=== PATIENT | female | born 1955 | race Caucasian/White ===

== ENCOUNTER → 2017-09-07 09:27 | Outpatient (CLI) | payer OTHER, SELFPAY ==
[2017-09-07 09:42] LABS: Squamous Epithelial Cells - UA 0 SEEN /hpf (5-10)
[2017-09-07 10:47] LABS: Color, Urine Yellow (Yellow); Glucose, Dipstick Normal (Normal); Ketone-Dipstick Negative (Negative); Leukocyte Esterase-Dipstick 25 /ul (Negative); Nitrite-Dipstick Negative (Negative); Occult Blood-Urine 150 /ul (Negative); Protein-Dipstick Negative (Negative); Urine Bilirubin Dipstick Negative (Negative); Urine Clarity Cloudy (Clear); Urine Urobilinogen Normal (Normal)
[2017-09-07 10:53] LABS: Bacteria RARE /hpf (None Seen); Mucous, Urine 1+ /hpf (<or=2+); Red Blood Cells-Urine 0-5 SEEN /hpf (0-5); White Blood Cells 0-5 SEEN /hpf (0-5)
[2017-09-07 10:58] LABS: Absolute Lymphocyte Count 2.17 X10^3/ul (0.83-4.51); Absolute Neutrophil Count 3.1 X10^3/uL (2.0-7.7); Basophil# 0.04 X10^3/uL; Basophil% 0.6 % (0-1); Eosinophil# 0.28 X10^3/uL; Eosinophils% 4.5 % (0-5); Hematocrit 42.1 % (37-47); Hemoglobin 14.1 g/dl (12.0-15.0); Lymphocyte # 2.17 X10^3/ul (4.0); Lymphocyte % 35.1 % (19-41); Mean Corp Hgb Conc 33.5 g/gl (32-36); Mean Corpuscular Hgb 30.9 pg (27.0-32.0); Mean Corpuscular Volume 92.3 fL (81-99); Mean Platelet Vol. 11.1 fl (6.2-12.0); Monocyte# 0.61 X10^3/uL; Monocyte% 9.9 % (0-10); Neutrophil # 3.07 X10^3/uL (2.7-7.7); Neutrophil % 49.6 % (47-70); Platelet Count 310 K/mm3 (150-450); RBC Distribution Width CV 12.1 % (11.6-14.6); Red Blood Count 4.56 M/mm3 (4.2-5.4); White Blood Count 6.2 K/mm3 (4.4-11.0)
[2017-09-07 11:02] LABS: POSITIVE COUNT NO; POSITIVE DIFFERENTIAL NO; POSITIVE MORPHOLOGY NO
[2017-09-07 11:17] LABS: Microalbumin:Creatinine Ratio 6.8 mg/g CRE (<30 mg/g CRE)
[2017-09-07 11:25] LABS: AST(SGOT) 22 U/L (15-37); Alanine Aminotransfer ALT/SGPT 36 U/L (13-56); Albumin, Serum 3.5 g/dL (3.2-5.0); Alkaline Phosphatase 106 U/L (45-117); Anion Gap 6 (5-15); BUN 14 mg/dL (7-18); BUN/Creat Ratio 19.6 RATIO (10-20); Calcium,Total 8.9 mg/dL (8.5-10.1); Chloride 106 mmol/L (98-107); Cholesterol 190 mg/dL (200); Creatinine, Serum 0.72 mg/dL (0.55-1.02); EST Glomerular Filtration Rate 87 mL/min (>60); Est Glom Filt Rate - Afr Amer 106 mL/min (>60); Globulin 3.6 g/dL (2.2-4.2); Glucose 86 mg/dL (74-106); High Density Lipoprotein 48 mg/dL; Potassium 3.9 mmol/L (3.5-5.1); Protein, Total 7.1 g/dL (6.4-8.2); Sodium Level 140 mmol/L (136-145); Thyroid Stim Hormone (TSH) 1.13 uIU/mL (0.358-3.74); Triglycerides 164 mg/dL; Very Low Density Lipoprotein 33 mg/dL (5-40)
[2017-09-09 12:07] LABS: CHOLESTEROL TOTAL 192 mg/dL (100-199); HDL-C 48 mg/dL (>39); HDL-P TOTAL 36.7 umol/L (>=30.5); SMALL LDL-P 856 nmol/L (<=527); TRIGLYCERIDES 167 mg/dL (0-149)
[2017-09-10 11:03] LABS: LDL SIZE 20.4 nm (>20.5); LDL-C 111 mg/dL (0-99); LDL-P 1558 nmol/L (<1000); LP-IR SCORE ** 70 (<=45)
== END ==
PROVIDERS: Family Provider Internal Medicine; PCP Internal Medicine; Visit Provider Internal Medicine
DX: E03.9 Hypothyroidism, unspecified (principal); E78.5 Hyperlipidemia, unspecified; I10 Essential (primary) hypertension
CPT/HCPCS: 36415; 80053; 80061; 81001; 82043; 82570; 83704; 84443; 85025

== ENCOUNTER → 2018-02-22 08:06 | Outpatient (CLI) | payer OTHER, SELFPAY | PROVIDERS: Family Provider Internal Medicine; PCP Internal Medicine; Visit Provider Nurse Practitioner Women's Health | DX: Z12.31 Encounter for screening mammogram for malignant neoplasm of breast (principal) | CPT/HCPCS: 77063; 77067 ==

== ENCOUNTER → 2019-04-24 14:11 | Outpatient (CLI) | payer MEDICARE, OTHER, SELFPAY ==
[2019-04-24 09:35] VITALS: BMI 30.4
== END ==
PROVIDERS: Family Provider Internal Medicine; PCP Internal Medicine; Visit Provider Physician Assistant Surgical
DX: J02.9 Acute pharyngitis, unspecified (principal)
CPT/HCPCS: 87070

== ENCOUNTER → 2019-05-17 08:27 | Outpatient (CLI) | payer MEDICARE, OTHER, SELFPAY ==
[2019-04-19 11:20] VITALS: BMI 30.4
[2019-04-24 09:35] VITALS: BMI 30.4
--- NOTE | 2019-05-17 08:31 | BI_ITS ---
MAMMOGRAPHY - BILATERAL SCREENING REASON FOR EXAM: Female, 63 years old. Routine annual screening examination. PERTINENT HISTORY: Non-contributory. TECHNIQUE: Digital bilateral breast yaquelin (3D mammographic acquisition) in the CC and MLO projections. 2-D mediolateral oblique (MLO) and craniocaudad (CC) views of both breasts were obtained. CAD: Full Field Digital Mammography with Computer Added Detection was performed. COMPARISON: Comparison is made with prior examination dated February 22, 2018. FINDINGS: Breast Composition: There are scattered areas of fibroglandular density. There are no dominant masses or suspicious calcifications. Stable benign-appearing bilateral axillary lymph nodes. Stable scattered calcifications in both breasts. No other significant abnormalities are identified. There has been no significant change since the prior study. BI/SCREEN MAMM (CAD) W/YAQUELIN BILAT IMPRESSION: Stable bilateral screening mammogram. Yearly follow-up mammogram recommended. (A) ASSESSMENT CATEGORY: BIRADS Category 2: Benign. A letter regarding these results will be sent to the patient by the facility within 30 days. Approximately 10% of breast cancers are not detected by mammography. A normal mammogram should not delay biopsy of a clinically suspicious abnormality. [id number] Electronically Signed: Dino Ellis, at 11:04 EDT , Service support ,
--- NOTE | 2019-05-17 09:06 | BD_ITS ---
STUDY: DUAL ENERGY X-RAY ABSORPTIOMETRY / DXA REASON FOR EXAM: Female, 63 years old. The patient is postmenopausal. Loss of height. TECHNIQUE: Bone Mineral Density (BMD) measurements of lumbar spine and bilateral hips were obtained. COMPARISON: None. FINDINGS: Lumbar Spine (L1-L4): g/cm2 (1.075) / T-score (-0.9) / Z-score (0.7) Findings are suggestive of normal bone density with a low fracture risk. Left Femur Total: g/cm2 (0.722) / T-score (-2.3) / Z-score (-1.1) Left Femoral Neck: g/cm2 (0.734) / T-score (-2.2) / Z-score (-0.7) Right Femur Total: g/cm2 (0.691) / T-score (-2.5) / Z-score (-1.3) Right Femoral Neck: g/cm2 (0.738) / T-score (-2.2) / Z-score (-0.7) BD/Dexa Bone Density Study IMPRESSION: The patient is considered osteopenic as outlined below according to World Georgi Organization (WHO) criteria with a high fracture risk. Reference Information: The T-score is the number of standard deviations above or below the standard which is normal for young adults at their peak bone mineral density. The World Health Organization (WHO) interprets the T-scores as follows: Above -1 Normal bone density Between -1 and -2.5 Osteopenia Equal to / or below -2.5 Osteoporosis As a practical clinical guideline, osteopenia may be graded as follows: Mild -1 through -1.5 Moderate -1.6 through -2.0 Severe -2.1 through -2.4 The Z-score is the number of standard deviations above or below age-matched controls. A Z-score of less than -1.5 would be considered abnormal. References: 1. NIH Osteoporosis and Related Bone Diseases http://www.osteo.org 2. International Society for Clinical Densitometry http://www.iscd.org 3. National Osteoporosis Foundation http://www.nof.org Electronically Signed: Dino Ellis, at 12:39 EDT , Service support ,
== END ==
PROVIDERS: Family Provider Internal Medicine; PCP Internal Medicine; Referring Provider Nurse Practitioner Women's Health; Visit Provider Nurse Practitioner Women's Health
DX: Z12.31 Encounter for screening mammogram for malignant neoplasm of breast (principal); Z78.0 Asymptomatic menopausal state
CPT/HCPCS: 77063; 77067; 77080

== ENCOUNTER → 2020-05-18 08:33 | Outpatient (CLI) | payer MEDICARE, OTHER, SELFPAY ==
[2020-04-23 10:27] VITALS: BMI 30.4
[2020-04-23 10:45] VITALS: BMI 30.4
--- NOTE | 2020-05-18 08:38 | BI_ITS ---
MAMMOGRAPHY - BILATERAL SCREENING REASON FOR EXAM: Female, 64 years old. Routine annual screening examination. PERTINENT HISTORY: Non-contributory. TECHNIQUE: Digital bilateral breast yaquelin (3D mammographic acquisition) in the CC and MLO projections. 2-D mediolateral oblique (MLO) and craniocaudad (CC) views of both breasts were obtained. CAD: Full Field Digital Mammography with Computer Added Detection was performed. COMPARISON: Comparison is made with prior study dated 05/17/2019 and 02/22/2018. FINDINGS: Breast Composition: There are scattered areas of fibroglandular density. There are no dominant masses or suspicious calcifications. Stable benign appearing bilateral axillary lymph nodes. Stable scattered microcalcifications more prominent in the left breast. No focal clusters seen. No other significant abnormalities are identified. There has been no significant change since the prior study. BI/SCREEN MAMM (CAD) W/YAQUELIN BILAT IMPRESSION: Stable bilateral screening mammogram. Yearly follow-up mammogram recommended. (A) ASSESSMENT CATEGORY: BIRADS Category 2: Benign. A letter regarding these results will be sent to the patient by the facility within 30 days. Approximately 10% of breast cancers are not detected by mammography. A normal mammogram should not delay biopsy of a clinically suspicious abnormality. [id number] Electronically Signed: Dino Ellis, at 10:13 EDT , Service support ,
== END ==
PROVIDERS: PCP Internal Medicine; Referring Provider Nurse Practitioner Women's Health; Visit Provider Nurse Practitioner Women's Health
DX: Z12.31 Encounter for screening mammogram for malignant neoplasm of breast (principal)
CPT/HCPCS: 77063; 77067

== ENCOUNTER → 2021-01-10 | Outpatient (CLI) | payer MEDICARE, OTHER, SELFPAY ==
[2020-04-23 10:45] VITALS: BMI 30.4
[2021-01-10 10:23] LABS: Potassium 4.6 mmol/L (3.5-5.1)
== END | disposition home or self-care (01) ==
LOC: LABSPEC 10:05
PROVIDERS: PCP Internal Medicine; Referring Provider Internal Medicine; Visit Provider Internal Medicine
DX: E87.5 Hyperkalemia (principal)
CPT/HCPCS: 84132

== ENCOUNTER → 2021-05-20 08:12 | Outpatient (CLI) | payer MEDICARE, OTHER, SELFPAY ==
[2020-04-23 10:45] VITALS: BMI 30.4
--- NOTE | 2021-05-20 08:17 | BI_ITS ---
MAMMOGRAPHY - BILATERAL SCREENING REASON FOR EXAM: Female, 65 years old. Routine annual screening examination. PERTINENT HISTORY: Non-contributory. TECHNIQUE: Digital bilateral breast yaquelin (3D mammographic acquisition) in the CC and MLO projections. 2-D mediolateral oblique (MLO) and craniocaudad (CC) views of both breasts were obtained. CAD: Full Field Digital Mammography with Computer Added Detection was performed. COMPARISON: Comparison is made with prior study 05/18/2020 and 05/17/2019. FINDINGS: Breast Composition: There are scattered areas of fibroglandular density. There are no dominant masses or suspicious calcifications. Stable scattered bilateral microcalcifications more prominent in the left breast. Stable small benign-appearing bilateral axillary lymph nodes. No other significant abnormalities are identified. There has been no significant change since the prior study. BI/SCRN MAMM (CAD)W/YAQUELIN BILAT IMPRESSION: Stable bilateral screening mammogram. Yearly follow-up mammogram recommended. (A) ASSESSMENT CATEGORY: BIRADS Category 2: Benign. A letter regarding these results will be sent to the patient by the facility within 30 days. Approximately 10% of breast cancers are not detected by mammography. A normal mammogram should not delay biopsy of a clinically suspicious abnormality. [id number] Electronically Signed: Dino Ellis MD at 9:13 EDT , Service support ,
== END ==
PROVIDERS: PCP Internal Medicine; Referring Provider Nurse Practitioner Women's Health; Visit Provider Nurse Practitioner Women's Health
DX: Z12.31 Encounter for screening mammogram for malignant neoplasm of breast (principal)
CPT/HCPCS: 77063; 77067

== ENCOUNTER → 2022-04-09 | Outpatient (CLI) | payer MEDICARE, OTHER, SELFPAY ==
--- NOTE | 2022-04-09 09:01 | BD_ITS ---
STUDY: DUAL ENERGY X-RAY ABSORPTIOMETRY / DXA REASON FOR EXAM: Female, 66 years old. [id number]. Patient is postmenopausal. TECHNIQUE: Bone Mineral Density (BMD) measurements of lumbar spine and bilateral hips were obtained. COMPARISON: Comparison is made with prior study dated 05/17/2019. FINDINGS: Lumbar Spine (L1-L4): g/cm2 (0.930) / T-score (-1.1) / Z-score (0.9) Findings are suggestive of osteopenia with a low fracture risk. Left Femur Total: g/cm2 (0.650) / T-score (-2.4) / Z-score (-1.0) Left Femoral Neck: g/cm2 (0.588) / T-score (-2.3) / Z-score (-0.6) Right Femur Total: g/cm2 (0.613) / T-score (-2.7) / Z-score (-1.3) Right Femoral Neck: g/cm2 (0.568) / T-score (-2.5) / Z-score (-0.8) The T-Scores on the most recent prior examination were: Lumbar Spine (L1-L4): There has been worsening of bone density since the previous examination. Left Femur Total: which represents a worsening of 2.1%. Right Femur Total: which represents a worsening of 3.3%. BD/Dexa Bone Density Study IMPRESSION: The patient is considered osteoporotic as outlined below according to World Georgi Organization (WHO) criteria with a high fracture risk. There has been worsening of bone density since the previous examination. Reference Information: The T-score is the number of standard deviations above or below the standard which is normal for young adults at their peak bone mineral density. The World Health Organization (WHO) interprets the T-scores as follows: Above -1 Normal bone density Between -1 and -2.5 Osteopenia Equal to / or below -2.5 Osteoporosis As a practical clinical guideline, osteopenia may be graded as follows: Mild -1 through -1.5 Moderate -1.6 through -2.0 Severe -2.1 through -2.4 The Z-score is the number of standard deviations above or below age-matched controls. A Z-score of less than -1.5 would be considered abnormal. References: 1. NIH Osteoporosis and Related Bone Diseases www osteo.org 2. International Society for Clinical Densitometry www iscd.org 3. National Osteoporosis Foundation www nof.org Electronically Signed: Dino Ellis MD at 10:58 EDT ,
== END | disposition home or self-care (01) ==
PROVIDERS: PCP Internal Medicine; Referring Provider Internal Medicine; Visit Provider Internal Medicine
DX: Z78.0 Asymptomatic menopausal state (principal); M85.80 Other specified disorders of bone density and structure, unspecified site
CPT/HCPCS: 77080

== ENCOUNTER → 2022-07-07 | Outpatient (CLI) | payer MEDICARE, OTHER, SELFPAY ==
--- NOTE | 2022-07-07 10:06 | BI_ITS ---
MAMMOGRAPHY - BILATERAL SCREENING REASON FOR EXAM: Female, 66 years old. Routine annual screening examination. PERTINENT HISTORY: Non-contributory. TECHNIQUE: Digital bilateral breast yaquelin (3D mammographic acquisition) in the CC and MLO projections. 2-D mediolateral oblique (MLO) and craniocaudad (CC) views of both breasts were obtained. CAD: Full Field Digital Mammography with Computer Added Detection was performed. COMPARISON: Comparison is made with prior examination 05/20/2021 and 05/18/2020. FINDINGS: Breast Composition: There are scattered areas of fibroglandular density. There are no dominant masses or suspicious calcifications. Stable benign-appearing bilateral axillary lymph nodes. No other significant abnormalities are identified. There has been no significant change since the prior study. BI/SCRN MAMM (CAD)W/YAQUELIN BILAT IMPRESSION: Stable bilateral screening mammogram. Yearly follow-up mammogram recommended. (A) ASSESSMENT CATEGORY: BIRADS Category 2: Benign. A letter regarding these results will be sent to the patient by the facility within 30 days. Approximately 10% of breast cancers are not detected by mammography. A normal mammogram should not delay biopsy of a clinically suspicious abnormality. [id number] Electronically Signed: Dino Ellis MD at 11:11 [facility] ,
== END | disposition home or self-care (01) ==
LOC: OPBI 10:06
PROVIDERS: PCP Internal Medicine; Visit Provider Internal Medicine
DX: Z12.31 Encounter for screening mammogram for malignant neoplasm of breast (principal)
CPT/HCPCS: 77063; 77067

== ENCOUNTER → 2022-10-16 | Outpatient (CLI) | payer MEDICARE, OTHER, SELFPAY ==
[2022-10-16 10:03] LABS: Potassium 5.4 mmol/L (3.5-5.1)
== END | disposition home or self-care (01) ==
LOC: LABSPEC 09:40
PROVIDERS: PCP Internal Medicine; Referring Provider Internal Medicine; Visit Provider Internal Medicine
DX: E87.5 Hyperkalemia (principal)
CPT/HCPCS: 84132

== ENCOUNTER → 2023-09-02 | Outpatient (CLI) | payer MEDICARE, OTHER, SELFPAY ==
--- NOTE | 2023-09-02 10:02 | BI_ITS ---
MAMMOGRAPHY - BILATERAL SCREENING REASON FOR EXAM: Female, 67 years old. Routine annual screening examination. PERTINENT HISTORY: Non-contributory. TECHNIQUE: Digital bilateral breast yaquelin (3D mammographic acquisition) in the CC and MLO projections. 2-D mediolateral oblique (MLO) and craniocaudad (CC) views of both breasts were obtained. CAD: Full Field Digital Mammography with Computer Added Detection was performed. COMPARISON: Comparison is made with prior study of July 07, 2022 and May 20, 2021. FINDINGS: Breast Composition: There are scattered areas of fibroglandular density. There are no dominant masses or suspicious calcifications. Stable benign-appearing bilateral axillary lymph nodes. No other significant abnormalities are identified. There has been no significant change since the prior study. BI/SCRN MAMM (CAD)W/YAQUELIN BILAT IMPRESSION: Stable bilateral screening mammogram. Yearly follow-up mammogram recommended. (A) ASSESSMENT CATEGORY: BIRADS Category 2: Benign. A letter regarding these results will be sent to the patient by the facility within 30 days. Approximately 10% of breast cancers are not detected by mammography. A normal mammogram should not delay biopsy of a clinically suspicious abnormality. [id number] Electronically Signed: Dino Ellis MD at 12:21 EST ,
== END | disposition home or self-care (01) ==
LOC: OPBI 10:02
PROVIDERS: PCP Internal Medicine; Referring Provider Nurse Practitioner Women's Health; Visit Provider Nurse Practitioner Women's Health
DX: Z12.31 Encounter for screening mammogram for malignant neoplasm of breast (principal)
CPT/HCPCS: 77063; 77067

== ENCOUNTER → 2024-09-06 | Outpatient (CLI) | payer MEDICARE, OTHER, SELFPAY ==
--- NOTE | 2024-09-06 08:31 | BI_ITS ---
PROCEDURE: SCRN MAMM (CAD)W/YAQUELIN BILAT REASON FOR EXAM: F, Age 68 y/o, routine annual mammogram. TECHNIQUE: Bilateral screening digital breast tomosynthesis with 2D and 3D images. Computer aided detection. COMPARISON: Prior exam(s) dating back to September 02, 2023. FINDINGS: The breasts are heterogeneously dense which may obscure small masses. Stable examination. No suspicious masses, areas of developing architectural distortion, or suspicious calcifications. BI/SCRN MAMM (CAD)W/YAQUELIN BILAT IMPRESSION: BI-RADS 1: NEGATIVE. RECOMMEND ANNUAL MAMMOGRAPHIC SCREENING. Follow-up code: Routine Follow-up The patient will be notified of the results by letter. Reading Location: [id number]
== END | disposition home or self-care (01) ==
LOC: OPBI 08:30
PROVIDERS: PCP Internal Medicine; Referring Provider Nurse Practitioner Women's Health; Visit Provider Nurse Practitioner Women's Health
DX: Z12.31 Encounter for screening mammogram for malignant neoplasm of breast (principal)
CPT/HCPCS: 77063; 77067

== ENCOUNTER → 2025-03-06 | Outpatient (CLI) | payer MEDICARE, OTHER, SELFPAY ==
--- NOTE | 2025-03-06 08:28 | US_ITS ---
PROCEDURE: BREAST LIMITED UNILATERAL 03/06/2025 REASON FOR EXAM: F, Age 69 y/o , LEFT BREAST PAIN COMPARISON: Mammogram studies dated 03/06/2025, 09/06/2024, and 09/02/2023.. TECHNIQUE: BREAST LIMITED UNILATERAL FINDINGS: There is no ultrasound abnormality identified in the lower outer quadrant of the left breast to correlate to the breast pain. This area appears to represent normal breast tissue. No suspicious solid or cystic masses are seen. The skin is not abnormally thickened. US/Breast Limited Unilateral IMPRESSION: Unremarkable left breast ultrasound exam. The patient should return in 1 year for routine yearly screening mammography. BI-RADS 1: NEGATIVE RECOMMENDATION: Routine annual follow-up in 1 Year Reading Location: [id number]
--- NOTE | 2025-03-06 08:28 | BI_ITS ---
EXAM: DIAG MAMM W/CAD, BILAT 03/06/2025 CLINICAL HISTORY: F, Age 69 y/o , DIAGNOSTIC BEFORE US CAN BE SCHEDULED. Left breast pain. Pain lower outer quadrant left breast. TECHNIQUE: DIAG MAMM W/CAD, BILAT. COMPARISON: Prior exam(s) dated 09/06/2024 and 09/02/2023. FINDINGS: TISSUE DENSITY: There are scattered areas of fibroglandular density. Bilateral Breast Mammographic Findings: There is no mammographic abnormality identified in the lower outer quadrant of the left breast to correlate to her pain. Further workup with ultrasound will be performed. Benign-appearing secretory type calcifications and round calcifications are seen in the left breast. Benign-appearing secretory type calcifications, vascular calcifications and round calcifications are seen in the right breast. No suspicious masses or suspicious calcifications are seen in either breast. BI/DIAG MAMM W/CAD, BILAT IMPRESSION: There is no mammographic abnormality in the left breast to correlate to the dave ast pain. Further workup with ultrasound will be performed for further evaluation. OVERALL FINAL ASSESSMENT BI-RADS 0: INCOMPLETE - NEED ADDITIONAL IMAGING EVALUATION. RECOMMENDATION: Ultrasound Recommended A letter with findings and recommendations will be mailed to the patient. Reading Location: [id number]
== END | disposition home or self-care (01) ==
PROVIDERS: PCP Internal Medicine; Referring Provider Nurse Practitioner Women's Health; Visit Provider Nurse Practitioner Women's Health
DX: R92.8 Other abnormal and inconclusive findings on diagnostic imaging of breast (principal); N64.4 Mastodynia
CPT/HCPCS: 76642; 77062; 77066; G0279

== ENCOUNTER → 2025-05-11 | Outpatient (CLI) | payer MEDICARE, OTHER, SELFPAY ==
[2025-05-11 17:56] LABS: Hematocrit 42.4 % (37-47); Hemoglobin 13.9 g/dL (12.0-15.0); Immature Granulocytes Count 0.020 X10^3/uL (0.0-0.0); Mean Corp Hgb Conc 32.8 g/dL (32-36); Mean Corpuscular Volume 91.2 fL (81-99); Mean Platelet Vol. 11.1 fl (6.2-12.0); NRBC Flagged by Analyzer 0 % (0-5); Platelet Count 370 K/mm3 (150-450); RBC Distribution Width CV 12.2 % (11.6-14.6); RBC Distribution Width SD 40.7 fl (35.1-43.9); Red Blood Count 4.65 M/mm3 (4.2-5.4); White Blood Count 8.5 K/mm3 (4.4-11.0)
[2025-05-11 18:30] LABS: AST(SGOT) 27 U/L (<=31); Alanine Aminotransfer ALT/SGPT 18 U/L (<=34); Albumin, Serum 4.5 g/dL (3.4-4.8); Alkaline Phosphatase 103 U/L (35-104); Anion Gap 13 (5-15); BUN 9 mg/dL (4-19); BUN/Creat Ratio 12.0 RATIO (10-20); Calcium,Total 10.6 mg/dL (7.6-11.0); Carbon Dioxide 26.5 mmol/L (21.0-32.0); Chloride 104 mmol/L (98-108); Globulin 2.8 g/dL (2.2-4.2); Glucose 104 mg/dL (70-99); Potassium 3.9 mmol/L (3.3-5.1)
== END | disposition home or self-care (01) ==
LOC: MTLAB 16:02
PROVIDERS: PCP Internal Medicine; Referring Provider Internal Medicine; Visit Provider Internal Medicine
DX: R41.82 Altered mental status, unspecified (principal)
CPT/HCPCS: 36415; 80053; 85025

== ENCOUNTER → 2025-05-17 | Outpatient (CLI) | payer MEDICARE, OTHER, SELFPAY | END | disposition home or self-care (01) | PROVIDERS: PCP Internal Medicine; Referring Provider Internal Medicine; Visit Provider Internal Medicine | DX: R07.89 Other chest pain (principal); R94.31 Abnormal electrocardiogram [ECG] [EKG] | CPT/HCPCS: 93225; 93226 ==

== ENCOUNTER → 2025-06-06 | Outpatient (CLI) | payer MEDICARE, OTHER, SELFPAY ==
--- NOTE | 2025-06-06 06:41 | ECHOD_ITS ---
Reason For Study Reason For Study: CHEST PRESSURE Procedure This was a 2D Doppler, Color Flow transthoracic echocardiogram. Exam performed in department. Left Ventricle Normal size and thickness. The left ventricular ejection fraction is 65 %. Normal diastololic function. Right Ventricle Normal right ventricle. Atria The left and right atria are normal. Mitral Valve Mild (1+) mitral valve insufficiency. Tricuspid Valve Moderate-Severe (3+) tricuspid valve insufficiency. Normal pulmonary artery pressure. Aortic Valve Trisinus/trileaflet aortic valve. Pulmonic Valve The pulmonic valve is not well visualized. Mild (1+) pulmonic valve insufficiency. Great Vessels Normal sized aortic root. Pericardium/Pleural No pericardial effusion. MMode/2D Measurements & Calculations LVIDd: 3.8 cm IVSd: 0.85 cm Ao root diam: 3.3 cm LVIDs: 2.0 cm LVPWd: 0.93 cm RVDd: 3.0 cm FS: 47.6 % LAV(MOD-bp): 43.2 ml LVAd ap4: 22.1 cm2 LVAd ap2: 19.8 cm2 LAV(MOD-bp) Indexed: 26.4 ml/m2 LVLd ap4: 6.8 cm LVLd ap2: 6.5 cm LAV(MOD-sp2): 40.0 ml EDV(MOD-sp4): 60.2 ml EDV(MOD-sp2): 51.5 ml LAV(MOD-sp4): 42.8 ml EDV(sp4-el): 60.5 ml EDV(sp2-el): 51.1 ml LVAs ap4: 10.3 cm2 LVAs ap2: 8.6 cm2 LVLs ap4: 5.1 cm LVLs ap2: 5.0 cm ESV(MOD-sp4): 18.4 ml ESV(MOD-sp2): 14.9 ml ESV(sp4-el): 17.8 ml ESV(sp2-el): 12.6 ml EF(MOD-sp4): 69.4 % EF(MOD-sp2): 71.2 % EF(sp4-el): 70.5 % SV(MOD-sp4): 41.8 ml SV(MOD-sp2): 36.6 ml SV(sp4-el): 42.7 ml SI(MOD-sp4): 25.5 ml/m2 SI(MOD-sp2): 22.4 ml/m2 LA A4 area: 16.7 cm2 LA dimension(2D): 3.7 cm RA A4 area: 13.5 cm2 TAPSE: 2.0 cm Time Measurements MV dec time: 0.33 sec Doppler Measurements & Calculations MV E max wilbur: 69.8 cm/sec Lat Peak E' Wilbur: 10.6 cm/sec Med Peak E' Wilbur: 6.5 cm/sec MV A max wilbur: 69.8 cm/sec E/E' lat: 6.6 E/E' med: 10.8 MV E/A: 1.0 Ao V2 max: 141.1 cm/sec LV V1 max: 129.3 cm/sec MV dec slope: 208.9 cm/sec2 Ao max P.0 mmHg LV V1 max P.7 mmHg Ao V2 mean: 94.5 cm/sec LV V1 mean P.4 mmHg Ao mean P.2 mmHg LV V1 mean: 85.1 cm/sec Ao V2 VTI: 33.7 cm LV V1 VTI: 31.1 cm AV (velocity ratio): 0.92 PA V2 max: 78.5 cm/sec PI end-d wilbur: 90.8 cm/sec TR max wilbur: 243.9 cm/sec TR max P.8 mmHg ECHO/Echo Complete Interpretation Summary The left ventricular ejection fraction is 65 %. Mild (1+) mitral valve insufficiency. Moderate-Severe (3+) tricuspid valve insufficiency. Mild (1+) pulmonic valve insufficiency. Ordering Physician: Sherly Avilez Referring Physician: Sherly Avilez Performed By: Tonio Armstrong [facility]
--- OUTSIDE RECORDS SUMMARY | 2025-06-06 06:46 | XMS RPT_ITS | CCD ---
Author Organization [facility] Care Team Providers Care Pipe Threader Name Role Phone Ana Bacon Mee Unavailable Unavailable Duran, Gene Unavailable Unavailable Duran, Gene Unavailable Unavailable Fatmata, Deanna Unavailable Maggi Tena Unavailable Unavailable Unavailable Unavailable Deanna Aponte Unavailable Maggi Tena Unavailable Unavailable Unavailable Unavailable Divya Tena Unavailable Unavailable Gravius, Nereida Unavailable Unavailable Unruly Calero Unavailable Tracey Salomon Unavailable Unavailable Maggi Tena Unavailable Unavailable Gravius, Nereida Unavailable Unavailable Dell Susan Unavailable Unavailable Slarb, Kacy Unavailable Unavailable Napoleon, Guadalupe Unavailable Unavailable Chuck Schmitt Unavailable Unavailable Ciesa, Vanessa Unavailable Fatmata ESCOBEDO Deanna Unavailable Dr. Unruly Calero Unavailable Chuck Schmitt LPN Unavailable Unavailable Ciesa DELIVERY TRUCK DRIVER, Vanessa Unavailable Slarb BRUSH MACHINE SETTER, Kacy Unavailable Unavailable Susan Sharpe LPN Unavailable Unavailable Gravius FORKLIFT TRUCK OPERATOR, Nereida Unavailable Unavailable Maggi Tena RN Unavailable Unavailable Unavailable Unavailable Tracey Salomon LPN Unavailable Unavailable Fatmata DO Deanna Unavailable Dhiraj Hooper CMA Unavailable Unavailable Deanna Aponte DO Primary Care Provider Xavier River MD Unavailable Jose ALBERTS, Yanira Kyle Unavailable Royce Peterson PA-C, AlenC Unavailable Unavailab Divya Hickman RN Unavailable Jemima River MDh A Unavailable Deanna Aponte DO Primary Care Provider Yanira Garcia MD Unavailable [phone] Royce Peterson PA-C, Jayden Unavailable Unavailab julianna Solomon RN, Divya Unavailable Unavailable Unavailable Zurdo OMER, Janie Unavailable Unavailable Isha Zapata MA Unavailable Unavailable Deanna Aponte DO Attending Unavailable Deanna Aponte DO Referring Unavailable Deanna Aponte DO, Dr. Kathleen Primary Care Provider Dr. Deanna Aponte Referring Provider Dorothy SHEARER PRINTED CIRCUIT BOARDS, SHEARER PRINTED CIRCUIT BOARDS-C Shruti Attending Provider MD Storm Acharya Attending Provider Unavailab Deanna Aguero DO Primary Care Provider Lashay BRUSH MACHINE SETTER, Wilbur Unavailable Unavailable Jose BRUSH MACHINE SETTER, JANNIE Unavailable Unavailable Neha CAMPOS, Divya Unavailable Dr. Deanna Aponte Primary Care Provider Dr. Deanna Aponte Referring Provider Dorothy SHEARER PRINTED CIRCUIT BOARDS, SHEARER PRINTED CIRCUIT BOARDS-C Shruti Attending Provider Deanna Aponte DO Primary Care Provider Zaire PT, Candace Unavailable Zaire PT, Candace Unavailable Neha CAMPOS, Divya Unavailable VIDAL SCHMITT Referring Unavailable DEANNA APONTE Primary Care Unavailab VIDAL Smith Referring Unavailable DEANNA APONTE Primary Care Unavailab LALITHA Hennessy Referring Unavailable DEANNA APONTE Primary Care Unavailab DEANNA Aguero Primary Care Unavailab YANIRA Moe Referring Unavailable YANIRA GARCIA Referring Unavailable DEANNA APONTE Primary Care Unavailab YANIRA Moe Referring Unavailable FATMATA DEANNASUZANNA HOYT Primary Care Unavailab le SZIRAYANIRA MONTALVO Referring Unavailable FATMATA, DEANNASUZANNA HOYT Primary Care Unavailab KEMAL Mcneil Attending Unavailable YANIRA GARCIA E Referring Unavailable FATMATA, DEANNASUZANNA HOYT Primary Care Unavailab le SZIRAKATIA, YANIRA E Referring Unavailable FATMATA, DEANNASUZANNA HOYT Primary Care Unavailab le ALDRICH, KEMAL A Attending Unavailable EDILIAIRAKATIA, YANIRA E Referring Unavailable FATMATA, DEANNASUZANNA HOYT [facility] Care Unavailab le FATMATA, DEANNA HOYT Primary Care Unavailab le CASEY GARCIA Attending Unavailable FATMATA, DEANNA HOYT Primary Care Unavailab le PROVIDER, UNKNOWN Referring Unavailable FATMATA, DEANNASUZANNA HOYT Primary Care Unavailab le EDILIAIRAKATIA, YANIRA E Admitting Unavailable YANIRA GARCIA Attending Unavailable FATMATA, DEANNA HOYT [facility]av[facility]ab [employer] Unavailable FATMATA, DEANNA HOYT [facility] Care Unavailab le JOSE, YANIRA E Attending Unavailable EDILIAIRAKATIA, YANIRA E Attending Unavailable FATMATA, DEANNASUZANNA HOYT [facility] Unavailab le JOSE, YANIRA E Attending Unavailable FATMATA, DEANNASUZANNA HOYT Primary Care Unavailab le Fatmata DO, Dr. Dubois Primary Care Provider Dr. Deanna Aponte DO Referring Provider Dorothy SHEARER PR[employer]ED CIRCUIT BOARDS-C, Shruti Attending Provider Cochrane SHEARER [employer]ED [employer] BOARDS-C Shruti Referring Provider Deanna Aponte Attending Unavailable Fatmata, Deanna Referring Unavailable Fatmata, Deanna Primary Care Unavailable Cochrane SHEAR[employer] BOARDS, Shruti Attending Unavailable Cochrane SHEARER PRINTED CIRCUIT BOARDS, Shruti Referring Unavailable Fatmata, Deanna Primary Care Unavailable Dorothy SHEARER PRINTED CIRCUIT BOARDS, Shruti Attending Unavailable Fatmata, Deanna Referring Unavailable Fatmata, Deanna Primary Care Unavailable Dorothy SHEARER PRINTED CIRCUIT BOARDS, Shruti Attending Unavailable Fatmata, Deanna Referring Unavailable Fatmata, Deanna Primary Care Unavailable Fatmata, Deanna Attending Unavailable Fatmata, Deanna Referring Unavailable Fatmata, Deanna Primary Care Unavailable Dorothy SHEARER PR[employer]ED CIRCUIT BOARDS, Shruti Attending Unavailable Cochrane SHEARER PRINTED CIRCUIT BOARDS, Shruti Referring Unavailable Fatmata, Deanna Primary Care Unavailable Fatmata, Deanna Attending Unavailable Deanna Aponte Referring Unavailable Deanna Aponte Primary Care Unavailable Allergies Allergy Classification Reported Allergen(s) Allergy Type Date of Onset Reaction(s) Facility Cephalosporins (antibiotic) (6 sources) Cefaclor; Translations: [Ceclor *CEPHALOSPORINS *] Drug Allergy 02-04-20 18 Mental Status Change, Rash [facility]; [facility] Work Phone: Penicillins (antibiotic) (3 sources) Amoxicillin Drug Allergy 12-13-19 [facility] (1 source) YES - ALLERGIES EXIST; Translations: [YES - ALLERGIES EXIST] Propensity to adverse reactions (disorder) [facility] (1 source) NO FOOD ALLERGIES; Translations: [NO FOOD ALLERGIES] Propensity to adverse reactions (disorder) [facility] (1 source) NO IVP DYE / IODINE ALLERGY; Translations: [NO IVP DYE / IODINE ALLERGY] Propensity to adverse reactions (disorder) [facility] (1 source) NO LATEX ALLERGY; Translations: [NO LATEX ALLERGY] Propensity to adverse reactions (disorder) [facility] (20 sources) Cefaclor; Translations: [Ceclor *CEPHALOSPORINS *] Drug Allergy 02-04-20 18 Mental Status Change, Rash [facility] Work Phone: (8 sources) natural latex rubber; Translations: [LATEX, NATURAL RUBBER] Propensity to adverse reactions 04-19-20 [facility] (16 sources) Penicillin Drug Allergy Rash [facility]; [facility] Work Phone: (20 sources) Amoxicillin; Translations: [AMOXICILLIN] Drug Allergy 12-13-19 23 [facility] (4 sources) Latex Drug Allergy 04-19-20 [facility] (4 sources) Cefaclor; Translations: [CEFACLOR] Drug Allergy 02-04-20 [facility] (1 source) Amoxicillin Drug Allergy 02-23-20 [facility] (1 source) natural latex rubber Drug allergy (disorder) 02-23-20 [facility] Rep[facility] Medications Current Medications Medication Drug Class(es) Dates Sig (Normalized) Sig (Original) acetaminophen 500 mg oral tablet (20 sources) Start: 12-04-2023 take 2 tablets by mouth every eight hours as needed acetaminophen (TYLENOL) 500 mg tablet Take 2 tablets by mouth every 8 hours as needed for pain. 90 tablet 12/04/2023 Active Start: 05-17-2022 End: 12-28-2022 take 2 tablets by mouth every eight hours as needed acetaminophen (TYLENOL) 500 mg tablet Take 2 tablets by mouth three times daily as needed for pain. 84 tablet 0 05/17/2022 12/28/2022 Discontinued Comment on above: Take 2 tablets by mo [facility] three times daily as needed for pain. ascorbic acid 500 mg oral tablet (20 sources) Vitamin C Start: 12-04-2023 End: 12-18-2023 take 1 tablet by mouth twice daily at mealtime ascorbic acid, vitamin C, (VITAMIN C) 500 mg tablet Take 1 tablet by mouth two times a day with meals for 27 doses. 27 tablet 12/04/2023 Active ascorbic acid (V ITAMIN C ORAL) Take by mouth. 0 Suspended Comment on above: Take by mouth. aspirin 81 mg delayed release oral tablet (20 sources) Platelet Aggregation Inhibitor, Nonsteroidal Anti-inflammatory Drug Start: 12-04-2023 End: 01-01-2024 take 1 tablet by mouth twice daily aspirin, enteric coated (ASPIRIN, ENTERIC COATED) 81 mg EC tablet Take 1 tablet by mouth two times a day for 28 days. 56 tablet 12/04/2023 Active Start: 05-17-2022 aspirin, enter ic coated (ECOTRIN LOW STRENGTH) 81 mg EC tablet [The details of the medication are not available because there are pending changes by a home health clinician.] 60 tablet 0 05/17/2022 Active Comment on above: Take 1 tablet by [facility] twice daily. [The details of the medication are not available because there are pending changes by a home health clinician.] azithromycin 250 mg oral tablet (20 sources) Macrolide Antimicrobial Start: 08-05-2024 azithromycin (ZITHROMAX Z-WILLIAM) 250 mg tablet Indications: Bacterial sinusitis 2 tablets by mouth first day then 1 tablet the next 4 days 6 tablet 08/05/2024 Active Start: 09-12-2022 End: 09-19-2022 take 1 tablet by mouth once daily azithromycin 500 mg oral tablet 1 (one) tablet qd for 7 days Quantity: 7 {Tablet} Refills: 0 Ordered: 12-Sep-2022 Janie Renner CMA Start : 12-Sep-2022 End : 19-Sep-2022 Inactive Start: 09-10-2022 End: 04-13-2023 take 1 tablet by mouth once daily Zithromax Z-William 250 mg oral tablet tad tablet qd for 0 days Quantity: 1 {Unspecified} Refills: 0 Ordered: 13-Apr-2023 Wilbur Metz LPN Start : 10-Sep-2022 End : 13-Apr-2023 Discontinued Comments: dispense one package Comment on above: dispense one package calcium carbonate 1250 mg oral tablet (9 sources) Start: 04-23-20 take 1 tablet by mouth once daily Calcium Carbonate (Calcium 500) 500 mg calcium (1,250 mg) tablet Active 500 mg PO DAILY April 23, 2020 12:00am cholecalciferol 0.025 mg oral capsule (5 sources) Vitamin D Start: 04-24-20 19 take 1 capsule by mouth once daily Cholecalciferol (Vitamin D3) 1,000 unit capsule Active 1000 U PO DAILY April 24, 2019 12:00am cholecalciferol, vitamin D3, (VITAMIN D3 ORAL) (20 sources) Start: 05-29-20 22 take 1 capsule by mouth once daily cholecalciferol, vitamin D3, (VITAMIN D3 ORAL) Take 1 capsule by mouth once daily. 05/29/2022 Active Start: 05-29-2022 take 1 capsule by mo uth once daily cholecalciferol, vitamin D3, (VITAMIN D3 ORAL) Take 1 capsule by mouth once daily. 0 05/29/2022 Active Start: 05-29-2022 cholecalcifero l, vitamin D3, (VITAMIN D3 ORAL) [The details of the medication are not available because there are pending changes by a home health clinician.] 0 05/29/2022 Active cholecalciferol, vitamin D3, (VITAMIN D3 ORAL) Take by mouth. 0 Active cholecalciferol, vitamin D3, (VITAMIN D3 ORAL) Take by mouth. 0 Suspended Comment on above: Take by mouth. [The details of the medication are not available because there are pending changes by a home health clinician.] Take 1 capsule by mo uth once daily. clindamycin 300 mg oral capsule (20 sources) Lincosamide Antibacterial Start: 09-04-19 End: 11-24-19 25 take 2 capsules by mouth every hour clindamycin (CLEOCIN) 300 mg capsule Indications: Status post total right knee replacement Take two capsules by mouth one hour prior to dental appointment. 2 capsule 3 11/23/2024 Active Start: 12-28-2022 End: 01-04-2023 take 1 capsule by mouth three times daily clindamycin (CLEOCIN) 300 mg capsule Indications: Submandibular lymphadenitis Take 1 capsule by mouth three times daily for 7 days. 21 capsule 0 12/28/2022 01/04/2023 Active Start: 02-18-2022 End: 12-28-2022 take 2 capsules by mouth every hour clindamycin (CLEOCIN) 300 mg capsule Indications: Status post total right knee replacement Take two capsules by mouth one hour prior to dental appointment. 2 capsule 3 02/18/2022 12/28/2022 Discontinued Comment on above: Take two capsules by mouth one hour prior to dental appointment. Take 1 capsule by mo uth three times daily for 7 days. Lactobacillus acidophilus (20 sources) Start: 05-29-20 take 1 capsule by mouth once daily Lactobacillus acidophilus (PROBIOTIC ORAL) Take 1 capsule by mouth once daily. 05/29/2022 Active Start: 05-29-2022 take 1 capsule by mo uth once daily Lactobacillus acidophilus (PROBIOTIC ORAL) Take 1 capsule by mouth once daily. 0 05/29/2022 Active Start: 05-29-2022 Lactobacillus acidophilus (PROBIOTIC ORAL) [The details of the medication are not available because there are pending changes by a home health clinician.] 0 05/29/2022 Active Lactobacillus ac idophilus (PROBIOTIC ORAL) Take by mouth. 0 Suspended Lactobacillus ac idophilus (PROBIOTIC ORAL) Take by mouth. 0 Active Comment on above: Take by mouth. [The details of the medication are not available because there are pending changes by a home health clinician.] Take 1 capsule by mo uth once daily. Lactobacillus Combination No.8 (Adult Probiotic) 3 billion cell capsule (5 sources) Start: 04-23-20 20 take 3 capsules by mouth once daily Lactobacillus Combination No.8 (Adult Probiotic) 3 billion cell capsule Active 3000 NMA PO DAILY April 23, 2020 12:00am administer with a meal Start: 04-23-2020 take 3 capsules by m outh once daily Lactobacillus Combination No.8 (Adult Probiotic) 3 billion cell capsule Active 3000 MMU CELLS PO DAILY April 23, 2020 12:00am administer with a meal Start: 04-23-2020 take 3 capsules by m outh once daily Lactobacillus Combination No.8 (Adult Probiotic) 3 billion cell capsule Active 3000 MMU CELLS PO DAILY April 22, 2020 11:00pm administer with a meal levothyroxine sodium 0.05 mg oral tablet (20 sources) l-Thyroxine Start: 05-28-2023 take 1 tablet by mouth once daily Synthroid 50 mcg oral tablet 1 Tablet qd for 90 days Quantity: 90 {Tablet} Refills: 3 Ordered: 28-May-2023 Fatmata DO, Deanna Fatmata DOChristalDeanna Start : 28-May-2023 Active Comments: Mail order. Start: 05-28-2023 take 1 tablet by delroy th once daily Synthroid 50 mcg oral tablet 1 Tablet qd for 90 days Quantity: 90 {Tablet} Refills: 3 Ordered: 28-May-2023 Fatmata DO, Deanna Aponte DOChristalDeanna Start : 28-May-2023 Active Comments: Mail order. Start: 05-09-2022 take 1 tablet by delroy th once daily Synthroid 50 MCG Oral Tablet 1 Tablet qd for 90 days Quantity: 90 {Tablet} Refills: 3 Ordered: 09-May-2022 Fatmata DO, Deanna Fatmata DO Deanna Start : 09-May-2022 Active Comments: Mail order. Start: 04-21-2022 take 1 tablet by delroy th once daily Synthroid 50 MCG Oral Tablet 1 Tablet qd for 90 days Quantity: 90 {Tablet} Refills: 3 Ordered: 21-Apr-2022 Fatmata DO, Deanna Fatmata DO Deanna Start : 21-Apr-2022 Active Comments: Mail order. Start: 02-26-2022 take 1 tablet by delroy th once daily Synthroid 50 MCG Oral Tablet 1 Tablet qd for 90 days Quantity: 90 {Tablet} Refills: 3 Ordered: 26-Feb-2022 Fatmata DO, Deanna Fatmata DO Deanna Start : 26-Feb-2022 Active Comments: Mail order. Start: 12-12-2021 take 1 tablet by delroy th once daily Synthroid 50 MCG Oral Tablet 1 Tablet qd for 90 days Quantity: 90 {Tablet} Refills: 1 Ordered: 12-Dec-2021 Deanna Aponte DO, DO, Kathleen Start : 12-Dec-2021 Active Comments: Mail order. Start: 02-03-2018 take 1 tablet by delroy th once daily Levothyroxine (Synthroid) 50 mcg tablet Active 50 ug PO daily February 03, 2018 12:00am Comment on above: Mail order. Take 1 tablet by delroy th daily before breakfast. montelukast 10 mg oral tablet (20 sources) Leukotriene Receptor Antagonist Start: 8 take 1 tablet by mouth once daily in the evening Montelukast 10 mg tablet Active 10 mg PO EVERY EVENING February 03, 2018 12:00am Comment on above: Mail order. Take 1 tablet by delroy th daily at bedtime. Multivitamin preparation (3 sources) Start: 8 take 1 tablet by mouth once daily Multivitamin Active 1 TABLET PO daily February 03, 2018 12:00am Start: 02-03-2018 take 1 tablet by delroy th once daily Multivitamin Active 1 TABLET PO daily February 02, 2018 11:00pm Multivitamin tablet (2 sources) Start: 02-03-2018 Multivitamin t ablet Active 1 {tbl} PO daily February 03, 2018 12:00am mupirocin 0.02 mg/mg topical ointment (3 sources) RNA Synthetase Inhibitor Antibacterial Start: 11-12-2023 End: 11-17-2023 mupirocin (BACTROBAN) 2 % ointment Indications: Pre-op evaluation two times a day for 5 days. Apply 0.5 inch with cotton swab (Q-tip) to each nostril in the morning and evening for 5 days prior to and including day of surgery. 22 g 0 11/12/2023 11/17/2023 Active Comment on above: two times a day for 5 days. Apply 0.5 inch with cotton swab (Q-tip) to each nostril in the morning and evening for 5 days prior to and including day of surgery. oxyCODONE hydrochloride 5 mg oral tablet (20 sources) Opioid Agonist Start: 12-04-2023 End: 12-11-2023 oxyCODONE IR (ROXICODONE) 5 mg immediate release tablet Indications: S/P revision of total knee, right [The details of the medication are not available because there are pending changes by a home health clinician.] 50 tablet 0 12/04/2023 12/11/2023 Active Start: 05-17-2022 End: 05-22-2022 oxyCODONE IR (ROXICODONE) 5 mg immediate release tablet Indications: Pain due to internal orthopedic prosthetic devices, implants and grafts, initial encounter ([facility]) , Infected orthopedic implant, sequela , Status post total right knee replacement [The details of the medication are not available because there are pending changes by a home health clinician.] 42 tablet 0 05/17/2022 05/22/2022 Discontinued (Course of therapy completed) Comment on above: Take 1-2 tablets by mouth every 8 hours as needed for pain. [The details of the medication are not available because there are pending changes by a home health clinician.] polyethylene glycol 3350 72177 mg powder for oral solution (9 sources) Osmotic Laxative Start: 12-04-2023 End: 12-14-2023 polyethylene glycol 3350 (MIRALAX) 17 gram/dose powder Take 17 g by mouth once daily as needed for constipation for up to 10 days. Dissolve dose in 4 - 8 ounces of liquid and take as directed. 170 g 0 12/04/2023 12/14/2023 Active rosuvastatin calcium 40 mg oral tablet (20 sources) HMG-CoA Reductase Inhibitor Start: 02-22-2025 Rosuvastatin 40 mg tablet Active 20 mg PO DAILY February 22, 2025 11:38am Start: 04-14-2019 End: 02-22-2025 take 1 tablet by mouth once daily Rosuvastatin 40 mg tablet Discontinued 40 mg PO DAILY April 19, 2019 12:00am February 22, 2025 11:39am Start: 01-25-2019 take 1 tablet by delroy th once daily Crestor 40 MG Oral Tablet 1 (one) Tablet qd for 90 days Quantity: 90 {Tablet} Refills: 3 Ordered: 25-Jan-2019 Deanna Aponte DO, DO, Kathleen Start : 25-Jan-2019 Active Comments: Mail order. Start: 11-15-2018 End: 11-18-2018 take 1 tablet by mouth once daily Crestor 40 MG Oral Tablet 1 (one) Tablet qd for 90 days Quantity: 90 {Tablet} Refills: 3 Ordered: 18-Nov-2018 Nereida Philip Start : 15-Nov-2018 End : 18-Nov-2018 Discontinued Comments: Mail order. Comment on above: Mail order. Take 40 mg by mouth once daily. therapeutic multivitamin (THERA VITAMIN) tablet (20 sources) Start: 02-03-2018 take 1 tablet by mouth once daily therapeutic multivitamin (THERA VITAMIN) tablet Take 1 tablet by mouth once daily. 02/03/2018 Active Start: 02-03-2018 take 1 tablet by delroy th once daily therapeutic multivitamin (THERA VITAMIN) tablet Take 1 tablet by mouth once daily. 0 02/03/2018 Suspended Start: 02-03-2018 take 1 tablet by delroy th once daily therapeutic multivitamin (THERA VITAMIN) tablet Take 1 tablet by mouth once daily. 0 02/03/2018 Active Comment on above: Take 1 tablet by delroy th once daily. vancomycin (VANCOCIN) 1.25 gram/250 mL in dextrose 5% (13 sources) Start: 05-23-2022 End: 06-26-2022 vancomycin (VANCOCIN) 1.25 gram/250 mL in dextrose 5% [The details of the medication are not available because there are pending changes by a home health clinician.] [id number] mL 0 05/23/2022 06/26/2022 Active Start: 05-23-2022 End: 06-26-2022 inject 1.25 g intravenously every twelve hours, then inject 250 mL intravenously every week vancomycin (VANCOCIN) 1.25 gram/250 mL in dextrose 5% Inject 250 mL intravenously every 12 hours. Vancomycin 1.25gm IV every 12 hours Infuse over 3 hours via Control a [facility] to mix as minibag in 250mL D5W as directed by physician due to pt discomfort during infusion. Tentative stop date: 06/26/22 Weekly labs: CBC/Diff, Creatinine, Vanco trough every Thursday [id number] mL 0 05/23/2022 06/26/2022 Active Start: 05-21-2022 End: 05-23-2022 vancomycin (VANCOCIN) 1.25 gram/250 mL in dextrose 5% [The details of the medication are not available because there are pending changes by a home health clinician.] 0 05/21/2022 05/23/2022 Discontinued (Other) Start: 05-21-2022 inject 1.25 g intrav enously every twelve hours, then inject 1.25 g intravenously every twelve hours vancomycin (VANCOCIN) 1.25 gram/250 mL in dextrose 5% Inject 1.25 g intravenously every 12 hours. Vancomycin 1.25gm IV every 12 hours Infuse over 90 minutes via Control a [facility] to mix as minibag in 250mL D5W 0 05/21/2022 Active Comment on above: Inject 1.25 g intrav enously every 12 hours. Vancomycin 1.25gm IV every 12 hours Infuse over 90 minutes via Control a [facility] to mix as minibag in 250mL D5W Inject 250 mL intrav enously every 12 hours. Vancomycin 1.25gm IV every 12 hours Infuse over 3 hours via Control a [facility] to mix as minibag in 250mL D5W as directed by physician due to pt discomfort during infusion. Tentative stop date: 06/26/22 Weekly labs: CBC/Diff, Creatinine, Vanco trough every Thursday [The details of the medication are not available because there are pending changes by a home health clinician.] Completed/Discontinued Medications Medication Drug Class(es) Dates Sig (Normalized) Sig (Original) acetaminophen 325 mg / HYDROcodone bitartrate 5 mg oral tablet (20 sources) Opioid Agonist HYDROcodone-Acet a minophen 5-325 MG Oral Tablet 1 prior to pt (5-325 MG) Inactive [id number] actuat albuterol 0.09 mg/actuat metered dose inhaler (20 sources) beta2-Adrenergic Agonist Start: 09-10-2022 take 2 puff(s) by inhalation every six hours as needed ProAir HFA 90 mcg/actuation inhalation HFA Aerosol with Adapter 2 (two) Puff q6 hr prn for 90 days Quantity: 3 {Unspecified} Refills: 3 Ordered: 10-Sep-2022 Deanna Aponte DO, DO, Kathleen Start : 10-Sep-2022 Active Comments: Mail order. dispense 3boxes Start: 05-29-2022 take 1 puff(s) by in halation every four hours as needed for wheezing albuterol sulfate (PROAIR HFA INHALATION) Inhale 1 Puff as instructed every 4 hours as needed (wheezing sob). 05/29/2022 Active Start: 05-29-2022 take 1 puff(s) by in halation every four hours as needed for wheezing albuterol sulfate (PROAIR HFA INHALATION) Inhale 1 Puff as instructed every 4 hours as needed (wheezing sob). 0 05/29/2022 Active Start: 05-29-2022 albuterol sulf ate (PROAIR HFA INHALATION) [The details of the medication are not available because there are pending changes by a home health clinician.] 0 05/29/2022 Active Start: 10-26-2017 take 2 puff(s) by in halation every six hours as needed ProAir HFA 108 (90 Base) MCG/ACT Inhalation Aerosol Solution 2 (two) Puff q6 hr prn for 90 days Quantity: 3 {Box} Refills: 3 Ordered: 26-Oct-2017 Deanna Aponte DO, DO, Kathleen Start : 26-Oct-2017 Active Comments: Mail order. Start: 10-26-2017 take 2 puff(s) by in halation every six hours as needed ProAir HFA 108 (90 Base) MCG/ACT Inhalation Aerosol Solution 2 (two) Puff q6 hr prn for 90 days Quantity: 3 {Box} Refills: 3 Ordered: 26-Oct-2017 Deanna Aponte DO, DO, Kathleen Start : 26-Oct-2017 Active Comments: Mail order. albuterol sulfat e (PROAIR HFA INHALATION) Inhale 1 Puff as instructed as needed. 0 Suspended albuterol sulfat e (PROAIR HFA INHALATION) Inhale 1 Puff as instructed as needed. 0 Active Comment on above: Mail order. Inhale 1 Puff as ins tructed as needed. [The details of the medication are not available because there are pending changes by a home health clinician.] Mail order. dispense 3boxes Inhale 1 Puff as ins tructed every 4 hours as needed (wheezing sob). amoxicillin 875 mg / clavulanate 125 mg oral tablet (18 sources) Penicillin-class Antibacterial Start: 09-12-19 End: 09-22-19 take 1 tablet by mouth twice daily amoxicillin-pot clavulanate 875-125 mg oral tablet 1 (one) tablet bid for 10 days Quantity: 20 {Tablet} Refills: 0 Ordered: 12-Sep-2022 Janie Renner CMA Start : 12-Sep-2022 End : 22-Sep-2022 Inactive budesonide 0.5 mg/ml inhalation suspension (20 sources) Corticosteroid Start: 09-10-19 End: 10-11-19 23 take 1 mL by inhalation twice daily Pulmicort 1 mg/2 mL inhalation Ampul For Nebulization 1 (one) mL bid for 30 days Quantity: 60 {Milliliter} Refills: 0 Ordered: 10-Sep-2022 Isha Zapata MA Start : 10-Sep-2022 End : 10-Oct-2022 Inactive Comments: may substitute one for nebulizer if less expensive on her ins plan Comment on above: may substitute one f or nebulizer if less expensive on her ins plan calcium acetate 1000 mg oral tablet (20 sources) take 1 tablet by mouth once daily Calcium Acetate 1000 MG Oral Tablet 1 qd (1000 MG) Active 1 ml denosumab 60 mg/ml prefilled syringe (20 sources) RANK Ligand Inhibitor Start: 05-07-20 End: 09-10-19 Prolia 60 mg/mL subcutaneous syringe 1 (one) Milliliter [id number] for 0 days Quantity: 1 {Milliliter} Refills: 1 Ordered: 10-Sep-2022 Sandie Dhiraj OMER Start : 07-May-2022 End : 10-Sep-2022 Inactive docusate sodium 100 mg oral capsule (20 sources) Start: 12-04-19 End: 01-03-20 24 take 1 capsule by mouth every twelve hours as needed docusate sodium (COLACE) 100 mg capsule Take 1 capsule by mouth two times a day as needed for constipation. 60 capsule 12/04/2023 01/03/2024 take 1 capsule by mouth twice da tito Colace 100 MG Oral Capsule 1 bid (100 MG) Inactive doxycycline hyclate 100 mg oral capsule (20 sources) Tetracycline-class Drug Start: 03-03-2019 End: 04-18-2019 take 1 capsule by mouth twice daily Doxycycline Hyclate 100 MG Oral Capsule 1 (one) Capsule bid for 0 days Quantity: 20 {Capsule} Refills: 0 Ordered: 18-Apr-2019 Guadalupe Bender Start : 03-Mar-2019 End : 18-Apr-2019 Inactive estradiol 0.1 mg/ml vaginal cream (20 sources) Estrogen Start: 05-20-2021 End: 09-06-2024 Estradiol (Estrace) 0.01 % (0.1 mg/gram) cream Discontinued 0 VAGINAL .COMPLEX 42.5 2 September 02, 2023 12:17pm September 06, 2024 10:13am pea sized amount VAGINAL twice a week; Start: 05-20-2021 End: 09-02-2023 Estradiol (Estrace) 0.01 % ( 0.1 mg/gram) cream Active 0 VAGINAL .COMPLEX 42.5 September 02, 2023 11:17am pea sized amount VAGINAL twice a week; Start: 04-23-2020 End: 05-20-2021 Estradiol (Estrace) 0.01 % ( 0.1 mg/gram) cream Discontinued 0 VAGINAL .COMPLEX 42.5 2 April 23, 2020 12:00am May 20, 2021 8:56am pea sized amount VAGINAL every other day X 4 weeks then twice a week; Start: 04-23-2020 End: 05-20-2021 Estradiol (Estrace) 0.01 % ( 0.1 mg/gram) cream Discontinued 0 VAGINAL .COMPLEX 42.5 April 22, 2020 11:00pm May 20, 2021 7:56am pea sized amount VAGINAL every other day X 4 weeks then twice a week; Start: 02-03-2018 End: 04-24-2019 Estradiol (Estrace) 0.01 % ( 0.1 mg/gram) cream Discontinued 0 VAGINAL .COMPLEX 42.5 2 February 03, 2018 12:00am April 24, 2019 9:29am pea sized amount VAGINAL every other day X 4 weeks then twice a week; Start: 02-03-2018 End: 04-24-2019 Estradiol (Estrace) 0.01 % ( 0.1 mg/gram) cream Discontinued 0 VAGINAL .COMPLEX 42.5 February 02, 2018 11:00pm April 24, 2019 8:29am pea sized amount VAGINAL every other day X 4 weeks then twice a week; estradiol (ESTRA CE) 0.01 % (0.1 mg/gram) vaginal cream Use 1 g vaginally twice a week. Active Estradiol 0.1 MG /GM Vaginal Cream twice a week (0.1 MG/GM) Active Comment on above: Use 1 g vaginally tw ice a week. ibandronic acid 150 mg oral tablet (10 sources) Bisphosphonate Start: 3 End: 3 take 1 tablet by mouth every month Boniva 150 mg oral tablet 1 Tablet every month for 0 days Quantity: 3 {Tablet} Refills: 0 Ordered: 13-Apr-2023 Wilbur Metz LPN Start : 05-Nov-2022 End : 13-Apr-2023 Discontinued Comments: Mail order. Comment on above: Mail order. inositol 141 mg / niacin 500 mg oral capsule (5 sources) Nicotinic Acid Start: 8 End: 9 Niacin (Inositol Niacinate) 500 mg capsule Discontinued 1000 mg PO 0 February 03, 2018 12:00am April 19, 2019 10:51am Start: 02-03-2018 End: 04-19-2019 Niacin (Inositol Niacinate) Discontinued 1000 MG PO February 02, 2018 11:00pm April 19, 2019 9:51am 10 ml lidocaine hydrochloride 10 mg/ml injection (1 source) Antiarrhythmic, Amide Local Anesthetic Start: 05-01-2022 End: 05-01-2022 lidocaine (PF) 10 mg/mL (1 %) 3 mL injection (XYLOCAINE) lisinopril 10 mg oral tablet (20 sources) Angiotensin Converting Enzyme Inhibitor Start: 04-18-2019 End: 04-18-2019 take 1 tablet by mouth once daily Lisinopril 10 MG Oral Tablet 1 (one) Tablet daily for 90 days Quantity: 90 {Tablet} Refills: 1 Ordered: 18-Apr-2019 Deanna Aponte DO, DO, Kathleen Start : 18-Apr-2019 End : 18-Apr-2019 Discontinued Comments: Mail order. watch bp -- getting low with wt loss and symptomatic with dizzy Start: 08-20-2018 take 1 tablet by delroy th once daily Lisinopril 10 MG Oral Tablet 1 (one) Tablet Tablet daily for 90 days Quantity: 90 {Tablet} Refills: 1 Ordered: 20-Aug-2018 Deanna Aponte DO, DO, Kathleen Start : 20-Aug-2018 Active Start: 02-03-2018 End: 04-19-2019 take 1 tablet by mouth once daily Lisinopril 10 mg tablet Discontinued 10 mg PO daily February 03, 2018 12:00am April 19, 2019 10:51am Comment on above: Mail order. Mail order. watch bp -- getting low with wt loss and symptomatic with dizzy Take 1 tablet by delroy th once daily. niacin 500 mg oral tablet (20 sources) Nicotinic Acid take 1 tablet by mouth once daily Niacin 500 MG Oral Tablet 1 qd (500 MG) Inactive pravastatin sodium 80 mg oral tablet (20 sources) HMG-CoA Reductase Inhibitor Start: 9 End: 9 take 1 tablet by mouth once daily Pravastatin Sodium 80 MG Oral Tablet 1 (one) Tablet daily for 90 days Quantity: 90 {Tablet} Refills: 1 Ordered: 18-Nov-2018 Nereida Philip CMA Start : 15-Nov-2018 End : 18-Nov-2018 Discontinued Comments: Mail order. Start: 07-28-2018 take 1 tablet by delroy th once daily Pravastatin Sodium 80 MG Oral Tablet 1 (one) Tablet daily for 90 days Quantity: 90 {Tablet} Refills: 1 Ordered: 28-Jul-2018 Deanna Aponte DO, DO, Kathleen Start : 28-Jul-2018 Active Start: 01-25-2018 End: 04-19-2019 take 1 tablet by mouth once daily Pravastatin 40 mg tablet Discontinued 40 mg PO daily February 03, 2018 12:00am April 19, 2019 10:51am Comment on above: Mail order. predniSONE 20 mg oral tablet (20 sources) Start: 3 End: 3 take 2 tablets by mouth twice daily, then take 1 tablet by mouth twice daily, then take 1 tablet by mouth once daily predniSONE 20 mg oral tablet tad tablet uad for 22 days Quantity: 34 {Tablet} Refills: 0 Ordered: 10-Sep-2022 Janie Renner CMA Start : 10-Sep-2022 End : 02-Oct-2022 Inactive Comments: 2tabs bid for 2days then 1tab bid for 6days then 1tab daily for 2weeks dispense quantity sufficent Comment on above: 2tabs bid for 2days then 1tab bid for 6days then 1tab daily for 2weeks dispense quantity sufficent Probiotic (17 sources) Probiotic Active risedronate sodium 30 mg oral tablet (20 sources) Start: 3 End: 3 take 1 tablet by mouth every month risedronate 30 mg oral tablet 1 (one) tablet qmonth for 0 days Quantity: 3 {Tablet} Refills: 3 Ordered: 05-Nov-2022 Kacy Lewsi LPN Start : 08-Oct-2022 End : 05-Nov-2022 Inactive Start: 08-13-2022 take 1 tablet by delroy th every month risedronate 30 mg oral tablet 1 (one) tablet qmonth for 0 days Quantity: 3 {Tablet} Refills: 3 Ordered: 14-Aug-2022 Fatmata ESCOBEDO, Deanna Aponte DO Deanna Start : 14-Aug-2022 Active Comment on above: Mail order. 125 ml sodium chloride 9 mg/ml prefilled syringe (20 sources) Start: 05-19-2022 sodium chloride 0.9 %, flush , (0.9% NACL) 3 mL syrg Inject 2-10 mL intravenously as directed. Flush before and after each dose with 10 mL. Flush unused lumens with 10 mL daily. Flush before blood draws with 10 mL and after blood draws with 20 mL. 0 05/19/2022 Active Start: 05-19-2022 sodium chlorid e (NaCl) 0.9% injection solution Inject 10-30 mL intravenously as directed. Flush PICC with 10cc before and after infusion, 10cc before blood work, 20cc after blood work and 30cc for sluggish line. 0 05/19/2022 Active Comment on above: Inject 2-10 mL intra venously as directed. Flush before and after each dose with 10 mL. Flush unused lumens with 10 mL daily. Flush before blood draws with 10 mL and after blood draws with 20 mL. Inject 10-30 mL intr avenously as directed. Flush PICC with 10cc before and after infusion, 10cc before blood work, 20cc after blood work and 30cc for sluggish line. triamcinolone acetonide 0.001 mg/mg oral paste (11 sources) Corticosteroid Start: 12-18-19 End: 11-12-19 triamcinolone (KENALOG IN ORABASE) 0.1 % paste APPLY A THIN COAT TO THE AFFECTED AREA 4-6 TIMES A DAY 12/17/2022 11/12/2023 Discontinued (Discontinued by Patient) Comment on above: APPLY A THIN COAT TO THE AFFECTED AREA 4-6 TIMES A DAY TURMERIC ROOT EXTRACT ORAL (20 sources) End: 12-29-19 take 1 capsule by mouth once daily TURMERIC ROOT EXTRACT ORAL Take 1 capsule by mouth once daily. 0 12/28/2022 Discontinued take 1 capsule by mouth once elif ly TURMERIC ROOT EXTRACT ORAL Take 1 capsule by mouth once daily. 0 Suspended take 1 capsule by mouth once elif ly TURMERIC ROOT EXTRACT ORAL Take 1 capsule by mouth once daily. 0 Active Comment on above: Take 1 capsule by mo [facility] once daily. Vancomycin (14 sources) Glycopeptide Antibacterial Start: 022 inject 1 g intravenously every twelve hours, then inject 1 g intravenously every twelve hours vancomycin HCl (VANCOMYCIN INTRAVENOUS) Inject 1 g intravenously every 12 hours. vancomycin to 1gm IV Q12H until 06/26/22 Infuse over 3 hours via [facility] to mix as minibag in 250mL D5W 0 06/10/2022 Active Start: 05-28-2022 take 750 mg intraven ously every twelve hours Vancomycin 750 mg solr injection [The details of the medication are not available because there are pending changes by a home health clinician.] 0 05/28/2022 Active Comment on above: Inject 750 mg intrav enously every 24 hours. Decrease vancomycin to 750mg IV Q24H until 06/26/22 New dose to start the morning of 05/28/22 Infuse over 3 hours via [facility] to mix as minibag in 250mL D5W [The details of the medication are not available because there are pending changes by a home health clinician.] Inject 1 g intraveno usly every 12 hours. vancomycin to 1gm IV Q12H until 06/26/22 Infuse over 3 hours via [facility] to mix as minibag in 250mL D5W vancomycin HCl in 5 % dextrose (VANCOMYCIN HCL IN DEXTROSE) 1 gram/250 mL soln (13 sources) Start: 05-21-2022 End: 05-23-2022 vancomycin HCl in 5 % dextrose (VANCOMYCIN HCL IN DEXTROSE) 1 gram/250 mL soln Inject 1.25 g intravenously every 12 hours. Infuse vanco 1.25g IV over 90 minutes via [id number] every 12 hours thru 06/26/22 [id number] mL 0 05/21/2022 05/23/2022 Discontinued (Other) Start: 05-21-2022 End: 06-27-2022 vancomycin HCl in 5 % dextro se (VANCOMYCIN HCL IN DEXTROSE) 1 gram/250 mL soln Inject 1.25 g intravenously every 12 hours. Infuse vanco 1.25g IV over 90 minutes via Mjhmttj-v-nom every 12 hours thru 06/26/22 [id number] mL 0 05/21/2022 06/27/2022 Active Start: 05-18-2022 End: 05-20-2022 take 1 g intravenously every twelve hours vancomycin HCl in 5 % dextrose (VANCOMYCIN HCL IN DEXTROSE) 1 gram/250 mL soln Inject 1 g intravenously q 12 HR. 0 05/18/2022 05/20/2022 Discontinued Start: 05-18-2022 take 1 g intravenous ly every twelve hours vancomycin HCl in 5 % dextrose (VANCOMYCIN HCL IN DEXTROSE) 1 gram/250 mL soln Inject 1 g intravenously q 12 HR. 0 05/18/2022 Active Comment on above: Inject 1 g intraveno usly q 12 HR. Inject 1.25 g intrav enously every 12 hours. Infuse vanco 1.25g IV over 90 minutes via [id number]-[id number] every 12 hours thru 06/26/22 Vancomycin HCl in Dextrose 1 gram/250 mL soln 1 g (1 source) Start: End: take 1 g intravenously every twelve hours Vancomycin HCl in Dextrose 1 gram/250 mL soln 1 g VIT [id number] LA-DHA ORAL (20 sources) Start: End: VIT [id number] A-DHA ORAL [The details of the medication are not available because there are pending changes by a home health clinician.] 0 05/29/2022 12/28/2022 Discontinued Start: 05-29-2022 VIT A-C-D3-E-O [id number]-DHA ORAL [The details of the medication are not available because there are pending changes by a home health clinician.] 0 05/29/2022 Active VIT K-J-N2-E-OME [id number]-8-[id number]-DHA ORAL Take by mouth. 0 Suspended VIT E-P-H5-E-OME CB-2-VFG-DHA ORAL Take by mouth. 0 Active Comment on above: Take by mouth. [The details of the medication are not available because there are pending changes by a home health clinician.] Vitamin D3 (17 sources) Vitamin D3 Activ e Womens Multi (1 source) take 1 capsule by mouth once daily Womens Multi Oral Capsule 1 qd Active Womens Multi Oral Capsule (20 sources) take 1 capsule by mouth once daily Womens Multi Oral Capsule 1 qd Active Problems Active Problems Problem Classification Problem Date Documented Da te Episodic/Chronic Adjustment disorders (20 sources) Adjustment disorder with depressed mood; Translations: [Grief finding] Resolved: 02-26-2022 07-15-2018 Chronic Asthma (20 sources) Mild intermittent asthma; Translations: [Asthma, mild intermittent (Renamed from Mild intermittent asthma)] Onset: 12-31-2018 07-15-2018 Chronic Comment on above: stable- will have to update spirom when covid over Bacterial infection; unspecified site (1 source) Other specified bacterial agents as the cause of diseases classified elsewhere; Translations: [Bacterial sinusitis] Onset: 08-05-2024 Episodic Conditions associated with dizziness or vertigo (20 sources) Dizzy spells; Translations: [Dizzy spells] 05-09-2019 Episodic Disorders of lipid metabolism (20 sources) Hyperlipidemia; Translations: [Hyperlipidemia] Onset: 12-31-2018 07-15-2018 Chronic Diverticulosis and diverticulitis (1 source) Diverticulosis of large intestine without perforation or abscess without bleeding; Translations: [Dvrtclos of lg int w/o perforation or abscess w/o bleeding] Onset: 06-10-2017 Chronic E Codes: Adverse effects of medical drugs (20 sources) Adverse reaction to drug; Translations: [Drug reaction, initial encounter] 10-08-2022 Episodic Comment on above: pcn Essential hypertension (20 sources) Benign hypertension; Translations: [Hypertension, benign] Onset: 12-31-2018 07-15-2018 Chronic Comment on above: had ekg with pre-op clearance had ekg with pre-op clearanceafter wt loss - no meds anymore and bp became normal - willl cont to follow ( 2018) Fever of unknown origin (20 sources) Fever; Translations: [Fever] Resolved: 07-23-2020 02-23-2020 Episodic Fluid and electrolyte disorders (20 sources) Hyperkalemia; Translations: [High potassium] Resolved: 04-13-2023 01-18-2020 Episodic Genitourinary symptoms and ill-defined conditions (20 sources) Microscopic hematuria; Translations: [Hematuria, microscopic] 02-13-2021 Episodic Comment on above: worked up thoroughly and followed urologist for long time and then dismissed bc benign Immunizations and screening for infectious disease (20 sources) Encounter for immunization; Translations: [Need for prophylactic vaccination and inoculation against influenza] 12-03-2018 Episodic Lymphadenitis (20 sources) Lymphadenopathy; Translations: [Lymph node enlargement] Resolved: 10-08-2022 10-23-2020 Episodic Comment on above: left resolving Menopausal disorders (8 sources) Atrophic vaginitis; Translations: [Postmenopausal atrophic vaginitis] Onset: 09-27-2024 04-23-2020 Chronic Comment on above: estradiol cream Nephritis; nephrosis; renal sclerosis (20 sources) Recurrent and persistent hematuria with unspecified morphologic changes; Translations: [Benign hematuria] 07-15-2018 Chronic Comment on above: saw urology yrs ago and work up and cystocopy -- all-benign so told its just her Nephritis; nephrosis; renal sclerosis (20 sources) Benign hematuria; Translations: [Benign hematuria] 01-17-2019 Episodic Comment on above: saw urology yrs ago and work up and cystocopy -- all-benign so told its just her Nonspecific chest pain (2 sources) Other chest pain; Translations: [Other chest pain] Onset: 05-23-2025 Episodic Nutritional deficiencies (20 sources) Vitamin D deficiency; Translations: [Vitamin D deficiency] 07-15-2018 Chronic Osteoarthritis (20 sources) Osteoarthritis of knee; Translations: [Primary osteoarthritis of knee, unspecified laterality] Onset: 05-24-2018 Resolved: 02-17-2019 07-15-2018 Chronic Comment on above: handicap placard giv enboth knees -- going to do TKR - starting in October 2018 one at a time both knees -- going to do TKR - starting in december 2018 one at a time Osteoporosis (20 sources) Disuse osteoporosis; 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, disuse] 04-17-2022 Chronic Other aftercare (3 sources) Patient encounter status; Translations: [Aftercare following joint replacement surgery] 06-22-2024 Chronic Other aftercare (1 source) Aftercare following joint replacement surgery; Translations: [Aftercare following right knee joint replacement surgery] Onset: 11-23-2024 Chronic Other connective tissue disease (20 sources) History of total knee arthroplasty; Translations: [Presence of right artificial knee joint] Onset: 02-09-2019 Chronic Other connective tissue disease (20 sources) History of revision of right total knee arthroplasty; Translations: [Presence of right artificial knee joint] Onset: 12-04-2023 Chronic Other connective tissue disease (3 sources) Presence of right artificial knee joint; Translations: [Aftercare following right knee joint replacement surgery] Onset: 02-17-2019 Chronic Other connective tissue disease (1 source) Presence of unspecified artificial knee joint; Translations: [Mechanical loosening of prosthetic knee, subsequent encounter] Onset: 12-03-2023 Chronic Other ear and sense organ disorders (20 sources) Impacted cerumen; Translations: [Cerumen impaction] Resolved: 02-26-2022 10-23-2020 Episodic Comment on above: left ear, (worse sin ce taking singulair) left posterior cervical Other gastrointestinal disorders (20 sources) Diarrhea; Translations: [Diarrhea] Resolved: 07-23-2020 02-23-2020 Episodic Other lower respiratory disease (20 sources) Cough; Translations: [Cough] Resolved: 10-08-2022 09-10-2022 Episodic Other lower respiratory disease (20 sources) Cough; Translations: [Post-COVID chronic cough] Resolved: 10-08-2022 09-10-2022 Episodic Other nervous system disorders (1 source) Other chronic pain; Translations: [Chronic pain of right knee] Onset: 12-18-2023 Chronic Other non-traumatic joint disorders (1 source) Osteophyte of right knee; Translations: [Osteophyte, right knee] 03-09-2023 Episodic Other non-traumatic joint disorders (1 source) Effusion of right knee joint; Translations: [Effusion, right knee] 09-04-2023 Episodic Other nutritional; endocrine; and metabolic disorders (20 sources) Body mass index 30+ - obesity; Translations: [BMI 30.0-30.9,adult] Resolved: 07-23-2020 07-15-2018 Chronic Other nutritional; endocrine; and metabolic disorders (20 sources) Body mass index 25-29 - overweight; Translations: [BMI 28.0-28.9,adult] Resolved: 04-18-2019 01-17-2019 Chronic Other nutritional; endocrine; and metabolic disorders (20 sources) Body mass index 25-29 - overweight; Translations: [BMI 26.0-26.9,adult] Resolved: 04-18-2019 10-23-2020 Episodic Other nutritional; endocrine; and metabolic disorders (20 sources) Overweight in adulthood with body mass index of 25 or more but less than 30; Translations: [BMI 26.0-26.9,adult] Resolved: 04-18-2019 02-26-2022 Episodic Other skin disorders (20 sources) Eruption; Translations: [Rash] Resolved: 04-13-2023 10-08-2022 Episodic Other upper respiratory infections (20 sources) Bacterial sinusitis; Translations: [Sinusitis, bacterial] Onset: 08-05-2024 Resolved: 07-18-2019 03-03-2019 Chronic Other upper respiratory infections (20 sources) Acute upper respiratory infection; Translations: [URI, acute] 07-15-2018 Episodic Pneumonia (except that caused by tuberculosis or sexually transmitted disease) (20 sources) Severe acute respiratory syndrome; Translations: [SARS (severe acute respiratory syndrome)] Resolved: 10-08-2022 09-10-2022 Episodic Residual codes; unclassified (20 sources) Requires varicella vaccination; Translations: [Need for shingles vaccine] 01-17-2019 Episodic Residual codes; unclassified (20 sources) Postmenopausal state; Translations: [Postmenopausal (Renamed from Postmenopausal status)] 03-03-2019 Episodic Comment on above: last dexa 2018 last dexa dmits to taking ca++ and D- needs to improve wt bearing frequncy Residual codes; unclassified (20 sources) Intolerant of cold; Translations: [Cold intolerance] Resolved: 04-13-2023 05-09-2019 Episodic Residual codes; unclassified (20 sources) Needs influenza immunization; Translations: [Need for prophylactic vaccination and inoculation against influenza (Renamed from Need for immunization against influenza)] 05-09-2019 Episodic Residual codes; unclassified (5 sources) Vaccination required; Translations: [Need for shingles vaccine] 03-03-2019 Episodic Residual codes; unclassified (20 sources) Non-smoker; Translations: [Non-smoker] 10-23-2020 Episodic Residual codes; unclassified (5 sources) Family history of cancer of colon; Translations: [Family history of malignant neoplasm of digestive organs] 04-19-2019 Episodic Residual codes; unclassified (10 sources) Influenza vaccination declined; Translations: [Influenza vaccination declined (Renamed from Refused influenza vaccine)] 04-13-2023 Episodic Residual codes; unclassified (1 source) Altered mental status, unspecified; Translations: [Altered mental status, unspecified] Onset: 05-22-2025 Episodic Thyroid disorders (20 sources) Hypothyroidism; Translations: [Adult hypothyroidism] Onset: 12-31-2018 07-15-2018 Chronic Unclassified (20 sources) Encounter for screening for malignant neoplasm of colon; Translations: [Patient encounter status] Onset: 06-10-2017 10-23-2020 Episodic Comment on above: mother had colon can cer so she gets scoped every 3yr- up to date 05/15 repeat 3yr sees Shruti kyle nd of month-- mamm 05/15 last 09/06/24 Unclassified (1 source) Unknown / UNK(Unknown) Onset: 02-10-2017 Unclassified (20 sources) Hypertension, benign Unclassified (20 sources) Adult hypothyroidism Unclassified (20 sources) Non-smoker; Translations: [Non-smoker] 07-15-2018 Unclassified (20 sources) BMI 30.0-30.9,adult Unclassified (20 sources) Unclassified (20 sources) BMI 29.0-29.9,adult Unclassified (20 sources) Primary osteoarthritis of knee, unspecified laterality Unclassified (20 sources) BMI 28.0-28.9,adult Unclassified (20 sources) BMI 26.0-26.9,adult Unclassified (10 sources) Hematuria, microscopic Unclassified (1 source) PT Eval Onset: 12-18-2023 Past or Other Problems Problem Classification Problem Date Documented Date Episodic/Chronic Asthma (20 sources) Asthma Complication of device; implant or graft (20 sources) Pain due to internal prosthetic device; Translations: [Pain due to internal orthopedic prosthetic devices, implants and grafts, initial encounter] Onset: 05-15-2022 Resolved: 12-04-2023 Episodic Comment on above: TKR taken out - IV a ntibiotics with Vanc and pic line -- she is fine with temp ; knee and ortho said thats fine -- can replace typically in 7-8 yrs as long as no problem Conditions associated with dizziness or vertigo (20 sources) Conditions associated with dizziness or vertigo Coronary atherosclerosis and other heart disease (20 sources) Coronary atherosclerosis and other heart disease Hemorrhoids (2 sources) Residual hemorrhoidal skin tags; Translations: [First degree hemorrhoids] Onset: 06-10-2017 Episodic Nonmalignant breast conditions (4 sources) Mastodynia; Translations: [Pain of left breast] Onset: 02-22-2025 02-22-2025 Episodic Comment on above: [place] Other and unspecified benign neoplasm (1 source) Benign neoplasm of transverse colon; Translations: [Benign neoplasm of transverse colon] Onset: 06-10-2017 Episodic Other connective tissue disease (20 sources) Muscle weakness; Translations: [Muscle weakness (generalized)] Onset: 12-18-2023 12-18-2023 Episodic Other connective tissue disease (1 source) Muscle weakness (generalized); Translations: [Muscle weakness (generalized)] Onset: 12-18-2023 Episodic Other non-traumatic joint disorders (20 sources) Pain in right knee; Translations: [Pain in joint, lower leg] Onset: 12-18-2023 Episodic Residual codes; unclassified (20 sources) Increased body mass index; Translations: [BMI 29.0-29.9,adult] Resolved: 01-17-2019 07-15-2018 Episodic Residual codes; unclassified (11 sources) Localized edema; Translations: [Localized edema] Onset: 01-08-2024 01-08-2024 Episodic Unclassified (2 sources) Family history of malignant neoplasm of digestive organs; Translations: [Family history of malignant neoplasm of digestive organs] Onset: 06-10-2017 Episodic Unclassified (1 source) Screening Onset: 02-10-2017 Unclassified (20 sources) URI, acute Unclassified (20 sources) Pregnancies (); Translations: [Pregnancies ()] 07-15-2018 Comment on above: 4. Unclassified (20 sources) Grieving Unclassified (20 sources) L wrist fracture Jul 2018 Resolved: 02-26-2022 01-17-2019 Unclassified (20 sources) Need for shingles vaccine Unclassified (20 sources) Sinusitis, bacterial Unclassified (20 sources) Patient encounter status; Translations: [Colon cancer screening (Renamed from Encounter for screening for malignant neoplasm of colon)] 03-03-2019 Comment on above: mother had colon can cer so she gets scoped every 3yr- due fall 2019 sees Shruti Alexander e nd of mother had colon can cer so she gets scoped every 3yr- up to date 05/15 repeat 3yr sees Shruti Alexander e nd of month-- mamm 05/15 Unclassified (20 sources) BMI 27.0-27.9,adult Unclassified (20 sources) Encounter for annual general medical examination with abnormal findings in adult Unclassified (20 sources) Encounter for screening mammogram for breast cancer (Renamed from Encounter for screening mammogram for malignant neoplasm of breast) Unclassified (20 sources) Postmenopausal (Renamed from Postmenopausal status) Unclassified (20 sources) Need for zoster vaccination (Renamed from Need for shingles vaccine) Unclassified (20 sources) Cold intolerance Unclassified (20 sources) Dizzy spells Unclassified (20 sources) High potassium Unclassified (17 sources) Encounter for hepatitis C virus screening test for high risk patient Unclassified (12 sources) Lymph node enlargement Unclassified (12 sources) Cerumen impaction Unclassified (11 sources) Benign hematuria Viral infection (20 sources) Disease caused by 2019-nCoV Results Test Name Value Interpretation Reference Range Facility CBC W/Diff, Automatedon 10- Absolute Lymph 2.82 X10 3/uL Normal 0.83-4.51 [facility] Comment on above: Performed By: #### L 500.4050, L100.0100 #### [facility] [address] [place], [address] Absolute Neut 4.7 X10 3/uL Normal 2.0-7.7 [facility] Comment on above: Performed By: #### L 500.4050, L100.0100 #### [facility] [address] [place], [address] Basophils/100 WBC (Bld) 0.7 % Normal 0-1 [facility] Comment on above: Performed By: #### L 500.4050, L100.0100 #### [facility] [address] [place], [address] Eosinophils/100 WBC (Bld) 1.7 % Normal 0-5 [facility] Comment on above: Performed By: #### L 500.4050, L100.0100 #### [facility] [address] [place], [address] Erythrocyte distribution width (RBC) [Ratio] 12.2 % Normal 11.6-14.6 [facility] Comment on above: Performed By: #### L 500.4050, L100.0100 #### [facility] [address] [place], [address] Hematocrit (Bld) [Volume fraction] 42.4 % Normal 37-47 [facility] Comment on above: Performed By: #### L 500.4050, L100.0100 #### [facility] [address] [place], [address] Hemoglobin (Bld) [Mass/Vol] 13.9 g/dL Normal 12.0-15.0 [facility] Comment on above: Performed By: #### L 500.4050, L100.0100 #### [facility] [address] [place], [address] IG% 0.200 Normal 0.0-0.9 [facility] Comment on above: Result Comment: IG% - Immature Granulocytes (promyelocytes, myelocytes and metamyelocytes) > 1% indicates that a LEFT SHIFT is Present. Performed By: #### L 500.4050, L100.0100 #### [facility] [address] [place], [address] Lymphocytes/100 WBC (Bld) 33.3 % Normal 19-41 [facility] Comment on above: Performed By: #### L 500.4050, L100.0100 #### [facility] [address] [place], [address] MCH (RBC) [Entitic mass] 29.9 pg Normal 27.0-32.0 [facility] Comment on above: Performed By: #### L 500.4050, L100.0100 #### [facility] [address] [place], [address] MCHC (RBC) [Mass/Vol] 32.8 g/dL Normal 32-36 [facility] Comment on above: Performed By: #### L 500.4050, L100.0100 #### [facility] [address] [place], [address] MCV (RBC) [Entitic vol] 91.2 fL Normal 81-99 [facility] Comment on above: Performed By: #### L 500.4050, L100.0100 #### [facility] [address] [place], [address] Monocytes/100 WBC (Bld) 8.9 % Normal 0-10 [facility] Comment on above: Performed By: #### L 500.4050, L100.0100 #### [facility] [address] [place], [address] Neutrophils/100 WBC (Bld) 55.2 % Normal 47-70 [facility] Comment on above: Performed By: #### L 500.4050, L100.0100 #### [facility] [address] [place], [address] Nucleated RBC (Bld) [#/Vol] 0 10*3/uL Normal 0-5 [facility] Comment on above: Performed By: #### L 500.4050, L100.0100 #### [facility] [address] [place], [address] Platelet mean volume (Bld) [Entitic vol] 11.1 fL Normal 6.2-12.0 [facility] Comment on above: Performed By: #### L 500.4050, L100.0100 #### [facility] [address] [place], [address] Platelets (Bld) [#/Vol] 370 10*3/uL Normal 150-450 [facility] Comment on above: Performed By: #### L 500.4050, L100.0100 #### [facility] [address] [place], [address] RBC (Bld) [#/Vol] 4.65 10*6/uL Normal 4.2-5.4 [facility] Comment on above: Performed By: #### L 500.4050, L100.0100 #### [facility] [address] [place], [address] RDW SD 40.7 fl Normal 35.1-43.9 [facility] Comment on above: Performed By: #### L 500.4050, L100.0100 #### [facility] [address] [place], [address] WBC (Bld) [#/Vol] 8.5 10*3/uL Normal 4.4-11.0 [facility] Comment on above: Performed By: #### L 500.4050, L100.0100 #### [facility] [address] [place], [address] Comprehensive Metabolic Prof inon 05-11-2025 Albumin [Mass/Vol] 4.5 g/dL Normal 3.4-4.8 [facility] Comment on above: Performed By: #### L 500.4050, L100.0100 #### [facility] [address] [place], [address] Albumin/Globulin [Mass ratio] 1.6 {ratio} Normal 0.9-2.4 [facility] Comment on above: Performed By: #### L 500.4050, L100.0100 #### [facility] [address] [place], [address] ALK PHOS 103 U/L Normal 35-104 [facility] Comment on above: Performed By: #### L 500.4050, L100.0100 #### [facility] [address] [place], [address] ALT [Catalytic activity/Vol] 18 U/L Normal <=34 [facility] Comment on above: Performed By: #### L 500.4050, L100.0100 #### [facility] [address] [place], [address] AST [Catalytic activity/Vol] 27 U/L Normal <=31 [facility] Comment on above: Performed By: #### L 500.4050, L100.0100 #### [facility] [address] [place], [address] Bilirubin [Mass/Vol] 0.38 mg/dL Normal 0.00-1.30 [facility] Comment on above: Performed By: #### L 500.4050, L100.0100 #### [facility] [address] [place], [address] BUN/CRE 12.0 RATIO Normal 10-20 [facility] Comment on above: Performed By: #### L 500.4050, L100.0100 #### [facility] [address] [place], [address] Calcium [Mass/Vol] 10.6 mg/dL Normal 7.6-11.0 [facility] Comment on above: Performed By: #### L 500.4050, L100.0100 #### [facility] [address] [place], [address] Chloride [Moles/Vol] 104 mmol/L Normal 98-108 [facility] Comment on above: Performed By: #### L 500.4050, L100.0100 #### [facility] [address] [place], [address] CO2 [Moles/Vol] 26.5 mmol/L Normal 21.0-32.0 [facility] Comment on above: Performed By: #### L 500.4050, L100.0100 #### [facility] [address] [place], [address] Creatinine [Mass/Vol] 0.74 mg/dL Normal 0.70-1.20 [facility] Comment on above: Performed By: #### L 500.4050, L100.0100 #### [facility] [address] [place], [address] GAP 13 Normal 5-15 [facility] Comment on above: Performed By: #### L 500.4050, L100.0100 #### [facility] [address] [place], [address] GFR/1.73 sq M.predicted among non-blacks MDRD (S/P/Bld) [Vol rate/Area] 87 mL/min/{1.73_m2} Normal >60 [facility] Comment on above: Result Comment: mL/m in/1.73m2 CKD-EPI Creatinine Equation (2020) Performed By: #### L 500.4050, L100.0100 #### [facility] [address] [place], [address] Globulin (S) [Mass/Vol] 2.8 g/dL Normal 2.2-4.2 [facility] Comment on above: Performed By: #### L 500.4050, L100.0100 #### [facility] [address] [place], [address] Glucose [Mass/Vol] 104 mg/dL High 70-99 [facility] Comment on above: Performed By: #### L 500.4050, L100.0100 #### [facility] [address] [place], [address] Potassium [Moles/Vol] 3.9 mmol/L Normal 3.3-5.1 [facility] Comment on above: Performed By: #### L 500.4050, L100.0100 #### [facility] [address] [place], [address] Sodium [Moles/Vol] 143 mmol/L Normal 133-145 [facility] Comment on above: Performed By: #### L 500.4050, L100.0100 #### [facility] [address] [place], [address] T PROT 7.3 g/dL Normal 5.9-8.4 [facility] Comment on above: Performed By: #### L 500.4050, L100.0100 #### [facility] [address] [place], [address] Urea nitrogen [Mass/Vol] 9 mg/dL Normal 4-19 [facility] Comment on above: Performed By: #### L 500.4050, L100.0100 #### [facility] [address] [place], [address] Breast Limited Unilateralon 03-06-[address] [facility] [address] [place] [address] Breast Limited Unilateral MR#: [id number] Acct: [id number] Name: MARIAJOSE MARCELINO Rep #: [id number] : 1955 F 69 From: Agueda Lee PCP: Dr. Deanna Aponte, DO Status: REG CLI Study: Breast Limited Unilateral Date of Exam: Exam# [id number] Ordering Dr: Shruti De La Cruz [employer] -C PROCEDURE: BREAST LIMITED UNILATERAL 03/06/2025 REASON FOR EXAM: F, Age 69 y/o , LEFT BREAST PAIN COMPARISON: Mammogram studies dated 03/06/2025, 09/06/2024, and 09/02/2023.. TECHNIQUE: BREAST LIMITED UNILATERAL FINDINGS: There is no ultrasound abnormality identified in the lower outer quadrant of the left breast to correlate to the breast pain. This area appears to represent normal breast tissue. No suspicious solid or cystic masses are seen. The skin is not abnormally thickened. US/Breast Limited Unilateral IMPRESSION: Unremarkable left breast ultrasound exam. The patient should return in 1 year for routine yearly screening mammography. BI-RADS 1: NEGATIVE RECOMMENDATION: Routine annual follow-up in 1 Year Reading Location: [id number] CC: KVNG De La Cruz; Dr. Deanna Aponte DO Milieu Coordinator: Signed Normal [facility] Breast imaging reportOrdered By: Agueda Madera on 03-06-[address] [facility] [address] [place] [address] DIAG MAMM W/CAD, BILAT MR#: [id number] Acct: [id number] Name: MARIAJOSE MARCELINO Rep #: [id number] : 1955 F 69 From: Justice Madera DO PCP: Dr. Deanna Aponte DO Status: RE G CLI Study:DIAG MAMM W/CAD, BILAT Date of Exam: 03/06/25 Exam# [id number] Ordering Dr: Shruti De La Cruz NP [employer]-C EXAM: DIAG MAMM W/CAD, BILAT 03/06/2025 CLINICAL HISTORY: F, Age 69 y/o , DIAGNOSTIC BEFORE US CAN BE SCHEDULED. Left breast pain. Pain lower outer quadrant left breast. TECHNIQUE: DIAG MAMM W/CAD, BILAT. COMPARISON: Prior exam(s) dated 09/06/2024 and 09/02/2023. FINDINGS: TISSUE DENSITY: There are scattered areas of fibroglandular density. Bilateral Breast Mammographic Findings: There is no mammographic abnormality identified in the lower outer quadrant of the left breast to correlate to her pain. Further workup with ultrasound will be performed. Benign-appearing secretory type calcifications and round calcifications are seen in the left breast. Benign-appearing secretory type calcifications, vascular calcifications and round calcifications are seen in the right breast. No suspicious masses or suspicious calcifications are seen in either breast. BI/DIAG MAMM W/CAD, BILAT IMPRESSION: There is no mammographic abnormality in the left breast to correlate to the breast pain. Further workup with ultrasound will be performed for further evaluation. OVERALL FINAL ASSESSMENT BI-RADS 0: INCOMPLETE - NEED ADDITIONAL IMAGING EVALUATION. RECOMMENDATION: Ultrasound Recommended A letter with findings and recommendations will be mailed to the patient. Reading Location: [id number] CC: KVNG De La Cruz; Dr. Deanna Aponte DO ~ Milieu Coordinator: Signed [facility] DIAG MAMM W/CAD, BILATon DIAG MAMM W/CAD, BILAT [facility] Services [address] [place] [id number] DIAG MAMM W/CAD, BILAT MR#: [id number] Acct: [id number] Name: MARIAJOSE MARCELINO Rep #: [id number] : 1955 F 69 From: Agueda Lee PCP: Dr. Deanna Aponte DO Status: REG CLI Study: DIAG MAMM W/CAD, BILAT Date of Exam: 03/06/25 Exam# [id number] Ordering Dr: Shruti De La Cruz NP [employer] EXAM: DIAG MAMM W/CAD, BILAT 03/06/2025 CLINICAL HISTORY: F, Age 69 y/o , DIAGNOSTIC BEFORE US CAN BE SCHEDULED. Left breast pain. Pain lower outer quadrant left breast. TECHNIQUE: DIAG MAMM W/CAD, BILAT. COMPARISON: Prior exam(s) dated 09/06/2024 and 09/02/2023. FINDINGS: TISSUE DENSITY: There are scattered areas of fibroglandular density. Bilateral Breast Mammographic Findings: There is no mammographic abnormality identified in the lower outer quadrant of the left breast to correlate to her pain. Further workup with ultrasound will be performed. Benign-appearing secretory type calcifications and round calcifications are seen in the left breast. Benign-appearing secretory type calcifications, vascular calcifications and round calcifications are seen in the right breast. No suspicious masses or suspicious calcifications are seen in either breast. BI/DIAG MAMM W/CAD, BILAT IMPRESSION: There is no mammographic abnormality in the left breast to correlate to the breast pain. Further workup with ultrasound will be performed for further evaluation. OVERALL FINAL ASSESSMENT BI-RADS 0: INCOMPLETE - NEED ADDITIONAL IMAGING EVALUATION. RECOMMENDATION: Ultrasound Recommended A letter with findings and recommendations will be mailed to the patient. Reading Location: [id number] CC: KVNG De La Cruz; Dr. Deanna Aponte DO Milieu Coordinator: Signed Normal [facility] Process Engineering Technician Office Visit Reporton 02-22-2025 Process Engineering Technician Office Visit Report [facility] [address], [address] [place] [address] OFFICE VISIT Date of Service: 02/22/25 MR#: [id number] Acct: [id number] Name: MARIAJOSE MARCELINO Rep #: [id number] : 1955 Provider: KVNG rivas Age/Sex: 69/F [place] [facility] [place]: Signed Intake Vital Signs 09/06/24 08:55 02/22/25 11:34 02/22/25 11:39 Height 5 ft 5 ft 5 ft Weight: 147 lb 4 oz BMI 28.8 BP 138/78 H Intake Visit Reasons: Pain left breast/axilla Chief Complaint: Pain left breast Hog Ringer Required: No Is patient in pain?: No Allergies amoxicillin (From Amoxil) Allergy (Intermediate, Verified 02/22/25 11:33) Itching cefaclor (From Ceclor) Allergy (Intermediate, Verified 02/22/25 11:33) Rash Latex, Natural Rubber Adverse Reaction (Mild, Verified 02/22/25 11:33) rash Medications ???Medication ???Instructions ???Recorded ???Confirmed ???Type levothyroxine 50 mcg tablet 50 mcg PO QDAY 02/03/18 02/22/25 H istory (Synthroid) montelukast 10 mg tablet 10 mg PO QPM 02/03/18 02/22/25 His tory multivitamin 1 tab PO QDAY 02/03/18 02/22/25 Hi story cholecalciferol (vitamin D3) 25 1,000 unit PO DAILY 04/24/1902/22 History mcg (1,000 unit) capsule calcium carbonate (Calcium 500) 500 mg PO DAILY 04/23/20 02/22/25 History lactobacillus combination no.8 3 3,000 mmu cells PO DAILY 04/23/20 02/22/25 History billion cell capsule (Adult Probiotic) estradiol 0.01% (0.1 mg/gram) See Rx Instructions vaginal 02/22/25 Rx vaginal cream (Estrace) .COMPLEX #42.5 grams rosuvastatin 40 mg tablet 20 mg PO DAILY 02/22/25 02/22/25 H istory Is last menstrual period known: No Post menopausal: Yes Patient : No : No PFSH Medical History Thyroid disease Asthma Knee pain Hemorrhoids Fever Arthritis Surgical History Status post right knee replacement Gallbladder bile duct stone with obstruction History of partial hysterectomy H/O section Family History Mother Colon cancer Myocardial infarction Father Parkinson disease Social History Smoking Status: Never smoker alcohol intake: never substance use type: does not use diet: lactose free caffeine: Yes Type: coffee Number of servings: 2 and tea Number of servings: 3 what type of physical activity do you participate in: walking frequency: 1-2 times per week seatbelt use: always do you feel safe at home: Yes additional social history: recently 's name Brenda Pt. is retired HPI Pain left breast/axilla Details: MARIAJOSE MARCELINO is a 69 year old who presents for left breast pain x 2 months. Denies masses. Denies any trauma, change in activity History 4 Elective abortions Hx Para 4 Spontaneous abortions Hx # Term Pregnancies 4 Ectopic pregnancies Hx # Pregnancies Multiple births # of living children 4 Past Pregnancies Del. Date Name GA/Weeks Outcome Route Bth Weight Gen Labor Lgth Anesthesia Del Locatn Provider FOB Unknown Ann 1978 Unknown Skylar 1979 Unknown Aniyah 1982 Unknown Lorraine 1985 ROS Const Constitutional: Reports system reviewed and no additional complaints, except as documented : Reports system reviewed and no additional complaints, except as documented Skin Skin/Breast: Reports as per HPI Psych Psych: Reports system reviewed and no additional complaints, except as documented Exam Const General: cooperative and no acute distress Orientation: oriented x3 HENMT Head: normal to inspection Neck Neck: normal visual inspection Chest Breast inspection: normal inspection of the breasts and normal inspection of the axillae Breast palpation: normal palpation of the breasts, normal palpation of the axillae and other (tender deep palpation outer left breast @ axillary tail) Resp Effort Inspection: normal respiratory effort Coding Level of Care Code Off vis,est,level 3 Diagnoses Breast pain, left N64.4 Assessment and Plan Assessment and Plan (1) Breast pain, left: Status: Acute Comment: US Orders: Orders Breast Limited Unilateral Today N64.4 - Mastodynia Plan Normal mammogram and exam Aug 2024 Proceed with ultrasound left breast 02/22/25 1147 Date Shruti De La Cruz NP [employer]-C Cosigner Signature: Date (if applicable) CC: Normal [facility] CNOVon 11-23-2024 CNOV Office Visit (ORMDNA ) -- MARIAJOSE MARCELINO ([id number]) 1955 F Date Time Provider Department 11/23/24 10:45 AM YANIRA GARCIA During your visit today, we recorded the following information about you: Yanira Garcia MD 12/21/2024 10:[address] GARCIA- POST-OP KNEE ==== Post-Op F/U Office Visit ==== Mariajose Marcelino presents today for a 1 year status post revision Right TKA. Post-operative recovery was uneventful. Patient's rating of condition: improving Comments: patient reports improvement compared to her preoperative condition Does the Pt. still experience pain? PAIN EVALUATION 2024 1240 Pain Level: 0 Pain Location: Knee-Right Duration Amount of Time: 1 Duration Units: Years Frequency: Intermittent Functional difficulties: None Physical Therapy: Completed course of therapy Pain Medication: Non-narcotic Ambulating without assistance. Medications and Allergies reviewed and verified. ==== EXAM: ==== GEN: AANDO x3, NAD SKIN:Appropriate postop appearance Incision intact Incision well healed RightKnee: ROM: Flexion/Extension:0 degrees to 120 degrees Pain with ROM:No Mal-alignment: No Effusion: None Non Tender to palpation of the medial , lateral , and patellofemoral joint line(s). Stability:Anterior/Posteri or- Yes, stable and Varus/Valgus- Yes, stable Quad strength: normal HIP: range of motion no loss ROM NV: intact and Jeramy's negative ==== IMAGING: ==== Xrays: XR KNEE POST OP 3V AP/LAT/MERCHANT RIGHT Narrative: * * *Final Report* * * DATE OF EXAM: Nov 23 2024 10:36AM TYSON 5209 - XR KNEE 3V AP/LAT/MERCHANT RT / PROCEDURE REASON: multiple diagnoses * * * * Physician Interpretation * * * * EXAMINATION / TECHNIQUE: XR KNEE 3V AP/LAT/MERCHANT RT HISTORY: Follow-up for right knee replacement Aftercare following right knee joint replacement surgery Aftercare following right knee joint replacement surgery COMPARISON: 12/18/2023. FINDINGS: Status post right knee arthroplasty with orthopedic hardware in standard position and alignment. There is no periprosthetic lucency or fracture. Impression: IMPRESSION: Status post right arthroplasty without evidence of complication. Milieu Coordinator: PSCB Transcribe Date/Time: Nov 28 2024 8:05P Dictated by : NYDIA MIX MD This examination was interpreted and the report reviewed and electronically signed by: NYDIA MIX MD on Nov 28 2024 8:06PM EST == IMPRESSION/PLAN: == 69 year old female s/p revision Right TKA No complaints or limitations. At normal post-operative stage of recovery. Plan: 1. Continue independent range of motion/strengthening exercises 2. We reviewed total knee precautions including antibiotic prophylactic protocols for dental procedures 3. Follow-up 5 years for repeat clinical/radiographic evaluation or sooner should she develop any new orthopedic problems Yanira Garcia MD Electronic Signature Allergies As of Date: 11/23/2024 Noted Allergy Reaction AMOXICILLIN 12/12/2022 2 - Rash CECLOR (CEFACLOR) 02/03/2018 1 - Mental Status Change 2 - Rash LATEX, NATURAL RUBBER 04/19/2019 2 - Rash Date Reviewed: 11/23/2024 Reviewed by: Jacqui Barnett MA - Fully Assessed Reason for Visit: Follow Up [171] Knee Replacement [363] Visit Diagnosis:Status post total right knee replacement [Z96.651] Order(s):clindamycin (CLEOCIN) 300 mg capsuleTake two capsules by mouth one hour prior to dental appointment.Disp: 2 capsuleRfl: 3 Prescriptions as of 12/21/2024 - clindamycin (CLEOCIN) 300 mg capsule Take two capsules by mouth one hour prior to dental appointment. - calcium carbonate (OS-TAMMY 500) 500 mg calcium (1,250 mg) tablet Take 1 tablet by mouth once daily. - azithromycin (ZITHROMAX Z-WILLIAM) 250 mg tablet 2 tablets by mouth first day then 1 tablet the next 4 days - acetaminophen (TYLENOL) 500 mg tablet Take 2 tablets by mouth every 8 hours as needed for pain. - ascorbic acid, vitamin C, (VITAMIN C) 500 mg tablet Take 1 tablet by mouth two times a day with meals for 27 doses. - aspirin, enteric coated (ASPIRIN, ENTERIC COATED) 81 mg EC tablet Take 1 tablet by mouth two times a day for 28 days. - cholecalciferol, vitamin D3, (VITAMIN D3 ORAL) Take 1 capsule by mouth once daily. - Lactobacillus acidophilus (PROBIOTIC ORAL) Take 1 capsule by mouth once daily. - albuterol sulfate (PROAIR HFA INHALATION) Inhale 1 Puff as instructed every 4 hours as needed (wheezing sob). - rosuvastatin (CRESTOR) 40 mg tablet Take 40 mg by mouth once daily. - estradiol (ESTRACE) 0.01 % (0.1 mg/gram) vaginal cream Use 1 g vagin (more content not included)... Normal [facility] XR KNEE 3V AP/LAT/MERCHANT R Ton 11-23-2024 XR KNEE 3V AP/LAT/MERCHANT RT * * *Final Report* * * DATE OF EXAM: Nov 23 2024 10:36AM TYSON 5209 - XR KNEE 3V AP/LAT/MERCHANT RT / PROCEDURE REASON: multiple diagnoses * * * * Physician Interpretation * * * * EXAMINATION / TECHNIQUE: XR KNEE 3V AP/LAT/MERCHANT RT HISTORY: Follow-up for right knee replacement Aftercare following right knee joint replacement surgery Aftercare following right knee joint replacement surgery COMPARISON: 12/18/2023. FINDINGS: Status post right knee arthroplasty with orthopedic hardware in standard position and alignment. There is no periprosthetic lucency or fracture. IMPRESSION: Status post right arthroplasty without evidence of complication. Milieu Coordinator: JANAE Transcribe Date/Time: Nov 28 2024 8:05P Dictated by : NYDIA MIX MD This examination was interpreted and the report reviewed and electronically signed by: NYDIA MIX MD on Nov 28 2024 8:06PM EST [id number] Normal [facility] Process Engineering Technician Office Visit Reporton 09-06-2024 Process Engineering Technician Office Visit Report 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) Chief Complaint: Annual Hog Ringer Required: No Is patient in pain?: No Allergies amoxicillin (From Amoxil) Allergy (Intermediate, Verified 09/06/24 09:01) Itching cefaclor (From Ceclor) Allergy (Intermediate, Verified 09/06/24 08:51) Rash Latex, Natural Rubber Adverse Reaction (Mild, Verified 09/06/24 08:51) rash Medications ???Medication ???Instructions ???Recorded ???Confirmed ???Type levothyroxine 50 mcg tablet 50 mcg PO QDAY 02/03/18 09/06/24 H istory (Synthroid) montelukast 10 mg tablet 10 mg PO QPM 02/03/18 09/06/24 His tory multivitamin 1 tab PO QDAY 02/03/18 09/06/24 Hi story rosuvastatin 40 mg tablet 40 mg PO DAILY 04/19/19 09/06/24 H istory cholecalciferol (vitamin D3) 25 1,000 unit PO DAILY 04/24/1909/06 History mcg (1,000 unit) capsule calcium carbonate (Calcium 500) 500 mg PO DAILY 04/23/20 09/06/24 History lactobacillus combination no.8 3 3,000 mmu cells PO DAILY 04/23/20 09/06/24 History billion cell capsule (Adult Probiotic) estradiol 0.01% (0.1 mg/gram) See Rx Instructions vaginal 09/06/24 Rx vaginal cream (Estrace) .COMPLEX #42.5 grams Is last menstrual period known: No Post menopausal: Yes Patient : No : No Control Method: Hysterectomy PFSH Medical History Thyroid disease Asthma Knee pain Hemorrhoids Fever Arthritis Surgical History Status post right knee replacement Gallbladder bile duct stone with obstruction History of partial hysterectomy H/O section Family History Mother Colon cancer Myocardial infarction Father Parkinson disease Social History Smoking Status: Never smoker alcohol intake: never substance use type: does not use diet: lactose free caffeine: Yes Type: coffee Number of servings: 2 and tea Number of servings: 3 what type of physical activity do you participate in: walking frequency: 1-2 times per week seatbelt use: always do you feel safe at home: Yes additional social history: recently 's name Brenda Pt. is retired History 4 Elective abortions Hx Para 4 Spontaneous abortions Hx # Term Pregnancies 4 Ectopic pregnancies Hx # Pregnancies Multiple births # of living children 4 Past Pregnancies Del. Date Name GA/Weeks Outcome Route Bth Weight Gen Labor Lgth Anesthesia Del Locatn Provider FOB Unknown Ann 1978 Unknown Skylar 1979 Unknown Aniyah 1982 Unknown Lorraine 1984 HPI Encounter for routine gynecological examination Details: MARIAJOSE MARCELINO is a 68 year old who presents for annual exam. Denies concerns. Last PAP: no History of abnormal PAP: no Last mammogram: 08/2023 History of abnormal mammogram: no Colon cancer screenin Other preventative health care screenings: Fatmata Female Reproductive History Questions: metorrhagia: No and sexually active: No ROS Const Constitutional: Denies fatigue, weight gain or weight loss Cardio Card: Denies chest pain Resp Resp: Denies cough or dyspnea on exertion GI GI: Denies abdominal pain, bloating, change in stool character, constipation or vomiting : Reports as per HPI; Denies difficulty voiding, pelvic pain, urinary frequency, urinary incontinence, urinary urgency, vaginal discharge or vaginal pruritus Exam Const General: cooperative, healthy appearing, no acute distress and well developed Orientation: alert, oriented to person and oriented to place [facility] Head: normal to inspection Neck Neck: normal visual inspection Chest Breast inspection: normal inspection of the breasts and normal inspection of the axillae Breast palpation: normal palpation of the breasts, normal palpation of the axillae and no axillary lymphadenopathy Resp Effort Inspection: normal respiratory effort GI Palpation: soft, no masses and nontender Rectal Exam: deferred External Female Exam: normal external appearance and normal appearance of the urethra Urethra: normal appearance of the urethra and normal palpation Speculum Exam - Vagina: no (more content not included)... Normal [facility] SCRN MAMM (CAD)W/BENNY BILATo n 09-06-2024 SCRN MAMM (CAD)W/BENNY BILAT [facility] Imaging Services [address] [place] [id number] SCRN MAMM (CAD)W/BENNY BILAT MR#: [id number] Acct: [id number] Name: MARIAJOSE MARCELINO Rep #: [id number] : 1955 F 68 From: Dino murdock MD PCP: Dr. Deanna Aponte, Status: REG [facility] Study: SCRN MAMM (CAD)W/BENNY BILAT Date of Exam: 08/27 08/20 Exam# [id number] Ordering Dr: Shruti De La Cruz [employer] -C PROCEDURE: SCRN MAMM (CAD)W/BENNY BILAT REASON FOR EXAM: F, Age 68 y/o, routine annual mammogram. TECHNIQUE: Bilateral screening digital breast tomosynthesis with 2D and 3D images. Computer aided detection. COMPARISON: Prior exam(s) dating back to September 02, 2023. FINDINGS: The breasts are heterogeneously dense which may obscure small masses. Stable examination. No suspicious masses, areas of developing architectural distortion, or suspicious calcifications. BI/SCRN MAMM (CAD)W/BENNY BILAT IMPRESSION: BI-RADS 1: NEGATIVE. RECOMMEND ANNUAL MAMMOGRAPHIC SCREENING. Follow-up code: Routine Follow-up The patient will be notified of the results by letter. Reading Location: [facility]N CC: KVNG De La Cruz; Dr. Deanna Aponte DO Milieu Coordinator: Signed [facility] CNOVon 08-05-2024 CNOV [facility] -- MARIAJOSE MARCELINO ([id number]) 1955 F Date Time Provider Department 08/05/24 9:00 AM CASEY GARCIA [facility] During your visit today, we recorded the following information about you: Temperature Pulse Respiration Blood pressure 98.3 degrees 78/minute 18/minute 139/76 Weight Height 68.9 kg 1.524 m Casey Garcia MD 08/05/2024 9:30 AM Signed Mariajose Marcelino is a 68 year old female who presents with URI (Sinus drainage/congestion, productive cough, watery eyes, and sore throat x's 6 days) Sinusitis This is a new problem. The current episode started in the past 7 days. The problem has been gradually worsening since onset. There has been no fever. Associated symptoms include congestion, coughing, sinus pressure and a sore throat. Pertinent negatives include no chills, headaches, hoarse voice, neck pain or shortness of breath. Past treatments include nothing. PAST MEDICAL HISTORY Diagnosis Date Asthma due to seasonal allergies Hyperlipidemia Hypertension Hypothyroidism ACTIVE PROBLEM LIST Primary Osteoarthritis of Left Knee Essential Hypertension Acquired Hypothyroidism Other Hyperlipidemia Mild Intermittent Asthma Without Complication Status Post Total Right Knee Replacement S/P Revision of Total Knee, Right Chronic Pain of Right Knee Muscle Weakness (Generalized) Localized Edema Current Outpatient Medications Medication Sig Dispense Refill calcium carbonate (OS-TAMMY 500) 500 mg calcium (1,250 mg) tablet Take 1 tablet by mouth once daily. clindamycin (CLEOCIN) 300 mg capsule Take two capsules by mouth one hour prior to dental appointment. 2 capsule 3 cholecalciferol, vitamin D3, (VITAMIN D3 ORAL) Take 1 capsule by mouth once daily. Lactobacillus acidophilus (PROBIOTIC ORAL) Take 1 capsule by mouth once daily. albuterol sulfate (PROAIR HFA INHALATION) Inhale 1 Puff as instructed every 4 hours as needed (wheezing sob). rosuvastatin (CRESTOR) 40 mg tablet Take 40 mg by mouth once daily. estradiol (ESTRACE) 0.01 % (0.1 mg/gram) vaginal cream Use 1 g vaginally twice a week. levothyroxine (SYNTHROID) 50 mcg tablet Take 1 tablet by mouth daily before breakfast. montelukast (SINGULAIR) 10 mg tablet Take 1 tablet by mouth daily at bedtime. therapeutic multivitamin (THERA VITAMIN) tablet Take 1 tablet by mouth once daily. acetaminophen (TYLENOL) 500 mg tablet Take 2 tablets by mouth every 8 hours as needed for pain. 90 tablet 0 ascorbic acid, vitamin C, (VITAMIN C) 500 mg tablet Take 1 tablet by mouth two times a day with meals for 27 doses. 27 tablet 0 aspirin, enteric coated (ASPIRIN, ENTERIC COATED) 81 mg EC tablet Take 1 tablet by mouth two times a day for 28 days. 56 tablet 0 No current facility-administered medications for this visit. Social History Tobacco Use Smoking status: Never Smokeless tobacco: Never Substance Use Topics Alcohol use: No Drug use: No Alcohol Use: No Tobacco Use: Never No family history on file. Review of Systems Constitutional: Negative for chills, fever and malaise/fatigue. HENT: Positive for congestion, sinus pressure and sore throat. Negative for hoarse voice. PND, yellow ND Respiratory: Positive for cough and sputum production. Negative for shortness of breath and wheezing. Gastrointestinal: Negative for abdominal pain, diarrhea, nausea and vomiting. Musculoskeletal: Negative for neck pain. Neurological: Negative for headaches. BP 139/76 Pulse 78 Temp (Src) 98.3 (Oral) Resp 18 Ht 5' 0 (1.52m) Wt 152 lb (68.9kg) SpO2 97% BMI 29.69 kg/(m2). Physical Exam Vitals and nursing note reviewed. Constitutional: Appearance: Normal appearance. She is not ill-appearing. HENT: Right Ear: Tympanic membrane normal. Left Ear: Tympanic membrane normal. Nose: Congestion and rhinorrhea present. Mouth/Throat: Mouth: Mucous membranes are moist. Pharynx: Oropharynx is clear. Eyes: Extraocular Movements: Extraocular movements intact. Conjunctiva/sclera: Conjunctivae normal. Pupils: Pupils are equal, round, and reactive to light. Cardiovascular: Rate and Rhythm: Normal rate and regular rhythm. Pulmonary: Effort: Pulmonary effort is normal. No respiratory distress. Breath sounds: Normal breath sounds. No wheezing or rhonchi. Lymphadenopathy: Cervical: Cervical adenopathy present. Skin: General: Skin is warm and dry. Neurological: General: No focal deficit present. Mental Status: She is alert and oriented to person, place, and time. ASSESSMENT/PLAN: 1. Bacterial sinusitis - ICD9: 473.9, 041.9, ICD10: J32.9, B96.89 - Supportive care with plenty of fluids, rest, and analgesia prn. - albuterol as needed for SOB - AZITHROMYCIN 250 MG TABLET MD Lynn Goetz Marsha M, MD 08/05/2024 9:29 AM Signed SINUSITIS: You have sinusitis, an infection of the sinus cavities (more content not included)... [facility] CNOVon 05-25-2024 CNOV Office Visit ([facility] ) -- MARIAJOSE MARCELINO ([id number]) 1955 F Date Time Provider Department 05/25/24 10:15 AM YANIRA GARCIA During your visit today, we recorded the following information about you: Yanira Garcia MD 06/22/2024 5:[address] GARCIA- POST-OP KNEE ==== Post-Op F/U Office Visit ==== Mariajose Marcelino presents today for a 6 months status post revision Right TKA. Post-operative recovery was uneventful. Patient's rating of condition: improving Comments: None Does the Pt. still experience pain? Patient reports minimal pain Functional difficulties: Stair climbing Physical Therapy: Completed course of therapy Pain Medication: None Ambulating without assistance. Medications and Allergies reviewed and verified. ==== EXAM: ==== GEN: AANDO x3, NAD SKIN:Appropriate postop appearance Incision intact Incision well healed LeftKnee: ROM: Flexion/Extension:0 degrees to 115 degrees Pain with ROM:No Mal-alignment: No Effusion: None Non Tender to palpation of the medial , lateral , and patellofemoral joint line(s). Stability:Anterior/Posteri or- Yes, stable and Varus/Valgus- Yes, stable Quad strength: normal HIP: range of motion no loss ROM NV: intact and Jeramy's negative ==== IMAGING: ==== Xrays: No x-rays today == IMPRESSION/PLAN: == 68 year old female s/p revision Right TKA At normal post-operative stage of recovery. Plan: 1. Continue independent range of motion/strengthening exercises 2. Continue total knee precautions 3. Follow-up 6 months for repeat clinical/radiographic evaluation Yanira Garcia MD Electronic Signature Allergies As of Date: 05/25/2024 Noted Allergy Reaction AMOXICILLIN 12/12/2022 2 - Rash CECLOR (CEFACLOR) 02/03/2018 1 - Mental Status Change 2 - Rash Date Reviewed: 05/25/2024 Reviewed by: Malena Rodríguez OCCA - Fully Assessed Reason for Visit: Follow Up [171] Cmt: revision Knee Replacement [363] Cmt: revision Primary Visit Diagnosis:Aftercare following right knee joint replacement surgery [Z47.1, Z96.651] Prescriptions as of 06/22/2024 - acetaminophen (TYLENOL) 500 mg tablet Take 2 tablets by mouth every 8 hours as needed for pain. - ascorbic acid, vitamin C, (VITAMIN C) 500 mg tablet Take 1 tablet by mouth two times a day with meals for 27 doses. - aspirin, enteric coated (ASPIRIN, ENTERIC COATED) 81 mg EC tablet Take 1 tablet by mouth two times a day for 28 days. - clindamycin (CLEOCIN) 300 mg capsule Take two capsules by mouth one hour prior to dental appointment. - cholecalciferol, vitamin D3, (VITAMIN D3 ORAL) Take 1 capsule by mouth once daily. - Lactobacillus acidophilus (PROBIOTIC ORAL) Take 1 capsule by mouth once daily. - albuterol sulfate (PROAIR HFA INHALATION) Inhale 1 Puff as instructed every 4 hours as needed (wheezing sob). - rosuvastatin (CRESTOR) 40 mg tablet Take 40 mg by mouth once daily. - estradiol (ESTRACE) 0.01 % (0.1 mg/gram) vaginal cream Use 1 g vaginally twice a week. - levothyroxine (SYNTHROID) 50 mcg tablet Take 1 tablet by mouth daily before breakfast. - montelukast (SINGULAIR) 10 mg tablet Take 1 tablet by mouth daily at bedtime. - therapeutic multivitamin (THERA VITAMIN) tablet Take 1 tablet by mouth once daily. Meds Comments as of 06/24/2022: 06/24/[address] Grimaldo honor copat stop date of 06/26/22. 05/27/22- per orders of Dr Chadwick Grimaldo: Hold vancomycin the evening of 05/27/22; Rosita White R.N 05/23: Per Dr. Espinosa double to duration time of the infusion, pt. to call him back if any further chest discomfort. 05/20-per orders of Dr. Ashwin Grimaldo; Increase Vanco dose to 1.25g IV every 12 hours thru 06/26/22 sever interactions no longer taking toradol RB 05/18/2022 Problem List As Of Date 05/25/2024 Noted Resolved Primary osteoarthritis of left knee [M17.12] 05/24/2018 Primary osteoarthritis of right knee [M17.11] 05/24/2018 02/17/2019 Essential hypertension [I10] 12/31/2018 Acquired hypothyroidism [E03.9] 12/31/2018 Other hyperlipidemia [E78.49] 12/31/2018 Mild intermittent asthma without complication [*12/31/2018 Arthritis of knee [M17.10] 01/19/2019 01/20/2019 Status post total right knee replacement [Z96.6*02/09/2019 Infected orthopedic implant, 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 Follow-up and Dispositi (more content not included)... Normal [facility] CNOVon 01-22-2024 CNOV Office Visit ([facility] ) -- MARIAJOSE MARCELINO ([id number]) 1955 F Date Time Provider Department 01/22/24 1:45 PM YANRIA GARCIA During your visit today, we recorded the following information about you: Yanira Garcia MD 02/18/2024 1:[address] GARCIA- POST-OP KNEE ==== Post-Op F/U Office Visit ==== Mariajose Marcelino presents today for a 7 weeks status post revision Right TKA.(Second stage of two-stage reimplantation status post infected primary total knee arthroplasty) post-operative recovery was uneventful. Patient's rating of condition: improving Comments: None Does the Pt. still experience pain? PAIN EVALUATION 01/22/2024 1343 Pain Level: 1 Pain Location: Knee-Right Description: Tightness;Aching Duration Amount of Time: -- ongoing Frequency: Intermittent Intervention/Comfort measure: Cold;Exercise Functional difficulties: Stair climbing Physical Therapy: Yes Pain Medication: Yes Ambulating with assistance. Medications and Allergies reviewed and verified. ==== EXAM: ==== GEN: AANDO x3, NAD SKIN:Appropriate postop appearance Incision intact Incision well healed RightKnee: ROM: Flexion/Extension:0 degrees to 115 degrees Pain with ROM:No Mal-alignment: No Effusion: None Tender to palpation of the medial joint line(s). Stability:Anterior/Posteri or- Yes, stable and Varus/Valgus- Yes, stable Quad strength: normal HIP: range of motion no loss ROM NV: intact and Jeramy's negative ==== IMAGING: ==== Xrays: No x-rays today == IMPRESSION/PLAN: == 68 year old female s/p revision Right TKA At normal post-operative stage of recovery. Plan: 1. Continue range of motion/strengthening exercises and weightbearing as tolerated 2. Continue total knee precautions as discussed 3. Follow-up for repeat clinical evaluation Yanira E Sziraky, MD Electronic Signature Allergies As of Date: 01/22/2024 Noted Allergy Reaction AMOXICILLIN 12/12/2022 2 - Rash CECLOR (CEFACLOR) 02/03/2018 1 - Mental Status Change 2 - Rash Date Reviewed: 01/22/2024 Reviewed by: Malena Rodríguez OCCA - Fully Assessed Reason for Visit: Post Op [174] Cmt: revision Knee Replacement [363] Cmt: revision Primary Visit Diagnosis:S/P revision of total knee, right [Z96.651] Prescriptions as of 02/18/2024 - acetaminophen (TYLENOL) 500 mg tablet Take 2 tablets by mouth every 8 hours as needed for pain. - ascorbic acid, vitamin C, (VITAMIN C) 500 mg tablet Take 1 tablet by mouth two times a day with meals for 27 doses. - aspirin, enteric coated (ASPIRIN, ENTERIC COATED) 81 mg EC tablet Take 1 tablet by mouth two times a day for 28 days. - clindamycin (CLEOCIN) 300 mg capsule Take two capsules by mouth one hour prior to dental appointment. - cholecalciferol, vitamin D3, (VITAMIN D3 ORAL) Take 1 capsule by mouth once daily. - Lactobacillus acidophilus (PROBIOTIC ORAL) Take 1 capsule by mouth once daily. - albuterol sulfate (PROAIR HFA INHALATION) Inhale 1 Puff as instructed every 4 hours as needed (wheezing sob). - rosuvastatin (CRESTOR) 40 mg tablet Take 40 mg by mouth once daily. - estradiol (ESTRACE) 0.01 % (0.1 mg/gram) vaginal cream Use 1 g vaginally twice a week. - levothyroxine (SYNTHROID) 50 mcg tablet Take 1 tablet by mouth daily before breakfast. - montelukast (SINGULAIR) 10 mg tablet Take 1 tablet by mouth daily at bedtime. - therapeutic multivitamin (THERA VITAMIN) tablet Take 1 tablet by mouth once daily. Meds Comments as of 06/24/2022: 06/24/[address] Grimaldo honor copat stop date of 06/26/22. 05/27/22- per orders of Dr Chadwick Grimaldo: Hold vancomycin the evening of 05/27/22; Rosita White R.N 05/23: Per Dr. Espinosa double to duration time of the infusion, pt. to call him back if any further chest discomfort. 05/20-per orders of Dr. Ashwin Grimaldo; Increase Vanco dose to 1.25g IV every 12 hours thru 06/26/22 sever interactions no longer taking toradol RB 05/18/2022 Problem List As Of Date 01/22/2024 Noted Resolved Primary osteoarthritis of left knee [M17.12] 05/24/2018 Primary osteoarthritis of right knee [M17.11] 05/24/2018 02/17/2019 Essential hypertension [I10] 12/31/2018 Acquired hypothyroidism [E03.9] 12/31/2018 Other hyperlipidemia [E78.49] 12/31/2018 Mild intermittent asthma without complication [*12/31/2018 Arthritis of knee [M17.10] 01/19/2019 01/20/2019 Status post total right knee replacement [Z96.6*02/09/2019 Infected orthopedic implant, 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 Normal [facility] CNTHERAPYon 01-22-2024 CNTHERAPY OT/PT/Speech Visit ([facility]) -- MARIAJOSE MARCELINO ([id number]) 1955 F Date Time Provider Department 01/22/24 9:00 AM KEMAL ALDRICH Date Time Provider Department Center 01/22/2024 9:00 AM [id number] ALDRICH [facility] Reason for Visit: PT Progress Note [5616] PT Discharge [752] Primary Visit Diagnosis:Chronic pain of right knee [M25.561, G89.29] Other Visit Diagnoses:Muscle weakness (generalized) [M62.81] S/P revision of total knee, right [Z96.651] Localized edema [R60.0] Allergies As of Date: 01/22/2024 Noted Allergy Reaction AMOXICILLIN 12/12/2022 2 - Rash CECLOR (CEFACLOR) 02/03/2018 1 - Mental Status Change 2 - Rash Date Reviewed: 01/22/2024 Reviewed by: Malena Rodríguez OCCA - Fully Assessed Prescriptions as of 01/23/2024 - acetaminophen (TYLENOL) 500 mg tablet Take 2 tablets by mouth every 8 hours as needed for pain. - ascorbic acid, vitamin C, (VITAMIN C) 500 mg tablet Take 1 tablet by mouth two times a day with meals for 27 doses. - aspirin, enteric coated (ASPIRIN, ENTERIC COATED) 81 mg EC tablet Take 1 tablet by mouth two times a day for 28 days. - clindamycin (CLEOCIN) 300 mg capsule Take two capsules by mouth one hour prior to dental appointment. - cholecalciferol, vitamin D3, (VITAMIN D3 ORAL) Take 1 capsule by mouth once daily. - Lactobacillus acidophilus (PROBIOTIC ORAL) Take 1 capsule by mouth once daily. - albuterol sulfate (PROAIR HFA INHALATION) Inhale 1 Puff as instructed every 4 hours as needed (wheezing sob). - rosuvastatin (CRESTOR) 40 mg tablet Take 40 mg by mouth once daily. - estradiol (ESTRACE) 0.01 % (0.1 mg/gram) vaginal cream Use 1 g vaginally twice a week. - levothyroxine (SYNTHROID) 50 mcg tablet Take 1 tablet by mouth daily before breakfast. - montelukast (SINGULAIR) 10 mg tablet Take 1 tablet by mouth daily at bedtime. - therapeutic multivitamin (THERA VITAMIN) tablet Take 1 tablet by mouth once daily. Meds Comments as of 06/24/2022: 06/24/[address] Grimaldo honor copat stop date of 06/26/22. 05/27/22- per orders of Dr Chadwick Grimaldo: Hold vancomycin the evening of 05/27/22; Rosita White R.N 05/23: Per Dr. Espinosa double to duration time of the infusion, pt. to call him back if any further chest discomfort. 05/20-per orders of Dr. Ashwin Grimaldo; Increase Vanco dose to 1.25g IV every 12 hours thru 06/26/22 sever interactions no longer taking toradol RB 05/18/2022 -- Letter Text [facility] CNTHERAPYon 01-19-2024 CNTHERAPY OT/PT/Speech Visit (PTMAJK) -- MARIAJOSE MARCELINO ([id number]) 1955 F Date Time Provider Department 01/19/24 9:30 AM DRAKE PAIGE Y [facility] Date Time Provider Department Center 01/19/2024 9:30 AM [id number] PAIGE [facility] J Reason for Visit: Physical Therapy [503] Primary Visit Diagnosis:Chronic pain of right knee [M25.561, G89.29] Other Visit Diagnosis:Muscle weakness (generalized) [M62.81] Allergies As of Date: 01/19/2024 Noted Allergy Reaction AMOXICILLIN 12/12/2022 2 - Rash CECLOR (CEFACLOR) 02/03/2018 1 - Mental Status Change 2 - Rash Date Reviewed: 12/17/2023 Reviewed by: Candace Raymundo, PT - Fully Assessed Prescriptions as of 01/19/2024 - acetaminophen (TYLENOL) 500 mg tablet Take 2 tablets by mouth every 8 hours as needed for pain. - ascorbic acid, vitamin C, (VITAMIN C) 500 mg tablet Take 1 tablet by mouth two times a day with meals for 27 doses. - aspirin, enteric coated (ASPIRIN, ENTERIC COATED) 81 mg EC tablet Take 1 tablet by mouth two times a day for 28 days. - clindamycin (CLEOCIN) 300 mg capsule Take two capsules by mouth one hour prior to dental appointment. - cholecalciferol, vitamin D3, (VITAMIN D3 ORAL) Take 1 capsule by mouth once daily. - Lactobacillus acidophilus (PROBIOTIC ORAL) Take 1 capsule by mouth once daily. - albuterol sulfate (PROAIR HFA INHALATION) Inhale 1 Puff as instructed every 4 hours as needed (wheezing sob). - rosuvastatin (CRESTOR) 40 mg tablet Take 40 mg by mouth once daily. - estradiol (ESTRACE) 0.01 % (0.1 mg/gram) vaginal cream Use 1 g vaginally twice a week. - levothyroxine (SYNTHROID) 50 mcg tablet Take 1 tablet by mouth daily before breakfast. - montelukast (SINGULAIR) 10 mg tablet Take 1 tablet by mouth daily at bedtime. - therapeutic multivitamin (THERA VITAMIN) tablet Take 1 tablet by mouth once daily. Meds Comments as of 06/24/2022: 06/24/[address] Grimaldo honor copat stop date of 06/26/22. 05/27/22- per orders of Dr Chadwick Grimaldo: Hold vancomycin the evening of 05/27/22; Rosita White R.N 05/23: Per Dr. Espinosa double to duration time of the infusion, pt. to call him back if any further chest discomfort. 05/20-per orders of Dr. Ashwin Grimaldo; Increase Vanco dose to 1.25g IV every 12 hours thru 06/26/22 sever interactions no longer taking toradol RB 05/18/2022 -- [facility] CNTHERAPYon 01-08-2024 CNTHERAPY OT/PT/Speech Visit (PTMAJK) -- MARIAJOSE MARCELINO ([id number]) 1955 F Date Time Provider Department 01/08/24 9:00 AM KEMAL ALDRICHMIKY Date Time Provider Department Center 01/08/2024 9:00 AM [id number][facility] Reason for Visit: Physical Therapy [503] Primary Visit Diagnosis:Chronic pain of right knee [M25.561, G89.29] Other Visit Diagnoses:Muscle weakness (generalized) [M62.81] S/P revision of total knee, right [Z96.651] Localized edema [R60.0] Allergies As of Date: 01/08/2024 Noted Allergy Reaction AMOXICILLIN 12/12/2022 2 - Rash CECLOR (CEFACLOR) 02/03/2018 1 - Mental Status Change 2 - Rash Date Reviewed: 12/17/2023 Reviewed by: Candace Raymundo, PT - Fully Assessed Prescriptions as of 01/08/2024 - acetaminophen (TYLENOL) 500 mg tablet Take 2 tablets by mouth every 8 hours as needed for pain. - ascorbic acid, vitamin C, (VITAMIN C) 500 mg tablet Take 1 tablet by mouth two times a day with meals for 27 doses. - aspirin, enteric coated (ASPIRIN, ENTERIC COATED) 81 mg EC tablet Take 1 tablet by mouth two times a day for 28 days. - clindamycin (CLEOCIN) 300 mg capsule Take two capsules by mouth one hour prior to dental appointment. - cholecalciferol, vitamin D3, (VITAMIN D3 ORAL) Take 1 capsule by mouth once daily. - Lactobacillus acidophilus (PROBIOTIC ORAL) Take 1 capsule by mouth once daily. - albuterol sulfate (PROAIR HFA INHALATION) Inhale 1 Puff as instructed every 4 hours as needed (wheezing sob). - rosuvastatin (CRESTOR) 40 mg tablet Take 40 mg by mouth once daily. - estradiol (ESTRACE) 0.01 % (0.1 mg/gram) vaginal cream Use 1 g vaginally twice a week. - levothyroxine (SYNTHROID) 50 mcg tablet Take 1 tablet by mouth daily before breakfast. - montelukast (SINGULAIR) 10 mg tablet Take 1 tablet by mouth daily at bedtime. - therapeutic multivitamin (THERA VITAMIN) tablet Take 1 tablet by mouth once daily. Meds Comments as of 06/24/2022: 06/24/[address] Grimaldo honor copat stop date of 06/26/22. 05/27/22- per orders of Dr Chadwick Grimaldo: Hold vancomycin the evening of 05/27/22; Rosita White R.N 05/23: Per Dr. Espinosa double to duration time of the infusion, pt. to call him back if any further chest discomfort. 05/20-per orders of Dr. Ashwin Grimaldo; Increase Vanco dose to 1.25g IV every 12 hours thru 06/26/22 sever interactions no longer taking toradol RB 05/18/2022 -- [facility] CNTHERAPYon 01-05-2024 CNTHERAPY OT/PT/Speech Visit (BALDEMAR) -- MARIAJOSE MARCELINO ([id number]) 1955 F Date Time Provider Department 01/05/24 9:30 AM DRAKE PAIGE Date Time Provider Department Center 01/05/2024 9:30 AM [id number] PAIGE [facility] J Reason for Visit: Physical Therapy [503] Primary Visit Diagnosis:Chronic pain of right knee [M25.561, G89.29] Other Visit Diagnosis:Muscle weakness (generalized) [M62.81] Allergies As of Date: 01/05/2024 Noted Allergy Reaction AMOXICILLIN 12/12/2022 2 - Rash CECLOR (CEFACLOR) 02/03/2018 1 - Mental Status Change 2 - Rash Date Reviewed: 12/17/2023 Reviewed by: Candace Raymundo, PT - Fully Assessed Prescriptions as of 01/05/2024 - acetaminophen (TYLENOL) 500 mg tablet Take 2 tablets by mouth every 8 hours as needed for pain. - ascorbic acid, vitamin C, (VITAMIN C) 500 mg tablet Take 1 tablet by mouth two times a day with meals for 27 doses. - aspirin, enteric coated (ASPIRIN, ENTERIC COATED) 81 mg EC tablet Take 1 tablet by mouth two times a day for 28 days. - clindamycin (CLEOCIN) 300 mg capsule Take two capsules by mouth one hour prior to dental appointment. - cholecalciferol, vitamin D3, (VITAMIN D3 ORAL) Take 1 capsule by mouth once daily. - Lactobacillus acidophilus (PROBIOTIC ORAL) Take 1 capsule by mouth once daily. - albuterol sulfate (PROAIR HFA INHALATION) Inhale 1 Puff as instructed every 4 hours as needed (wheezing sob). - rosuvastatin (CRESTOR) 40 mg tablet Take 40 mg by mouth once daily. - estradiol (ESTRACE) 0.01 % (0.1 mg/gram) vaginal cream Use 1 g vaginally twice a week. - levothyroxine (SYNTHROID) 50 mcg tablet Take 1 tablet by mouth daily before breakfast. - montelukast (SINGULAIR) 10 mg tablet Take 1 tablet by mouth daily at bedtime. - therapeutic multivitamin (THERA VITAMIN) tablet Take 1 tablet by mouth once daily. Meds Comments as of 06/24/2022: 06/24/[address] Grimaldo honor copat stop date of 06/26/22. 05/27/22- per orders of Dr Chadwick Grimaldo: Hold vancomycin the evening of 05/27/22; Rosita White R.N 05/23: Per Dr. Espinosa double to duration time of the infusion, pt. to call him back if any further chest discomfort. 05/20-per orders of Dr. Ashwin Grimaldo; Increase Vanco dose to 1.25g IV every 12 hours thru 06/26/22 sever interactions no longer taking toradol RB 05/18/2022 -- [facility] CNTHERAPYon 01-01-2024 CNTHERAPY OT/PT/Speech Visit (BALDEMAR) -- MARIAJOSE MARCELINO ([id number]) 1955 F Date Time Provider Department 01/01/24 9:30 AM MADELAINE DICKSON Date Time Provider Department Center 01/01/2024 9:30 AM [id number], DAVID R [facility] J Reason for Visit: Physical Therapy [503] Primary Visit Diagnosis:Chronic pain of right knee [M25.561, G89.29] Other Visit Diagnosis:Muscle weakness (generalized) [M62.81] Allergies As of Date: 01/01/2024 Noted Allergy Reaction AMOXICILLIN 12/12/2022 2 - Rash CECLOR (CEFACLOR) 02/03/2018 1 - Mental Status Change 2 - Rash Date Reviewed: 12/17/2023 Reviewed by: Candace Raymundo, PT - Fully Assessed Prescriptions as of 01/01/2024 - acetaminophen (TYLENOL) 500 mg tablet Take 2 tablets by mouth every 8 hours as needed for pain. - ascorbic acid, vitamin C, (VITAMIN C) 500 mg tablet Take 1 tablet by mouth two times a day with meals for 27 doses. - aspirin, enteric coated (ASPIRIN, ENTERIC COATED) 81 mg EC tablet Take 1 tablet by mouth two times a day for 28 days. - docusate sodium (COLACE) 100 mg capsule Take 1 capsule by mouth two times a day as needed for constipation. - clindamycin (CLEOCIN) 300 mg capsule Take two capsules by mouth one hour prior to dental appointment. - cholecalciferol, vitamin D3, (VITAMIN D3 ORAL) Take 1 capsule by mouth once daily. - Lactobacillus acidophilus (PROBIOTIC ORAL) Take 1 capsule by mouth once daily. - albuterol sulfate (PROAIR HFA INHALATION) Inhale 1 Puff as instructed every 4 hours as needed (wheezing sob). - rosuvastatin (CRESTOR) 40 mg tablet Take 40 mg by mouth once daily. - estradiol (ESTRACE) 0.01 % (0.1 mg/gram) vaginal cream Use 1 g vaginally twice a week. - levothyroxine (SYNTHROID) 50 mcg tablet Take 1 tablet by mouth daily before breakfast. - montelukast (SINGULAIR) 10 mg tablet Take 1 tablet by mouth daily at bedtime. - therapeutic multivitamin (THERA VITAMIN) tablet Take 1 tablet by mouth once daily. Meds Comments as of 06/24/2022: 06/24/[address] Grimaldo honor copat stop date of 06/26/22. 05/27/22- per orders of Dr Chadwick Grimaldo: Hold vancomycin the evening of 05/27/22; Rositamilton Zaragoza R.N 05/23: Per Dr. Espinosa double to duration time of the infusion, pt. to call him back if any further chest discomfort. 05/20-per orders of Dr. Ashwin Grimaldo; Increase Vanco dose to 1.25g IV every 12 hours thru 06/26/22 sever interactions no longer taking toradol RB 05/18/2022 -- [facility] CNTHERAPYon 12-29-2023 CNTHERAPY OT/PT/Speech Visit (BALDEMAR) -- MARIAJOSE MARCELINO ([id number]) 1955 F Date Time Provider Department 12/29/23 9:30 [facility] Provider Department [place] 12/29/2023 9:30 AM [id number], DRAKE [facility] J Reason for Visit: Physical Therapy [503] Primary Visit Diagnosis:Chronic pain of right knee [M25.561, G89.29] Other Visit Diagnosis:Muscle weakness (generalized) [M62.81] Allergies As of Date: 12/29/2023 Noted Allergy Reaction AMOXICILLIN 12/12/2022 2 - Rash CECLOR (CEFACLOR) 02/03/2018 1 - Mental Status Change 2 - Rash Date Reviewed: 12/17/2023 Reviewed by: Candace Raymundo, PT - Fully Assessed Prescriptions as of 01/04/2024 - acetaminophen (TYLENOL) 500 mg tablet Take 2 tablets by mouth every 8 hours as needed for pain. - ascorbic acid, vitamin C, (VITAMIN C) 500 mg tablet Take 1 tablet by mouth two times a day with meals for 27 doses. - aspirin, enteric coated (ASPIRIN, ENTERIC COATED) 81 mg EC tablet Take 1 tablet by mouth two times a day for 28 days. - clindamycin (CLEOCIN) 300 mg capsule Take two capsules by mouth one hour prior to dental appointment. - cholecalciferol, vitamin D3, (VITAMIN D3 ORAL) Take 1 capsule by mouth once daily. - Lactobacillus acidophilus (PROBIOTIC ORAL) Take 1 capsule by mouth once daily. - albuterol sulfate (PROAIR HFA INHALATION) Inhale 1 Puff as instructed every 4 hours as needed (wheezing sob). - rosuvastatin (CRESTOR) 40 mg tablet Take 40 mg by mouth once daily. - estradiol (ESTRACE) 0.01 % (0.1 mg/gram) vaginal cream Use 1 g vaginally twice a week. - levothyroxine (SYNTHROID) 50 mcg tablet Take 1 tablet by mouth daily before breakfast. - montelukast (SINGULAIR) 10 mg tablet Take 1 tablet by mouth daily at bedtime. - therapeutic multivitamin (THERA VITAMIN) tablet Take 1 tablet by mouth once daily. Meds Comments as of 06/24/2022: 06/24/[address] Grimaldo honor copat stop date of 06/26/22. 05/27/22- per orders of Dr Chadwick Grimaldo: Hold vancomycin the evening of 05/27/22; Rosita Guo.Mee 05/23: Per Dr. Espinosa double to duration time of the infusion, pt. to call him back if any further chest discomfort. 05/20-per orders of Dr. Ashwin Grimaldo; Increase Vanco dose to 1.25g IV every 12 hours thru 06/26/22 sever interactions no longer taking toradol RB 05/18/2022 -- [facility] XR Knee AP and Lateral and M donald 12-19-2023 IMPRESSION: Peter MONTALVO. Milieu Coordinator: JANAE Transcribe Date/Time: Dec 19 2023 10:03A Dictated by : BILLY KELLY MD This examination was interpreted and the report reviewed and electronically signed by: BILLY KELLY MD on Dec 19 2023 10:04AM [facility] * * *Final Report* * * DATE OF EXAM: Dec 18 2023 12:41PM TYSON Arreola9 - XR KNEE 3V AP/LAT/MERCHANT RT / PROCEDURE REASON: M25.561-Right knee pain, unspecified chronicity * * * * Physician Interpretation * * * * PROCEDURE: Right knee INDICATION: Right knee pain, unspecified chronicity .RIGHT KNEE PAIN TECHNIQUE: XR KNEE 3V AP/LAT/MERCHANT RT COMPARISON: 12/03/2023 FINDINGS: The total knee arthroplasty remains in satisfactory position without evidence for loosening. Small patellar remnant noted. No periprosthetic fracture or significant joint effusion. Advanced left knee osteoarthrosis. [facility] Provider, Ccvince Sibley - 12/19/2023 * * *Final Report* * * DATE OF EXAM: Dec 18 2023 12:41PM TYSON 5209 - XR KNEE 3V AP/LAT/MERCHANT RT / PROCEDURE REASON: M25.561-Right knee pain, unspecified chronicity * * * * Physician Interpretation * * * * PROCEDURE: Right knee INDICATION: Right knee pain, unspecified chronicity .RIGHT KNEE PAIN TECHNIQUE: XR KNEE 3V AP/LAT/MERCHANT RT COMPARISON: 12/03/2023 FINDINGS: The total knee arthroplasty remains in satisfactory position without evidence for loosening. Small patellar remnant noted. No periprosthetic fracture or significant joint effusion. Advanced left knee osteoarthrosis. IMPRESSION IMPRESSION: Stable TKA. Milieu Coordinator: PSCB Transcribe Date/Time: Dec 19 2023 10:03A Dictated by : BILLY KELLY MD This examination was interpreted and the report reviewed and electronically signed by: BILLY KELLY MD on Dec 19 2023 10:04AM EST [facility] XR Knee AP and Lateral and M erchantsOrdered By: [facility] Provider on 12-19-2023 [facility] [id number] 12-18-2023 [id number] HNO ID: [id number] Author: MARTITA MASCORRO PT Service: ? Author Type: Physical Therapist Type: [id number] Filed: 12/18/2023 09:28 Note Text: [facility] Physical Therapy Plan of Care Certification Patient Name: Mariajose Marcelino : 1955 [facility] #: [id number] Date: 12/18/2023 To: Yanira Garcia MD From Therapist: Laureen Taylor PT, DPT RE: Patient Certification/ Recertification Your review, approval and electronic signature are required in order to comply with Payor: MEDICARE / Plan: MEDICARE A AND B / Product Type: Medicare / regulations. The identified Physical Therapy PLAN OF CARE for the patient is as follows: M25.561, G89.29 Chronic pain of right knee (primary encounter diagnosis) M62.81 Muscle weakness (generalized) PLAN OF CARE: Assessment: Mariajose Marcelino presents with diagnosis of s/p R TKA revision on 12/03/2023 that interferes with walking in the community, stair negotiation, recreational activities, sleeping . She presents with impairments in gait, independence in exercise, overall function, range of motion, strength, and symptom management. PROMIS? (Patient-Reported Outcomes Measurement Information System) scores were reviewed and identified as a rehabilitation concern. Prognosis for therapy is Good due to: current objective clinical presentation . She will benefit from skilled therapy services to meet the goals established for this plan of care as noted below. Goals for Episode of Care: created on 12/18/23 through 01/29/24 [place] in home exercise program. Patient will decrease pain to 0/10 at rest and with functional activities to allow patient to improve ambulation. Patient will increase active ROM of R knee to 0-120 degrees to allow pt to to improve gait mechanics / gait pattern . Patient will demonstrate increase in B LE strength to 5/5 during manual muscle testing in order to improve function for prior functional tasks. Patient will Improve Timed Up and Go to <12 seconds to demonstrate decreased risk of falling. Normal gait. Reciprocal stair negotiation. Patient Goals: return to PLOF Planned Interventions, Frequency, and Duration: Current Frequency: 3x/week Duration: 6 weeks Total Number of Visits Planned: 18 Planned Treatment Interventions: Therapeutic exercise (11769), Manual therapy (87646), Therapeutic activities (00102), Self-fdc management (36707), Gait Training (16577), Patient/Family/Caregiver Education, Body Mechanics Training, Neuromuscular re-education (10595) (hot and cold modalities prn) PLAN FOR NEXT VISIT: Review HEP; continue to progress quad/glute strengthening and knee flexion AAROM/AROM Patient demonstrates good understanding of plan of care and treatment. The above goals and plan of care were discussed and agreed upon by patient/family. For further details regarding this patient refer to the Physical Therapy electronically documented visit dated 12/18/2023. Provider Attestation I have reviewed the treatment plan for Mariajose Marcelino, [facility]# [id number] for the period of 12/18/23 -- 02/05/24, established on 12/18/2023. Signature certifies the need for therapy services. [facility] CNTHERAPYon 12-18-2023 CNTHERAPY OT/PT/Speech Visit (PTMAJK) -- MARIAJOSE MARCELINO ([id number]) 1955 F Date Time Provider Department 12/18/23 8:00 AM MARTITA MASCORRO Date Time Provider Department Center 12/18/2023 8:00 AM [id number] J Reason for Visit: PT Eval [747] Primary Visit Diagnosis:Chronic pain of right knee [M25.561, G89.29] Other Visit Diagnosis:Muscle weakness (generalized) [M62.81] Allergies As of Date: 12/18/2023 Noted Allergy Reaction AMOXICILLIN 12/12/2022 2 - Rash CECLOR (CEFACLOR) 02/03/2018 1 - Mental Status Change 2 - Rash Date Reviewed: 12/17/2023 Reviewed by: Candace Raymundo, PT - Fully Assessed Prescriptions as of 12/18/2023 - acetaminophen (TYLENOL) 500 mg tablet Take 2 tablets by mouth every 8 hours as needed for pain. - ascorbic acid, vitamin C, (VITAMIN C) 500 mg tablet Take 1 tablet by mouth two times a day with meals for 27 doses. - aspirin, enteric coated (ASPIRIN, ENTERIC COATED) 81 mg EC tablet Take 1 tablet by mouth two times a day for 28 days. - docusate sodium (COLACE) 100 mg capsule Take 1 capsule by mouth two times a day as needed for constipation. - clindamycin (CLEOCIN) 300 mg capsule Take two capsules by mouth one hour prior to dental appointment. - cholecalciferol, vitamin D3, (VITAMIN D3 ORAL) Take 1 capsule by mouth once daily. - Lactobacillus acidophilus (PROBIOTIC ORAL) Take 1 capsule by mouth once daily. - albuterol sulfate (PROAIR HFA INHALATION) Inhale 1 Puff as instructed every 4 hours as needed (wheezing sob). - rosuvastatin (CRESTOR) 40 mg tablet Take 40 mg by mouth once daily. - estradiol (ESTRACE) 0.01 % (0.1 mg/gram) vaginal cream Use 1 g vaginally twice a week. - levothyroxine (SYNTHROID) 50 mcg tablet Take 1 tablet by mouth daily before breakfast. - montelukast (SINGULAIR) 10 mg tablet Take 1 tablet by mouth daily at bedtime. - therapeutic multivitamin (THERA VITAMIN) tablet Take 1 tablet by mouth once daily. Meds Comments as of 06/24/2022: 06/24/[address] Grimaldo honor copat stop date of 06/26/22. 05/27/22- per orders of Dr Chadwick Grimaldo: Hold vancomycin the evening of 05/27/22; Rosita White R.N 05/23: Per Dr. Espinosa double to duration time of the infusion, pt. to call him back if any further chest discomfort. 05/20-per orders of Dr. 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 (PT/OT/Speech/Resp) ID: [id number] 12/18/2023 8:32 AM Author: MARTITA MASCORRO Signed by MARTITA MASCORRO PT on 12/18/2023 at 8:32 AM Document text: Program_ID:[id number] Access Code: [email or web address] URL: [email or web address] Date: 12-18-2023 Prepared By: Martita Mascorro Program Notes Exercises - Seated Hip Abduction with Resistance - 1 x daily - 7 x weekly - 3 sets - 10 reps - Seated Hip Adduction Isometrics with Ball - 1 x daily - 7 x weekly - 3 sets - 10 reps - Seated Hamstring Curl with Anchored Resistance - 1 x daily - 7 x weekly - 3 sets - 10 reps - Sit to Stand - 1 x daily - 7 x weekly - 3 sets - [address] [facility] THERAPY NTon 12-18-2023 THERAPY NT HNO ID: [id number] Author: MARTITA MASCORRO PT Service: ? Author Type: Physical Therapist Type: Therapy (PT/OT/Speech/Resp) Filed: 12/18/2023 08:32 Note Text: Program_ID:[id number] Access Code: [email or web address] URL: [email or web address] Date: 12-18-2023 Prepared By: Martita Mascorro Program Notes Exercises - Seated Hip Abduction with Resistance - 1 x daily - 7 x weekly - 3 sets - 10 reps - Seated Hip Adduction Isometrics with Ball - 1 x daily - 7 x weekly - 3 sets - 10 reps - Seated Hamstring Curl with Anchored Resistance - 1 x daily - 7 x weekly - 3 sets - 10 reps - Sit to Stand - 1 x daily - 7 x weekly - 3 sets - 10 reps [facility] XR KNEE 3V AP/LAT/MERCHANT R Ton 12-18-2023 XR KNEE 3V AP/LAT/MERCHANT RT * * *Final Report* * * DATE OF EXAM: Dec 18 2023 12:41PM TYOSN 5209 - XR KNEE 3V AP/LAT/MERCHANT RT / PROCEDURE REASON: M25.561-Right knee pain, unspecified chronicity * * * * Physician Interpretation * * * * PROCEDURE: Right knee INDICATION: Right knee pain, unspecified chronicity .RIGHT KNEE PAIN TECHNIQUE: XR KNEE 3V AP/LAT/MERCHANT RT COMPARISON: 12/03/2023 FINDINGS: The total knee arthroplasty remains in satisfactory position without evidence for loosening. Small patellar remnant noted. No periprosthetic fracture or significant joint effusion. Advanced left knee osteoarthrosis. IMPRESSION: Stable TKA. Milieu Coordinator: JANAE Transcribe Date/Time: Dec 19 2023 10:03A Dictated by : BILLY KELLY MD This examination was interpreted and the report reviewed and electronically signed by: BILLY KELLY MD on Dec 19 2023 10:04AM EST [id number] Normal [facility] XR Knee AP and Lateral and M erchantson 12-18-2023 Radiology Study observation (narrative) [facility] OPERATIVE NOon 12-07-2023 OPERATIVE NO HNO ID: [id number] Author: YANIRA GARCIA MD Service: Orthopaedic Surgery Author Type: Physician Type: Operative Report Filed: 12/08/2023 10:50 Note Text: [facility] - Operative Report MARIAJOSE MARCELINO : 1955 AGE: 68. SEX: F PATIENT TYPE: I HOSP [facility] [place]: OR LOCATION: [facility] [place] ATTENDING PHYSICIAN: Yanira Garcia M.D. CSN NUMBER: [id number] DATE OF SURGERY/PROCEDURE: 12/03/2023 INCISION/PROCEDURE START TIME: 1143 hours. INCISION CLOSE/PROCEDURE END TIME: 1450 hours. 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 POSTOPERATIVE DIAGNOSIS: same SURGEON: Yanira Garcia M.D. [employer] MEMBER: KOMAL Copeland -- professional nursing assistant. No qualified residents were available for the case. PA was utilized for soft tissue retraction and holding the limb in an acceptable alignment to allow for correct implantation of arthroplasty components. SURGERY/PROCEDURE: Revision total knee arthroplasty. ANESTHESIA: Choice - Anesthesia Consult LOG ID: [id number] ESTIMATED BLOOD LOSS: 50 mL. SPECIMENS: Explanted tibia, femur, and patella. COMPLICATIONS: None. CLOSURE TECHNIQUE: Primary. SUMMARY OF IMPLANTS USED: A size 2 Keegan Triathlon Tritanium base plate with a size A tibial cone, 10 mm medial and lateral tibial augmentation wedges for size 2 tibia, a size two 19 mm thick posterior stabilized tibial insert with a 9 mm x 100 mm stem. Size 3 Triathlon TS distal femoral component with a 5 mm and 10 mm distal augment and a 5 mm posterior augment and a 100 x 9 mm femoral stem. No patellar resurfacing. CLINICAL HISTORY: This is a 68-year-old lady who had undergone a total knee arthroplasty in the past. She developed increased pain and was diagnosed as having a prosthetic infection, which was treated with an explantation of the primary component and placement of an all tibial polyethylene spacer and a cemented distal femoral component and a cemented polyethylene button for the tibia as the first stage of a two-stage implantation. The patient had a good results with the initial implantation and minimal pain until recently when she began having an increase in discomfort, sensation of hyperextension and instability. Bone scan was obtained showing what appeared to be loosening of the components, although the lab recall showed that there were no indications of recurrent sepsis. As the patient was having continued pain, she was offered a removal of the trial implants and revision to a total knee arthroplasty. Risks, goals, complications of procedure including anesthetic complications, infection, recurrence of infection, previous infection, instability, stiffness, and possibility of DVT and the possibility of blood loss necessitating transfusion. She understood and wished to proceed. DESCRIPTION OF PROCEDURE: Patient was taken to the operating room, underwent general anesthetic by the Department of Anesthesia. The right leg was then prepped and draped in the usual sterile fashion. The leg was held in an elevated position and exsanguinated and the tourniquet was inflated. After the time-out was completed, the previously used anterior midline incision was incorporated to the new incision which was extended slightly proximal, superior and inferior. Care was taken to ensure that appropriate thickness of subcutaneous flaps were utilized and the previously performed arthrotomy was identified. The arthrotomy was opened. There was minimal inflammatory fluid. The patellar button was noted to be grossly loose and thus was removed with a cement plug and left only a wafer of patellar bone left and therefore decision to not proceed with resurfacing was made. The medial and lateral tibial periosteum was gently elevated at the periosteal bone interface to increase visualization of the tibial component and the knee was brought into flexion. The margins of the femoral component were then identified and flexible osteotomes were used to gently osteotomized the interval between the cement and the bone and the femoral component was then removed with minimal bone loss. Attention was then turned to the tibia, where the tibial component was removed using osteotomes. The remaining cement mantle including that extending down into the intramedullary canal were carefully removed by chiseling away with osteotome, leaving as much bone remaining as possible. The tibial canal was then reamed by hand with the tibial reamers for the Gecko TS revision system. It was reamed up to an appropriate diameter that allowed for good stability of the reamer in the canal and it was reamed to an appropriate depth for a 100 mm stem. The proximal tibia was then reamed using a cone reamer down for a size A cone. This was done after the proximal tibia was cut using the tibial cutting guide for a freshen up cut in the proxi (more content not included)... Normal [facility] Basic metabolic 2000 panelon 12-04-2023 Anion gap [Moles/Vol] 9 mmol/L Normal 9-18 [facility] Comment on above: Order Comment: Speci men Type: BLOOD SPECIMENOrdering Facility: [facility] Address: [address] [place] [address] Performed By: #### 2 4321-2 ####[facility] LABORATORYCLIA [id number] [place] [address] [place] Calcium [Mass/Vol] 9.3 mg/dL Normal 8.5-10.2 [facility] Comment on above: Order Comment: Speci men Type: BLOOD SPECIMENOrdering Facility: [facility] Address: [address] [place] [address] Performed By: #### 2 4321-2 ####BARRAZA LABORATORYCLIA [id number] [place] [address] [place] Chloride [Moles/Vol] 100 mmol/L Normal 97-[address] [facility] Comment on above: Order Comment: Speci men Type: BLOOD SPECIMENOrdering Facility: [facility] Address: [address] [place] [address] Performed By: #### 2 4321-2 ####BARRAZA LABORATORYCLIA [id number] [place] [address] [place] CO2 [Moles/Vol] 26 mmol/L Normal 22-30 [facility] Comment on above: Order Comment: Speci men Type: BLOOD SPECIMENOrdering Facility: [facility] Address: [address] [place] [address] Performed By: #### 2 4321-2 ####BARRAZA LABORATORYCLIA [id number] [place] [address] [place] Creatinine [Mass/Vol] 0.67 mg/dL Normal 0.58-0.96 [facility] Comment on above: Order Comment: Speci men Type: BLOOD SPECIMENOrdering Facility: [facility] Address: [address] [place] [address] Performed By: #### 2 4321-2 ####[facility] LABORATORYCLIA [id number] [place] [address] [place] Creatinine and Glomerular filtration rate.predicted panel (S/P/Bld) 94 mL/min/1.73m??? Normal >=60 [facility] Comment on above: Order Comment: Janny jefferson Type: BLOOD SPECIMENOrdering Facility: [facility] Address: [address] [place] [address] Result Comment: Beena mated Glomerular Filtration Rate (eGFR) is calculated using the 2020 CKD-EPI creatinine equation. This equation utilizes serum creatinine, sex, and age as parameters. The creatinine assay has traceable calibration to isotope dilution-mass spectrometry. Refer to KDIGO guidelines for clinical interpretation. In patients with unstable renal function, e.g. those with acute kidney injury, the eGFR may not accurately reflect actual GFR. Performed By: #### 2 4321-2 ####BARRAZA LABORATORYCLIA [id number] [place] [id number] [place] Glucose [Mass/Vol] 129 mg/dL High 74-99 [facility] Comment on above: Order Comment: Janny jefferson Type: BLOOD SPECIMENOrdering Facility: [facility] Address: [address] [place] [address] Result Comment: The [place] Diabetes Association (ADA) provides guidance for cutoff values for fasting glucose and random glucose. The ADA defines fasting as no caloric intake for at least 8 hours. Fasting plasma glucose results between 100 to 125 mg/dL indicate increased risk for diabetes (prediabetes). Fasting plasma glucose results greater than or equal to 126 mg/dL meet the criteria for diagnosis of diabetes. In the absence of unequivocal hyperglycemia, results should be confirmed by repeat testing. In a patient with classic symptoms of hyperglycemia or hyperglycemic crisis, random plasma glucose results greater than or equal to 200 mg/dL meet the criteria for diagnosis of diabetes. Reference: Standards of Medical Care in Diabetes 2016, [place] [employer]. Diabetes Care. 2016.39(Suppl 1). Performed By: #### 2 4321-2 ####[facility] LABORATORYCLIA [id number] [place] [address] [place] Potassium [Moles/Vol] 4.5 mmol/L Normal 3.7-5.1 [facility] Comment on above: Order Comment: Speci men Type: BLOOD SPECIMENOrdering Facility: [facility] Address: [address] [place] [address] Performed By: #### 2 4321-2 ####BARRAZA LABORATORYCLIA [id number] [address] Sodium [Moles/Vol] 135 mmol/L Low 136-144 [facility] Comment on above: Order Comment: Speci men Type: BLOOD SPECIMENOrdering Facility: [facility] Address: [address] [place] [address] Performed By: #### 2 4321-2 ####BARRAZA LABORATORYCLIA [id number] [address] Urea nitrogen [Mass/Vol] 12 mg/dL Normal 7-21 [facility] Comment on above: Order Comment: Speci men Type: BLOOD SPECIMENOrdering Facility: [facility] Address: [address] [place] [address] Performed By: #### 2 4321-2 ####[facility] LABORATORYCLIA [id number] [address] CASE MANAGEMon 12-04-2023 CASE MANAGEM HNO ID: [id number] Author: ALBA IRVIN RN Service: ? Author Type: Registered Nurse Type: Care Mgt Progress Note Filed: 12/04/2023 09:52 Note Text: CARE MANAGEMENT DISCHARGE NOTE SERVICE DATE: December 04, 2023 SERVICE TIME: 9:51 AM Admission Date: 12/03/2023 LOS: 1 day Discharge Arrangement Discharge Arrangement: Home with Home Health Services Arranged Medical Services: Skilled Home Health Care Type: Home Health Agency, Physical Therapy Provider Name: [facility] Caregiver Assessment Caregiver is ready, willing and able to meet the patient's needs as recommended by the inter-professional team: Yes Name of Caregiver: Daughter Transportation Arrangements Transportation Arrangements: Car- Daughter to transport Handoff Communication: Handoff to: Primary Care Physician Primary Care Physician Name/Phone: Dr. Deanna Hoyt [phone] Additional Information: Discharge order written for today. [facility] will be seeing the patient for Home PT with a start of care date within 24-48 hours. Notified [facility] of the patients discharge home today. Discharge Information Row Name Admission (Current) from 12/03/[address] [facility] Start of Care -- Within 24-48 hours SIGNATURE: Alba Irvin RN PATIENT NAME: Mariajose Marcelino DATE: December 04, 2023 TIME: 9:51 AM CONTACT #: [phone] [facility] CASE MANAGEM HNO ID: [id number] Author: ALBA IRVIN RN Service: ? Author Type: Registered Nurse Type: Care Mgt Progress Note Filed: 12/04/2023 09:19 Note Text: CARE MANAGEMENT PROGRESS NOTE SERVICE DATE: 12/04/2023 SERVICE TIME: 9:19 AM LOS: 1 day Needs Prior to Discharge: To Be Determined [facility] able to accept. CM department will continue to follow for DC needs. SIGNATURE: Alba Irvin RN PATIENT NAME: Mariajose Marcelino DATE: December 04, 2023 TIME: 9:19 AM PAGER/CONTACT #: [phone] [facility] CASE MGT INIT ASSESon 2023 CASE MGT INIT ASSALEISHA HNO ID: [id number] Author: ALBA IRVIN RN Service: ? Author Type: Registered Nurse Type: Care Mgt Initial Assessment Filed: 12/04/2023 09:05 Note Text: CARE MANAGEMENT: ASSESSMENT AND DISCHARGE PLAN SERVICE DATE: December 04, 2023 SERVICE TIME: 9:03 AM PCP: Deanna Aponte DO, DO Primary Contact: Extended Emergency Contact Information Primary Emergency Contact: Aniyah Zaragoza Mobile Relation: Daughter Secondary Emergency Contact: Ann Zhou [facility] Mobile Relation: Daughter Admission Status: Inpatient Insurance Provider: MEDICARE A AND B Discharge Planning requested by: Per Department Practice Potential Transition Plans Home OT/PT Advance Directives Current Advance Directive: None Shop Fitter Attempted to Assist with AD Completion: Yes Action: Patient Unwilling Current Living Arrangements and Support Lives with: Alone Type of Residence: Private Residence (Apartment or Condo) Does the patient have to climb stairs at home?: No Support: Children How do you manage to accomplish the following: Independent: Ambulation;Bathe/Shower;Dr ess;Meals/Meal Prep;Going to the bathroom;Medication Management;Transportation to appointments/community Current Services/Equipment Current Post-Acute Service(s): DME Current DME Type: Walker, Cane Discharge Planning Patient Goal(s): Be able to go home [place] of Choice Explained: [place] of Choice Given: Yes Level of Care Discussed: Home Care Are you interested in bedside delivery of your medications? No - [facility] [address] in [place] Discharge Planning Participant(s): Patient Patient/Family Comments: Caregiver Assessment: Caregiver is ready, willing and able to meet the patient's needs as recommended by the inter-professional team: Yes Name of Caregiver: Daughter Transport at Discharge: Transportation Arrangements: Car Needs Prior to Discharge: Needs Prior to Discharge: Other: See Comment (Accepting [facility] agency) Post-Acute Discharge Plan: Review of the chart and met with the patient. The patient stated she lives alone in a one story condo. PT- Home PT. Discussed PT recommendations with the patient. Referral to [facility]. CM department will continue to follow for DC needs. SIGNATURE: Alba Irvin RN PATIENT NAME: Mariajose Marcelino DATE: December 04, 2023 TIME: 9:03 AM CONTACT #: [phone] Normal [facility] CBC panel Auto (Bld)on 12-03 Erythrocyte distribution width (RBC) [Ratio] 11.9 % Normal 11.5-15.0 [facility] Comment on above: Order Comment: Janny jefferson Type: BLOOD SPECIMENOrdering Facility: [facility] Address: [address] [place] [address] Performed By: #### 5 8410-2 ####[facility] LABORATORYCLIA [id number] [place] [id number] [place] Hematocrit (Bld) [Volume fraction] 34.8 % Low 36.0-46.0 [facility] Comment on above: Order Comment: Janny jefferson Type: BLOOD SPECIMENOrdering Facility: [facility] Address: [address] [place] [id number] Performed By: #### 5 8410-2 ####BARRAZA LABORATORYCLIA [id number] [address] Hemoglobin (Bld) [Mass/Vol] 11.7 g/dL Normal 11.5-15.5 [facility] Comment on above: Order Comment: Speci men Type: BLOOD SPECIMENOrdering Facility: [facility] Address: [address] [place] [address] Performed By: #### 5 8410-2 ####BARRAZA LABORATORYCLIA [id number] [address] MCH (RBC) [Entitic mass] 30.1 pg Normal 26.0-34.0 [facility] Comment on above: Order Comment: Speci men Type: BLOOD SPECIMENOrdering Facility: [facility] Address: [address] [place] [address] Performed By: #### 5 8410-2 ####BAR[facility]ZA LABORATORYCLIA [id number] [address] MCHC (RBC) [Mass/Vol] 33.6 g/dL Normal 30.5-36.0 [facility] Comment on above: Order Comment: Speci men Type: BLOOD SPECIMENOrdering Facility: [facility] Address: [address] [place] [address] Performed By: #### 5 8410-2 ####BARRAZA LABORATORYCLIA [id number] [address] MCV (RBC) [Entitic vol] 89.5 fL Normal 80.0-100.0 [facility] Comment on above: Order Comment: Speci men Type: BLOOD SPECIMENOrdering Facility: [facility] Address: [address] [place] [address] Performed By: #### 5 8410-2 ####[facility]ZA LABORATORYCLIA [id number] [address] Nucleated RBC (Bld) [#/Vol] 10*3/uL Normal <0.01 [facility] Comment on above: Order Comment: Speci men Type: BLOOD SPECIMENOrdering Facility: [facility] Address: [address] [place] [place] [address] Performed By: #### 5 8410-2 ####[facility]ZA LABORATORYCLIA [id number] [place] [address] [place] Platelet mean volume (Bld) [Entitic vol] 11.1 fL Normal 9.0-12.7 [facility] Comment on above: Order Comment: Speci men Type: BLOOD SPECIMENOrdering Facility: [facility] Address: [address] [place] [place] [address] Performed By: #### 5 8410-2 ####[facility] LABORATORYCLIA [id number] [place] [address] [place] Platelets (Bld) [#/Vol] 230 10*3/uL Normal 150-400 [facility] Comment on above: Order Comment: Speci men Type: BLOOD SPECIMENOrdering Facility: [facility] Address: [address] [place] [place] [address] Performed By: #### 5 8410-2 ####[facility] LABORATORYCLIA [id number] [place] [address] [place] RBC (Bld) [#/Vol] 3.89 10*6/uL Low 3.90-5.20 [facility] Comment on above: Order Comment: Speci men Type: BLOOD SPECIMENOrdering Facility: [facility] Address: [address] [place] [place] [address] Performed By: #### 5 8410-2 ####[facility] LABORATORYCLIA [id number] [place] [address] [place] WBC (Bld) [#/Vol] 16.03 10*3/uL High 3.70-11.[address] [facility] Comment on above: Order Comment: Speci men Type: BLOOD SPECIMENOrdering Facility: [facility] Address: [facility] [place] [address] Performed By: #### 5 8410-2 ####BARRAZA LABORATORYCLIA [id number] [address] [place] CNCOon 12-04-2023 CNCO Letter Text Normal [facility] CNDSon 12-04-2023 [facility] HNO ID: [id number] Author: YANIRA GARCIA MD Service: Orthopaedic Surgery Author Type: Physician Dry Cure Worker Type: Discharge Summary Filed: 12/07/2023 06:11 Note Text: -- Attestation signed by Yanira Garcia MD at 12/07/2023 6:11 AM Agree with above -- DISCHARGE SUMMARY PATIENT NAME: Mariajose Marcelino ADMISSION DATE: 12/03/2023 DISCHARGE DATE: 12/04/2023 PATIENT DISCHARGE SUMMARY C O N F I D E N T I A L I N F O R M A T I O N The following is a brief overview of your hospitalization. Some of the information contained on this summary may be confidential. This information should be kept in your records and should be shared with your regular doctor. These instructions explain what you or your day care worker need to do to continue your care at home or at another healthcare facility Please go over these instructions with your nurse and day care worker. If you are not sure about something, please ask. -- -------- Highest Readmission Risk Score: 9 The 30 day readmissions risk score is derived from an internally validated risk model which evaluates patient level characteristics, utilization history, medication orders and lab results up until the day of discharge. Patients with a score of 40 or above are considered highest risk for readmission. Specific patient level drivers will be listed at the bottom of the summary. The 30 day readmissions risk score is derived from an internally validated risk model which evaluates patient level characteristics, utilization history, medication orders and lab results up until the day of discharge. Patients with a score of 40 or above are considered highest risk for readmission. 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 SUMMARY OF WHAT HAPPENED WHILE PATIENT WAS IN THE HOSPITAL: The patient was followed by Dr. Garcia in clinic for mechanical loosening of right prosthetic knee. It was determined the patient would benefit from right total knee arthroplasty revision. The procedure, its risks, benefits, and potential complications were discussed in detail prior to surgery. The patient conveyed understanding of all topics and consented to surgery. The patient underwent right total knee arthroplasty revision on 12/03/[address] Garcia. The patient tolerated the procedure well and was returned to the Post Anesthesia Care Unit in stable condition. Vital signs per PACU protocol. VTE risk assessment performed. O2 therapy monitored by Respiratory Therapy to include incentive spirometry, ADL, wound and support per physician order set postop protocol. PT and OT to evaluate and treat. IV antibiotics, antiemetics, aspirin for DVT prophylaxis and pain medication were given. The patient progressed with physical therapy. Lab values and vital signs were monitored and remained stable. The incision remained clean, dry and intact. Thigh and calf are not swollen. No signs of DVT or infection. The patient progressed with physical therapy towards goal of safety and independence. Patient was determined safe for discharge to home with home health care on 12/04/2023. TREATMENT / WOUND CARE: If you have any concerns about your wound, please contact the office. Keep wound and incision area clean and dry. You may remove your dressing on POD #7-10 (7 to 10 days after surgery). If it remains drainage-free, you may leave the dressing off, keeping the wound open to air. If there is any drainage please contact the office You may not submerge the wound under standing water for 6 weeks time after surgery (i.e. no baths, no hot tubs, no swimming pools). Do not rub the wound, but rather pat dry. If you have non-absorbable sutures in place, these will be taken out on your 1st follow-up appointment. Observe the wound for signs of infection, including increased redness, swelling, or persistent drainage around the incision site. It is normal for your wound to be warmer immed (more content not included)... Normal [facility] THERAPY NT 12-04-2023 THERAPY NT HNO ID: [id number] Author: GUADAULPE COREAS OT/L Service: Occupational Therapy Author Type: Occupational Therapist Type: Therapy (PT/OT/Speech/Resp) Filed: 12/04/2023 09:56 Note Text: -- Summary: OT Evaluation -- Occupational Therapy Evaluation Summary SERVICE DATE: 12/04/2023 SERVICE TIME: 909 to 939 ROOM: [id number] OT 6 Clicks Score: 21 Total Joint Replacement Discharge Readiness: Cleared from Occupational Therapy DISCHARGE RECOMMENDATIONS Home OT Recommended Discharge Disposition Comments: to maximize safety and independence with ADLs/IADLs, functional mobility and transfers s/p R TKA Anticipated Discharge Needs: Physical Assist at Home, Supervision at Home Physical Assist at Home for: Cleaning, Laundry, Meals, Shopping, Transportation Supervision at Home due to: Other: See Comment (initially for optimal safety) Recommended Discharge Equipment: No equipment needs anticipated ASSESSMENT Response to Therapy Interventions: Good Participation in Activities, On-Track to Achieve Discharge Goals Pt is A+Ox4; candis good safety awareness throughout. Currently SBA-CGA for all self cares and mobility with use of FWW. Anticipate safe d/c home with assistance from pt's dtr for IADLs initially PRECAUTIONS Fall Risk, Lines/Tubes/Drains, Total Knee Replacement, Weight Bearing Restrictions Right Lower Extremity Weight Bearing Status: WBAT CURRENT HOSPITAL COURSE post REVISION JOINT TOTAL KNEE FEMORAL AND ENTIRE TIBIAL COMPONENT (Right) Relevant Past Medical History: Hypothyroidism, Asthma, HTN, Hyperlipidemia, R TKA (2019) HOME LIVING Patient Lives With: Self/Alone Assistance Available: PRN (4 daughters to alternate assist) Entry To Home: No Stairs Number Of Stairs To Bed/Bath: 0 Tub/Shower Type: walk in shower with lip + built in seat Laundry: first floor; family to assist initially Equipment Owned: Cane, Walker- Wheeled, Grab Bars- Shower PRIOR FUNCTIONAL LEVEL Within Functional Limits Pt reports independence with ADLs/IADLs, no use of AD, + 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 Baseline Cognition: Oriented to self, Oriented to place, Oriented to time, Oriented to situation SUBJECTIVE RN cleared to work with pt; pt agreeable COGNITION Orientation Deficits: (A+Ox4) Responsiveness: Alert, Awake Follows Commands: 3-step Commands THERAPY DIAGNOSIS Reduced mobility-other, Decreased activities of daily living (ADL) TREATMENT INTERVENTIONS Evaluation, Self Usp Management (95673) Timed Code Treatment (minutes): 15 Skilled Treatment Time (minutes): 30 TRAINING AND EDUCATION PROVIDED Activity Adaptation/Compensatory Strategies, Adaptive Equipment/DME, Assistive Device Use, Bed Mobility, Benefits of In-Hospital Mobility, Discharge Planning, Expected Functional Level, Functional Mobility Involving ADLs, Grooming Tasks, Edema Management, Home Set-up/Modifications, IADLs/Home Management, Lower Extremity Bathing, Lower Extremity Dressing, Pain Management, Positioning, Precautions/Restrictions, Role of Occupational Therapy, Safety/Judgment, Standing Balance to Improve [place] with ADLs/Self-Care, Transfer - Bed to Chair, Transfer - Shower, Transfer - Sit to Stand Education and instruction on: -- Role of OT and POC -- Total Knee Precautions and WBAT, instructed on use of wheeled walker at all times until home PT progresses to crutches or cane. -- Hospital and home safety. Pt instructed on having areas free of clutter, removal of throw rugs and areas well lit. Pt instructed on wearing appropriate footwear in their home to reduce risk of falls. Pt instructed on using call light for assistance to bathroom and for functional transfers while in hospital to reduce risk of falls. -- Bed mobility. Instructed patient in elevation of surgical LE for edema management and comfort with proper pillow placement and nothing placed directly behind surgical knee. --ADL techniques. Grooming: instructed pt on safe/proper WW management up to sink and UE support on sink top prn for increased safety and stability in standing during grooming. Bathing AND Dressing: Completion of majority of tasks from seated position and only standing for necessary components. Use of loose fitting clothing. Threading surgical LE into underwear/pants first and opposite for doffing. All education given for increased ease, safety, energy conservation and independence of self care tasks. -- IADL technique. Instructed patient on use of back pack, bag or walker bag if needed to maintain independence in IADLs as well as keep hands free for mobility device. Pt instructed on kitchen mobility and simple meal preparation. -- Bathroom mobility and transfers. Assessed need for DME (more content not included)... [facility] THERAPY NT HNO ID: [id number] Author: ETTA BARAHONA, PT Service: Physical Therapy Author Type: Physical Therapist Type: Therapy (PT/OT/Speech/Resp) Filed: 12/04/2023 09:20 Note Text: -- Summary: PT eval -- Physical Therapy Evaluation Summary SERVICE DATE: 12/04/2023 SERVICE TIME: 0757 to 0840 ROOM: [place] [address] PT 6 Clicks Score: 19 Total Joint Replacement Discharge Readiness: Cleared from Physical Therapy DISCHARGE RECOMMENDATIONS Home PT Recommended Discharge Disposition Comments: For progression of RLE strengthening and flexibility post TKA Recommended Discharge Equipment: No equipment needs anticipated ASSESSMENT Response to Therapy Interventions: Good Participation in Activities, On-Track to Achieve Discharge Goals Pt is CGA to SBA with activity, AANDO x 3, follows cues appropriately, vitals within safe limts, participates without adverse effects. Pt is safe for discharge home. PRECAUTIONS Fall Risk, Lines/Tubes/Drains, Total Knee Replacement, Weight Bearing Restrictions Right Lower Extremity Weight Bearing Status: WBAT CURRENT HOSPITAL COURSE post REVISION JOINT TOTAL KNEE FEMORAL AND ENTIRE TIBIAL COMPONENT (Right) Relevant Past Medical History: Hypothyroidism, Asthma, HTN, Hyperlipidemia, R TKA (2019) HOME LIVING Patient Lives With: Self/Alone Assistance Available: PRN (4 daughters to alternate assist) Entry To Home: No Stairs Number Of Stairs To Bed/Bath: 0 Tub/Shower Type: walk in shower with lip Laundry: first floor Equipment Owned: Cane, Walker- Wheeled, Grab Bars- Shower PRIOR FUNCTIONAL LEVEL Within Functional Limits Pt reports independence with ADLs/IADLs, no use of AD, + 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 SUBJECTIVE Pt agreeable to PT, ok per nursing to treat. THERAPY DIAGNOSIS Difficulty walking-musculoskeletal TREATMENT INTERVENTIONS Evaluation, Therapeutic Activity (69169), Gait Training (32252) Timed Code Treatment (minutes): 28 Skilled Treatment Time (minutes): 43 $ Evaluation-Low (29106) Billed Units: 1 unit Therapeutic Activity (64816) Treatment Minutes: 14 $ Therapeutic Activity (41082) Billed Units: 1 unit Gait Training (62176) Treatment Minutes: 14 $ Gait Training (96689) Billed Units: 1 unit TRAINING AND EDUCATION PROVIDED Assistive Device Use, Bed Mobility, Benefits of In-Hospital Mobility, Discharge Planning, Disease Specific Education, Edema Management, Equipment, Expected Functional Level, Falls Prevention, Gait Pattern, Reduction of Deviations, Home Safety, Modalities, Positioning, Precautions/Restrictions, Role of Physical Therapy, Transfers, Treatment Protocol, Car Transfers, Standing Balance THERAPEUTIC SKILLS USED Activity Dosing, Assessment of Tolerance Including Vitals Response to Activity, Cuing Tactile, Cues for Sequencing/Proper Technique for Activity, Cuing Verbal, Cuing Visual, Physical Assist, Muscle Activation Facilitation, Postural Alignment Correction FUNCTIONAL STATUS Bed Mobility Supine To Sit: Contact Guard Assistance HOB flat, use of bed rails, assist for safety wtih trunk management, increased time to complete Sit to Supine: Additional Information in chair upon exit Scooting: Stand By Assistance Transfers Sit To Stand: Contact Guard Assistance cues for proper hand placement, X 2 trials Stand To Sit: Contact Guard Assistance cues for safe approach to surface, proper hand placement, controlled descent to sit Bed to Chair Stand By Assistance Bed To Chair Transfer Type: Stepping Bed To Chair Transfer Equipment: Wheeled Walker cues for safe alignment to chair Gait Contact Guard Assistance, Stand By Assistance, Additional Information Pt instructed in step to pattern with initial cues for proper AD placement, sequencing and increased use of UEs for support, steady throughout, progression to SBA Gait Device: Wheeled Walker General Deviations/Observations: Ann decreased, Lateral sway increased Gait Distance (feet): 50 Gait Deviations Right Lower Extremity: Stance time decreased, Weight bearing decreased Stairs Additional Information N/A ROM ROM Limitation Comments: R knee AROM to approx 60-70 degrees STRENGTH Right Lower Extremity Strength Comments: 3-/5 except ankle DF Left Lower Extremity Strength Comments: WFLs BALANCE Static Sitting Balance: Good Dynamic Sitting Balance: Good Static Standing Balance: Fair Dynamic Standing Balance: Fair GOALS Patient will demonstrate progress with functional mobility to allow safe discharge to home with available support and/or physical assistance., Patient will demonstrate progress to optimize functional mobility, maximize activity tolerance and endurance to maximize function upon discharge. Transfer S (more content not included)... [facility] ANES POSTPROC EVALon 024 ANES POSTPROC EVAL HNO ID: [id number] Author: CONCEPCION GUO MD Service: Anesthesiology Author Type: Anesthesiologist Type: Anesthesia Postprocedure Evaluation Filed: 12/03/2023 15:50 Note Text: POST ANESTHESIA EVALUATION NOTE : 1955 Procedure Summary Date: 12/03/23 Room / Location: PA OR / PA OR Anesthesia Start: 1106 Anesthesia Stop: 1507 Procedure: REVISION JOINT TOTAL KNEE FEMORAL AND ENTIRE TIBIAL COMPONENT (Right: Knee) Diagnosis: Mechanical loosening of prosthetic knee, 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 devices, implants and grafts, initial encounter (HCC) (Mechanical loosening of prosthetic knee, subsequent encounter [T84.038D, Z96.659]) (Pain due to internal orthopedic prosthetic devices, implants and grafts, initial encounter (HCC) [T84.84XA]) Surgeons: Yanira Garcia MD Responsible Provider: Concepcion Guo MD Anesthesia Type: general ASA Status: 2 Anesthesia Type: general Airway Type: ETT Last Vitals Vitals Value Taken Time BP 152/72 12/03/23 1545 Temp 36.5 ?C (97.7 ?F) 12/03/23 1505 Pulse 77 12/03/23 1549 Resp 14 12/03/23 1549 SpO2 93 % 12/03/23 1549 Vitals shown include unfiled device data. Post Anesthesia Patient Status Patient Evaluation: PACU. PACU/ICU Patient Condition: stable. Anticipated Disposition: inpatient floor planned admission. Neurological Status: aware and responsive. Pulmonary Status: breathing comfortably on room air Airway Control: returned to baseline unsupported. Cardiovascular Status: stable. Pain Management: clinically adequate - multimodal analgesia pain management approach Postoperative Hydration: acceptable. Intraoperative Events: no significant anesthesia events Post Operative Nausea/Vomiting Status: no significant post operative nausea or vomiting Recommendation: continue current plan of care and further care per PACU/ICU/floor team. Anesthesia Observations No notable events were associated with this procedure. Documented by Valentino Osorio SRNA 12/03/2023 3:07 PM EDT SIGNATURE: Concepcion Guo MD PATIENT NAME: Mariajose Marcelino DATE: December 03, 2023 TIME: 3:50 PM CSN: [id number] [facility] ANES PRE-OPon 12-03-2023 ANES PRE-OP HNO ID: [id number] Author: CONCEPCION GUO MD Service: Anesthesiology Author Type: Anesthesiologist Type: Anesthesia Preprocedure Evaluation Filed: 12/03/2023 08:52 Note Text: ANESTHESIOLOGY DAY OF SURGERY NOTE : 1955 Procedure Information Date/Time: 12/03/23920 Procedure: REVISION JOINT TOTAL KNEE FEMORAL AND ENTIRE TIBIAL COMPONENT (Right: Knee) Location: PA OR / PA OR Surgeons: Yanira Garcia MD Estimated body mass index is 28.71 kg/m? as calculated from the following: Height as of this encounter: 152.4 cm (5'). Weight as of this encounter: 66.7 kg (147 lb). Most recent hematocrit and potassium results: Hematocrit 42.0 11/12/2023 Potassium 4.5 11/13/2023 Relevant Problems CARDIO (+) Essential hypertension ENDO (+) Acquired hypothyroidism PULMONARY (+) Mild intermittent asthma without complication I - PHYSICAL EVALUATION AIRWAY Patient intubated: No. Tracheostomy tube not present Mallampati: II. TM distance: <3 FB. Neck ROM: full ROM without neurological symptoms. Mouth opening: adequate. Short neck: no. Thick neck: no DENTAL Dental findings: teeth intact. Additional exam findings: yes. CARDIOVASCULAR Rate: normal PULMONARY Breath sounds clear to auscultation. II - ANESTHESIA PLAN ASA Score: 2 Anesthetic Plan: general Airway type: ETT The patient is not a current smoker. NPO Status: adequate Beta Allegra Monitoring Plan Monitoring plan: Standard ASA. Post Procedure Analgesic Plan Postoperative analgesic plan: parenteral or oral opioids and multimodal analgesia. Informed Consent Anesthetic risks, benefits, alternatives, personnel and consent discussed: yes. Patient / Responsible Democrat agrees to proceed: yes Patient / Surrogate agrees to blood products: yes DNR status not reviewed with patient and/or family prior to surgery. Significant changes in the patient condition since the History and Physical, not otherwise documented in primary service progress note: no. Potential Anesthesia issues that may suggest increased risk of complications or contraindication to planned procedure: none. Vitals Value Taken Time BP 169/76 12/03/23 0817 Pulse Resp 18 12/03/23 0817 Temp 37.3 ?C (99.1 ?F) 12/03/23 08 SpO2 99 % 12/03/23816 Facility-Administered Medications as of 12/03/2023 Medication Dose Route Frequency lidocaine (PF) 10 mg/mL (1 %) 1-2 mg injection (XYLOCAINE) 0.1-0.2 mL INTRADERMAL PRN lactated ringers iv infusion 5-30 mL/hr INTRAVENOUS CONTINUOUS NaCl 0.9% iv flush bag 20 mL INTRAVENOUS PRN ceFAZolin iv piggyback 2 g in D5W (iso-osmotic) 100 mL (ANCEF) 2 g INTRAVENOUS Pre-Op Once tranexamic acid (CYKLOKAPRON) in NaCl 0.7% 1,000 mg 100 mL 1,000 mg INTRAVENOUS Pre-Op Once tranexamic acid (CYKLOKAPRON) in NaCl 0.7% 1,000 mg 100 mL 1,000 mg INTRAVENOUS ONCE [COMPLETED] ropivacaine 2.46 mg/mL-EPINEPHrine 0.005 mg/mL-cloNIDine 0.0008 mg/mL-ketorolac 0.3 mg/mL 50 mL injection (R.E.C.K.) 50 mL periarticular ONCE [COMPLETED] acetaminophen 1,000 mg tab(s) (TYLENOL) 1,000 mg ORAL Pre-Op Once [COMPLETED] celecoxib 200 mg cap(s) (CeleBREX) 200 mg ORAL Pre-Op Once [COMPLETED] oxyCODONE ER 10 mg tab(s) (OxyCONTIN) 10 mg ORAL Pre-Op Once scopolamine 1 mg over 3 days 1 Patch (TRANSDERM-SCOP) 1 Patch TRANSDERMAL Pre-Op Once [COMPLETED] promethazine 12.5 mg tab(s) (PHENERGAN) 12.5 mg ORAL Pre-Op Once [COMPLETED] famotidine 20 mg injection (PEPCID) 20 mg INTRAVENOUS ONCE midazolam (PF) 1-2 mg injection (VERSED) 1-2 mg INTRAVENOUS ONCE [COMPLETED] cyclobenzaprine 10 mg tab(s) (FLEXERIL) 10 mg ORAL ONCE Outpatient Medications as of 12/03/2023 Medication Sig Lactobacillus acidophilus (PROBIOTIC ORAL) Take 1 capsule by mouth once daily. rosuvastatin (CRESTOR) 40 mg tablet Take 40 mg by mouth once daily. levothyroxine (SYNTHROID) 50 mcg tablet Take 1 tablet by mouth daily before breakfast. montelukast (SINGULAIR) 10 mg tablet Take 1 tablet by mouth daily at bedtime. clindamycin (CLEOCIN) 300 mg capsule Take two capsules by mouth one hour prior to dental appointment. cholecalciferol, vitamin D3, (VITAMIN D3 ORAL) Take 1 capsule by mouth once daily. albuterol sulfate (PROAIR HFA INHALATION) Inhale 1 Puff as instructed every 4 hours as needed (wheezing sob). estradiol (ESTRACE) 0.01 % (0.1 mg/gram) vaginal cream Use 1 g vaginally twice a week. therapeutic multivitamin (THERA VITAMIN) tablet Take 1 tablet by mouth once daily. I have interviewed and examined the patient. I have reviewed the medical record and/or the pre-anesthesia evaluation, pertinent labs, and test results. This contains updated information obtained within 48 hours of Surgery/Procedure. SIGNATURE: Concepcion Guo MD PATIENT NAME: Mariajose Marcelino DATE: December 03, 2023 TIME: 8:51 AM CSN: [id number] [facility] BRIEF OP NOTon 12-03-2023 BRIEF OP NOT HNO ID: [id number] Author: YANIRA GARCIA MD Service: Orthopaedic Surgery Author Type: Physician Type: Brief Op Note Filed: 12/03/2023 14:44 Note Text: TOTAL KNEE ARTHROPLASTY BRIEF OPERATIVE / PROCEDURE NOTE LOG ID: [id number] Surgery/Procedure Date: 12/03/2023 Incision/Procedure Start Time: 11:43 AM Incision Close/Procedure End Time: Approximately 1450 Surgeon(s)/Proceduralist(s ) and Dry Cure Worker(s): Surgeon(s) and Role: * Yanira Garcia MD - Primary Physician Dry Cure Worker: Vidal Schmitt PA-C; Patito Chua PA-C Procedure(s): Procedure(s) (LRB): REVISION JOINT TOTAL KNEE FEMORAL AND ENTIRE TIBIAL COMPONENT (Right) Anesthesia: Choice - Anesthesia Consult Peripheral Block Type: Saphenous/Adductor Approach: Median parapatellar Findings: Loose femoral tibial spacer components and loose patellar button with minimal bone remaining Estimated Blood Loss: 50 mls Specimens: Explanted tibia/femur/patella Complications: None Closure Technique: Primary Total Joint Arthroplasty (TJA) Surgical Risk Procedure: Not on file Date assessed: Not on file No data to display Implant: Implant Name Type Inv. Item Serial No. Event Planning Intern Lot No. LRB No. Used Action [id number] IMPLANT - [id number] Implant [id number] IMPLANT KEEGAN [id number] Right 2 Implanted Bearing Surface: Fixed Fixation: Cemented SSI Risk Factors: Previous surgery Constraint: Posterior Stabilized Other: Revision Femur selected for bypass previous bone defects Pre-Op/Pre-Procedure Diagnosis: Mechanical loosening of prosthetic knee, subsequent encounter [T84.038D, Z96.659] Pain due to internal orthopedic prosthetic devices, implants and grafts, initial encounter ([facility]) [T84.84XA] Post-Op/Post-Procedure Diagnosis: Mechanical loosening of prosthetic knee, subsequent encounter [T84.038D, Z96.659] Pain due to internal orthopedic prosthetic devices, implants and grafts, initial encounter ([facility]) [T84.84XA] Weight Bearing Status: Weight Bearing As Tolerated SIGNATURE: Yanira Garcia MD PATIENT NAME: Mariajose Marcelino DATE: December 03, 2023 TIME: 2:42 PM [facility] Hematocrit Auto (Bld) [Volum e fraction]on 12-03-2023 Hematocrit (Bld) [Volume fraction] 38.3 % Normal 36.0-46.0 [facility] Comment on above: Order Comment: Janny jefferson Type: BLOOD SPECIMENOrdering Facility: [facility] Address: [address] [place] [address] Performed By: #### 4 544-3, 718-7 ####[facility] [id number] [address] OF [facility] Hgb Bld-mCncon 12-03-2023 Hemoglobin (Bld) [Mass/Vol] 12.9 g/dL Normal 11.5-15.5 [facility] Comment on above: Order Comment: Janny jefferson Type: BLOOD SPECIMENOrdering Facility: [facility] Address: [address] [place] [address] Performed By: #### 4 544-3 718-7 ####[facility] [id number] [address] OF [facility] SURGICAL PATHOLOGYon 024 CASE REPORT Normal [facility] Comment on above: Order Comment: Speci men Type: DEVICE SPECIMENOrdering Facility: [facility] Address: [address] [place] [address] Result Comment: Surg ica Pathology Report Case: [id number] Authorizing Provider: Yanira Garcia MD Collected: 12/03/2023 02:02 PM Ordering Location: [facility] Surgery Received: 12/03/2023 03:53 PM Pathologist: Carlos Carrillo MD Specimen: Hardware/Device/Foreign Body, Right Knee Explants Performed By: #### S ####[facility] [id number] [address] OF [facility] CLINICAL HISTORY Normal [facility] Comment on above: Order Comment: Janny jefferson Type: DEVICE SPECIMENOrdering Facility: [facility] Address: [address] [place] [address] Result Comment: Pre- op diagnosis: Mechanical loosening of prosthetic knee, subsequent encounter [T84.038D, Z96.659] Pain due to internal orthopedic prosthetic devices, implants and grafts, initial encounter ([facility]) [T84.84XA] Performed By: #### S ####[facility] LABCLIA [id number] [address] FINAL DIAGNOSIS Normal [facility] Comment on above: Order Comment: Janny jefferson Type: DEVICE SPECIMENOrdering Facility: [facility] Address: [address] [place] [address] Result Comment: A. O rthopedic hardware, right knee, removal: -Orthopedic hardware components of a knee (Gross examination only). ACV/OLS Performed By: #### S ####[facility] LABCLIA [id number] [address] OF [place] FINAL PERFORMING LAB Normal [facility] Comment on above: Order Comment: Janny jefferson Type: DEVICE SPECIMENOrdering Facility: [facility] Address: [address] [place] [address] Result Comment: Diag nostic interpretation performed at [facility], [address] [place] [address] CLIA# [id number] Ratoprinter: Cuauhtemoc Nichols M.D. Performed By: #### S ####[facility] LABIA [id number] [place] [address] [place] GROSS DESCRIPTION Normal [facility] Comment on above: Order Comment: Speci men Type: DEVICE SPECIMENOrdering Facility: [facility] Address: [address] [place] [address] Result Comment: A. H ardware/Device/Foreign Body Received fresh labeled right knee explants is a metallic femoral component with mild scratches measuring 6.5 x 6 x 4 cm (inscribed [id number]). Bone cement is attached. Additionally, there is a polyethylene articular insert with scratches and attached bone cement measuring 6.5 x 6 x 4.2 cm. Lastly, a patellar component with attached bone cement is also received measuring 3.5 x 3.5 x 1.5 cm. No soft tissue is present. No sections are submitted. Gross diagnosis only. The specimen is reviewed with Dr. Jaramillo. Gross examination performed at [facility], [address] [place] [address] OLS December 04, 2023 9:34 AM Performed By: #### S ####[facility] [id number] [place] [address] [place] XR KNEE 2V AP/LAT RTon 12-02 XR KNEE 2V AP/LAT RT * * *Final Report* * * DATE OF EXAM: Dec 03 2023 3:42PM MDX 5207 - XR KNEE 2V AP/LAT RT / PROCEDURE REASON: Post Operative Assessment * * * * Physician Interpretation * * * * EXAMINATION / TECHNIQUE: XR KNEE 2V AP/LAT RT HISTORY: Post-op right knee Post Operative Assessment Post Operative Assessment COMPARISON: 09/04/2023 RESULT: Interval changes of revision right total knee arthroplasty with long femoral and tibial stem components with orthopedic hardware in standard position and alignment. No periprosthetic lucency or fracture. IMPRESSION: Status post revised right total knee arthroplasty without hardware-related complication. Milieu Coordinator: PSCB Transcribe Date/Time: Dec 03 2023 4:26P Dictated by : NYDIA HUFFMAN MD This examination was interpreted and the report reviewed and electronically signed by: NYDIA HUFFMAN MD on Dec 03 2023 4:27PM EST [id number] Normal [facility] Basic metabolic 2000 panelon 11-13-2023 Anion gap [Moles/Vol] 4 mmol/L Low 5-16 [facility] Comment on above: Order Comment: Speci men Type: BLOOD SPECIMEN [facility] Address: [address] [place] [address] Performed By: #### 2 4321-2 #### [facility] CLIA [id number] [address] [place] [address] [place] Calcium [Mass/Vol] 9.8 mg/dL Normal 8.5-10.5 [facility] Comment on above: Order Comment: Speci men Type: BLOOD SPECIMEN [facility] Address: [address] [place] [address] Performed By: #### 2 4321-2 #### [facility] CLIA [id number] [address] [place] [address] [place] Chloride [Moles/Vol] 109 mmol/L High 98-107 [facility] Comment on above: Order Comment: Speci men Type: BLOOD SPECIMEN [facility] Address: [address] [place] [address] Performed By: #### 2 4321-2 #### [facility] CLIA [id number] [address] [place], [place] [id number] [place] CO2 [Moles/Vol] 30 mmol/L Normal 21-32 [facility] Comment on above: Order Comment: Speci men Type: BLOOD SPECIMEN [facility] Address: [address] [place] [address] Performed By: #### 2 4321-2 #### [facility] CLIA [id number] OF [place] Creatinine [Mass/Vol] 0.70 mg/dL Normal 0.51-0.95 [facility] Comment on above: Order Comment: Janny jefferson Type: BLOOD SPECIMEN [facility] Address: [address] [place] [address] Result Comment: Heena ents receiving either N-Acetylcysteine (NAC) or Metamizole prior to venipuncture, may have falsely depressed results. Performed By: #### 2 4321-2 #### [facility] CLIA [id number] [address] [place] [address] [facility] [place] Creatinine and Glomerular filtration rate.predicted panel (S/P/Bld) 94 mL/min/1.73m??? Normal >=60 [facility] Comment on above: Order Comment: Janny jefferson Type: BLOOD SPECIMEN [facility] Address: [address] [place] [address] Result Comment: Beena mated Glomerular Filtration Rate (eGFR) is calculated using the 2020 CKD-EPI creatinine equation. This equation utilizes serum creatinine, sex, and age as parameters. The creatinine assay has traceable calibration to isotope dilution-mass spectrometry. Refer to KDIGO guidelines for clinical interpretation. In patients with unstable renal function, e.g. those with acute kidney injury, the eGFR may not accurately reflect actual GFR. Performed By: #### 2 4321-2 #### [facility] CLIA [id number] [address] [place] [address] [place] Glucose [Mass/Vol] 93 mg/dL Normal 70-100 [facility] Comment on above: Order Comment: Janny jefferson Type: BLOOD SPECIMEN Ordering Facility: [facility] Address: [address] [place] [address] Result Comment: The [place] Diabetes Association (ADA) provides guidance for cutoff values for fasting glucose and random glucose. The ADA defines fasting as no caloric intake for at least 8 hours. Fasting plasma glucose results between 100 to 125 mg/dL indicate increased risk for diabetes (prediabetes). Fasting plasma glucose results greater than or equal to 126 mg/dL meet the criteria for diagnosis of diabetes. In the absence of unequivocal hyperglycemia, results should be confirmed by repeat testing. In a patient with classic symptoms of hyperglycemia or hyperglycemic crisis, random plasma glucose results greater than or equal to 200 mg/dL meet the criteria for diagnosis of diabetes. Reference: Standards of Medical Care in Diabetes 2016, [place] [employer]. Diabetes Care. 2016.39(Suppl 1). Results may be falsely elevated after the administration of Sulfapyridine. Results may be falsely depressed after the administration of Sulfasalazine. Performed By: #### 2 4321-2 #### [facility] CLIA [id number] [address] [place] [address] [place] Potassium [Moles/Vol] 4.5 mmol/L Normal 3.5-5.1 [facility] Comment on above: Order Comment: Speci ronny Type: BLOOD SPECIMEN Ordering Facility: [facility] Address: [address] [place] [address] Performed By: #### 2 4321-2 #### [facility] CLIA [id number] [address] [place] [address] [place] Sodium [Moles/Vol] 143 mmol/L Normal 136-145 [facility] Comment on above: Order Comment: Janny jefferson Type: BLOOD SPECIMEN Ordering Facility: [facility] Address: [address] [place] [address] Performed By: #### 2 4321-2 #### [facility] CLIA [id number] [address] [place] [address] [place] Urea nitrogen [Mass/Vol] 10 mg/dL Normal 7-26 [facility] Comment on above: Order Comment: Abbei ronny Type: BLOOD SPECIMEN Ordering Facility: [facility] Address: [address] [place] [address] Performed By: #### 2 4321-2 #### [facility] CLIA [id number] [address] [place] [address] [place] CBC W Auto Differential pane l (Bld)on 11-12-2023 Basophils (Bld) [#/Vol] 0.03 10*3/uL <0.11 k/uL [facility] Basophils/100 WBC (Bld) 0.6 % [facility] Differential cell count method Nom (Bld) Auto [facility] Eosinophils (Bld) [#/Vol] 0.13 10*3/uL <0.46 k/uL [facility] Eosinophils/100 WBC (Bld) 2.5 % [facility] Erythrocyte distribution width (RBC) [Ratio] 12.2 % 11.5 - 15.0 % [facility] Hematocrit (Bld) [Volume fraction] 42.0 % 36.0 - 46.0 % [facility] Hemoglobin (Bld) [Mass/Vol] 13.7 g/dL 11.5 - 15.5 g/dL [facility] Immature granulocytes (Bld) [#/Vol] <0.10 k/uL [facility] Immature granulocytes/100 WBC (Bld) 0.2 % [facility] Lymphocytes (Bld) [#/Vol] 1.74 10*3/uL 1.00 - 4.00 k/uL [facility] Lymphocytes/100 WBC (Bld) 33.7 % [facility] MCH (RBC) [Entitic mass] 30.4 pg 26.0 - 34.0 pg [facility] MCHC (RBC) [Mass/Vol] 32.6 g/dL 30.5 - 36.0 g/dL [facility] MCV (RBC) [Entitic vol] 93.3 fL 80.0 - 100.0 fL [facility] Monocytes (Bld) [#/Vol] 0.50 10*3/uL <0.87 k/uL [facility] Monocytes/100 WBC (Bld) 9.7 % [facility] Neutrophils (Bld) [#/Vol] 2.76 10*3/uL 1.45 - 7.50 k/uL [facility] Neutrophils/100 WBC (Bld) 53.3 % [facility] Nucleated RBC (Bld) [#/Vol] <0.01 k/uL [facility] Nucleated RBC/100 WBC (Bld) [Ratio] 0.0 /100 WBC [facility] Platelet mean volume (Bld) [Entitic vol] 11.7 fL 9.0 - 12.7 fL [facility] Platelets (Bld) [#/Vol] 252 10*3/uL 150 - 400 k/uL [facility] RBC (Bld) [#/Vol] 4.50 10*6/uL 3.90 - 5.20 m/uL [facility] WBC (Bld) [#/Vol] 5.17 10*3/uL 3.70 - 11.00 k/uL [facility] Comprehensive metabolic 2000 panelon 11-12-2023 Albumin [Mass/Vol] 4.2 g/dL 3.9 - 4.9 g/dL [facility] ALP [Catalytic activity/Vol] 97 U/L 34 - 123 U/L [facility] ALT [Catalytic activity/Vol] 22 U/L 7 - 38 U/L [facility] Anion gap [Moles/Vol] 8 mmol/L Low 9 - 18 mmol/L [facility] AST [Catalytic activity/Vol] 31 U/L 13 - 35 U/L [facility] Bilirubin [Mass/Vol] 0.3 mg/dL 0.2 - 1 .3 mg/dL [facility] Calcium [Mass/Vol] 10.1 mg/dL 8.5 - 10. 2 mg/dL [facility] Chloride [Moles/Vol] 106 mmol/L High 97 - 10 5 mmol/L [facility] CO2 [Moles/Vol] 29 mmol/L 22 - 30 mmol/L [facility] Creatinine [Mass/Vol] 0.64 mg/dL 0.58 - 0.96 mg/dL [facility] Estimated Glomerular Filtration Rate 96 mL/min/1.73m >=60 mL/min/1.7 3m [facility] Glucose [Mass/Vol] 114 mg/dL High 74 - 99 mg/dL [facility] Potassium [Moles/Vol] 5.3 mmol/L High 3.7 - 5.1 mmol/L [facility] Protein [Mass/Vol] 6.7 g/dL 6.3 - 8.0 g/dL [facility] Sodium [Moles/Vol] 143 mmol/L 136 - 144 mmol/L [facility] Urea nitrogen [Mass/Vol] 12 mg/dL 7 - 21 mg/dL [facility] FERRITINon 11-12-2023 Ferritin [Mass/Vol] 67.4 ng/mL 14.7 - 205.1 ng/mL [facility] Iron and Iron binding capaci ty panelon 11-12-2023 Iron [Mass/Vol] 50 ug/dL 41 - 186 ug/dL [facility] Iron binding capacity [Mass/Vol] 272 ug/dL 232 - 386 ug/dL [facility] Iron/TIBC [Molar ratio] 18.4 % 15.0 - 57.0 % [facility] BONE 3 PHASEon 09-16-2023 NM BONE 3 PHASE * * *Final Report* * * DATE OF EXAM: Sep 16 2023 11:39AM RHN 0009 - NM BONE 3 PHASE / PROCEDURE REASON: Pain due to internal orthopedic prosthetic devices, implants and grafts, initial * * * * Physician Interpretation * * * * EXAM: THREE-PHASE BONE SCAN HISTORY: Pain due to internal orthopedic prosthetic devices, implants and grafts, initial encounter. History of right knee arthroplasty. TECHNIQUE: 24.0 millicuries of Tc-99m MDP administered IV. Three-phase bone scan with attention to the right knee. Arterial flow planar images obtained immediately after tracer injection, blood pool planar images obtained around 3 to 5 minutes, and delayed planar images obtained after 3-4 hours. Followed by whole-body images. CORRELATION: Knee radiographs 09/04/2023 RESULTS: Right knee arthroplasty. Arterial Flow: Asymmetric radiotracer distribution with increased uptake in the right distal femur and the proximal right tibia. Mild uptake in in the left distal femur Blood Pool: Hyperemia with increased activity at the right knee along the femoral and tibial aspects. Delayed: Abnormal tracer uptake in the right femoral condyle and medial/lateral right tibial plateau. There is mild uptake in the left femoral condyle. Activity in the shoulders, sternoclavicular joints, cervical spine, thoracolumbar spine, elbows, wrists, hips, left knee, ankles and feet are likely degenerative/arthritic changes. IMPRESSION: RIGHT KNEE PROSTHESIS: HYPEREMIA WITH INCREASED UPTAKE ALONG THE RIGHT FEMORAL AND TIBIAL ASPECTS. FINDINGS SUGGESTIVE OF PROSTHETIC LOOSENING IN THE APPROPRIATE CLINICAL SETTING Milieu Coordinator: PSCCornelio Transcribe Date/Time: Sep 16 2023 11:41A Dictated by : JAMI BLACK MD This examination was interpreted and the report reviewed and electronically signed by: SREE CABA MD on Sep 16 2023 3:38PM EST [id number] [facility] NM Bone 3 Phase Viewson 08-28 [facility] XR Knee AP and Lateral and M erchantson 09-07-2023 IMPRESSION: Nondisplaced right patellar fracture along lateral bone-arthroplasty interface. 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 Milieu Coordinator: JANAE Transcribe Date/Time: Sep 07 2023 8:48A Dictated by : MARIA DEL CARMEN FROST MD This examination was interpreted and the report reviewed and electronically signed by: MARIA DEL CARMEN FROST MD on Sep 07 2023 8:54AM EST [facility] * * *Final Report* * * DATE OF EXAM: Sep 04 2023 11:16AM MDO 5209 - XR KNEE 3V AP/LAT/MERCHANT RT / PROCEDURE REASON: M25.561-Right knee pain, unspecified chronicity * * * * Physician Interpretation * * * * EXAMINATION / TECHNIQUE: XR KNEE 3V AP/LAT/MERCHANT RT PATIENT/TECHNOLOGIST PROVIDED HISTORY: PAIN IN RIGHT KNEE CLINICAL INFORMATION ( PROVIDED BY ORDERING CLINICIAN) : Right knee pain, unspecified chronicity COMPARISON: 03/09/2023 RESULT: New/increased lucency in the patella along the lateral bone-arthroplasty interface suspicious for nondisplaced fracture. Otherwise stable appearance of the right knee arthroplasty including stable 1 mm lucency between the medial tibial plateau cement-bone interface. Small suprapatellar effusion. Patellofemoral predominant degenerative changes noted in the left knee, similar prior. [facility] Provider, Shefali Joe [place] - 09/07/2023 * * *Final Report* * * DATE OF EXAM: Sep 04 2023 11:16AM O 5209 - XR KNEE 3V AP/LAT/MERCHANT RT / PROCEDURE REASON: M25.561-Right knee pain, unspecified chronicity * * * * Physician Interpretation * * * * EXAMINATION / TECHNIQUE: XR KNEE 3V AP/LAT/MERCHANT RT PATIENT/TECHNOLOGIST PROVIDED HISTORY: PAIN IN RIGHT KNEE CLINICAL INFORMATION ( PROVIDED BY ORDERING CLINICIAN) : Right knee pain, unspecified chronicity COMPARISON: 03/09/2023 RESULT: New/increased lucency in the patella along the lateral bone-arthroplasty interface suspicious for nondisplaced fracture. Otherwise stable appearance of the right knee arthroplasty including stable 1 mm lucency between the medial tibial plateau cement-bone interface. Small suprapatellar effusion. Patellofemoral predominant degenerative changes noted in the left knee, similar prior. IMPRESSION IMPRESSION: Nondisplaced right patellar fracture along lateral bone-arthroplasty interface. 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 Milieu Coordinator: PSCB Transcribe Date/Time: Sep 07 2023 8:48A Dictated by : MARIA DEL CARMEN FROST MD This examination was interpreted and the report reviewed and electronically signed by: MARIA DEL CARMEN FROST MD on Sep 07 2023 8:54AM EST [facility] XR Knee AP and Lateral and M erchantsOrdered By: Ccf Provider on 09-07-2023 [facility] C-REACTIVE PROTEIN (CRP)on 0 09-04-2023 CRP [Mass/Vol] <0.9 mg/dL [facility] CBC W Auto Differential pane l (Bld)on 09-04-2023 Basophils (Bld) [#/Vol] 0.04 10*3/uL <0.11 k/uL [facility] Basophils/100 WBC (Bld) 0.6 % [facility] Differential cell count method Nom (Bld) Auto [facility] Eosinophils (Bld) [#/Vol] 0.16 10*3/uL <0.46 k/uL [facility] Eosinophils/100 WBC (Bld) 2.2 % [facility] Erythrocyte distribution width (RBC) [Ratio] 12.4 % 11.5 - 15.0 % [facility] Hematocrit (Bld) [Volume fraction] 41.5 % 36.0 - 46.0 % [facility] Hemoglobin (Bld) [Mass/Vol] 14.0 g/dL 11.5 - 15.5 g/dL [facility] Immature granulocytes (Bld) [#/Vol] <0.10 k/uL [facility] Immature granulocytes/100 WBC (Bld) 0.1 % [facility] Lymphocytes (Bld) [#/Vol] 1.96 10*3/uL 1.00 - 4.00 k/uL [facility] Lymphocytes/100 WBC (Bld) 27.2 % [facility] MCH (RBC) [Entitic mass] 30.9 pg 26.0 - 34.0 pg [facility] MCHC (RBC) [Mass/Vol] 33.7 g/dL 30.5 - 36.0 g/dL [facility] MCV (RBC) [Entitic vol] 91.6 fL 80.0 - 100.0 fL [facility] Monocytes (Bld) [#/Vol] 0.65 10*3/uL <0.87 k/uL [facility] Monocytes/100 WBC (Bld) 9.0 % [facility] Neutrophils (Bld) [#/Vol] 4.38 10*3/uL 1.45 - 7.50 k/uL [facility] Neutrophils/100 WBC (Bld) 60.9 % [facility] Nucleated RBC (Bld) [#/Vol] <0.01 k/uL [facility] Nucleated RBC/100 WBC (Bld) [Ratio] 0.0 /100 WBC [facility] Platelet mean volume (Bld) [Entitic vol] 10.8 fL 9.0 - 12.7 fL [facility] Platelets (Bld) [#/Vol] 262 10*3/uL 150 - 400 k/uL [facility] RBC (Bld) [#/Vol] 4.53 10*6/uL 3.90 - 5.20 m/uL [facility] WBC (Bld) [#/Vol] 7.20 10*3/uL 3.70 - 11.00 k/uL [facility] ESR Westergren method (Bld) [Velocity]on 09-04-2023 ESR (Bld) [Velocity] 8 mm/h 0 - 20 mm/hr [facility] XR Knee AP and Lateral and M erchantson 09-04-2023 Radiology Study observation (narrative) [facility] CALCIFEDIOL (81609)Ordered B y: Cook Syrup Maker on 04-02-2023 25-hydroxyvitamin D [Mass/Vol] 56.9 ng/mL Normal 30.0-100.0 [facility]; [facility] Work Phone: Comment on above: Vitamin D deficiency has been defined by the [place] of[place] and an Endocrine Society practice guideline as alevel of serum 25-OH vitamin D less than 20 ng/mL (1,2).The Endocrine Society went on to further define vitamin Dinsufficiency as a level between 21 and 29 ng/mL (2).1. IOM ([place] of Medicine). 2010. Dietary reference intakes for calcium and D. [place]: The National Academies Press.2. Latanya MF, Victorino NC, Alysia HENDRICKSON, et al. Evaluation, treatment, and prevention of vitamin D deficiency: an Endocrine Society clinical practice guideline. JCEM. 2010; 96(7):1911-30. PATIENT WAS FASTINGP ERFORMED BY: BENITO [facility] [id number] Tim RoadDublin [place] [id number] CBC, PLATELETS & AUT DIFF ([id number])Ordered By: Cook Syrup Maker on 04-02-2023 Basophils (Bld) [#/Vol] 0.0 10*3/uL Normal 0.0-0.2 [facility]; [facility] Work Phone: Comment on above: PATIENT WAS FASTINGP ERFORMED BY: BENITO [facility] Sydjet0581 Tim RoadDublin [place] [id number] Basophils/100 WBC (Bld) 1 % Normal [facility]; [facility] Work Phone: Comment on above: PATIENT WAS FASTINGP ERFORMED BY: BENITO [facility] [id number] Tim RoadDublin [place] [id number] Eosinophils (Bld) [#/Vol] 0.2 10*3/uL Normal 0.0-0.4 [facility]; [facility] Work Phone: Comment on above: PATIENT WAS FASTINGP ERFORMED BY: BENITO [facility] Lowuvv4028 Tim RoadDublin [place] [id number] Eosinophils/100 WBC (Bld) 5 % Normal [facility]; [facility] Work Phone: Comment on above: PATIENT WAS FASTINGP ERFORMED BY: BENITO [facility] Obxwqv4670 Tim RoadDublin [place] [id number] Erythrocyte distribution width (RBC) [Ratio] 12.3 % Normal 11.7-15.4 [facility]; [facility] Work Phone: Comment on above: PATIENT WAS FASTINGP ERFORMED BY: CB [facility] Hnfray0925 Tim RoadDublin [place] [id number] Hematocrit (Bld) [Volume fraction] 39.8 % Normal 34.0-46.6 [facility]; [facility] Work Phone: Comment on above: PATIENT WAS FASTINGP ERFORMED BY: CB [facility] Uuxsly0340 Tim RoadDublin [place] [id number] Hemoglobin (Bld) [Mass/Vol] 13.3 g/dL Normal 11.1-15.9 [facility]; [facility] Work Phone: Comment on above: PATIENT WAS FASTINGP ERFORMED BY: BENITO [facility] Dbleur0233 [facility] [id number] Immature granulocytes (Bld) [#/Vol] 0.0 10*3/uL Normal 0.0-0.1 [facility]; [facility] Work Phone: Comment on above: PATIENT WAS FASTINGP ERFORMED BY: [facility]6370 [facility] [id number] Immature granulocytes/100 WBC (Bld) 0 % Normal [facility]; [facility] Work Phone: Comment on above: PATIENT WAS FASTINGP ERFORMED BY: [facility] [id number] [facility] [id number] Lymphocytes (Bld) [#/Vol] 2.0 10*3/uL Normal 0.7-3.1 [facility]; [facility] Work Phone: Comment on above: PATIENT WAS FASTINGP ERFORMED BY: BENITO [facility]6[address] [facility] [id number] Lymphocytes/100 WBC (Bld) 38 % Normal [facility]; [facility] Work Phone: Comment on above: PATIENT WAS FASTINGP ERFORMED BY: [place] [id number] [facility] [id number] MCH (RBC) [Entitic mass] 30.6 pg Normal 26.6-33.0 [facility]; [facility] Work Phone: Comment on above: PATIENT WAS FASTINGP ERFORMED BY: [facility]6370 [facility] [id number] MCHC (RBC) [Mass/Vol] 33.4 g/dL Normal 31.5-35.7 [facility]; [facility] Work Phone: Comment on above: PATIENT WAS FASTINGP ERFORMED BY: BENITO [facility] Udrnpu1902 Tim RoadDublin [place] [id number] MCV (RBC) [Entitic vol] 92 fL Normal 79-97 [facility]; [facility] Work Phone: Comment on above: PATIENT WAS FASTINGP ERFORMED BY: BENITO [facility] Jekblt9366 Tim [address]bl[address] [place] [id number] Monocytes (Bld) [#/Vol] 0.5 10*3/uL Normal 0.1-0.9 [facility]; [facility] Work Phone: Comment on above: PATIENT WAS FASTINGP ERFORMED BY: BENITO [facility] Cqmvyx4136 Tim Roadblin [place] [id number] Monocytes/100 WBC (Bld) 9 % Normal [facility]; [facility] Work Phone: Comment on above: PATIENT WAS FASTINGP ERFORMED BY: BENITO Lab[facility] Bltoln5800 Tim [facility] [place] [id number] Neutrophils (Bld) [#/Vol] 2.4 10*3/uL Normal 1.4-7.0 [facility]; [facility] Work Phone: Comment on above: PATIENT WAS FASTINGP ERFORMED BY: BENITO [facility] Npalei7931 Tim Roadbl[address] [place] [id number] Neutrophils/100 WBC (Bld) 47 % Normal [facility]; [facility] Work Phone: Comment on above: PATIENT WAS FASTINGP ERFORMED BY: BENITO [facility] Mjyoby3551 Tim [facility] [place] [id number] Platelets (Bld) [#/Vol] 233 10*3/uL Normal 150-450 [facility]; [facility] Work Phone: Comment on above: PATIENT WAS FASTINGP ERFORMED BY: BENITO [facility] Yhdfun3605 Tim Roadbl[address] [place] [id number] RBC (Bld) [#/Vol] 4.34 10*6/uL Normal 3.77-5.28 [facility]; [facility] Work Phone: Comment on above: PATIENT WAS FASTINGP ERFORMED BY: BENITO [facility] Szzvbh0964 Tim RoadDublin [place] [id number] WBC (Bld) [#/Vol] 5.1 10*3/uL Normal 3.4-10.8 [facility]; [facility] Work Phone: Comment on above: PATIENT WAS FASTINGP ERFORMED BY: BENITO [facility] Nvwqwl9657 Tim RoadDublin [place] [id number] LIPID PANEL (30530)Ordered B y: Cook Syrup Maker on 04-02-2023 Cholesterol [Mass/Vol] 128 mg/dL Normal 100-199 [facility]; [facility] Work Phone: Comment on above: PATIENT WAS FASTINGP ERFORMED BY: BENITO [facility] Mustafalin6370 Tim RoadDublin [place] [id number] Cholesterol in HDL [Mass/Vol] 54 mg/dL Normal [facility]; [facility] Work Phone: Comment on above: PATIENT WAS FASTINGP ERFORMED BY: BENITO [facility] MustafaIekejb5337 Tim RoadDublin [place] [id number] Triglyceride [Mass/Vol] 119 mg/dL Normal 0-149 [facility]; [facility] Work Phone: Comment on above: PATIENT WAS FASTINGP ERFORMED BY: BENITO [facility] MustafaGqqidf9791 Tim RoadDublin [place] [id number] LIPID PANEL (76825) 21 mg/dL Normal 5-40 [facility]; [facility] Work Phone: Comment on above: PATIENT WAS FASTINGP ERFORMED BY: BENITO [facility] Sgzlnl7748 Tim RoadDublin [place] [id number] LIPID PANEL (61920) 53 mg/dL Normal 0-99 [facility]; [facility] Work Phone: Comment on above: PATIENT WAS FASTINGP ERFORMED BY: BENITO [facility] Ukwecv3821 Tim RoadDublin [place] [id number] LIPID PANEL (30887) 1.0 {ratio} Normal 0.0-3.2 Comp rehensive [facility]; [facility] Work Phone: Comment on above: LDL/HDL Ratio Men Wo men 1/2 Avg.Risk 1.0 1.5 Avg.Risk 3.6 3.2 2X Avg.Risk 6.2 5.0 3X Avg.Risk 8.0 6.1 PATIENT WAS FASTINGP ERFORMED BY: CB [facility] Qfqvoj7711 Tim RoadDublin [place] [id number] METABOLIC PANEL, COMPREHENSI VE ([id number])Ordered By: Cook Syrup Maker on 04-02-2023 Albumin [Mass/Vol] 4.2 g/dL Normal 3.9-4.9 [facility]; [facility] Work Phone: Comment on above: PATIENT WAS FASTINGP ERFORMED BY: CB [facility] Vpevcg4672 Tim RoadDublin [place] [id number] Albumin/Globulin [Mass ratio] 2.0 {ratio} Normal 1.2-2.2 [facility]; [facility] Work Phone: Comment on above: PATIENT WAS FASTINGP ERFORMED BY: CB [facility] Whrvzl3778 Tim RoadDublin [place] [id number] ALP [Catalytic activity/Vol] 88 U/L Normal 44-121 [facility]; [facility] Work Phone: Comment on above: PATIENT WAS FASTINGP ERFORMED BY: CB [facility] Rfjbgf9838 Tim RoadDublin [place] [id number] ALT [Catalytic activity/Vol] 23 U/L Normal 0-32 [facility]; [facility] Work Phone: Comment on above: PATIENT WAS FASTINGP ERFORMED BY: CB [facility] Wuffem5350 Tim RoadD[address] [place] [id number] AST [Catalytic activity/Vol] 33 U/L Normal 0-40 [facility]; [facility] Work Phone: Comment on above: PATIENT WAS FASTINGP ERFORMED BY: CB [facility] Tmzpgl4814 Tim RoadDublin [place] [id number] Bilirubin [Mass/Vol] 0.3 mg/dL Normal 0.0-1.2 [facility]; [facility] Work Phone: Comment on above: PATIENT WAS FASTINGP ERFORMED BY: BENITO [facility] Qvfnnu0359 [address] RoadD[address] [place] [id number] Calcium [Mass/Vol] 9.8 mg/dL Normal 8.7-10.3 [facility]; [facility] Work Phone: Comment on above: PATIENT WAS FASTINGP ERFORMED BY: BENITO [facility] Zjgswf8211 [address] RoadDublin [place] [id number] Chloride [Moles/Vol] 106 mmol/L Normal 96-106 [facility]; [facility] Work Phone: Comment on above: PATIENT WAS FASTINGP ERFORMED BY: BENITO [facility] Hdxemi8092 [address] [place] [id number] CO2 [Moles/Vol] 27 mmol/L Normal 20-29 [facility]; [facility] Work Phone: Comment on above: PATIENT WAS FASTINGP ERFORMED BY: BENITO [facility] Krfswq2879 Tim RoadD[address] [place] [id number] Creatinine [Mass/Vol] 0.73 mg/dL Normal 0.57-1.00 [facility]; [facility] Work Phone: Comment on above: PATIENT WAS FASTINGP ERFORMED BY: BENITO [facility] Comytn6665 Tim RoadCone Healthin [place] [id number] GFR/1.73 sq M.predicted among non-blacks MDRD (S/P/Bld) [Vol rate/Area] 89 mL/min/{1.73_m2} Normal Comprehensiv e [facility]; [facility] Work Phone: Comment on above: PATIENT WAS FASTINGP ERFORMED BY: BENITO [facility] Blfkek4202 [address] RoadDublin [place] [id number] Globulin (S) [Mass/Vol] 2.1 g/dL Normal 1.5-4.5 [facility]; [facility] Work Phone: Comment on above: PATIENT WAS FASTINGP ERFORMED BY: BENITO [facility] Nvxgwp7426 Tim [facility] [id number] Glucose [Mass/Vol] 89 mg/dL Normal 70-99 [facility]; [facility] Work Phone: Comment on above: PATIENT WAS FASTINGP ERFORMED BY: BENITO Labchristie MustafaTajcqp0331 Tim RoadCone Healthin [place] [id number] Potassium [Moles/Vol] 4.8 mmol/L Normal 3.5-5.2 [facility]; [facility] Work Phone: Comment on above: PATIENT WAS FASTINGP ERFORMED BY: BENITO [facility] Uzlyku4280 [facility]in [place] [id number] Protein [Mass/Vol] 6.3 g/dL Normal 6.0-8.5 [facility]; [facility] Work Phone: Comment on above: PATIENT WAS FASTINGP ERFORMED BY: BENITO Labchristie MustafaLepjrr4417 [facility] [id number] Sodium [Moles/Vol] 144 mmol/L Normal 134-144 [facility]; [facility] Work Phone: Comment on above: PATIENT WAS FASTINGP ERFORMED BY: BENITO Labchristie MustafaZzicsl2820 [facility] [id number] Urea nitrogen [Mass/Vol] 7 mg/dL Abnormal 8-27 [facility]; [facility] Work Phone: Comment on above: PATIENT WAS FASTINGP ERFORMED BY: BENITO [facility] Bbonii4780 [facility]in [place] [id number] Urea nitrogen/Creatinine [Mass ratio] 10 mg/mg Abnormal 12-28 [facility]; [facility] Work Phone: Comment on above: PATIENT WAS FASTINGP ERFORMED BY: BENITO [facility] Mkngxw7375 [facility]in [place] [id number] MICROALBUMINOrdered By: Syst em Fishing Vessel Mate on 04-02-2023 Albumin DL <= 20 mg/L (U) [Mass/Vol] 4.6 ug/mL Normal Comprehensiv e Internal Medicine; [facility] Work Phone: Comment on above: PATIENT WAS FASTINGP ERFORMED BY: BENITO Mcclain6370 Tim RoadDublin [place] [id number] Albumin/Creatinine (U) [Mass ratio] 10 {mg/g_creat} Normal 0-29 [facility]; [facility] Work Phone: Comment on above: Normal: 0 - 29 Moder ately increased: 30 - 300 Severely increased: >300 PATIENT WAS FASTINGP ERFORMED BY: BENITO Mustafalin6370 Tim RoadDublin [place] [id number] Creatinine (U) [Mass/Vol] 46.7 mg/dL Normal [facility]; [facility] Work Phone: Comment on above: PATIENT WAS FASTINGP ERFORMED BY: BENITO Mustafalin6370 Tim RoadDublin [place] [id number] TSH ([id number])Ordered By: Brand.net m Fishing Vessel Mate on 04-02-2023 TSH Qn 0.967 {uIU/mL} Normal 0.450-4.50 0 [facility]; [facility] Work Phone: Comment on above: PATIENT WAS FASTINGP ERFORMED BY: BENITO Mustafalin6370 Tim [facility] HospitalD[facility] [place] [id number] URINALYSIS, W/ MICRO ([id number]) Ordered By: Cook Syrup Maker on 04-02-2023 Appearance (U) Clear Normal Comprehens enmanuel Internal Medicine; [facility] Work Phone: Comment on above: PATIENT WAS FASTINGP ERFORMED BY: BENITO Labchristie MustafaUwfjca3461 Tim RoadDublin [place] [id number]; fu 9-18 KF Bilirubin Ql (U) Negative Normal Comprehe nsive Internal Medicine; [facility] Work Phone: Comment on above: PATIENT WAS FASTINGP ERFORMED BY: BENITO Labchristie MustafaFxwetc0539 Tim RoadDublin [place] [id number]; fu 9-18 KF Color (U) Yellow Normal [facility]; [facility] Work Phone: Comment on above: PATIENT WAS FASTINGP ERFORMED BY: BENITO Labcomary Dysufz6017 Tim RoadDublin [place] [id number]; fu 04-13 KF Glucose Ql (U) Negative Normal Comprehens enmanuel Internal Medicine; [facility] Work Phone: Comment on above: PATIENT WAS FASTINGP ERFORMED BY: BENITO Labchristie MustafaGkbfcy2075 Tim RoadDublin [place] [id number]; fu 04-13 KF Hemoglobin Ql (U) Trace Abnormal Compreh ensive Internal Medicine; [facility] Work Phone: Comment on above: PATIENT WAS FASTINGP ERFORMED BY: BENITO Labchristie Slejrx5498 Tim RoadDublin [place] [id number]; fu 04-13 KF Ketones Ql (U) Negative Normal Comprehens enmanuel Internal Medicine; [facility] Work Phone: Comment on above: PATIENT WAS FASTINGP ERFORMED BY: BENITO Aronmary MustafaEokuzc3302 Tim RoadDublin [place] [id number]; 04-13 KF Leukocyte esterase Test strip Ql (U) Negative Normal [facility]; [facility] Work Phone: Comment on above: PATIENT WAS FASTINGP ERFORMED BY: BENITO [facility] Jhflhc4249 Tim RoadDublin [place] [id number]; fu 04-13 KF Microscopic observation LM Nom (Urine sed) See below: Normal [facility]; [facility] Work Phone: Comment on above: Microscopic was gianna cated and was performed. PATIENT WAS FASTINGP ERFORMED BY: BENITO [facility] Bmripp9263 Tim RoadDublin [place] [id number]; fu 04-13 KF Nitrite Ql (U) Negative Normal Comprehens enmanuel Internal [facility]; [facility] Work Phone: Comment on above: PATIENT WAS FASTINGP ERFORMED BY: BENITO [facility] Vxitzl8074 Tim RoadDublin [place] [id number]; fu 04-13 KF pH (U) 6.5 [pH] Normal 5.0-7.5 [facility]; [facility] Work Phone: Comment on above: PATIENT WAS FASTINGP ERFORMED BY: BENITO Labchristie MustafaYibjxb2542 Tim RoadCone Healthin [place] [id number]; fu 04-13 KF Protein Ql (U) Negative Normal Comprehens enmanuel Internal Medicine; [facility] Work Phone: Comment on above: PATIENT WAS FASTINGP ERFORMED BY: CB [facility] Mlqfxx6767 Tim RoadDeansboro [place] [id number]; fu 04-13 KF Specific gravity (U) [Rel density] 1.009 1 Normal 1.005-1.03 0 [facility]; [facility] Work Phone: Comment on above: PATIENT WAS FASTINGP ERFORMED BY: CB [facility] Tbmvkk6781 Tim RoadDuin [place] [id number]; fu 04-13 KF Urobilinogen (U) [Mass/Vol] 0.2 mg/dL Normal 0.2-1.0 [facility]; [facility] Work Phone: Comment on above: PATIENT WAS FASTINGP ERFORMED BY: CB [facility] Eihudq4342 [facility] [id number]; fu 04-13 KF XR Knee AP and Lateral and M erchantson 03-11-2023 IMPRESSION: Possible mild loosening of the tibial and patellar components of the TKA. Consider bone scan. 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 Also is new lucency involving the bone patellar bone interface laterally. No fracture. Small suprapatellar joint effusion. 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 Also is new lucency involving the bone patellar bone interface laterally. No fracture. Small suprapatellar joint effusion. IMPRESSION IMPRESSION: Possible mild loosening of the tibial and patellar components of the TKA. Consider bone scan. Milieu Coordinator: JANAE Transcribe Date/Time: Mar 11 2023 12:25P Dictated by : BILLY KELLY MD This examination was interpreted and the report reviewed and electronically signed by: BILLY KELLY MD on Mar 11 2023 12:28PM EST [facility] XR Knee AP and Lateral and M erchantsOrdered By: Ccf Provider on 03-11-2023 [facility] XR Knee AP and Lateral and M erchantson 03-09-2023 Radiology Study observation (narrative) [facility] Basophil percentageOrdered B y: Dr. Aponte on 10-16-2022 Potassium [Moles/Vol] 5.4 mmol/L 3.5-5.1 [facility] CALCIFIDIOL (57048) VIT D 25 Ordered By: Cook Syrup Maker on 10-14-2022 25-hydroxyvitamin D [Mass/Vol] 58.6 ng/mL Normal 30.0-100.0 [facility]; [facility] Work Phone: Comment on above: Vitamin D deficiency has been defined by the [place] ofMedicine and an Endocrine Society practice guideline as alevel of serum 25-OH vitamin D less than 20 ng/mL (1,2).The Endocrine Society went on to further define vitamin Dinsufficiency as a level between 21 and 29 ng/mL (2).1. IOM ([place] of Medicine). 2010. Dietary reference intakes for calcium and D. [place]: The National Academies Press.2. Latanya MF, Victorino LOYOLA, Alysia HENDRICKSON, et al. Evaluation, treatment, and prevention of vitamin D deficiency: an Endocrine Society clinical practice guideline. JCEM. 2010; 96(7):1911-30. PATIENT WAS FASTINGP ERFORMED BY: CB [facility] Rwfrci0536 Tim RoadDublin [place] [id number] CBC W/AUTO DIFF WBC (80832)O rdered By: Cook Syrup Maker on 10-14-2022 Basophils (Bld) [#/Vol] 0.1 10*3/uL Normal 0.0-0.2 [facility]; [facility] Work Phone: Comment on above: PATIENT WAS FASTINGP ERFORMED BY: [employer] [facility] Gwvmzk2106 Tim DelverDublin [place] [id number] Basophils/100 WBC (Bld) 1 % Normal [facility]; [facility] Work Phone: Comment on above: PATIENT WAS FASTINGP ERFORMED BY: [employer] [facility] Iahacq6133 Tim DelverDublin [place] [id number] Eosinophils (Bld) [#/Vol] 0.3 10*3/uL Normal 0.0-0.4 [facility]; [facility] Work Phone: Comment on above: PATIENT WAS FASTINGP ERFORMED BY: [employer] [facility] Fnpgtc7926 Tim RoadDublin [place] [id number] Eosinophils/100 WBC (Bld) 5 % Normal [facility]; [facility] Work Phone: Comment on above: PATIENT WAS FASTINGP ERFORMED BY: [employer] [facility] Obhrub4585 Tim DelverDublin [place] [id number] Erythrocyte distribution width (RBC) [Ratio] 15.9 % Abnormal 11.7-15.4 [facility]; [facility] Work Phone: Comment on above: PATIENT WAS FASTINGP ERFORMED BY: BENITO Mcclain6370 [facility] [id number] Hematocrit (Bld) [Volume fraction] 41.8 % Normal 34.0-46.6 [facility]; [facility] Work Phone: Comment on above: PATIENT WAS FASTINGP ERFORMED BY: Annabelssm rehab Oqpfke8925 [facility] [id number] Hemoglobin (Bld) [Mass/Vol] 13.5 g/dL Normal 11.1-15.9 [facility]; [facility] Work Phone: Comment on above: PATIENT WAS FASTINGP ERFORMED BY: Annabelssm rehab Jpyjxv5299 [facility] [id number] Immature granulocytes (Bld) [#/Vol] 0.0 10*3/uL Normal 0.0-0.1 [facility]; [facility] Work Phone: Comment on above: PATIENT WAS FASTINGP ERFORMED BY: Aron Hqzhrr1719 [facility] [id number] Immature granulocytes/100 WBC (Bld) 0 % Normal [facility]; [facility] Work Phone: Comment on above: PATIENT WAS FASTINGP ERFORMED BY: [facility]Tr[facility]6370 [facility] [id number] Lymphocytes (Bld) [#/Vol] 1.7 10*3/uL Normal 0.7-3.1 [facility]; [facility] Work Phone: Comment on above: PATIENT WAS FASTINGP ERFORMED BY: Aron Aycuqj8188 [facility] [id number] Lymphocytes/100 WBC (Bld) 30 % Normal [facility]; [facility] Work Phone: Comment on above: PATIENT WAS FASTINGP ERFORMED BY: LabTr[facility] Hospital6[address] RoadDublin [place] [id number] MCH (RBC) [Entitic mass] 28.1 pg Normal 26.6-33.0 [facility]; [facility] Work Phone: Comment on above: PATIENT WAS FASTINGP ERFORMED BY: [facility]6[address] Tim Roadbl[address] [place] [id number] MCHC (RBC) [Mass/Vol] 32.3 g/dL Normal 31.5-35.7 [facility]; [facility] Work Phone: Comment on above: PATIENT WAS FASTINGP ERFORMED BY: [facility]6370 [address] [facility] Hospitalblin [place] [id number] MCV (RBC) [Entitic vol] 87 fL Normal 79-97 [facility]; [facility] Work Phone: Comment on above: PATIENT WAS FASTINGP ERFORMED BY: [place] [id number] Tim Roadblin [place] [id number] Monocytes (Bld) [#/Vol] 0.6 10*3/uL Normal 0.1-0.9 [facility]; [facility] Work Phone: Comment on above: PATIENT WAS FASTINGP ERFORMED BY: AnnabelTr[facility] Hospital6[address] RoadDublin [place] [id number] Monocytes/100 WBC (Bld) 11 % Normal [facility]; [facility] Work Phone: Comment on above: PATIENT WAS FASTINGP ERFORMED BY: [facility]6370 [address] [facility] Hospitalblin [place] [id number] Neutrophils (Bld) [#/Vol] 3.0 10*3/uL Normal 1.4-7.0 [facility]; [facility] Work Phone: Comment on above: PATIENT WAS FASTINGP ERFORMED BY: [facility]6[address] RoadD[address] [place] [id number] Neutrophils/100 WBC (Bld) 53 % Normal [facility]; [facility] Work Phone: Comment on above: PATIENT WAS FASTINGP ERFORMED BY: BENITO [facility] Kjcbxh6277 Tim RoadDublin [place] [id number] Platelets (Bld) [#/Vol] 300 10*3/uL Normal 150-450 [facility]; [facility] Work Phone: Comment on above: PATIENT WAS FASTINGP ERFORMED BY: CB [facility] Msmacf0724 Tim RoadDublin [place] [id number] RBC (Bld) [#/Vol] 4.81 10*6/uL Normal 3.77-5.28 [facility]; [facility] Work Phone: Comment on above: PATIENT WAS FASTINGP ERFORMED BY: BENITO [facility] Zhiskd4593 Tim RoadDublin [place] [id number] WBC (Bld) [#/Vol] 5.6 10*3/uL Normal 3.4-10.8 [facility]; [facility] Work Phone: Comment on above: PATIENT WAS FASTINGP ERFORMED BY: BENITO [facility] Oojtfu2275 Tim RoadDublin [place] [id number] LIPID PANEL (44049)Ordered B y: Cook Syrup Maker on 10-14-2022 Cholesterol [Mass/Vol] 162 mg/dL Normal 100-199 [facility]; [facility] Work Phone: Comment on above: PATIENT WAS FASTINGP ERFORMED BY: BENITO [facility] Xbxawo5507 Tim RoadDublin [place] [id number] Cholesterol in HDL [Mass/Vol] 64 mg/dL Normal [facility]; [facility] Work Phone: Comment on above: PATIENT WAS FASTINGP ERFORMED BY: CB [facility] Fipvmp4678 Tim RoadDublin [place] [id number] Triglyceride [Mass/Vol] 127 mg/dL Normal 0-149 [facility]; [facility] Work Phone: Comment on above: PATIENT WAS FASTINGP ERFORMED BY: BENITO [facility] Jxzixr0461 Tim RoadDublin [place] [id number] LIPID PANEL (02150) 22 mg/dL Normal 5-40 Compr ehensive Internal Medicine; [facility] Work Phone: Comment on above: PATIENT WAS FASTINGP ERFORMED BY: BENITO [facility] Tllgrl4115 Tim Roadblin [place] [id number] LIPID PANEL (12730) 76 mg/dL Normal 0-99 [facility] Internal Medicine; [facility] Work Phone: Comment on above: PATIENT WAS FASTINGP ERFORMED BY: BENITO [facility] Krimes1638 [facility]Northern [facility] [id number] LIPID PANEL (44620) 1.2 {ratio} Normal 0.0-3.2 [facility] Internal Medicine; [facility] Work Phone: Comment on above: LDL/HDL Ratio Men Wo men 1/2 Avg.Risk 1.0 1.5 Avg.Risk 3.6 3.2 2X Avg.Risk 6.2 5.0 3X Avg.Risk 8.0 6.1 PATIENT WAS FASTINGP ERFORMED BY: BENITO [facility] Mloqdd4439 [facility] [id number] METABOLIC PANEL, COMPREHENSI VE (40974)Ordered By: Cook Syrup Maker on 10-14-2022 Albumin [Mass/Vol] 4.3 g/dL Normal 3.8-4.8 [facility] Internal Medicine; [facility] Work Phone: Comment on above: PATIENT WAS FASTINGP ERFORMED BY: BENITO [facility] Vklhal9129 Tim [facility] [place] [id number] Albumin/Globulin [Mass ratio] 2.0 {ratio} Normal 1.2-2.2 [facility] Internal Medicine; [facility] Work Phone: Comment on above: PATIENT WAS FASTINGP ERFORMED BY: CB [facility] Vomlns0230 Tim [facility] HospitalD[facility] [place] [id number] ALP [Catalytic activity/Vol] 80 U/L Normal 44-121 [facility] Internal Medicine; [facility] Work Phone: Comment on above: PATIENT WAS FASTINGP ERFORMED BY: BENITO [facility] Ucapbc5104 Tim RoadDublin [place] [id number] ALT [Catalytic activity/Vol] 23 U/L Normal 0-32 [facility]; [facility] Work Phone: Comment on above: PATIENT WAS FASTINGP ERFORMED BY: CB [facility] Etbmpm5882 Tim RoadDublin [place] [id number] AST [Catalytic activity/Vol] 29 U/L Normal 0-40 [facility]; [facility] Work Phone: Comment on above: PATIENT WAS FASTINGP ERFORMED BY: CB [facility] Hthqpc1520 Tim RoadDublin [place] [id number] Bilirubin [Mass/Vol] 0.6 mg/dL Normal 0.0-1.2 Comp [facility]; [facility] Work Phone: Comment on above: PATIENT WAS FASTINGP ERFORMED BY: CB [facility] Gbnejz8874 Tim RoadDublin [place] [id number] Calcium [Mass/Vol] 10.3 mg/dL Normal 8.7-10.3 [facility] Internal Medicine; [facility] Work Phone: Comment on above: PATIENT WAS FASTINGP ERFORMED BY: CB [facility] Ghsdfu3053 Tim RoadDublin [place] [id number] Chloride [Moles/Vol] 105 mmol/L Normal 96-106 [facility]; [facility] Work Phone: Comment on above: PATIENT WAS FASTINGP ERFORMED BY: CB [facility] Vzzeub0280 Tim RoadDublin [place] [id number] CO2 [Moles/Vol] 26 mmol/L Normal 20-29 [facility] Internal Medicine; [facility] Work Phone: Comment on above: PATIENT WAS FASTINGP ERFORMED BY: CB [facility] Ecazcf3905 Tim RoadDublin [place] [id number] Creatinine [Mass/Vol] 0.82 mg/dL Normal 0.57-1.00 [facility]; [facility] Work Phone: Comment on above: PATIENT WAS FASTINGP ERFORMED BY: CB [facility] Nlhcct2055 Tim RoadDublin [place] [id number] GFR/1.73 sq M.predicted among non-blacks MDRD (S/P/Bld) [Vol rate/Area] 78 mL/min/{1.73_m2} Normal Comprehensiv e Internal Medicine; [facility] Work Phone: Comment on above: PATIENT WAS FASTINGP ERFORMED BY: [facility]6370 Tim [facility] HospitalD[facility] [place] [id number] Globulin (S) [Mass/Vol] 2.1 g/dL Normal 1.5-4.5 [facility]; [facility] Work Phone: Comment on above: PATIENT WAS FASTINGP ERFORMED BY: LabTr[facility]6[address] RoadDublin [place] [id number] Glucose [Mass/Vol] 91 mg/dL Normal 70-99 [facility]pre [facility]; [facility] Work Phone: Comment on above: PATIENT WAS FASTINGP ERFORMED BY: LabTr[facility]6370 Tim [facility]in [place] [id number] Potassium [Moles/Vol] 5.7 mmol/L Abnormal 3.5-5.2 [facility]; [facility] Work Phone: Comment on above: Client Requested [place] g PATIENT WAS FASTINGP ERFORMED BY: LabTr[facility]6370 Tim [facility] HospitalDuin [place] [id number] Protein [Mass/Vol] 6.4 g/dL Normal 6.0-8.5 [facility] Internal [facility]; [facility] Work Phone: Comment on above: PATIENT WAS FASTINGP ERFORMED BY: LabWestern [facility] Medical CenterEfqiyf7528 [facility]in [place] [id number] Sodium [Moles/Vol] 142 mmol/L Normal 134-144 Compre [facility]; [facility] Work Phone: Comment on above: PATIENT WAS FASTINGP ERFORMED BY: LabTr[facility]6370 Tim [facility] HospitalD[facility] [place] [id number] Urea nitrogen [Mass/Vol] 12 mg/dL Normal 8-27 [facility]; [facility] Work Phone: Comment on above: PATIENT WAS FASTINGP ERFORMED BY: BENITO [facility] Sdzjxu0301 Tim RoadDublin [place] [id number] Urea nitrogen/Creatinine [Mass ratio] 15 mg/mg Normal 12-28 [facility]; [facility] Work Phone: Comment on above: PATIENT WAS FASTINGP ERFORMED BY: BENITO [facility] Bozeid3750 Tim RoadDublin [place] [id number] MICROALBUMINOrdered By: Beezik em Fishing Vessel Mate on 10-14-2022 Albumin DL <= 20 mg/L (U) [Mass/Vol] 3.0 ug/mL Normal Comprehensiv e Internal Medicine; [facility] Work Phone: Comment on above: PATIENT WAS FASTINGP ERFORMED BY: BENITO [facility] Yhjgpe9815 Tim RoadDublin [place] [id number] Albumin/Creatinine (U) [Mass ratio] 5 {mg/g_creat} Normal 0-29 [facility]; [facility] Work Phone: Comment on above: Normal: 0 - 29 Moder ately increased: 30 - 300 Severely increased: >300 PATIENT WAS FASTINGP ERFORMED BY: BENITO [facility] Dvpepv5376 Tim RoadDublin [place] [id number] Creatinine (U) [Mass/Vol] 58.4 mg/dL Normal [facility]; [facility] Work Phone: Comment on above: PATIENT WAS FASTINGP ERFORMED BY: BENITO [facility] Atpikm4310 Tim RoadDublin [place] [id number] TSH ([id number])Ordered By: Beezike Fishing Vessel Mate on 10-14-2022 TSH Qn 1.680 {uIU/mL} Normal 0.450-4.50 0 [facility]; [facility] Work Phone: Comment on above: PATIENT WAS FASTINGP ERFORMED BY: BENITO [facility] Hncoxq7737 Tim RoadDublin [place] [id number] URINALYSIS, W/ MICRO ([id number]) Ordered By: Cook Syrup Maker on 10-14-2022 Appearance (U) Clear Normal Comprehens enmanuel Internal Medicine; [facility] Work Phone: Comment on above: PATIENT WAS FASTINGP ERFORMED BY: BENITO [facility] Dllmkx4810 Tim RoadDublin [place] [id number] Bilirubin Ql (U) Negative Normal Comprehe nsive Internal Medicine; [facility] Work Phone: Comment on above: PATIENT WAS FASTINGP ERFORMED BY: BENITO [facility] Yubwum9539 Tim RoadDublin [place] [id number] Color (U) Yellow Normal [facility]; [facility] Work Phone: Comment on above: PATIENT WAS FASTINGP ERFORMED BY: BENITO [facility] Xqxcho6920 Tim RoadDublin [place] [id number] Glucose Ql (U) Negative Normal Comprehens enmanuel Internal Medicine; [facility] Work Phone: Comment on above: PATIENT WAS FASTINGP ERFORMED BY: BENITO [facility] Wmmevf2661 Tim RoadDublin [place] [id number] Hemoglobin Ql (U) Negative Normal Compreh ensive Internal Medicine; [facility] Work Phone: Comment on above: PATIENT WAS FASTINGP ERFORMED BY: BENITO [facility] Qqejqn3451 Tim RoadD[address] [place] [id number] Ketones Ql (U) Negative Normal Comprehens enmanuel Internal Medicine; [facility] Work Phone: Comment on above: PATIENT WAS FASTINGP ERFORMED BY: BENITO [facility] Vijomb9710 Tim RoadDublin [place] [id number] Leukocyte esterase Test strip Ql (U) Negative Normal [facility]; [facility] Work Phone: Comment on above: PATIENT WAS FASTINGP ERFORMED BY: BENITO [facility] Nukuqq7315 Tim RoadDublin [place] [id number] Microscopic observation LM Nom (Urine sed) MICRON Normal [facility]; [facility] Work Phone: Comment on above: Microscopic follows if indicated. PATIENT WAS FASTINGP ERFORMED BY: BENITO [facility] Cpcpgo5632 Tim RoadDublin [place] [id number] Microscopic observation LM Nom (Urine sed) See below: Normal [facility]; [facility] Work Phone: Comment on above: Microscopic was gianna cated and was performed. PATIENT WAS FASTINGP ERFORMED BY: BENITO Labmandeep Jpzacu2637 Tim [facility]in [place] [id number] Nitrite Ql (U) Negative Normal Comprehens enmanuel [facility]; [facility] Work Phone: Comment on above: PATIENT WAS FASTINGP ERFORMED BY: [facility] Krvhzf9719 [facility] [id number] pH (U) 6.5 [pH] Normal 5.0-7.5 [facility]; [facility] Work Phone: Comment on above: PATIENT WAS FASTINGP ERFORMED BY: Labssm rehab Npfnba2593 [facility] [id number] Protein Ql (U) Negative Normal Comprehens enmanuel [facility]; [facility] Work Phone: Comment on above: PATIENT WAS FASTINGP ERFORMED BY: Labss[facility] rehab Tgmuoo3273 [facility] [id number] Specific gravity (U) [Rel density] 1.010 1 Normal 1.005-1.03 0 [facility]; [facility] Work Phone: Comment on above: PATIENT WAS FASTINGP ERFORMED BY: [facility] Nogdxp7536 [facility] [id number] Urobilinogen (U) [Mass/Vol] 0.2 mg/dL Normal 0.2-1.0 [facility]; [facility] Work Phone: Comment on above: PATIENT WAS FASTINGP ERFORMED BY: Labssm rehab Krcjdi3668 [facility] [id number] XR Knee AP and Lateral and M erchantson 06-02-2022 IMPRESSION: Status post revision RIGHT total knee arthroplasty without apparent complication. Milieu Coordinator: JANAE Transcribe Date/Time: Jun 02 2022 10:26A Dictated by : GOMEZ TENORIO DO This examination was interpreted and the report reviewed and electronically signed by: GOMEZ TENORIO DO on Jun 02 2022 10:35AM [facility] * * *Final Report* * * DATE OF EXAM: May 30 2022 10:59AM TYSON 5209 - XR KNEE 3V AP/LAT/MERCHANT RT / PROCEDURE REASON: M25.561-Right knee pain, unspecified chronicity * * * * Physician Interpretation * * * * EXAMINATION: XR KNEE 3V AP/LAT/MERCHANT RT PATIENT/TECHNOLOGIST PROVIDED HISTORY: pjf CLINICAL INFORMATION: 66 years old Female with Right knee pain, unspecified chronicity TECHNIQUE: XR KNEE 3V AP/LAT/MERCHANT RT Laterality: RIGHT Number of different views (projections): 3 COMPARISON: Radiographs 05/15/2022, 05/01/2022 RESULT: Status post revision RIGHT total knee arthroplasty with patellar resurfacing in satisfactory alignment and position. No periprosthetic fracture. Postoperative soft tissue swelling and small joint effusion. Small amount of heterotopic mineralization adjacent to the lateral tibial plateau. Near complete resolution of postoperative soft tissue gas. Images of the LEFT knee demonstrate moderate lateral compartment osteoarthritis. [facility] Provider, Jodie Diaz [facility] - 06/02/2022 * * *Final Report* * * DATE OF EXAM: May 30 2022 10:59AM TYSON 5209 - XR KNEE 3V AP/LAT/MERCHANT RT / PROCEDURE REASON: M25.561-Right knee pain, unspecified chronicity * * * * Physician Interpretation * * * * EXAMINATION: XR KNEE 3V AP/LAT/MERCHANT RT PATIENT/TECHNOLOGIST PROVIDED HISTORY: pjf CLINICAL INFORMATION: 66 years old Female with Right knee pain, unspecified chronicity TECHNIQUE: XR KNEE 3V AP/LAT/MERCHANT RT Laterality: RIGHT Number of different views (projections): 3 COMPARISON: Radiographs 05/15/2022, 05/01/2022 RESULT: Status post revision RIGHT total knee arthroplasty with patellar resurfacing in satisfactory alignment and position. No periprosthetic fracture. Postoperative soft tissue swelling and small joint effusion. Small amount of heterotopic mineralization adjacent to the lateral tibial plateau. Near complete resolution of postoperative soft tissue gas. Images of the LEFT knee demonstrate moderate lateral compartment osteoarthritis. IMPRESSION IMPRESSION: Status post revision RIGHT total knee arthroplasty without apparent complication. Milieu Coordinator: JANAE Transcribe Date/Time: Jun 02 2022 10:26A Dictated by : GOMEZ TENORIO DO This examination was interpreted and the report reviewed and electronically signed by: GOMEZ TENORIO DO on Jun 02 2022 10:35AM EST [facility] XR Knee AP and Lateral and M erchantsOrdered By: Ccf Provider on 06-02-2022 [facility] and Lateral and M erchantson 05-30-2022 Radiology Study observation (narrative) [facility] C-REACTIVE PROTEIN (CRP)on 1 CRP [Mass/Vol] 2.0 mg/dL High <0.9 mg/dL [facility] ESR Westergren method (Bld) [Velocity]on 05-01-2022 ESR (Bld) [Velocity] 83 mm/h High 0 - 20 mm/hr [facility] C-REACTIVE PROTEIN (30742)Or dered By: Cook Syrup Maker on 04-25-2022 CRP [Mass/Vol] 8 mg/L Normal 0-10 Comprehens enmanuel [facility]; [facility] Work Phone: Comment on above: PATIENT NOT FASTINGP ERFORMED BY: iOculi70 Tim [facility]UNC [facility] [id number] BY: [employer] [address] [id number] CALCIUM SERUM (22487)Ordered By: Cook Syrup Maker on 04-25-2022 Calcium [Mass/Vol] 9.8 mg/dL Normal 8.7-10.3 [facility]; [facility] Work Phone: Comment on above: PATIENT NOT FASTINGP ERFORMED BY: Socruise Sfudap1336 3seventyUNC Health Lenoir [id number] BY: sickweather[address] [id number] CBC (AUTO) (80373)Ordered By : Cook Syrup Maker on 04-25-2022 Erythrocyte distribution width (RBC) [Ratio] 13.9 % Normal 11.7-15.4 [facility]; [facility] Work Phone: Comment on above: PATIENT NOT FASTINGP ERFORMED BY: iOculi70 [facility] [id number] BY: [address] [id number] Hematocrit (Bld) [Volume fraction] 36.0 % Normal 34.0-46.6 [facility]; [facility] Work Phone: Comment on above: PATIENT NOT FASTINGP ERFORMED BY: BENITO [facility] Aiwfex0931 [facility] [id number] BY: Lab[address] [id number] Hemoglobin (Bld) [Mass/Vol] 11.4 g/dL Normal 11.1-15.9 [facility]; [facility] Work Phone: Comment on above: PATIENT NOT FASTINGP ERFORMED BY: BENITO [facility] Seycms1833 [facility] [id number] BY: [address] [id number] MCH (RBC) [Entitic mass] 27.5 pg Normal 26.6-33.0 [facility]; [facility] Work Phone: Comment on above: PATIENT NOT FASTINGP ERFORMED BY: BENITO [facility] Znxgjx4894 [facility] [id number] BY: [address] [id number] MCHC (RBC) [Mass/Vol] 31.7 g/dL Normal 31.5-35.7 [facility]; [facility] Work Phone: Comment on above: PATIENT NOT FASTINGP ERFORMED BY: BENITO [facility] Ziedcw7246 [facility] [id number] BY: Lab[address] [id number] MCV (RBC) [Entitic vol] 87 fL Normal 79-97 [facility]; [facility] Work Phone: Comment on above: PATIENT NOT FASTINGP ERFORMED BY: BENITO [facility] Ngozzb4727 [facility] [id number] BY: [address] [id number] Platelets (Bld) [#/Vol] 399 10*3/uL Normal 150-450 [facility]; [facility] Work Phone: Comment on above: PATIENT NOT FASTINGP ERFORMED BY: BENITO [facility] Ufxipc1187 [facility] [id number] BY: Labco[address] [id number] RBC (Bld) [#/Vol] 4.14 10*6/uL Normal 3.77-5.28 [facility] Internal Medicine; [facility] Work Phone: Comment on above: PATIENT NOT FASTINGP ERFORMED BY: BENITO [facility] Rejksx4743 [facility] [id number] BY: [address] [id number] WBC (Bld) [#/Vol] 8.3 10*3/uL Normal 3.4-10.8 [facility] Internal Medicine; [facility] Work Phone: Comment on above: PATIENT NOT FASTINGP ERFORMED BY: BENITO [facility] Kuvmcu8728 [facility] [id number] BY: [address] [id number] HEPATIC FUNCTION PANEL (8007 6)Ordered By: Cook Syrup Maker on 04-25-2022 Albumin [Mass/Vol] 4.2 g/dL Normal 3.8-4.8 [facility] Internal [facility]; [facility] Work Phone: Comment on above: PATIENT NOT FASTINGP ERFORMED BY: BENITO [facility] Ocekgs6135 [facility] [id number] BY: [address] [id number] ALP [Catalytic activity/Vol] 93 U/L Normal 44-121 [facility]; [facility] Work Phone: Comment on above: PATIENT NOT FASTINGP ERFORMED BY: CB [facility] Tmqeaz0783 Tim RoadDublin [place] [id number] BY: [address] [id number] ALT [Catalytic activity/Vol] 14 U/L Normal 0-32 [facility]; [facility] Work Phone: Comment on above: PATIENT NOT FASTINGP ERFORMED BY: CB [facility] Tmqjoa1716 Tim RoadDublin [place] [id number] BY: [address] [id number] AST [Catalytic activity/Vol] 22 U/L Normal 0-40 [facility]; [facility] Work Phone: Comment on above: PATIENT NOT FASTINGP ERFORMED BY: CB [facility] Qzkvzs3786 [facility] RoadNorthern [facility] Hospital [id number] BY: [address] [id number] Bilirubin [Mass/Vol] 0.2 mg/dL Normal 0.0-1.2 [facility]; [facility] Work Phone: Comment on above: PATIENT NOT FASTINGP ERFORMED BY: CB [facility] Nwgzpm3196 Tim RoadDublin [place] [id number] BY: [address] [id number] Bilirubin.direct [Mass/Vol] 0.10 mg/dL Normal 0.00-0.40 [facility]; [facility] Work Phone: Comment on above: PATIENT NOT FASTINGP ERFORMED BY: CB [facility] Ggasqa3043 Tim [facility] [place] [id number] BY: [address] [id number] PARATHORMONE (05312)Ordered By: Cook Syrup Maker on 04-25-2022 Parathyrin.intact [Mass/Vol] 15 pg/mL Normal 15-65 [facility]; [facility] Work Phone: Comment on above: PATIENT NOT FASTINGP ERFORMED BY: BENITO [facility] Ggqsyv0439 [facility] [id number] BY: Echovox[address] [id number] PHOSPHORUS (86742)Ordered By : Cook Syrup Maker on 04-25-2022 Phosphate [Mass/Vol] 4.1 mg/dL Normal 3.0-4.3 [facility]; [facility] Work Phone: Comment on above: PATIENT NOT FASTINGP ERFORMED BY: BENITO [facility] Bndrar9129 Tim [facility] DoctorUNC [facility] [id number] BY: Echovox[address] [id number] SED RATE ERYTHROCYTE (75898) Ordered By: Cook Syrup Maker on 04-25-2022 ESR (Bld) [Velocity] 38 mm/h Normal 0-40 [facility]; [facility] Work Phone: Comment on above: PATIENT NOT FASTINGP ERFORMED BY: BENITO [facility] Sbbghf0018 [facility] [id number] BY: Echovox[address] [id number] SPEP (27392)Ordered By: Beezik em Fishing Vessel Mate on 04-25-2022 Albumin [Mass/Vol] 3.3 g/dL Normal 2.9-4.4 [facility] Internal [facility]; [facility] Work Phone: Comment on above: PATIENT NOT FASTINGP ERFORMED BY: BENITO [facility] Uwiimd0361 [facility] [id number] BY: Echovox[address] [id number] Albumin/Globulin [Mass ratio] 0.9 {ratio} Normal 0.7-1.7 [facility]; [facility] Work Phone: Comment on above: PATIENT NOT FASTINGP ERFORMED BY: BENITO [facility] Qyqany9454 [facility] [id number] BY: [address] [id number] Alpha 1 globulin Elph [Mass/Vol] 0.4 g/dL Normal 0.0-0.4 [facility]; [facility] Work Phone: Comment on above: PATIENT NOT FASTINGP ERFORMED BY: BENITO [facility] Mgndgh7714 [facility] [id number] BY: [address] [id number] Alpha 2 globulin Elph [Mass/Vol] 1.2 g/dL Abnormal 0.4-1.0 [facility]; [facility] Work Phone: Comment on above: PATIENT NOT FASTINGP ERFORMED BY: BENITO [facility] Lyajqg0846 [facility] [id number] BY: [address] [id number] Beta globulin Elph [Mass/Vol] 1.1 g/dL Normal 0.7-1.3 [facility]; [facility] Work Phone: Comment on above: PATIENT NOT FASTINGP ERFORMED BY: BENITO Mustafalin6370 [facility] [id number] BY: [address] [id number] Gamma globulin Elph [Mass/Vol] 1.0 g/dL Normal 0.4-1.8 [facility]; [facility] Work Phone: Comment on above: PATIENT NOT FASTINGP ERFORMED BY: [facility]coHam[facility] Health CenterXqdnhn0201 [facility] [id number] BY: [address] [id number] Globulin (S) [Mass/Vol] 3.6 g/dL Normal 2.2-3.9 [facility]; [facility] Work Phone: Comment on above: PATIENT NOT FASTINGP ERFORMED BY: BENITO [facility] Lmnnks3966 [facility] [id number] BY: Lab[address] [id number] Laboratory comment Jean (Report) [facility] Normal [facility]; [facility] Work Phone: Comment on above: Protein electrophore sis scan will follow via computer, mail, orcourier delivery. PATIENT NOT FASTINGP ERFORMED BY: CB [facility] Wapbfc9378 [facility] [id number] BY: Lab[address] [id number] Laboratory report . Normal Compreh ensive Internal Medicine; [facility] Work Phone: Comment on above: PATIENT NOT FASTINGP ERFORMED BY: CB [facility] Umwbui5604 [facility] [id number] BY: Lab[address] [id number] Protein [Mass/Vol] 6.9 g/dL Normal 6.0-8.5 [facility] Internal [facility]; [facility] Work Phone: Comment on above: PATIENT NOT FASTINGP ERFORMED BY: CB [facility] Mpstvz0010 [facility] [id number] BY: [address] [id number] Protein.monoclonal Elph [Mass/Vol] Not Observed Normal [facility]; [facility] Work Phone: Comment on above: PATIENT NOT FASTINGP ERFORMED BY: CB [facility] Rmekay9281 [facility] [id number] BY: Lab[address] [id number] TSH (16529)Ordered By: Darell Shculz on 04-25-2022 TSH Qn 0.770 {uIU/mL} Normal 0.450-4.50 0 [facility]; [facility] Work Phone: Comment on above: PATIENT NOT FASTINGP ERFORMED BY: CB [facility] Veggon1546 [facility] [id number] BY: [address] [id number] UPEP (74394)Ordered By: Syst em Fishing Vessel Mate on 04-25-2022 Albumin Elph (U) [Mass fraction] 37.0 % Normal [facility]; [facility] Work Phone: Comment on above: PATIENT NOT FASTINGP ERFORMED BY: [facility] Vqbhri7110 [facility] [id number] BY: [address] [id number] Alpha 1 globulin Elph (U) [Mass fraction] 3.9 % Normal [facility]; [facility] Work Phone: Comment on above: PATIENT NOT FASTINGP ERFORMED BY: [facility] Rbdoaa4823 [facility] [id number] BY: [address] [id number] Alpha 2 globulin Elph (U) [Mass fraction] 10.2 % Normal [facility]; [facility] Work Phone: Comment on above: PATIENT NOT FASTINGP ERFORMED BY: [facility] Vyzpys8021 [facility] [id number] BY: [address] [id number] Beta globulin Elph (U) [Mass fraction] 37.4 % Normal Comprehensiv e Internal Medicine; [facility] Work Phone: Comment on above: PATIENT NOT FASTINGP ERFORMED BY: [facility] Zuuogd3957 [facility] [id number] BY: [address] [id number] Gamma globulin Elph (U) [Mass fraction] 11.6 % Normal Comprehensiv e Internal Medicine; [facility] Work Phone: Comment on above: PATIENT NOT FASTINGP ERFORMED BY: [facility] Bqlxcb0495 [facility] [id number] BY: [address] [id number] Protein (U) [Mass/Vol] mg/dL Normal [facility]; [facility] Work Phone: Comment on above: Verified by repeat analysis PATIENT NOT FASTINGP ERFORMED BY: [facility] Zmamzg1700 Tim [facility] HospitalDublin [place] [id number] BY: [address] [id number] Protein.monoclonal Elph (U) [Mass fraction] Not Observed Normal [facility]; [facility] Work Phone: Comment on above: PATIENT NOT FASTINGP ERFORMED BY: [facility] Stuaen1289 [facility] [id number] BY: [address] [id number] VITAMIN D, 1, 25-DIHYDROXY ( 69062)Ordered By: Cook Syrup Maker on 04-25-2022 1,25-dihydroxyvitami n D3 [Mass/Vol] 50.6 pg/mL Normal 24.8-81.5 [facility]; [facility] Work Phone: Comment on above: Please note refere nce interval change PATIENT NOT FASTINGP ERFORMED BY: [facility] Pnljjo8601 [facility] [id number] BY: [address] [id number] Vitamin D Hydroxy (31081)Ord ered By: Cook Syrup Maker on 04-25-2022 25-hydroxyvitamin D [Mass/Vol] 58.5 ng/mL Normal 30.0-100.0 [facility]; [facility] Work Phone: Comment on above: Vitamin D deficiency has been defined by the [place] ofMedicine and an Endocrine Society practice guideline as alevel of serum 25-OH vitamin D less than 20 ng/mL (1,2).The Endocrine Society went on to further define vitamin Dinsufficiency as a level between 21 and 29 ng/mL (2).1. IOM ([place] of Medicine). 2010. Dietary reference intakes for calcium and D. [place]: The National Academies Press.2. Victorino Moraes, Alysia HENDRICKSON, et al. Evaluation, treatment, and prevention of vitamin D deficiency: an Endocrine Society clinical practice guideline. JCEM. 2010; 96(7):1911-. PATIENT NOT FASTINGP ERFORMED BY: [employer]70 3seventyUNC Health Lenoir [id number] BY: Echovox[address] [id number] CALCIFIDIOL (17825) VIT D 25 Ordered By: Cook Syrup Maker on 02-12-2022 25-hydroxyvitamin D [Mass/Vol] 51.4 ng/mL Normal 30.0-100.0 [facility]; [facility] Work Phone: Comment on above: Vitamin D deficiency has been defined by the [place] ofGal[facility] Hospitalcine and an Endocrine Society practice guideline as alevel of serum 25-OH vitamin D less than 20 ng/mL (1,2).The Endocrine Society went on to further define vitamin Dinsufficiency as a level between 21 and 29 ng/mL (2).1. IOM ([place] of Medicine). 2010. Dietary reference intakes for calcium and D. [place]: The National Academies Press.2. Latanya FERGUSON, Victorino LOYOLA, Alysia HENDRICKSON, et al. Evaluation, treatment, and prevention of vitamin D deficiency: an Endocrine Society clinical practice guideline. JCEM. 2010; 96(7):1911-30. PATIENT WAS FASTINGP ERFORMED BY: [employer]6370 [facility] [id number] CBC W/AUTO DIFF WBC (80677)O rdered By: Cook Syrup Maker on 02-12-2022 Basophils (Bld) [#/Vol] 0.1 10*3/uL Normal 0.0-0.2 [facility]; [facility] Work Phone: Comment on above: PATIENT WAS FASTINGP ERFORMED BY: AVST6370 [facility] [place] [id number] Basophils/100 WBC (Bld) 1 % Normal [facility]; [facility] Work Phone: Comment on above: PATIENT WAS FASTINGP ERFORMED BY: BENITO Long Dsgnbx1929 [facility] [place] [id number] Eosinophils (Bld) [#/Vol] 0.2 10*3/uL Normal 0.0-0.4 [facility]; [facility] Work Phone: Comment on above: PATIENT WAS FASTINGP ERFORMED BY: Annabelssm rehab Zlunff7043 Tim RoadNorthern Regional Hospital [id number] Eosinophils/100 WBC (Bld) 3 % Normal [facility]; [facility] Work Phone: Comment on above: PATIENT WAS FASTINGP ERFORMED BY: [facility] Phhala[address] [id number] Erythrocyte distribution width (RBC) [Ratio] 13.8 % Normal 11.7-15.4 [facility]; [facility] Work Phone: Comment on above: PATIENT WAS FASTINGP ERFORMED BY: Annabelssm rehab Fozidf5961 [facility] [id number] Hematocrit (Bld) [Volume fraction] 37.9 % Normal 34.0-46.6 [facility]; [facility] Work Phone: Comment on above: PATIENT WAS FASTINGP ERFORMED BY: AnnabelOlivia V[place] 1645370 [facility] [id number] Hemoglobin (Bld) [Mass/Vol] 11.8 g/dL Normal 11.1-15.9 [facility]; [facility] Work Phone: Comment on above: PATIENT WAS FASTINGP ERFORMED BY: Annabelssm rehab Wmjnhq9855 [facility] [id number] Immature granulocytes (Bld) [#/Vol] 0.0 10*3/uL Normal 0.0-0.1 [facility]; [facility] Work Phone: Comment on above: PATIENT WAS FASTINGP ERFORMED BY: Labss[facility] re[facility] Oqjrui3523 [facility] [place] [id number] Immature granulocytes/100 WBC (Bld) 0 % Normal [facility]; [facility] Work Phone: Comment on above: PATIENT WAS FASTINGP ERFORMED BY: [facility] Nogetx5246 [facility] [place] [id number] Lymphocytes (Bld) [#/Vol] 1.8 10*3/uL Normal 0.7-3.1 [facility]; [facility] Work Phone: Comment on above: PATIENT WAS FASTINGP ERFORMED BY: Labssm rehab Eqyvmb4649 [facility] [place] [id number] Lymphocytes/100 WBC (Bld) 26 % Normal [facility]; [facility] Work Phone: Comment on above: PATIENT WAS FASTINGP ERFORMED BY: [place] [id number] [facility] [id number] MCH (RBC) [Entitic mass] 27.3 pg Normal 26.6-33.0 [facility]; [facility] Work Phone: Comment on above: PATIENT WAS FASTINGP ERFORMED BY: [facility]abelTr[facility]6370 [facility]in [place] [id number] MCHC (RBC) [Mass/Vol] 31.1 g/dL Abnormal 31.5-35.7 [facility]; [facility] Work Phone: Comment on above: PATIENT WAS FASTINGP ERFORMED BY: [facility]6370 [facility] [place] [id number] MCV (RBC) [Entitic vol] 88 fL Normal 79-97 [facility]; [facility] Work Phone: Comment on above: PATIENT WAS FASTINGP ERFORMED BY: AnnabelTr[facility] Hospital6370 [facility] Hospitalblin [place] [id number] Monocytes (Bld) [#/Vol] 0.8 10*3/uL Normal 0.1-0.9 [facility]; [facility] Work Phone: Comment on above: PATIENT WAS FASTINGP ERFORMED BY: BENITO [facility] Thnide5911 Tim RoadDublin [place] [id number] Monocytes/100 WBC (Bld) 11 % Normal [facility]; [facility] Work Phone: Comment on above: PATIENT WAS FASTINGP ERFORMED BY: CB [facility] Kndrrb0083 Tim RoadDublin [place] [id number] Neutrophils (Bld) [#/Vol] 4.1 10*3/uL Normal 1.4-7.0 [facility]; [facility] Work Phone: Comment on above: PATIENT WAS FASTINGP ERFORMED BY: BENITO [facility] Lwsomr4971 Tim RoadDublin [place] [id number] Neutrophils/100 WBC (Bld) 59 % Normal [facility]; [facility] Work Phone: Comment on above: PATIENT WAS FASTINGP ERFORMED BY: BENITO [facility] Yvmaly1110 Tim RoadDublin [place] [id number] Platelets (Bld) [#/Vol] 441 10*3/uL Normal 150-450 [facility]; [facility] Work Phone: Comment on above: PATIENT WAS FASTINGP ERFORMED BY: BENITO [facility] Gdwrif8988 Tim RoadDublin [place] [id number] RBC (Bld) [#/Vol] 4.33 10*6/uL Normal 3.77-5.28 Compr ehensive Internal Medicine; [facility] Work Phone: Comment on above: PATIENT WAS FASTINGP ERFORMED BY: CB [facility] Tmeesu5778 Tim RoadDublin [place] [id number] WBC (Bld) [#/Vol] 6.9 10*3/uL Normal 3.4-10.8 Compre [facility]; [facility] Work Phone: Comment on above: PATIENT WAS FASTINGP ERFORMED BY: CB [facility] Wumiob5579 Tim RoadDublin [place] [id number] LIPID PANEL (76050)Ordered B y: Cook Syrup Maker on 02-12-2022 Cholesterol [Mass/Vol] 117 mg/dL Normal 100-199 [facility]; [facility] Work Phone: Comment on above: PATIENT WAS FASTINGP ERFORMED BY: BENITO [facility] Cpuawh6196 Tim Roadblin [place] [id number] Cholesterol in HDL [Mass/Vol] 49 mg/dL Normal [facility]; [facility] Work Phone: Comment on above: PATIENT WAS FASTINGP ERFORMED BY: CB [facility] Xefteu7049 Tim RoadCone Healthin [place] [id number] Triglyceride [Mass/Vol] 116 mg/dL Normal 0-149 [facility]; [facility] Work Phone: Comment on above: PATIENT WAS FASTINGP ERFORMED BY: CB [facility] Puwxbb2218 Tim [facility]in [place] [id number] LIPID PANEL (01680) 21 mg/dL Normal 5-40 Compr ensive [facility]; [facility] Work Phone: Comment on above: PATIENT WAS FASTINGP ERFORMED BY: CB [facility] Slgmqe0879 Tim [facility]in [place] [id number] LIPID PANEL (25125) 47 mg/dL Normal 0-99 [facility]; [facility] Work Phone: Comment on above: PATIENT WAS FASTINGP ERFORMED BY: CB [facility] Ymisbe1980 Itm [facility]in [place] [id number] LIPID PANEL (54077) 1.0 {ratio} Normal 0.0-3.2 [facility]; [facility] Work Phone: Comment on above: LDL/HDL Ratio Men Wo men 1/2 Avg.Risk 1.0 1.5 Avg.Risk 3.6 3.2 2X Avg.Risk 6.2 5.0 3X Avg.Risk 8.0 6.1 PATIENT WAS FASTINGP ERFORMED BY: CB [facility] Vurvnl3272 Tim RoadDublin [place] [id number] METABOLIC PANEL, COMPREHENSI VE (11821)Ordered By: Cook Syrup Maker on 02-12-2022 Albumin [Mass/Vol] 4.0 g/dL Normal 3.8-4.8 [facility]; [facility] Work Phone: Comment on above: PATIENT WAS FASTINGP ERFORMED BY: BENITO [facility] Lhowny5018 Tim RoadDublin [place] [id number] Albumin/Globulin [Mass ratio] 1.4 {ratio} Normal 1.2-2.2 [facility]; [facility] Medicine Work Phone: Comment on above: PATIENT WAS FASTINGP ERFORMED BY: CB [facility] Safnym4409 Tim RoadDublin [place] [id number] ALP [Catalytic activity/Vol] 87 U/L Normal 44-121 [facility]; [facility] Work Phone: Comment on above: PATIENT WAS FASTINGP ERFORMED BY: CB [facility] Wdtnnf2084 Tim RoadDublin [place] [id number] ALT [Catalytic activity/Vol] 13 U/L Normal 0-32 [facility]; [facility] Work Phone: Comment on above: PATIENT WAS FASTINGP ERFORMED BY: [facility] Rsaoyw4208 Tim RoadDublin [place] [id number] AST [Catalytic activity/Vol] 20 U/L Normal 0-40 [facility] Internal Medicine; [facility] Work Phone: Comment on above: PATIENT WAS FASTINGP ERFORMED BY: CB [facility] Afifba1111 Tim RoadDublin [place] [id number] Bilirubin [Mass/Vol] 0.2 mg/dL Normal 0.0-1.2 [facility] Internal Medicine; [facility] Internal Medicine Work Phone: Comment on above: PATIENT WAS FASTINGP ERFORMED BY: CB [facility] Sgtdsu4680 Tim RoadDublin [place] [id number] Calcium [Mass/Vol] 10.0 mg/dL Normal 8.7-10.3 [facility] Internal Medicine; [facility] Medicine Work Phone: Comment on above: PATIENT WAS FASTINGP ERFORMED BY: CB [facility] Jdwtpd7977 Tim RoadDublin [place] [id number] Chloride [Moles/Vol] 103 mmol/L Normal 96-106 Comp rehensive Internal Medicine; [facility] Work Phone: Comment on above: PATIENT WAS FASTINGP ERFORMED BY: BENITO Gatito Mcclain6370 [facility] [id number] CO2 [Moles/Vol] 27 mmol/L Normal 20-29 [facility]; [facility] Work Phone: Comment on above: PATIENT WAS FASTINGP ERFORMED BY: BENITO Annabelchristie MustafaLcwhbn4459 [facility] [id number] Creatinine [Mass/Vol] 0.72 mg/dL Normal 0.57-1.00 [facility]; [facility] Work Phone: Comment on above: PATIENT WAS FASTINGP ERFORMED BY: BENITO Annabelchristie Tewrmm3933 [facility] [id number] GFR/1.73 sq M.predicted among non-blacks MDRD (S/P/Bld) [Vol rate/Area] 91 mL/min/{1.73_m2} Normal Comprehensiv e Internal Medicine; [facility] Work Phone: Comment on above: PATIENT WAS FASTINGP ERFORMED BY: BENITO Annabelchristie Uxpzvp9488 [facility] [id number] Globulin (S) [Mass/Vol] 2.8 g/dL Normal 1.5-4.5 [facility]; [facility] Work Phone: Comment on above: PATIENT WAS FASTINGP ERFORMED BY: BENITO Annabelmandeep Jmavjy6555 [facility] [id number] Glucose [Mass/Vol] 90 mg/dL Normal 65-99 Compre [facility] Internal [facility]; [facility] Work Phone: Comment on above: PATIENT WAS FASTINGP ERFORMED BY: BENITO Annabelchristie Kllela5900 [facility] [id number] Potassium [Moles/Vol] 4.2 mmol/L Normal 3.5-5.2 [facility]; [facility] Work Phone: Comment on above: PATIENT WAS FASTINGP ERFORMED BY: BENITO Labchristie MustafaEsywms8751 Tim RoadDublin [place] [id number] Protein [Mass/Vol] 6.8 g/dL Normal 6.0-8.5 [facility]; [facility] Work Phone: Comment on above: PATIENT WAS FASTINGP ERFORMED BY: BENITO Labchristie MustafaLscjnq3455 Tim RoadDublin [place] [id number] Sodium [Moles/Vol] 142 mmol/L Normal 134-144 [facility] Internal Medicine; [facility] Work Phone: Comment on above: PATIENT WAS FASTINGP ERFORMED BY: BENITO Labchristie MustafaWntuah8159 Tim RoadDublin [place] [id number] Urea nitrogen [Mass/Vol] 8 mg/dL Normal 8-27 [facility]; [facility] Work Phone: Comment on above: PATIENT WAS FASTINGP ERFORMED BY: BENITO Mustafalin6370 Tim RoadDublin [place] [id number] Urea nitrogen/Creatinine [Mass ratio] 11 mg/mg Abnormal 12-28 [facility]; [facility] Work Phone: Comment on above: PATIENT WAS FASTINGP ERFORMED BY: BENITO Mustafalin6370 [address] RoadDublin [place] [id number] MICROALBUMINOrdered By: Syst em Fishing Vessel Mate on 02-12-2022 Albumin DL <= 20 mg/L (U) [Mass/Vol] 8.4 ug/mL Normal Comprehensiv e Internal Medicine; [facility] Work Phone: Comment on above: PATIENT WAS FASTINGP ERFORMED BY: BEINTO Labchristie Irhyzg3862 Tim RoadDublin [place] [id number] Albumin/Creatinine (U) [Mass ratio] 14 {mg/g_creat} Normal 0-29 [facility]; [facility] Work Phone: Comment on above: Normal: 0 - 29 Moder ately increased: 30 - 300 Severely increased: >300 PATIENT WAS FASTINGP ERFORMED BY: BENITO Labchristie Mngtko6836 Tim RoadDublin [place] [id number] Creatinine (U) [Mass/Vol] 61.3 mg/dL Normal [facility]; [facility] Work Phone: Comment on above: PATIENT WAS FASTINGP ERFORMED BY: BENITO Gatito Mcclain6[address] RoadDublin [place] [id number] TSH (72812)Ordered By: Brand.net m Fishing Vessel Mate on 02-12-2022 TSH Qn 0.909 {uIU/mL} Normal 0.450-4.50 0 [facility]; [facility] Work Phone: Comment on above: PATIENT WAS FASTINGP ERFORMED BY: BENITO Gatito Mcclain6[address] RoadDublin [place] [id number] URINALYSIS, W/ MICRO (72103) Ordered By: Cook Syrup Maker on 02-12-2022 Appearance (U) Clear Normal Comprehens enmanuel Internal Medicine; [facility] Work Phone: Comment on above: PATIENT WAS FASTINGP ERFORMED BY: BENITO Gatito Bovahn5353 Tim RoadDublin [place] [id number] Bilirubin Ql (U) Negative Normal Comprehe nsive Internal Medicine; [facility] Work Phone: Comment on above: PATIENT WAS FASTINGP ERFORMED BY: BENITO Gatito Mcclain6370 [address] RoadDublin [place] [id number] Color (U) Yellow Normal [facility]; [facility] Work Phone: Comment on above: PATIENT WAS FASTINGP ERFORMED BY: BENITO Gatito Mustafalin6370 [address] RoadDublin [place] [id number] Glucose Ql (U) Negative Normal Comprehens enmanuel Internal Medicine; [facility] Work Phone: Comment on above: PATIENT WAS FASTINGP ERFORMED BY: BENITO Labchristie Qidzrc3946 Tim RoadDublin [place] [id number] Hemoglobin Ql (U) 2+ Abnormal Compreh ensive Internal Medicine; [facility] Work Phone: Comment on above: PATIENT WAS FASTINGP ERFORMED BY: BENITO Labmandeepmary Oxcqde1114 Tim RoadDublin [place] [id number] Ketones Ql (U) Negative Normal Comprehens enmanuel Internal Medicine; [facility] Work Phone: Comment on above: PATIENT WAS FASTINGP ERFORMED BY: BENITO Gatito Mcclain6370 Tim [facility]bl[facility] [place] [id number] Leukocyte esterase Test strip Ql (U) 2+ Abnormal [facility]; [facility] Work Phone: Comment on above: PATIENT WAS FASTINGP ERFORMED BY: BENITO Gatito Mcclain6370 Tim [facility]in [place] [id number] Microscopic observation LM Nom (Urine sed) See below: Normal [facility]; [facility] Work Phone: Comment on above: Microscopic was gianna cated and was performed. PATIENT WAS FASTINGP ERFORMED BY: BENITO Gatito Mustafalin6370 Tim [facility] [id number] Nitrite Ql (U) Negative Normal Comprehens enmanuel Internal Medicine; [facility] Work Phone: Comment on above: PATIENT WAS FASTINGP ERFORMED BY: BENITO Aron Ijaqpo8502 [facility] [id number] pH (U) 6.0 [pH] Normal 5.0-7.5 [facility]; [facility] Work Phone: Comment on above: PATIENT WAS FASTINGP ERFORMED BY: BENITO Gatito Mustafalin6370 Tim [facility]in [place] [id number] Protein Ql (U) Negative Normal Comprehens enmanuel Internal Medicine; [facility] Work Phone: Comment on above: PATIENT WAS FASTINGP ERFORMED BY: BENITO [facility] Nvfgri9640 [facility] [id number] Specific gravity (U) [Rel density] 1.010 1 Normal 1.005-1.03 0 [facility]; [facility] Work Phone: Comment on above: PATIENT WAS FASTINGP ERFORMED BY: BENITO Labssm rehab Nlovxo5562 Tim [facility]in [place] [id number] Urobilinogen (U) [Mass/Vol] 0.2 mg/dL Normal 0.2-1.0 [facility]; [facility] Work Phone: Comment on above: PATIENT WAS FASTINGP ERFORMED BY: BENITO Labcomary McclainHdulju5741 Tim RoadDublin [place] [id number] POTASSIUM SERUM (15540)Order ed By: Cook Syrup Maker on 08-01-2021 Potassium [Moles/Vol] 5.0 mmol/L Normal 3.5-5.2 [facility]; [facility] Work Phone: Comment on above: PATIENT NOT FASTINGP ERFORMED BY: BENITO [facility] Prugmg5325 Tim RoadDublin [place] [id number] METABOLIC PANEL, COMPREHENSI VE (47264)Ordered By: Cook Syrup Maker on 07-31-2021 Albumin [Mass/Vol] 4.2 g/dL Normal 3.8-4.8 [facility] Internal [facility]; [facility] Work Phone: Comment on above: PATIENT NOT FASTINGP ERFORMED BY: BENITO Mustafalin6[address] RoadDublin [place] [id number] Albumin/Globulin [Mass ratio] 1.6 {ratio} Normal 1.2-2.2 [facility]; [facility] Work Phone: Comment on above: PATIENT NOT FASTINGP ERFORMED BY: BENITO Mustafalin6370 [address] RoadDublin [place] [id number] ALP [Catalytic activity/Vol] 101 U/L Normal 44-121 [facility]; [facility] Work Phone: Comment on above: Please note refere nce interval change PATIENT NOT FASTINGP ERFORMED BY: BENITO [facility] Lxawad0208 Tim RoadDublin [place] [id number] ALT [Catalytic activity/Vol] 15 U/L Normal 0-32 [facility]; [facility] Work Phone: Comment on above: PATIENT NOT FASTINGP ERFORMED BY: BENITO [facility] Naknzm5295 Tim RoadDublin [place] [id number] AST [Catalytic activity/Vol] 25 U/L Normal 0-40 [facility]; [facility] Work Phone: Comment on above: PATIENT NOT FASTINGP ERFORMED BY: BENITO Mcclain6370 Tim [facility] HospitalSanchezin [place] [id number] Bilirubin [Mass/Vol] mg/dL Normal 0.0-1.2 Comp rehensive Internal Medicine; [facility] Work Phone: Comment on above: PATIENT NOT FASTINGP ERFORMED BY: BENITO Mcclain6370 Tim [facility] [id number] Calcium [Mass/Vol] 10.0 mg/dL Normal 8.7-10.3 [facility] Internal [facility]; [facility] Work Phone: Comment on above: PATIENT NOT FASTINGP ERFORMED BY: BENITO Mcclain6370 Tim [facility]in [place] [id number] Chloride [Moles/Vol] 105 mmol/L Normal 96-106 Comp rehensive Internal Medicine; [facility] Work Phone: Comment on above: PATIENT NOT FASTINGP ERFORMED BY: BENITO Mcclain6370 Tim [facility] [id number] CO2 [Moles/Vol] 27 mmol/L Normal 20-29 [facility]; [facility] Work Phone: Comment on above: PATIENT NOT FASTINGP ERFORMED BY: BENITO Mcclain6370 [facility] [id number] Creatinine [Mass/Vol] 0.66 mg/dL Normal 0.57-1.00 [facility]; [facility] Work Phone: Comment on above: PATIENT NOT FASTINGP ERFORMED BY: BENITO Mustafalin6370 [facility] [id number] GFR/1.73 sq M.predicted among blacks CKD-EPI (S/P/Bld) [Vol rate/Area] 106 mL/min/1.73 Normal [facility]; [facility] Work Phone: Comment on above: In accordance with recommendations from the NKF-ASN Task force, [facility] is in the process of updating its eGFR calculation to the 2020 CKD-EPI creatinine equation that estimates kidney function without a race variable. PATIENT NOT FASTINGP ERFORMED BY: [facility] Dgcgvh1666 Tim RoadDublin [place] [id number] GFR/1.73 sq M.predicted among non-blacks CKD-EPI (S/P/Bld) [Vol rate/Area] 92 mL/min/1.73 Normal [facility]; [facility] Work Phone: Comment on above: PATIENT NOT FASTINGP ERFORMED BY: [facility] Impqra4725 Tim RoadDublin [place] [id number] Globulin (S) [Mass/Vol] 2.6 g/dL Normal 1.5-4.5 [facility]; [facility] Work Phone: Comment on above: PATIENT NOT FASTINGP ERFORMED BY: [facility] Wifemf6117 Tim RoadDublin [place] [id number] Glucose [Mass/Vol] 94 mg/dL Normal 65-99 [facility] Internal [facility]; [facility] Work Phone: Comment on above: PATIENT NOT FASTINGP ERFORMED BY: [facility] Eonxeg9419 Tim RoadDublin [place] [id number] Potassium [Moles/Vol] 5.3 mmol/L Abnormal 3.5-5.2 [facility]; [facility] Work Phone: Comment on above: PATIENT NOT FASTINGP ERFORMED BY: [facility] Cpolzz9758 Tim RoadDublin [place] [id number] Protein [Mass/Vol] 6.8 g/dL Normal 6.0-8.5 [facility] Internal [facility]; [facility] Work Phone: Comment on above: PATIENT NOT FASTINGP ERFORMED BY: [facility] Ypzmtx0291 Tim RoadDublin [place] [id number] Sodium [Moles/Vol] 143 mmol/L Normal 134-144 [facility]; [facility] Work Phone: Comment on above: PATIENT NOT FASTINGP ERFORMED BY: [facility] Mgbngr2116 Tim RoadDublin [place] [id number] Urea nitrogen [Mass/Vol] 11 mg/dL Normal 8-27 [facility]; [facility] Work Phone: Comment on above: PATIENT NOT FASTINGP ERFORMED BY: BENITO EchovoxHampton Behavioral Health CenterQgkozo7367 [facility] [id number] Urea nitrogen/Creatinine [Mass ratio] 17 mg/mg Normal 12-28 [facility]; [facility] Work Phone: Comment on above: PATIENT NOT FASTINGP ERFORMED BY: EchovoxHampton Behavioral Health CenterHmatym0214 [facility] [id number] CALCIFEDIOL (77472)Ordered B y: Cook Syrup Maker on 01-07-2021 25-hydroxyvitamin D [Mass/Vol] 56.0 ng/mL Normal 30.0-100.0 [facility]; [facility] Work Phone: Comment on above: Vitamin D deficiency has been defined by the [place] ofGal[facility] Hospitalcine and an Endocrine Society practice guideline as alevel of serum 25-OH vitamin D less than 20 ng/mL (1,2).The Endocrine Society went on to further define vitamin Dinsufficiency as a level between 21 and 29 ng/mL (2).1. IOM ([place] of Medicine). 2010. Dietary reference intakes for calcium and D. [place]: The National Academies Press.2. Latanya MF, Victorino LOYOLA, Alysia HENDRICKSON, et al. Evaluation, treatment, and prevention of vitamin D deficiency: an Endocrine Society clinical practice guideline. JCEM. 2010; 96(7):1911-30. Test(s) 756295-FAJ-U ; 291471-SLG-Z; 363443-Kmvyvpakpftdu; 921490-Qhqmnpotvji, Total; 640296-CVA-W (Total); 223426-Wjmga LDL-P; 327054-QKL Size; 484045-BN-GK Scorewas developed and its performance characteristics determinedby [employer]. It has not been cleared or approved by the Foodand Drug Administration.PATIENT WAS FASTINGPERFORMED BY: Newlans[address] [id number] BY: NewlansGarden City Hospital6370 [facility] [id number] CBC & PLATELETS (AUTO) (8502 7)Ordered By: Cook Syrup Maker on 01-07-2021 Erythrocyte distribution width (RBC) [Ratio] 13.5 % Normal 11.7-15.4 [facility]; [facility] Work Phone: Comment on above: Test(s) 337096-PLA-E ; 074678-HPR-U; 468261-Dnbuqouopehwo; 080444-Hlbeywvobjj, Total; 737108-LIO-U (Total); 617642-Sucsl LDL-P; 767165-HVR Size; 837343-GO-JJ Scorewas developed and its performance characteristics determinedby [employer]. It has not been cleared or approved by the Foodand Drug Administration.PATIENT WAS FASTINGPERFORMED BY: REVENUE.com[address] [id number] BY: iChange70 3seventyUNC Health Lenoir [id number] Hematocrit (Bld) [Volume fraction] 38.0 % Normal 34.0-46.6 [facility]; [facility] Work Phone: Comment on above: Test(s) 297813-XXV-P ; 480404-JRI-F; 076950-Hoijkbdtkoeme; 755914-Zdohweyqkyh, Total; 431316-OXS-S (Total); 164162-Lnksz LDL-P; 956178-QML Size; 984385-BG-OZ Scorewas developed and its performance characteristics determinedby [employer]. It has not been cleared or approved by the Foodand Drug Administration.PATIENT WAS FASTINGPERFORMED BY: [employer] [address] [id number] BY: Pinocular6370 3seventyUNC Health Lenoir [id number] Hemoglobin (Bld) [Mass/Vol] 11.9 g/dL Normal 11.1-15.9 [facility]; [facility] Work Phone: Comment on above: Test(s) 957436-NDM-R ; 720528-YHC-O; 247917-Eifqwupbgdaea; 896983-Vxxojgdymso, Total; 109235-XYN-H (Total); 924080-Khmof LDL-P; 650708-GWR Size; 876682-YC-KH Scorewas developed and its performance characteristics determinedby [employer]. It has not been cleared or approved by the Foodand Drug Administration.PATIENT WAS FASTINGPERFORMED BY: [employer] [id number] BY: [employer] Lfqwdi0154 [facility] [id number] MCH (RBC) [Entitic mass] 27.4 pg Normal 26.6-33.0 [facility]; [facility] Work Phone: Comment on above: Test(s) 902388-CEQ-M ; 682495-CEL-R; 874599-Kczvpnknuiqfz; 765522-Envdaxoiybq, Total; 233868-VQJ-W (Total); 649019-Kkgoh LDL-P; 811430-NKB Size; 198145-RK-PQ Scorewas developed and its performance characteristics determinedby [employer]. It has not been cleared or approved by the Foodand Drug Administration.PATIENT WAS FASTINGPERFORMED BY: [employer] [address] [id number] BY: [employer] Hkauzu3223 [facility] [id number] MCHC (RBC) [Mass/Vol] 31.3 g/dL Abnormal 31.5-35.7 [facility]; [facility] Work Phone: Comment on above: Test(s) 232227-ATG-S ; 562132-NRI-R; 506234-Dibrnnbhjajpl; 581708-Isghbcmdfxg, Total; 015129-RPU-P (Total); 387414-Mqybh LDL-P; 406641-GOS Size; 245402-DI-VA Scorewas developed and its performance characteristics determinedby [employer]. It has not been cleared or approved by the Foodand Drug Administration.PATIENT WAS FASTINGPERFORMED BY: [employer] [id number] BY: [employer] IncHampton Behavioral Health CenterLhmrhh1008 [facility] [id number] MCV (RBC) [Entitic vol] 88 fL Normal 79-97 [facility] Internal Medicine; [facility] Work Phone: Comment on above: Test(s) 698953-XZH-D ; 718301-ILU-C; 770917-Owkztojhbqjqr; 299082-Pqcelhdxnnn, Total; 266264-QSH-N (Total); 393837-Yblih LDL-P; 166266-RWO Size; 861403-NU-XL Scorewas developed and its performance characteristics determinedby [employer]. It has not been cleared or approved by the Foodand Drug Administration.PATIENT WAS FASTINGPERFORMED BY: [employer] [place] [address] [id number] BY: iChange70 3seventyUNC Health Lenoir [id number] Platelets (Bld) [#/Vol] 370 10*3/uL Normal 150-450 [facility] Internal Medicine; [facility] Work Phone: Comment on above: Test(s) 582362-QSR-E ; 628920-BGK-Z; 168435-Eryiglkxiepfh; 558123-Pyieowfyint, Total; 872865-MVQ-I (Total); 867852-Uzvbz LDL-P; 765708-WOA Size; 903435-NT-HC Scorewas developed and its performance characteristics determinedby [employer]. It has not been cleared or approved by the Foodand Drug Administration.PATIENT WAS FASTINGPERFORMED BY: [employer] [place] [address] [id number] BY: [facility]Change[facility] [id number] RBC (Bld) [#/Vol] 4.34 10*6/uL Normal 3.77-5.28 [facility] Internal Medicine; [facility] Internal Medicine Work Phone: Comment on above: Test(s) 292513-TVL-U ; 165732-IKK-U; 351764-Zoepeahitfyic; 484128-Fjijhwmizrn, Total; 343787-FXL-K (Total); 799852-Hmjrp LDL-P; 386371-ENN Size; 368595-OL-VH Scorewas developed and its performance characteristics determinedby [employer]. It has not been cleared or approved by the Foodand Drug Administration.PATIENT WAS FASTINGPERFORMED BY: Ahometo[address] [id number] BY: [employer] [id number] [facility] [id number] WBC (Bld) [#/Vol] 7.3 10*3/uL Normal 3.4-10.8 [facility] Internal Medicine; [facility] Work Phone: Comment on above: Test(s) 904352-SOZ-Z ; 796693-EAG-B; 015358-Eatcveynmnqrs; 023563-Eqxtxknwius, Total; 895629-YNM-M (Total); 336696-Lalwl LDL-P; 227742-CZG Size; 418196-FI-XZ Scorewas developed and its performance characteristics determinedby [employer]. It has not been cleared or approved by the Foodand Drug Administration.PATIENT WAS FASTINGPERFORMED BY: [employer] [address] [id number] BY: [facility] Uovxef9146 [facility] [id number] METABOLIC PANEL, COMPREHENSI VE (64359)Ordered By: Cook Syrup Maker on 01-07-2021 Albumin [Mass/Vol] 4.0 g/dL Normal 3.8-4.8 [facility] Internal Medicine; [facility] Work Phone: Comment on above: Test(s) 666144-DHI-P ; 358357-SYR-H; 847096-Dsfgmfcmcafvi; 671296-Vfwnhqajrow, Total; 178593-MGQ-A (Total); 489193-Bdbcv LDL-P; 817382-OVX Size; 857392-OJ-OY Scorewas developed and its performance characteristics determinedby [employer]. It has not been cleared or approved by the Foodand Drug Administration.PATIENT WAS FASTINGPERFORMED BY: [employer] [address] [id number] BY: [facility] Qtuznh2915 [facility] [id number] Albumin/Globulin [Mass ratio] 1.5 {ratio} Normal 1.2-2.2 [facility]; [facility] Work Phone: Comment on above: Test(s) 326164-FCO-V ; 150141-HAQ-Z; 517114-Fhwakrgtjxkjd; 597569-Gqyaqmkzumg, Total; 807977-XOY-A (Total); 862546-Wsucc LDL-P; 453782-KQQ Size; 437788-WL-OW Scorewas developed and its performance characteristics determinedby [employer]. It has not been cleared or approved by the Foodand Drug Administration.PATIENT WAS FASTINGPERFORMED BY: REVENUE.com[address] [id number] BY: [employer] Tiuwkq4232 [facility] [id number] ALP [Catalytic activity/Vol] 93 U/L Normal 48-121 [facility]; [facility] Work Phone: Comment on above: Test(s) 373589-TDX-I ; 970897-NEV-F; 475338-Pechlpkbilrcd; 009637-Driijmqbtyx, Total; 851240-SKX-T (Total); 278561-Jttht LDL-P; 195434-QSM Size; 703719-NZ-RY Scorewas developed and its performance characteristics determinedby [employer]. It has not been cleared or approved by the Foodand Drug Administration.PATIENT WAS FASTINGPERFORMED BY: [employer] [address] [id number] BY: [employer] Ibzotb4079 [facility] [id number] ALT [Catalytic activity/Vol] 10 U/L Normal 0-32 [facility]; [facility] Work Phone: Comment on above: Test(s) 570162-AEJ-W ; 671041-TUC-K; 757191-Vbjkjiemlnfuz; 848788-Kposwxuhkov, Total; 509010-GPL-T (Total); 380788-Rqqka LDL-P; 273934-CPN Size; 103403-GZ-KN Scorewas developed and its performance characteristics determinedby [employer]. It has not been cleared or approved by the Foodand Drug Administration.PATIENT WAS FASTINGPERFORMED BY: [employer] [address] [id number] BY: [employer] IncPresbyterian HospitalRzuqtr0828 [facility] [id number] AST [Catalytic activity/Vol] 20 U/L Normal 0-40 [facility]; [facility] Work Phone: Comment on above: Test(s) 945984-RMB-J ; 501077-PQD-S; 529132-Somiaferovehu; 121870-Klplrknjozz, Total; 060079-UVI-C (Total); 553458-Ayecu LDL-P; 566719-CTE Size; 935724-GU-QL Scorewas developed and its performance characteristics determinedby [employer]. It has not been cleared or approved by the Foodand Drug Administration.PATIENT WAS FASTINGPERFORMED BY: [employer] [address] [id number] BY: [employer] Jbnxoa9756 [facility] [id number] Bilirubin [Mass/Vol] 0.2 mg/dL Normal 0.0-1.2 [facility] Internal Medicine; [facility] Work Phone: Comment on above: Test(s) 312782-HQL-X ; 053066-OXJ-F; 091646-Tojsmngpetfph; 311207-Iovossaurug, Total; 779268-EOC-N (Total); 864612-Unzhq LDL-P; 526421-INL Size; 215826-QO-XG Scorewas developed and its performance characteristics determinedby [employer]. It has not been cleared or approved by the Foodand Drug Administration.PATIENT WAS FASTINGPERFORMED BY: Ahometo[address] [id number] BY: [employer] Tele[employer] IncHampton Behavioral Health CenterUdzndx1627 [facility] [id number] Calcium [Mass/Vol] 9.6 mg/dL Normal 8.7-10.3 [facility] Internal Medicine; [facility] Work Phone: Comment on above: Test(s) 853064-OXX-U ; 499397-LFG-B; 979894-Rdxfueowmblhs; 974654-Zeharijswnv, Total; 958059-QOV-U (Total); 664142-Iutdk LDL-P; 497277-SPT Size; 264350-XC-UU Scorewas developed and its performance characteristics determinedby [employer]. It has not been cleared or approved by the Foodand Drug Administration.PATIENT WAS FASTINGPERFORMED BY: [employer] [address] [id number] BY: iChange70 [facility] [id number] Chloride [Moles/Vol] 106 mmol/L Normal 96-106 [facility] Internal Medicine; [facility] Work Phone: Comment on above: Test(s) 580465-OHQ-W ; 676233-GEM-T; 937475-Kseaasbwkhchu; 567087-Flfvobijwby, Total; 728060-TLD-W (Total); 781925-Xjmbu LDL-P; 076322-PEA Size; 161880-WU-AH Scorewas developed and its performance characteristics determinedby [employer]. It has not been cleared or approved by the Foodand Drug Administration.PATIENT WAS FASTINGPERFORMED BY: [employer] [address] [id number] BY: [employer] Phnfyb9355 [facility] [id number] CO2 [Moles/Vol] 27 mmol/L Normal 20-29 [facility] Internal Medicine; [facility] Work Phone: Comment on above: Test(s) 954691-SVL-R ; 023960-CRS-N; 967888-Hzrdovelglshf; 063034-Qcohtgforst, Total; 514925-HTS-B (Total); 126825-Vqhnb LDL-P; 750707-APK Size; 950012-UK-ZW Scorewas developed and its performance characteristics determinedby [employer]. It has not been cleared or approved by the Foodand Drug Administration.PATIENT WAS FASTINGPERFORMED BY: BN LabCo[address] [id number] BY: [employer] IncHampton Behavioral Health CenterPlpiri4925 [facility] [id number] Creatinine [Mass/Vol] 0.73 mg/dL Normal 0.57-1.00 [facility]; [facility] Work Phone: Comment on above: Test(s) 997226-LHL-R ; 454415-JUI-A; 676058-Zuuglevwjpnko; 744959-Kgdonihbayq, Total; 002550-QZZ-R (Total); 566374-Epcnh LDL-P; 652214-ZGK Size; 219139-IK-VS Scorewas developed and its performance characteristics determinedby [employer]. It has not been cleared or approved by the Foodand Drug Administration.PATIENT WAS FASTINGPERFORMED BY: [employer] [address] [id number] BY: [employer] Ggovls4296 [facility] [id number] GFR/1.73 sq M.predicted among blacks CKD-EPI (S/P/Bld) [Vol rate/Area] 99 mL/min/1.73 Normal [facility]; [facility] Work Phone: Comment on above: [facility] currently reports eGFR in compliance with the current recommendations of the National Kidney Foundation. [facility] will update reporting as new guidelines are published from the NKF-ASN Task force. Test(s) 897478-WJK-W ; 039354-XIJ-M; 655538-Iyoxkzggkebgf; 462947-Fwchrcruhqx, Total; 696699-DKW-E (Total); 469217-Cfmqh LDL-P; 551698-MUB Size; 905732-BZ-BQ Scorewas developed and its performance characteristics determinedby [employer]. It has not been cleared or approved by the Foodand Drug Administration.PATIENT WAS FASTINGPERFORMED BY: [employer] [address] [id number] BY: [employer] Tele[employer] IncHampton Behavioral Health CenterZazvwr6373 [facility] [id number] GFR/1.73 sq M.predicted among non-blacks CKD-EPI (S/P/Bld) [Vol rate/Area] 85 mL/min/1.73 Normal [facility]; [facility] Work Phone: Comment on above: Test(s) 499636-WNQ-Q ; 221042-HKG-H; 939824-Mhbogriwkdbdu; 976831-Bakvjcxpoyq, Total; 045004-UAZ-O (Total); 267564-Hgoqt LDL-P; 767449-UGR Size; 151051-AO-QI Scorewas developed and its performance characteristics determinedby [employer]. It has not been cleared or approved by the Foodand Drug Administration.PATIENT WAS FASTINGPERFORMED BY: [employer] [facility] [id number] BY: iChange70 [facility] [id number] Globulin (S) [Mass/Vol] 2.6 g/dL Normal 1.5-4.5 [facility] Internal Medicine; [facility] Work Phone: Comment on above: Test(s) 352962-IZO-M ; 949910-IBL-N; 068899-Iftkcdtqgohkd; 913444-Manoabwvaov, Total; 408944-USL-G (Total); 512165-Ggxxc LDL-P; 059941-GXL Size; 145574-YI-AB Scorewas developed and its performance characteristics determinedby [employer]. It has not been cleared or approved by the Foodand Drug Administration.PATIENT WAS FASTINGPERFORMED BY: REVENUE[employer]com[address] [id number] BY: Pinocular6370 [facility] [id number] Glucose [Mass/Vol] 92 mg/dL Normal 65-99 [facility] Internal Medicine; [facility] Work Phone: Comment on above: Test(s) 986386-GDP-V ; 511972-YDR-U; 291119-Yociepzmtifjz; 087271-Hbxujiadbwg, Total; 897989-DUG-R (Total); 952453-Zreth LDL-P; 363292-KZF Size; 346983-EG-HW Scorewas developed and its performance characteristics determinedby [employer]. It has not been cleared or approved by the Foodand Drug Administration.PATIENT WAS FASTINGPERFORMED BY: Ahometo[address] [id number] BY: [employer] Oqpkfg4918 [facility] [id number] Potassium [Moles/Vol] 5.3 mmol/L Abnormal 3.5-5.2 [facility]; [facility] Work Phone: Comment on above: Test(s) 726650-IYQ-M ; 038234-VZZ-Y; 114446-Mttpviuwrerph; 018033-Aeyfmiwaccn, Total; 317771-VJE-L (Total); 031712-Mpvre LDL-P; 334051-IEV Size; 180472-YN-PZ Scorewas developed and its performance characteristics determinedby [employer]. It has not been cleared or approved by the Foodand Drug Administration.PATIENT WAS FASTINGPERFORMED BY: [employer] [address] [id number] BY: iChange70 [facility], IncNorthern Regional Hospital [id number] Protein [Mass/Vol] 6.6 g/dL Normal 6.0-8.5 [facility] Internal Medicine; [facility] Work Phone: Comment on above: Test(s) 228243-XAA-D ; 944571-QWV-X; 009755-Cfqmvhzzwaodi; 898229-Iwuowwrpssg, Total; 119009-ZAN-Z (Total); 562653-Spggp LDL-P; 581762-JDP Size; 609628-WX-TE Scorewas developed and its performance characteristics determinedby [employer]. It has not been cleared or approved by the Foodand Drug Administration.PATIENT WAS FASTINGPERFORMED BY: [employer] [id number] BY: [employer] IncHampton Behavioral Health CenterWaolqu2316 [facility] [id number] Sodium [Moles/Vol] 145 mmol/L Abnormal 134-144 Compre hensive Internal Medicine; [facility] Work Phone: Comment on above: Test(s) 053213-GKK-U ; 182330-UZL-W; 640221-Rrcdehqmtqniq; 266794-Esxalythvkw, Total; 534813-SFA-H (Total); 982348-Fjrdw LDL-P; 514101-XZB Size; 654074-OH-PY Scorewas developed and its performance characteristics determinedby [employer]. It has not been cleared or approved by the Foodand Drug Administration.PATIENT WAS FASTINGPERFORMED BY: [employer] [address] [id number] BY: [facility]Northern [facility] Hospital [id number] Urea nitrogen [Mass/Vol] 12 mg/dL Normal 8-27 [facility]; [facility] Work Phone: Comment on above: Test(s) 433218-SIT-G ; 561083-AIR-M; 593955-Qtoimsxbfhuwn; 166219-Ohpxqzdziov, Total; 303478-PDE-N (Total); 112123-Zdidu LDL-P; 969655-AQS Size; 843901-EC-VZ Scorewas developed and its performance characteristics determinedby [employer]. It has not been cleared or approved by the Foodand Drug Administration.PATIENT WAS FASTINGPERFORMED BY: [employer] [address] [id number] BY: iChange70 [facility] [id number] Urea nitrogen/Creatinine [Mass ratio] 16 mg/mg Normal 12-28 [facility]; [facility] Work Phone: Comment on above: Test(s) 397997-QIV-V ; 603636-IIU-B; 439608-Evnmujoptvgmi; 676448-Ooeyelefhpb, Total; 581388-RUJ-E (Total); 766080-Pmxjz LDL-P; 138393-QAC Size; 994271-GU-KP Scorewas developed and its performance characteristics determinedby [employer]. It has not been cleared or approved by the Foodand Drug Administration.PATIENT WAS FASTINGPERFORMED BY: [employer] [address] [id number] BY: iChange70 3se[facility]yUNC [facility] [id number] MICROALB;CREAT RATION, RAND UR (85109)Ordered By: Cook Syrup Maker on 01-07-2021 Albumin DL <= 20 mg/L (U) [Mass/Vol] 7.1 ug/mL Normal Comprehensiv e Internal Medicine; [facility] Work Phone: Comment on above: Test(s) 110907-ZNW-Z ; 804451-MDR-N; 414006-Hdnuwggpibuhd; 631167-Clynegipvfi, Total; 282568-RVG-A (Total); 203497-Liipm LDL-P; 276553-JAZ Size; 998456-UQ-QS Scorewas developed and its performance characteristics determinedby [employer]. It has not been cleared or approved by the Foodand Drug Administration.PATIENT WAS FASTINGPERFORMED BY: [employer] [address] [id number] BY: iChange70 3seventyUNC Health Lenoir [id number] Albumin/Creatinine (U) [Mass ratio] 12 {mg/g_creat} Normal 0-29 [facility]; [facility] Work Phone: Comment on above: Normal: 0 - 29 Moder ately increased: 30 - 300 Severely increased: >300 Test(s) 534013-ISJ-T ; 335253-TOQ-N; 688516-Zsbzescvqmcjy; 366504-Ylbqpxkcidv, Total; 619749-BJJ-Q (Total); 374378-Rzirx LDL-P; 199100-INJ Size; 242941-UF-OM Scorewas developed and its performance characteristics determinedby [employer]. It has not been cleared or approved by the Foodand Drug Administration.PATIENT WAS FASTINGPERFORMED BY: [employer] [address] [id number] BY: iChange70 3seventyUNC Health Lenoir [id number] Creatinine (U) [Mass/Vol] 59.7 mg/dL Normal [facility]; [facility] Work Phone: Comment on above: Test(s) 708448-PGT-Y ; 545322-XHA-I; 357791-Odkfcbyfpfemi; 846248-Qgqhncydfft, Total; 232357-HDD-J (Total); 773553-Uxvhj LDL-P; 310050-IBL Size; 076850-OD-AB Scorewas developed and its performance characteristics determinedby [employer]. It has not been cleared or approved by the Foodand Drug Administration.PATIENT WAS FASTINGPERFORMED BY: RE[employer]UE[employer]com[address] [id number] BY: iChange70 [facility] [id number] NMR Profile (16929)Ordered B y: Cook Syrup Maker on 01-07-2021 Cholesterol [Mass/Vol] 126 mg/dL Normal 100-199 [facility]; [facility] Work Phone: Comment on above: Test(s) 393834-MEP-I ; 025544-IEC-P; 011325-Ouzptdvervbhz; 785831-Bfejpdmvlcw, Total; 054840-UGA-R (Total); 322373-Gthvf LDL-P; 504449-MEE Size; 407275-MJ-SF Scorewas developed and its performance characteristics determinedby [employer]. It has not been cleared or approved by the Foodand Drug Administration.PATIENT WAS FASTINGPERFORMED BY: REVENUE.com[address] [id number] BY: [employer] Hamhpg9934 [facility] [id number] Lipoprotein.alpha [Moles/Vol] 36.7 umol/L Normal [facility]; [facility] Work Phone: Comment on above: Test(s) 503366-YVE-T ; 656995-RSJ-J; 472505-Noydsifvrdljt; 451881-Lustbooofeo, Total; 050315-IGV-D (Total); 263759-Funbr LDL-P; 555798-DHF Size; 570734-NL-WW Scorewas developed and its performance characteristics determinedby [employer]. It has not been cleared or approved by the Foodand Drug Administration.PATIENT WAS FASTINGPERFORMED BY: [employer] [address] [id number] BY: [employer] Ttiztg6216 [facility] [id number] Lipoprotein.beta.sub particle [Entitic length] 20.7 nm Normal [facility]; [facility] Work Phone: Comment on above: INTERPRETATIVE INFORMATION PARTICLE CONCENTRATION AND SIZE <--Lower CVD Risk Higher CVD Risk--> LDL AND HDL PARTICLES Percentile in Reference Population HDL-P (total) High 75th 50th 25th Low >34.9 34.9 30.5 26.7 <26.7 . Small LDL-P Low 25th 50th 75th High <117 117 527 839 >839 . LDL Size <-Large (Pattern A)-> <-Small (Pattern B)-> 23.0 20.6 20.5 19.0 Small LDL-P and LDL Size are associated with CVD risk, but not afterLDL-P is taken into account. Test(s) 344474-HYC-I ; 951460-OGR-T; 963932-Znfjfkurfknjv; 202268-Akgupipxtco, Total; 229632-GLS-O (Total); 362252-Ktgso LDL-P; 454360-BUI Size; 354149-UC-UA Scorewas developed and its performance characteristics determinedby [employer]. It has not been cleared or approved by the Foodand Drug Administration.PATIENT WAS FASTINGPERFORMED BY: [employer] [address] [id number] BY: Pinocular6370 [facility] [id number] Lipoprotein.beta.sub particle [Moles/Vol] 569 nmol/L Normal Comprehensi Internal Medicine; [facility] Work Phone: Comment on above: Low < 1000 Moderate 1000 - 1299 Borderline-High 1300 - 1599 High 1600 - 2000 Very High > 2000 Test(s) 560274-RBR-A ; 816380-XXU-Q; 340384-Blrmlsimujokz; 575243-Avdlcdaklvz, Total; 913846-DZM-H (Total); 705261-Lgnzv LDL-P; 804349-LOH Size; 814764-GT-HH Scorewas developed and its performance characteristics determinedby [employer]. It has not been cleared or approved by the Foodand Drug Administration.PATIENT WAS FASTINGPERFORMED BY: [employer] [address] [id number] BY: Pinocular6370 [facility] [id number] Lipoprotein.beta.sub particle.small [Moles/Vol] 345 nmol/L Normal [facility] Internal Medicine; [facility] Work Phone: Comment on above: Test(s) 960139-MCU-B ; 120753-SMQ-N; 237792-Lwdtblryfhuoo; 103046-Hneadmfjype, Total; 765102-RXD-R (Total); 963408-Qfuyu LDL-P; 730466-DAY Size; 965395-CJ-QR Scorewas developed and its performance characteristics determinedby [employer]. It has not been cleared or approved by the Foodand Drug Administration.PATIENT WAS FASTINGPERFORMED BY: [employer] Okoinidqpo2383 [facility] [id number] BY: Pinocular6370 [facility] [id number] Triglyceride [Mass/Vol] 110 mg/dL Normal 0-149 [facility]; [facility] Work Phone: Comment on above: Test(s) 151041-HDR-R ; 456314-LHB-A; 534205-Usqqxoaruoksv; 884137-Mtopklyfbsp, Total; 206562-ESM-Z (Total); 858520-Ngvik LDL-P; 690060-XOB Size; 278993-CZ-QG Scorewas developed and its performance characteristics determinedby [employer]. It has not been cleared or approved by the Foodand Drug Administration.PATIENT WAS FASTINGPERFORMED BY: [employer] [address] [id number] BY: [employer] [place] [address] [id number] NMR Profile (88255) 55 mg/dL Normal 0-99 [facility]; [facility] Work Phone: Comment on above: . Optimal < 100 Abov e optimal 100 - 129 Borderline 130 - 159 High 160 - 189 Very high > 189 . Test(s) 631558-HYU-J ; 455375-ITE-X; 750408-Vutjfckkuaiok; 642295-Jibvexuqelj, Total; 009058-PNW-D (Total); 440253-Yztqy LDL-P; 958716-BAW Size; 254394-ER-KJ Scorewas developed and its performance characteristics determinedby [employer]. It has not been cleared or approved by the Foodand Drug Administration.PATIENT WAS FASTINGPERFORMED BY: [employer] [address] [id number] BY: [facility] Cnfibg9234 [facility] [id number] NMR Profile (76123) 51 mg/dL Normal [facility] Internal Medicine; [facility] Work Phone: Comment on above: Test(s) 690900-ACW-O ; 801857-ITP-A; 601665-Kgxwypnqxsgzm; 880696-Ascdpkfsups, Total; 117433-ANY-X (Total); 301401-Nswvk LDL-P; 688520-STG Size; 126144-KU-TL Scorewas developed and its performance characteristics determinedby [employer]. It has not been cleared or approved by the Foodand Drug Administration.PATIENT WAS FASTINGPERFORMED BY: [employer] [address] [id number] BY: Pinocular6370 [facility]Northern [facility] [id number] TSH (THYROID STIMULATING HOR OMAR) (59967)Ordered By: Cook Syrup Maker on 01-07-2021 TSH Qn 0.773 {uIU/mL} Normal 0.450-4.50 0 [facility]; [facility] Work Phone: Comment on above: Test(s) 755739-BHG-A ; 546425-JPF-F; 097825-Prjcxbwgfwcbk; 157579-Emhdlmoksxx, Total; 141281-EWM-V (Total); 629573-Ucmjr LDL-P; 906628-JQR Size; 665547-DO-VC Scorewas developed and its performance characteristics determinedby [employer]. It has not been cleared or approved by the Foodand Drug Administration.PATIENT WAS FASTINGPERFORMED BY: REVENUE[employer]com[address] [id number] BY: Pinocular6370 3seventyUNC [facility] [id number] URINALYSIS W MICROSCOPY (810 00)Ordered By: Cook Syrup Maker on 01-07-2021 Appearance (U) Clear Normal Comprehens enmanuel Internal Medicine; [facility] Work Phone: Comment on above: Test(s) 546070-HSS-P ; 714633-YGJ-P; 328282-Dcjlsuylvctpu; 189509-Kjudltjmzez, Total; 447165-YQC-Z (Total); 513663-Bazpw LDL-P; 676606-CWV Size; 127480-GU-PV Scorewas developed and its performance characteristics determinedby [employer]. It has not been cleared or approved by the Foodand Drug Administration.PATIENT WAS FASTINGPERFORMED BY: REVENUE.com[address] [id number] BY: Pinocular6370 3seventyUNC Health [facility] [id number] Bilirubin Ql (U) Negative Normal Comprehe nsive Internal Medicine; [facility] Work Phone: Comment on above: Test(s) 200795-DLZ-Y ; 141315-QDD-A; 198988-Cljfcmmukqsym; 631686-Rhmdwxkewtk, Total; 472843-QUE-H (Total); 407726-Brnyi LDL-P; 311858-ZJQ Size; 090490-NC-HW Scorewas developed and its performance characteristics determinedby [employer]. It has not been cleared or approved by the Foodand Drug Administration.PATIENT WAS FASTINGPERFORMED BY: REVENUE.com[address] [id number] BY: iChange70 [facility] [id number] Color (U) Yellow Normal [facility] Internal Medicine; [facility] Work Phone: Comment on above: Test(s) 519998-KWP-X ; 171346-XTM-F; 490383-Ogtvlwcldxdan; 697385-Likyyrifrog, Total; 843471-BWV-T (Total); 008735-Lecgo LDL-P; 774417-SWW Size; 114450-TG-EM Scorewas developed and its performance characteristics determinedby [employer]. It has not been cleared or approved by the Foodand Drug Administration.PATIENT WAS FASTINGPERFORMED BY: REVENUE.com[address] [id number] BY: iChange70 Itm [facility] [id number] Glucose Ql (U) Negative Normal Comprehens enmanuel Internal Medicine; [facility] Work Phone: Comment on above: Test(s) 449005-BCX-V ; 395352-GZR-I; 193330-Skxwxpwvqrlfv; 572213-Frnumzinqec, Total; 591092-ATG-G (Total); 093692-Rhvox LDL-P; 830166-CNX Size; 579875-ED-QB Scorewas developed and its performance characteristics determinedby [employer]. It has not been cleared or approved by the Foodand Drug Administration.PATIENT WAS FASTINGPERFORMED BY: [employer] [address] [id number] BY: iChange70 [facility] [id number] Hemoglobin Ql (U) 2+ Abnormal Compreh ensive Internal Medicine; [facility] Work Phone: Comment on above: Test(s) 129069-NCR-F ; 159857-VCZ-B; 843918-Vspdayewrophi; 758043-Ryhsnehmsdl, Total; 780226-AEU-F (Total); 303863-Palky LDL-P; 959681-DQU Size; 573179-AI-CO Scorewas developed and its performance characteristics determinedby [employer]. It has not been cleared or approved by the Foodand Drug Administration.PATIENT WAS FASTINGPERFORMED BY: [employer] [address] [id number] BY: [employer] Tele[employer] IncHampton Behavioral Health CenterEeibwq0682 [facility] [id number] Ketones Ql (U) Negative Normal Comprehens enmanuel [facility]; [facility] Work Phone: Comment on above: Test(s) 184931-RFJ-B ; 873152-QHH-V; 023939-Uwgslaltfdoud; 801402-Zzolhwvaqsq, Total; 094307-MSC-Y (Total); 879687-Veucr LDL-P; 221639-KWW Size; 697443-VK-SB Scorewas developed and its performance characteristics determinedby [employer]. It has not been cleared or approved by the Foodand Drug Administration.PATIENT WAS FASTINGPERFORMED BY: [employer] [id number] BY: [employer] Tele[employer] IncHampton Behavioral Health CenterXvvyfo4002 [facility] [id number] Leukocyte esterase Test strip Ql (U) Negative Normal [facility]; [facility] Work Phone: Comment on above: Test(s) 995493-KZD-E ; 980878-ZDY-E; 446601-Xqtnyslmgbgfy; 877907-Klowppzizgf, Total; 301174-RJS-X (Total); 268831-Ugojg LDL-P; 076873-YIU Size; 687961-LA-XB Scorewas developed and its performance characteristics determinedby [employer]. It has not been cleared or approved by the Foodand Drug Administration.PATIENT WAS FASTINGPERFORMED BY: [employer] [address] [id number] BY: [facility] Jccbov1978 [facility] [id number] Microscopic observation LM Nom (Urine sed) See below: Normal [facility]; [facility] Work Phone: Comment on above: Microscopic was gianna cated and was performed. Test(s) 998903-YIK-X ; 759750-DCM-Q; 437445-Kkbyqaoyldmsk; 353375-Zhgivrxcznd, Total; 648383-NDN-P (Total); 235123-Xnngk LDL-P; 125099-JMY Size; 578926-YY-WD Scorewas developed and its performance characteristics determinedby [employer]. It has not been cleared or approved by the Foodand Drug Administration.PATIENT WAS FASTINGPERFORMED BY: REVENUE[employer]com[address] [id number] BY: [employer]6370 [facility] [id number] Nitrite Ql (U) Negative Normal Comprehens [facility] Internal Medicine; [facility] Work Phone: Comment on above: Test(s) 795453-MXC-B ; 038523-RYR-D; 816838-Cjjzocfylmcog; 300097-Kyfbqjwsenj, Total; 807700-HGJ-R (Total); 825924-Cqzig LDL-P; 423640-WYF Size; 988621-PI-NN Scorewas developed and its performance characteristics determinedby [employer]. It has not been cleared or approved by the Foodand Drug Administration.PATIENT WAS FASTINGPERFORMED BY: [employer] [address] [id number] BY: Landpointlin6370 [facility] [id number] pH (U) 6.0 [pH] Normal 5.0-7.5 [facility]; [facility] Work Phone: Comment on above: Test(s) 633160-QCC-B ; 157268-NNJ-S; 769959-Dnpsgxrcsmywl; 322141-Oajkmuidrln, Total; 377829-ASA-Q (Total); 792669-Zycxk LDL-P; 424203-ZGQ Size; 160391-SH-OK Scorewas developed and its performance characteristics determinedby [employer]. It has not been cleared or approved by the Foodand Drug Administration.PATIENT WAS FASTINGPERFORMED BY: [employer] [address] [id number] BY: iChange70 [facility] [id number] Protein Ql (U) Negative Normal [facility] Internal Medicine; [facility] Work Phone: Comment on above: Test(s) 410961-IBP-S ; 591873-BTF-B; 009136-Etcxpixzquxqi; 149881-Ywcqtgvwozb, Total; 811661-AUT-Q (Total); 134496-Sdgwb LDL-P; 820106-FDP Size; 659055-BH-UB Scorewas developed and its performance characteristics determinedby [employer]. It has not been cleared or approved by the Foodand Drug Administration.PATIENT WAS FASTINGPERFORMED BY: [employer] [address] [id number] BY: [employer] Hxibnr5686 [facility] [id number] Specific gravity (U) [Rel density] 1.012 1 Normal 1.005-1.03 0 [facility]; [facility] Work Phone: Comment on above: Test(s) 866862-APW-D ; 067665-CYS-Z; 986276-Nfukuyopwqcpw; 960123-Lwweginuoho, Total; 729551-AGQ-N (Total); 918343-Ysaxl LDL-P; 895540-TAS Size; 881587-KE-PW Scorewas developed and its performance characteristics determinedby [employer]. It has not been cleared or approved by the Foodand Drug Administration.PATIENT WAS FASTINGPERFORMED BY: [employer] [address] [id number] BY: CB LabGarden [facility] Hospital6370 [facility] [id number] Urobilinogen (U) [Mass/Vol] 0.2 mg/dL Normal 0.2-1.0 [facility]; [facility] Work Phone: Comment on above: Test(s) 698092-ONY-R ; 612532-HCP-M; 376925-Jnszhhxbczwku; 826683-Ychuhgeyulk, Total; 536150-LHK-T (Total); 601693-Xuqdt LDL-P; 383956-TEI Size; 125159-OP-KB Scorewas developed and its performance characteristics determinedby [facility]. It has not been cleared or approved by the Foodand Drug Administration.PATIENT WAS FASTINGPERFORMED BY: [address] [id number] BY: [facility]6370 [facility] [id number] HEPATITIS C ANTIBODY (95760) Ordered By: Cook Syrup Maker on 07-23-2020 HCV Ab Signal/Cutoff IA [Rel units/Vol] {ratio} Normal 0.0-0.9 [facility]; [facility] Work Phone: Comment on above: Negative: < 0.8 Inde terminate: 0.8 - 0.9 Positive: > 0.9 . The CDC recommends that a positive HCV antibody result be followed up with a HCV Nucleic Acid Amplification test (961741). PATIENT NOT FASTINGP ERFORMED BY: [facility]6370 [facility] [id number] HCV Ab Signal/Cutoff IA [Rel units/Vol] {ratio} Normal 0.0-0.9 [facility]; [facility] Work Phone: Comment on above: Negative: < 0.8 Inde terminate: 0.8 - 0.9 Positive: > 0.9 . The CDC recommends that a positive HCV antibody result be followed up with a HCV Nucleic Acid Amplification test (992196). PATIENT NOT FASTINGP ERFORMED BY: [facility]6370 [facility] [id number] CALCIFEDIOL (67131)Ordered B y: Cook Syrup Maker on 07-10-2020 25-Hydroxyvitamin D2+25-Hydroxyvitamin D3 [Mass/Vol] 49.1 ng/mL Normal 30.0-100.0 [facility]; [facility] Work Phone: Comment on above: Vitamin D deficiency has been defined by the [place] ofMedicine and an Endocrine Society practice guideline as alevel of serum 25-OH vitamin D less than 20 ng/mL (1,2).The Endocrine Society went on to further define vitamin Dinsufficiency as a level between 21 and 29 ng/mL (2).1. IOM ([place] of Medicine). 2010. Dietary reference intakes for calcium and D. [place]: The National Academies Press.2. Latanya MF, Victorino LOYOLA, Alysia HENDRICKSON, et al. Evaluation, treatment, and prevention of vitamin D deficiency: an Endocrine Society clinical practice guideline. JCEM. 2010; 96(7):1911-30. Test(s) 911045-PWS-X ; 215469-GIF-J; 486050-Rzdihexxcckar; 540938-Agucychrhgn, Total; 739084-PGV-A (Total); 465879-Ddwan LDL-P; 703919-KLD Size; 494250-XA-VN Scorewas developed and its performance characteristics determinedby [employer]. It has not been cleared or approved by the Foodand Drug Administration.PATIENT WAS FASTINGPERFORMED BY: [employer] [address] [id number] BY: [employer]CAS Medical Systemsrp Azozsp2139 [facility] [id number] CBC, PLATELETS & AUT DIFF (4 2182)Ordered By: Cook Syrup Maker on 07-10-2020 Basophils (Bld) [#/Vol] 0.1 {x10E3/uL} Normal 0.0-0.2 [facility]; [facility] Work Phone: Comment on above: Test(s) 170115-KDM-B ; 246485-SQC-M; 220455-Sljmqwwxmekyd; 179294-Uacjqwddpfr, Total; 213891-SCF-Q (Total); 363107-Ojtuo LDL-P; 129490-SHS Size; 671927-UL-ZD Scorewas developed and its performance characteristics determinedby [employer]. It has not been cleared or approved by the Foodand Drug Administration.PATIENT WAS FASTINGPERFORMED BY: Ahometo[address] [id number] BY: [employer] Hlivnp6758 [facility] [id number] Basophils (Bld) [#/Vol] 0.1 10*3/uL Normal 0.0-0.2 [facility]; [facility] Work Phone: Comment on above: Test(s) 076832-SKG-H ; 379692-PGI-G; 503175-Xmmwktqjrcgxr; 795380-Elzhlafjuja, Total; 819839-SDV-T (Total); 593050-Sccom LDL-P; 534083-DGQ Size; 444801-SE-CN Scorewas developed and its performance characteristics determinedby [employer]. It has not been cleared or approved by the Foodand Drug Administration.PATIENT WAS FASTINGPERFORMED BY: [employer] [address] [id number] BY: iChange70 [facility] [id number] Basophils/100 WBC (Bld) 1 % Normal [facility]; [facility] Work Phone: Comment on above: Test(s) 121879-VPU-W ; 436904-JAJ-M; 556648-Hbnohfshhhvlq; 208321-Hdpsvqqcley, Total; 334332-WDI-P (Total); 043747-Gnuni LDL-P; 547482-UZI Size; 032014-QL-CE Scorewas developed and its performance characteristics determinedby [employer]. It has not been cleared or approved by the Foodand Drug Administration.PATIENT WAS FASTINGPERFORMED BY: Ahometo[address] [id number] BY: [facility] CenterHampton Behavioral Health CenterCuepcu5933 [facility] [id number] Eosinophils (Bld) [#/Vol] 0.3 {x10E3/uL} Normal 0.0-0.4 [facility]; [facility] Work Phone: Comment on above: Test(s) 476984-NQY-G ; 638861-PNL-B; 843620-Barrkxgyduwig; 103168-Egpryaomaei, Total; 158700-FWM-Z (Total); 454450-Cshsx LDL-P; 729545-HPO Size; 832832-GL-FR Scorewas developed and its performance characteristics determinedby [employer]. It has not been cleared or approved by the Foodand Drug Administration.PATIENT WAS FASTINGPERFORMED BY: [employer] [address] [id number] BY: iChange70 [facility] [id number] Eosinophils (Bld) [#/Vol] 0.3 10*3/uL Normal 0.0-0.4 [facility]; [facility] Work Phone: Comment on above: Test(s) 957644-HJL-V ; 643388-GLX-U; 860276-Txsympbwpiqci; 394715-Gevgvgwnqzv, Total; 743942-FEF-U (Total); 278831-Sfgbs LDL-P; 768003-FRI Size; 737749-CX-AB Scorewas developed and its performance characteristics determinedby [employer]. It has not been cleared or approved by the Foodand Drug Administration.PATIENT WAS FASTINGPERFORMED BY: [employer] [address] [id number] BY: Pin[employer]6370 [place] [facility] [id number] Eosinophils/100 WBC (Bld) 5 % Normal [facility]; [facility] Work Phone: Comment on above: Test(s) 666525-KYF-M ; 470544-KRP-Z; 121678-Eskhwerqeupiz; 283099-Qyeungzunnx, Total; 426871-WLC-R (Total); 245386-Mfwuz LDL-P; 450865-AGW Size; 110432-FL-PG Scorewas developed and its performance characteristics determinedby [employer]. It has not been cleared or approved by the Foodand Drug Administration.PATIENT WAS FASTINGPERFORMED BY: REVENUE[employer]com[address] [id number] BY: [employer] Xconwn4682 [facility] [id number] Erythrocyte distribution width (RBC) [Ratio] 14.3 % Normal 11.7-15.4 [facility]; [facility] Work Phone: Comment on above: Test(s) 011038-ZAQ-S ; 743701-VPP-R; 746044-Cbjnbqtwwpbcl; 392242-Gpyqwsjlzib, Total; 607158-WRF-L (Total); 766362-Eeqxh LDL-P; 956425-PWU Size; 829499-PP-IL Scorewas developed and its performance characteristics determinedby [employer]. It has not been cleared or approved by the Foodand Drug Administration.PATIENT WAS FASTINGPERFORMED BY: REVENUE.com[address] [id number] BY: Pin[employer]6370 [facility] [id number] Hematocrit (Bld) [Volume fraction] 36.4 % Normal 34.0-46.6 [facility]; [facility] Work Phone: Comment on above: Test(s) 097516-OPI-U ; 061989-MGA-P; 059145-Krbxqadtlijyp; 572978-Dchtxwzxifc, Total; 812650-RDC-K (Total); 559869-Hrrsm LDL-P; 367577-KUF Size; 749980-NU-YW Scorewas developed and its performance characteristics determinedby [employer]. It has not been cleared or approved by the Foodand Drug Administration.PATIENT WAS FASTINGPERFORMED BY: [employer] [address] [id number] BY: [employer] Okljpy8450 [facility] [id number] Hemoglobin (Bld) [Mass/Vol] 11.7 g/dL Normal 11.1-15.9 [facility]; [facility] Work Phone: Comment on above: Test(s) 569225-STM-H ; 262083-KPS-N; 123967-Crtpjrdjtdpkg; 911410-Xhuojkcpgef, Total; 489951-QKI-U (Total); 089769-Urwtc LDL-P; 058393-FKX Size; 304456-YU-IE Scorewas developed and its performance characteristics determinedby [employer]. It has not been cleared or approved by the Foodand Drug Administration.PATIENT WAS FASTINGPERFORMED BY: [employer] [id number] BY: [employer] [id number] Immature granulocytes (Bld) [#/Vol] 0.0 {x10E3/uL} Normal 0.0-0.1 [facility]; [facility] Work Phone: Comment on above: Test(s) 646224-REK-L ; 449822-SIA-A; 811807-Lxtkiacwmhfrg; 619593-Ckqybpjxsuj, Total; 713005-SQW-U (Total); 537968-Vsbii LDL-P; 330170-YKF Size; 464808-HP-WL Scorewas developed and its performance characteristics determinedby [employer]. It has not been cleared or approved by the Foodand Drug Administration.PATIENT WAS FASTINGPERFORMED BY: [employer] [id number] BY: [employer] Tele[employer] IncHampton Behavioral Health CenterEsjbqt2971 [facility] [id number] Immature granulocytes (Bld) [#/Vol] 0.0 10*3/uL Normal 0.0-0.1 [facility]; [facility] Work Phone: Comment on above: Test(s) 250030-KTR-T ; 558479-BSH-J; 301871-Qhcyptlsndzow; 291266-Pvpikiewjyi, Total; 888190-CAS-C (Total); 615012-Gwquf LDL-P; 227700-FPM Size; 218876-VC-BV Scorewas developed and its performance characteristics determinedby [employer]. It has not been cleared or approved by the Foodand Drug Administration.PATIENT WAS FASTINGPERFORMED BY: Ahometo[address] [id number] BY: [facility] Hucuot4809 [facility] [id number] Immature granulocytes/100 WBC (Bld) 0 % Normal [facility]; [facility] Work Phone: Comment on above: Test(s) 802565-PFR-R ; 485819-WQR-Z; 428492-Bqrjghnyzgssi; 566576-Vuxyhgficgi, Total; 526370-DFB-E (Total); 591710-Wwpid LDL-P; 144145-MMB Size; 295300-WK-GW Scorewas developed and its performance characteristics determinedby [employer]. It has not been cleared or approved by the Foodand Drug Administration.PATIENT WAS FASTINGPERFORMED BY: [employer] [address] [id number] BY: Pinocular6370 [facility] [id number] Lymphocytes (Bld) [#/Vol] 2.5 {x10E3/uL} Normal 0.7-3.1 [facility]; [facility] Work Phone: Comment on above: Test(s) 992949-UCI-F ; 394252-LVZ-B; 205803-Daysduesnnkxw; 942816-Mbblsuhptfc, Total; 566287-AIM-Y (Total); 456008-Mzqam LDL-P; 896258-ZDR Size; 602176-QN-EZ Scorewas developed and its performance characteristics determinedby [employer]. It has not been cleared or approved by the Foodand Drug Administration.PATIENT WAS FASTINGPERFORMED BY: [employer] [address] [id number] BY: [employer] Saxzui7420 [facility] [id number] Lymphocytes (Bld) [#/Vol] 2.5 10*3/uL Normal 0.7-3.1 [facility]; [facility] Work Phone: Comment on above: Test(s) 813794-HTS-A ; 022475-BKY-J; 366425-Srngoirlvudbr; 173744-Ykzexkbsvdb, Total; 557716-ZQP-V (Total); 795961-Czkus LDL-P; 041671-OMO Size; 553191-LT-RU Scorewas developed and its performance characteristics determinedby [employer]. It has not been cleared or approved by the Foodand Drug Administration.PATIENT WAS FASTINGPERFORMED BY: [employer] [address] [id number] BY: iChange70 [facility] [id number] Lymphocytes/100 WBC (Bld) 34 % Normal [facility]; [facility] Work Phone: Comment on above: Test(s) 125767-AJP-M ; 388482-YLZ-B; 592216-Hptqvribpsdhl; 793376-Lyyoitgvkbk, Total; 515406-RYW-C (Total); 658002-Tazlt LDL-P; 789559-EWY Size; 705786-DB-IB Scorewas developed and its performance characteristics determinedby [employer]. It has not been cleared or approved by the Foodand Drug Administration.PATIENT WAS FASTINGPERFORMED BY: [employer] [address] [id number] BY: [employer] Hzrsqj7274 [facility] [id number] MCH (RBC) [Entitic mass] 27.5 pg Normal 26.6-33.0 [facility]; [facility] Work Phone: Comment on above: Test(s) 994908-IRW-I ; 902577-ESE-X; 753889-Dvxwbawjgeylc; 252940-Mzkfkhkfuni, Total; 954886-WNI-P (Total); 425514-Deozn LDL-P; 243310-YYB Size; 625257-ZO-DT Scorewas developed and its performance characteristics determinedby [employer]. It has not been cleared or approved by the Foodand Drug Administration.PATIENT WAS FASTINGPERFORMED BY: [employer] [address] [id number] BY: iChange70 [facility] [id number] MCHC (RBC) [Mass/Vol] 32.1 g/dL Normal 31.5-35.7 [facility]; [facility] Work Phone: Comment on above: Test(s) 656822-PVI-Z ; 244157-GON-V; 035822-Mlldjwuqehrvx; 353660-Ixhytdqpzcf, Total; 963384-BZR-K (Total); 277756-Ifuno LDL-P; 453072-ELC Size; 732385-LK-GA Scorewas developed and its performance characteristics determinedby [employer]. It has not been cleared or approved by the Foodand Drug Administration.PATIENT WAS FASTINGPERFORMED BY: REVENUE[employer]com[address] [id number] BY: Pinocular6370 [facility] [id number] MCV (RBC) [Entitic vol] 86 fL Normal 79-97 [facility]; [facility] Work Phone: Comment on above: Test(s) 286548-ILT-U ; 926255-CQD-N; 568964-Cnksxzmzvuseq; 493962-Opnyusjcdpv, Total; 546802-QJX-N (Total); 339953-Nwagc LDL-P; 102830-AXI Size; 960657-GN-VG Scorewas developed and its performance characteristics determinedby [employer]. It has not been cleared or approved by the Foodand Drug Administration.PATIENT WAS FASTINGPERFORMED BY: [employer] [address] [id number] BY: Landpointlin6370 [facility] [id number] Monocytes (Bld) [#/Vol] 0.6 {x10E3/uL} Normal 0.1-0.9 [facility]; [facility] Work Phone: Comment on above: Test(s) 393766-PMM-F ; 381189-ZPP-Z; 282607-Adxxvuqkwtpto; 147108-Jagaidbtoet, Total; 488564-DUS-C (Total); 458140-Inveo LDL-P; 747898-JPS Size; 278103-ZR-KX Scorewas developed and its performance characteristics determinedby [employer]. It has not been cleared or approved by the Foodand Drug Administration.PATIENT WAS FASTINGPERFORMED BY: [employer] [address] [id number] BY: [facility]6370 [facility] [id number] Monocytes (Bld) [#/Vol] 0.6 10*3/uL Normal 0.1-0.9 [facility]; [facility] Work Phone: Comment on above: Test(s) 873909-LVV-Y ; 620110-ZBK-Y; 917057-Drlvniutxinuv; 970881-Iralfecszcq, Total; 836234-YXB-Y (Total); 778217-Oibvn LDL-P; 651042-ESZ Size; 644894-IJ-JH Scorewas developed and its performance characteristics determinedby [employer]. It has not been cleared or approved by the Foodand Drug Administration.PATIENT WAS FASTINGPERFORMED BY: [employer] [address] [id number] BY: iChange70 [facility] [id number] Monocytes/100 WBC (Bld) 8 % Normal [facility]; [facility] Work Phone: Comment on above: Test(s) 620678-KZU-I ; 961072-LRO-T; 692614-Mlzltkwyanxoq; 272135-Hhnznjhxzzw, Total; 093763-VQT-W (Total); 615209-Trwyo LDL-P; 770889-HCC Size; 237188-DP-BM Scorewas developed and its performance characteristics determinedby [employer]. It has not been cleared or approved by the Foodand Drug Administration.PATIENT WAS FASTINGPERFORMED BY: [employer] [address] [id number] BY: [employer] Wsppbb8562 [facility] [id number] Neutrophils (Bld) [#/Vol] 3.7 {x10E3/uL} Normal 1.4-7.0 [facility]; [facility] Work Phone: Comment on above: Test(s) 399770-KQL-T ; 544463-JSP-A; 644954-Wamgxglydpuek; 705630-Yjuajcclyag, Total; 530076-GYQ-U (Total); 499288-Gbfcx LDL-P; 057737-NRW Size; 161915-US-YP Scorewas developed and its performance characteristics determinedby [employer]. It has not been cleared or approved by the Foodand Drug Administration.PATIENT WAS FASTINGPERFORMED BY: RE[employer]UE[employer]com[address] [id number] BY: iChange70 [facility] [id number] Neutrophils (Bld) [#/Vol] 3.7 10*3/uL Normal 1.4-7.0 [facility]; [facility] Work Phone: Comment on above: Test(s) 847497-JCE-O ; 441256-UQO-W; 531784-Ochdjhgnfvmmg; 109312-Dmpyxsmyzaa, Total; 975487-DGW-O (Total); 948192-Arrqk LDL-P; 231140-QJP Size; 745592-DR-JD Scorewas developed and its performance characteristics determinedby [employer]. It has not been cleared or approved by the Foodand Drug Administration.PATIENT WAS FASTINGPERFORMED BY: [employer]com[address] [id number] BY: Pinocular6370 [facility] [id number] Neutrophils/100 WBC (Bld) 52 % Normal [facility]; [facility] Work Phone: Comment on above: Test(s) 508141-BOB-J ; 559665-UYS-C; 023831-Jsvsjhueqpwqz; 617092-Fcugzrdczlz, Total; 799767-ZGR-I (Total); 926625-Lwsxs LDL-P; 319624-XIT Size; 629288-GV-QX Scorewas developed and its performance characteristics determinedby [employer]. It has not been cleared or approved by the Foodand Drug Administration.PATIENT WAS FASTINGPERFORMED BY: REVENUE.com[address] [id number] BY: [employer] Miqgkl9638 [facility] [id number] Platelets (Bld) [#/Vol] 403 {x10E3/uL} Normal 150-450 [facility]; [facility] Work Phone: Comment on above: Test(s) 855300-TZZ-K ; 967820-BOS-X; 105975-Igzgkjgvpojhv; 842111-Evrlfujzett, Total; 753092-RHW-U (Total); 992024-Sofym LDL-P; 041736-NCZ Size; 287585-WB-LL Scorewas developed and its performance characteristics determinedby [employer]. It has not been cleared or approved by the Foodand Drug Administration.PATIENT WAS FASTINGPERFORMED BY: [employer]UE[employer]com[address] [id number] BY: Pinocular6370 [facility] [id number] Platelets (Bld) [#/Vol] 403 10*3/uL Normal 150-450 [facility]; [facility] Work Phone: Comment on above: Test(s) 628108-NXL-C ; 414400-OWB-A; 789498-Ckhsgupxqdwoj; 729442-Zueuiwbdtzo, Total; 809352-YMC-M (Total); 888788-Bgaix LDL-P; 958951-DRU Size; 186054-HP-IS Scorewas developed and its performance characteristics determinedby [employer]. It has not been cleared or approved by the Foodand Drug Administration.PATIENT WAS FASTINGPERFORMED BY: [employer] [address] [id number] BY: [facility] CenterHampton Behavioral Health CenterNngxos5852 [facility] [id number] RBC (Bld) [#/Vol] 4.25 {x10E6/uL} Normal 3.77-5.28 [facility]; [facility] Work Phone: Comment on above: Test(s) 978251-XSI-D ; 898324-LGW-S; 285257-Egaodcpwjpxxi; 678459-Bziujfwrhzm, Total; 758289-FOG-O (Total); 601596-Gqtqa LDL-P; 698212-EQO Size; 998659-PK-AX Scorewas developed and its performance characteristics determinedby [employer]. It has not been cleared or approved by the Foodand Drug Administration.PATIENT WAS FASTINGPERFORMED BY: [employer]com[address] [id number] BY: iChange70 [facility] [id number] RBC (Bld) [#/Vol] 4.25 10*6/uL Normal 3.77-5.28 [facility] Internal [facility]; [facility] Work Phone: Comment on above: Test(s) 948438-STY-P ; 576047-HHQ-C; 428577-Tfsnazsoeuppq; 293057-Nuyqromjwcz, Total; 526063-LRN-B (Total); 503808-Dvzxw LDL-P; 783638-YLI Size; 908399-FC-CT Scorewas developed and its performance characteristics determinedby [employer]. It has not been cleared or approved by the Foodand Drug Administration.PATIENT WAS FASTINGPERFORMED BY: [employer]com[address] [id number] BY: Pinocular6370 [facility] [id number] WBC (Bld) [#/Vol] 7.2 {x10E3/uL} Normal 3.4-10.8 [facility] Internal Medicine; [facility] Work Phone: Comment on above: Test(s) 270573-FYS-L ; 335974-ORX-L; 505402-Onkywcczmemwc; 001098-Ikqvudfhxvc, Total; 566511-MJM-O (Total); 350248-Ygnnk LDL-P; 537557-EJD Size; 641721-LU-IW Scorewas developed and its performance characteristics determinedby [employer]. It has not been cleared or approved by the Foodand Drug Administration.PATIENT WAS FASTINGPERFORMED BY: [employer] [id number] BY: [employer] Ldhzbr7553 [facility] [id number] WBC (Bld) [#/Vol] 7.2 10*3/uL Normal 3.4-10.8 [facility] Internal Medicine; [facility] Work Phone: Comment on above: Test(s) 944175-RXL-T ; 986118-WEV-R; 648947-Knmuxjrqwjsic; 840521-Eilbgutchel, Total; 943022-OAL-I (Total); 749090-Rmjtm LDL-P; 581811-DNH Size; 292461-FF-SP Scorewas developed and its performance characteristics determinedby [employer]. It has not been cleared or approved by the Foodand Drug Administration.PATIENT WAS FASTINGPERFORMED BY: [employer] [address] [id number] BY: [employer] Rdajnx1737 [facility] [id number] METABOLIC PANEL, COMPREHENSI VE (65384)Ordered By: Cook Syrup Maker on 07-10-2020 Albumin [Mass/Vol] 4.0 g/dL Normal 3.8-4.8 [facility] Internal [facility]; [facility] Work Phone: Comment on above: Test(s) 765842-SZT-O ; 583470-BXP-L; 489945-Vrdhiouhmvoob; 989439-Ykpbrnhwhbq, Total; 708033-WFC-O (Total); 281694-Rqick LDL-P; 491438-PQZ Size; 548242-SX-XW Scorewas developed and its performance characteristics determinedby [employer]. It has not been cleared or approved by the Foodand Drug Administration.PATIENT WAS FASTINGPERFORMED BY: [employer] [address] [id number] BY: InterValvelin6370 [facility] [id number] Albumin/Globulin [Mass ratio] 1.4 {ratio} Normal 1.2-2.2 [facility]; [facility] Work Phone: Comment on above: Test(s) 688949-XZV-O ; 576179-YTK-Y; 979763-Agpphgedubnul; 103518-Ombkzuirnly, Total; 671616-PMN-O (Total); 060794-Wwwua LDL-P; 169156-NBE Size; 578662-QV-QG Scorewas developed and its performance characteristics determinedby [employer]. It has not been cleared or approved by the Foodand Drug Administration.PATIENT WAS FASTINGPERFORMED BY: [employer] [address] [id number] BY: iChange70 [facility] [id number] ALP [Catalytic activity/Vol] 98 [iU]/L Normal 39-117 [facility]; [facility] Work Phone: Comment on above: Test(s) 363504-OMB-Y ; 989077-ZSD-Q; 156937-Inakobikxgqpa; 390326-Cazbdehqodp, Total; 892374-SJF-Y (Total); 684968-Hdjqi LDL-P; 236719-XAC Size; 854736-ZE-UL Scorewas developed and its performance characteristics determinedby [employer]. It has not been cleared or approved by the Foodand Drug Administration.PATIENT WAS FASTINGPERFORMED BY: [employer] [address] [id number] BY: [employer] Jzigto1647 [facility] [id number] ALP [Catalytic activity/Vol] 98 U/L Normal 39-117 [facility]; [facility] Work Phone: Comment on above: Test(s) 493549-RPF-Y ; 869214-MQJ-P; 674643-Zjzfgeztkekmx; 004738-Oqynmswqmaq, Total; 606871-UVU-Y (Total); 608205-Uifes LDL-P; 524673-XRK Size; 000756-SN-SR Scorewas developed and its performance characteristics determinedby [employer]. It has not been cleared or approved by the Foodand Drug Administration.PATIENT WAS FASTINGPERFORMED BY: [employer] [id number] BY: [employer] IncHampton Behavioral Health CenterOhlqkb2598 [facility] [id number] ALT [Catalytic activity/Vol] 11 [iU]/L Normal 0-32 [facility]; [facility] Work Phone: Comment on above: Test(s) 009856-GXL-F ; 049208-ZWU-I; 542502-Ojibrxrlnanaj; 195650-Kagidbifzxs, Total; 776589-PTG-Z (Total); 758974-Hzcxq LDL-P; 946086-ORI Size; 787784-YJ-VA Scorewas developed and its performance characteristics determinedby [employer]. It has not been cleared or approved by the Foodand Drug Administration.PATIENT WAS FASTINGPERFORMED BY: [employer] [address] [id number] BY: [employer] Tele[employer] IncPenny [place] [id number] [facility] [id number] ALT [Catalytic activity/Vol] 11 U/L Normal 0-32 [facility]; [facility] Work Phone: Comment on above: Test(s) 233241-IHS-M ; 703862-MIN-G; 504539-Gnjnlyoqmafbi; 391228-Kzkkrrblsie, Total; 910954-RRJ-F (Total); 374331-Vdjqp LDL-P; 079421-ELC Size; 845188-VR-TW Scorewas developed and its performance characteristics determinedby [employer]. It has not been cleared or approved by the Foodand Drug Administration.PATIENT WAS FASTINGPERFORMED BY: [employer] [id number] BY: [employer] IncHampton Behavioral Health CenterJtextl5648 [facility] [id number] AST [Catalytic activity/Vol] 24 [iU]/L Normal 0-40 [facility]; [facility] Work Phone: Comment on above: Test(s) 737455-AUX-L ; 629664-DHJ-U; 128470-Saolqgcnasevu; 166908-Ufqkpxevcdv, Total; 209571-KEA-C (Total); 193330-Dikip LDL-P; 524306-VKJ Size; 609074-IT-LB Scorewas developed and its performance characteristics determinedby [employer]. It has not been cleared or approved by the Foodand Drug Administration.PATIENT WAS FASTINGPERFORMED BY: [employer] [address] [id number] BY: [employer] Uhannr7871 [facility] [id number] AST [Catalytic activity/Vol] 24 U/L Normal 0-40 [facility]; [facility] Work Phone: Comment on above: Test(s) 443461-PMR-B ; 561084-OGZ-G; 729723-Jkzqudvmnfwhb; 934278-Ptrppzylgoc, Total; 307565-LPW-E (Total); 758778-Gsbah LDL-P; 857266-UGZ Size; 473735-RJ-PE Scorewas developed and its performance characteristics determinedby [employer]. It has not been cleared or approved by the Foodand Drug Administration.PATIENT WAS FASTINGPERFORMED BY: [employer] [address] [id number] BY: Pinocular6370 [facility] [id number] Bilirubin [Mass/Vol] 0.2 mg/dL Normal 0.0-1.2 [facility] Internal Medicine; [facility] Work Phone: Comment on above: Test(s) 291022-IMR-Y ; 795297-CZG-G; 855910-Cexxlibfqiiwb; 540099-Jorezfvmkmg, Total; 294686-XTY-U (Total); 075069-Cuimw LDL-P; 496411-PZJ Size; 276026-ZS-DB Scorewas developed and its performance characteristics determinedby [employer]. It has not been cleared or approved by the Foodand Drug Administration.PATIENT WAS FASTINGPERFORMED BY: [employer] [address] [id number] BY: Pinocular6370 [facility] [id number] Calcium [Mass/Vol] 9.9 mg/dL Normal 8.7-10.3 [facility] Internal Medicine; [facility] Work Phone: Comment on above: Test(s) 610238-XKV-C ; 300992-MVS-G; 889590-Wblgnykhryftd; 817378-Japkvcttyzg, Total; 275980-AYO-S (Total); 027362-Xkkdi LDL-P; 565621-OBZ Size; 875305-SP-AK Scorewas developed and its performance characteristics determinedby [employer]. It has not been cleared or approved by the Foodand Drug Administration.PATIENT WAS FASTINGPERFORMED BY: REVENUE.com[address] [id number] BY: Pinocular6370 [facility] [id number] Chloride [Moles/Vol] 104 mmol/L Normal 96-106 [facility] Internal Medicine; [facility] Work Phone: Comment on above: Test(s) 614280-NSV-Q ; 973036-RFX-Y; 593654-Tdngmvchvkdrg; 737767-Vffzwscpsxh, Total; 087067-GPZ-I (Total); 592194-Xxwrs LDL-P; 691769-MLH Size; 939316-HE-YM Scorewas developed and its performance characteristics determinedby [employer]. It has not been cleared or approved by the Foodand Drug Administration.PATIENT WAS FASTINGPERFORMED BY: [employer] [address] [id number] BY: [facility] CenterHampton Behavioral Health CenterKoomjw8085 [facility] [id number] CO2 [Moles/Vol] 24 mmol/L Normal 20-29 [facility] Internal Medicine; [facility] Work Phone: Comment on above: Test(s) 655678-TIE-J ; 572471-OLL-L; 119863-Ritmmfyiyhqke; 651509-Fosqyacyury, Total; 153180-TZU-S (Total); 812642-Mdxpc LDL-P; 695119-JLF Size; 403972-NG-KO Scorewas developed and its performance characteristics determinedby [employer]. It has not been cleared or approved by the Foodand Drug Administration.PATIENT WAS FASTINGPERFORMED BY: [employer] [address] [id number] BY: [employer]70 [facility] [id number] Creatinine [Mass/Vol] 0.76 mg/dL Normal 0.57-1.00 [facility]; [facility] Work Phone: Comment on above: Test(s) 628200-JBU-C ; 921032-DIF-S; 422653-Uirzgytygeitm; 026900-Ygovapplpch, Total; 087660-BFU-I (Total); 672707-Shrip LDL-P; 859039-TDD Size; 476662-OD-OP Scorewas developed and its performance characteristics determinedby [employer]. It has not been cleared or approved by the Foodand Drug Administration.PATIENT WAS FASTINGPERFORMED BY: [employer] [address] [id number] BY: iChange70 [facility] [id number] GFR/1.73 sq M predicted among blacks CKD-EPI (S/P/Bld) [Vol rate/Area] 95 mL/min/1.73 Normal [facility]; [facility] Work Phone: Comment on above: Test(s) 551674-GSI-O ; 762352-PKX-N; 008756-Sjukfhypcbkhj; 740134-Rtbepgyhnze, Total; 305692-VZQ-U (Total); 811466-Awnvo LDL-P; 226996-WVX Size; 787381-AB-EC Scorewas developed and its performance characteristics determinedby [employer]. It has not been cleared or approved by the Foodand Drug Administration.PATIENT WAS FASTINGPERFORMED BY: [employer] [address] [id number] BY: LOAG [facility] [id number] GFR/1.73 sq M predicted among non-blacks CKD-EPI (S/P/Bld) [Vol rate/Area] 82 mL/min/1.73 Normal [facility]; [facility] Work Phone: Comment on above: Test(s) 495561-DZY-V ; 608970-MEC-I; 869776-Qfsnliwrmqpxd; 786835-Qwktoxztcfk, Total; 888777-GOP-R (Total); 871046-Lzcpt LDL-P; 417047-RBZ Size; 036579-PE-VA Scorewas developed and its performance characteristics determinedby [employer]. It has not been cleared or approved by the Foodand Drug Administration.PATIENT WAS FASTINGPERFORMED BY: [employer] [address] [id number] BY: Pinocular6370 [facility] [id number] Globulin (S) [Mass/Vol] 2.8 g/dL Normal 1.5-4.5 [facility] Internal Medicine; [facility] Work Phone: Comment on above: Test(s) 742683-RHK-I ; 055604-ZAW-E; 387925-Fdmqfdjaxxkdn; 953965-Rdyzyhgwuto, Total; 666554-SKE-P (Total); 714445-Pkull LDL-P; 993562-IFP Size; 005809-DJ-WI Scorewas developed and its performance characteristics determinedby [employer]. It has not been cleared or approved by the Foodand Drug Administration.PATIENT WAS FASTINGPERFORMED BY: [employer] [address] [id number] BY: Pinocular6370 [facility] [id number] Glucose [Mass/Vol] 87 mg/dL Normal 65-99 [facility] Internal Medicine; [facility] Work Phone: Comment on above: Test(s) 143010-FBQ-B ; 598151-ZCG-I; 867675-Hbhboqjhvmfoz; 177988-Oqwvyyrsdlc, Total; 847908-JZC-L (Total); 435958-Xtvnx LDL-P; 448927-YOP Size; 193934-DQ-EE Scorewas developed and its performance characteristics determinedby [employer]. It has not been cleared or approved by the Foodand Drug Administration.PATIENT WAS FASTINGPERFORMED BY: [employer] [address] [id number] BY: iChange70 3se[facility]yUNC [facility]oir [id number] Potassium [Moles/Vol] 4.8 mmol/L Normal 3.5-5.2 [facility] Internal Medicine; [facility] Work Phone: Comment on above: Test(s) 981691-IIQ-M ; 773301-DBA-F; 040530-Aamtghqwyfick; 938733-Eskeyjgojlh, Total; 704499-HGO-H (Total); 048816-Zdruk LDL-P; 121012-DIO Size; 020016-SF-TC Scorewas developed and its performance characteristics determinedby [employer]. It has not been cleared or approved by the Foodand Drug Administration.PATIENT WAS FASTINGPERFORMED BY: [employer] [address] [id number] BY: iChange70 3seventyUNC Health Lenoir [id number] Protein [Mass/Vol] 6.8 g/dL Normal 6.0-8.5 [facility] Internal Medicine; [facility] Internal Medicine Work Phone: Comment on above: Test(s) 795455-NML-E ; 113290-TRX-M; 464910-Ftfyzgxjzcsrj; 707142-Urihpskqppr, Total; 023756-VKR-N (Total); 770016-Gpdns LDL-P; 815753-KAH Size; 888087-QK-VL Scorewas developed and its performance characteristics determinedby [employer]. It has not been cleared or approved by the Foodand Drug Administration.PATIENT WAS FASTINGPERFORMED BY: [employer] [address] [id number] BY: iChange70 [facility] [id number] Sodium [Moles/Vol] 142 mmol/L Normal 134-144 [facility] Internal [facility]; [facility] Work Phone: Comment on above: Test(s) 091683-WWF-T ; 210368-WUZ-H; 554010-Ekryrrsqcrpht; 478210-Hucpqowxsbw, Total; 288039-FAZ-Y (Total); 470497-Lfmjd LDL-P; 489644-OCU Size; 613714-DS-UJ Scorewas developed and its performance characteristics determinedby [employer]. It has not been cleared or approved by the Foodand Drug Administration.PATIENT WAS FASTINGPERFORMED BY: RE[employer]UE.com[address] [id number] BY: Pinocular6370 [facility] [id number] Urea nitrogen [Mass/Vol] 11 mg/dL Normal 8-27 [facility]; [facility] Work Phone: Comment on above: Test(s) 724205-AEY-Z ; 569360-DLQ-E; 383481-Arhkieoganjfj; 361430-Uzjyjcomoim, Total; 103840-QVT-C (Total); 632866-Ratre LDL-P; 267032-CBZ Size; 401308-DF-IT Scorewas developed and its performance characteristics determinedby [employer]. It has not been cleared or approved by the Foodand Drug Administration.PATIENT WAS FASTINGPERFORMED BY: RE[employer]UE.com[address] [id number] BY: [employer] Chamlq6681 [facility] [id number] Urea nitrogen/Creatinine [Mass ratio] 14 mg/mg Normal 12-28 [facility]; [facility] Work Phone: Comment on above: Test(s) 886654-UQC-B ; 660228-GEM-B; 375885-Gzqxuzetbxezz; 041128-Gzbqmcpxgyb, Total; 952677-EAQ-Z (Total); 481473-Atngu LDL-P; 220771-JAM Size; 216619-FV-PT Scorewas developed and its performance characteristics determinedby [employer]. It has not been cleared or approved by the Foodand Drug Administration.PATIENT WAS FASTINGPERFORMED BY: [employer] [address] [id number] BY: [employer] Tele[employer] IncPresbyterian HospitalNyethi7895 [facility] [id number] MICROALB;CREAT RATION, RAND UR (38364)Ordered By: Cook Syrup Maker on 07-10-2020 Albumin DL <= 20 mg/L (U) [Mass/Vol] 5.6 ug/mL Normal Comprehensiv e Internal Medicine; [facility] Work Phone: Comment on above: Test(s) 503133-CGP-Y ; 559760-EKR-X; 569378-Kkfbzihaxbooa; 016155-Ayxwchdiotm, Total; 263890-GHX-M (Total); 343766-Ifwnj LDL-P; 929272-ZBW Size; 726380-XU-YF Scorewas developed and its performance characteristics determinedby [employer]. It has not been cleared or approved by the Foodand Drug Administration.PATIENT WAS FASTINGPERFORMED BY: [employer] [address] [id number] BY: [employer] Hmdgeo9125 [facility] [id number] Albumin/Creatinine (U) [Mass ratio] 7 {mg/g_creat} Normal 0-29 [facility]; [facility] Work Phone: Comment on above: Normal: 0 - 29 Moder ately increased: 30 - 300 Severely increased: >300 Test(s) 664218-OZE-P ; 415976-FSP-Q; 132951-Nvzqbzuqonrpt; 806115-Pjqznikuuel, Total; 473378-GQR-N (Total); 870887-Jqgzr LDL-P; 971943-HMF Size; 508457-DZ-NH Scorewas developed and its performance characteristics determinedby [employer]. It has not been cleared or approved by the Foodand Drug Administration.PATIENT WAS FASTINGPERFORMED BY: [employer] [address] [id number] BY: Pinocular6370 3seventyUNC Health Lenoir [id number] Creatinine (U) [Mass/Vol] 85.8 mg/dL Normal [facility]; [facility] Work Phone: Comment on above: Test(s) 999542-BEO-W ; 229435-DSV-O; 346761-Wtxmxpulittdi; 273493-Wmomytiddgm, Total; 596913-DGE-U (Total); 553173-Qfric LDL-P; 975488-VPS Size; 446501-MA-AC Scorewas developed and its performance characteristics determinedby [employer]. It has not been cleared or approved by the Foodand Drug Administration.PATIENT WAS FASTINGPERFORMED BY: [employer] [address] [id number] BY: Pinocular6370 [facility] [id number] NMR Profile (37902)Ordered B y: Cook Syrup Maker on 07-10-2020 Cholesterol [Mass/Vol] 159 mg/dL Normal 100-199 [facility]; [facility] Work Phone: Comment on above: Test(s) 358111-NVF-G ; 695150-XZC-B; 167295-Iwdzvcqpadqxi; 573275-Vbztjolyyaw, Total; 093098-TRQ-D (Total); 562699-Juxok LDL-P; 148481-ZFW Size; 752193-EI-WC Scorewas developed and its performance characteristics determinedby [employer]. It has not been cleared or approved by the Foodand Drug Administration.PATIENT WAS FASTINGPERFORMED BY: [employer] [address] [id number] BY: Pinocular6370 [facility] [id number] Lipoprotein.alpha [Moles/Vol] 36.6 umol/L Normal [facility]; [facility] Work Phone: Comment on above: Test(s) 765721-GYX-S ; 493943-ZOY-C; 638547-Moytynabwmwwx; 552406-Csxsjegqpqc, Total; 782489-NMA-U (Total); 088615-Qcxru LDL-P; 584295-DGC Size; 594305-WD-VW Scorewas developed and its performance characteristics determinedby [employer]. It has not been cleared or approved by the Foodand Drug Administration.PATIENT WAS FASTINGPERFORMED BY: [facility] Dsxocjzvll7390 [facility] [id number] BY: [facility] Jffrdw5867 [facility] [id number] Lipoprotein.beta.sub particle [Entitic length] 20.0 nm Abnormal [facility]; [facility] Work Phone: Comment on above: INTERPRETATIVE INFORMATION PARTICLE CONCENTRATION AND SIZE <--Lower CVD Risk Higher CVD Risk--> LDL AND HDL PARTICLES Percentile in Reference Population HDL-P (total) High 75th 50th 25th Low >34.9 34.9 30.5 26.7 <26.7 . Small LDL-P Low 25th 50th 75th High <117 117 527 839 >839 . LDL Size <-Large (Pattern A)-> <-Small (Pattern B)-> 23.0 20.6 20.5 19.0 Small LDL-P and LDL Size are associated with CVD risk, but not afterLDL-P is taken into account. Test(s) 600408-LNQ-Z ; 700345-ULA-Q; 163733-Uzfvydtvvdabo; 543725-Wuzqjwsvazp, Total; 253006-XEG-M (Total); 816939-Ubjlj LDL-P; 381218-PAC Size; 494687-SP-ER Scorewas developed and its performance characteristics determinedby [employer]. It has not been cleared or approved by the Foodand Drug Administration.PATIENT WAS FASTINGPERFORMED BY: [employer] [address] [id number] BY: [facility] CenterPresbyterian HospitalQbozez1586 [facility] [id number] Lipoprotein.beta.sub particle [Moles/Vol] 1160 nmol/L Abnormal Comprehensi ve Internal Medicine; [facility] Work Phone: Comment on above: Low < 1000 Moderate 1000 - 1299 Borderline-High 1300 - 1599 High 1600 - 2000 Very High > 2000 Test(s) 742864-ZQM-I ; 451960-LST-W; 911809-Yptfxmexatqsx; 269815-Nbgguqhybal, Total; 778792-RWT-W (Total); 872674-Bgnyd LDL-P; 994450-SZE Size; 695307-FE-HJ Scorewas developed and its performance characteristics determinedby [employer]. It has not been cleared or approved by the Foodand Drug Administration.PATIENT WAS FASTINGPERFORMED BY: [employer] [address] [id number] BY: Pinocular6370 [facility] [id number] Lipoprotein.beta.sub particle.small [Moles/Vol] 783 nmol/L Abnormal [facility]; [facility] Work Phone: Comment on above: Test(s) 251191-AOX-O ; 289400-GRA-A; 180132-Patzbfvgclsej; 180554-Axvyqitvazz, Total; 032873-ANS-J (Total); 480200-Jcfvl LDL-P; 468610-AOT Size; 323777-LR-EP Scorewas developed and its performance characteristics determinedby [employer]. It has not been cleared or approved by the Foodand Drug Administration.PATIENT WAS FASTINGPERFORMED BY: [employer] [address] [id number] BY: [facility] CenterHampton Behavioral Health CenterCyebpi0079 [facility] [id number] Triglyceride [Mass/Vol] 151 mg/dL Abnormal 0-149 [facility]; [facility] Work Phone: Comment on above: Test(s) 054410-SPZ-B ; 524007-PNA-M; 316497-Zituqcpaugyqz; 735714-Xosvyvxeknh, Total; 791387-INP-I (Total); 136667-Bzrds LDL-P; 312495-DJC Size; 391594-MH-EC Scorewas developed and its performance characteristics determinedby [employer]. It has not been cleared or approved by the Foodand Drug Administration.PATIENT WAS FASTINGPERFORMED BY: [employer] [id number] BY: [employer] IncHampton Behavioral Health CenterLzihal3845 [facility] [id number] NMR Profile (78810) 79 mg/dL Normal 0-99 [facility]; [facility] Work Phone: Comment on above: . Optimal < 100 Abov e optimal 100 - 129 Borderline 130 - 159 High 160 - 189 Very high > 189 . Test(s) 798337-LPR-O ; 073424-ARK-F; 197352-Ujhfjeufoibio; 837150-Mnwmjpgvdxf, Total; 242990-PHF-D (Total); 572260-Vuphv LDL-P; 470849-JSN Size; 436808-UE-KJ Scorewas developed and its performance characteristics determinedby [employer]. It has not been cleared or approved by the Foodand Drug Administration.PATIENT WAS FASTINGPERFORMED BY: [employer] [address] [id number] BY: [facility]6370 [facility] [id number] NMR Profile (67819) 54 mg/dL Normal [facility] Internal [facility]; [facility] Work Phone: Comment on above: Test(s) 036605-FMX-K ; 331180-HBM-Y; 781425-Yqvagcuoofvun; 435761-Hgwvhykpyah, Total; 163574-AOG-P (Total); 407243-Kyznq LDL-P; 918395-JZO Size; 592072-SB-TC Scorewas developed and its performance characteristics determinedby [employer]. It has not been cleared or approved by the Foodand Drug Administration.PATIENT WAS FASTINGPERFORMED BY: [employer] Zywvhshvid6295 [facility] [id number] BY: [employer] Telemetrics IncHampton Behavioral Health CenterHaroue7322 [facility] [id number] TSH (THYROID STIMULATING HOR OMAR) (00699)Ordered By: Cook Syrup Maker on 07-10-2020 TSH Qn 1.250 {uIU/mL} Normal 0.450-4.50 0 [facility]; [facility] Work Phone: Comment on above: Test(s) 273701-QMC-X ; 312800-FXG-R; 788089-Pxpeouzgvqunu; 549803-Zprbnzxmrjm, Total; 968679-MTZ-J (Total); 139805-Fvwml LDL-P; 339378-SPP Size; 901212-UT-HT Scorewas developed and its performance characteristics determinedby [employer]. It has not been cleared or approved by the Foodand Drug Administration.PATIENT WAS FASTINGPERFORMED BY: [employer] Wsosmgskcv0285 [facility] [id number] BY: [employer] Tele[employer] IncHampton Behavioral Health CenterNcoquo8589 [facility] [id number] 2018 Novel Coronavirus (COVI D-19), MARIA DE JESUS ([id number])Ordered By: Cook Syrup Maker on 02-23-20202018 Novel Coronavirus (COVID-19), MARIA DE JESUS ([id number]) Not Detected Normal [facility] Work Phone: Comment on above: This test was develo ped and its performance characteristics determinedby [employer]. This test has not been FDA cleared orapproved. This test has been authorized by FDA under an Emergency UseAuthorization (EUA). This test is only authorized for the duration oftime the declaration that circumstances exist justifying theauthorization of the emergency use of in vitro diagnostic tests fordetection of SARS-CoV-2 virus and/or diagnosis of COVID-19 infectionunder section 564(b)(1) of the Act, 21 U.S.C. 360bbb-3(b)(1), unlessthe authorization is terminated or revoked sooner.When diagnostic testing is negative, the possibility of a falsenegative result should be considered in the context of a patient'srecent exposures and the presence of clinical signs and symptomsconsistent with COVID-19. An individual without symptoms of COVID-19and who is not shedding SARS-CoV-2 virus would expect to have anegative (not detected) result in this assay. PATIENT NOT FASTINGP ERFORMED BY: [employer] Akkbxysrrt3661 [place] [id number] Information: NASAL 2019 Novel Coronavirus (COVID-19), MARIA DE JESUS ([id number]) Not detected Normal [facility]; [facility] Work Phone: Comment on above: This test was develo ped and its performance characteristics determinedby [employer]. This test has not been FDA cleared orapproved. This test has been authorized by FDA under an Emergency UseAuthorization (EUA). This test is only authorized for the duration oftime the declaration that circumstances exist justifying theauthorization of the emergency use of in vitro diagnostic tests fordetection of SARS-CoV-2 virus and/or diagnosis of COVID-19 infectionunder section 564(b)(1) of the Act, 21 U.S.C. 360bbb-3(b)(1), unlessthe authorization is terminated or revoked sooner.When diagnostic testing is negative, the possibility of a falsenegative result should be considered in the context of a patient'srecent exposures and the presence of clinical signs and symptomsconsistent with COVID-19. An individual without symptoms of COVID-19and who is not shedding SARS-CoV-2 virus would expect to have anegative (not detected) result in this assay. PATIENT NOT FASTINGP ERFORMED BY: [employer] Ptcebpflib3671 [place]ful[place] [id number] Information: NASAL MICROALBUMINOrdered By: Syst em Fishing Vessel Mate on 01-05-2020 Albumin DL <= 20 mg/L (U) [Mass/Vol] 3.9 ug/mL Normal Comprehensiv e Internal Medicine Work Phone: Comment on above: PATIENT NOT FASTINGP ERFORMED BY: [employer] Bwehho3571 [facility] [id number] Albumin/Creatinine (U) [Mass ratio] 7 {mg/g_creat} Normal 0-29 [facility] Work Phone: Comment on above: Normal: 0 - 29 Moder ately increased: 30 - 300 Severely increased: >300 Please note reference interval change PATIENT NOT FASTINGP ERFORMED BY: BENITO [facility] Ugtdpo7688 Tim RoadDublin [place] [id number] Creatinine (U) [Mass/Vol] 59.2 mg/dL Normal [facility] Work Phone: Comment on above: PATIENT NOT FASTINGP ERFORMED BY: BENITO [facility] Lnuvwb8680 Tim RoadDublin [place] [id number] POTASSIUM SERUM (28323)Order ed By: Cook Syrup Maker on 01-05-2020 Potassium [Moles/Vol] 4.6 mmol/L Normal 3.5-5.2 [facility] Work Phone: Comment on above: PATIENT NOT FASTINGP ERFORMED BY: BENITO [facility] Mzhona4017 Tim RoadDublin [place] [id number] URINALYSIS, W/ MICRO (10308) Ordered By: Cook Syrup Maker on 01-05-2020 Appearance (U) Clear Normal Comprehens enmanuel Internal Medicine Work Phone: Comment on above: PATIENT NOT FASTINGP ERFORMED BY: BENITO [facility] Gxeokn4902 Tim RoadDublin [place] [id number] Bilirubin Ql (U) Negative Normal Comprehe nsive Internal Medicine Work Phone: Comment on above: PATIENT NOT FASTINGP ERFORMED BY: CB [facility] Ygkgiz0459 Tim RoadDublin [place] [id number] Bilirubin Ql (U) Negative Normal Comprehe nsive Internal Medicine; [facility] Work Phone: Comment on above: PATIENT NOT FASTINGP ERFORMED BY: CB [facility] Xuqelh9230 Tim RoadDublin [place] [id number] Color (U) Yellow Normal [facility] Work Phone: Comment on above: PATIENT NOT FASTINGP ERFORMED BY: CB [facility] Ommmgb2996 Tim RoadDublin [place] [id number] Glucose Ql (U) Negative Normal Comprehens enmanuel Internal Medicine Work Phone: Comment on above: PATIENT NOT FASTINGP ERFORMED BY: BENITO AnnabelChristie MustafaSrlyen1111 [facility] [id number] Glucose Ql (U) Negative Normal Comprehens enmanuel Internal Medicine; [facility] Work Phone: Comment on above: PATIENT NOT FASTINGP ERFORMED BY: BENITO Mustafalin6370 [facility] [id number] Hemoglobin Ql (U) 1+ Abnormal Compreh ensive Internal Medicine Work Phone: Comment on above: PATIENT NOT FASTINGP ERFORMED BY: BENITO Mustafalin6370 [facility] [id number] Ketones Ql (U) Negative Normal Comprehens enmanuel Internal Medicine Work Phone: Comment on above: PATIENT NOT FASTINGP ERFORMED BY: BENITO Mustafalin6370 [facility] [id number] Ketones Ql (U) Negative Normal Comprehens enmanuel Internal Medicine; [facility] Work Phone: Comment on above: PATIENT NOT FASTINGP ERFORMED BY: BNEITO Mustafalin6370 [facility] [id number] Leukocyte esterase Test strip Ql (U) Negative Normal [facility] Work Phone: Comment on above: PATIENT NOT FASTINGP ERFORMED BY: BENITO Mustafalin6370 [facility] [id number] Leukocyte esterase Test strip Ql (U) Negative Normal [facility]; [facility] Work Phone: Comment on above: PATIENT NOT FASTINGP ERFORMED BY: BENITO Mustafalin6370 [facility] [id number] Microscopic observation LM Nom (Urine sed) See below: Normal [facility] Work Phone: Comment on above: Microscopic was gianna cated and was performed. PATIENT NOT FASTINGP ERFORMED BY: BENITO Mustafalin6370 [facility]in [place] [id number] Nitrite Ql (U) Negative Normal Comprehens enmanuel Internal Medicine Work Phone: Comment on above: PATIENT NOT FASTINGP ERFORMED BY: BENITO Mcclain6370 Tim Roadblin [place] [id number] Nitrite Ql (U) Negative Normal Comprehens enmanuel Internal Medicine; [facility] Work Phone: Comment on above: PATIENT NOT FASTINGP ERFORMED BY: BENITO Gatito Ffjzlf9150 Tim [facility] [id number] pH (U) 6.5 [pH] Normal 5.0-7.5 [facility] Work Phone: Comment on above: PATIENT NOT FASTINGP ERFORMED BY: BENITO Gatito Mustafalin6370 Tim [facility] [id number] Protein Ql (U) Negative Normal Comprehens enmanuel Internal Medicine Work Phone: Comment on above: PATIENT NOT FASTINGP ERFORMED BY: BENITO Aron Korycu5559 Tim [facility] [id number] Protein Ql (U) Negative Normal Comprehens enmanuel Internal Medicine; [facility] Work Phone: Comment on above: PATIENT NOT FASTINGP ERFORMED BY: BENITO Gatito Sam70 [facility] [id number] Specific gravity (U) [Rel density] 1.009 1 Normal 1.005-1.03 0 [facility] Work Phone: Comment on above: PATIENT NOT FASTINGP ERFORMED BY: BENITO Aron Opcbtd9096 Tim [facility] [id number] Urobilinogen (U) [Mass/Vol] 0.2 mg/dL Normal 0.2-1.0 [facility]; [facility] Work Phone: Comment on above: PATIENT NOT FASTINGP ERFORMED BY: BENITO AnnabelSaint [facility]'S [facility] Muiuja8759 Tim [facility] [id number] Urobilinogen Test strip (U) [Mass/Vol] 0.2 mg/dL Normal 0.2-1.0 Comprehensi Internal Medicine Work Phone: Comment on above: PATIENT NOT FASTINGP ERFORMED BY: BENITO [employer] Telemetrics IncHampton Behavioral Health CenterHkghmf5017 [facility] [id number] CALCIFIDIOL (63647) VIT D 25 Ordered By: Cook Syrup Maker on 01-03-2020 25-Hydroxyvitamin D2+25-Hydroxyvitamin D3 [Mass/Vol] 69.5 ng/mL Normal 30.0-100.0 [facility] Work Phone: Comment on above: Vitamin D deficiency has been defined by the [place] ofMedicine and an Endocrine Society practice guideline as alevel of serum 25-OH vitamin D less than 20 ng/mL (1,2).The Endocrine Society went on to further define vitamin Dinsufficiency as a level between 21 and 29 ng/mL (2).1. IOM ([place] of Medicine). 2010. Dietary reference intakes for calcium and D. [place]: The National Academies Press.2. Latanya MF, Victorino LOYOLA, Alysia HENDRICKSON, et al. Evaluation, treatment, and prevention of vitamin D deficiency: an Endocrine Society clinical practice guideline. JCEM. 2010; 96(7):1911-30. Test(s) 128843-PSR-N ; 618045-BQS-W; 208029-ABK-V; 866268-Mskqnvjijofxg; 447726-Qniygebjfpl, Total; 732222-NPV-J (Total);163604-Yjixo LDL-P; 835010-FQE Size; 524058-AL-KS Scorewas developed and its performance characteristics determinedby [employer]. It has not been cleared or approved by the Foodand Drug Administration.PATIENT WAS FASTINGPERFORMED BY: [employer] IncJeremiah V[place] 977807 [facility] [id number] BY: BENITO Applied Tele[employer] IncHampton Behavioral Health CenterTiruej9351 [facility] [id number] CBC W/AUTO DIFF WBC (11327)O rdered By: Cook Syrup Maker on 01-03-2020 Basophils (Bld) [#/Vol] 0.1 {x10E3/uL} Normal 0.0-0.2 [facility] Work Phone: Comment on above: Test(s) 196958-REF-X ; 913067-OBT-R; 097207-MOR-L; 802182-Dpltivjwpicqc; 249122-Ixecnhwjvja, Total; 265654-THP-C (Total);145715-Vlwdo LDL-P; 697403-XVD Size; 059406-AA-YK Scorewas developed and its performance characteristics determinedby [employer]. It has not been cleared or approved by the Foodand Drug Administration.PATIENT WAS FASTINGPERFORMED BY: [employer] [address] [id number] BY: [employer]70 [facility] [id number] Basophils (Bld) [#/Vol] 0.1 10*3/uL Normal 0.0-0.2 [facility]; [facility] Work Phone: Comment on above: Test(s) 719959-XSB-C ; 360182-TZD-O; 846721-JJR-W; 509492-Pfuijbahbnowc; 876863-Gdoqrzfkini, Total; 625560-XYM-E (Total);402962-Vpbzk LDL-P; 941138-CXU Size; 626812-IR-QM Scorewas developed and its performance characteristics determinedby [employer]. It has not been cleared or approved by the Foodand Drug Administration.PATIENT WAS FASTINGPERFORMED BY: [employer] [address] [id number] BY: [employer]6370 Tim [facility]UNC [facility] [id number] Basophils/100 WBC (Bld) 1 % Normal [facility] Work Phone: Comment on above: Test(s) 895521-IPL-N ; 976182-PPE-T; 308950-JNI-Z; 913644-Mnpsfjtpqgzki; 819437-Zcgzbhnwzgj, Total; 633802-VHC-D (Total);654955-Kxjaj LDL-P; 726085-KUB Size; 739346-PH-KO Scorewas developed and its performance characteristics determinedby [employer]. It has not been cleared or approved by the Foodand Drug Administration.PATIENT WAS FASTINGPERFORMED BY: Ahometo[address] [id number] BY: [employer] Iujrxc4799 [facility] [id number] Eosinophils (Bld) [#/Vol] 0.3 {x10E3/uL} Normal 0.0-0.4 [facility] Work Phone: Comment on above: Test(s) 686102-RDD-T ; 298189-IOZ-W; 565239-WRO-L; 976519-Hcjmuvxusykrf; 683925-Edumtsuobdr, Total; 940584-AAT-K (Total);537172-Kcwfd LDL-P; 527699-COP Size; 417853-XO-EK Scorewas developed and its performance characteristics determinedby [employer]. It has not been cleared or approved by the Foodand Drug Administration.PATIENT WAS FASTINGPERFORMED BY: [employer] [id number] BY: [employer]6370 [facility] [id number] Eosinophils (Bld) [#/Vol] 0.3 10*3/uL Normal 0.0-0.4 [facility]; [facility] Work Phone: Comment on above: Test(s) 084399-ZQG-I ; 891902-LXH-I; 233565-IES-P; 816834-Bjfxfjlxgvqda; 703987-Hiqouqahnqt, Total; 460119-ATD-F (Total);533323-Pwvrg LDL-P; 563394-PCA Size; 013519-OE-WB Scorewas developed and its performance characteristics determinedby [employer]. It has not been cleared or approved by the Foodand Drug Administration.PATIENT WAS FASTINGPERFORMED BY: [employer] [id number] BY: [employer] IncHampton Behavioral Health CenterMcwtjb2716 [facility] [id number] Eosinophils/100 WBC (Bld) 3 % Normal [facility] Work Phone: Comment on above: Test(s) 063699-LQV-V ; 927949-OGF-H; 773559-JVP-L; 554287-Fmmkdvsveirmq; 121409-Vjpvoibjkbh, Total; 787770-PMC-L (Total);008123-Qwsji LDL-P; 075759-YYZ Size; 486877-DS-AP Scorewas developed and its performance characteristics determinedby [employer]. It has not been cleared or approved by the Foodand Drug Administration.PATIENT WAS FASTINGPERFORMED BY: [employer] [address] [id number] BY: [employer]70 [facility] [id number] Erythrocyte distribution width (RBC) [Ratio] 13.1 % Normal 11.7-15.4 [facility] Work Phone: Comment on above: Test(s) 825324-FMZ-Z ; 955958-UYY-C; 643300-MRV-D; 936916-Frisspsmvkgbd; 196879-Jdejtcospqk, Total; 068363-HEF-I (Total);133082-Ytakm LDL-P; 641092-LBD Size; 649584-QR-IG Scorewas developed and its performance characteristics determinedby [employer]. It has not been cleared or approved by the Foodand Drug Administration.PATIENT WAS FASTINGPERFORMED BY: [employer] [address] [id number] BY: [employer] Vhanyz8974 [facility] [id number] Hematocrit (Bld) [Volume fraction] 37.6 % Normal 34.0-46.6 [facility] Work Phone: Comment on above: Test(s) 662673-RHE-C ; 465242-LSS-Y; 986273-PGB-X; 275065-Obaadjpculxve; 334730-Mbgjtjrxxej, Total; 551765-NIT-L (Total);770250-Ehzju LDL-P; 358681-ETD Size; 027381-OD-GJ Scorewas developed and its performance characteristics determinedby [employer]. It has not been cleared or approved by the Foodand Drug Administration.PATIENT WAS FASTINGPERFORMED BY: Ahometo[address] [id number] BY: [facility] Najblc9371 [facility] [id number] Hemoglobin (Bld) [Mass/Vol] 11.8 g/dL Normal 11.1-15.9 [facility] Work Phone: Comment on above: Test(s) 806672-DOR-R ; 190033-OVM-J; 870231-VGY-N; 330953-Xjlhsfrfwpaep; 186829-Cwpxaxufaby, Total; 015321-WNC-E (Total);543342-Zxxcn LDL-P; 948191-XZR Size; 628613-PY-MA Scorewas developed and its performance characteristics determinedby [employer]. It has not been cleared or approved by the XLerant Drug Administration.PATIENT WAS FASTINGPERFORMED BY: [employer] [address] [id number] BY: [employer]6370 [facility] [id number] Immature granulocytes (Bld) [#/Vol] 0.0 {x10E3/uL} Normal 0.0-0.1 [facility] Work Phone: Comment on above: Test(s) 641094-BAI-C ; 789782-IEW-P; 193641-VIG-R; 403848-Vyuwrkzpxfntb; 405259-Huuyrgihuyd, Total; 540418-WHK-F (Total);482180-Gepsr LDL-P; 879157-MSK Size; 514055-KL-MA Scorewas developed and its performance characteristics determinedby [employer]. It has not been cleared or approved by the FoodHlongwane Capital Drug Administration.PATIENT WAS FASTINGPERFORMED BY: [employer] [address] [id number] BY: [facility] CenterHampton Behavioral Health CenterIdeywd1761 [facility] [id number] Immature granulocytes (Bld) [#/Vol] 0.0 10*3/uL Normal 0.0-0.1 [facility]; [facility] Work Phone: Comment on above: Test(s) 708492-IEO-D ; 841668-EFN-N; 556758-ICN-J; 977348-Fdnkpzcpgwdbe; 071425-Etqmjruqcad, Total; 409701-OXK-D (Total);328529-Volbv LDL-P; 785342-BPD Size; 296168-DQ-FV Scorewas developed and its performance characteristics determinedby [employer]. It has not been cleared or approved by the Foodand Drug Administration.PATIENT WAS FASTINGPERFORMED BY: [employer] [address] [id number] BY: [employer]70 [facility] [id number] Immature granulocytes/100 WBC (Bld) 0 % Normal [facility] Work Phone: Comment on above: Test(s) 146462-NMK-M ; 770266-SLH-N; 176682-MOD-Q; 345164-Oklsfeozxsyzc; 583974-Gudqeyovryr, Total; 644165-GVH-I (Total);200817-Imyjo LDL-P; 649977-IZN Size; 186324-NR-TT Scorewas developed and its performance characteristics determinedby [employer]. It has not been cleared or approved by the FoodHlongwane Capital Drug Administration.PATIENT WAS FASTINGPERFORMED BY: [employer] [address] [id number] BY: Pinocular6370 [facility] [id number] Lymphocytes (Bld) [#/Vol] 2.8 {x10E3/uL} Normal 0.7-3.1 [facility] Work Phone: Comment on above: Test(s) 124423-OOS-K ; 211860-XMA-M; 077447-GJM-H; 158818-Mpvagsdnshyfj; 284839-Tmoszvfjeke, Total; 790829-PFF-A (Total);397022-Okfgi LDL-P; 997250-NDH Size; 714871-CE-GM Scorewas developed and its performance characteristics determinedby [employer]. It has not been cleared or approved by the Foodand Drug Administration.PATIENT WAS FASTINGPERFORMED BY: [employer] [address] [id number] BY: [employer] Kfzlre8629 [facility]Northern [facility] [id number] Lymphocytes (Bld) [#/Vol] 2.8 10*3/uL Normal 0.7-3.1 [facility]; [facility] Work Phone: Comment on above: Test(s) 714353-ORY-N ; 975359-RHY-T; 894838-HAZ-I; 817018-Hvakdmuhcqycq; 890237-Coxprdgndty, Total; 033868-AKC-M (Total);509885-Fsdzg LDL-P; 209200-JRP Size; 171946-ZX-AY Scorewas developed and its performance characteristics determinedby [employer]. It has not been cleared or approved by the Foodand Drug Administration.PATIENT WAS FASTINGPERFORMED BY: RE[employer]UE[employer]com[address] [id number] BY: Pinocular6370 [facility] [id number] Lymphocytes/100 WBC (Bld) 35 % Normal [facility] Work Phone: Comment on above: Test(s) 133994-FJB-N ; 839008-HPN-X; 478281-EBR-U; 504339-Fwlovwcacftbf; 600853-Cqybtbvvhqb, Total; 932174-DQX-X (Total);677781-Zysdk LDL-P; 829407-ALA Size; 369425-KG-MW Scorewas developed and its performance characteristics determinedby [employer]. It has not been cleared or approved by the Foodand Drug Administration.PATIENT WAS FASTINGPERFORMED BY: [employer] [address] [id number] BY: [facility] CenterHampton Behavioral Health CenterHlkale1570 [facility] [id number] MCH (RBC) [Entitic mass] 28.2 pg Normal 26.6-33.0 [facility] Work Phone: Comment on above: Test(s) 044508-WID-Y ; 927106-ZXJ-J; 539802-ZCS-P; 412775-Ownrdbblafyjb; 274549-Koenytfdocm, Total; 465645-OLA-G (Total);105920-Rnbzc LDL-P; 099460-DTT Size; 389685-WS-YK Scorewas developed and its performance characteristics determinedby [employer]. It has not been cleared or approved by the Foodand Drug Administration.PATIENT WAS FASTINGPERFORMED BY: [employer] [address] [id number] BY: iChange70 [facility] [id number] MCHC (RBC) [Mass/Vol] 31.4 g/dL Abnormal 31.5-35.7 [facility] Work Phone: Comment on above: Test(s) 981666-TAW-G ; 893580-BMG-V; 298981-SYA-G; 883187-Ivblaevxwaazh; 195546-Mxtwuqghfma, Total; 464299-UQT-Z (Total);285827-Tcutm LDL-P; 521559-ZJM Size; 528429-DG-FH Scorewas developed and its performance characteristics determinedby [employer]. It has not been cleared or approved by the Foodand Drug Administration.PATIENT WAS FASTINGPERFORMED BY: [employer] [address] [id number] BY: Pinocular6370 [facility] [id number] MCV (RBC) [Entitic vol] 90 fL Normal 79-97 [facility] Work Phone: Comment on above: Test(s) 569653-FMQ-M ; 245760-YGU-L; 520561-IXP-W; 759402-Hodyomnxaudtn; 228658-Pfbmmbhholu, Total; 741850-ONV-L (Total);020546-Htzzq LDL-P; 295082-YSG Size; 994961-YB-YL Scorewas developed and its performance characteristics determinedby [employer]. It has not been cleared or approved by the Foodand Drug Administration.PATIENT WAS FASTINGPERFORMED BY: BN LabCo[address] [id number] BY: [employer] Owzwqv5922 [facility] [id number] Monocytes (Bld) [#/Vol] 0.7 {x10E3/uL} Normal 0.1-0.9 [facility] Work Phone: Comment on above: Test(s) 725757-ILR-T ; 795884-VWS-J; 803345-MZC-E; 583022-Utelkkgedfyqv; 864223-Nclyzkkdfsg, Total; 839810-PJN-Y (Total);815382-Encty LDL-P; 526593-VVS Size; 909174-WC-UQ Scorewas developed and its performance characteristics determinedby [employer]. It has not been cleared or approved by the Foodand Drug Administration.PATIENT WAS FASTINGPERFORMED BY: [employer] [address] [id number] BY: Pinocular6370 [facility] [id number] Monocytes (Bld) [#/Vol] 0.7 10*3/uL Normal 0.1-0.9 [facility]; [facility] Work Phone: Comment on above: Test(s) 679117-ZYG-T ; 155245-BEZ-N; 307747-VUB-X; 307053-Iwzlzjizkqeve; 956217-Pwpnkeretoy, Total; 496767-CMV-A (Total);761375-Hxqdh LDL-P; 317555-YHR Size; 114155-ZV-UC Scorewas developed and its performance characteristics determinedby [employer]. It has not been cleared or approved by the Foodand Drug Administration.PATIENT WAS FASTINGPERFORMED BY: Ah[employer] [id number] BY: [facility] CenterHampton Behavioral Health CenterYqejmn4559 [facility] [id number] Monocytes/100 WBC (Bld) 9 % Normal [facility] Work Phone: Comment on above: Test(s) 257534-DDI-Z ; 756218-FQJ-D; 873498-BTW-D; 745466-Npqxymkrpxrzs; 209065-Dmqlwymdbme, Total; 914895-JDM-T (Total);673582-Rkiel LDL-P; 902382-VIT Size; 569979-NW-CA Scorewas developed and its performance characteristics determinedby [employer]. It has not been cleared or approved by the Foodand Drug Administration.PATIENT WAS FASTINGPERFORMED BY: [employer] [id number] BY: [employer] Telemetrics IncPenny Ville [id number] [facility] [id number] Neutrophils (Bld) [#/Vol] 4.2 {x10E3/uL} Normal 1.4-7.0 [facility] Work Phone: Comment on above: Test(s) 314194-JSR-I ; 867652-PHE-Q; 666909-WOO-T; 150061-Xzvekldbcocqu; 507169-Ykxdnotulgc, Total; 112494-UBG-R (Total);844573-Mtaqn LDL-P; 218689-OJJ Size; 192310-QO-YA Scorewas developed and its performance characteristics determinedby [employer]. It has not been cleared or approved by the Foodand Drug Administration.PATIENT WAS FASTINGPERFORMED BY: [employer] [id number] BY: [employer] Tele[employer] IncHampton Behavioral Health CenterSeilxh9131 [facility] [id number] Neutrophils (Bld) [#/Vol] 4.2 10*3/uL Normal 1.4-7.0 [facility]; [facility] Work Phone: Comment on above: Test(s) 624506-ZCZ-D ; 489519-HZT-R; 901439-LKX-P; 162559-Ckfkwsxknzzdr; 057590-Fidffqrlgme, Total; 082521-LFB-D (Total);342006-Hydrc LDL-P; 488220-UEZ Size; 181453-JS-LW Scorewas developed and its performance characteristics determinedby [employer]. It has not been cleared or approved by the Foodand Drug Administration.PATIENT WAS FASTINGPERFORMED BY: [employer] [address] [id number] BY: iChange70 [facility] [id number] Neutrophils/100 WBC (Bld) 52 % Normal [facility] Work Phone: Comment on above: Test(s) 582734-OPK-K ; 424599-JNJ-R; 571673-MTY-F; 724191-Kanyctpoftzon; 083271-Wecqurceeit, Total; 261520-FTZ-P (Total);310698-Ezdjc LDL-P; 796927-RUI Size; 916878-TI-MY Scorewas developed and its performance characteristics determinedby [employer]. It has not been cleared or approved by the Foodand Drug Administration.PATIENT WAS FASTINGPERFORMED BY: REVENUE.com[address] [id number] BY: iChange70 [facility] [id number] Platelets (Bld) [#/Vol] 419 {x10E3/uL} Normal 150-450 [facility] Work Phone: Comment on above: Test(s) 561807-VST-F ; 126905-HSP-R; 841215-WAR-D; 112522-Hmafeactkiaik; 509009-Odnvcywyemb, Total; 104972-DWJ-G (Total);920646-Uuueg LDL-P; 780558-ZJT Size; 643608-OP-GN Scorewas developed and its performance characteristics determinedby [employer]. It has not been cleared or approved by the Foodand Drug Administration.PATIENT WAS FASTINGPERFORMED BY: [employer] [address] [id number] BY: Landpointlin6370 [facility] [id number] Platelets (Bld) [#/Vol] 419 10*3/uL Normal 150-450 [facility]; [facility] Work Phone: Comment on above: Test(s) 711715-POY-Y ; 303818-DZB-P; 980058-HHP-K; 800829-Ndhsqsjwsakzv; 541835-Qepbqjfglya, Total; 712161-OUV-W (Total);325047-Uitol LDL-P; 587405-SGH Size; 946212-MK-IR Scorewas developed and its performance characteristics determinedby [employer]. It has not been cleared or approved by the Foodand Drug Administration.PATIENT WAS FASTINGPERFORMED BY: [employer] [address] [id number] BY: [employer] Sltksm0117 [facility] [id number] RBC (Bld) [#/Vol] 4.18 {x10E6/uL} Normal 3.77-5.28 [facility] Internal Medicine Work Phone: Comment on above: Test(s) 522181-SHE-D ; 625782-JBG-E; 066921-SPK-P; 626690-Qibvnzxftsiia; 703146-Yxynbcjhtwv, Total; 002657-UNZ-S (Total);349700-Qbnqu LDL-P; 551648-SKL Size; 841781-SX-QJ Scorewas developed and its performance characteristics determinedby [employer]. It has not been cleared or approved by the Foodand Drug Administration.PATIENT WAS FASTINGPERFORMED BY: [employer] [address] [id number] BY: [employer] Yxsuhm6055 [facility] [id number] RBC (Bld) [#/Vol] 4.18 10*6/uL Normal 3.77-5.28 [facility] Internal [facility]; [facility] Work Phone: Comment on above: Test(s) 921713-KDB-L ; 463856-GOM-S; 005361-ODD-O; 948783-Gflrluefakytk; 261326-Fpvrtnqixso, Total; 093010-WQA-S (Total);031022-Bjyyx LDL-P; 735334-EAO Size; 511119-LR-NA Scorewas developed and its performance characteristics determinedby [employer]. It has not been cleared or approved by the Foodand Drug Administration.PATIENT WAS FASTINGPERFORMED BY: RE[employer].com[address] [id number] BY: [employer] Uoyami8879 [facility] [id number] WBC (Bld) [#/Vol] 8.1 {x10E3/uL} Normal 3.4-10.8 [facility] Work Phone: Comment on above: Test(s) 848473-CTF-F ; 083469-UUO-L; 786879-QGB-G; 271929-Qrpyawekktqoe; 885034-Rquzjxafcjw, Total; 056815-RYD-C (Total);661569-Nltzi LDL-P; 639236-DDE Size; 981003-SB-RU Scorewas developed and its performance characteristics determinedby [employer]. It has not been cleared or approved by the Foodand Drug Administration.PATIENT WAS FASTINGPERFORMED BY: REVENUE.com[address] [id number] BY: Pinocular6370 [facility] [id number] WBC (Bld) [#/Vol] 8.1 10*3/uL Normal 3.4-10.8 [facility] Internal Medicine; [facility] Work Phone: Comment on above: Test(s) 449569-MNT-W ; 549458-GHT-H; 591964-OWT-J; 700305-Ppsogiffnbtan; 572350-Oxpixcislqq, Total; 361060-ZKX-J (Total);732537-Ekofu LDL-P; 646828-LBA Size; 533648-XB-HJ Scorewas developed and its performance characteristics determinedby [employer]. It has not been cleared or approved by the Foodand Drug Administration.PATIENT WAS FASTINGPERFORMED BY: [employer] LabCAS Medical Systemsrp Kdwqborxjt3468 [facility] [id number] BY: [employer] Ytwvce2696 [facility] [id number] METABOLIC PANEL, COMPREHENSI VE (95314)Ordered By: Cook Syrup Maker on 01-03-2020 Albumin [Mass/Vol] 3.8 g/dL Normal 3.8-4.8 [facility] Internal Medicine Work Phone: Comment on above: Test(s) 992205-YAW-R ; 100226-OEK-W; 184872-YWI-P; 001606-Ubmtborltmoeo; 416569-Tmtgoxrmovb, Total; 191351-FYH-F (Total);516118-Sbbis LDL-P; 203365-ZMB Size; 565182-PV-LH Scorewas developed and its performance characteristics determinedby [employer]. It has not been cleared or approved by the Foodand Drug Administration.PATIENT WAS FASTINGPERFORMED BY: [employer] [facility] [id number] BY: iChange70 3seventyUNC Health Lenoir [id number] Albumin/Globulin [Mass ratio] 1.4 {ratio} Normal 1.2-2.2 [facility] Internal Medicine Work Phone: Comment on above: Test(s) 874391-EJJ-V ; 792543-TNP-A; 198378-LNK-V; 883371-Yayuqrdsytabk; 467631-Qkeoojapwtc, Total; 970181-RAZ-J (Total);679752-Xemvj LDL-P; 962328-ZOH Size; 539045-OK-GF Scorewas developed and its performance characteristics determinedby [employer]. It has not been cleared or approved by the Foodand Drug Administration.PATIENT WAS FASTINGPERFORMED BY: [employer] [place] [address] [id number] BY: Pinocular6370 [facility] [id number] ALP [Catalytic activity/Vol] 85 [iU]/L Normal 39-117 [facility] Work Phone: Comment on above: Test(s) 633656-NSU-Q ; 396823-TIQ-X; 207159-XQD-I; 860574-Onyzlxuylwccv; 426063-Zqcbvvgqnka, Total; 449856-XKC-Z (Total);710002-Hlwms LDL-P; 652687-NJW Size; 478724-NN-PG Scorewas developed and its performance characteristics determinedby [employer]. It has not been cleared or approved by the Foodand Drug Administration.PATIENT WAS FASTINGPERFORMED BY: [employer] [id number] BY: [employer] Tele[employer] IncHampton Behavioral Health CenterRwnkoa9329 [facility] [id number] ALP [Catalytic activity/Vol] 85 U/L Normal 39-117 [facility]; [facility] Work Phone: Comment on above: Test(s) 923300-IFU-D ; 612335-MNN-L; 873226-BBK-S; 886467-Tnysylzcqrdgd; 677542-Jvrwjfeigdw, Total; 461189-UJY-F (Total);887650-Mvszr LDL-P; 345553-WRG Size; 495752-IK-FN Scorewas developed and its performance characteristics determinedby [employer]. It has not been cleared or approved by the Foodand Drug Administration.PATIENT WAS FASTINGPERFORMED BY: [employer] [id number] BY: [employer] Eveegg8827 [facility] [id number] ALT [Catalytic activity/Vol] 11 [iU]/L Normal 0-32 [facility] Internal Medicine Work Phone: Comment on above: Test(s) 227288-OBC-E ; 034415-GSZ-J; 132517-MEA-E; 935432-Dgosnjgehdlqt; 932822-Pxmqkleskyz, Total; 702881-GRD-X (Total);879149-Gunra LDL-P; 013215-ZVU Size; 745979-FM-KC Scorewas developed and its performance characteristics determinedby [employer]. It has not been cleared or approved by the Foodand Drug Administration.PATIENT WAS FASTINGPERFORMED BY: [employer] [id number] BY: [employer] Tele[employer] IncHampton Behavioral Health CenterHlgedk9852 [facility] [id number] ALT [Catalytic activity/Vol] 11 U/L Normal 0-32 [facility]; [facility] Work Phone: Comment on above: Test(s) 055714-UEO-Y ; 454092-FYI-U; 529160-ERU-O; 915163-Lgbgrmwicaosb; 818960-Ursnjhrubce, Total; 108887-SFY-S (Total);152426-Zewuw LDL-P; 332770-BSR Size; 294455-RQ-IS Scorewas developed and its performance characteristics determinedby [employer]. It has not been cleared or approved by the Foodand Drug Administration.PATIENT WAS FASTINGPERFORMED BY: [employer] [address] [id number] BY: iChange70 [facility] [id number] AST [Catalytic activity/Vol] 17 [iU]/L Normal 0-40 [facility] Internal Medicine Work Phone: Comment on above: Test(s) 536136-AGH-I ; 672031-HBB-C; 281434-BEY-G; 842792-Irgwpltjdhiay; 313112-Lqxucqynyjw, Total; 933407-IUW-Q (Total);700586-Dwena LDL-P; 446508-XIB Size; 980321-CJ-PW Scorewas developed and its performance characteristics determinedby [employer]. It has not been cleared or approved by the Foodand Drug Administration.PATIENT WAS FASTINGPERFORMED BY: [employer] [address] [id number] BY: [employer] Igarfx3848 [facility] [id number] AST [Catalytic activity/Vol] 17 U/L Normal 0-40 [facility]; [facility] Work Phone: Comment on above: Test(s) 927936-CJH-S ; 873256-QPI-A; 975511-TEU-A; 480199-Cvxojcqoxxiud; 800370-Dofbkilnxug, Total; 595222-ECX-R (Total);156880-Xzhnu LDL-P; 176083-PTP Size; 166607-CA-RO Scorewas developed and its performance characteristics determinedby [employer]. It has not been cleared or approved by the Foodand Drug Administration.PATIENT WAS FASTINGPERFORMED BY: RE[employer]com[address] [id number] BY: [employer] Rkczvu3479 [facility] [id number] Bilirubin [Mass/Vol] 0.3 mg/dL Normal 0.0-1.2 [facility] Internal Medicine Work Phone: Comment on above: Test(s) 913455-KBX-E ; 664845-LEX-W; 545277-TBP-P; 025000-Ykzrwnldholcy; 512216-Dqaqmxtrnsz, Total; 524969-PNT-G (Total);078818-Vtdog LDL-P; 444278-JGR Size; 196660-KC-HO Scorewas developed and its performance characteristics determinedby [employer]. It has not been cleared or approved by the Foodand Drug Administration.PATIENT WAS FASTINGPERFORMED BY: REVENUE[employer]com[address] [id number] BY: Pinocular6370 [facility] [id number] Calcium [Mass/Vol] 10.0 mg/dL Normal 8.7-10.3 [facility] Internal Medicine Work Phone: Comment on above: Test(s) 904526-GVN-O ; 395181-BQW-N; 802614-CZI-F; 672400-Osuszbchrhdif; 511492-Tbbzuufokir, Total; 119619-VMQ-J (Total);222735-Pujtr LDL-P; 638194-IBE Size; 619014-NC-PM Scorewas developed and its performance characteristics determinedby [employer]. It has not been cleared or approved by the Foodand Drug Administration.PATIENT WAS FASTINGPERFORMED BY: [employer] [address] [id number] BY: [facility] Skhxcw7419 [facility] [id number] Chloride [Moles/Vol] 104 mmol/L Normal 96-106 [facility] Internal Medicine Work Phone: Comment on above: Test(s) 228211-JCM-Z ; 100847-PSN-V; 406031-FAL-R; 256062-Vxatvtxetrwai; 715648-Qnygxurmkzh, Total; 901494-GZA-T (Total);824895-Klebb LDL-P; 991747-TGZ Size; 988008-KY-MR Scorewas developed and its performance characteristics determinedby [employer]. It has not been cleared or approved by the Foodand Drug Administration.PATIENT WAS FASTINGPERFORMED BY: [employer] [address] [id number] BY: iChange70 [facility] [id number] CO2 [Moles/Vol] 26 mmol/L Normal 20-29 [facility] Internal Medicine Work Phone: Comment on above: Test(s) 436698-MEO-B ; 032960-HKK-V; 541825-MMZ-C; 103791-Tfovzlfpwmhzl; 600932-Iysfjfjwrwh, Total; 594543-FGG-I (Total);191300-Hbfeo LDL-P; 851856-FEH Size; 542197-ZC-QU Scorewas developed and its performance characteristics determinedby [employer]. It has not been cleared or approved by the Foodand Drug Administration.PATIENT WAS FASTINGPERFORMED BY: [employer] [address] [id number] BY: Pinocular6370 [facility] [id number] Creatinine [Mass/Vol] 0.73 mg/dL Normal 0.57-1.00 [facility] Internal Medicine Work Phone: Comment on above: Test(s) 150691-OGV-Z ; 316018-OCG-K; 545529-IYE-W; 089462-Jingtspwlmjbz; 025737-Gfnfdsmpnzk, Total; 633889-DLT-Q (Total);837583-Uzoku LDL-P; 372913-NLU Size; 016956-ID-RN Scorewas developed and its performance characteristics determinedby [employer]. It has not been cleared or approved by the Foodand Drug Administration.PATIENT WAS FASTINGPERFORMED BY: [employer] [address] [id number] BY: iChange70 [facility] [id number] GFR/1.73 sq M predicted among blacks CKD-EPI (S/P/Bld) [Vol rate/Area] 99 mL/min/1.73 Normal [facility] Work Phone: Comment on above: Test(s) 657806-OPS-S ; 192966-ISQ-H; 309511-MEF-B; 758662-Tqxefgrpohfzr; 764779-Wknvflwxdub, Total; 119969-KJF-F (Total);508345-Vztlr LDL-P; 889301-DMI Size; 642943-NU-BI Scorewas developed and its performance characteristics determinedby [employer]. It has not been cleared or approved by the Foodand Drug Administration.PATIENT WAS FASTINGPERFORMED BY: [employer] [address] [id number] BY: iChange70 [facility] [id number] GFR/1.73 sq M predicted among non-blacks CKD-EPI (S/P/Bld) [Vol rate/Area] 86 mL/min/1.73 Normal [facility] Work Phone: Comment on above: Test(s) 050224-WWS-G ; 000203-ARP-C; 650700-DSC-R; 729630-Gqzzzttqmdofs; 838298-Hfgrlmdofhr, Total; 450105-CSM-I (Total);957654-Apbrj LDL-P; 008022-SHO Size; 670727-XX-QO Scorewas developed and its performance characteristics determinedby [employer]. It has not been cleared or approved by the Foodand Drug Administration.PATIENT WAS FASTINGPERFORMED BY: [employer] [address] [id number] BY: Pinocular6370 [facility] [id number] Globulin (S) [Mass/Vol] 2.7 g/dL Normal 1.5-4.5 [facility] Internal Medicine Work Phone: Comment on above: Test(s) 789942-TJU-N ; 024423-EWB-Z; 004709-YOZ-M; 144551-Xqktqusrztlje; 993534-Nqrruprrzvd, Total; 687340-NQJ-S (Total);261012-Dqnfl LDL-P; 641770-UOO Size; 367334-JU-BY Scorewas developed and its performance characteristics determinedby [employer]. It has not been cleared or approved by the Foodand Drug Administration.PATIENT WAS FASTINGPERFORMED BY: REVENUE.com[address] [id number] BY: iChange70 [facility] [id number] Glucose [Mass/Vol] 91 mg/dL Normal 65-99 [facility] Internal Medicine Work Phone: Comment on above: Test(s) 603957-VWD-N ; 323996-CJL-V; 227891-FCI-V; 822055-Ymrcibiwwgytg; 699899-Ruoinmaugfj, Total; 230583-ONA-U (Total);802111-Fzlbe LDL-P; 191432-PQN Size; 250099-LV-DJ Scorewas developed and its performance characteristics determinedby [employer]. It has not been cleared or approved by the Foodand Drug Administration.PATIENT WAS FASTINGPERFORMED BY: [employer] [address] [id number] BY: Pinocular6370 [facility] [id number] Potassium [Moles/Vol] 5.4 mmol/L Abnormal 3.5-5.2 [facility] Internal Medicine Work Phone: Comment on above: Test(s) 463683-IAI-F ; 377022-YPK-P; 209783-OOZ-S; 013188-Ahqcdwfkdsgzy; 547338-Fcpyekitdet, Total; 697856-CYJ-C (Total);741813-Lefvm LDL-P; 415775-TPR Size; 931180-RO-NJ Scorewas developed and its performance characteristics determinedby [employer]. It has not been cleared or approved by the Foodand Drug Administration.PATIENT WAS FASTINGPERFORMED BY: [employer] [id number] BY: [employer] Virtqk1835 [facility] [id number] Protein [Mass/Vol] 6.5 g/dL Normal 6.0-8.5 [facility] Internal Medicine Work Phone: Comment on above: Test(s) 099372-KTF-U ; 639610-NQF-T; 834463-MAZ-K; 284527-Qsvywspvmmevk; 645216-Ikxnqucsezl, Total; 134062-KLR-U (Total);591954-Wnicm LDL-P; 104921-UMX Size; 390811-DE-IJ Scorewas developed and its performance characteristics determinedby [employer]. It has not been cleared or approved by the Foodand Drug Administration.PATIENT WAS FASTINGPERFORMED BY: [employer] [address] [id number] BY: [employer] IncPresbyterian HospitalNtbfmk7320 [facility] [id number] Sodium [Moles/Vol] 143 mmol/L Normal 134-144 [facility] Internal Medicine Work Phone: Comment on above: Test(s) 579390-CTZ-U ; 820433-HKE-Z; 155705-GQW-V; 635901-Pbymapecgyyqw; 583336-Yvzctnsvaqk, Total; 859225-FXS-E (Total);694863-Oqvig LDL-P; 653945-ABY Size; 488891-TY-TI Scorewas developed and its performance characteristics determinedby [employer]. It has not been cleared or approved by the Foodand Drug Administration.PATIENT WAS FASTINGPERFORMED BY: [employer] [id number] BY: [employer] IncPresbyterian HospitalCwcahu0608 [facility] [id number] Urea nitrogen [Mass/Vol] 8 mg/dL Normal 8-27 [facility] Internal Medicine Work Phone: Comment on above: Test(s) 444691-IZV-C ; 835083-COP-E; 117340-FGY-F; 511874-Tkrdttsapbjoc; 631575-Nfjcunxtehc, Total; 373289-ZLD-L (Total);539736-Ujccd LDL-P; 176550-EWL Size; 188218-CA-OC Scorewas developed and its performance characteristics determinedby [employer]. It has not been cleared or approved by the Foodand Drug Administration.PATIENT WAS FASTINGPERFORMED BY: [employer] [address] [id number] BY: [employer] Wougmh6138 [facility] [id number] Urea nitrogen/Creatinine [Mass ratio] 11 mg/mg Abnormal - [facility] Work Phone: Comment on above: Test(s) 624409-GWJ-K ; 366242-EUP-X; 186624-KZQ-Z; 173052-Ptldtojfknzty; 881174-Gdllbubpxtp, Total; 115756-YWF-I (Total);443536-Sudfo LDL-P; 083056-NRO Size; 453240-AI-YV Scorewas developed and its performance characteristics determinedby [employer]. It has not been cleared or approved by the Foodand Drug Administration.PATIENT WAS FASTINGPERFORMED BY: [employer] [address] [id number] BY: [employer] Ocmhtr7847 [facility] [id number] NMR Profile (76067)Ordered B y: Cook Syrup Maker on 01-03-2020 Cholesterol [Mass/Vol] 130 mg/dL Normal 100-199 [facility] Work Phone: Comment on above: Test(s) 462271-IIK-B ; 981396-SZA-Q; 442663-NXU-J; 294485-Hlsaybvsirmuj; 418325-Nrqxgeoyhls, Total; 070339-NQP-L (Total);601054-Mvlkm LDL-P; 733533-RDC Size; 159243-RM-QI Scorewas developed and its performance characteristics determinedby [employer]. It has not been cleared or approved by the Foodand Drug Administration.PATIENT WAS FASTINGPERFORMED BY: [employer] [address] [id number] BY: [facility]6370 [facility] [id number] Lipoprotein.alpha [Moles/Vol] 42.3 umol/L Normal [facility] Work Phone: Comment on above: Test(s) 257599-YAL-A ; 765563-IBT-Z; 542048-UMD-S; 879662-Zdhjzxdwnshsp; 991105-Msqxvltulym, Total; 847397-JGO-K (Total);048634-Vxoxi LDL-P; 221382-DXW Size; 857439-WN-JP Scorewas developed and its performance characteristics determined [employer]. It has not been cleared or approved by the Foodand Drug Administration.PATIENT WAS FASTINGPERFORMED BY: [employer] [address] [id number] BY: [employer] Usgkkx0125 [facility] [id number] Lipoprotein.beta.sub particle [Entitic length] 20.1 nm Abnormal [facility] Work Phone: Comment on above: INTERPRETATIVE INFORMATION PARTICLE CONCENTRATION AND SIZE <--Lower CVD Risk Higher CVD Risk--> LDL AND HDL PARTICLES Percentile in Reference Population HDL-P (total) High 75th 50th 25th Low >34.9 34.9 30.5 26.7 <26.7 . Small LDL-P Low 25th 50th 75th High <117 117 527 839 >839 . LDL Size <-Large (Pattern A)-> <-Small (Pattern B)-> 23.0 20.6 20.5 19.0 Small LDL-P and LDL Size are associated with CVD risk, but not afterLDL-P is taken into account. Test(s) 569944-EGH-H ; 729040-KZO-Z; 926800-PHW-U; 469962-Zuffaidwmnzcu; 983946-Inriwqctvqy, Total; 468509-EBF-M (Total);256606-Wfgis LDL-P; 707734-UUH Size; 959799-QZ-EB Scorewas developed and its performance characteristics determinedby [employer]. It has not been cleared or approved by the Foodand Drug Administration.PATIENT WAS FASTINGPERFORMED BY: [employer] [address] [id number] BY: ESC CompanyResearch Psychiatric Center [id number] Lipoprotein.beta.sub particle [Moles/Vol] 649 nmol/L Normal [facility] Internal Medicine Work Phone: Comment on above: Low < 1000 Moderate 1000 - 1299 Borderline-High 1300 - 1599 High 1600 - 2000 Very High > 2000 Test(s) 511065-HLY-H ; 918735-DUJ-B; 674214-LXS-C; 581196-Cqmbniruukpnd; 612155-Ykejsndctac, Total; 693826-XUH-J (Total);699473-Ntysk LDL-P; 566696-UPK Size; 852712-XP-TH Scorewas developed and its performance characteristics determinedby [employer]. It has not been cleared or approved by the Foodand Drug Administration.PATIENT WAS FASTINGPERFORMED BY: [employer] [address] [id number] BY: iChange70 [facility] [id number] Lipoprotein.beta.sub particle.small [Moles/Vol] 496 nmol/L Normal [facility] Internal Medicine Work Phone: Comment on above: Test(s) 875446-UYP-B ; 301655-JTJ-S; 001237-EJP-N; 966589-Evnoarsvgswqz; 626548-Hjfptxfupxd, Total; 582613-FVJ-S (Total);078389-Mrxeb LDL-P; 624578-MPW Size; 237298-JE-NU Scorewas developed and its performance characteristics determinedby [employer]. It has not been cleared or approved by the Foodand Drug Administration.PATIENT WAS FASTINGPERFORMED BY: [employer] [address] [id number] BY: [employer] Telemetrics IncHampton Behavioral Health CenterCffebt3318 [facility] [id number] Triglyceride [Mass/Vol] 130 mg/dL Normal 0-149 [facility] Work Phone: Comment on above: Test(s) 677351-HFK-R ; 677830-TMM-T; 109222-AHF-L; 008192-Dkjerghfsyuqr; 015836-Vbdigygocla, Total; 481023-IFG-V (Total);104093-Nfmoo LDL-P; 933084-DQP Size; 425521-YU-HQ Scorewas developed and its performance characteristics determinedby [employer]. It has not been cleared or approved by the Foodand Drug Administration.PATIENT WAS FASTINGPERFORMED BY: [employer] [address] [id number] BY: [employer] Telemetrics IncHampton Behavioral Health CenterUdfief0385 [facility] [id number] NMR Profile (20849) 48 mg/dL Normal 0-99 [facility] Internal Medicine Work Phone: Comment on above: . Optimal < 100 Abov e optimal 100 - 129 Borderline 130 - 159 High 160 - 189 Very high > 189 .LDL-C is inaccurate if patient is non-fasting. Test(s) 275596-ZOI-T ; 196190-LVC-E; 515103-AZR-H; 146378-Squwumswlzxys; 777237-Luvajavchxd, Total; 658234-DNR-K (Total);957872-Eqfcx LDL-P; 230800-VLF Size; 465574-CZ-WW Scorewas developed and its performance characteristics determinedby [employer]. It has not been cleared or approved by the Foodand Drug Administration.PATIENT WAS FASTINGPERFORMED BY: REVENUE.com[address] [id number] BY: Pinocular6370 [facility] [id number] NMR Profile (57478) 56 mg/dL Normal [facility] Internal Medicine Work Phone: Comment on above: Test(s) 116692-DDG-O ; 143249-CDM-F; 409333-SFR-R; 928481-Kikkytimntkjr; 630813-Kstoevejjwx, Total; 122633-HQX-S (Total);498859-Ndayc LDL-P; 178767-IVR Size; 801743-DQ-XJ Scorewas developed and its performance characteristics determinedby [employer]. It has not been cleared or approved by the Foodand Drug Administration.PATIENT WAS FASTINGPERFORMED BY: REVENUE.com[address] [id number] BY: iChange70 [facility] [id number] TSH (59738)Ordered By: SQMOS Fishing Vessel Mate on 01-03-2020 TSH Qn 1.200 {uIU/mL} Normal 0.450-4.50 0 [facility] Internal Medicine Work Phone: Comment on above: Test(s) 427883-PRJ-K ; 526454-DRP-F; 245585-UBB-H; 417055-Fxcotzqajaqwn; 791335-Zgerxexbcuk, Total; 005042-GDL-F (Total);933678-Anmol LDL-P; 755461-ZPQ Size; 218996-CW-XD Scorewas developed and its performance characteristics determinedby [employer]. It has not been cleared or approved by the Foodand Drug Administration.PATIENT WAS FASTINGPERFORMED BY: [employer] [address] [id number] BY: [employer] Fjgiex0447 [facility] [id number] T3, FREE (TRIDOTHYRONINE) (8 8096)Ordered By: Cook Syrup Maker on 05-10-2019 Free T3 [Mass/Vol] 2.9 pg/mL Normal 2.0-4.4 [facility] Internal Medicine Work Phone: Comment on above: PATIENT NOT FASTINGP ERFORMED BY: [facility] Ojehjy3119 Tim Roadblin [place] [id number] T4, FREE (THYROXINE) (69359) Ordered By: Cook Syrup Maker on 05-10-2019 Free T4 [Mass/Vol] 1.44 ng/dL Normal 0.82-1.77 [facility] Internal Medicine Work Phone: Comment on above: PATIENT NOT FASTINGP ERFORMED BY: [facility] Stnyyr6073 Tim RoadDublin [place] [id number] TSH (61210)Ordered By: Darell m Fishing Vessel Mate on 05-10-2019 TSH Qn 1.150 {uIU/mL} Normal 0.450-4.50 0 [facility] Internal Medicine Work Phone: Comment on above: PATIENT NOT FASTINGP ERFORMED BY: [facility] Uzxxya8839 Tim RoadThe Poshpackerin [place] [id number] CALCIFEDIOL (28746)Ordered B y: Cook Syrup Maker on 12-29-2018 25-Hydroxyvitamin D2+25-Hydroxyvitamin D3 mass conc 55.6 ng/mL Normal 30.0-100.0 [facility] Internal Medicine Work Phone: Comment on above: Vitamin D deficiency has been defined by the [place] ofMedicine and an Endocrine Society practice guideline as alevel of serum 25-OH vitamin D less than 20 ng/mL (1,2).The Endocrine Society went on to further define vitamin Dinsufficiency as a level between 21 and 29 ng/mL (2).1. IOM ([place] of Medicine). 2010. Dietary reference intakes for calcium and D. [place]: The National Academies Press.2. Latanya MF, Victorino [place], Alysia HENDRICKSON, et al. Evaluation, treatment, and prevention of vitamin D deficiency: an Endocrine Society clinical practice guideline. JCEM. 2010; 96(7):1911-30. PATIENT WAS FASTINGP ERFORMED BY: [facility]lansSsm Health Care1447 [facility] [id number] BY: Applied Telemetrics IncHampton Behavioral Health CenterOkagct0621 [facility] [id number] CBC W/AUTO DIFF WBC (97243)O rdered By: Cook Syrup Maker on 12-29-2018 Basophils #/vol (Bld) 0.0 {x10E3/uL} Normal 0.0-0.2 [facility] Work Phone: Comment on above: PATIENT WAS FASTINGP ERFORMED BY: [address] [id number] BY: [place] [id number] [facility] [id number] Basophils (Bld) [#/Vol] 0.0 10*3/uL Normal 0.0-0.2 [facility]; [facility] Work Phone: Comment on above: PATIENT WAS FASTINGP ERFORMED BY: [address] [id number] BY: [place] 8425470 [facility] [id number] Basophils/100 WBC (Bld) 1 % Normal [facility] Work Phone: Comment on above: PATIENT WAS FASTINGP ERFORMED BY: [address] [id number] BY: [place] [id number] [facility] [id number] Eosinophils #/vol (Bld) 0.3 {x10E3/uL} Normal 0.0-0.4 [facility] Work Phone: Comment on above: PATIENT WAS FASTINGP ERFORMED BY: [address] [id number] BY: [place] 8425470 [facility] [id number] Eosinophils (Bld) [#/Vol] 0.3 10*3/uL Normal 0.0-0.4 [facility]; [facility] Work Phone: Comment on above: PATIENT WAS FASTINGP ERFORMED BY: [address] [id number] BY: BENITO [facility] Doihpj7001 Tim RoadDublin [place] [id number] Eosinophils/100 WBC (Bld) 4 % Normal [facility] Work Phone: Comment on above: PATIENT WAS FASTINGP ERFORMED BY: LabCo[address] [id number] BY: BENITO [facility] Uoence0780 Tim RoadDublin [place] [id number] Erythrocyte distribution width Ratio (RBC) 12.4 % Normal 12.3-15.4 [facility] Work Phone: Comment on above: PATIENT WAS FASTINGP ERFORMED BY: Lab[address] [id number] BY: BENITO [facility] Ybzzqd7504 Tim RoadDublin [place] [id number] Hematocrit Volume Fraction (Bld) 40.1 % Normal 34.0-46.6 [facility] Work Phone: Comment on above: PATIENT WAS FASTINGP ERFORMED BY: [address] [id number] BY: BENITO [facility] Yghndj7088 Tim RoadCone Healthin [place] [id number] Hemoglobin mass conc (Bld) 13.4 g/dL Normal 11.1-15.9 [facility] Work Phone: Comment on above: PATIENT WAS FASTINGP ERFORMED BY: Lab[address] [id number] BY: BENITO [facility] Jqrxlo8154 Tim RoadDublin [place] [id number] Immature granulocytes #/vol (Bld) 0.0 {x10E3/uL} Normal 0.0-0.1 [facility] Work Phone: Comment on above: PATIENT WAS FASTINGP ERFORMED BY: [address] [id number] BY: [facility] Mbbstr5660 Tim RoadDublin [place] [id number] Immature granulocytes (Bld) [#/Vol] 0.0 10*3/uL Normal 0.0-0.1 [facility]; [facility] Work Phone: Comment on above: PATIENT WAS FASTINGP ERFORMED BY: Newlans[address] [id number] BY: [facility] Gyxqqz4490 Tim Roadblin [place] [id number] Immature granulocytes/100 WBC (Bld) 0 % Normal [facility] Work Phone: Comment on above: PATIENT WAS FASTINGP ERFORMED BY: Newlans[address] [id number] BY: [facility] Wimkqa5413 TimResearch Psychiatric Center [id number] Lymphocytes #/vol (Bld) 2.5 {x10E3/uL} Normal 0.7-3.1 [facility] Work Phone: Comment on above: PATIENT WAS FASTINGP ERFORMED BY: [employer] Inc[address] [id number] BY: LabCoPresbyterian HospitalUlzahq0879 Tim [facility] [id number] Lymphocytes (Bld) [#/Vol] 2.5 10*3/uL Normal 0.7-3.1 [facility]; [facility] Work Phone: Comment on above: PATIENT WAS FASTINGP ERFORMED BY: [employer] Inc[address] [id number] BY: LabSaint [facility] Tmxbiw3858 Tim [facility] [id number] Lymphocytes/100 WBC (Bld) 38 % Normal [facility] Work Phone: Comment on above: PATIENT WAS FASTINGP ERFORMED BY: Newlans[address] [id number] BY: [facility] Khdduv9716 Tim [facility] Centerin [place] [id number] MCH Entitic mass (RBC) 30.5 pg Normal 26.6-33.0 [facility] Work Phone: Comment on above: PATIENT WAS FASTINGP ERFORMED BY: Newlans[address] [id number] BY: LabCoHampton Behavioral Health CenterZymfxn9018 Tim [facility] [id number] MCHC mass conc (RBC) 33.4 g/dL Normal 31.5-35.7 Comp rust Internal Medicine Work Phone: Comment on above: PATIENT WAS FASTINGP ERFORMED BY: [employer] Inc[address] [id number] BY: LabNicholas Ville 6964270 [facility] [id number] MCV Entitic volume (RBC) 91 fL Normal 79-97 [facility] Work Phone: Comment on above: PATIENT WAS FASTINGP ERFORMED BY: [employer] Inc[address] [id number] BY: LabGarden City Hospital6370 [facility] [id number] Monocytes #/vol (Bld) 0.5 {x10E3/uL} Normal 0.1-0.9 [facility] Work Phone: Comment on above: PATIENT WAS FASTINGP ERFORMED BY: [employer] [id number] BY: LabNicholas [place] 6964270 [facility] [id number] Monocytes (Bld) [#/Vol] 0.5 10*3/uL Normal 0.1-0.9 [facility]; [facility] Work Phone: Comment on above: PATIENT WAS FASTINGP ERFORMED BY: Newlans[address] [id number] BY: [facility] Lqrwsv7175 Tim [facility] [id number] Monocytes/100 WBC (Bld) 8 % Normal [facility] Work Phone: Comment on above: PATIENT WAS FASTINGP ERFORMED BY: LabCo[address] [id number] BY: [facility] Bcnyur7160 Tim RoadDublin [place] [id number] Neutrophils #/vol (Bld) 3.2 {x10E3/uL} Normal 1.4-7.0 [facility] Work Phone: Comment on above: PATIENT WAS FASTINGP ERFORMED BY: [facility] [address] [id number] BY: CB [facility] Knuynj7132 Tim RoadDublin [place] [id number] Neutrophils (Bld) [#/Vol] 3.2 10*3/uL Normal 1.4-7.0 [facility]; [facility] Work Phone: Comment on above: PATIENT WAS FASTINGP ERFORMED BY: [facility] [address] [id number] BY: [facility] Kgrajb2490 Tim RoadDublin [place] [id number] Neutrophils/100 WBC (Bld) 49 % Normal [facility] Work Phone: Comment on above: PATIENT WAS FASTINGP ERFORMED BY: LabCo[address] [id number] BY: [facility] Yagbjy1511 Tim RoadDublin [place] [id number] Platelets #/vol (Bld) 323 {x10E3/uL} Normal 150-450 [facility] Work Phone: Comment on above: PATIENT WAS FASTINGP ERFORMED BY: [facility] [address] [id number] BY: [facility] Jfafoh8795 Tim RoadDublin [place] [id number] Platelets (Bld) [#/Vol] 323 10*3/uL Normal 150-450 [facility]; [facility] Work Phone: Comment on above: PATIENT WAS FASTINGP ERFORMED BY: [address] [id number] BY: LabCoHampton Behavioral Health CenterWpryag9244 Tim [facility] Centerin [place] [id number] RBC #/vol (Bld) 4.40 {x10E6/uL} Normal 3.77-5.28 Comp [facility] hospitalensive Internal Medicine Work Phone: Comment on above: PATIENT WAS FASTINGP ERFORMED BY: [address] [id number] BY: LabNicholas [place] 6964270 Tim RoadCone Healthin [place] [id number] RBC (Bld) [#/Vol] 4.40 10*6/uL Normal 3.77-5.28 Compr ensive Internal Medicine; [facility] Work Phone: Comment on above: PATIENT WAS FASTINGP ERFORMED BY: [address] [id number] BY: [place] [id number] [facility] [id number] WBC #/vol (Bld) 6.6 {x10E3/uL} Normal 3.4-10.8 Compr ensive Internal Medicine Work Phone: Comment on above: PATIENT WAS FASTINGP ERFORMED BY: [address] [id number] BY: LabGarden City Hospital6370 [facility] [id number] WBC (Bld) [#/Vol] 6.6 10*3/uL Normal 3.4-10.8 Compre [facility] Internal Medicine; [facility] Work Phone: Comment on above: PATIENT WAS FASTINGP ERFORMED BY: [address] [id number] BY: LabGarden City Hospital6370 [facility] [id number] LIPOPROTEIN, BLD, BY NMR (50 504)Ordered By: Cook Syrup Maker on 12-29-2018 Cholesterol mass conc 151 mg/dL Normal 100-199 [facility] Work Phone: Comment on above: PATIENT WAS FASTINGP ERFORMED BY: REVENUE.com[address] [id number] BY: [employer] Upkjmf0833 [facility] [id number] Lipoprotein.alpha molar conc 43.2 umol/L Normal [facility] Work Phone: Comment on above: PATIENT WAS FASTINGP ERFORMED BY: [employer] Tqrpxaoefn[address] [id number] BY: [employer] Doypwg1936 [facility] [id number] Lipoprotein.beta.sub particle Entitic length 19.8 nm Abnormal [facility] Work Phone: Comment on above: INTERPRETATIVE INFORMATION PARTICLE CONCENTRATION AND SIZE <--Lower CVD Risk Higher CVD Risk--> LDL AND HDL PARTICLES Percentile in Reference Population HDL-P (total) High 75th 50th 25th Low >34.9 34.9 30.5 26.7 <26.7 . Small LDL-P Low 25th 50th 75th High <117 117 527 839 >839 . LDL Size <-Large (Pattern A)-> <-Small (Pattern B)-> 23.0 20.6 20.5 19.0 Small LDL-P and LDL Size are associated with CVD risk, but not afterLDL-P is taken into account. .These assays were developed and their performance characteristicsdetermined by [employer]. These assays have not been cleared by [employer] Food and Drug Administration. The clinical utility of theselaboratory values have not been fully established. PATIENT WAS FASTINGP ERFORMED BY: [employer] Inc[address] [id number] BY: [employer] Ewsjnt2679 Tim [facility]Northern [facility] [id number] Lipoprotein.beta.sub particle molar conc 845 nmol/L Normal Comprehensiv e Internal Medicine Work Phone: Comment on above: Low < 1000 Moderate 1000 - 1299 Borderline-High 1300 - 1599 High 1600 - 2000 Very High > 2000 PATIENT WAS FASTINGP ERFORMED BY: [employer] Inc[address] [id number] BY: [employer] Telemetrics IncHampton Behavioral Health CenterGmcqvq8031 Tim [facility]verNorthern [facility] [id number] Lipoprotein.beta.sub particle.small molar conc 598 nmol/L Abnormal [facility] Work Phone: Comment on above: PATIENT WAS FASTINGP ERFORMED BY: [employer] Inc[address] [id number] BY: [employer] Telemetrics IncPenny Ville 7988270 Tim [facility]verNorthern [facility] [id number] Triglyceride mass conc 184 mg/dL Abnormal 0-149 [facility] Work Phone: Comment on above: PATIENT WAS FASTINGP ERFORMED BY: [employer] Inc[address] [id number] BY: NewlansNicholas V[place] 6964270 [facility] [id number] LIPOPROTEIN, BLD, BY NMR (16329) 63 mg/dL Normal 0-99 [facility] Work Phone: Comment on above: . Optimal < 100 Abov e optimal 100 - 129 Borderline 130 - 159 High 160 - 189 Very high > 189 .LDL-C is inaccurate if patient is non-fasting. PATIENT WAS FASTINGP ERFORMED BY: Newlans[address] [id number] BY: [facility]lansGarden City Hospital6370 Tim [facility]verNorthern [facility] [id number] LIPOPROTEIN, BLD, BY NMR (66307) 51 mg/dL Normal [facility] Work Phone: Comment on above: PATIENT WAS FASTINGP ERFORMED BY: [facility] [address] [id number] BY: BENITO [facility] Sgewzm3435 Tim RoadDublin [place] [id number] METABOLIC PANEL, COMPREHENSI VE (12112)Ordered By: Cook Syrup Maker on 12-29-2018 Albumin mass conc 4.5 g/dL Normal 3.6-4.8 Compreh ensive Internal Medicine Work Phone: Comment on above: PATIENT WAS FASTINGP ERFORMED BY: LabCo[address] [id number] BY: BENITO [facility] Licqdl0335 Tim RoadDuin [place] [id number] Albumin/Globulin mass ratio 2.3 {ratio} Abnormal 1.2-2.2 [facility] Work Phone: Comment on above: PATIENT WAS FASTINGP ERFORMED BY: [facility] [address] [id number] BY: BENITO [facility] Dgrwpo4336 Tim RoadDuin [place] [id number] ALP [Catalytic activity/Vol] 91 U/L Normal 39-117 [facility]; [facility] Work Phone: Comment on above: PATIENT WAS FASTINGP ERFORMED BY: LabCo[address] [id number] BY: [facility] Cyrakn4936 Tim RoadDublin [place] [id number] ALP enzyme act/vol 91 [iU]/L Normal 39-117 Compre [facility] Internal Medicine Work Phone: Comment on above: PATIENT WAS FASTINGP ERFORMED BY: [facility] [address] [id number] BY: CB [facility] Sgkjiy5949 Tim RoadDublin [place] [id number] ALT [Catalytic activity/Vol] 20 U/L Normal 0-32 [facility]; [facility] Work Phone: Comment on above: PATIENT WAS FASTINGP ERFORMED BY: LabCo[address] [id number] BY: BENITO [facility] Hwrfjw8623 Tim RoadDublin [place] [id number] ALT enzyme act/vol 20 [iU]/L Normal 0-32 [facility] Internal Medicine Work Phone: Comment on above: PATIENT WAS FASTINGP ERFORMED BY: [facility] [address] [id number] BY: BENITO [facility] Uobpng9330 Tim RoadDublin [place] [id number] AST [Catalytic activity/Vol] 24 U/L Normal 0-40 [facility]; [facility] Work Phone: Comment on above: PATIENT WAS FASTINGP ERFORMED BY: Lab[address] [id number] BY: BENITO [facility] Casqex2569 Tim RoadDublin [place] [id number] AST enzyme act/vol 24 [iU]/L Normal 0-40 [facility] Internal Medicine Work Phone: Comment on above: PATIENT WAS FASTINGP ERFORMED BY: Lab[address] [id number] BY: BENITO [facility] Svjqjm3357 Tim RoadDublin [place] [id number] Bilirubin mass conc 0.4 mg/dL Normal 0.0-1.2 Compr [facility] Internal Medicine Work Phone: Comment on above: PATIENT WAS FASTINGP ERFORMED BY: Lab[address] [id number] BY: [facility] Yogwsk6104 Tim RoadDublin [place] [id number] Calcium mass conc 9.8 mg/dL Normal 8.7-10.3 Compreh [facility] hospitalive Internal Medicine Work Phone: Comment on above: PATIENT WAS FASTINGP ERFORMED BY: Lab[address] [id number] BY: BENITO [facility] Pihliw5295 Tim RoadDublin [place] [id number] Chloride molar conc 106 mmol/L Normal 96-106 Compr ehensive Internal Medicine Work Phone: Comment on above: PATIENT WAS FASTINGP ERFORMED BY: LASHAUN [facility] [address] [id number] BY: BENITO [facility] Niewqb4209 Tim RoadDublin [place] [id number] CO2 molar conc 24 mmol/L Normal 20-29 Comprehens enmanuel Internal Medicine Work Phone: Comment on above: PATIENT WAS FASTINGP ERFORMED BY: [facility] [address] [id number] BY: BENITO [facility] Nklfzz6729 Tim RoadDublin [place] [id number] Creatinine mass conc 0.78 mg/dL Normal 0.57-1.00 Comp [facility] hospitalensive Internal Medicine Work Phone: Comment on above: PATIENT WAS FASTINGP ERFORMED BY: LabCo[address] [id number] BY: BENITO [facility] Hetaxp8280 Tim RoadCone Healthin [place] [id number] GFR/1.73 sq M predicted among blacks CKD-EPI vol rate/area (S/P/Bld) 92 mL/min/1.73 Normal Comprehensiv e Internal Medicine Work Phone: Comment on above: PATIENT WAS FASTINGP ERFORMED BY: [facility] [address] [id number] BY: BENITO [facility] Hcqmeu5935 Tim RoadDublin [place] [id number] GFR/1.73 sq M predicted among non-blacks CKD-EPI vol rate/area (S/P/Bld) 80 mL/min/1.73 Normal [facility] Work Phone: Comment on above: PATIENT WAS FASTINGP ERFORMED BY: [facility] [address] [id number] BY: [facility] Bzrkmo9737 Tim RoadDublin [place] [id number] Globulin mass conc (S) 2.0 g/dL Normal 1.5-4.5 [facility] Work Phone: Comment on above: PATIENT WAS FASTINGP ERFORMED BY: [address] [id number] BY: [facility] Pzfvjl6374 Tim RoadDublin [place] [id number] Glucose mass conc 89 mg/dL Normal 65-99 Compreh ensive Internal Medicine Work Phone: Comment on above: PATIENT WAS FASTINGP ERFORMED BY: [address] [id number] BY: LabG[facility] Hospital6370 Tim RoadDuin [place] [id number] Potassium molar conc 5.0 mmol/L Normal 3.5-5.2 Comp rehensive Internal Medicine Work Phone: Comment on above: PATIENT WAS FASTINGP ERFORMED BY: [address] [id number] BY: LabG[facility] Hospital6370 Tim [facility]in [place] [id number] Protein mass conc 6.5 g/dL Normal 6.0-8.5 Compreh ensive Internal Medicine Work Phone: Comment on above: PATIENT WAS FASTINGP ERFORMED BY: [address] [id number] BY: [facility]6370 Tim Roadblin [place] [id number] Sodium molar conc 144 mmol/L Normal 134-144 Compreh ensive Internal Medicine Work Phone: Comment on above: PATIENT WAS FASTINGP ERFORMED BY: Lab[address] [id number] BY: [facility] Hfkvqb1310 Tim RoadDublin [place] [id number] Urea nitrogen mass conc 11 mg/dL Normal 8-27 [facility] Work Phone: Comment on above: PATIENT WAS FASTINGP ERFORMED BY: [employer] [id number] BY: [facility] Fizxdb6918 [facility]in [place] [id number] Urea nitrogen/Creatinine mass ratio 14 mg/mg Normal 12-28 [facility] Work Phone: Comment on above: PATIENT WAS FASTINGP ERFORMED BY: [facility] [id number] BY: [facility] Qtesom3898 [facility] [id number] MICROALBUMINOrdered By: Syst em Fishing Vessel Mate on 12-29-2018 Albumin DL <= 20 mg/L mass conc (U) 3.1 ug/mL Normal [facility] Work Phone: Comment on above: PATIENT WAS FASTINGP ERFORMED BY: [employer] [id number] BY: [facility] Neqeit9328 [facility] [id number] Albumin/Creatinine mass ratio (U) 4.5 {mg/g_creat} Normal 0.0-30.0 [facility] Work Phone: Comment on above: Normal: 0.0 - 30.0 A lbuminuria: 31.0 - 300.0 Clinical albuminuria: >300.0 PATIENT WAS FASTINGP ERFORMED BY: [employer] [id number] BY: [facility] Tvvqfy6527 [facility] [id number] Creatinine mass conc (U) 68.3 mg/dL Normal [facility] Work Phone: Comment on above: PATIENT WAS FASTINGP ERFORMED BY: [employer] [id number] BY: [facility] Akkdqf4894 Tim RoadCone Healthin [place] [id number] T3, FREE (TRIDOTHYRONINE) (6 2460)Ordered By: Cook Syrup Maker on 12-29-2018 T3 free mass conc 3.4 pg/mL Normal 2.0-4.4 Compreh ensive Internal Medicine Work Phone: Comment on above: PATIENT WAS FASTINGP ERFORMED BY: [employer] [id number] BY: [employer] Lqpqqo8647 [facility] [id number] T4, FREE (THYROXINE) (09352) Ordered By: Cook Syrup Maker on 12-29-2018 T4 free mass conc 1.38 ng/dL Normal 0.82-1.77 Compreh ensive Internal Medicine Work Phone: Comment on above: PATIENT WAS FASTINGP ERFORMED BY: [employer] [id number] BY: [employer] Blhohn8284 [facility] [id number] TSH (09807)Ordered By: Syste m Fishing Vessel Mate on 12-29-2018 Thyrotropin Qn 0.947 {uIU/mL} Normal 0.450-4.50 0 [facility] Work Phone: Comment on above: PATIENT WAS FASTINGP ERFORMED BY: [employer] [id number] BY: [employer] IncHampton Behavioral Health CenterBspjfl5179 [facility] [id number] URINALYSIS, W/ MICRO (26323) Ordered By: Cook Syrup Maker on 12-29-2018 Appearance Nom (U) Clear Normal Compre hensive Internal Medicine Work Phone: Comment on above: PATIENT WAS FASTINGP ERFORMED BY: [employer] [id number] BY: Lab[place] [id number] [facility] [id number] Bilirubin Ql (U) Negative Normal Comprehe nsive Internal Medicine Work Phone: Comment on above: PATIENT WAS FASTINGP ERFORMED BY: [employer] [id number] BY: BENITO [facility] Zgljnp8053 Tim RoadDublin [place] [id number] Bilirubin Ql (U) Negative Normal Comprehe nsive Internal Medicine; [facility] Work Phone: Comment on above: PATIENT WAS FASTINGP ERFORMED BY: [address] [id number] BY: BENITO [facility] Hdwqpc2368 Tim RoadDublin [place] [id number] Color Nom (U) Yellow Normal Comprehensi ve Internal Medicine Work Phone: Comment on above: PATIENT WAS FASTINGP ERFORMED BY: Lab[address] [id number] BY: BENITO [facility] Evgurm6440 Tim RoadDublin [place] [id number] Glucose Ql (U) Negative Normal Comprehens enmanuel Internal Medicine Work Phone: Comment on above: PATIENT WAS FASTINGP ERFORMED BY: Lab[address] [id number] BY: BENITO [facility] Pgntcl9367 Tim RoadDublin [place] [id number] Glucose Ql (U) Negative Normal Comprehens enmanuel [facility]; [facility] Work Phone: Comment on above: PATIENT WAS FASTINGP ERFORMED BY: [address] [id number] BY: [facility] Pytvfs0893 Tim RoadDublin [place] [id number] Hemoglobin Ql (U) 1+ Abnormal Compreh ensive Internal Medicine Work Phone: Comment on above: PATIENT WAS FASTINGP ERFORMED BY: Lab[address] [id number] BY: BENITO [facility] Fblwkv2515 Tim RoadDublin [place] [id number] Ketones Ql (U) Negative Normal Comprehens enmanuel [facility] Work Phone: Comment on above: PATIENT WAS FASTINGP ERFORMED BY: Lab[address] [id number] BY: [facility] Mnwwdc8450 Tim RoadDublin [place] [id number] Ketones Ql (U) Negative Normal Comprehens enmanuel [facility]; [facility] Work Phone: Comment on above: PATIENT WAS FASTINGP ERFORMED BY: Lab[address] [id number] BY: [facility] Zjlmki8578 Tim RoadDublin [place] [id number] Leukocyte esterase Test strip Ql (U) Negative Normal [facility] Work Phone: Comment on above: PATIENT WAS FASTINGP ERFORMED BY: Lab[address] [id number] BY: [facility] Mwshib6561 Tim RoadDublin [place] [id number] Leukocyte esterase Test strip Ql (U) Negative Normal [facility]; [facility] Work Phone: Comment on above: PATIENT WAS FASTINGP ERFORMED BY: [address] [id number] BY: [facility] Watwpu9217 Tim RoadDublin [place] [id number] Microscopic observation LM Nom (Urine sed) See below: Normal [facility] Work Phone: Comment on above: Microscopic was gianna cated and was performed. PATIENT WAS FASTINGP ERFORMED BY: Lab[address] [id number] BY: [facility] Qkkyei3404 Tim RoadDublin [place] [id number] Nitrite Ql (U) Negative Normal Comprehens enmanuel [facility] Work Phone: Comment on above: PATIENT WAS FASTINGP ERFORMED BY: [address] [id number] BY: [facility] Tgpvep8527 Tim RoadDublin [place] [id number] Nitrite Ql (U) Negative Normal Comprehens enmanuel [facility]; [facility] Work Phone: Comment on above: PATIENT WAS FASTINGP ERFORMED BY: [address] [id number] BY: BENITO [facility] Hcenam7744 Tim RoadDublin [place] [id number] pH (U) 5.5 [pH] Normal 5.0-7.5 [facility] Work Phone: Comment on above: PATIENT WAS FASTINGP ERFORMED BY: [address] [id number] BY: BENITO [facility] Pochvn5166 Tim RoadDublin [place] [id number] Protein Ql (U) Negative Normal Comprehens enmanuel [facility] Work Phone: Comment on above: PATIENT WAS FASTINGP ERFORMED BY: [address] [id number] BY: [facility] Mqcoiv5048 Tim RoadDublin [place] [id number] Protein Ql (U) Negative Normal Comprehens enmanuel [facility]; [facility] Work Phone: Comment on above: PATIENT WAS FASTINGP ERFORMED BY: [address] [id number] BY: [facility] Flbfsy0415 Tim RoadCone Healthin [place] [id number] Specific gravity Relative Density (U) 1.013 1 Normal 1.005-1.03 0 [facility] Work Phone: Comment on above: PATIENT WAS FASTINGP ERFORMED BY: [address] [id number] BY: [facility] Orodyl6848 Tim RoadDublin [place] [id number] Urobilinogen (U) [Mass/Vol] 0.2 mg/dL Normal 0.2-1.0 [facility]; [facility] Work Phone: Comment on above: PATIENT WAS FASTINGP ERFORMED BY: [facility] [id number] BY: BENITO [facility] Fokujc6057 Tim RoadDublin [place] [id number] Urobilinogen Test strip mass conc (U) 0.2 mg/dL Normal 0.2-1.0 Comprehensiv e Internal Medicine Work Phone: Comment on above: PATIENT WAS FASTINGP ERFORMED BY: [facility]Co[address] [id number] BY: BENITO [facility] Avntpw6988 Tim RoadDublin [place] [id number] HEPATIC FUNCTION PANEL (8007 6)Ordered By: Cook Syrup Maker on 09-24-2018 Albumin [Mass/Vol] 4.3 g/dL Normal 3.6-4.8 [facility] Internal [facility] Work Phone: Comment on above: PATIENT WAS FASTINGP ERFORMED BY: [facility]Co[address] [id number] BY: BENITO [facility] Eetkcu7925 Tim RoadDublin [place] [id number] ALP [Catalytic activity/Vol] 121 [iU]/L Abnormal 39-117 [facility] Work Phone: Comment on above: PATIENT WAS FASTINGP ERFORMED BY: Lab[address] [id number] BY: [facility] Kgpntz3703 Tim RoadDublin [place] [id number] ALP [Catalytic activity/Vol] 121 U/L Abnormal 39-117 [facility]; [facility] Work Phone: Comment on above: PATIENT WAS FASTINGP ERFORMED BY: [facility] [address] [id number] BY: CB [facility] Ngeuqo7963 Tim RoadDublin [place] [id number] ALT [Catalytic activity/Vol] 33 [iU]/L Abnormal 0-32 [facility] Work Phone: Comment on above: PATIENT WAS FASTINGP ERFORMED BY: [facility] [id number] BY: BENITO [facility] Jevfvd3150 Tim RoadDublin [place] [id number] ALT [Catalytic activity/Vol] 33 U/L Abnormal 0-32 [facility]; [facility] Work Phone: Comment on above: PATIENT WAS FASTINGP ERFORMED BY: [facility] [address] [id number] BY: BENITO [facility] Lcpuob4699 Tim RoadDublin [place] [id number] AST [Catalytic activity/Vol] 31 [iU]/L Normal 0-40 [facility] Work Phone: Comment on above: PATIENT WAS FASTINGP ERFORMED BY: [facility] [id number] BY: BENITO [facility] Nsrkmr9164 Tim RoadDublin [place] [id number] AST [Catalytic activity/Vol] 31 U/L Normal 0-40 [facility]; [facility] Work Phone: Comment on above: PATIENT WAS FASTINGP ERFORMED BY: Lab[address] [id number] BY: BENITO [facility] Skrifz6066 Tim RoadDublin [place] [id number] Bilirubin [Mass/Vol] mg/dL Normal 0.0-1.2 Comp rehensive Internal Medicine Work Phone: Comment on above: PATIENT WAS FASTINGP ERFORMED BY: [facility]Co[address] [id number] BY: [facility] Ytnrgj6371 Tim RoadDublin [place] [id number] Bilirubin [Mass/Vol] mg/dL Normal 0.0-1.2 Comp rehensive Internal Medicine; [facility] Work Phone: Comment on above: PATIENT WAS FASTINGP ERFORMED BY: [facility] [id number] BY: [employer] Krdipl5754 Tim RoadDublin [place] [id number] Bilirubin.direct [Mass/Vol] 0.06 mg/dL Normal 0.00-0.40 [facility] Work Phone: Comment on above: PATIENT WAS FASTINGP ERFORMED BY: [employer] [id number] BY: NewlansThe Rehabilitation InstituteRhtwft7522 [facility] Centerin [place] [id number] Protein [Mass/Vol] 6.3 g/dL Normal 6.0-8.5 [facility] Internal Medicine Work Phone: Comment on above: PATIENT WAS FASTINGP ERFORMED BY: [employer] [id number] BY: [employer] Tele[employer] IncHampton Behavioral Health CenterYzfhux1145 [facility] [id number] NMR Profile (84124)Ordered B y: Cook Syrup Maker on 09-24-2018 Cholesterol [Mass/Vol] 197 mg/dL Normal 100-199 [facility] Work Phone: Comment on above: PATIENT WAS FASTINGP ERFORMED BY: [employer] [id number] BY: [employer] Tele[employer] IncHampton Behavioral Health CenterZodcsn5641 [facility] [id number] Lipoprotein.alpha [Moles/Vol] 38.9 umol/L Normal [facility] Work Phone: Comment on above: PATIENT WAS FASTINGP ERFORMED BY: [employer] [id number] BY: NewlansGarden City Hospital6370 [facility] Hospitalin [place] [id number] Lipoprotein.beta.sub particle [Entitic length] 20.5 nm Abnormal [facility] Work Phone: Comment on above: INTERPRETATIVE INFORMATION PARTICLE CONCENTRATION AND SIZE <--Lower CVD Risk Higher CVD Risk--> LDL AND HDL PARTICLES Percentile in Reference Population HDL-P (total) High 75th 50th 25th Low >34.9 34.9 30.5 26.7 <26.7 . Small LDL-P Low 25th 50th 75th High <117 117 527 839 >839 . LDL Size <-Large (Pattern A)-> <-Small (Pattern B)-> 23.0 20.6 20.5 19.0 Small LDL-P and LDL Size are associated with CVD risk, but not afterLDL-P is taken into account. .These assays were developed and their performance characteristicsdetermined by [employer]. These assays have not been cleared by [employer] Food and Drug Administration. The clinical utility of theselaboratory values have not been fully established. PATIENT WAS FASTINGP ERFORMED BY: REVENUE.comton1447 [facility] [id number] BY: [employer]70 [facility] [id number] Lipoprotein.beta.sub particle [Moles/Vol] 1462 nmol/L Abnormal Comprehensi Internal Medicine Work Phone: Comment on above: Low < 1000 Moderate 1000 - 1299 Borderline-High 1300 - 1599 High 1600 - 2000 Very High > 2000 PATIENT WAS FASTINGP ERFORMED BY: RE[employer]UE.com[address] [id number] BY: [employer]70 [facility] [id number] Lipoprotein.beta.sub particle.small [Moles/Vol] 705 nmol/L Abnormal [facility] Work Phone: Comment on above: PATIENT WAS FASTINGP ERFORMED BY: REVENUE.comton1447 [facility] [id number] BY: [facility] Vedrml2173 [facility] [id number] Triglyceride [Mass/Vol] 183 mg/dL Abnormal 0-149 [facility] Work Phone: Comment on above: PATIENT WAS FASTINGP ERFORMED BY: [employer] [id number] BY: BENITO [facility] Eqdsnz6086 [facility] [id number] NMR Profile (16030) 114 mg/dL Abnormal 0-99 [facility] Centerensive [facility] Work Phone: Comment on above: . Optimal < 100 Abov e optimal 100 - 129 Borderline 130 - 159 High 160 - 189 Very high > 189 .LDL-C is inaccurate if patient is non-fasting. PATIENT WAS FASTINGP ERFORMED BY: [employer] [id number] BY: [facility] Rgllov9515 [facility] [id number] NMR Profile (88073) 46 mg/dL Normal [facility] Internal Medicine Work Phone: Comment on above: PATIENT WAS FASTINGP ERFORMED BY: [employer] [id number] BY: LabCoHampton Behavioral Health CenterBoatsl5033 [facility] [id number] LIPOPROTEIN, BLD, BY NMR (27 904)on 07-15-2018 Cholesterol [Mass/Vol] 190 mg/dL Normal 100-199 [facility] Work Phone: Comment on above: this is full lipid p bernabe with NMR NOT just a lipoprotein a level; PATIENT WAS FASTINGPERFORMED BY: [employer] [id number] Cholesterol in HDL [Mass/Vol] 44 mg/dL Normal [facility] Work Phone: Comment on above: this is full lipid p bernabe with NMR NOT just a lipoprotein a level; PATIENT WAS FASTINGPERFORMED BY: [employer] [id number] Cholesterol in LDL [Mass/Vol] 110 mg/dL Abnormal 0-99 [facility] Work Phone: Comment on above: . Optimal < 100 Abov e optimal 100 - 129 Borderline 130 - 159 High 160 - 189 Very high > 189 .LDL-C is inaccurate if patient is non-fasting. this is full lipid p bernabe with NMR NOT just a lipoprotein a level; PATIENT WAS FASTINGPERFORMED BY: REVENUE.com[address] [id number] Lipoprotein.alpha [Moles/Vol] 36.5 umol/L Normal [facility] Work Phone: Comment on above: this is full lipid p bernabe with NMR NOT just a lipoprotein a level; PATIENT WAS FASTINGPERFORMED BY: REVENUE.com[address] [id number] Lipoprotein.beta.sub particle [Entitic length] 20.3 nm Abnormal [facility] Work Phone: Comment on above: INTERPRETATIVE INFORMATION PARTICLE CONCENTRATION AND SIZE <--Lower CVD Risk Higher CVD Risk--> LDL AND HDL PARTICLES Percentile in Reference Population HDL-P (total) High 75th 50th 25th Low >34.9 34.9 30.5 26.7 <26.7 . Small LDL-P Low 25th 50th 75th High <117 117 527 839 >839 . LDL Size <-Large (Pattern A)-> <-Small (Pattern B)-> 23.0 20.6 20.5 19.0 Small LDL-P and LDL Size are associated with CVD risk, but not afterLDL-P is taken into account. .These assays were developed and their performance characteristicsdetermined by [employer]. These assays have not been cleared by [employer] Food and Drug Administration. The clinical utility of theselaboratory values have not been fully established. this is full lipid p bernabe with NMR NOT just a lipoprotein a level; PATIENT WAS FASTINGPERFORMED BY: [employer] [id number] Lipoprotein.beta.sub particle [Moles/Vol] 1833 nmol/L Abnormal Comprehensi Internal Medicine Work Phone: Comment on above: Low < 1000 Moderate 1000 - 1299 Borderline-High 1300 - 1599 High 1600 - 2000 Very High > 2000 this is full lipid p bernabe with NMR NOT just a lipoprotein a level; PATIENT WAS FASTINGPERFORMED BY: [employer] [id number] Lipoprotein.beta.sub particle.small [Moles/Vol] 1093 nmol/L Abnormal [facility] Work Phone: Comment on above: this is full lipid p bernabe with NMR NOT just a lipoprotein a level; PATIENT WAS FASTINGPERFORMED BY: [employer] [id number] Triglyceride [Mass/Vol] 178 mg/dL Abnormal 0-149 [facility] Work Phone: Comment on above: this is full lipid p bernabe with NMR NOT just a lipoprotein a level; PATIENT WAS FASTINGPERFORMED BY: [employer] [id number] CBC W/Diff, Automatedon - Absolute Neut 3.1 {X10_3/uL} Normal 2.0-7.7 Compreh ensive Internal Medicine Work Phone: Comment on above: [facility] [address] [place], [place], [phone] Basophils/100 WBC (Bld) 0.6 % Normal 0-1 [facility] Work Phone: Comment on above: [facility] [address] [place], [place], [phone]) Basophils/100 WBC Auto (Bld) 0.6 % Normal 0-1 [facility] Work Phone: Eosinophils/100 WBC (Bld) 4.5 % Normal 0-5 [facility] Work Phone: Comment on above: [facility] [address] [place], [address] Eosinophils/100 WBC Auto (Bld) 4.5 % Normal 0-5 [facility] Work Phone: Erythrocyte distribution width (RBC) [Ratio] 12.1 % Normal 11.6-14.6 [facility] Work Phone: Comment on above: [place] [address] [place], [address] Erythrocyte distribution width Auto Ratio (RBC) 12.1 % Normal 11.6-14.6 [facility] Work Phone: Hematocrit (Bld) [Volume fraction] 42.1 % Normal 37-47 [facility] Work Phone: Comment on above: [place] [address] [place], [address] Hematocrit Auto Volume Fraction (Bld) 42.1 % Normal 37-47 [facility] Work Phone: Hemoglobin mass conc (Bld) 14.1 g/dL Normal 12.0-15.0 [facility] Work Phone: Comment on above: [place] [address] [place], [address] IM GRAN % 0.300 % Normal 0.0-0.9 [facility] Work Phone: Comment on above: IG% - Immature Granu locytes (promyelocytes, myelocytes andmetamyelocytes) > 1% indicates that a LEFT SHIFT is Present. [place] [address] [place], [address] Lymphocytes (Bld) [#/Vol] 2.17 {X10_3/ul} Normal 0.83-4.51 [facility] Work Phone: Comment on above: [facility] [address] [place], [address] Lymphocytes/100 WBC (Bld) 35.1 % Normal 19-41 [facility] Work Phone: Comment on above: [facility] [address] [place], [address] Lymphocytes/100 WBC Auto (Bld) 35.1 % Normal 19-41 [facility] Work Phone: MCH (RBC) [Entitic mass] 30.9 pg Normal 27.0-32.0 [facility] Work Phone: Comment on above: [facility] [address] [place], [address] MCH Auto Entitic mass (RBC) 30.9 pg Normal 27.0-32.0 [facility] Work Phone: MCHC (RBC) [Mass/Vol] 33.5 {g/gl} Normal 32-36 [facility] Work Phone: Comment on above: [facility] [address] [place], [address] MCHC Auto mass conc (RBC) 33.5 {g/gl} Normal 32-36 [facility] Work Phone: MCV (RBC) [Entitic vol] 92.3 fL Normal 81-99 [facility] Work Phone: Comment on above: [facility] [address] [place], [address] MCV Auto Entitic volume (RBC) 92.3 fL Normal 81-99 [facility] Work Phone: Monocytes/100 WBC (Bld) 9.9 % Normal 0-10 [facility] Work Phone: Comment on above: [facility] [address] [place], [address] Monocytes/100 WBC Auto (Bld) 9.9 % Normal 0-10 [facility] Work Phone: Neutrophils/100 WBC (Bld) 49.6 % Normal 47-70 [facility] Work Phone: Comment on above: [facility] [address] [place], [address] Neutrophils/100 WBC Auto (Bld) 49.6 % Normal 47-70 [facility] Work Phone: Platelet mean volume (Bld) [Entitic vol] 11.1 fL Normal 6.2-12.0 [facility] Work Phone: Comment on above: [facility] [address] [place], [address] Platelet mean volume Auto Entitic volume (Bld) 11.1 fL Normal 6.2-12.0 [facility] Work Phone: Platelets (Bld) [#/Vol] 310 10*3/uL Normal 150-450 [facility] Work Phone: Comment on above: [facility] [address] [place], [address] Platelets Auto #/vol (Bld) 310 10*3/uL Normal 150-450 [facility] Work Phone: RBC (Bld) [#/Vol] 4.56 {M/mm3} Normal 4.2-5.4 [facility] Internal Medicine Work Phone: Comment on above: [facility] [address] [place], [address] RBC Auto #/vol (Bld) 4.56 {M/mm3} Normal 4.2-5.4 [facility] Internal Medicine Work Phone: RDW SD 40.0 fL Normal 35.1-43.9 [facility] Work Phone: Comment on above: [facility] [address] [place], [place], [phone] WBC (Bld) [#/Vol] 6.2 10*3/uL Normal 4.4-11.0 [facility] Internal Medicine Work Phone: Comment on above: [facility] [address] [place], [address](786) WBC Auto #/vol (Bld) 6.2 10*3/uL Normal 4.4-11.0 [facility] prehensive Internal Medicine Work Phone: CBC W/Diff, Automated 0.300 % Normal 0.0-0.9 [facility] Work Phone: Comment on above: IG% - Immature Granu locytes (promyelocytes, myelocytes andmetamyelocytes) > 1% indicates that a LEFT SHIFT is Present. CBC W/Diff, Automated 40.0 fL Normal 35.1-43.9 [facility] Work Phone: CBC W/Diff, Automated 2.17 {X10_3/ul} Normal 0.83-4.51 [facility] Work Phone: CBC W/Diff, Automated 3.1 {X10_3/uL} Normal 2.0-7.7 [facility] Work Phone: Comprehensive Metabolic Prof ilon 09-07-2017 Comprehensive metabolic 2000 panel 36 U/L Normal 13-56 Comprehensi ve Internal Medicine Work Phone: Comment on above: Please note revised ALT reference range [id number]/28/2018. [facility] [address] [place], [address] Comprehensive metabolic 2000 panel 86 mg/dL Normal 74-106 Comprehensi ve Internal Medicine Work Phone: Comment on above: Please note revised GLUCOSE reference range /02/2018. [facility] [address] [place], [place], [id number] Comprehensive metabolic 2000 panel 14 mg/dL Normal 7-18 Comprehensi ve Internal Medicine Work Phone: Comment on above: [facility] [address] [place], [place], [id number] Comprehensive metabolic 2000 panel 0.72 mg/dL Normal 0.55-1.02 Comprehensi ve Internal Medicine Work Phone: Comment on above: The validity of the calculated GFR AND GFRAA in patients over70 years has not been determined. Clinical correlation isessential. [facility] [address] [place], [address] Comprehensive metabolic 2000 panel 87 mL/min Normal Comprehensi ve Internal Medicine Work Phone: Comment on above: Non- GFR Calc [facility] [address] [place], [place], [id number] Comprehensive metabolic 2000 panel 106 mL/min Normal Comprehensi ve Internal Medicine Work Phone: Comment on above: GFR Calc [facility] [address] [place], [place], [id number] Comprehensive metabolic 2000 panel 19.6 {RATIO} Normal 10-20 Comprehensi ve Internal Medicine Work Phone: Comment on above: [facility] [address] [place], [place], [address] Comprehensive metabolic 2000 panel 7.1 g/dL Normal 6.4-8.2 Comprehensi ve Internal Medicine Work Phone: Comment on above: [facility] [address] [place], [place], [address] Comprehensive metabolic 2000 panel 3.5 g/dL Normal 3.2-5.0 Comprehensi ve Internal Medicine Work Phone: Comment on above: [facility] [address] [place], [place], [phone] Comprehensive metabolic 2000 panel 3.6 g/dL Normal 2.2-4.2 Comprehensi ve Internal Medicine Work Phone: Comment on above: [facility] spital [address] [place], [place], [address] Comprehensive metabolic 2000 panel 1.0 {RATIO} Normal 0.9-2.4 Comprehensi ve Internal Medicine Work Phone: Comment on above: [facility] spital [address] [place], [place], [id number] Comprehensive metabolic 2000 panel 8.9 mg/dL Normal 8.5-10.1 Comprehensi ve Internal Medicine Work Phone: Comment on above: [facility] spital [address] [place], [place], [phone] Comprehensive metabolic 2000 panel 22 U/L Normal 15-37 Comprehensi ve Internal Medicine Work Phone: Comment on above: [facility] [address] [place], [place], [id number] Comprehensive metabolic 2000 panel 106 U/L Normal 45-117 Comprehensi ve Internal Medicine Work Phone: Comment on above: [facility] [address] [place], [place], [id number] Comprehensive metabolic 2000 panel 0.30 mg/dL Normal 0.20-1.00 Comprehensi ve Internal Medicine Work Phone: Comment on above: [facility] [address] [place], [address] Comprehensive metabolic 2000 panel 140 mmol/L Normal 136-145 Comprehensi ve Internal Medicine Work Phone: Comment on above: [facility] [address] [place], [place], [phone] Comprehensive metabolic 2000 panel 6 1 Normal 5-15 Comprehensi ve Internal Medicine Work Phone: Comment on above: [facility] [address] [place], [place], [id number] Comprehensive metabolic 2000 panel 28.0 mmol/L Normal 21.0-32.0 Comprehensi ve Internal Medicine Work Phone: Comment on above: [facility] [address] [place], [address] Comprehensive metabolic 2000 panel 106 mmol/L Normal 98-107 Comprehensi ve Internal Medicine Work Phone: Comment on above: [facility] [address] [place], [address] Comprehensive metabolic 2000 panel 3.9 mmol/L Normal 3.5-5.1 Comprehensi ve Internal Medicine Work Phone: Comment on above: [facility] [address] [place], [place], [id number] Lipid Profileon 09-07-2017 Cholesterol in HDL mass conc 48 mg/dL Normal [facility] Work Phone: Comment on above: The drugs N-Acetylcy steine and Metamizole may falselydepress this assay. Reference Range HDL <40 mg/dL Low HDL Cholesterol HDL >or= 60 mg/dL High HDL Cholesterol [facility] [address] [place], [place], [id number] Cholesterol in LDL mass conc 109 mg/dL Normal 0-130 [facility] Work Phone: Comment on above: [facility] [address] [place], [address] Cholesterol in VLDL mass conc 33 mg/dL Normal 5-40 [facility] Work Phone: Comment on above: [facility] [address] [place], [address] Cholesterol mass conc 190 mg/dL Normal [facility] Work Phone: Comment on above: <200 mg/dL Desirable 200-240 mg/dL Borderline >240 mg/dL High Risk [facility] [address] [place], [address] Triglyceride mass conc 164 mg/dL Normal [facility] Work Phone: Comment on above: The drugs N-Acetylcy steine and Metamizole may falselydepress this assay.Serum Triglycerides Reference Interval Normal <150 mg/dL Borderline high 150 - 199 mg/dL High 200 - 499 mg/dL Very High > or = 500 mg/dL [facility] [address] [place], [address] Lipid Profile 33 mg/dL Normal 5-40 Comprehensi ve Internal Medicine Work Phone: Comment on above: [facility] [address] [place], [address] Microalbon 09-07-2017 Creatinine [Mass/Vol] 102.00 mg/dL Normal [facility] Work Phone: Comment on above: [facility] [address] [place], [address] Creatinine mass conc 6.8 {mg/g_CRE} Normal [facility] Work Phone: Comment on above: [facility] [address] [place], [address] Microalb 7.0 mg/L Normal [facility] Work Phone: Comment on above: [facility] [address] [place], [address] Microalb 102.00 mg/dL Normal Comprehensiv e Internal Medicine Work Phone: NMR Lipoprofileon 09-07-2017 Cholesterol mass conc 192 mg/dL Normal 100-199 [facility] Work Phone: Comment on above: [facility] (refer to re port for specific site)refer to report for address and phone number Triglyceride mass conc 167 mg/dL Abnormal 0-149 [facility] Work Phone: Comment on above: [facility] (refer to re port for specific site)refer to report for address and phone number NMR Lipoprofile 70 1 Abnormal Comprehen sive Internal Medicine Work Phone: Comment on above: INSULIN RESISTANCE M ARKER <--Insulin Sensitive Insulin Resistant--> Percentile in Reference PopulationInsulin Resistance ScoreLP-IR Score Low 25th 50th 75th High <27 27 45 63 >63LP-IR Score is inaccurate if patient is non-fasting.The LP-IR score is a laboratory developed index that hasbeen associated with insulin resistance and diabetes riskand should be used as one component of a physician'sclinical assessment. The LP-IR score listed above has notbeen cleared by the [place] Food and Drug Administration.Performed at: [facility] [address] [id number] Director: Yvon Rondon MD, Phone: [phone] [facility] (refer to re port for specific site)refer to report for address and phone number NMR Lipoprofile . Normal [facility] Internal Medicine Work Phone: Comment on above: [facility] (refer to re port for specific site)refer to report for address and phone number NMR Lipoprofile 20.4 nm Normal [facility] Internal Medicine Work Phone: Comment on above: INTERPRETATIVE INFORMATION PARTICLE CONCENTRATION AND SIZE <--Lower CVD Risk Higher CVD Risk--> LDL AND HDL PARTICLES Percentile in Reference Population HDL-P (total) High 75th 50th 25th Low >34.9 34.9 30.5 26.7 <26.7 Small LDL-P Low 25th 50th 75th High <117 117 527 839 >839 LDL Size <-Large (Pattern A)-> <-Small (Pattern B)-> 23.0 20.6 20.5 19.0 Small LDL-P and LDL Size are associated with CVD risk, butnot after LDL-P is taken into account.These assays were developed and their performancecharacteristics determined by [employer]. These assayshave not been cleared by the [place] Food and DrugAdministration. The clinical utility of these laboratoryvalues have not been fully established. [facility] (refer to re port for specific site)refer to report for address and phone number NMR Lipoprofile 856 nmol/L Abnormal [facility] Internal Medicine Work Phone: Comment on above: [facility] (refer to re port for specific site)refer to report for address and phone number NMR Lipoprofile 36.7 umol/L Normal [facility] Internal Medicine Work Phone: Comment on above: [facility] (refer to re port for specific site)refer to report for address and phone number NMR Lipoprofile 1558 nmol/L Abnormal [facility] Internal Medicine Work Phone: Comment on above: Low < 1000 Moderate 1000 - 1299 Borderline-High 1300 - 1599 High 1600 - 2000 Very High > 2000 [facility] (refer to re port for specific site)refer to report for address and phone number NMR Lipoprofile 48 mg/dL Normal [facility] Internal Medicine Work Phone: Comment on above: [facility] (refer to re port for specific site)refer to report for address and phone number NMR Lipoprofile 111 mg/dL Abnormal 0-99 [facility] Internal Medicine Work Phone: Comment on above: Optimal < 100 Above optimal 100 - 129 Borderline 130 - 159 High 160 - 189 Very high > 189LDL-C is inaccurate if patient is non-fasting. [facility] (refer to re port for specific site)refer to report for address and phone number Thyroid Stim Hormone (TSH)on 09-07-2017 Thyrotropin Qn 1.13 {uIU/mL} Normal 0.358-3.74 Compreh [facility] Internal Medicine Work Phone: Comment on above: [facility] [address] [place], [place], [address] Urinalysis, Completeon 09-07 Protein mass conc (U) Negative Normal [facility] Work Phone: Comment on above: How was Urine Obtain ed? [facility] [address] [place], [address] RBC (U) [#/Vol] 0-5 SEEN Normal 0-5 Comprehen [facility] Internal Medicine Work Phone: Comment on above: How was Urine Obtain ed? [facility] [address] [place], [address] RBC Test strip #/vol (U) 0-5 SEEN Normal 0-5 [facility] Work Phone: Urinalysis complete panel - Urine Yellow Normal [facility] Work Phone: Comment on above: How was Urine Obtain ed? [facility] [address] [place], [address] Urinalysis complete panel - Urine 1+ Normal [facility] Work Phone: Comment on above: How was Urine Obtain ed? [facility] [address] [place], [address] Urinalysis complete panel - Urine RARE Normal [facility] Work Phone: Comment on above: How was Urine Obtain ed? [facility] [address] [place], [address] Urinalysis complete panel - Urine 0 SEEN Normal 5-10 [facility] Work Phone: Comment on above: How was Urine Obtain ed? [facility] [address] [place], [address] Urinalysis complete panel - Urine 0-5 SEEN Normal 0-5 [facility] Work Phone: Comment on above: How was Urine Obtain ed? [facility] [address] [place], [address] Urinalysis complete panel - Urine 25 /ul Abnormal [facility] Work Phone: Comment on above: How was Urine Obtain ed? [facility] [address] [place], [address] Urinalysis complete panel - Urine 150 /ul Abnormal [facility] Work Phone: Comment on above: How was Urine Obtain ed? [facility] [address] [place], [address] Urinalysis complete panel - Urine Negative Normal [facility] Work Phone: Comment on above: How was Urine Obtain ed? [facility] [address] [place], [address] Urinalysis complete panel - Urine Normal Normal [facility] Work Phone: Comment on above: How was Urine Obtain ed? [facility] [address] [place], [place], [address] Urinalysis complete panel - Urine 5.0 1 Normal 5.0 - 8.0 [facility] Work Phone: Comment on above: How was Urine Obtain ed? [facility] [address] [place], [place], [id number] Urinalysis complete panel - Urine 1.020 1 Normal 1.002-1.03 0 [facility] Work Phone: Comment on above: How was Urine Obtain ed? [facility] [address] [place], [place], [address] Urinalysis complete panel - Urine Cloudy Normal [facility] Work Phone: Comment on above: How was Urine Obtain ed? [facility] [address] [place], [place], [id number] Colonoscopyon 06-10-2017 Colonoscopy Normal [facility] Custom Document 1on 06-10-20 17 Custom Document 1 [facility] Path Surgicalon 06-10-2017 Path Surgical [place] MARIAJOSE MARCELINO Case#: [id number]: Date 06/11/2017 Reported: SURGICAL PATHOLOGY REPORTCopy To: SURGICAL PATHOLOGY REPORTSpecimen SourceHepatic flexure polypClinical InformationFamily history of colon CAGross DescriptionReceived in formalin labeled hepatic flexure polyp is a single 8 x 4x 3 mm dee tissue fragment. Entirely submitted. (vr)Microscopic DiagnosisColon, hepatic flexure, biopsy: Tubular adenoma.UNRULY WALDEN, DOVerified by Electronic Signature 06/11/2017 11:15CPT [id number] X1Page 1 of 1Report Printed: Final06/11/2017 11:14 AM Normal [facility] Comment on above: Performed By: #### P SURGR ####[facility] Laboratory ServicesDr. Unruly Walden [id number] [place] [address] Patient Instructionson 06-10 Patient Instructions Normal [facility] Patient Letteron 06-10-2017 Patient Letter Normal [facility] Post Op Orderson 06-10-2017 Post Op Orders Normal [facility] Referring Letteron 7 Referring Letter Normal [facility] BILATERAL SCREENING W/CADon 02-10-2017 BILATERAL SCREENING W/CAD PATIENT HISTORY:No known family history of cancer.Took estrogen for 1 month beginning at age 51.Patient has never smoked.Last mammogram was performed 1 year ago. REASON FOR EXAM: screening, asymptomatic. PHYSICAL FINDINGS: BILATERAL SCREENING WITH CAD: 02/10/17 - Zpehiibgk CC and MLO view(s) were taken.Technologist: Kehinde FletcherPrior study comparison: 02/04/16, bilateral guero direct digital screening mammo performed at [facility]. 01/22/15, bilateral guero direct digital screening mammoperformed at [facility].The breast tissue is almost entirely fat. Digital mammography demonstrates scattered benign appearing calcifications. There isno dominant mass, pathologic clustering of microcalcifications or skin thickening present. ACR BI-RADS? ASSESSMENTS: BENIGN BI-RADS 2 Analyzed by CAD RECOMMENDATION:Routine screening mammogram of both breasts in 1 year.Electronically signed and approved by: Alli Cuenca M.D. February 10, 2017 16:27Correction was made to this report.Addended by: Alli Cuenca M.D. Final Report Normal [facility] Large Joint Arthro/Inj: R kn ee joint [facility] Vital Signs Date Time Vital Sign Value Performing Clinician Facility 02-22-2025 11:39-0400 Body height 152.[address] Deanna Aponte DO Work Phone: [facility] 02-22-2025 11:34-0400 Body mass index (BMI) [Ratio] 28.8 kg/m2 Dr. Deanna Aponte DO Work Phone: [facility] 02-22-2025 11:34-0400 Body weight 66.[address] Deanna Aponte DO Work Phone: [facility] 02-22-2025 11:34-0400 Diastolic blood pressure 78 mm[Hg] Dr. Deanna Aponte DO Work Phone: [facility] 02-22-2025 11:34-0400 Systolic blood pressure 138 mm[Hg] Dr. Deanna Aponte DO Work Phone: [facility] 08-05-2024 09:10-0500 Body height 152.4 cm Casey Garcia MD Work Phone: [facility] 08-05-2024 09:10-0500 Body mass index (BMI) [Ratio] 29.69 kg/m2 Casey Garcia MD Work Phone: [facility] 08-05-2024 09:10-0500 Body temperature 98.29 [degF] Casey Garcia MD Work Phone: [facility] 08-05-2024 09:10-0500 Body weight 68.95 kg Casey Garcia MD Work Phone: [facility] 08-05-2024 09:10-0500 Diastolic blood pressure 76 mm[Hg] Casey Garcia MD Work Phone: [facility] 08-05-2024 09:10-0500 Heart rate 78 /min Casey Garcia MD Work Phone: [facility] 08-05-2024 09:10-0500 Respiratory rate 18 /min Casey Garcia MD Work Phone: [facility] 08-05-2024 09:10-0500 SaO2% (BldA) [Mass fraction] 97 % Casey Garcia MD Work Phone: [facility] 08-05-2024 09:10-0500 Systolic blood pressure 139 mm[Hg] Casey Garcia MD Work Phone: [facility] 12-17-2023 10:10-0400 Diastolic blood pressure 78 mm[Hg] Candace Zaire PT Work Phone: [facility] 12-17-2023 10:10-0400 Heart rate 78 /min Candace Zaire PT Work Phone: [facility] 12-17-2023 10:10-0400 SaO2% (BldA) [Mass fraction] 98 % Candace Zaire PT Work Phone: [facility] 12-17-2023 10:10-0400 Systolic blood pressure 138 mm[Hg] Candace Zaire PT Work Phone: [facility] 12-17-2023 09:44-0400 Body temperature 98.91 [degF] Candace Zaire PT Work Phone: [facility] 12-17-2023 09:44-0400 Respiratory rate 16 /min Candace Zaire PT Work Phone: [facility] 12-15-2023 12:30-0400 Diastolic blood pressure 82 mm[Hg] Candace Zaire PT Work Phone: [facility] 12-15-2023 12:30-0400 Heart rate 74 /min Candace Zaire PT Work Phone: [facility] 12-15-2023 12:30-0400 SaO2% (BldA) [Mass fraction] 99 % Candace Zaire PT Work Phone: [facility] 12-15-2023 12:30-0400 Systolic blood pressure 138 mm[Hg] Candace Zaire PT Work Phone: [facility] 12-15-2023 11:58-0400 Body temperature 98.49 [degF] Candace Zaire PT Work Phone: [facility] 12-15-2023 11:58-0400 Respiratory rate 14 /min Candace Zaire PT Work Phone: [facility] 12-11-2023 09:48-0400 Diastolic blood pressure 70 mm[Hg] Candace Zaire PT Work Phone: [facility] 12-11-2023 09:48-0400 Heart rate 70 /min Candace Zaire PT Work Phone: [facility] 12-11-2023 09:48-0400 SaO2% (BldA) [Mass fraction] 99 % Candace Zaire PT Work Phone: [facility] 12-11-2023 09:48-0400 Systolic blood pressure 140 mm[Hg] Candace Zaire PT Work Phone: [facility] 12-11-2023 09:13-0400 Body temperature 98.4 [degF] Candace Zaire PT Work Phone: [facility] 12-11-2023 09:13-0400 Respiratory rate 16 /min Candace Zaire PT Work Phone: [facility] 12-10-2023 11:22-0400 Diastolic blood pressure 78 mm[Hg] Candace Zaire PT Work Phone: [facility] 12-10-2023 11:22-0400 Heart rate 74 /min Candace Zaire PT Work Phone: [facility] 12-10-2023 11:22-0400 SaO2% (BldA) [Mass fraction] 99 % Candace Zaire PT Work Phone: [facility] 12-10-2023 11:22-0400 Systolic blood pressure 138 mm[Hg] Candace Housem PT Work Phone: [facility] 12-10-2023 10:35-0400 Body temperature 98.29 [degF] Candace Housem PT Work Phone: [facility] 12-10-2023 10:35-0400 Respiratory rate 16 /min Candace Housem PT Work Phone: [facility] 12-08-2023 16:00-0400 Diastolic blood pressure 80 mm[Hg] Candace Housem PT Work Phone: [facility] 12-08-2023 16:00-0400 Heart rate 80 /min Candace Housem PT Work Phone: [facility] 12-08-2023 16:00-0400 SaO2% (BldA) [Mass fraction] 99 % Candace Housem PT Work Phone: [facility] 12-08-2023 16:00-0400 Systolic blood pressure 142 mm[Hg] Candace Housem PT Work Phone: [facility] 12-08-2023 15:27-0400 Body temperature 98.71 [degF] Candace Housem PT Work Phone: [facility] 12-08-2023 15:27-0400 Respiratory rate 16 /min Candace Housem PT Work Phone: [facility] 12-05-2023 13:03-0400 Diastolic blood pressure 75 mm[Hg] Gema Cummins PT Work Phone: [facility] Comment on above: after ambulation 12-05-2023 13:03-0400 Heart rate 73 /min Gema Cummins PT Work Phone: [facility] 12-05-2023 13:03-0400 SaO2% (BldA) [Mass fraction] 99 % Gema Cummins PT Work Phone: [facility] 12-05-2023 13:03-0400 Systolic blood pressure 140 mm[Hg] Gema Cummins PT Work Phone: [facility] Comment on above: after ambulation 12-05-2023 12:43-0400 Body temperature 97.2 [degF] Gema Cummins PT Work Phone: [facility] 12-05-2023 12:43-0400 Respiratory rate 16 /min Gema Cummins PT Work Phone: [facility] 11-12-2023 08:45-0400 Body height 161 cm Pacc 1 [facility] 11-12-2023 08:45-0400 Body temperature 98.1 [degF] Pacc 1 [facility] 11-12-2023 08:45-0400 Body weight 68.2 kg Pacc 1 [facility] 11-12-2023 08:45-0400 Diastolic blood pressure 68 mm[Hg] Pacc 1 [facility] 11-12-2023 08:45-0400 Heart rate 73 /min Pacc 1 [facility] 11-12-2023 08:45-0400 Respiratory rate 20 /min Pacc 1 [facility] 11-12-2023 08:45-0400 SaO2% (BldA) [Mass fraction] 100 % Pacc 1 [facility] 11-12-2023 08:45-0400 Systolic blood pressure 143 mm[Hg] Pacc 1 [facility] 09-02-2023 11:08-0500 Body height 152.[address] Deanna Aponte Work Phone: [facility] 09-02-2023 11:07-0500 Body mass index (BMI) [Ratio] 28.8 kg/m2 Dr. Deanna Aponte Work Phone: [facility] 09-02-2023 11:07-0500 Body weight 66.[address] Deanna Aponte Work Phone: [facility] 09-02-2023 11:07-0500 Diastolic blood pressure 82 mm[Hg] Dr. Deanna Aponte Work Phone: [facility] 09-02-2023 11:07-0500 Systolic blood pressure 128 mm[Hg] Dr. Deanna Aponte Work Phone: [facility] 04-13-2023 10:16-0400 Body height 154.94 cm [facility]; [facility] Work Phone: 04-13-2023 10:16-0400 Body mass index (BMI) [Ratio] 27.23 kg/m2 [facility]; [facility] Work Phone: 04-13-2023 10:16-0400 Body surface area Derived from formula 1.64 m2 [facility]; [facility] Work Phone: 04-13-2023 10:16-0400 Body temperature 97 [degF] [facility]; [facility] Work Phone: 04-13-2023 10:16-0400 Body weight 65.38 kg [facility]; [facility] Work Phone: 04-13-2023 10:16-0400 Diastolic blood pressure 72 mm[Hg] [facility]; [facility] Work Phone: Comment on above: Patient Position: Sitting; Cuff Location : Left Arm; Cuff Size: Standard 04-13-2023 10:16-0400 Heart rate 57 /min [facility]; [facility] Work Phone: Comment on above: Pattern: Regular 04-13-2023 10:16-0400 Respiratory rate 18 /min [facility]; [facility] Work Phone: Comment on above: Pattern: Unlabored 04-13-2023 10:16-0400 SaO2% (BldA) [Mass fraction] 98 % [facility]; [facility] Work Phone: Comment on above: Room air 04-13-2023 10:16-0400 Systolic blood pressure 124 mm[Hg] Wilbur Llewellynsheri TUTTLE [facility]; [facility] Work Phone: Comment on above: Patient Position: Sitting; Cuff Location : Left Arm; Cuff Size: Standard 12-28-2022 14:18-0400 Body temperature 98.4 [degF] Casey Garcia MD Work Phone: [facility] 12-28-2022 14:18-0400 Body weight 65.41 kg Casey Garcia MD Work Phone: [facility] 12-28-2022 14:18-0400 Diastolic blood pressure 72 mm[Hg] Casey Garcia MD Work Phone: [facility] 12-28-2022 14:18-0400 Heart rate 69 /min Casey Garcia MD Work Phone: [facility] 12-28-2022 14:18-0400 Respiratory rate 20 /min Casey Garcia MD Work Phone: [facility] 12-28-2022 14:18-0400 SaO2% (BldA) [Mass fraction] 96 % Casey Garcia MD Work Phone: [facility] 12-28-2022 14:18-0400 Systolic blood pressure 163 mm[Hg] Casey Garcia MD Work Phone: [facility] 10-08-2022 08:49-0400 Body height 154.94 cm Isha Zapata MA [facility]; [facility] Work Phone: 10-08-2022 08:49-0400 Body mass index (BMI) [Ratio] 26.69 kg/m2 Isha Zapata MA [facility]; [facility] Work Phone: 10-08-2022 08:49-0400 Body surface area Derived from formula 1.63 m2 Isha Zapata MA [facility]; [facility] Work Phone: 10-08-2022 08:49-0400 Body temperature 96.9 [degF] Isha Zapata MA [facility]; [facility] Work Phone: 10-08-2022 08:49-0400 Body weight 64.07 kg Isha Zapata MA [facility]; [facility] Work Phone: 10-08-2022 08:49-0400 Diastolic blood pressure 60 mm[Hg] Isha Zapata MA [facility]; [facility] Work Phone: Comment on above: Patient Position: Sitting; Cuff Location : Left Arm; Cuff Size: Standard 10-08-2022 08:49-0400 Heart rate 65 /min Isha Zapata MA [facility]; [facility] Work Phone: Comment on above: Pattern: Regular 10-08-2022 08:49-0400 Respiratory rate 16 /min Isha Zapata MA [facility]; [facility] Work Phone: Comment on above: Pattern: Unlabored 10-08-2022 08:49-0400 SaO2% (BldA) [Mass fraction] 99 % Isha Zapata MA [facility]; [facility] Work Phone: Comment on above: Room air 10-08-2022 08:49-0400 Systolic blood pressure 122 mm[Hg] Isha Zapata MA [facility]; [facility] Work Phone: Comment on above: Patient Position: Sitting; Cuff Location : Left Arm; Cuff Size: Standard 09-10-2022 10:45-0500 Body height 154.94 cm [facility]; [facility] Work Phone: 09-10-2022 10:45-0500 Body mass index (BMI) [Ratio] 26.69 kg/m2 [facility]; [facility] Work Phone: 09-10-2022 10:45-0500 Body surface area Derived from formula 1.63 m2 [facility]; [facility] Work Phone: 09-10-2022 10:45-0500 Body temperature 96.9 [degF] [facility]; [facility] Work Phone: 09-10-2022 10:45-0500 Body weight 64.07 kg [facility]; [facility] Work Phone: 09-10-2022 10:45-0500 Diastolic blood pressure 70 mm[Hg] [facility]; [facility] Work Phone: Comment on above: Patient Position: Sitting; Cuff Location : Left Arm; Cuff Size: Standard 09-10-2022 10:45-0500 Heart rate 72 /min [facility]; [facility] Work Phone: Comment on above: Pattern: Regular 09-10-2022 10:45-0500 Respiratory rate 16 /min [facility] Com[facility]; [facility] Work Phone: Comment on above: Pattern: Unlabored 09-10-2022 10:45-0500 SaO2% (BldA) [Mass fraction] 97 % [facility]; [facility] Work Phone: Comment on above: Room air 09-10-2022 10:45-0500 Systolic blood pressure 122 mm[Hg] [facility]; [facility] Work Phone: Comment on above: Patient Position: Sitting; Cuff Location : Left Arm; Cuff Size: Standard 09-01-2022 10:59-0500 Body height 152.[address] Deanna Aponte Work Phone: [facility] 09-01-2022 10:50-0500 Body mass index (BMI) [Ratio] 27.6 kg/m2 Dr. Deanna Aponte Work Phone: [facility] 09-01-2022 10:50-0500 Body weight 64.[address] Deanna Aponte Work Phone: [facility] 09-01-2022 10:50-0500 Diastolic blood pressure 78 mm[Hg] Dr. Deanna Aponte Work Phone: [facility] 09-01-2022 10:50-0500 Systolic blood pressure 132 mm[Hg] Dr. Deanna Aponte Work Phone: [facility] 07-07-2022 14:50-0500 [facility]; [facility] Work Phone: 07-07-2022 14:50-0500 Body mass index (BMI) [Ratio] 26.69 kg/m2 [facility]; [facility] Work Phone: 07-07-2022 14:50-0500 Body surface area Derived from formula 1.63 m2 chela Noble [facility]; [facility] Work Phone: 07-07-2022 14:50-0500 Body temperature 97.3 [degF] Dhiraj Hooper [facility] Comprehensiv e Internal Medicine; [facility] Work Phone: 07-07-2022 14:50-0500 Body weight 64.07 kg [facility]; [facility] Work Phone: 07-07-2022 14:50-0500 Diastolic blood pressure 64 mm[Hg] chela Noble [facility]; [facility] Work Phone: Comment on above: Patient Position: Sitting; Cuff Location : Left Arm; Cuff Size: Standard 07-07-2022 14:50-0500 Heart rate 71 /min Dhiraj Hooper [facility]; [facility] Work Phone: Comment on above: Pattern: Regular 07-07-2022 14:50-0500 Respiratory rate 16 /min chela Noble [facility] Comprehensiv e Internal Medicine; [facility] Work Phone: Comment on above: Pattern: Unlabored 07-07-2022 14:50-0500 SaO2% (BldA) [Mass fraction] 99 % [facility]; [facility] Work Phone: Comment on above: Room air 07-07-2022 14:50-0500 Systolic blood pressure 124 mm[Hg] Dhiraj Hooper [facility]; [facility] Work Phone: Comment on above: Patient Position: Sitting; Cuff Location : Left Arm; Cuff Size: Standard 06-23-2022 08:14-0500 Body temperature 97.59 [degF] Divya Solomon RN Work Phone: [facility] 06-23-2022 08:14-0500 Diastolic blood pressure 76 mm[Hg] Divya Solomon RN Work Phone: [facility] 06-23-2022 08:14-0500 Heart rate 70 /min Divya Solomon RN Work Phone: [facility] 06-23-2022 08:14-0500 Respiratory rate 18 /min Divya Solomon RN Work Phone: [facility] 06-23-2022 08:14-0500 SaO2% (BldA) [Mass fraction] 97 % Divya Solomon RN Work Phone: [facility] 06-23-2022 08:14-0500 Systolic blood pressure 126 mm[Hg] Divya Solomon RN Work Phone: [facility] 06-21-2022 12:01-0500 Body temperature 98.2 [degF] Silvia Isaac RN Work Phone: [facility] 06-16-2022 08:31-0500 Body temperature 96.91 [degF] Divya Solomon RN Work Phone: [facility] 06-16-2022 08:31-0500 Diastolic blood pressure 80 mm[Hg] Divya Solomon RN Work Phone: [facility] 06-16-2022 08:31-0500 Heart rate 94 /min Divya Solomon RN Work Phone: [facility] 06-16-2022 08:31-0500 Respiratory rate 18 /min Divya Solomon RN Work Phone: [facility] 06-16-2022 08:31-0500 SaO2% (BldA) [Mass fraction] 99 % Divya Solomon RN Work Phone: [facility] 06-16-2022 08:31-0500 Systolic blood pressure 130 mm[Hg] Divya Solomon RN Work Phone: [facility] 06-12-2022 08:31-0500 Body temperature 97.5 [degF] Divya Solomon RN Work Phone: [facility] 06-12-2022 08:31-0500 Diastolic blood pressure 80 mm[Hg] Divya Solomon RN Work Phone: [facility] 06-12-2022 08:31-0500 Heart rate 70 /min Divya Solomon RN Work Phone: [facility] 06-12-2022 08:31-0500 Respiratory rate 18 /min Divya Solomon RN Work Phone: [facility] 06-12-2022 08:31-0500 SaO2% (BldA) [Mass fraction] 99 % Divya Solomon RN Work Phone: [facility] 06-12-2022 08:31-0500 Systolic blood pressure 130 mm[Hg] Divya Solomon RN Work Phone: [facility] 06-09-2022 08:04-0500 Body temperature 98.49 [degF] Concepcion Frederick RN Work Phone: [facility] 06-09-2022 08:04-0500 Diastolic blood pressure 76 mm[Hg] Concepcion Frederick RN Work Phone: [facility] 06-09-2022 08:04-0500 Heart rate 64 /min Concepcion Frederick RN Work Phone: [facility] 06-09-2022 08:04-0500 Respiratory rate 18 /min Concepcion Frederick RN Work Phone: [facility] 06-09-2022 08:04-0500 Systolic blood pressure 142 mm[Hg] Concepcion Frederick RN Work Phone: [facility] 06-02-2022 08:29-0500 Body temperature 97 [degF] Divya Solomon RN Work Phone: [facility] 06-02-2022 08:29-0500 Diastolic blood pressure 80 mm[Hg] Divya Solomon RN Work Phone: [facility] 06-02-2022 08:29-0500 Heart rate 84 /min Divya Solomon RN Work Phone: [facility] 06-02-2022 08:29-0500 Respiratory rate 18 /min Divya Solomon RN Work Phone: [facility] 06-02-2022 08:29-0500 SaO2% (BldA) [Mass fraction] 99 % Divya Solomon RN Work Phone: [facility] 06-02-2022 08:29-0500 Systolic blood pressure 128 mm[Hg] Divya Solomon RN Work Phone: [facility] 05-29-2022 09:10-0400 Body temperature 97.39 [degF] Irene Badillo RN Work Phone: [facility] 05-29-2022 09:10-0400 Diastolic blood pressure 60 mm[Hg] Irene Badillo RN Work Phone: [facility] 05-29-2022 09:10-0400 Heart rate 60 /min Irene Badillo RN Work Phone: [facility] 05-29-2022 09:10-0400 Respiratory rate 18 /min Irene Badillo RN Work Phone: [facility] 05-29-2022 09:10-0400 SaO2% (BldA) [Mass fraction] 98 % Irene Badillo RN Work Phone: [facility] 05-29-2022 09:10-0400 Systolic blood pressure 110 mm[Hg] Irene Badillo RN Work Phone: [facility] 05-26-2022 08:37-0400 Body temperature 97 [degF] Divya Solomon RN Work Phone: [facility] 05-26-2022 08:37-0400 Diastolic blood pressure 72 mm[Hg] Divya Solomon RN Work Phone: [facility] 05-26-2022 08:37-0400 Heart rate 66 /min Divya Solomon RN Work Phone: [facility] 05-26-2022 08:37-0400 Respiratory rate 18 /min Divya Solomon RN Work Phone: [facility] 05-26-2022 08:37-0400 SaO2% (BldA) [Mass fraction] 99 % Divya Solomon RN Work Phone: [facility] 05-26-2022 08:37-0400 Systolic blood pressure 132 mm[Hg] Divya Solomon RN Work Phone: [facility] 05-21-2022 10:29-0400 Body temperature 98.1 [degF] Divya Solomon RN Work Phone: [facility] 05-21-2022 10:29-0400 Diastolic blood pressure 66 mm[Hg] Divya Solomon RN Work Phone: [facility] 05-21-2022 10:29-0400 Heart rate 76 /min Divya Solomon RN Work Phone: [facility] 05-21-2022 10:29-0400 Respiratory rate 18 /min Divya Solomon RN Work Phone: [facility] 05-21-2022 10:29-0400 SaO2% (BldA) [Mass fraction] 99 % Divya Solomon RN Work Phone: [facility] 05-21-2022 10:29-0400 Systolic blood pressure 124 mm[Hg] Divya Solomon RN Work Phone: [facility] 05-20-2022 14:33-0400 Body temperature 98.29 [degF] Amaya [place] PT Work Phone: [facility] 05-20-2022 14:33-0400 Diastolic blood pressure 78 mm[Hg] Amaya [place] PT Work Phone: [facility] 05-20-2022 14:33-0400 Heart rate 68 /min Amaya Jose Juan PT Work Phone: [facility] 05-20-2022 14:33-0400 Respiratory rate 18 /min Amaya [place] PT Work Phone: [facility] 05-20-2022 14:33-0400 SaO2% (BldA) [Mass fraction] 98 % Amaya [place] PT Work Phone: [facility] 05-20-2022 14:33-0400 Systolic blood pressure 122 mm[Hg] Amaya Jose Juan PT Work Phone: [facility] 05-20-2022 10:27-0400 Body temperature 97.39 [degF] Divya Solomon RN Work Phone: [facility] 05-20-2022 10:27-0400 Diastolic blood pressure 76 mm[Hg] Divya Solomon RN Work Phone: [facility] 05-20-2022 10:27-0400 Heart rate 68 /min Divya Solomon RN Work Phone: [facility] 05-20-2022 10:27-0400 Respiratory rate 18 /min Divya Solomon RN Work Phone: [facility] 05-20-2022 10:27-0400 SaO2% (BldA) [Mass fraction] 99 % Divya Solomon RN Work Phone: [facility] 05-20-2022 10:27-0400 Systolic blood pressure 122 mm[Hg] Divya Solomon RN Work Phone: [facility] 05-19-2022 20:17-0400 Body temperature 99.39 [degF] Concepcion Frederick RN Work Phone: [facility] 05-19-2022 20:17-0400 Diastolic blood pressure 70 mm[Hg] Concepcion Frederick RN Work Phone: [facility] 05-19-2022 20:17-0400 Heart rate 68 /min Concepcion Frederick RN Work Phone: [facility] 05-19-2022 20:17-0400 Respiratory rate 18 /min Concepcion Frederick RN Work Phone: [facility] 05-19-2022 20:17-0400 SaO2% (BldA) [Mass fraction] 97 % Concepcion Frederick RN Work Phone: [facility] 05-19-2022 20:17-0400 Systolic blood pressure 142 mm[Hg] Concepcion Frederick RN Work Phone: [facility] 05-19-2022 11:04-0400 Body temperature 98.29 [degF] Divya Solomon RN Work Phone: [facility] 05-19-2022 11:04-0400 Diastolic blood pressure 70 mm[Hg] Divya Solomon RN Work Phone: [facility] 05-19-2022 11:04-0400 Heart rate 66 /min Divya Solomon RN Work Phone: [facility] 05-19-2022 11:04-0400 Respiratory rate 18 /min Divya Solomon RN Work Phone: [facility] 05-19-2022 11:04-0400 SaO2% (BldA) [Mass fraction] 98 % Divya Solomon RN Work Phone: [facility] 05-19-2022 11:04-0400 Systolic blood pressure 118 mm[Hg] Divya Solomon RN Work Phone: [facility] 05-18-2022 18:30-0400 Respiratory rate 18 /min Romelia Aragon RN Work Phone: [facility] 05-18-2022 10:49-0400 Body temperature 97 [degF] Irene Badillo RN Work Phone: [facility] 05-18-2022 10:49-0400 Diastolic blood pressure 70 mm[Hg] Irene Bdaillo RN Work Phone: [facility] 05-18-2022 10:49-0400 Heart rate 78 /min Irene Badillo RN Work Phone: [facility] 05-18-2022 10:49-0400 Respiratory rate 16 /min Irene Badillo RN Work Phone: [facility] 05-18-2022 10:49-0400 SaO2% (BldA) [Mass fraction] 98 % Irene Badillo RN Work Phone: [facility] 05-18-2022 10:49-0400 Systolic blood pressure 138 mm[Hg] Irene Badillo RN Work Phone: [facility] 02-26-2022 09:02-0400 Body height 154.94 cm Nereida Philip [facility]; [facility] Work Phone: 02-26-2022 09:02-0400 Body mass index (BMI) [Ratio] 26.71 kg/m2 Nereida Philip [facility]; [facility] Work Phone: 02-26-2022 09:02-0400 Body surface area Derived from formula 1.63 m2 Nereida Philip [facility]; [facility] Work Phone: 02-26-2022 09:02-0400 Body temperature 97.3 [degF] Nereida Philip [facility] Comprehensiv e Internal [facility]; [facility] Work Phone: Comment on above: Method: Infrared 02-26-2022 09:02-0400 Body weight 64.13 kg Nereida Philip [facility]; [facility] Work Phone: 02-26-2022 09:02-0400 Diastolic blood pressure 62 mm[Hg] Nereida Philip [facility]; [facility] Work Phone: Comment on above: Patient Position: Sitting; Cuff Location : Left Arm; Cuff Size: Standard 02-26-2022 09:02-0400 Heart rate 74 /min Nereida Philip [facility]; [facility] Work Phone: Comment on above: Pattern: Regular 02-26-2022 09:02-0400 Respiratory rate 18 /min Nereida Philip [facility] Comprehensiv e Internal [facility]; [facility] Work Phone: Comment on above: Pattern: Unlabored 02-26-2022 09:02-0400 SaO2% (BldA) [Mass fraction] 99 % Nereida Philip [facility]; [facility] Work Phone: Comment on above: Room air 02-26-2022 09:02-0400 Systolic blood pressure 112 mm[Hg] Nereida Philip [facility]; [facility] Work Phone: Comment on above: Patient Position: Sitting; Cuff Location : Left Arm; Cuff Size: Standard 08-15-2021 11:11-0500 Body height 154.94 cm Tracey Salomon LPN [facility]; [facility] Work Phone: 08-15-2021 11:11-0500 Body mass index (BMI) [Ratio] 26.33 kg/m2 Tracey Salomon LPN [facility]; [facility] Work Phone: 08-15-2021 11:11-0500 Body surface area Derived from formula 1.62 m2 Tracey Salomon LPN [facility]; [facility] Work Phone: 08-15-2021 11:11-0500 Body temperature 97.1 [degF] Tracey Salomon LPN [facility]; [facility] Work Phone: Comment on above: Method: Temporal 08-15-2021 11:11-0500 Body weight 63.22 kg Tracey Salomon LPN [facility]; [facility] Work Phone: 08-15-2021 11:11-0500 Diastolic blood pressure 80 mm[Hg] Tracey Salomon LPN [facility]; [facility] Work Phone: Comment on above: Patient Position: Sitting; Cuff Location : Left Arm; Cuff Size: Standard 08-15-2021 11:11-0500 Heart rate 61 /min Tracey Salomon MARRY [facility]; [facility] Work Phone: Comment on above: Pattern: Regular 08-15-2021 11:11-0500 Respiratory rate 16 /min Tracey Salomon MARRY [facility]; [facility] Work Phone: Comment on above: Pattern: Unlabored 08-15-2021 11:11-0500 SaO2% (BldA) [Mass fraction] 99 % Tracey Salomon MARRY [facility]; [facility] Work Phone: Comment on above: Room air 08-15-2021 11:11-0500 Systolic blood pressure 128 mm[Hg] Tracey Aime MARRY [facility]; [facility] Work Phone: Comment on above: Patient Position: Sitting; Cuff Location : Left Arm; Cuff Size: Standard 02-13-2021 08:13-0400 Body height 154.94 cm Tracey Aime MARRY [facility]; [facility] Work Phone: 02-13-2021 08:13-0400 Body mass index (BMI) [Ratio] 26.45 kg/m2 Tracey Aime MARRY [facility]; [facility] Work Phone: 02-13-2021 08:13-0400 Body surface area Derived from formula 1.62 m2 Tracey Salomon MARRY [facility]; [facility] Work Phone: 02-13-2021 08:13-0400 Body temperature 97.5 [degF] Tracey Aime MARRY [facility]; [facility] Work Phone: Comment on above: Method: Temporal 02-13-2021 08:13-0400 Body weight 63.5 kg Tracey Aime LPN [facility]; [facility] Work Phone: 02-13-2021 08:13-0400 Diastolic blood pressure 74 mm[Hg] Tracey Salomon LPN [facility]; [facility] Work Phone: Comment on above: Patient Position: Sitting; Cuff Location : Left Arm; Cuff Size: Standard 02-13-2021 08:13-0400 Heart rate 59 /min Tracey Salomon LPN [facility]; [facility] Work Phone: Comment on above: Pattern: Regular 02-13-2021 08:13-0400 Respiratory rate 16 /min Tracey Salomon LPN [facility]; [facility] Work Phone: Comment on above: Pattern: Unlabored 02-13-2021 08:13-0400 SaO2% (BldA) [Mass fraction] 98 % Tracey Salomon LPN [facility]; [facility] Work Phone: Comment on above: Room air 02-13-2021 08:13-0400 Systolic blood pressure 128 mm[Hg] Tracey Salomon LPN [facility]; [facility] Work Phone: Comment on above: Patient Position: Sitting; Cuff Location : Left Arm; Cuff Size: Standard 10-23-2020 07:39-0400 BMI (Body Mass Index) 26.33 kg/m2 Chuck Schmitt LPN [facility]; [facility] Work Phone: 10-23-2020 07:39-0400 Body Temperature 97.5 [degF] Chuck Schmitt LPN [facility]; [facility] Work Phone: Comment on above: Method: Infrared 10-23-2020 07:39-0400 Body weight 63.22 kg Chuck Schmitt LPN [facility]; [facility] Work Phone: 10-23-2020 07:39-0400 BP Diastolic 68 mm[Hg] Chuck Schmitt LPN [facility]; [facility] Work Phone: Comment on above: Patient Position: Sitting; Cuff Location : Left Arm; Cuff Size: Standard 10-23-2020 07:39-0400 BP Systolic 106 mm[Hg] Chuck Schmitt LPN [facility]; [facility] Work Phone: Comment on above: Patient Position: Sitting; Cuff Location : Left Arm; Cuff Size: Standard 10-23-2020 07:39-0400 BSA (Body Surface Area) 1.62 m2 Chuck Schmitt LPN [facility]; [facility] Work Phone: 10-23-2020 07:39-0400 Height 154.94 cm Chuck Schmitt LPN [facility]; [facility] Work Phone: 10-23-2020 07:39-0400 Pulse (Heart Rate) 68 /min Chuck Schmitt LPN Com[facility]; [facility] Work Phone: Comment on above: Pattern: Regular 10-23-2020 07:39-0400 Pulse Oximetry 100 % Deanna Aponte [facility]; [facility] Work Phone: Comment on above: Room air 10-23-2020 07:39-0400 Respiratory Rate 16 /min Chuck Schmitt LPN [facility]; [facility] Work Phone: Comment on above: Pattern: Unlabored 10-23-2020 07:39-0400 SaO2% (BldA) [Mass fraction] 100 % Chuck Schmitt LPN [facility]; [facility] Work Phone: Comment on above: Room air 07-23-2020 08:07-0500 BMI (Body Mass Index) 26.33 kg/m2 Kacy Lewis LPN [facility]; [facility] Work Phone: 07-23-2020 08:07-0500 Body Temperature 97.2 [degF] Kacy Lewis LPN [facility]; [facility] Work Phone: 07-23-2020 08:07-0500 Body weight 63.22 kg Kacy Lewis LPN [facility]; [facility] Work Phone: 07-23-2020 08:07-0500 BP Diastolic 82 mm[Hg] Kacy Lewis LPN [facility]; [facility] Work Phone: Comment on above: Patient Position: Sitting; Cuff Location : Left Arm; Cuff Size: Standard 07-23-2020 08:07-0500 BP Systolic 124 mm[Hg] Kacy Slarb [employer] [facility]; [facility] Work Phone: Comment on above: Patient Position: Sitting; Cuff Location : Left Arm; Cuff Size: Standard 07-23-2020 08:07-0500 BSA (Body Surface Area) 1.62 m2 Kacy Slarb [employer] [facility]; [facility] Work Phone: 07-23-2020 08:07-0500 Height 154.94 cm Kacy Slarb [employer] [facility]; [facility] Work Phone: 07-23-2020 08:07-0500 Pulse (Heart Rate) 72 /min Kcay Joanrb [employer] MACHINE [employer]TER [facility]; [facility] Work Phone: Comment on above: Pattern: Regular 07-23-2020 08:07-0500 Pulse Oximetry 99 % Deanna Aponte [facility]; [facility] Work Phone: Comment on above: Room air 07-23-2020 08:07-0500 Respiratory Rate 17 /min Kacy Slarb [employer] MACHINE SETTER [facility]; [facility] Work Phone: Comment on above: Pattern: Unlabored 07-23-2020 08:07-0500 SaO2% (BldA) [Mass fraction] 99 % Kacy Slarb [employer] MACHINE SETTER [facility]; [facility] Work Phone: Comment on above: Room air 02-23-2020 09:14-0400 BMI (Body Mass Index) 26.07 kg/m2 Nereida Philip [facility] Work Phone: Comment on above: no vitals due to covid this is phone enc ounter 02-23-2020 09:14-0400 Body weight 62.6 kg Nereida Philip [facility] Work Phone: Comment on above: no vitals due to covid this is phone enc ounter 02-23-2020 09:14-0400 BSA (Body Surface Area) 1.61 m2 Nereida Philip [facility] Work Phone: Comment on above: no vitals due to covid this is phone enc ounter 02-23-2020 09:14-0400 Height 154.94 cm Nereida Philip [employer] [facility] Work Phone: Comment on above: no vitals due to covid this is phone enc ounter 01-18-2020 08:31-0400 BMI (Body Mass Index) 0.18 kg/m2 Deanna Fatmata DO Work Phone: [facility] Work Phone: Comment on above: virtual visit no other vitals available 01-18-2020 08:31-0400 Body weight 62.6 kg Deanna Fatmata DO Work Phone: [facility] Work Phone: Comment on above: virtual visit no other vitals available 01-18-2020 08:31-0400 BP Diastolic 66 mm[Hg] Deanna Fatmata DO Work Phone: [facility] Work Phone: Comment on above: Patient Position: Sitting virtual visit no oth er vitals available 01-18-2020 08:31-0400 BP Systolic 117 mm[Hg] Deanna Fatmata DO Work Phone: [facility] Work Phone: Comment on above: Patient Position: Sitting virtual visit no oth er vitals available 01-18-2020 08:31-0400 BSA (Body Surface Area) 9.78 m2 Deanna Fatmata DO Work Phone: [facility] Work Phone: Comment on above: virtual visit no other vitals available 01-18-2020 08:31-0400 Height 1859.28 cm Deanna Fatmata DO Work Phone: [facility] Work Phone: Comment on above: virtual visit no other vitals available 07-18-2019 08:14-0500 BMI (Body Mass Index) 26.12 kg/m2 Tracey Salomon LPN [facility] Work Phone: 07-18-2019 08:14-0500 Body Temperature 97.2 [degF] Tracey Salomon LPN [facility] Work Phone: Comment on above: Method: Temporal 07-18-2019 08:14-0500 Body weight 62.71 kg Tracey Salomon LPN [facility] Work Phone: 07-18-2019 08:14-0500 BP Diastolic 70 mm[Hg] Tracey Salomon LPN [facility] Work Phone: Comment on above: Patient Position: Sitting; Cuff Location : Left Arm; Cuff Size: Standard 07-18-2019 08:14-0500 BP Systolic 122 mm[Hg] Tracey Salomon LPN [facility] Work Phone: Comment on above: Patient Position: Sitting; Cuff Location : Left Arm; Cuff Size: Standard 07-18-2019 08:14-0500 BSA (Body Surface Area) 1.61 m2 Tracey Salomon LPN [facility] Work Phone: 07-18-2019 08:14-0500 Height 154.94 cm Tracey Salomon LPN [facility] Work Phone: 07-18-2019 08:14-0500 Pulse (Heart Rate) 74 /min Tracey Salomon LPN [facility] Internal Medicine Work Phone: Comment on above: Pattern: Regular 07-18-2019 08:14-0500 Pulse Oximetry 99 % Deanna Aponte [facility] Work Phone: Comment on above: Room air 07-18-2019 08:14-0500 Respiratory Rate 16 /min Tracey Salomon LPN [facility] Work Phone: Comment on above: Pattern: Unlabored 07-18-2019 08:14-0500 SaO2% (BldA) [Mass fraction] 99 % Tracey Salomon LPN [facility]; [facility] Work Phone: Comment on above: Room air 05-09-2019 12:06-0400 BMI (Body Mass Index) 26.55 kg/m2 Maggi Tena RN [facility] Work Phone: 05-09-2019 12:06-0400 Body Temperature 98.5 [degF] Maggi Tena RN [facility] Work Phone: Comment on above: Method: Temporal 05-09-2019 12:06-0400 Body weight 63.73 kg Maggi Tena RN [facility] Work Phone: 05-09-2019 12:06-0400 BP Diastolic 68 mm[Hg] Maggi Tena RN [facility] Work Phone: Comment on above: Patient Position: Sitting; Cuff Location : Left Arm; Cuff Size: Small 05-09-2019 12:06-0400 BP Systolic 122 mm[Hg] Maggi Tena RN [facility] Work Phone: Comment on above: Patient Position: Sitting; Cuff Location : Left Arm; Cuff Size: Small 05-09-2019 12:06-0400 BSA (Body Surface Area) 1.63 m2 Maggi Tena RN [facility] Work Phone: 05-09-2019 12:06-0400 Height 154.94 cm Maggi Tena RN [facility] Work Phone: 05-09-2019 12:06-0400 Pulse (Heart Rate) 64 /min Maggi Tena RN [facility] Work Phone: Comment on above: Pattern: Regular 05-09-2019 12:06-0400 Pulse Oximetry 97 % Deanna Aponte [facility] Work Phone: Comment on above: Room air 05-09-2019 12:06-0400 Respiratory Rate 16 /min Maggi Tena RN [facility] Work Phone: Comment on above: Pattern: Unlabored 05-09-2019 12:06-0400 SaO2% (BldA) [Mass fraction] 97 % Maggi Tena RN [facility]; [facility] Work Phone: Comment on above: Room air 04-18-2019 13:23-0400 BMI (Body Mass Index) 26.85 kg/m2 Guadalupepreet Bender [facility] Work Phone: 04-18-2019 13:23-0400 Body weight 64.47 kg Guadalupepreet Bender [facility] Work Phone: 04-18-2019 13:23-0400 BP Diastolic 76 mm[Hg] GuadalupeAvocado™ [facility] Work Phone: Comment on above: Patient Position: Sitting; Cuff Location : Left Arm; Cuff Size: Standard 04-18-2019 13:23-0400 BP Systolic 120 mm[Hg] GuadalupeAvocado™ [facility] Work Phone: Comment on above: Patient Position: Sitting; Cuff Location : Left Arm; Cuff Size: Standard 04-18-2019 13:23-0400 BSA (Body Surface Area) 1.63 m2 GuadalupeAvocado™ [facility] Work Phone: 04-18-2019 13:23-0400 Height 154.94 cm GuadalupeAvocado™ [facility] Work Phone: 04-18-2019 13:23-0400 Pulse (Heart Rate) 94 /min GuadalupeAvocado™ [facility] Work Phone: Comment on above: Pattern: Regular 04-18-2019 13:23-0400 Pulse Oximetry 98 % Deanna Aponte [facility] Work Phone: Comment on above: Room air 04-18-2019 13:23-0400 Respiratory Rate 16 /min GuadalupeAvocado™ [facility] Work Phone: Comment on above: Pattern: Unlabored 04-18-2019 13:23-0400 SaO2% (BldA) [Mass fraction] 98 % GuadalupeAvocado™ [facility]; [facility] Work Phone: Comment on above: Room air 03-03-2019 07:57-0400 BMI (Body Mass Index) 27.07 kg/m2 Maggi Tena RN [facility] Work Phone: Comment on above: hearing wnlDr. Jluis Pacheco and had gkaucoma test done 03-03-2019 07:57-0400 Body Temperature 99.1 [degF] Maggi Tena RN [facility] Work Phone: Comment on above: Method: Temporal hearing wnlDr. Jluis Guo ath and had gkaucoma test done 03-03-2019 07:57-0400 Body weight 64.98 kg Maggi Tena RN [facility] Work Phone: Comment on above: hearing wnlDr. Jluis Pacheco and had gkaucoma test done 03-03-2019 07:57-0400 BP Diastolic 76 mm[Hg] Maggi Tena RN [facility] Work Phone: Comment on above: Patient Position: Sitting; Cuff Location : Left Arm; Cuff Size: Large hearing wnlDr. Jluis R ath and had gkaucoma test done 03-03-2019 07:57-0400 BP Systolic 124 mm[Hg] Maggi Tena RN [facility] Work Phone: Comment on above: Patient Position: Sitting; Cuff Location : Left Arm; Cuff Size: Large hearing wnlDr. Jluis R ath and had gkaucoma test done 03-03-2019 07:57-0400 BSA (Body Surface Area) 1.64 m2 Maggi Tena RN [facility] Work Phone: Comment on above: hearing wnlDr. Jluis Pacheco and had gkaucoma test done 03-03-2019 07:57-0400 Height 154.94 cm Maggi Tena RN [facility] Work Phone: Comment on above: hearing wnlDr. Jluis Pacheco and had gkaucoma test done 03-03-2019 07:57-0400 Pulse (Heart Rate) 88 /min Maggi Tena RN [facility] Work Phone: Comment on above: Pattern: Regular hearing wnlDr. Jluis R ath and had gkaucoma test done 03-03-2019 07:57-0400 Pulse Oximetry 96 % Deanna Aponte [facility] Work Phone: Comment on above: Room air hearing wnlDr. Jluis R ath and had gkaucoma test done 03-03-2019 07:57-0400 Respiratory Rate 16 /min Maggi Tena RN [facility] Work Phone: Comment on above: Pattern: Unlabored hearing wnlDr. Jluis R ath and had gkaucoma test done 03-03-2019 07:57-0400 SaO2% (BldA) [Mass fraction] 96 % Maggi Tena RN [facility]; [facility] Work Phone: Comment on above: Room air hearing wnlDr. Jluis R ath and had gkaucoma test done 01-17-2019 08:08-0400 BMI (Body Mass Index) 28.55 kg/m2 Nereida Philip [facility] Work Phone: 01-17-2019 08:08-0400 Body Temperature 97.2 [degF] Nereida Philip [facility] Work Phone: Comment on above: Method: Temporal 01-17-2019 08:08-0400 Body weight 68.55 kg Nereida Philip [facility] Work Phone: 01-17-2019 08:08-0400 BP Diastolic 68 mm[Hg] Nereida Philip [facility] Work Phone: Comment on above: Patient Position: Sitting; Cuff Location : Left Arm; Cuff Size: Standard 01-17-2019 08:08-0400 BP Systolic 104 mm[Hg] Nereida Philip [facility] Work Phone: Comment on above: Patient Position: Sitting; Cuff Location : Left Arm; Cuff Size: Standard 01-17-2019 08:08-0400 BSA (Body Surface Area) 1.68 m2 Nereida Philip [facility] Work Phone: 01-17-2019 08:08-0400 Height 154.94 cm Nereida Philip [facility] Work Phone: 01-17-2019 08:08-0400 Pulse (Heart Rate) 68 /min Nereida Philip [facility] Work Phone: Comment on above: Pattern: Regular 01-17-2019 08:08-0400 Pulse Oximetry 98 % Deanna Aponte [facility] Work Phone: Comment on above: Room air 01-17-2019 08:08-0400 Respiratory Rate 18 /min Nereida Philip [facility] Work Phone: Comment on above: Pattern: Unlabored 01-17-2019 08:08-0400 SaO2% (BldA) [Mass fraction] 98 % Nereida Philip CMA [facility]; [facility] Work Phone: Comment on above: Room air 01-17-2019 08:08-0400 Weight 68.55 kg Deanna Aponte [facility] Work Phone: 07-15-2018 07:04-0500 BMI (Body Mass Index) 29.69 kg/m2 Maggi Tena RN [facility] Work Phone: 07-15-2018 07:04-0500 Body weight 71.27 kg Maggi Tena RN [facility] Work Phone: 07-15-2018 07:04-0500 BP Diastolic 76 mm[Hg] Maggi Tena RN [facility] Work Phone: Comment on above: Patient Position: Sitting; Cuff Location : Left Arm; Cuff Size: Standard 07-15-2018 07:04-0500 BP Systolic 128 mm[Hg] Maggi Tena RN [facility] Work Phone: Comment on above: Patient Position: Sitting; Cuff Location : Left Arm; Cuff Size: Standard 07-15-2018 07:04-0500 BSA (Body Surface Area) 1.71 m2 Maggi Tena RN [facility] Work Phone: 07-15-2018 07:04-0500 Height 154.94 cm Maggi Tena RN [facility] Work Phone: 07-15-2018 07:04-0500 Pulse (Heart Rate) 70 /min Maggi Tena RN [facility] Work Phone: Comment on above: Pattern: Regular 07-15-2018 07:04-0500 Pulse Oximetry 99 % Deanna Aponte [facility] Work Phone: Comment on above: Room air 07-15-2018 07:04-0500 Respiratory Rate 18 /min Maggi Tena RN [facility] Work Phone: Comment on above: Pattern: Unlabored 07-15-2018 07:04-0500 SaO2% (BldA) [Mass fraction] 99 % Maggi Tena RN [facility]; [facility] Work Phone: Comment on above: Room air 07-15-2018 07:04-0500 Weight 71.27 kg Deanna Aponte [facility] Work Phone: 02-01-2018 12:08-0400 BMI (Body Mass Index) 30.14 kg/m2 Maggi Tena RN [facility] Work Phone: 02-01-2018 12:08-0400 Body weight 72.35 kg Maggi Tena RN [facility] Work Phone: 02-01-2018 12:08-0400 BP Diastolic 78 mm[Hg] Maggi Tena RN [facility] Work Phone: Comment on above: Patient Position: Sitting; Cuff Location : Left Arm; Cuff Size: Large 02-01-2018 12:08-0400 BP Systolic 142 mm[Hg] Maggi Tena RN [facility] Work Phone: Comment on above: Patient Position: Sitting; Cuff Location : Left Arm; Cuff Size: Large 02-01-2018 12:08-0400 BSA (Body Surface Area) 1.72 m2 Maggi Tena RN [facility] Work Phone: 02-01-2018 12:08-0400 Height 154.94 cm Maggi Tena RN [facility] Work Phone: 02-01-2018 12:08-0400 Pulse (Heart Rate) 70 /min Maggi Tena RN [facility] Work Phone: Comment on above: Pattern: Regular 02-01-2018 12:08-0400 Pulse Oximetry 97 % Deanna Aponte [facility] Work Phone: Comment on above: Room air 02-01-2018 12:08-0400 Respiratory Rate 16 /min Maggi Tena RN [facility] Work Phone: Comment on above: Pattern: Unlabored 02-01-2018 12:08-0400 SaO2% (BldA) [Mass fraction] 97 % Maggi Tena RN [facility]; [facility] Work Phone: Comment on above: Room air 02-01-2018 12:08-0400 Weight 72.35 kg Deanna Aponte [facility] Work Phone: 12-31-2017 10:46-0400 BMI (Body Mass Index) 30.66 kg/m2 Patti Oskar [facility] Work Phone: 12-31-2017 10:46-0400 Body weight 73.6 kg Patti Oskar [facility] Work Phone: 12-31-2017 10:46-0400 BP Diastolic 82 mm[Hg] Patti Oskar [facility] Work Phone: Comment on above: Patient Position: Sitting; Cuff Location : Left Arm; Cuff Size: Standard 12-31-2017 10:46-0400 BP Systolic 140 mm[Hg] Patti Oskar [facility] Work Phone: Comment on above: Patient Position: Sitting; Cuff Location : Left Arm; Cuff Size: Standard 12-31-2017 10:46-0400 BSA (Body Surface Area) 1.73 m2 Patti Oskar [facility] Work Phone: 12-31-2017 10:46-0400 Height 154.94 cm Patti Oskar [facility] Work Phone: 12-31-2017 10:46-0400 Pulse (Heart Rate) 70 /min Patti Oskar [facility] Work Phone: Comment on above: Pattern: Regular 12-31-2017 10:46-0400 Pulse Oximetry 98 % Deanna Aponte [facility] Work Phone: Comment on above: Room air 12-31-2017 10:46-0400 Respiratory Rate 18 /min Patti Oskar [facility] Work Phone: Comment on above: Pattern: Unlabored 12-31-2017 10:46-0400 SaO2% (BldA) [Mass fraction] 98 % Patti Schmitt [facility]; [facility] Work Phone: Comment on above: Room air 12-31-2017 10:46-0400 Weight 73.6 kg Deanna Aponte [facility] Work Phone: 09-15-2017 11:40-0500 BMI (Body Mass Index) 30.8 kg/m2 Maggi Tena RN [facility] Work Phone: 09-15-2017 11:40-0500 Body weight 73.94 kg Maggi Tena RN [facility] Work Phone: 09-15-2017 11:40-0500 BP Diastolic 72 mm[Hg] Maggi Tena RN [facility] Work Phone: Comment on above: Patient Position: Sitting; Cuff Location : Left Arm; Cuff Size: Large 09-15-2017 11:40-0500 BP Systolic 148 mm[Hg] Maggi Tena RN [facility] Work Phone: Comment on above: Patient Position: Sitting; Cuff Location : Left Arm; Cuff Size: Large 09-15-2017 11:40-0500 BSA (Body Surface Area) 1.73 m2 Maggi Tena RN [facility] Work Phone: 09-15-2017 11:40-0500 Height 154.94 cm Maggi Tena RN [facility] Work Phone: 09-15-2017 11:40-0500 Pulse (Heart Rate) 62 /min Maggi Tena RN [facility] Work Phone: Comment on above: Pattern: Regular 09-15-2017 11:40-0500 Pulse Oximetry 99 % Deanna Aponte [facility] Work Phone: Comment on above: Room air 09-15-2017 11:40-0500 Respiratory Rate 18 /min Maggi Tena RN [facility] Work Phone: Comment on above: Pattern: Unlabored 09-15-2017 11:40-0500 SaO2% (BldA) [Mass fraction] 99 % Maggi Tena RN [facility]; [facility] Work Phone: Comment on above: Room air 09-15-2017 11:40-0500 Weight 73.94 kg Deanna Huertaon [facility] Work Phone: 09-04-2017 08:55-0500 BMI (Body Mass Index) 30.8 kg/m2 Maggi Tena RN [facility] Work Phone: 09-04-2017 08:55-0500 Body weight 73.94 kg Maggi Tena RN [facility] Work Phone: 09-04-2017 08:55-0500 BP Diastolic 80 mm[Hg] Maggi Tena RN [facility] Work Phone: Comment on above: Patient Position: Sitting; Cuff Location : Left Arm; Cuff Size: Large 09-04-2017 08:55-0500 BP Systolic 120 mm[Hg] Maggi Tena RN [facility] Work Phone: Comment on above: Patient Position: Sitting; Cuff Location : Left Arm; Cuff Size: Large 09-04-2017 08:55-0500 BSA (Body Surface Area) 1.73 m2 Maggi Tena RN [facility] Work Phone: 09-04-2017 08:55-0500 Height 154.94 cm Maggi Tena RN [facility] Work Phone: 09-04-2017 08:55-0500 Pulse (Heart Rate) 77 /min Maggi Tena RN [facility] Work Phone: Comment on above: Pattern: Regular 09-04-2017 08:55-0500 Pulse Oximetry 98 % Deanna Aponte [facility] Work Phone: Comment on above: Room air 09-04-2017 08:55-0500 Respiratory Rate 18 /min Maggi Tena RN [facility] Work Phone: Comment on above: Pattern: Unlabored 09-04-2017 08:55-0500 SaO2% (BldA) [Mass fraction] 98 % Maggi Tena RN [facility]; [facility] Work Phone: Comment on above: Room air 09-04-2017 08:55-0500 Weight 73.94 kg Deanna Aponte [facility] Work Phone: Encounters Encounter Date Encounter Type Care Provider Facility Start: 05-17-2025 End: 05-17-2025 ambulatory Deanna Aponte Facility:[facility] Start: 05-11-2025 End: 05-11-2025 ambulatory Deanna Aponte Facility:[facility] Start: 03-06-2025 End: 03-06-[address] Deanna Aponte DO Work Phone: -[facility] Start: 03-06-2025 End: 03-06-2025 Patient encounter procedure Shruti Dorothy [employer] -[facility] Work Phone: Start: 03-06-2025 End: 03-06-2025 ambulatory Shruti De La Cruz [employer] Facility:[facility] Start: 02-22-2025 End: 02-22-2025 Patient encounter procedure Shruti De La Cruz [employer] -[facility] Work Phone: Start: 02-22-2025 End: 02-22-[address] Deanna Aponte DO Work Phone: -[facility] Start: 11-23-2024 End: 11-23-2024 Patient encounter procedure Yanira Garcia MD Work Phone: Orthopaedics Comment on above: Status post total ri ght knee replacement Start: 11-23-2024 End: 11-23-2024 ambulatory UNKNOWN PROVIDER Facility:[facility] Start: 11-23-2024 End: 11-23-2024 Subsequent hospital visit by physician [facility] Work Phone: Radiology Comment on above: Aftercare following right knee joint replacement surgery [Z47.1, Z96.651] Start: 11-14-2024 End: 11-14-2024 Orders Only Yanira Garcia MD Work Phone: Orthopaedics Comment on above: Aftercare following right knee joint replacement surgery (Primary Dx) Start: 09-27-2024 Encounter for gynecological examination (general) (routine) without abnormal findings Shruti De La Cruz [employer] [facility] Start: 09-06-2024 End: 09-06-2024 ambulatory Shruti De La Cruz [employer] Facility:[facility] Start: 09-06-2024 End: 09-06-2024 ambulatory Shruti De La Cruz [employer] Facility:[facility] Start: 08-05-2024 End: 08-05-2024 ambulatory DEANNA APONTE Facility:[id number] Start: 08-05-2024 End: 08-05-2024 Office outpatient visit 15 minutes Casey Garcia MD Work Phone: [facility] Comment on above: Bacterial sinusitis (Primary Dx) Start: 05-25-2024 End: 05-25-2024 ambulatory YANIRA GARCIA Facility:[facility] Start: 05-25-2024 End: 05-25-2024 Patient encounter procedure Yanira Garcia MD Work Phone: Orthopaedics Comment on above: Aftercare following right knee joint replacement surgery (Primary Dx) Start: 01-22-2024 End: 01-22-2024 Patient encounter procedure Yanira Garcia MD Work Phone: Orthopaedics Comment on above: S/P revision of tota l knee, right (Primary Dx) Start: 01-22-2024 End: 01-22-2024 ambulatory Kemal Aldrich PT Work Phone: [facility] Comment on above: Chronic pain of righ t knee (Primary Dx); Muscle weakness (generalized); S/P revision of total knee, right; Localized edema Start: 01-19-2024 End: 01-19-2024 ambulatory Drake Paige VARIETY PERFORMER Work Phone: [facility] Comment on above: Chronic pain of righ t knee (Primary Dx); Muscle weakness (generalized) Start: 01-08-2024 End: 01-08-2024 ambulatory [facility] Comment on above: Chronic pain of righ t knee (Primary Dx); Muscle weakness (generalized); S/P revision of total knee, right; Localized edema Start: 01-05-2024 End: 01-05-2024 ambulatory Drake Paige VARIETY PERFORMER Work Phone: [facility] Comment on above: Chronic pain of righ t knee (Primary Dx); Muscle weakness (generalized) Start: 01-01-2024 End: 01-01-2024 ambulatory Madelaine Dickson PTA [facility] Comment on above: Chronic pain of righ t knee (Primary Dx); Muscle weakness (generalized) Start: 12-29-2023 End: 12-29-2023 ambulatory Drake Paige VARIETY PERFORMER Work Phone: [facility] Comment on above: Chronic pain of righ t knee (Primary Dx); Muscle weakness (generalized) Start: 12-24-2023 Refill Royce Montejo Work Phone: Orthopaedics Comment on above: Med Change Request Start: 12-18-2023 End: 12-18-2023 Patient encounter procedure Royce Peterson PA-C Work Phone: Orthopaedics Comment on above: S/P revision of tota l knee, right (Primary Dx) Start: 12-18-2023 End: 12-18-2023 Subsequent hospital visit by physician [facility] Work Phone: Radiology Comment on above: Right knee pain, uns pecified chronicity [M25.561] Start: 12-18-2023 End: 12-18-2023 ambulatory Martita Mascorro PT [facility] Comment on above: Chronic pain of righ t knee (Primary Dx); Muscle weakness (generalized); S/P revision of total knee, right Start: 12-17-2023 End: 12-17-2023 Home visit Candace Raymundo PT Work Phone: [facility] Comment on above: PT AGENCY DC W VISIT Start: 12-15-2023 Telephone encounter Candace garrido PT Work Phone: [facility] Comment on above: Home Care (Discharge planning) Start: 12-15-2023 End: 12-15-2023 Home visit Candace Raymundo PT Work Phone: [facility] Comment on above: PT ROUTINE Start: 12-11-2023 Telephone encounter Candace garrido PT Work Phone: [facility] Comment on above: Home Care (Lymph nod e) Start: 12-11-2023 End: 12-11-2023 Home visit Candace Raymundo PT Work Phone: [facility] Comment on above: PT ROUTINE Start: 12-10-2023 End: 12-10-2023 Home visit Candace Raymundo PT Work Phone: [facility] Comment on above: PT ROUTINE Start: 12-08-2023 End: 12-08-2023 Home visit Candace Raymundo PT Work Phone: [facility] Comment on above: PT CASE MANAGEMENT V ISIT Start: 12-08-2023 Telephone encounter Candace garrido PT Work Phone: [facility] Comment on above: Home Care (Vitals) Start: 12-05-2023 End: 12-05-2023 Home visit Gema Cummins PT Work Phone: [facility] Comment on above: PT SOC Start: 12-04-2023 Telephone encounter Deanna Aponte DO Work Phone: [facility] Comment on above: Home Care (PT SOC Co nfirmation Call) Home Care (Start of care scheduling) Home Care (Confirmat ion Call) Start: 12-03-2023 End: 12-04-2023 Evaluation and management of inpatient YANIRA GARCIA Facility:[facility] Start: 11-15-2023 Admission to [facility] Vidal Schmitt PA-C Work Phone: Orthopaedics Comment on above: Preparation for surg jeff Start: 11-15-2023 ambulatory Vidal Schmitt PA-C Work Phone: Orthopaedics Start: 11-13-2023 Telephone encounter Lalitha SAUCEDA Work Phone: Pre Anesthesia Comment on above: Pre-Op Update (Abnor mal PACC labs) Start: 11-13-2023 End: 11-13-2023 ambulatory LALITHA THOMAS Facility:[id number] Start: 11-13-2023 Encounter for other preprocedural examination [facility] Start: 11-12-2023 End: 11-12-[address]23 [address] [facility] Start: 11-12-2023 End: 11-12-2023 ambulatory Pac 1 Pre Anesthesia Comment on above: Pre-op evaluation (P rimary Dx); Abnormal finding of blood chemistry, unspecified; Essential hypertension; Other hyperlipidemia; Mild intermittent asthma without complication; Acquired hypothyroidism Start: 11-12-2023 End: 11-12-2023 Preprocedural examination done Pac 1 [facility] Work Phone: Start: 09-25-2023 Orders Only Yanira kimbrough MD Work Phone: Orthopaedics Comment on above: Mechanical loosening of prosthetic knee, subsequent encounter (Primary Dx); Pain due to internal orthopedic prosthetic devices, implants and grafts, initial encounter (HCC) Start: 09-25-2023 End: 09-25-2023 Office outpatient visit 15 minutes Vidal Schmitt PA-C Work Phone: Orthopaedics Comment on above: Status post total ri ght knee replacement (Primary Dx); Pain due to total right knee replacement, initial encounter ([facility]); Mechanical loosening of prosthetic knee, subsequent encounter Start: 09-16-2023 ambulatory Mark Ayala RT(R) [facility] Comment on above: Radiology [place] Start: 09-16-2023 Patient encounter procedure Markconrad Ayala RT(R) [facility] Start: 09-16-2023 End: 09-16-2023 Subsequent hospital visit by physician Jatin [facility] 1 Work Phone: Nuclear Medicine Comment on above: Pain due to internal orthopedic prosthetic devices, implants and grafts, initial encounter ([facility]) [T84.84XA] Start: 09-16-2023 End: 09-16-2023 Subsequent hospital visit by physician Jatin Injection [facility] 1 Work Phone: Nuclear Medicine Comment on above: Pain due to internal orthopedic prosthetic devices, implants and grafts, initial encounter ([facility]) [T84.84XA] Start: 09-04-2023 End: 09-04-2023 Office outpatient visit 25 minutes Vidal Schmitt PA-C Work Phone: Orthopaedics Comment on above: Pain due to total ri ght knee replacement, initial encounter (HCC) (Primary Dx); Status post total right knee replacement; Pain due to internal orthopedic prosthetic devices, implants and grafts, initial encounter ([facility]); Effusion, right knee Start: 09-04-2023 End: 09-04-2023 Subsequent hospital visit by physician Radio [facility] Work Phone: Radiology Comment on above: Right knee pain, uns pecified chronicity [M25.561] Start: 09-02-2023 End: 09-02-[address] Deanna Aponte Work Phone: [facility] Work Phone: Start: 09-02-2023 End: 09-02-[address] Deanna Aponte Work Phone: [facility] Work Phone: Start: 04-13-2023 End: 04-13-2023 Patient encounter procedure Wilbur Metz LPN [facility] Start: 04-13-2023 Review Deanna bustillo DO Work Phone: [facility] Start: 04-02-2023 End: 04-02-2023 Annotation/Addendum Deanna Aponte DO Work Phone: [facility] Start: 04-02-2023 Review Deanna bustillo DO Work Phone: [facility] Start: 03-09-2023 End: 03-09-2023 Office outpatient visit 25 minutes Vidal Schmitt PA-C Work Phone: Orthopaedics Comment on above: S/P revision of tota l knee, right (Primary Dx); Osteophyte of right knee Start: 03-09-2023 End: 03-09-2023 Subsequent hospital visit by physician Eons [facility] Work Phone: Radiology Comment on above: S/P revision of tota l knee, right [Z96.651] Start: 12-28-2022 End: 12-28-2022 Office outpatient new 20 minutes Casey Garcia MD Work Phone: [facility] Comment on above: Submandibular lympha denitis (Primary Dx) Start: 12-12-2022 End: 12-12-2022 Patient encounter procedure Yanira Garcia MD Work Phone: Orthopaedics Comment on above: S/P revision of tota l knee, right (Primary Dx) Start: 11-05-2022 End: 11-05-2022 Annotation/Addendum Deanna Aponte DO Work Phone: [facility] Start: 10-16-2022 End: 10-16-[address] Deanna Aponte Work Phone: [facility] Work Phone: Start: 10-16-2022 End: 10-16-[address] Deanna Aponte Work Phone: [facility]-Laboratory, Specimen Start: 10-15-2022 End: 10-15-2022 Lab Order Daenna Aponte DO Work Phone: [facility] Start: 10-08-2022 ambulatory Deanna Aponte DO [facility] Start: 10-08-2022 End: 10-08-2022 Office outpatient visit 25 minutes Deanna Aponte DO Work Phone: [facility] Start: 10-08-2022 Review Deanna Strickland n DO Work Phone: [facility] Start: 09-12-2022 End: 09-12-2022 Phone Encounter Deanna Aponte DO Work Phone: [facility] Start: 09-10-2022 End: 09-10-[address] Deanna Aponte Work Phone: [facility] Radiology Start: 09-10-2022 End: 09-10-2022 Office outpatient visit 25 minutes Deanna Aponte DO Work Phone: [facility] Start: 09-10-2022 Review Deanna bustillo DO Work Phone: [facility] Start: 09-01-2022 End: 02-06-[address] Deanna Aponte Work Phone: [facility] Start: 08-13-2022 End: 08-13-2022 Phone Encounter Deanna Aponte DO Work Phone: [facility] Start: 08-13-2022 ambulatory Vidal Schmitt PA-C Work Phone: Orthopaedics Comment on above: Positive Covid test Start: 07-07-2022 End: 07-07-2022 Office outpatient visit 15 minutes Deanna Aponte DO Work Phone: [facility] Start: 07-07-2022 End: 07-07-2022 ambulatory [facility] Work Phone: Start: 07-07-2022 End: 07-07-2022 Patient encounter procedure [facility]-Outpatient Breast Imaging Start: 06-27-2022 End: 06-27-2022 Home visit Divya Solomon RN Work Phone: [facility] Comment on above: SN AGENCY DC W VISIT IV Start: 06-24-2022 Home visit Mercedes morris RN Work Phone: [facility] Comment on above: CARE COORDINATION Start: 06-23-2022 End: 06-23-2022 Home visit Divya Solomon RN Work Phone: [facility] Comment on above: SN IV UP TO 90 MIN Start: 06-21-2022 End: 06-21-2022 Home visit Silvia Isaac RN Work Phone: [facility] Comment on above: SN IV PRN Start: 06-20-2022 Home visit Rosita Zaragoza RN Work Phone: [facility] Comment on above: CARE COORDINATION Start: 06-16-2022 End: 06-16-2022 Home visit Divya Solomon RN Work Phone: [facility] Comment on above: SN IV UP TO 90 MIN Start: 06-12-2022 End: 06-12-2022 Home visit Divya Solomon RN Work Phone: [facility] Comment on above: SN IV PRN Start: 06-10-2022 Home visit Guadalupe Guadalupe RN [facility] Comment on above: CARE COORDINATION Start: 06-09-2022 End: 06-09-2022 Home visit Concepcion Frederick RN Work Phone: [facility] Comment on above: SN IV UP TO 90 MIN Start: 06-03-2022 Home visit Guadalupe Guadalupe RN [facility] Care Comment on above: CARE COORDINATION Start: 06-02-2022 End: 06-02-2022 Home visit Divya Solomon RN Work Phone: [facility] Care Comment on above: SN IV UP TO 90 MIN Start: 05-30-2022 End: 05-30-2022 Patient encounter procedure Vidal Schmitt PA-C Work Phone: Orthopaedics Comment on above: Pain due to internal orthopedic prosthetic devices, implants and grafts, initial encounter ([facility]) (Primary Dx); S/P revision of total knee, right Start: 05-30-2022 End: 05-30-2022 Subsequent hospital visit by physician [facility] Work Phone: Radiology Comment on above: Right knee pain, uns pecified chronicity [M25.561] Start: 05-29-2022 End: 05-29-2022 Home visit Irene Badillo RN Work Phone: [facility] Comment on above: SN IV PRN Start: 05-28-2022 Orders Only Dante Grimaldo MD Work Phone: PA Provider Adult Start: 05-27-2022 Home visit Rosita Zaragoza RN Work Phone: [facility] Comment on above: CARE COORDINATION Start: 05-26-2022 End: 05-26-2022 Home visit Divya Solomon RN Work Phone: [facility] Comment on above: SN IV UP TO 90 MIN Start: 05-23-2022 Home visit Mercedes morris RN Work Phone: [facility] Comment on above: CARE COORDINATION Refill Request Start: 05-22-2022 Orders Only Yanira kimbrough MD Work Phone: PA Provider Adult Start: 05-21-2022 End: 05-21-2022 Orders Only Vidal Schmitt PA-C Work Phone: Orthopaedics Comment on above: Right knee pain, uns pecified chronicity (Primary Dx) SN IV UP TO 90 MIN Start: 05-20-2022 End: 05-20-2022 Home visit Rosita Zaragoza RN Work Phone: [facility] Comment on above: CARE COORDINATION SN IV UP TO 90 MIN PT EVAL Start: 05-20-2022 Telephone encounter Yanira Garcia MD Work Phone: Orthopedics Comment on above: Patient Question Home Care Refill Request Start: 05-19-2022 End: 05-19-2022 Home visit Divya Solomon RN Work Phone: [facility] Comment on above: SN IV UP TO 90 MIN SN IV PRN CHIEF ENGINEER Start: 05-18-2022 Telephone encounter Evelia Carvajal [facility] Comment on above: PostOp Follow-up Start: 05-18-2022 End: 05-18-2022 Home visit Irene Badillo RN Work Phone: [facility] Comment on above: SN SOC IV SN IV CHIEF ENGINEER UP TO 90 MIN Start: 05-16-2022 ambulatory Dante Grimaldo MD Work Phone: PA Provider Adult Comment on above: CoPat Start Start: 05-16-2022 Telephone encounter Stefanie tellez LPN Work Phone: [facility] Comment on above: Home Care (MD javier esteban ) Start: 05-09-2022 Orders Only Yanira kimbrough MD Work Phone: Orthopaedics Comment on above: Pain due to internal orthopedic prosthetic devices, implants and grafts, initial encounter ([facility]) (Primary Dx); Pain due to total right knee replacement, initial encounter ([facility]) Patient Update Start: 05-07-2022 End: 05-07-2022 Office outpatient visit 5 minutes Deanna Fatmata DO Work Phone: [facility] Start: 05-01-2022 End: 05-01-2022 Patient encounter procedure Vidal Schmitt PA-C Work Phone: Orthopaedics Comment on above: Pain due to internal orthopedic prosthetic devices, implants and grafts, initial encounter ([facility]) (Primary Dx); Pain due to total right knee replacement, initial encounter ([facility]) Start: 04-28-2022 Telephone encounter Xavier River MD Work Phone: Orthopaedics Comment on above: Patient Question; Ap pointment Start: 04-17-2022 End: 04-17-2022 Office outpatient visit 10 minutes Deanna Fatmata DO Work Phone: [facility] Start: 04-09-2022 End: 04-09-2022 Patient encounter procedure [facility]Outpatient Bone Densitometry Start: 02-26-2022 End: 02-26-2022 Patient encounter procedure Nereida Philip CMA [facility]; [facility] Work Phone: Start: 02-26-2022 End: 02-26-2022 Periodic preventive med est patient 65yrs& older Deanna Fatmata DO Work Phone: [facility] Start: 08-15-2021 End: 08-15-2021 Office outpatient visit 25 minutes Deanna Fatmata DO Work Phone: [facility] Start: 08-01-2021 End: 08-01-2021 Lab Order Deanna Fatmata DO Work Phone: [facility] Start: 02-13-2021 End: 02-13-2021 Office outpatient visit 25 minutes Deanna Fatmata DO Work Phone: [facility] Start: 01-09-2021 End: 01-09-2021 Annotation/Addendum Deanna Fatmata DO Work Phone: [facility] Start: 01-07-2021 End: 01-07-2021 Phone Encounter Deanna Aponte DO Work Phone: [facility] Start: 10-23-2020 End: 10-23-2020 Office outpatient visit 10 minutes Deanna Aponte [facility] Start: 07-23-2020 End: 07-23-2020 Patient encounter procedure Kacy Lewis MARRY [facility]; [facility] Work Phone: Start: 07-23-2020 End: 07-23-2020 Periodic preventive med est patient 65yrs& older Deanna Aponte [facility] Start: 07-23-2020 Review Deanna Aponte [facility] Start: 07-10-2020 End: 07-10-2020 Annotation/Addendum Deanna Aponte [facility] Start: 05-24-2020 End: 05-24-2020 Phone Encounter Deanna Blakely [facility] Start: 04-19-2020 End: 04-23-2020 Office outpatient visit 5 minutes Deanna Aponte [facility] Start: 04-19-2020 Review Deanna Aponte [facility] Start: 02-23-2020 End: 02-23-2020 Office outpatient visit 15 minutes Deanna Aponte [facility] Start: 01-18-2020 End: 01-18-2020 Office outpatient visit 25 minutes Deanna Aponte [facility] Start: 01-04-2020 End: 01-04-2020 Phone Encounter Deanna Blakely [employer] [facility] Start: 07-18-2019 End: 07-18-2019 Office outpatient visit 25 minutes Deanna Aponte [facility] Start: 05-09-2019 End: 05-09-2019 Office outpatient visit 15 minutes Deanna Aponte [facility] Start: 04-18-2019 End: 04-18-2019 Office outpatient visit 10 minutes Deanna Aponte [facility] Start: 03-24-2019 End: 03-24-2019 Office outpatient visit 5 minutes Deanna Aponte [facility] Start: 03-03-2019 End: 03-03-2019 Patient encounter procedure Deanna Aponte DO Work Phone: [facility] Start: 03-03-2019 End: 03-03-2019 Periodic preventive med est patient 65yrs& older Deanna Aponte [facility] Start: 01-17-2019 End: 01-17-2019 Office outpatient visit 15 minutes Deanna Aponte [facility] Start: 01-17-2019 Review Deanna Aponte [facility] Start: 12-03-2018 End: 12-03-2018 Office outpatient visit 5 minutes Deanna Blakely [facility] Start: 10-22-2018 End: 10-22-2018 Phone Encounter Deanna Fatmata [facility] [employer] [facility] Start: 09-24-2018 End: 09-24-2018 Phone Encounter Deanna Fatmata [facility] [employer] [employer] [facility] Start: 07-15-2018 End: 07-15-2018 Office outpatient visit 25 minutes Deanna Blakely [facility] Start: 02-01-2018 End: 02-01-2018 Office outpatient visit 25 minutes Deanna Blakely [facility] Start: 12-31-2017 End: 12-31-2017 Office outpatient visit 15 minutes Deanna Aponte [facility] Start: 11-23-2017 End: 11-23-2017 Annotation/Addendum Deanna Aponte [facility] [employer] [facility] Start: 10-26-2017 End: 10-26-2017 Phone Encounter Deanna Fatmata [facility] [employer] [facility] Start: 09-15-2017 End: 09-15-2017 Office outpatient visit 15 minutes Deanna Aponte [facility] Start: 09-04-2017 End: 09-04-2017 Office outpatient new 45 minutes Deanna Blakely [facility] Start: 06-10-2017 End: 06-11-2017 Ambulatory Gene Duarn Facility:[facility] Start: 02-10-2017 End: 02-11-2017 Ambulatory Ana Bacon Facility:[facility] Patient encounter procedure Chuck Schmitt LPN [facility]; [facility] Work Phone: Patient encounter procedure Tracey Salomon LPN [facility]; [facility] Work Phone: Patient encounter procedure Tracey Salomon LPN [facility]; [facility] Work Phone: Patient encounter procedure Dhiraj Hooper [facility] Work Phone: Patient encounter procedure Dhiraj Hooper [facility] Work Phone: Patient encounter procedure Dhiraj Hooper [facility] Work Phone: Patient encounter procedure Isha Zapata MA [facility]; [facility] Work Phone: Patient encounter procedure Deanna Aponte DO Work Phone: [facility]; [facility] Work Phone: Procedures Date Procedure Procedure Detail Performing Clinician Start: 03-06-[address] Deanna Aponte DO Work Phone: Start: 03-06-[address] Deanna Aponte DO Work Phone: Start: 12-18-2023 Radiologic examination knee 3 views Royce Peterson PA-C Work Phone: Start: 09-16-2023 Bone &/joint imaging 3 phase study Vidal Schmitt PA-C Work Phone: Start: 09-04-2023 Blood count complete auto&auto difrntl wbc Vidal SAUCEDA-C Work Phone: Start: 09-04-2023 C-reactive protein Vidal Schmitt PA-C Work Phone: Start: 09-04-2023 Radiologic examination knee 3 views Vidal SAUCEDA-C Work Phone: Start: 09-02-[address] Deanna Aponte Work Phone: Start: 03-09-2023 Radiologic examination knee 3 views Vidal Schmitt PA-C Work Phone: Start: 09-10-2022 End: 09-11-2022 Chest PA and Lateral Procedure Note: See Note; NOTES: [facility] [address] [place] [address] Chest PA and Lateral MR#: [id number] Acct: [id number] Name: MARIAJOSE MARCELINO Rep #: [id number] : 1955 F 66 From: Jayden Carvajal PCP: Dr. Deanna Aponte, DO Status: DEP AMB Study: Chest PA and Lateral Date of Exam: 09/10/22 Exam# [id number] Ordering Dr: Deanna Aponte DO INDICATION: COUGH EXAMINATION/TECHNIQUE: X-RAY - XR Chest 2 Views COMPARISON: No previous relevant examinations available for comparison.. FINDINGS: LIFE-SUPPORT AND LINES: 1. None HEART AND VESSELS: The cardiac silhouette, pulmonary vasculature have normal appearance. No evidence of congestive failure. LUNGS AND PLEURAL SPACES: There is subtle interstitial prominence of LEFT lung base, remaining lung zones are clear. No consolidation, no effusion. No pulmonary mass is noted. MEDIASTINUM AND HILAR REGIONS: No masses adenopathy noted. No areas of calcification. Visualized upper airway is normal in position. BONY ELEMENTS: No acute bony changes noted. RAD/Chest PA and Lateral IMPRESSION: 1. Subtle interstitial asymmetric prominence LEFT lung base. This is accentuated by overlapping soft tissue however subtle LEFT basilar interstitial infiltrate is a consideration. 2. Remaining lung zones clear, no consolidation, no congestive failure or effusion. Electronically Signed: Jayden Rodriguez MD at 18:34 EST , CC: Dr. Deanna Aponte DO Milieu Coordinator: Signed Deanna Aponte DO Work Phone: Start: 09-10-2022 Plain chest X-ray Dr. Deanna Aponte Work Phone: Start: 09-01-2022 End: 09-01-2022 Process Engineering Technician Office Visit Report Procedure Note: See Note; NOTES: [facility] 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 Required: No Is patient in pain?: No Allergies cefaclor [From Ceclor] Allergy (Intermediate, Verified 09/01/22 10:50) Rash Latex, Natural Rubber Adverse Reaction (Mild, Verified 09/01/22 10:50) rash Medications levothyroxine 50 mcg tablet (Synthroid) 50 mcg PO QDAY 02/03/18 [History Confirmed 09/01/22] montelukast 10 mg tablet 10 mg PO QPM 02/03/18 [History Confirmed 09/01/22] multivitamin 1 tab PO QDAY 02/03/18 [History Confirmed 09/01/22] rosuvastatin 40 mg tablet 40 mg PO DAILY 04/19/19 [History Confirmed 09/01/22] cholecalciferol (vitamin D3) 25 mcg (1,000 unit) capsule 1,000 unit PO DAILY 04/24/19 [History Confirmed 09/01/22] calcium carbonate 500 mg calcium (1,250 mg) tablet (Calcium 500) 500 mg PO DAILY 04/23/20 [History Confirmed 09/01/22] lactobacillus combination no.8 3 billion cell capsule (Adult Probiotic) 3,000 mmu cells PO DAILY 04/23/20 [History Confirmed 09/01/22] estradiol 0.01% (0.1 mg/gram) vaginal cream (Estrace) See Rx Instructions vaginal .COMPLEX #42.5 grams 05/20/21 [Rx Confirmed 09/01/22] Is last menstrual period known: No Post menopausal: Yes Patient : No : No PFSH Medical History Arthritis Asthma Fever Hemorrhoids Knee pain Thyroid disease Surgical History (Updated 09/01/22 @ 10:57 by Mariaelena Vega) Gallbladder bile duct stone with obstruction H/O section History of partial hysterectomy Status post right knee replacement Family History Mother Colon cancer Myocardial infarction Father Parkinson disease Social History Smoking Status: Never smoker alcohol intake: never substance use type: does not use diet: lactose free caffeine: Yes Type: coffee Number of servings: 2 and tea Number of servings: 3 what type of physical activity do you participate in: walking frequency: 1-2 times per week seatbelt use: always do you feel safe at home: Yes additional social history: recently 's name Brenda PtHari is retired History 4 Elective abortions Hx Para 4 Spontaneous abortions Hx # Term Pregnancies 4 Ectopic pregnancies Hx # Pregnancies Multiple births # of living children 4 Past Pregnancies Del. Date Name GA/Weeks Outcome Route Bth Weight Infant Gen Labor Lgth Anesthesia Del Locatn Provider FOB Unknown Ann 1978 Unknown Skylar 1979 Unknown Aniyah 1982 Unknown Lorraine 1984 HPI Encounter for routine gynecological examination Details: MARIAJOSE MARCELINO is a 66 year old who presents for annual exam. Denies concerns. Does not need refill on estrace cream yet. Last PAP: NA History of abnormal PAP: no Last mammogram: 06/2022 History of abnormal mammogram: no Colon cancer screenin Other preventative health care screenings: [facility] History Menopausal Treatment: Yes Vaginal Estrogen ROS Const Constitutional: Denies fatigue, weight gain or weight loss Cardio Card: Denies chest pain Resp Resp: Denies cough or dyspnea on exertion GI GI: Denies abdominal pain, bloating, change in stool character, constipation or vomiting : Reports as per HPI; Denies difficulty voiding, pelvic pain, urinary frequency, urinary incontinence, urinary urgency, vaginal discharge or vaginal pruritus Exam Const General: cooperative, healthy appearing, no acute distress and well developed Orientation: alert, oriented to person and oriented to place HENMS Head: normal to inspection Neck Neck: normal visual inspection Thyroid: thyroid normal Lymphatic: no lymphadenopathy noted Chest Breast inspection: normal inspection of the breasts and normal inspection of the axillae Breast palpation: normal palpation of the breasts, normal palpation of the axillae and no axillary lymphadenopathy Resp Effort Inspection: normal respiratory effort GI Palpation: soft, no masses and nontender Rectal Exam: deferred External Female Exam: normal external appearance and normal appearance of the urethra Urethra: normal appearance of the urethra and normal palpation Speculum Exam - Vagina: normal appearance of the vagina and normal vaginal discharge Speculum Exam - Cervix: absent Bimanual Exam- Vagina Uterus: normal bimanual exam and uterus absent Bimanual Exam- Adnexa, other: normal adnexae, no masses, normal and non-tender Pelvic Support: normal Neuro General: patient alert and patient oriented x3 Psych Affect: normal affect Coding Level of Care Code Pelvic/Breast Diagnoses Encounter for routine gynecological examination Z01.419 Gynecological examination findings: abnormal findings ABSENT Atrophic vaginitis N95.2 Assessment and Plan Assessment and Plan (1) Encounter for routine gynecological examination: Qualifiers: Gynecological examination findings: abnormal findings ABSENT Qualified Code(s): Z01.419 - Encounter for gynecological examination (general) (routine) without abnormal findings (2) Atrophic vaginitis: Status: Acute Comment: estradiol cream Plan Completed breast and pelvic exam Reviewed diet and exercise Pap na Mammogram recent breast self exam encouraged monthly will call when needs refill of estrace cream Colonoscopy 2021 Bone density follows with PCP RTO 1 year, prn with problems Shruti De La Cruz CNP 09/01/22 1114 <Electronically signed by Shruti De La Cruz NP [employer]> Date Shruti De La Cruz NP [employer] Cosigner Signature: Date (if applicable) CC: Deanna Aponte DO Work Phone: Start: 07-07-2022 Screening mammography Start: 07-07-2022 End: 07-07-2022 SCRN MAMM (CAD)W/BENNY BILAT Procedure Note: See Note; NOTES: [facility] Imaging Services [address] [place] [id number] SCRN MAMM (CAD)W/BENNY BILAT MR#: [id number] Acct: [id number] Name: MARIAJOSE MARCELINO Rep #: [id number] : 1955 F 66 From: Dino murdock MD PCP: Dr. Deanna Aponte, DO Status: REG CLI Study: SCRN MAMM (CAD)W/BENNY BILAT Date of Exam: 06/26 09/17 Exam# [id number] Ordering Dr: Deanna Aponte DO MAMMOGRAPHY - BILATERAL SCREENING REASON FOR EXAM: Female, 66 years old. Routine annual screening examination. PERTINENT HISTORY: Non-contributory. TECHNIQUE: Digital bilateral breast benny (3D mammographic acquisition) in the CC and MLO projections. 2-D mediolateral oblique (MLO) and craniocaudad (CC) views of both breasts were obtained. CAD: Full Field Digital Mammography with Computer Added Detection was performed. COMPARISON: Comparison is made with prior examination 05/20/2021 and 05/18/2020. FINDINGS: Breast Composition: There are scattered areas of fibroglandular density. There are no dominant masses or suspicious calcifications. Stable benign-appearing bilateral axillary lymph nodes. No other significant abnormalities are identified. There has been no significant change since the prior study. BI/SCRN MAMM (CAD)W/BENNY BILAT IMPRESSION: Stable bilateral screening mammogram. Yearly follow-up mammogram recommended. (A) ASSESSMENT CATEGORY: BIRADS Category 2: Benign. A letter regarding these results will be sent to the patient by the facility within 30 days. Approximately 10% of breast cancers are not detected by mammography. A normal mammogram should not delay biopsy of a clinically suspicious abnormality. [id number] Electronically Signed: Dino Ellis MD at 11:11 EST , CC: Dr. Deanna Aponte DO Milieu Coordinator: Signed Deanna Aponte DO Work Phone: Start: 05-30-2022 Radiologic examination knee 3 views Vidal Schmitt PA-C Work Phone: Start: 05-15-2022 End: 05-15-2022 Total replacement of right knee joint Dhiraj Hooper CMA Start: 05-01-2022 C-reactive protein Vidal SAUCEDA-C Work Phone: Start: 05-01-2022 Sedimentation rate rbc automated Vidal SAUCEDA-C Work Phone: Start: 05-01-2022 Arthrocentesis aspir&/inj major jt/bursa w/o us Vidal DAWSONC Work Phone: Start: 04-09-2022 End: 04-09-2022 Dexa Bone Density Study Procedure Note: See Note; NOTES: [facility] Imaging Services [address] [place] [address] Dexa Bone Density Study MR#: [id number] Acct: [id number] Name: MARIAJOSE MARCELINO Rep #: [id number] : 1955 F 66 From: Dino murdock MD PCP: Dr. Deanna Aponte DO Status: REG CLI Study: Dexa Bone Density Study Date of Exam: 04/09/22 Exam# [id number] Ordering Dr: Deanna Aponte DO STUDY: DUAL ENERGY X-RAY ABSORPTIOMETRY / DXA REASON FOR EXAM: Female, 66 years old. [id number]. Patient is postmenopausal. TECHNIQUE: Bone Mineral Density (BMD) measurements of lumbar spine and bilateral hips were obtained. COMPARISON: Comparison is made with prior study dated 05/17/2019. FINDINGS: Lumbar Spine (L1-L4): g/cm2 (0.930) / T-score (-1.1) / Z-score (0.9) Findings are suggestive of osteopenia with a low fracture risk. Left Femur Total: g/cm2 (0.650) / T-score (-2.4) / Z-score (-1.0) Left Femoral Neck: g/cm2 (0.588) / T-score (-2.3) / Z-score (-0.6) Right Femur Total: g/cm2 (0.613) / T-score (-2.7) / Z-score (-1.3) Right Femoral Neck: g/cm2 (0.568) / T-score (-2.5) / Z-score (-0.8) The T-Scores on the most recent prior examination were: Lumbar Spine (L1-L4): There has been worsening of bone density since the previous examination. Left Femur Total: which represents a worsening of 2.1%. Right Femur Total: which represents a worsening of 3.3%. BD/Dexa Bone Density Study IMPRESSION: The patient is considered osteoporotic as outlined below according to World Georgi Organization (WHO) criteria with a high fracture risk. There has been worsening of bone density since the previous examination. Reference Information: The T-score is the number of standard deviations above or below the standard which is normal for young adults at their peak bone mineral density. The World Health Organization (WHO) interprets the T-scores as follows: Above -1 Normal bone density Between -1 and -2.5 Osteopenia Equal to / or below -2.5 Osteoporosis As a practical clinical guideline, osteopenia may be graded as follows: Mild -1 through -1.5 Moderate -1.6 through -2.0 Severe -2.1 through -2.4 The Z-score is the number of standard deviations above or below age-matched controls. A Z-score of less than -1.5 would be considered abnormal. References: 1. NIH Osteoporosis and Related Bone Diseases www osteo.org 2. International Society for Clinical Densitometry www iscd.org 3. National Osteoporosis Foundation www nof.org Electronically Signed: Dino Ellis MD at 10:58 EDT , CC: Dr. Deanna Aponte DO Milieu Coordinator: Signed Deanna Aponte DO Work Phone: Start: 04-09-2022 Dual energy X-ray absorptiometry Start: 05-20-2021 End: 05-22-2021 Process Engineering Technician Office Visit Report Comments: See Note; NOTES: [facility] 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) Allergies cefaclor [From Ceclor] Allergy (Intermediate, Verified 05/20/21 08:38) Rash Latex, Natural Rubber Adverse Reaction (Mild, Verified 05/20/21 08:38) rash Medications levothyroxine 50 mcg tablet 50 mcg PO QDAY 02/03/18 [History Confirmed 05/20/21] montelukast 10 mg tablet 10 mg PO QPM 02/03/18 [History Confirmed 05/20/21] multivitamin 1 tab PO QDAY 02/03/18 [History Confirmed 05/20/21] rosuvastatin 40 mg tablet 40 mg PO DAILY 04/19/19 [History Confirmed 05/20/21] cholecalciferol (vitamin D3) 25 mcg (1,000 unit) capsule 1,000 unit PO DAILY 04/24/19 [History Confirmed 05/20/21] calcium carbonate 500 mg calcium (1,250 mg) tablet 500 mg PO DAILY 04/23/20 [History Confirmed 05/20/21] lactobacillus combination no.8 3 billion cell capsule 3,000 mmu cells PO DAILY 04/23/20 [History Confirmed 05/20/21] estradiol See Rx Instructions VAGINAL .COMPLEX #42.5 g 05/20/21 [Rx Confirmed 05/20/21] Post menopausal: Yes PFSH Medical History (Updated 05/20/21 @ 09:21 by Shruti De La Cruz [employer], [employer]) Arthritis Asthma Fever Hemorrhoids Knee pain Thyroid disease Surgical History Gallbladder bile duct stone with obstruction H/O section History of partial hysterectomy Status post right knee replacement Family History Mother Colon cancer Myocardial infarction Father Parkinson disease Social History Smoking Status: Never smoker alcohol intake: never substance use type: does not use diet: lactose free caffeine: Yes Type: coffee Number of servings: 2 and tea Number of servings: 3 what type of physical activity do you participate in: walking frequency: 1-2 times per week seatbelt use: always do you feel safe at home: Yes additional social history: recently 's name Brenda Pt. is retired Pregancy History 4 Elective abortions Hx Para 4 Spontaneous abortions Hx # Term Pregnancies 4 Ectopic pregnancies Hx # Pregnancies Multiple births # of living children 4 Past Pregnancies Del. Date Name GA/Weeks Outcome Route Bth Weight Gen Labor Lgth Anesthesia Del Locatn Provider FOB Unknown Ann 1978 Unknown Skylar 1979 Unknown Aniyah 1982 Unknown Lorraine 1984 HPI Encounter for routine gynecological examination: Details: MARIAJOSE MARCELINO is a 65 year old who presents for annual exam. Denies concerns. Not sexually active. Needs refill estradiol cream. Recently moved to [facility] to be closer to 2 of her daughters. Last PAP: na History of abnormal PAP: no Last mammogram: today History of abnormal mammogram: no Colon cancer screenin Other preventative health care screenings: Fatmata Details: MARIAJOSE MARCELINO is a 65 year old who presents for annual exam. Last PAP: [] History of abnormal PAP: [] Last mammogram: [] History of abnormal mammogram: [] Colon cancer screening: [] Other preventative health care screenings: [] ROS Const Constitutional: Denies fatigue, weight gain or weight loss Cardio Card: Denies chest pain Resp Resp: Denies cough or dyspnea on exertion GI GI: Denies abdominal pain, bloating, change in stool character, constipation or vomiting : Reports as per HPI; Denies difficulty voiding, pelvic pain, urinary frequency, urinary incontinence, urinary urgency, vaginal discharge or vaginal pruritus Exam Const General: cooperative, healthy appearing, no acute distress and well developed Orientation: alert, oriented to person and oriented to place [facility] Head: normal to inspection Neck Neck: normal visual inspection Thyroid: thyroid normal Lymphatic: no lymphadenopathy noted Chest Breast inspection: normal inspection of the breasts and normal inspection of the axillae Breast palpation: normal palpation of the breasts, normal palpation of the axillae and no axillary lymphadenopathy Resp Effort Inspection: normal respiratory effort GI Palpation: soft, no masses and nontender Rectal Exam: deferred External Female Exam: normal external appearance and normal appearance of the urethra Urethra: normal appearance of the urethra and normal palpation Speculum Exam - Vagina: normal vaginal discharge and vagina atrophic (mild, good estrogen effect) Speculum Exam - Cervix: absent Bimanual Exam- Vagina Uterus: normal bimanual exam and uterus absent Bimanual Exam- Adnexa, other: normal adnexae, no masses, normal and non-tender Pelvic Support: normal Neuro General: patient alert and patient oriented x3 Psych Affect: normal affect Coding Level of Care Code Pelvic/Breast Diagnoses Encounter for routine gynecological examination Z01.419 Atrophic vaginitis N95.2 Assessment and Plan Assessment and Plan (1) Encounter for routine gynecological examination: (2) Atrophic vaginitis: Status: Acute Comment: estradiol cream Plan - Shruti De La Cruz [employer], [employer]: Completed breast and pelvic exam Reviewed diet and exercise Pap na Mammogram today breast self exam encouraged monthly refill estradiol cream Colonoscopy 2019 Bone density today RTO 1 year, prn with problems 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 Plan Details Other Medications: Changed: From: estradiol 0.01%(0.1mg/gram) (Estrace) pea sized amount VAGINAL every other day X 4 weeks then twice a week; 42.5 grams 2RF To: estradiol 0.01%(0.1mg/gram) (Estrace) pea sized amount VAGINAL twice a week; 42.5 grams 2RF 05/20/21 0921 <Electronically signed by Shruti De La Cruz NP [employer]> Date Shruti De La Cruz [employer] Cosigner Signature: Date (if applicable) CC: Deanna Aponte DO Work Phone: Start: 05-20-2021 End: 05-20-2021 SCRN MAMM (CAD)W/BENNY BILAT Comments: See Note; NOTES: [facility] Imaging Services [address] [place] [address] SCRN MAMM (CAD)W/BENNY BILAT MR#: [id number] Acct: [id number] Name: MARIAJOSE MARCELINO Monique Rep #: [id number] : 1955 F 65 From: Dino murdock MD PCP: Dr. Deanna Aponte, DO Status: REG CLI Study: SCRN MAMM (CAD)W/BENNY BILAT Date of Exam: 04/27 12/14 Exam# [id number] Ordering Dr: Shruti De La Cruz NP [employer] -C MAMMOGRAPHY - BILATERAL SCREENING REASON FOR EXAM: Female, 65 years old. Routine annual screening examination. PERTINENT HISTORY: Non-contributory. TECHNIQUE: Digital bilateral breast benny (3D mammographic acquisition) in the CC and MLO projections. 2-D mediolateral oblique (MLO) and craniocaudad (CC) views of both breasts were obtained. CAD: Full Field Digital Mammography with Computer Added Detection was performed. COMPARISON: Comparison is made with prior study 05/18/2020 and 05/17/2019. FINDINGS: Breast Composition: There are scattered areas of fibroglandular density. There are no dominant masses or suspicious calcifications. Stable scattered bilateral microcalcifications more prominent in the left breast. Stable small benign-appearing bilateral axillary lymph nodes. No other significant abnormalities are identified. There has been no significant change since the prior study. BI/SCRN MAMM (CAD)W/BENNY BILAT IMPRESSION: Stable bilateral screening mammogram. Yearly follow-up mammogram recommended. (A) ASSESSMENT CATEGORY: BIRADS Category 2: Benign. A letter regarding these results will be sent to the patient by the facility within 30 days. Approximately 10% of breast cancers are not detected by mammography. A normal mammogram should not delay biopsy of a clinically suspicious abnormality. [id number] Electronically Signed: Dino Ellis MD at 9:13 EDT , Service support , CC: [employer] Shruti De La Cruz; Dr. Deanna Aponte DO Milieu Coordinator: Signed Deanna Aponte DO Work Phone: Start: 05-18-2020 End: 05-18-2020 SCREEN MAMM (CAD) W/BENNY BILAT Comments: See Note; NOTES: [facility] Imaging Services [address] [place] [id number] SCREEN MAMM (CAD) W/BENNY BILAT MR#: [id number] Acct: [id number] Name: MARIAJOSE MARCELINO Rep #: [id number] : 1955 F 64 From: Dino murdock MD PCP: Dr. Deanna Aponte DO Status: REG CL Study: SCREEN MAMM (CAD) W/BENNY BILAT Date of Exam: Exam# [id number] Ordering Dr: Shruti De La Cruz NP [employer] -C MAMMOGRAPHY - BILATERAL SCREENING REASON FOR EXAM: Female, 64 years old. Routine annual screening examination. PERTINENT HISTORY: Non-contributory. TECHNIQUE: Digital bilateral breast benny (3D mammographic acquisition) in the CC and MLO projections. 2-D mediolateral oblique (MLO) and craniocaudad (CC) views of both breasts were obtained. CAD: Full Field Digital Mammography with Computer Added Detection was performed. COMPARISON: Comparison is made with prior study dated 05/17/2019 and 02/22/2018. FINDINGS: Breast Composition: There are scattered areas of fibroglandular density. There are no dominant masses or suspicious calcifications. Stable benign appearing bilateral axillary lymph nodes. Stable scattered microcalcifications more prominent in the left breast. No focal clusters seen. No other significant abnormalities are identified. There has been no significant change since the prior study. BI/SCREEN MAMM (CAD) W/BENNY BILAT IMPRESSION: Stable bilateral screening mammogram. Yearly follow-up mammogram recommended. (A) ASSESSMENT CATEGORY: BIRADS Category 2: Benign. A letter regarding these results will be sent to the patient by the facility within 30 days. Approximately 10% of breast cancers are not detected by mammography. A normal mammogram should not delay biopsy of a clinically suspicious abnormality. [id number] Electronically Signed: Dino Ellis, at 10:13 EDT , Service support , CC: KVNG De La Cruz; Dr. 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) Hog Ringer Required: No Accompanied by: self Allergies cefaclor [From [facility]] Allergy (Intermediate, Verified 04/23/20 10:12) Rash Latex, Natural Rubber Adverse Reaction (Mild, Verified 04/23/20 10:12) rash Medications levothyroxine 50 mcg tablet 50 mcg PO QDAY 02/03/18 [History Confirmed 04/23/20] montelukast 10 mg tablet 10 mg PO QPM 02/03/18 [History Confirmed 04/23/20] multivitamin 1 tab PO QDAY 02/03/18 [History Confirmed 04/23/20] rosuvastatin 40 mg tablet 40 mg PO DAILY 04/19/19 [History Confirmed 04/23/20] cholecalciferol (vitamin D3) 25 mcg (1,000 unit) capsule 1,000 unit PO DAILY 04/24/19 [History Confirmed 04/23/20] calcium carbonate 500 mg calcium (1,250 mg) tablet 500 mg PO DAILY 04/23/20 [History Confirmed 04/23/20] estradiol See Rx Instructions VAGINAL .COMPLEX #42.5 g 04/23/20 [Rx Confirmed 04/23/20] lactobacillus combination no.8 3 billion cell capsule 3,000 mmu cells PO DAILY 04/23/20 [History Confirmed 04/23/20] Is last menstrual period known: No Post menopausal: Yes Patient : No : No PFSH Medical History Arthritis (Acute) Asthma (Acute) Fever (Acute) Hemorrhoids (Acute) Knee pain (Acute) Thyroid disease (Acute) Surgical History Gallbladder bile duct stone with obstruction (Acute) H/O section (Acute) History of partial hysterectomy (Acute) Status post right knee replacement (Acute) Family History Mother Colon cancer Myocardial infarction Father Parkinson disease Social History (Updated 04/23/20 @ 10:46 by Shruti De La Cruz NP, [employer]C) Smoking Status: Never smoker alcohol intake: never substance use type: does not use diet: lactose free caffeine: Yes Type: coffee Number of servings: 2, tea Number of servings: 3 what type of physical activity do you participate in: walking frequency: 1-2 times per week seatbelt use: always do you feel safe at home: Yes additional social history: recently 's name Brenda PtHari is retired Pregancy History 4 Elective abortions Hx Para 4 Spontaneous abortions Hx # Term Pregnancies 4 Ectopic pregnancies Hx # Pregnancies Multiple births # of living children 4 Past Pregnancies Del. Date Name GA/Weeks Outcome Route Bth Weight Gen Labor Lgth Anesthesia Del [facility] Provider FOB Unknown Ann 1978 Unknown Skylar 1979 Unknown Aniyah 1982 Unknown Lorraine 1984 HPI Encounter for routine gynecological examination: Details: MARIAJOSE MARCELINO is a 64 year old who presents for annual exam. Denies concerns Last PAP: hyst History of abnormal PAP: no Last mammogram: 05/17/19 History of abnormal mammogram: no Colon cancer screening: schedule 04/2020-Q3yr Other preventative health care screenings: Fatmata Female Reproductive History Questions: Metorrhagia: No, Sexually active: No Menopausal Treatment: Yes Vaginal Estrogen (not using routinely. Having irritation and dryness. ) ROS Const Constitutional: Denies fatigue, weight gain or weight loss Cardio Card: Denies chest pain Resp Resp: Denies cough or shortness of breath with activity GI GI: Denies abdominal pain, bloating, change in stools, constipation or vomiting : Reports as per HPI; denies difficulty urinating, pelvic pain, urinary frequency, urinary incontinence, urinary urgency, vaginal discharge or vaginal itching Exam Const General: cooperative Orientation: alert, oriented to person, oriented to place HENMT Head: normal to inspection Neck Neck: normal visual inspection Thyroid: thyroid normal Lymphatic: no lymphadenopathy noted Chest Breast inspection: normal inspection of the breasts, normal inspection of the axillae Breast palpation: normal palpation of the breasts, normal palpation of the axillae, no axillary lymphadenopathy Resp Effort Inspection: normal respiratory effort GI Palpation: soft, no masses, nontender Rectal Exam: deferred External Female Exam: normal appearance of the urethra, other (atrophic changes) Urethra: normal appearance of the urethra, normal palpation Speculum Exam - Vagina: atrophic vaginal mucosa Speculum Exam - Cervix: cervix absent Bimanual Exam- Vagina Uterus: normal bimanual exam, uterus absent Bimanual Exam- Adnexa, other: normal adnexae, no adnexal masses, pelvic support normal, adnexae non- tender Pelvic Support: normal Neuro General: alert, oriented x3 Psych Affect: normal affect Assessment Plan Problems 1. Encounter for gynecological examination with abnormal finding Z01.411 2. 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 Orders Orders: SCREEN MAMM (CAD) W/BENNY BILAT Today Medications New: estradiol 0.01%(0.1mg/gram) (Estrace) pea sized amount VAGINAL every other day X 4 weeks then twice a week; 42.5 grams 2RF Coding Level of Care Code MC Pelvic/Breast Diagnoses Encounter for gynecological examination with abnormal finding Z01.411 ?Gynecological examination findings: abnormal findings PRESENT Atrophic vaginitis N95.2 04/23/20 1046 <Electronically signed by Shruti De La Cruz NP [employer]-C> Date Shruti De La Cruz NP [employer]-C Cosigner Signature: Date (if applicable) CC: Deanna Aponte Start: 05-17-2019 End: 05-17-2019 Dexa Bone Density Study Comments: See Note; NOTES: [facility] Imaging Services [address] [place] [address] Dexa Bone Density Study MR#: [id number] Acct: [id number] Name: MARIAJOSE MARCELINO Rep #: [id number] : 1955 F 63 From: Dino Ellis MD PCP: Deanna Aponte DO Status: REG CLI Study: Dexa Bone Density Study Date of Exam: 05/17/19 Exam# [id number] Ordering Dr: Shruti De La Cruz STUDY: DUAL ENERGY X-RAY ABSORPTIOMETRY / DXA REASON FOR EXAM: Female, 63 years old. The patient is postmenopausal. Loss of height. TECHNIQUE: Bone Mineral Density (BMD) measurements of lumbar spine and bilateral hips were obtained. COMPARISON: None. FINDINGS: Lumbar Spine (L1-L4): g/cm2 (1.075) / T-score (-0.9) / Z-score (0.7) Findings are suggestive of normal bone density with a low fracture risk. Left Femur Total: g/cm2 (0.722) / T-score (-2.3) / Z-score (-1.1) Left Femoral Neck: g/cm2 (0.734) / T-score (-2.2) / Z-score (-0.7) Right Femur Total: g/cm2 (0.691) / T-score (-2.5) / Z-score (-1.3) Right Femoral Neck: g/cm2 (0.738) / T-score (-2.2) / Z-score (-0.7) BD/Dexa Bone Density Study IMPRESSION: The patient is considered osteopenic as outlined below according to World Georgi Organization (WHO) criteria with a high fracture risk. Reference Information: The T-score is the number of standard deviations above or below the standard which is normal for young adults at their peak bone mineral density. The World Health Organization (WHO) interprets the T-scores as follows: Above -1 Normal bone density Between -1 and -2.5 Osteopenia Equal to / or below -2.5 Osteoporosis As a practical clinical guideline, osteopenia may be graded as follows: Mild -1 through -1.5 Moderate -1.6 through -2.0 Severe -2.1 through -2.4 The Z-score is the number of standard deviations above or below age-matched controls. A Z-score of less than -1.5 would be considered abnormal. References: 1. NIH Osteoporosis and Related Bone Diseases http://www.osteo.org 2. International Society for Clinical Densitometry http://www.iscd.org 3. National Osteoporosis Foundation http://www.nof.org Electronically Signed: Dino Ellis, at 12:39 EDT , Service support , CC: ANAMARIA De La Cruz; Deanna Aponte DO Milieu Coordinator: Signed Deanna Aponte Work Phone: Start: 05-17-2019 End: 05-17-2019 SCREEN MAMM (CAD) W/BENNY BILAT Comments: See Note; NOTES: [facility] Imaging Services [address] [place] [id number] SCREEN MAMM (CAD) W/BENNY BILAT MR#: [id number] Acct: [id number] Name: MARIAJOSE MARCELINO Rep #: [id number] : 1955 F 63 From: Dino Ellis MD PCP: Deanna Aponte DO Status: [facility] Study: SCREEN MAMM (CAD) W/BENNY BILAT Date of Exam: 05/17/19 Exam# [id number] Ordering Dr: Shruti De La Cruz NP-Khloe MAMMOGRAPHY - BILATERAL SCREENING REASON FOR EXAM: Female, 63 years old. Routine annual screening examination. PERTINENT HISTORY: Non-contributory. TECHNIQUE: Digital bilateral breast benny (3D mammographic acquisition) in the CC and MLO projections. 2-D mediolateral oblique (MLO) and craniocaudad (CC) views of both breasts were obtained. CAD: Full Field Digital Mammography with Computer Added Detection was performed. COMPARISON: Comparison is made with prior examination dated February 22, 2018. FINDINGS: Breast Composition: There are scattered areas of fibroglandular density. There are no dominant masses or suspicious calcifications. Stable benign-appearing bilateral axillary lymph nodes. Stable scattered calcifications in both breasts. No other significant abnormalities are identified. There has been no significant change since the prior study. BI/SCREEN MAMM (CAD) W/BENNY BILAT IMPRESSION: Stable bilateral screening mammogram. Yearly follow-up mammogram recommended. (A) ASSESSMENT CATEGORY: BIRADS Category 2: Benign. A letter regarding these results will be sent to the patient by the facility within 30 days. Approximately 10% of breast cancers are not detected by mammography. A normal mammogram should not delay biopsy of a clinically suspicious abnormality. 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 Hog Ringer Required: No Is patient in pain?: No Allergies [facility] [[facility]] Allergy (Intermediate, Verified 04/19/19 10:50) Rash Latex, Natural Rubber Adverse Reaction (Mild, Verified 04/19/19 10:50) rash Medications estradiol 0.01% (0.1 mg/gram) vaginal cream See Rx Instructions VAGINAL .COMPLEX #42.5 g 02/03/18 [Rx Confirmed 04/19/19] levothyroxine 50 mcg tablet 50 mcg PO QDAY 02/03/18 [History Confirmed 04/19/19] montelukast 10 mg tablet 10 mg PO QPM 02/03/18 [History Confirmed 04/19/19] multivitamin tablet 1 tab PO QDAY 02/03/18 [History Confirmed 04/19/19] rosuvastatin 40 mg tablet 40 mg PO DAILY 04/19/19 [History Confirmed 04/19/19] Is last menstrual period known: No Post menopausal: Yes Patient : No : No PFSH Surgical History Status post right knee replacement (Acute) Gallbladder AND bile duct stone with obstruction (Acute) H/O section (Acute) History of partial hysterectomy (Acute) Family History Mother Colon cancer Myocardial infarction Social History (Updated 04/19/19 @ 12:37 by KVNG Chandler) Smoking Status: Never smoker alcohol intake: never substance use type: does not use diet: lactose free caffeine: Yes Type: coffee Number of servings: 2, tea Number of servings: 3 what type of physical activity do you participate in: walking frequency: 1-2 times per week seatbelt use: always do you feel safe at home: Yes additional social history: recently 's name Brenda PtHari is retired Pregancy History 4 Elective abortions Hx Para 4 Spontaneous abortions Past Pregnancies Del. 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 History of abnormal PAP: no Last mammogram: 01/2018 History of abnormal mammogram: no Colon cancer screenin Q3yr. Other preventative health care screenings: Dr. Aponte Female Reproductive History Questions: Metorrhagia: No, Sexually active: No () Menopausal Treatment: Yes Vaginal Estrogen ROS Const Constitutional: Denies fatigue, weight gain or weight loss Cardio Card: Denies chest pain Resp Resp: Denies cough or shortness of breath with activity GI GI: Denies abdominal pain, bloating, change in stools, constipation or vomiting : Reports as per HPI; denies difficulty urinating, pelvic pain, urinary frequency, urinary incontinence, urinary urgency, vaginal discharge or vaginal itching Exam Const General: cooperative, healthy appearing, no acute distress, well developed Orientation: alert, oriented to person, oriented to place HENMS Head: normal to inspection Neck Neck: normal visual inspection Thyroid: thyroid normal Lymphatic: no lymphadenopathy noted Chest Breast inspection: normal inspection of the breasts, normal inspection of the axillae Breast palpation: normal palpation of the breasts, normal palpation of the axillae, no axillary lymphadenopathy Resp Effort AND Inspection: normal respiratory effort GI Palpation: soft, no masses, nontender Rectal Exam: deferred External Female Exam: normal external appearance, normal appearance of the urethra Urethra: normal appearance of the urethra, normal palpation Speculum Exam - Vagina: normal vaginal discharge, atrophic vaginal mucosa (short vaginal vault, use small speculum. ) Speculum Exam - Cervix: cervix absent Bimanual Exam- Vagina AND Uterus: normal bimanual exam, uterus absent Bimanual Exam- Adnexa, other: normal adnexae, no adnexal masses, pelvic support normal, adnexae non-tender Pelvic Support: normal Neuro General: alert, oriented x3 Psych Affect: normal affect Assessment AND Plan Problems 1. 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 [address] [place], [place] [address] OFFICE VISIT Date of Service: 02/03/18 MR#: [id number] Acct: [id number] Name: MARIAJOSE MARCELINO Rep #: [id number] : 1955 Provider: ANAMARIA De La Cruz Age/Sex: 62/F [place] [facility]: Signed with Addenda ADDENDUM by ANAMARIA De La Cruz on 08/03/18 at [facility] Addendum entered and electronically signed by KVNG Chandler 08/03/18 10:07: Rectal exam was deferred. No masses palpated Assessment AND Plan Problems 1. Encounter for gynecological examination with abnormal finding Z01.411 2. Encounter for screening mammogram for malignant neoplasm of breast Z12.31 3. Atrophic vaginitis N95.2 Plan - KVNG Chandler Completed breast and pelvic exam Reviewed diet and exercise Pap NA Mammogram ordered Colonoscopy up to date Bone density NA Rx start estrace cream RTO 1 year, prn with problems 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 Orders Orders: Medications New: estradiol 0.01%(0.1mg/gram) (Estrace) pea sized amount VAGINAL every other day X 4 weeks t hen twice a week; 2RF 08/03/18 1007 <Electronically signed by Shruti CALDERON> Date Shruti De La Cruz cc: * Signed Intake Vital Signs02/03/18 Height 5 ft 1 in 02/03/18 Weight: 161 lb 4 oz 02/03/18 Body Mass Index (BMI) 30.4 02/03/18 Blood Pressure 124/76 Intake Visit Reasons: NEW annual Chief Complaint: occasional itching since colonoscopy in May Allergies cefaclor [From Ceclor] Allergy (Intermediate, Verified 02/03/18 10:29) Rash Latex, Natural Rubber Adverse Reaction (Mild, Verified 02/03/18 10:13) rash Medications estradiol 0.01% (0.1 mg/gram) vaginal cream See Label Instructions VAGINAL .COMPLEX #42.5 g 02/03/18 [Rx Confirmed 02/03/18] levothyroxine 50 mcg tablet 50 mcg PO QDAY 02/03/18 [History Confirmed 02/03/18] lisinopril 10 mg tablet 10 mg PO QDAY 02/03/18 [History Confirmed 02/03/18] montelukast 10 mg tablet 10 mg PO QPM 02/03/18 [History Confirmed 02/03/18] multivitamin tablet 1 tab PO QDAY 02/03/18 [History Confirmed 02/03/18] niacin (inositol niacinate) 500 mg capsule 1,000 mg PO cap 02/03/18 [History Confirmed 02/03/18] pravastatin 40 mg tablet 40 mg PO QDAY 02/03/18 [History Confirmed 02/03/18] PFSH Surgical History Gallbladder AND bile duct stone with obstruction (Acute) H/O section (Acute) History of partial hysterectomy (Acute) Family History Mother Colon cancer Myocardial infarction Social History Smoking Status: Never smoker alcohol intake: never substance use type: does not use diet: lactose free caffeine: Yes Type: coffee Number of servings: 2, tea Number of servings: 3 what type of physical activity do you participate in: walking frequency: 3-4 times per week seatbelt use: always do you feel safe at home: Yes additional social history: recently 's name Brenda Robb is retired Pregancy History 4 Elective abortions Hx Para 4 Spontaneous abortions HPI NEW annual: Details: MARIAJOSE MARCELINO is a 62 year old who presents for new patient annual exam. Has area of external vaginal itching off and on. 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 Was living near [place]. Moved to [place] in June to be closer to children. Last PAP: NA; KASEY, BSO History of abnormal PAP: no Last mammogram: 2016 History of abnormal mammogram: no Colon cancer screenin05/2017 Female Reproductive History Questions: Metorrhagia: No, Sexually active: No, Dyspareunia: No, PCB: No ROS Const Constitutional: Denies fatigue, weight gain or weight loss Cardio Card: Denies chest pain Resp Resp: Denies cough or shortness of breath with activity GI GI: Denies abdominal pain, constipation, change in stools, vomiting or bloating : Reports as per HPI; denies urinary frequency, pelvic pain, urinary urgency, vaginal discharge, vaginal itching, urinary incontinence or difficulty urinating Exam Const General: cooperative, healthy appearing, no acute distress, well developed Orientation: alert, oriented to person, oriented to place [facility] Head: normal to inspection Neck Neck: normal visual inspection Thyroid: thyroid normal Lymphatic: no lymphadenopathy noted Chest Breast inspection: normal inspection of the breasts, normal inspection of the axillae Breast palpation: normal palpation of the breasts, normal palpation of the axillae, no axillary lymphadenopathy Resp Effort AND Inspection: normal respiratory effort GI Palpation: soft, nontender, no masses Rectal Exam: mass, deferred External Female Exam: normal appearance of the urethra, other (pale and regression of minora) Urethra: normal appearance of the urethra, normal palpation Speculum Exam - Vagina: normal vaginal discharge, atrophic vaginal mucosa, other (very pale at posterior introitus) Speculum Exam - Cervix: cervix absent Bimanual Exam- Vagina AND Uterus: normal bimanual exam, uterus absent Bimanual Exam- Adnexa, other: normal adnexae, no adnexal masses, adnexae non-tender, pelvic support normal Pelvic Support: normal Neuro General: alert, oriented x3 Psych Affect: normal affect Assessment AND Plan Problems 1. Encounter for gynecological examination with abnormal finding Z01.411 2. Encounter for screening mammogram for malignant neoplasm of breast Z12.31 3. 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 Orders Orders: Medications New: estradiol 0.01%(0.1mg/gram) (Estrace) pea sized amount VAGINAL every other day X 4 weeks t hen twice a week; Coding Level of Care Code Off vis,new,prev 40-64yrs Diagnoses Encounter for gynecological examination with abnormal finding Z01.411 Gynecological examination findings: abnormal findings PRESENT Encounter for screening mammogram for malignant neoplasm of breast Z12.31 Atrophic vaginitis N95.2 02/03/18 1217 <Electronically signed by Shruti CALDERON> Date Shruti CALDERON Cosigner Signature: Date (if applicable) CC: Deanna Aponte Start: 02-22-2018 End: 03-08-2018 SCREENING MAMM (CAD), BILAT Comments: See Note; NOTES: [facility] Imaging Services [address] [place] [address] SCREENING MAMM (CAD), BILAT MR#: [id number] Acct: [id number] Name: MARCELINOMARIAJOSE M Rep #: [id number] : 1955 F 62 From: Dino Ellis MD PCP: Deanna Aponte DO Status: [facility] CLI Study: SCREENING MAMM (CAD), BILAT Date of Exam: 02/22/18 Exam# [id number] Ordering Dr: Shruti De La Cruz NP-Khloe MAMMOGRAPHY - BILATERAL SCREENING REASON FOR EXAM: Female, 62 years old. Routine annual screening examination. PERTINENT HISTORY: Non-contributory. TECHNIQUE: Digital bilateral breast benny (3D mammographic acquisition) in the CC and MLO projections. 2-D mediolateral oblique (MLO) and craniocaudad (CC) views of both breasts were obtained. CAD: Full Field Digital Mammography with Computer Added Detection was performed. COMPARISON: Comparison is made with prior outside examination dated February 10, 2017. FINDINGS: Breast Composition: There are scattered areas of fibroglandular density. There are no dominant masses or suspicious calcifications. Stable benign-appearing bilateral axillary lymph nodes. No other significant abnormalities are identified. There has been no significant change since the prior study. BI/SCREENING MAMM (CAD), BILAT IMPRESSION: Stable bilateral screening mammogram. Yearly follow-up mammogram recommended. (A) ASSESSMENT CATEGORY: BIRADS Category 2: Benign. A letter regarding these results will be sent to the patient by the facility within 30 days. Approximately 10% of breast cancers are not detected by mammography. A normal mammogram should not delay biopsy of a clinically suspicious abnormality. [id number] Electronically Signed: Dino Ellis MD at 11:17 EDT Tel [phone], Service support , CC: ANAMARIA De La Cruz; Deanna Aponte DO Milieu Coordinator: Signed Deanna Aponte Work Phone: Start: 02-03-2018 End: 02-03-2018 Process Engineering Technician Office Visit Report Comments: See Note; NOTES: [facility] [address] [place] [address] OFFICE VISIT Date of Service: 02/03/18 MR#: [id number] Acct: [id number] Name: MARIAJOSE MARCELINO Rep #: [id number] : 1955 Provider: ANAMARIA De La Cruz Age/Sex: 62/F [place] [facility] [place]: Signed Intake Vital Signs02/03/18 Height 5 ft 1 in 02/03/18 Weight: 161 lb 4 oz 02/03/18 Body Mass Index (BMI) 30.4 02/03/18 Blood Pressure 124/76 Intake Visit Reasons: NEW annual Chief Complaint: occasional itching since colonoscopy in May Allergies cefaclor [[facility]] Allergy (Intermediate, Verified 02/03/18 10:29) Rash Latex, Natural Rubber Adverse Reaction (Mild, Verified 02/03/18 10:13) rash Medications estradiol 0.01% (0.1 mg/gram) vaginal cream See Label Instructions VAGINAL .COMPLEX #42.5 g 02/03/18 [Rx Confirmed 02/03/18] levothyroxine 50 mcg tablet 50 mcg PO QDAY 02/03/18 [History Confirmed 02/03/18] lisinopril 10 mg tablet 10 mg PO QDAY 02/03/18 [History Confirmed 02/03/18] montelukast 10 mg tablet 10 mg PO QPM 02/03/18 [History Confirmed 02/03/18] multivitamin tablet 1 tab PO QDAY 02/03/18 [History Confirmed 02/03/18] niacin (inositol niacinate) 500 mg capsule 1,000 mg PO cap 02/03/18 [History Confirmed 02/03/18] pravastatin 40 mg tablet 40 mg PO QDAY 02/03/18 [History Confirmed 02/03/18] PFSH Surgical History Gallbladder AND bile duct stone with obstruction (Acute) H/O section (Acute) History of partial hysterectomy (Acute) Family History Mother Colon cancer Myocardial infarction Social History Smoking Status: Never smoker alcohol intake: never substance use type: does not use diet: lactose free caffeine: Yes Type: coffee Number of servings: 2, tea Number of servings: 3 what type of physical activity do you participate in: walking frequency: 3-4 times per week seatbelt use: always do you feel safe at home: Yes additional social history: recently 's name Brenda Robb is retired Pregancy History 4 Elective abortions Hx Para 4 Spontaneous abortions HPI NEW annual: Details: MARIAJOSE MARCELINO is a 62 year old who presents for new patient annual exam. Has area of external vaginal itching off and on. 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 Was living near [place]. Moved to [place] in June to be closer to children. Last PAP: NA; KASEY, BSO History of abnormal PAP: no Last mammogram: 2017 History of abnormal mammogram: no Colon cancer screenin05/2017 Female Reproductive History Questions: Metorrhagia: No, Sexually active: No, Dyspareunia: No, PCB: No ROS Const Constitutional: Denies fatigue, weight gain or weight loss Cardio Card: Denies chest pain Resp Resp: Denies cough or shortness of breath with activity GI GI: Denies abdominal pain, constipation, change in stools, vomiting or bloating : Reports as per HPI; denies urinary frequency, pelvic pain, urinary urgency, vaginal discharge, vaginal itching, urinary incontinence or difficulty urinating Exam Const General: cooperative, healthy appearing, no acute distress, well developed Orientation: alert, oriented to person, oriented to place HENMS Head: normal to inspection Neck Neck: normal visual inspection Thyroid: thyroid normal Lymphatic: no lymphadenopathy noted Chest Breast inspection: normal inspection of the breasts, normal inspection of the axillae Breast palpation: normal palpation of the breasts, normal palpation of the axillae, no axillary lymphadenopathy Resp Effort AND Inspection: normal respiratory effort GI Palpation: soft, nontender, no masses Rectal Exam: mass, deferred External Female Exam: normal appearance of the urethra, other (pale and regression of minora) Urethra: normal appearance of the urethra, normal palpation Speculum Exam - Vagina: normal vaginal discharge, atrophic vaginal mucosa, other (very pale at posterior introitus) Speculum Exam - Cervix: cervix absent Bimanual Exam- Vagina AND Uterus: normal bimanual exam, uterus absent Bimanual Exam- Adnexa, other: normal adnexae, no adnexal masses, adnexae non-tender, pelvic support normal Pelvic Support: normal Neuro General: alert, oriented x3 Psych Affect: normal affect Assessment AND Plan Problems 1. Encounter for gynecological examination with abnormal finding Z01.411 2. Encounter for screening mammogram for malignant neoplasm of breast Z12.31 3. 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 Orders Orders: Medications New: estradiol 0.01%(0.1mg/gram) (Estrace) pea sized amount VAGINAL every other day X 4 weeks t hen twice a week; Coding Level of Care Code Off vis,new,prev 40-64yrs Diagnoses Encounter for gynecological examination with abnormal finding Z01.411 Gynecological examination findings: abnormal findings PRESENT Encounter for screening mammogram for malignant neoplasm of breast Z12.31 Atrophic vaginitis N95.2 02/03/18 1217 <Electronically signed by Shruti CALDERON> Date Shruti CALDERON Cosigner Signature: Date (if applicable) CC: Deanna Aponte Appendectomy Maggi Tena Comment on above: 1979 Appendectomy Nereida Gravius Comment on above: 1979 Appendectomy Maggi Tena Comment on above: 1979 Appendectomy Maggi Tena Comment on above: 1979 Appendectomy Tracey Aime Comment on above: 1979 Appendectomy Nereida Gravius Comment on above: 1979 Appendectomy Kacy Lewis Comment on above: 1979 Appendectomy Divya Tena Comment on above: 1979 Appendectomy Guadalupe Bender Comment on above: 1979 Appendectomy Chuck Schmitt Comment on above: 1979 Appendectomy Tracey Harvey PN Comment on above: 1979 Appendectomy Tracey Harvey PN Comment on above: 1979 Appendectomy Nereida Gravius FORKLIFT TRUCK OPERATOR Comment on above: 1979 Appendectomy Alonsoyela Sandie FORKLIFT TRUCK OPERATOR Comment on above: 1979 Appendectomy Kacasimiroa Sandie FORKLIFT TRUCK OPERATOR Comment on above: 1979 Appendectomy Kayela Sandie FORKLIFT TRUCK OPERATOR Comment on above: 1979 Appendectomy Isha Zapata MA Comment on above: 1979 Appendectomy Wilbur Aguilayochadwick GOYAL N Comment on above: 1979 Bone density scan Maggi li Comment on above: 2013 Bone density scan Nereida Gra vius Comment on above: 2013 Bone density scan Maggi li Comment on above: 2013 Bone density scan Maggi li Comment on above: 2013 Bone density scan Tracey Coff man Comment on above: 2013 Bone density scan Nereida Gra vius Comment on above: 2013 Bone density scan Kacy Sla rb Comment on above: 2013 Bone density scan Divya L Lo ng Comment on above: 2013 Bone density scan Guadalupe Mandeep schmidt Comment on above: 2013 Bone density scan Chuck Angel ana Comment on above: 2013 Bone density scan Tracey Coff man BRUSH MACHINE SETTER Comment on above: 2013 Bone density scan Tracey Coff man BRUSH MACHINE SETTER Comment on above: 2013 Bone density scan Nereida Gra vius FORKLIFT TRUCK OPERATOR Comment on above: 2013 Bone density scan Kayela Rad romero FORKLIFT TRUCK OPERATOR Comment on above: 2013 Bone density scan Kayela Rad romero FORKLIFT TRUCK OPERATOR Comment on above: 2013 Bone density scan Kayela Rad romero FORKLIFT TRUCK OPERATOR Comment on above: 2013 Bone density scan Isha Nasimi nn MA Comment on above: 2013 Bone density scan Wilbur Pry or BRUSH MACHINE SETTER Comment on above: 2013 section Maggi montes Comment on above: [id number] section Nereida Grav ius Comment on above: [id number] section Maggi montes Comment on above: [id number] section Maggi montes Comment on above: [id number] section Tracey Coffm an Comment on above: [id number] section Nereida Grav ius Comment on above: [id number] section Kacy Slar b Comment on above: [id number] section Divya L Tino g Comment on above: [id number] section Guadalupe Darren moralezer Comment on above: [id number] section Chuck Nguyen s Comment on above: [id number] section Tracey Coffm an BRUSH MACHINE SETTER Comment on above: [id number] section Tracey Coffm an BRUSH MACHINE SETTER Comment on above: [id number] section Nereida Grav ius FORKLIFT TRUCK OPERATOR Comment on above: [id number] section Kayela Radf ord FORKLIFT TRUCK OPERATOR Comment on above: [id number] section Kayela Radf ord FORKLIFT TRUCK OPERATOR Comment on above: [id number] section Kayela Radf ord FORKLIFT TRUCK OPERATOR Comment on above: [id number] section Isha bustillo MA Comment on above: [id number] section Wilbur Pryo r BRUSH MACHINE SETTER Comment on above: [id number] Cholecystectomy Maggi Alarcon roseline Cholecystectomy Nereida Gravi us Cholecystectomy Maggi Messen roseline Cholecystectomy Maggi Rangelen roseline Cholecystectomy Tracey Coffma n Cholecystectomy Nereida Gravi us Cholecystectomy Kacy Slarb Cholecystectomy Divya L Long Cholecystectomy Guadalupe Coul ter Cholecystectomy Chuck Schmitt Cholecystectomy Tracey Coffma n BRUSH MACHINE SETTER Cholecystectomy Tracey Coffma n BRUSH MACHINE SETTER Cholecystectomy Nereida Gravi us FORKLIFT TRUCK OPERATOR Cholecystectomy Kayela Radfo rd FORKLIFT TRUCK OPERATOR Cholecystectomy Kayela Radfo rd FORKLIFT TRUCK OPERATOR Cholecystectomy Kayela Radfo rd FORKLIFT TRUCK OPERATOR Cholecystectomy Isha Zapata MA Cholecystectomy Wilbur Llewellyn BRUSH MACHINE SETTER Hysterectomy Maggi Tena Comment on above: 1998 Hysterectomy Nereida Gravius Comment on above: 1998 Hysterectomy Maggi Tena Comment on above: 1998 Hysterectomy Maggi Tena Comment on above: 1998 Hysterectomy Tracey Aime Comment on above: 1998 Hysterectomy Nereida Gravius Comment on above: 1998 Hysterectomy Kacy Slarb Comment on above: 1998 Hysterectomy Divya L Long Comment on above: 1998 Hysterectomy Guadalupe Winslow Comment on above: 1998 Hysterectomy Chuck Oskar Comment on above: 1998 Hysterectomy Tracey Aime L PN Comment on above: 1998 Hysterectomy Tracey Aime L PN Comment on above: 1998 Hysterectomy Nereida Gravius FORKLIFT TRUCK OPERATOR Comment on above: 1998 Hysterectomy Kayela Noble FORKLIFT TRUCK OPERATOR Comment on above: 1998 Hysterectomy Kayela Noble FORKLIFT TRUCK OPERATOR Comment on above: 1998 Hysterectomy Kayela Noble FORKLIFT TRUCK OPERATOR Comment on above: 1998 Hysterectomy Isha Zapata MA Comment on above: 1998 Hysterectomy Wilbur Llewellyn LP N Comment on above: 1998 Microscopic examinat ion of cervical Papanicolaou smear Maggi Tena Comment on above: 01/12/17 Microscopic examinat ion of cervical Papanicolaou smear Nereida Gravana Comment on above: 01/12/17 Microscopic examinat ion of cervical Papanicolaou smear Maggi Tena Comment on above: 01/12/17 Microscopic examinat ion of cervical Papanicolaou smear Maggi Tena Comment on above: 01/12/17 Microscopic examinat ion of cervical Papanicolaou smear Tracey Salomon Comment on above: 01/12/17 Microscopic examinat ion of cervical Papanicolaou smear Nereida Gravius Comment on above: 01/12/17 Microscopic examinat ion of cervical Papanicolaou smear Kacy Lewis Comment on above: 01/12/17 Microscopic examinat ion of cervical Papanicolaou smear Divya Tena Comment on above: 01/12/17 Microscopic examinat ion of cervical Papanicolaou smear Guadalupe Bender Comment on above: 01/12/17 Microscopic examinat ion of cervical Papanicolaou smear Chuck Schmitt Comment on above: 01/12/17 Microscopic examinat ion of cervical Papanicolaou smear Tracey Aime BRUSH MACHINE SETTER Comment on above: 01/12/17 Microscopic examinat ion of cervical Papanicolaou smear Tracey Aime BRUSH MACHINE SETTER Comment on above: 01/12/17 Microscopic examinat ion of cervical Papanicolaou smear Nereida Gravius FORKLIFT TRUCK OPERATOR Comment on above: 01/12/17 Microscopic examinat ion of cervical Papanicolaou smear Kayela Sandie FORKLIFT TRUCK OPERATOR Comment on above: 01/12/17 Microscopic examinat ion of cervical Papanicolaou smear Kayela Noble FORKLIFT TRUCK OPERATOR Comment on above: 01/12/17 Microscopic examinat ion of cervical Papanicolaou smear Kayela Sandie FORKLIFT TRUCK OPERATOR Comment on above: 01/12/17 Microscopic examinat ion of cervical Papanicolaou smear Isha Zapata MA Comment on above: 01/12/17 Microscopic examinat ion of cervical Papanicolaou smear Wilbur Metz LPN Comment on above: 01/12/17 Ophthalmic examinati on and evaluation Maggi Tena Comment on above: 06/30/17 Ophthalmic examinati on and evaluation Nereida Gravius Comment on above: 06/30/17 Ophthalmic examinati on and evaluation Maggi Tena Comment on above: 06/30/17 Ophthalmic examinati on and evaluation Maggi Tena Comment on above: 06/30/17 Ophthalmic examinati on and evaluation Tracey Aime Comment on above: 06/30/17 Ophthalmic examinati on and evaluation Nereida Gravius Comment on above: 06/30/17 Ophthalmic examinati on and evaluation Kacy Lewis Comment on above: 06/30/17 Ophthalmic examinati on and evaluation Divya Tena Comment on above: 06/30/17 Ophthalmic examinati on and evaluation Guadalupe Bender Comment on above: 06/30/17 Ophthalmic examinati on and evaluation Chuck Schmitt Comment on above: 06/30/17 Ophthalmic examinati on and evaluation Tracey Aime BRUSH MACHINE SETTER Comment on above: 06/30/17 Ophthalmic examinati on and evaluation Tracey Aime BRUSH MACHINE SETTER Comment on above: 06/30/17 Ophthalmic examinati on and evaluation Nereida Gravius FORKLIFT TRUCK OPERATOR Comment on above: 06/30/17 Ophthalmic examinati on and evaluation Kayela Noble FORKLIFT TRUCK OPERATOR Comment on above: 06/30/17 Ophthalmic examinati on and evaluation Kayela Noble FORKLIFT TRUCK OPERATOR Comment on above: 06/30/17 Ophthalmic examinati on and evaluation Kayela Noble FORKLIFT TRUCK OPERATOR Comment on above: 06/30/17 Ophthalmic examinati on and evaluation Isha Zapata MA Comment on above: 06/30/17 Ophthalmic examinati on and evaluation Wilbur Lashay BRUSH MACHINE SETTER Comment on above: 06/30/17 Replacement of total knee joint Nereida Gravius Comment on above: rt 01/19/19 Replacement of total knee joint Kacy Joshua Comment on above: rt 01/19/19 Replacement of total knee joint Chuck Schmitt Comment on above: rt 01/19/19 Replacement of total knee joint Tracey Aime BRUSH MACHINE SETTER Comment on above: rt 01/19/19 Replacement of total knee joint Tracey Aime BRUSH MACHINE SETTER Comment on above: rt 01/19/19 Replacement of total knee joint Nereida Gravius FORKLIFT TRUCK OPERATOR Comment on above: rt 01/19/19 Replacement of total knee joint Kayela Noble FORKLIFT TRUCK OPERATOR Comment on above: rt 01/19/19 Replacement of total knee joint Kayela Noble FORKLIFT TRUCK OPERATOR Comment on above: rt 01/19/19 Replacement of total knee joint Kayela Noble FORKLIFT TRUCK OPERATOR Comment on above: rt 01/19/19 Replacement of total knee joint Isha Zapata MA Comment on above: rt 01/19/19 Replacement of total knee joint Wilbur Llewellyn BRUSH MACHINE SETTER Comment on above: rt 01/19/19 Screening colonoscopy Maggi Tena Comment on above: 06/10/17 Screening colonoscopy Nereida Tamera Comment on above: 06/10/17 Screening colonoscopy Maggi Tena Comment on above: 06/10/17 Screening colonoscopy Maggi Tena Comment on above: 06/10/17 Screening colonoscopy Tracey Salomon Comment on above: 06/10/17 Screening colonoscopy Nereida Gravius Comment on above: 06/10/17 Screening colonoscopy Kacy Slarb Comment on above: 06/10/17 Screening colonoscopy Divya Tena Comment on above: 06/10/17 Screening colonoscopy Linda Bender Comment on above: 06/10/17 Screening colonoscopy Chuck Schmitt Comment on above: 06/10/17 Screening colonoscopy Tracey Aime BRUSH MACHINE SETTER Comment on above: 06/10/17 Screening colonoscopy Tracey Aime BRUSH MACHINE SETTER Comment on above: 06/10/17 Screening colonoscopy Nereida Gravius FORKLIFT TRUCK OPERATOR Comment on above: 06/10/17 Screening colonoscopy Kayela Noble FORKLIFT TRUCK OPERATOR Comment on above: 06/10/17 Screening colonoscopy Kayela Noble FORKLIFT TRUCK OPERATOR Comment on above: 06/10/17 Screening colonoscopy Kayela Noble FORKLIFT TRUCK OPERATOR Comment on above: 06/10/17 Screening colonoscopy Isha Zapata MA Comment on above: 06/10/17 Screening colonoscopy Wilbur Llewellyn BRUSH MACHINE SETTER Comment on above: 06/10/17 Screening mammography Maggi Tena Comment on above: 02/10/17 Screening mammography Nereida Gravius Comment on above: 02/10/17 Screening mammography Maggi Tena Comment on above: 02/10/17 Screening mammography Maggi Tena Comment on above: 02/10/17 Screening mammography Tracey Aime Comment on above: 02/10/17 Screening mammography Nereida Gravius Comment on above: 02/10/17 Screening mammography Kacy Slarb Comment on above: 02/10/17 Screening mammography Divya Tena Comment on above: 02/10/17 Screening mammography Linda Bender Comment on above: 02/10/17 Screening mammography Chuck Schmitt Comment on above: 02/10/17 Screening mammography Tracey Aime BRUSH MACHINE SETTER Comment on above: 02/10/17 Screening mammography Tracey Aime BRUSH MACHINE SETTER Comment on above: 02/10/17 Screening mammography Nereida Gravius FORKLIFT TRUCK OPERATOR Comment on above: 02/10/17 Screening mammography Kayela Noble FORKLIFT TRUCK OPERATOR Comment on above: 02/10/17 Screening mammography Kayela Noble FORKLIFT TRUCK OPERATOR Comment on above: 02/10/17 Screening mammography Kayela Noble FORKLIFT TRUCK OPERATOR Comment on above: 02/10/17 Screening mammography Isha Zapata MA Comment on above: 02/10/17 Screening mammography Wilbur Llewellyn BRUSH MACHINE SETTER Comment on above: 02/10/17 Total knee replacement Maggi Tena Comment on above: rt 01/19/19 Total knee replacement Maggi Tena Comment on above: rt 01/19/19 Total knee replacement Tracey Salomon Comment on above: rt 01/19/19 Total knee replacement Imani Philip Comment on above: rt 01/19/19 Total knee replacement Aby agustin Napoleon Comment on above: rt 01/19/19 Plan of Treatment Date Care Activity Detail Author Start: 12-03-2026 Diabetes Screening Diabetes Screenin g [facility] Start: 11-12-2026 Diabetes Screening Diabetes Screenin g [facility] Start: 11-11-2026 Diabetes Screening Diabetes Screenin g [facility] Start: 06-06-2025 ambulatory Ambulatory Facility:[facility] Start: 05-17-2025 DIABETES SCREEN DIABETES SCREEN [facility] Start: 05-17-2025 Diabetes Screening Diabetes Screenin g [facility] Start: 05-16-2025 DIABETES SCREEN DIABETES SCREEN [facility] Start: 03-27-2025 Influenza vaccination Influenz a Vaccine (Season Ended) [facility] Start: 11-23-2024 End: 11-23-2024 Patient encounter procedure Orthopaedics Comment on above: 6 month follow up rt TKA right knee Start: 07-27-2024 Advance Directive Discussion Advance Directive Discussion [facility] Start: 05-25-2024 End: 05-25-2024 Patient encounter procedure 05/25/2024 10:15 AM EDT Office Visit Orthopaedics [address] [address] Yanira Garcia MD [address] [address] Rt tka revision 12/03/23 Orthopaedics Comment on above: Rt tka revision Start: 03-27-2024 Covid-19 Vaccine ( season) Covid-19 Vaccine ( season) [facility] Start: 03-27-2024 Covid-19 Vaccine ( season) Covid-19 Vaccine ( season) [facility] Start: 03-27-2024 Influenza vaccination C [facility] Start: 01-22-2024 End: 01-22-2024 Patient encounter procedure 01/22/2024 1:45 PM EDT Office Visit [facility] [address] [address] Yanira Garcia MD [address] [address] post op Rt tka revision 12/03/23 Orthopaedics Comment on above: post op Rt tka ed ion 12/03/23 Start: 01-22-2024 End: 01-22-2024 ambulatory 01/22/2024 9:00 AM EDT OT/PT/Speech Visit [facility] [address] [facility] [place] [address] Kemal Aldrich, PT [address] [facility] [address] right knee [facility] Comment on above: right knee Start: 01-19-2024 End: 01-19-2024 ambulatory 01/19/2024 9:30 AM EDT OT/PT/Speech Visit [facility] [address] [address] Drake Paige, VARIETY PERFORMER [address] [place] [address] right knee [facility] Comment on above: right knee Start: 01-08-2024 End: 01-08-2024 ambulatory 01/08/2024 9:00 AM EDT OT/PT/Speech Visit [facility] [address] [facility] [address] Kemal Aldrich, PT [address] [facility] [address] right knee [facility] Comment on above: right knee Start: 01-05-2024 End: 01-05-2024 ambulatory 01/05/2024 9:30 AM EDT OT/PT/Speech Visit [facility] [address] [place] [address] Drake Paige, VARIETY PERFORMER [address] [place] [address] right knee [facility] Comment on above: right knee Start: 01-01-2024 End: 01-01-2024 ambulatory 01/01/2024 9:00 AM EDT OT/PT/Speech Visit [facility] [address] [facility] [address] Kemal Aldrich, PT [address] [place] [address] right knee [facility] Comment on above: right knee Start: 12-29-2023 End: 12-29-2023 ambulatory 12/29/2023 9:30 AM EDT OT/PT/Speech Visit [facility] [address] [place] [address] Drake Paige, VARIETY PERFORMER [address] [place] [address] right knee [facility] Comment on above: right knee Start: 12-18-2023 End: 12-18-2023 Patient encounter procedure Orthopaedics Comment on above: 1st post op Rt tka r evision 12/03/23 R knee R knee Order 12/03 Start: 12-18-2023 End: 12-18-2023 ambulatory 12/18/2023 8:00 AM EDT OT/PT/Speech Visit [facility] [address] [facility] [address] Martita Mascorro, PT RT TKR [facility] DC 12/16 [facility] Comment on above: RT TKR [facility] DC 12/16 Start: 12-17-2023 End: 12-17-2023 Patient encounter procedure [facility] Comment on above: [id number]---CLA revision 69518---TFP revision Confirmed 8:30-9:00 Start: 12-15-2023 End: 12-15-2023 Home visit [facility] Comment on above: [id number]---YLN revision Start: 12-11-2023 End: 12-11-2023 Home visit [facility] Comment on above: [id number]---RNX revision 18995---DTC revision could be a thursday visit [address]5048---FUL revision could be a thursday visit Confirmed 8:30-9:30 Start: 12-10-2023 End: 12-10-2023 Home visit [facility] Comment on above: [id number]---WKP revision 58221---VDC revision drsg removal 12/09-12/11 Start: 12-08-2023 End: 12-08-2023 Home visit [facility] Comment on above: [id number]---FXE revision Start: 12-05-2023 End: 12-05-2023 Patient encounter procedure 12/05/2023 12:15 PM EDT Appointment [facility] [address] [place] [address] CmuminsGema, PT [address] [place] [id number] CM ZAIRE, [id number] 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, Mechanical loosening of prosthetic knee, 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 devices, implants and grafts, initial encounter (HCC) s/p 12/03/23 REVISION JOINT TOTAL KNEE FEMORAL AND ENTIRE TIBIAL COMPONENT (Right: Knee) confirmed 12-12:30 time [facility] Comment on above: [id number] CM ZAIRE, M0 104 12/03, Mechanical loosening of prosthetic knee, 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 devices, implants and grafts, initial encounter (HCC) s/p 12/03/23 REVISION JOINT TOTAL KNEE FEMORAL AND ENTIRE TIBIAL COMPONENT (Right: Knee) confirmed 12-12:30 time Start: 12-03-2023 End: 12-03-2023 Admission to same day surgery center 12/03/2023 10:21 AM EDT - 12/03/2023 2:25 PM EDT [facility] [address] [place] [address] Yanira Garcia MD [address] [address] REVISION JOINT TOTAL KNEE FEMORAL AND ENTIRE TIBIAL COMPONENT [facility] Comment on above: REVISION JOINT TOTAL KNEE FEMORAL AND ENTIRE TIBIAL COMPONENT Start: 12-03-2023 End: 12-03-2023 Revj tot knee arthrp fem&entire tibial compone REVISION JOINT TOTAL KNEE FEMORAL AND ENTIRE TIBIAL COMPONENT Mechanical loosening of prosthetic knee, 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 Work Phone: Comment on above: Expected: 11/12/2023 , Expires: 02/11/2024 Start: 11-12-2023 End: 02-11-2024 Hemoglobin A1c in Blood [facility] Work Phone: Comment on above: Expected: 11/12/2023 , Expires: 02/11/2024 Start: 11-12-2023 End: 02-11-2024 TYPE AND SCREEN,[address] [facility] Work Phone: Comment on above: Expected: 11/12/2023 , Expires: 02/11/2024 Start: 07-27-2023 Advance Directive Discussion Advance Directive Discussion [facility] Start: 07-27-2023 Behavioral Health Screening Behavioral Health Screening [facility] Start: 07-27-2023 Depression Assessment Depression Ass essment [facility] Start: 06-23-2023 BP CONTROLLED (<130/80) BP CON TROLLED (<130/80) [facility] Start: 05-29-2023 BP CONTROLLED (<130/80) BP CON TROLLED (<130/80) [facility] Start: 05-21-2023 BP CONTROLLED (<130/80) BP CON TROLLED (<130/80) [facility] Start: 05-20-2023 BP CONTROLLED (<130/80) BP CON TROLLED (<130/80) [facility] Start: 05-19-2023 BP CONTROLLED (<130/80) BP CON TROLLED (<130/80) [facility] Start: 04-13-2023 Procedure Education Eprescribe d prescriptions (G8553) [facility]; [facility] Work Phone: Start: 04-13-2023 Provider Instruction s for Treatment [facility]; [facility] Work Phone: Start: 04-13-2023 25 hydroxy includes fractions if performed CALCIFIDIOL (95172) VIT D 25 [facility]; [facility] Work Phone: Start: 04-13-2023 Assay of thyroid stimulating hormone tsh TSH (25168) [facility]; [facility] Work Phone: Start: 04-13-2023 Urnls dip stick/tabl et reagent auto microscopy URINALYSIS, W/ MICRO (17815) [facility]; [facility] Work Phone: Start: 04-13-2023 Urine albumin quantitative MICROALBUMIN: CREATININE RATIO (77572) AND (67156) [facility]; [facility] Work Phone: Start: 04-13-2023 Comprehensive metabo lic panel METABOLIC PANEL, COMPREHENSIVE (56562) [facility]; [facility] Work Phone: Start: 04-13-2023 Blood count complete auto&auto difrntl wbc CBC W/AUTO DIFF WBC (59416) [facility]; [facility] Work Phone: Start: 04-02-2023 25 hydroxy includes fractions if performed CALCIFEDIOL (63413) [facility]; [facility] Work Phone: Start: 04-02-2023 Assay of thyroid stimulating hormone tsh TSH (40100) [facility]; [facility] Work Phone: Start: 04-02-2023 Blood count complete auto&auto difrntl wbc CBC, PLATELETS & AUT DIFF (65529) [facility]; [facility] Work Phone: Start: 04-02-2023 Comprehensive metabo lic panel METABOLIC PANEL, COMPREHENSIVE (81815) [facility]; [facility] Work Phone: Start: 04-02-2023 Lipid panel LIPID PANEL (27416) [facility]; [facility] Work Phone: Start: 04-02-2023 Urine albumin quantitative MICROALBUMIN: CREATININE RATIO (05884) AND (09201) [facility]; [facility] Work Phone: Start: 04-02-2023 Urnls dip stick/tabl et reagent auto microscopy URINALYSIS, W/ MICRO (01044) [facility]; [facility] Work Phone: Start: 03-27-2023 Covid-19 Vaccine ( season) Covid-19 Vaccine ( season) [facility] Start: 03-27-2023 Influenza vaccination [facility] Start: 10-15-2022 Potassium serum plasma/whole blood POTASSIUM SERUM (43267) [facility]; [facility] Work Phone: Start: 10-08-2022 Procedure Education Eprescribe d prescriptions (G8553) [facility]; [facility] Work Phone: Start: 10-08-2022 Provider Instruction s for Treatment [facility]; [facility] Work Phone: Start: 10-08-2022 25 hydroxy includes fractions if performed CALCIFIDIOL (95439) VIT D 25 [facility]; [facility] Work Phone: Start: 10-08-2022 Urnls dip stick/tabl et reagent auto microscopy URINALYSIS, W/ MICRO (79894) [facility]; [facility] Work Phone: Start: 10-08-2022 Urine albumin quantitative MICROALBUMIN: CREATININE RATIO (68130) AND (06388) [facility]; [facility] Work Phone: Start: 10-08-2022 Comprehensive metabo lic panel METABOLIC PANEL, COMPREHENSIVE (42219) [facility]; [facility] Work Phone: Start: 10-08-2022 Lipid panel LIPID PANEL (80104) [facility]; [facility] Work Phone: Start: 10-08-2022 Blood count complete auto&auto difrntl wbc CBC W/AUTO DIFF WBC (50499) [facility]; [facility] Work Phone: Start: 10-08-2022 Assay of thyroid stimulating hormone tsh TSH (72617) [facility]; [facility] Work Phone: Start: 09-10-2022 Procedure Education Eprescribe d prescriptions (G8553) [facility]; [facility] Work Phone: Start: 09-10-2022 Provider Instruction s for Treatment Solu Medrol Injection/ Education [facility]; [facility] Work Phone: Start: 07-27-2022 ADVANCE DIRECTIVE DISCUSSION ADVANCE DIRECTIVE DISCUSSION [facility] Start: 07-27-2022 DEPRESSION ASSESSMENT DEPRESSION ASS ESSMENT [facility] Start: 07-07-2022 Procedure Education Eprescribe d prescriptions (G8553) [facility]; [facility] Work Phone: Start: 07-07-2022 Provider Instruction s for Treatment [facility]; [facility] Medicine Work Phone: Start: 04-17-2022 Procedure Education Eprescribe d prescriptions (G8553) [facility]; [facility] Work Phone: Start: 04-17-2022 Provider Instruction s for Treatment [facility]; [facility] Work Phone: Start: 04-17-2022 Protein electrophore tic fractj&quantj serum [facility]; [facility] Work Phone: Start: 04-17-2022 25 hydroxy includes fractions if performed Vitamin D Hydroxy (13530) [facility]; [facility] Work Phone: Start: 04-17-2022 1 25 dihydroxy inclu leah fractions if performed VITAMIN D, 1, 25-DIHYDROXY (03130) [facility]; [facility] Work Phone: Start: 04-17-2022 Assay of thyroid stimulating hormone tsh TSH (25122) [facility]; [facility] Work Phone: Start: 04-17-2022 Sedimentation rate r bc non-automated SED RATE ERYTHROCYTE (50744) [facility]; [facility] Work Phone: Start: 04-17-2022 Assay of phosphorus inorganic PHOSPHORUS (44018) [facility]; [facility] Work Phone: Start: 04-17-2022 Assay of parathormone PARATHORMONE ( 78381) [facility]; [facility] Work Phone: Start: 04-17-2022 Hepatic function panel HEPATIC FUNCTION PANEL (82069) [facility]; [facility] Work Phone: Start: 04-17-2022 Blood count complete automated CBC (AUTO) (94776) [facility]; [facility] Work Phone: Start: 04-17-2022 Calcium total CALCIUM SERUM (71555) [facility]; [facility] Work Phone: Start: 04-17-2022 C-reactive protein C-REACTIVE PROTEIN (48566) [facility]; [facility] Work Phone: Start: 04-17-2022 Assay of phosphatase alkaline ALKALINE PHOSPHATASE (75410) [facility]; [facility] Work Phone: Start: 03-27-2022 Influenza vaccination INFLUENZA (#1) [facility] Start: 02-26-2022 Procedure Education Eprescribe d prescriptions (G8553) [facility]; [facility] Work Phone: Start: 02-26-2022 Provider Instruction s for Treatment [facility]; [facility] Work Phone: Start: 01-20-2022 DIABETES SCREEN DIABETES SCREEN [facility] Start: 08-15-2021 Procedure Education Eprescribe d prescriptions (G8553) [facility]; [facility] Work Phone: Start: 08-15-2021 Provider Instruction s for Treatment [facility]; [facility] Work Phone: Start: 08-15-2021 25 hydroxy includes fractions if performed CALCIFIDIOL (74757) VIT D 25 [facility]; [facility] Work Phone: Start: 08-15-2021 Assay of thyroid stimulating hormone tsh TSH (82589) [facility]; [facility] Work Phone: Start: 08-15-2021 Urnls dip stick/tabl et reagent auto microscopy URINALYSIS, W/ MICRO (83100) [facility]; [facility] Work Phone: Start: 08-15-2021 Urine albumin quantitative MICROALBUMIN: CREATININE RATIO (42669) AND (39223) [facility]; [facility] Work Phone: Start: 08-15-2021 Comprehensive metabo lic panel METABOLIC PANEL, COMPREHENSIVE (70441) [facility]; [facility] Work Phone: Start: 08-15-2021 Lipid panel LIPID PANEL (56425) [facility]; [facility] Work Phone: Start: 08-15-2021 Blood count complete auto&auto difrntl wbc CBC W/AUTO DIFF WBC (65018) [facility]; [facility] Work Phone: Start: 08-12-2021 COVID-19 VACCINE (4 - Booster for Pfizer series) COVID-19 VACCINE (4 - Booster for Pfizer series) [facility] Start: 08-12-2021 COVID-19 VACCINE (4 - Pfizer series) COVID-19 VACCINE (4 - Pfizer series) [facility] Start: 08-01-2021 Potassium serum plasma/whole blood POTASSIUM SERUM (70008) [facility]; [facility] Work Phone: Start: 07-27-2021 ADVANCE DIRECTIVE DISCUSSION ADVANCE DIRECTIVE DISCUSSION [facility] Start: 07-27-2021 DEPRESSION ASSESSMENT DEPRESSION ASS ESSMENT [facility] Start: 07-27-2021 Pneumococcal Vaccine : 50+ (3 of 3 - PCV20 or PCV21) Pneumococcal Vaccine: 50+ (3 of 3 - PCV20 or PCV21) [facility] Start: 07-27-2021 Pneumococcal Vaccine : 65+ (3 of 3 - PPSV23 or PCV20) Pneumococcal Vaccine: 65+ (3 of 3 - PPSV23 or PCV20) [facility] Start: 02-13-2021 Procedure Education Eprescribe d prescriptions (G8553) [facility]; [facility] Work Phone: Start: 02-13-2021 Provider Instruction s for Treatment [facility]; [facility] Work Phone: Start: 02-13-2021 Comprehensive metabo lic panel METABOLIC PANEL, COMPREHENSIVE (31434) [facility]; [facility] Work Phone: Start: 01-09-2021 Potassium serum plasma/whole blood POTASSIUM SERUM (83813) [facility]; [facility] Work Phone: Comment on above: STAT Start: 01-07-2021 25 hydroxy includes fractions if performed CALCIFEDIOL (95943) [facility]; [facility] Work Phone: Start: 01-07-2021 Comprehensive metabo lic panel METABOLIC PANEL, COMPREHENSIVE (73780) [facility]; [facility] Work Phone: Start: 01-07-2021 Creatinine other source MICROA LB;CREAT RATION, RAND UR (43905) [facility]; [facility] Work Phone: Start: 01-07-2021 Lipoprotein blood qu an numbers & subclasses NMR Profile (00301) [facility]; [facility] Work Phone: Start: 01-07-2021 Urinls dip stick/tab let reagnt non-auto micrscpy URINALYSIS W MICROSCOPY (34506) [facility]; [facility] Work Phone: Start: 01-07-2021 Blood count complete automated CBC & PLATELETS (AUTO) (97462) [facility]; [facility] Work Phone: Start: 01-07-2021 Assay of thyroid stimulating hormone tsh TSH (THYROID STIMULATING HORMONE) (50610) [facility]; [facility] Work Phone: Start: 10-23-2020 Procedure Education Eprescribe d prescriptions (G8553) [facility]; [facility] Work Phone: Start: 10-23-2020 Provider Instruction s for Treatment [facility]; [facility] Work Phone: Start: 07-23-2020 Procedure Education Eprescribe d prescriptions (G8553) [facility]; [facility] Work Phone: Start: 07-23-2020 Provider Instruction s for Treatment [facility]; [facility] Work Phone: Start: 07-23-2020 Hepatitis c antibody HEPATITIS C ANTIBODY (67277) [facility]; [facility] Work Phone: Start: 07-10-2020 Creatinine other source MICROA LB;CREAT RATION, RAND UR (71937) [facility]; [facility] Work Phone: Start: 07-10-2020 Comprehensive metabo lic panel METABOLIC PANEL, COMPREHENSIVE (47331) [facility]; [facility] Work Phone: Start: 07-10-2020 25 hydroxy includes fractions if performed CALCIFEDIOL (07275) [facility]; [facility] Work Phone: Start: 07-10-2020 Lipoprotein blood qu an numbers & subclasses NMR Profile (42517) [facility]; [facility] Work Phone: Start: 07-10-2020 Blood count complete auto&auto difrntl wbc CBC, PLATELETS & AUT DIFF (08162) [facility]; [facility] Work Phone: Start: 07-10-2020 TSH Qn TSH (THYROID STIMULATING HORMONE) (71083) [facility]; [facility] Work Phone: Start: 02-23-2020 Procedure Education Eprescribe d prescriptions (G8553) [facility] Work Phone: Start: 02-23-2020 Iaadiadoo influenza 2019 Novel Coronavirus (COVID-19), MARIA DE JESUS (81755) [facility] Work Phone: Start: 01-18-2020 Procedure Education Eprescribe d prescriptions (G8553) [facility] Work Phone: Start: 01-18-2020 Provider Instruction s for Treatment [facility] Work Phone: Start: 07-18-2019 Procedure Education Eprescribe d prescriptions (G8553) [facility] Work Phone: Start: 07-18-2019 Provider Instruction s for Treatment [facility] Work Phone: Start: 05-09-2019 TSH Qn TSH (08608) [facility] Work Phone: Start: 05-09-2019 Free T4 [Mass/Vol] T4, FREE (T HYROXINE) (48213) [facility] Work Phone: Start: 05-09-2019 Free T3 [Mass/Vol] T3, FREE (TRIDOTHYRONINE) (00781) [facility] Work Phone: Start: 04-18-2019 Procedure Education Eprescribe d prescriptions (G8553) [facility] Work Phone: Start: 04-18-2019 Provider Instruction s for Treatment Follow up in 3 weeks [facility] Work Phone: Start: 03-03-2019 Provider Instruction s for Treatment [facility] Work Phone: Start: 01-17-2019 Procedure Education Eprescribe d prescriptions (G8553) [facility] Work Phone: Start: 01-17-2019 Provider Instruction s for Treatment [facility] Work Phone: Start: 2018 BONE DENSITY BONE DENSITY [facility] Start: 2018 Screening for osteoporosis Bone Density Screening [facility] Start: 09-24-2018 Protein mass conc NMR Profile (20057 ) [facility] Work Phone: Start: 09-24-2018 Hepatic function panel HEPATIC FUNCTION PANEL (12442) [facility] Work Phone: Start: 07-15-2018 Provider Instruction s for Treatment [facility] Work Phone: Start: 07-15-2018 25 hydroxy includes fractions if performed CALCIFEDIOL (57652) [facility] Work Phone: Start: 07-15-2018 Microsomal antibodie s each Anti-TPO Antibody (12551) [facility] Work Phone: Start: 07-15-2018 T4 free mass conc T4, FREE (TH YROXINE) (01103) [facility] Work Phone: Start: 07-15-2018 T3 free mass conc T3, FREE (TRIDOTHYRONINE) (26405) [facility] Work Phone: Start: 07-15-2018 Thyrotropin Qn TSH (91565) [facility] Work Phone: Start: 07-15-2018 Urnls dip stick/tabl et reagent auto microscopy URINALYSIS, W/ MICRO (18572) [facility] Work Phone: Start: 07-15-2018 Urine albumin quantitative MICROALBUMIN: CREATININE RATIO (06143) AND (38739) [facility] Work Phone: Start: 07-15-2018 Comprehensive metabo lic panel METABOLIC PANEL, COMPREHENSIVE (87478) [facility] Work Phone: Start: 07-15-2018 Blood count complete auto&auto difrntl wbc CBC W/AUTO DIFF WBC (83527) [facility] Work Phone: Start: 07-15-2018 Protein mass conc LIPOPROTEIN, BLD, BY NMR (09906) [facility] Work Phone: Comment on above: this is full lipid p bernabe with NMR NOT just a lipoprotein a level Start: 02-01-2018 Provider Instruction s for Treatment [facility] Work Phone: Start: 12-31-2017 Procedure Education Eprescribe d prescriptions (G8553) [facility] Work Phone: Start: 12-31-2017 Provider Instruction s for Treatment [facility] Work Phone: Start: 12-31-2017 Assay of thyroid stimulating hormone tsh TSH (83463) [facility]; [facility] Work Phone: Start: 12-31-2017 Thyrotropin Qn TSH (19235) [facility] Work Phone: Start: 12-31-2017 Urnls dip stick/tabl et reagent auto microscopy URINALYSIS, W/ MICRO (86917) [facility] Work Phone: Start: 12-31-2017 Urine albumin quantitative MICROALBUMIN: CREATININE RATIO (68925) AND (66561) [facility] Work Phone: Start: 12-31-2017 Comprehensive metabo lic panel METABOLIC PANEL, COMPREHENSIVE (98020) [facility] Work Phone: Start: 12-31-2017 Lipoprotein blood qu an numbers & subclasses LIPOPROTEIN, BLD, BY NMR (69589) [facility]; [facility] Work Phone: Start: 12-31-2017 Protein mass conc LIPOPROTEIN, BLD, BY NMR (21154) [facility] Work Phone: Start: 12-31-2017 Blood count complete auto&auto difrntl wbc CBC W/AUTO DIFF WBC (94186) [facility] Work Phone: Start: 09-15-2017 Provider Instruction s for Treatment [facility] Work Phone: Start: 09-04-2017 Procedure Education Eprescribe d prescriptions (G8553) [facility] Work Phone: Start: 09-04-2017 Provider Instruction s for Treatment [facility] Work Phone: Start: 09-04-2017 Urnls dip stick/tabl et reagent auto microscopy URINALYSIS, W/ MICRO (79493) [facility] Work Phone: Start: 09-04-2017 Urine albumin quantitative MICROALBUMIN: CREATININE RATIO (85050) AND (94423) [facility] Work Phone: Start: 09-04-2017 Comprehensive metabo lic panel METABOLIC PANEL, COMPREHENSIVE (78233) [facility] Work Phone: Start: 09-04-2017 Blood count complete auto&auto difrntl wbc CBC W/AUTO DIFF WBC (00163) [facility] Work Phone: Start: 09-04-2017 Lipoprotein blood qu an numbers & subclasses LIPOPROTEIN, BLD, BY NMR (02636) [facility]; [facility] Work Phone: Start: 09-04-2017 Protein mass conc LIPOPROTEIN, BLD, BY NMR (23077) [facility] Work Phone: Start: 09-04-2017 Lipid panel LIPID PANEL (71350) Com [facility] Work Phone: Start: 09-04-2017 Assay of thyroid stimulating hormone tsh TSH (29238) [facility]; [facility] Work Phone: Start: 09-04-2017 Thyrotropin Qn TSH (67415) [facility] Work Phone: Start: 09-21-2015 Shingrix Vaccine (2 of 3) Shingrix Vaccine (2 of 3) [facility] Start: 2013 RSV Vaccine (1 - 1-d ose 60+ series) RSV Vaccine (1 - 1-dose 60+ series) [facility] Start: 2013 RSV Vaccine (1 - Ris k 60-74 years 1-dose series) RSV Vaccine (1 - Risk 60-74 years 1-dose series) [facility] Start: 11-17-2003 SHINGRIX VACCINE (1 of 2) SHINGRIX VACCINE (1 of 2) [facility] Start: 1998 COLOGUARD (FIT-DNA) COLOGUARD (FIT-D NA) [facility] Start: 1998 Colonoscopy COLONOSCOPY [facility] Start: 1998 COLORECTAL CANCER SCREENING COLORECTAL CANCER SCREENING [facility] Start: [address] COLONOGRAPHY [facility] Start: 1998 FECAL OCCULT BLOOD FECAL OCCULT BLOO D [facility] Start: 1998 Lipid panel Lipid Screening [facility] Start: 1998 LIPID SCREEN LIPID SCREEN [facility] Start: 1998 Screening for malign ant neoplasm of colon [facility] Start: 1998 SIGMOIDOSCOPY SIGMOIDOSCOPY [facility] Start: 1993 Mammography MAMMOGRAM [facility] Start: 1993 Screening for malign ant neoplasm of breast Mammogram Screening [facility] Start: 1972 Urine microalbumin profile [facility] Start: 11-17-1971 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 ANNUAL PCP TEAM CHRONIC DISEASE VISIT [facility] Start: 11-17-1971 Anxiety Screening Anxiety Screening [facility] Start: 11-17-1971 BP CONTROLLED (<130/80) BP CON TROLLED (<130/80) [facility] Start: 11-17-1971 Depression Screening Depression Scre ening [facility] Start: 11-17-1971 HEPATITIS C SCREENING HEPATITIS C SC [facility] Start: 11-17-1971 Hepatitis C screening Hepatitis C Sc [facility] Start: 11-17-1971 SPIROMETRY SPIROMETRY [facility] Start: 11-17-1959 PNEUMOCOCCAL: 65+ (1 - PCV) PNEUMOCOCCAL: 65+ (1 - PCV) [facility] Start: 05-18-1954 COVID-19 VACCINE (#1) COVID-19 VACCI NE (#1) [facility] End: 05-31-2023 Bone &/joint imaging 3 phase study NM BONE 3 PHASE Radiology Routine Pain due to internal orthopedic prosthetic devices, implants and grafts, initial encounter (HCC) Pain due to total right knee replacement, initial encounter (HCC) 1 Occurrences starting 05/01/2022 until 05/31/[address] [facility] Work Phone: Comment on above: 1 Occurrences starti ng 05/01/2022 until 05/31/2023 ECG COMPLETE ECG COMPLETE ECG Routine Pre-op evaluation Ordered: 11/12/[address] [facility] Work Phone: Comment on above: Ordered: 11/12/2023 End: 10-03-2024 NM Bone 3 Phase Views NM BONE 3 PHASE Radiology Routine Pain due to internal orthopedic prosthetic devices, implants and grafts, initial encounter (HCC) 1 Occurrences starting 09/04/2023 until 10/03/[address] [facility] Work Phone: Comment on above: 1 Occurrences starti ng 09/04/2023 until 10/03/2024 US Breast limited [facility] End: 12-14-2025 XR Knee AP and Lateral and Merchants XR KNEE POST OP 3V AP/LAT/MERCHANT RIGHT Radiology Routine Aftercare following right knee joint replacement surgery 1 Occurrences starting 11/14/2024 until 12/14/[address] [facility] Work Phone: Comment on above: 1 Occurrences starti ng 11/14/2024 until 12/14/2025 XR Knee AP and Later al and Merchants XR KNEE POST OP 3V AP/LAT/MERCHANT RIGHT Radiology Routine Aftercare following right knee joint replacement surgery 11/23/2024 10:36 AM EDT [facility] Work Phone: End: 05-28-2023 XR KNEE POST OP 3V AP/LAT/MERCHANT RIGHT XR KNEE POST OP 3V AP/LAT/MERCHANT RIGHT Radiology Routine Status post total right knee replacement Acute pain of right knee 1 Occurrences starting 04/28/2022 until 05/28/[address] [facility] Work Phone: Comment on above: 1 Occurrences starti ng 04/28/2022 until 05/28/2023 End: 06-20-2023 XR KNEE POST OP 3V AP/LAT/MERCHANT RIGHT XR KNEE POST OP 3V AP/LAT/MERCHANT RIGHT Radiology Routine Right knee pain, unspecified chronicity 1 Occurrences starting 05/21/2022 until 06/20/[address] [facility] Work Phone: Comment on above: 1 Occurrences starti ng 05/21/2022 until 06/20/2023 [facility] Work Phone: [facility] Work Phone: [facility] Work Phone: [facility] Work Phone: [facility] Work Phone: [facility] Work Phone: [facility] Work Phone: [facility] Work Phone: [facility] Work Phone: [facility] Work Phone: [facility] Work Phone: [facility] Work Phone: [facility] Work Phone: [facility] Work Phone: [facility]; [facility] Work Phone: [facility]; [facility] Work Phone: [facility]; [facility] Work Phone: [facility] Immunizations Immunization Date Immunization Notes Care Provider Mumtaz liu 05-17-2022 influenza, high-dose , quadrivalent vaccine (FLUZONE HIGH DOSE QUADRIVALENT) Gyant Provider [facility] 05-17-2022 influenza, seasonal, injectable Deanna Aponte DO Work Phone: [facility]; [facility] Work Phone: 05-17-2022 influenza virus vaccine, unspecified formulation Vidal Schmitt PA-C Work Phone: [facility] 06-17-2021 COVID-Pfizer (10 MCG/0.2 ML) Deanna Aponte DO Work Phone: [facility]; [facility] Work Phone: 05-09-2021 influenza, seasonal, injectable Deanna Aponte DO Work Phone: [facility]; [facility] Work Phone: 10-05-2020 COVID-19 (Pfizer) [facility] Work Phone: 09-18-2020 COVID-19 (Pfizer) [facility] Work Phone: 07-27-2016 influenza, seasonal, injectable Deanna Aponte [facility] Work Phone: 07-27-2016 pneumococcal polysaccharide vaccine, 23 valent Deanna Aponte [facility] Work Phone: 07-27-2015 hepatitis B vaccine, adult dosage Deanna Aponte [facility] Work Phone: 07-27-2015 zoster vaccine, live Deanna Aponte [facility] Work Phone: Payers Date Payer Category Payer Private Health Insurance [id number] 2024 Private Health Insurance [id number] 2024 Self-pay [id number] 2018 Unknown 2018 Unknown [id number] 2018 Medicare [id number] 2018 Medicare [id number] 2017 Unknown [id number] 2012 Private Health Insurance [id number] 1955 Unknown [id number] Unknown [id number] [id number] Unknown [id number] 2.16.8 [id number] Unknown [id number] 2.16.8 [id number] Unknown [id number] 2.16.8 [id number] Unknown [id number] 2.16.8 [id number] Unknown [id number] 2.16.8 [id number] Unknown [id number] 2.16.8 [id number] Social History Date Type Detail Facility Start: 12-12-2022 End: 03-09-2023 Caffeine Use [facility] Work Phone: Comment on above: qd none Exercise History: [facility] regularly[facility] Work [facility]: Living Situation[facility] Work [facility]: Exercise History: Exercise History: Compr ens[facility]; [facility] Work Phone: [facility] Work Phone: Start: 02-03-2018 End: 09-02-2023 Tobacco smoking status NHIS Never smoked tobacco [facility] Start: 02-03-2018 End: 05-30-2022 Tobacco use and exposure Smokeless tobacco non-user [facility] Start: 02-18-2019 End: 11-23-2024 Alcohol intake Current non-drinker of alcohol (finding) [facility] Start: 1955 Sex Assigned At Not on file C [facility] Start: 04-21-2022 End: 06-10-2022 Exposure to SARS-CoV-2 (event) Not sure [facility] Start: 07-01-2022 End: 09-02-2023 Tobacco smoking status MIIS Unknown if ever smoked [facility] Start: 1955 Sex Assigned At Female W [facility] Start: 12-12-2022 End: 03-09-2023 Tobacco use panel [facility] PHQ2 Score 0 [place] Cindy montalvo Has the electric, [employer], oil, or water company threatened to shut off services in your home in past 12Mo No [facility] (I/We) worried wheth er (my/our) food would run out before (I/we) got money to buy more. Never true [facility] Medical Equipment Procedure Code Equipment Code Equipment Origin al Text Equipment Identifier Dates Tiathlon Cr Tibi al Bearing Insert X3 11mm Size 3 [id number] Start: 01-19-2019 Baseplate Triathalon 3 Tritanium 44mm 67mm Tibial Sterile Latex Free - [id number] Start: 01-19-2019 Cement Simplex P Tobramycin Bone Full Dose Radiopaque Preblend Sterile - [id number] Start: 05-15-2022 Component Triathlon 3 Femoral Cruciate Retain Cemented Knee Right - [id number] Start: 05-15-2022 Component Triathlon 35mm 10mm Patellar Asymmetric Knee - [id number] Start: 05-15-2022 Cement Simplex P Tobramycin Bone Full Dose Radiopaque Preblend Sterile - [id number] Start: 05-15-2022 Cement Simplex P Tobramycin Bone Full Dose Radiopaque Preblend Sterile - [id number] Start: 05-15-2022 Component Triathlon 3 Pa Femoral Cruciate Retain Bead Knee Right - [id number] Start: 01-19-2019 Component Tritanium 35mm Metal 10mm Patellar Asymmetric Knee - [id number] Start: 01-19-2019 Baseplt Tib Alpl y Cs Sz 3 13mm - [id number] Start: 05-15-2022 Cement Simplex P Tobramycin Bone Full Dose Radiopaque Preblend Sterile - [id number] Start: 12-03-2023 Cement Simplex P Tobramycin Bone Full Dose Radiopaque Preblend Sterile - [id number] Start: 12-03-2023 Cement Simplex P Tobramycin Bone Full Dose Radiopaque Preblend Sterile - [id number] Start: 12-03-2023 Drm-Tx-R-Kind Implant - [id number] Start: 12-03-2023 Comment on above: Description: Epunchitrep bone preparation kit Small cement restrictor REF [id number] Medium cement restrictor REF [id number] Baseplate Triathlon 2 [place] Cocr Tibial Total Stabilize Cemented Knee - [id number] Start: 12-03-2023 Augment Triathlo n 3 10mm Femoral Total Stabilize Knee Right - [id number]_imp Start: 12-03-2023 Augment Triathlo n 3 5mm Femoral Total Stabilized Right Distal Knee - [id number] Start: 12-03-2023 Component Triathlon 3 Cocr Femoral Total Stabilizer Knee Right - [id number] Start: 12-03-2023 Augment Triathlo n 2 10mm Tibial Total Stabilize Right Medial Left Lateral - [id number] Start: 12-03-2023 Augment Triathlo n 2 10mm Tibial Total Stabilize Left Medial Right Lateral - [id number] Start: 12-03-2023 Stem Triathlon 9 mm Cocr 100mm Femoral Cemented Total Stabilize Knee - [id number] Start: 12-03-2023 Augment Triathlo n 3 5mm Femoral Total Stabilized Posterior Knee - [id number] Start: 12-03-2023 Augment Triathlo n A [facility] Tritanium Tibial Symmetric Sterile Latex Free - [id number] Start: 12-03-2023 Imp Knee Fem Antony m Tri 9mm [id number] Start: 12-03-2023 Functional Status Date Assessment Result Facility 12-04-2023 Are you deaf, or do you have serious difficulty hearing No 12/04/2023 9:53 AM Sima Martinez RN No [facility] 12-04-2023 Are you blind, or do you have serious difficulty seeing, even when wearing glasses No 12/04/2023 9:53 AM Sima Martinez, ANDRES No [facility] 12-04-2023 Do you have serious difficulty walking or climbing stairs No 12/04/2023 9:53 AM Sima Martinez RN No [facility] 12-04-2023 Do you have difficul ty dressing or bathing No 12/04/2023 9:53 AM Sima Martinez RN No [facility] 12-04-2023 Because of a physica l, mental, or emotional condition, do you have difficulty doing errands alone such as visiting a physician's office or shopping Yes 12/04/2023 9:53 AM Sima Martinez RN Yes [facility] 01-07-2021 LP-IR Score LP-IR Score 50 [facility]; [facility] Work Phone: Comment on above: INSULIN RESISTANCE M ZAYNAB <--Insulin Sensitive Insulin Resistant--> Percentile in Reference PopulationInsulin Resistance ScoreLP-IR Score Low 25th 50th 75th High <27 27 45 63 >63LP-IR Score is inaccurate if patient is non-fasting. .The LP-IR score is a laboratory developed index that has beenassociated with insulin resistance and diabetes risk and should beused as one component of a physician's clinical assessment. Test(s) 651837-YXI-X ; 265265-CWS-M; 817611-Vagswwnsfvgha; 927674-Aedkpiwpanu, Total; 975825-MSV-R (Total); 791984-Epxnd LDL-P; 199483-KXG Size; 536543-YG-LN Scorewas developed and its performance characteristics determinedby [employer]. It has not been cleared or approved by the Foodand Drug Administration.PATIENT WAS FASTINGPERFORMED BY: LabCAS Medical SystemsBristol-Myers Squibb Children's HospitalEfapymoymz5136 [facility] [id number] BY: LabCAS Medical SystemsHampton Behavioral Health CenterYnzilz0737 [facility] [id number] 07-10-2020 LP-IR Score LP-IR Score 45 [facility]; [facility] Work Phone: Comment on above: INSULIN RESISTANCE M ARKER <--Insulin Sensitive Insulin Resistant--> Percentile in Reference PopulationInsulin Resistance ScoreLP-IR Score Low 25th 50th 75th High <27 27 45 63 >63LP-IR Score is inaccurate if patient is non-fasting. .The LP-IR score is a laboratory developed index that has beenassociated with insulin resistance and diabetes risk and should beused as one component of a physician's clinical assessment. Test(s) 795182-WKH-C ; 076502-MEP-O; 879291-Ybbvnncksazmx; 385675-Caujkltsycy, Total; 433573-WBM-T (Total); 775101-Tnsnp LDL-P; 103805-ZOG Size; 682966-DL-PH Scorewas developed and its performance characteristics determinedby [employer]. It has not been cleared or approved by the Foodand Drug Administration.PATIENT WAS FASTINGPERFORMED BY: [employer] [address] [id number] BY: LOAG [facility] [id number] 01-03-2020 LP-IR Score LP-IR Score 51 [facility] Work Phone: Comment on above: INSULIN RESISTANCE Monique WORTHY <--Insulin Sensitive Insulin Resistant--> Percentile in Reference PopulationInsulin Resistance ScoreLP-IR Score Low 25th 50th 75th High <27 27 45 63 >63LP-IR Score is inaccurate if patient is non-fasting. .The LP-IR score is a laboratory developed index that has beenassociated with insulin resistance and diabetes risk and should beused as one component of a physician's clinical assessment. Test(s) 292079-NXR-I ; 626589-UXR-N; 240049-LAM-D; 147229-Xhfucdrzeaqxd; 892085-Lqflbnspblm, Total; 485882-WEA-L (Total);477229-Pwqlf LDL-P; 157759-DBW Size; 239508-NC-XS Scorewas developed and its performance characteristics determinedby [employer]. It has not been cleared or approved by the Foodand Drug Administration.PATIENT WAS FASTINGPERFORMED BY: [employer] [address] [id number] BY: [employer] [facility] [id number] 12-29-2018 LP-IR Score LP-IR Score 65 [facility] Work Phone: Comment on above: INSULIN RESISTANCE M ARKER <--Insulin Sensitive Insulin Resistant--> Percentile in Reference PopulationInsulin Resistance ScoreLP-IR Score Low 25th 50th 75th High <27 27 45 63 >63LP-IR Score is inaccurate if patient is non-fasting. .The LP-IR score is a laboratory developed index that has beenassociated with insulin resistance and diabetes risk and should beused as one component of a physician's clinical assessment. TheLP-IR score listed above has not been cleared by the [place] Food andDrug Administration. PATIENT WAS FASTINGP ERFORMED BY: [employer] [facility] [id number] BY: [email or web address] [facility] [id number] 09-24-2018 LP-IR Score LP-IR Score 56 [facility] Work Phone: Comment on above: INSULIN RESISTANCE M CARISSAKER <--Insulin Sensitive Insulin Resistant--> Percentile in Reference PopulationInsulin Resistance ScoreLP-IR Score Low 25th 50th 75th High <27 27 45 63 >63LP-IR Score is inaccurate if patient is non-fasting. .The LP-IR score is a laboratory developed index that has beenassociated with insulin resistance and diabetes risk and should beused as one component of a physician's clinical assessment. TheLP-IR score listed above has not been cleared by the [place] Food andDrug Administration. PATIENT WAS FASTINGP ERFORMED BY: [employer] [facility] [id number] BY: [employer] [id number] [facility] [id number] 07-15-2018 LP-IR Score LP-IR Score 75 [facility] Work Phone: Comment on above: INSULIN RESISTANCE M ARKER <--Insulin Sensitive Insulin Resistant--> Percentile in Reference PopulationInsulin Resistance ScoreLP-IR Score Low 25th 50th 75th High <27 27 45 63 >63LP-IR Score is inaccurate if patient is non-fasting. .The LP-IR score is a laboratory developed index that has beenassociated with insulin resistance and diabetes risk and should beused as one component of a physician's clinical assessment. TheLP-IR score listed above has not been cleared by the [place] Food andDrug Administration. this is full lipid p bernabe with NMR NOT just a lipoprotein a level; PATIENT WAS FASTINGPERFORMED BY: [facility] Bkamahnueb6586 [facility] [id number] Mental Status Date Assessment Result Facility 12-04-2023 Because of a physica l, mental, or emotional condition, do you have serious difficulty concentrating, remembering, or making decisions No 12/04/2023 9:53 AM EDT Sima Jensen, RN No [facility] Clinical Notes 01-19-2019 to 03-06-2025 Note Date & Type Note Facility 03-06-2025 Radiology Diagnostic study note [facility] Imaging Services [address] [place] [address] Breast Limited Unilateral MR#: [id number] Acct: [id number] Name: MARIAJOSE MARCELINO Rep #: [id number] : 1955 F 69 From: [facility] [place] DO PCP: Dr. Deanna Aponte DO Status: RE G CLI Study:Breast Limited Unilateral Date of Exam: 03/06/25 Exam# [id number] Ordering Dr: Shruti De La Cruz NP [employer] PROCEDURE: BREAST LIMITED UNILATERAL 03/06/2025 REASON FOR EXAM: F, Age 69 y/o , LEFT BREAST PAIN COMPARISON: Mammogram studies dated 03/06/2025, 09/06/2024, and 09/02/2023.. TECHNIQUE: BREAST LIMITED UNILATERAL FINDINGS: There is no ultrasound abnormality identified in the lower outer quadrant of theleft breast to correlate to the breast pain. This area appears to represent normal breast tissue. No suspicious solid or cystic masses are seen. The skin is not abnormally thickened. US/Breast Limited Unilateral IMPRESSION: Unremarkable left breast ultrasound exam. The patient should return in 1 year for routine yearly screening mammography. BI-RADS 1: NEGATIVE RECOMMENDATION: Routine annual follow-up in 1 Year Reading Location: [facility] CC: KVNG De La Cruz; Dr. Deanna Aponte, DO ~ Milieu Coordinator: Signed [facility] 02-22-2025 Evaluation note Diagnosis Onset Date Resolution Breast pain, left acute February 222024 11:30am [facility] Work Phone: 1(979) 925-374304-30-2025 NoteHNO ID: [id number] Author: YANIRA GARCIA MD Service: ? Author Type: Physician Type: Progress Notes Filed: 12/21/2024 22:23 Note Text: DR. GARCIA- POST-OP KNEE Post-Op F/U Office Visit Mariajose Marcelino presents today for a 1 year status post revision Right TKA. Post-operative recovery was uneventful. Patient's rating of condition: improving Comments: patient reports improvement compared to her preoperative condition Does the Pt. still experience pain? PAIN EVALUATION 2024 1240 Pain Level: 0 Pain Location: Knee-Right Duration Amount of Time: 1 Duration Units: Years Frequency: Intermittent Functional difficulties: None Physical Therapy: Completed course of therapy Pain Medication: Non-narcotic Ambulating without assistance. Medications and Allergies reviewed and verified. EXAM: GEN: AANDO x3, NAD SKIN:Appropriate postop appearance Incision intact Incision well healed RightKnee: ROM: Flexion/Extension:0 degrees to 120 degrees Pain with ROM:No Mal-alignment: No Effusion: None Non Tender to palpation of the medial , lateral , and patellofemoral joint line(s). Stability:Anterior/Posterior- Yes, stable and Varus/Valgus- Yes, stable Quad strength: normal HIP: range of motion no loss ROM NV: intact and Jeramy's negative IMAGING: Xrays: XR KNEE POST OP 3V AP/LAT/MERCHANT RIGHT Narrative: * * *Final Report* * * DATE OF EXAM: Nov 23 2024 10:36AM TYSON 5209 - XR KNEE 3V AP/LAT/MERCHANT RT / PROCEDURE REASON: multiple diagnoses * * * * Physician Interpretation * * * * EXAMINATION / TECHNIQUE: XR KNEE 3V AP/LAT/MERCHANT RT HISTORY: Follow-up for right knee replacement Aftercare following right knee joint replacement surgery Aftercare following right knee joint replacement surgery COMPARISON: 12/18/2023. FINDINGS: Status post right knee arthroplasty with orthopedic hardware in standard position and alignment. There is no periprosthetic lucency or fracture. Impression: IMPRESSION: Status post right arthroplasty without evidence of complication. Milieu Coordinator: [facility] Transcribe Date/Time: Nov 28 2024 8:05P Dictated by : NYDIA MIX MD This examination was interpreted and the report reviewed and electronically signed by: NYDIA MIX MD on Nov 28 2024 8:06PM EST IMPRESSION/PLAN: 69 year old female s/p revision Right TKA No complaints or limitations. At normal post-operative stage of recovery. Plan: 1. Continue independent range of motion/strengthening exercises 2. We reviewed total knee precautions including antibiotic prophylactic protocols for dental procedures 3. Follow-up 5 years for repeat clinical/radiographic evaluation or sooner should she develop any new orthopedic problems Yanira Garcia MD Electronic [facility]Fire[facility]04[facility]30[facility] History of Present illness Narrative* Yanira Garcia MD - 11/23/2024 11:[address] GARCIA- POST-OP KNEE Post-Op F/U Office Visit Mariajose Marcelino presents today for a 1 year status post revision Right TKA. Post- operative recovery was uneventful. Patient's rating of condition: improving Comments: patient reports improvement compared to her preoperative condition Does the Pt. still experience pain? PAIN EVALUATION 2024 1240 Pain Level: 0 Pain Location: Knee-Right Duration Amount of Time: 1 Duration Units: Years Frequency: Intermittent Functional difficulties: None Physical Therapy: Completed course of therapy Pain Medication: Non-narcotic Ambulating without assistance. Medications and Allergies reviewed and verified. EXAM: GEN: A&O x3, NAD SKIN:Appropriate postop appearance Incision intact Incision well healed RightKnee: ROM: Flexion/Extension:0 degrees to 120 degrees Pain with ROM:No Mal-alignment: No Effusion: None Non Tender to palpation of the medial , lateral , and patellofemoral joint line(s). Stability:Anterior/Posterior- Yes, stable and Varus/Valgus- Yes, stable Quad strength: normal HIP: range of motion no loss ROM NV: intact and Jeramy's negative IMAGING: Xrays: XR KNEE POST OP 3V AP/LAT/MERCHANT RIGHT Narrative: * * *Final Report* * * DATE OF EXAM: Nov 23 2024 10:36AM TYSON 5209 - XR KNEE 3V AP/LAT/MERCHANT RT / PROCEDURE REASON: multiple diagnoses * * * * Physician Interpretation * * * * EXAMINATION / TECHNIQUE: XR KNEE 3V AP/LAT/MERCHANT RT HISTORY: Follow-up for right knee replacement Aftercare following right knee joint replacement surgery Aftercare following right knee joint replacement surgery COMPARISON: 12/18/2023. FINDINGS: Status post right knee arthroplasty with orthopedic hardware in standard position and alignment. There is no periprosthetic lucency or fracture. Impression: IMPRESSION: Status post right arthroplasty without evidence of complication. Milieu Coordinator: JANAE Transcribe Date/Time: Nov 28 2024 8:05P Dictated by : NYDIA MIX MD This examination was interpreted and the report reviewed and electronically signed by: NYDIA MIX MD on Nov 28 2024 8:06PM EST IMPRESSION/PLAN: 69 year old female s/p revision Right TKA No complaints or limitations. At normal post-operative stage of recovery. Plan: 1. Continue independent range of motion/strengthening exercises 2. We reviewed total knee precautions including antibiotic prophylactic protocols for dental procedures 3. Follow-up 5 years for repeat clinical/radiographic evaluation or sooner should she develop any new orthopedic problems Yanira Garcia MD Electronic Signature [facility]04-[facility]25 History of Present illness Narrative* Guadalupe Aponte Tech - 11/23/2024 10:30 AM EDT Radiology Service Progress Note PATIENT NAME: Mariajose Marcelino DATE OF SERVICE: November 23, 2024 TIME: 10:36 AM PATIENT IDENTITY VERIFICATION COMPLETED USING TWO (2) IDENTIFIERS: Name and Date of confirmedby patient verbally. FALL SCREENING: Has the patient had 2 falls in the last year or 1 fall with injury or currently using an Ambulatory Assistive Device (Walker, Cane, Wheelchair, Crutches, etc.)? No PATIENT GENDER DATA: Assigned female at . status: : No status:NO. 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 Bearing PERIPHERAL IV DATA: Not applicable SIGNED BY: Rashad Guaman November 23, 2024 10:36 AM documented in this encounterFlower Hospital04-30-2025 NoteHNO ID: [id number] Author: GUADALUPE APONTE Tech Service: Radiology Author Type: [place] Laborer Type: Progress Notes Filed: 11/23/2024 10:36 Note Text: Radiology Service Progress Note PATIENT NAME: Mariajose Marcelino DATE OF SERVICE: November 23, 2024 TIME: 10:36 AM PATIENT IDENTITY VERIFICATION COMPLETED USING TWO (2) IDENTIFIERS: Name and Date of confirmed by patient verbally. FALL SCREENING: Has the patient had 2 falls in the last year or 1 fall with injury or currently using an Ambulatory Assistive Device (Walker, Cane, Wheelchair, Crutches, etc.)? No PATIENT GENDER DATA: Assigned female at . status: : No status: NO. 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 Bearing PERIPHERAL IV DATA: Not applicable SIGNED BY: Rasahd Guaman November 23, 2024 10:36 AMGeorgetown Behavioral [id number] Instructions* Patient Instructions* Casey Garcia MD - 08/05/2024 9:29 AM EST SINUSITIS: You have sinusitis, an infection of the sinus cavities around the nose. This infection usually follows a respiratory illness; it can also be related to allergies, changes in atmospheric pressure (flying, diving), or anything that blocks nasal drainage. Symptoms include: headache, facial pain, a thick nasal discharge, congestion, and cough. The treatment includes antibiotic therapy, increasing oral fluids, and pain medication if needed. Nose spray decongestants (Afrin, Bowen-Synephrine) and oral decongestants may be needed to reduce congestion and drainage. Rarely the sinus must be irrigated to remove the infected material. Sinusitis can lead to serious complications by spreading to other areas such as the eye or brain. Please call your doctor or return here right away if you have any of the following more serious symptoms: Unusual swelling around the eye or trouble seeing. Increasing pain, severe headache, or toothache. Nausea, vomiting, or unusual drowsiness. documented in this encounterFlower Hospital01-10-2025 NoteHNO ID: [id number] Author: CASEY GARCIA MD Service: ? Author Type: Physician Type: Progress Notes Filed: 08/05/2024 09:30 Note Text: Mariajose Marcelino is a 68 year old female who presents with URI (Sinus drainage/congestion, productive cough, watery eyes, and sore throat x's 6 days) Sinusitis This is a new problem. The current episode started in the past 7 days. The problem has been gradually worsening since onset. There has been no fever. Associated symptoms include congestion, coughing, sinus pressure and a sore throat. Pertinent negatives include no chills, headaches, hoarse voice, neck pain or shortness of breath. Past treatments include nothing. PAST MEDICAL HISTORY Diagnosis Date Asthma due to seasonal allergies Hyperlipidemia Hypertension Hypothyroidism ACTIVE PROBLEM LIST Primary Osteoarthritis of Left Knee Essential Hypertension Acquired Hypothyroidism Other Hyperlipidemia Mild Intermittent Asthma Without Complication Status Post Total Right Knee Replacement S/P Revision of Total Knee, Right Chronic Pain of Right Knee Muscle Weakness (Generalized) Localized Edema Current Outpatient Medications Medication Sig Dispense Refill calcium carbonate (OS-TAMMY 500) 500 mg calcium (1,250 mg) tablet Take 1 tablet by mouth once daily. clindamycin (CLEOCIN) 300 mg capsule Take two capsules by mouth one hour prior to dental appointment. 2 capsule 3 cholecalciferol, vitamin D3, (VITAMIN D3 ORAL) Take 1 capsule by mouth once daily. Lactobacillus acidophilus (PROBIOTIC ORAL) Take 1 capsule by mouth once daily. albuterol sulfate (PROAIR HFA INHALATION) Inhale 1 Puff as instructed every 4 hours as needed (wheezing sob). rosuvastatin (CRESTOR) 40 mg tablet Take 40 mg by mouth once daily. estradiol (ESTRACE) 0.01 % (0.1 mg/gram) vaginal cream Use 1 g vaginally twice a week. levothyroxine (SYNTHROID) 50 mcg tablet Take 1 tablet by mouth daily before breakfast. montelukast (SINGULAIR) 10 mg tablet Take 1 tablet by mouth daily at bedtime. therapeutic multivitamin (THERA VITAMIN) tablet Take 1 tablet by mouth once daily. acetaminophen (TYLENOL) 500 mg tablet Take 2 tablets by mouth every 8 hours as needed for pain. 90 tablet 0 ascorbic acid, vitamin C, (VITAMIN C) 500 mg tablet Take 1 tablet by mouth two times a day with meals for 27 doses. 27 tablet 0 aspirin, enteric coated (ASPIRIN, ENTERIC COATED) 81 mg EC tablet Take 1 tablet by mouth two times a day for 28 days. 56 tablet 0 No current facility-administered medications for this visit. Social History Tobacco Use Smoking status: Never Smokeless tobacco: Never Substance Use Topics Alcohol use: No Drug use: No Alcohol Use: No Tobacco Use: Never No family history on file. Review of Systems Constitutional: Negative for chills, fever and malaise/fatigue. HENT: Positive for congestion, sinus pressure and sore throat. Negative for hoarse voice. PND, yellow ND Respiratory: Positive for cough and sputum production. Negative for shortness of breath and wheezing. Gastrointestinal: Negative for abdominal pain, diarrhea, nausea and vomiting. Musculoskeletal: Negative for neck pain. Neurological: Negative for headaches. BP 139/76 Pulse 78 Temp (Src) 98.3 (Oral) Resp 18 Ht 5' 0 (1.52m) Wt 152 lb (68.9kg) SpO2 97% BMI 29.69 kg/(m2). Physical Exam Vitals and nursing note reviewed. Constitutional: Appearance: Normal appearance. She is not ill-appearing. HENT: Right Ear: Tympanic membrane normal. Left Ear: Tympanic membrane normal. Nose: Congestion and rhinorrhea present. Mouth/Throat: Mouth: Mucous membranes are moist. Pharynx: Oropharynx is clear. Eyes: Extraocular Movements: Extraocular movements intact. Conjunctiva/sclera: Conjunctivae normal. Pupils: Pupils are equal, round, and reactive to light. Cardiovascular: Rate and Rhythm: Normal rate and regular rhythm. Pulmonary: Effort: Pulmonary effort is normal. No respiratory distress. Breath sounds: Normal breath sounds. No wheezing or rhonchi. Lymphadenopathy: Cervical: Cervical adenopathy present. Skin: General: Skin is warm and dry. Neurological: General: No focal deficit present. Mental Status: She is alert and oriented to person, place, and time. ASSESSMENT/PLAN: 1. Bacterial sinusitis - ICD9: 473.9, 041.9, ICD10: J32.9, B96.89 - Supportive care with plenty of fluids, rest, and analgesia prn. - albuterol as needed for SOB - AZITHROMYCIN 250 MG TABLET Casey Garcia [facility]01-10-2025 History of Present illness Narrative* Casey Garcia MD - 08/05/2024 9:20 AM EST Mariajose Marcelino is a 68 year old female who presents with URI (Sinus drainage/congestion, productive cough, watery eyes, and sore throat x's 6 days) Sinusitis This is a new problem. The current episode started in the past 7 days. The problem has been gradually worsening since onset. There has been no fever. Associated symptoms include congestion, coughing,sinus pressure and a sore throat. Pertinent negatives include no chills, headaches, hoarse voice, neck pain or shortness of breath. Past treatments include nothing. PAST MEDICAL HISTORY Diagnosis Date Asthma due to seasonal allergies Hyperlipidemia Hypertension Hypothyroidism ACTIVE PROBLEM LIST Primary Osteoarthritis of Left Knee Essential Hypertension Acquired Hypothyroidism Other Hyperlipidemia Mild Intermittent Asthma Without Complication Status Post Total Right Knee Replacement S/P Revision of Total Knee, Right Chronic Pain of Right Knee Muscle Weakness (Generalized) Localized Edema Current Outpatient Medications Medication Sig Dispense Refill calcium carbonate (OS-TAMMY 500) 500 mg calcium (1,250 mg) tablet Take 1 tablet by mouth once daily. clindamycin (CLEOCIN) 300 mg capsule Take two capsules by mouth one hour prior to dental appointment. 2 capsule 3 cholecalciferol, vitamin D3, (VITAMIN D3 ORAL) Take 1 capsule by mouth once daily. Lactobacillus acidophilus (PROBIOTIC ORAL) Take 1 capsule by mouth once daily. albuterol sulfate (PROAIR HFA INHALATION) Inhale 1 Puff as instructed every 4 hours as needed (wheezing sob). rosuvastatin (CRESTOR) 40 mg tablet Take 40 mg by mouth once daily. estradiol (ESTRACE) 0.01 % (0.1 mg/gram) vaginal cream Use 1 g vaginally twice a week. levothyroxine (SYNTHROID) 50 mcg tablet Take 1 tablet by mouth daily before breakfast. montelukast (SINGULAIR) 10 mg tablet Take 1 tablet by mouth daily at bedtime. therapeutic multivitamin (THERA VITAMIN) tablet Take 1 tablet by mouth once daily. acetaminophen (TYLENOL) 500 mg tablet Take 2 tablets by mouth every 8 hours as needed for pain. 90 tablet 0 ascorbic acid, vitamin C, (VITAMIN C) 500 mg tablet Take 1 tablet by mouth two times a day with meals for 27 doses. 27 tablet 0 aspirin, enteric coated (ASPIRIN, ENTERIC COATED) 81 mg EC tablet Take 1 tablet by mouth two times a day for 28 days. 56 tablet 0 No current facility-administered medications for this visit. Social History Tobacco Use Smoking status: Never Smokeless tobacco: Never Substance Use Topics Alcohol use: No Drug use: No Alcohol Use: No Tobacco Use: Never No family history on file. Review of Systems Constitutional: Negative for chills, fever and malaise/fatigue. HENT: Positive for congestion, sinus pressure and sore throat. Negative for hoarse voice. PND, yellow ND Respiratory: Positive for cough and sputum production. Negative for shortness of breath and wheezing. Gastrointestinal: Negative for abdominal pain, diarrhea, nausea and vomiting. Musculoskeletal: Negative for neck pain. Neurological: Negative for headaches. BP 139/76 Pulse 78 Temp (Src) 98.3 (Oral) Resp 18 Ht 5' 0 (1.52m) Wt 152 lb (68.9kg) SpO2 97% BMI 29.69 kg/(m^2). Physical Exam Vitals and nursing note reviewed. Constitutional: Appearance: Normal appearance. She is not ill-appearing. HENT: Right Ear: Tympanic membrane normal. Left Ear: Tympanic membrane normal. Nose: Congestion and rhinorrhea present. Mouth/Throat: Mouth: Mucous membranes are moist. Pharynx: Oropharynx is clear. Eyes: Extraocular Movements: Extraocular movements intact. Conjunctiva/sclera: Conjunctivae normal. Pupils: Pupils are equal, round, and reactive to light. Cardiovascular: Rate and Rhythm: Normal rate and regular rhythm. Pulmonary: Effort: Pulmonary effort is normal. No respiratory distress. Breath sounds: Normal breath sounds. No wheezing or rhonchi. Lymphadenopathy: Cervical: Cervical adenopathy present. Skin: General: Skin is warm and dry. Neurological: General: No focal deficit present. Mental Status: She is alert and oriented to person, place, and time. ASSESSMENT/PLAN: 1. Bacterial sinusitis - ICD9: 473.9, 041.9, ICD10: J32.9, B96.89 - Supportive care with plenty of fluids, rest, and analgesia prn. - albuterol as needed for SOB - AZITHROMYCIN 250 MG TABLET Casey Garcia MD documented [facility]-30-[facility]24 NoteHNO ID: [id number] Author: YANIRA GARCIA MD Service: ? Author Type: Physician Type: Progress Notes Filed: 06/22/2024 17:06 Note Text: DR. GARCIA- POST-OP KNEE Post-Op F/U Office Visit Mariajose Marcelino presents today for a 6 months status post revision Right TKA. Post-operative recovery was uneventful. Patient's rating of condition: improving Comments: None Does the Pt. still experience pain? Patient reports minimal pain Functional difficulties: Stair climbing Physical Therapy: Completed course of therapy Pain Medication: None Ambulating without assistance. Medications and Allergies reviewed and verified. EXAM: GEN: AANDO x3, NAD SKIN:Appropriate postop appearance Incision intact Incision well healed LeftKnee: ROM: Flexion/Extension:0 degrees to 115 degrees Pain with ROM:No Mal-alignment: No Effusion: None Non Tender to palpation of the medial , lateral , and patellofemoral joint line(s). Stability:Anterior/Posterior- Yes, stable and Varus/Valgus- Yes, stable Quad strength: normal HIP: range of motion no loss ROM NV: intact and Jeramy's negative IMAGING: Xrays: No x-rays today IMPRESSION/PLAN: 68 year old female s/p revision Right TKA At normal post-operative stage of recovery. Plan: 1. Continue independent range of motion/strengthening exercises 2. Continue total knee precautions 3. Follow-up 6 months for repeat clinical/radiographic evaluation Yanira Garcia MD [facility] History of Present illness Narrative* Yanira Garcia MD - 05/25/2024 10:[address] GARCIA- POST-OP KNEE Post-Op F/U Office Visit Mariajose Marcelino presents today for a 6 months status post revision Right TKA. Post-operative recoverywas uneventful. Patient's rating of condition: improving Comments: None Does the Pt. still experience pain? Patient reports minimal pain Functional difficulties: Stair climbing Physical Therapy: Completed course of therapy Pain Medication: None Ambulating without assistance. Medications and Allergies reviewed and verified. EXAM: GEN: A&O x3, NAD SKIN:Appropriate postop appearance Incision intact Incision well healed LeftKnee: ROM: Flexion/Extension:0 degrees to 115 degrees Pain with ROM:No Mal-alignment: No Effusion: None Non Tender to palpation of the medial , lateral , and patellofemoral joint line(s). Stability:Anterior/Posterior- Yes, stable and Varus/Valgus- Yes, stable Quad strength: normal HIP: range of motion no loss ROM NV: intact and Jeramy's negative IMAGING: Xrays: No x-rays today IMPRESSION/PLAN: 68 year old female s/p revision Right TKA At normal post-operative stage of recovery. Plan: 1. Continue independent range of motion/strengthening exercises 2. Continue total knee precautions 3. Follow-up 6 months for repeat clinical/radiographic evaluation Yanira Garcia MD Electronic Signature documented in this encounterFlower [facility]07-25-2024 NoteHNO ID: [id number] Author: YANIRA GARCIA MD Service: ? Author Type: Physician Type: Progress Notes Filed: 02/18/2024 13:07 Note Text: DR. 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 Patient's rating of condition: improving Comments: None Does the Pt. still experience pain? PAIN EVALUATION 01/22/2024 1343 Pain Level: 1 Pain Location: Knee-Right Description: Tightness;Aching Duration Amount of Time: -- ongoing Frequency: Intermittent Intervention/Comfort measure: Cold;Exercise Functional difficulties: Stair climbing Physical Therapy: Yes Pain Medication: Yes Ambulating with assistance. Medications and Allergies reviewed and verified. EXAM: GEN: AANDO x3, NAD SKIN:Appropriate postop appearance Incision intact Incision well healed RightKnee: ROM: Flexion/Extension:0 degrees to 115 degrees Pain with ROM:No Mal-alignment: No Effusion: None Tender to palpation of the medial joint line(s). Stability:Anterior/Posterior- Yes, stable and Varus/Valgus- Yes, stable Quad strength: normal HIP: range of motion no loss ROM NV: intact and Jeramy's negative IMAGING: Xrays: No x-rays today IMPRESSION/PLAN: 68 year old female s/p revision Right TKA At normal post-operative stage of recovery. Plan: 1. Continue range of motion/strengthening exercises and weightbearing as tolerated 2. Continue total knee precautions as discussed 3. Follow-up for repeat clinical evaluation Yanira Garcia MD [facility]-25-[facility] History of Present illness Narrative* Yanira Garcia MD - 02/18/2024 1:03 PM EDT Images from the original note were not included. DR. 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 Patient's rating of condition: improving Comments: None Does the Pt. still experience pain? PAIN EVALUATION 01/22/2024 1343 Pain Level: 1 Pain Location: Knee-Right Description: Tightness;Aching Duration Amount of Time: -- ongoing Frequency: Intermittent Intervention/Comfort measure: Cold;Exercise Functional difficulties: Stair climbing Physical Therapy: Yes Pain Medication: Yes Ambulating with assistance. Medications and Allergies reviewed and verified. EXAM: GEN: A&O x3, NAD SKIN:Appropriate postop appearance Incision intact Incision well healed RightKnee: ROM: Flexion/Extension:0 degrees to 115 degrees Pain with ROM:No Mal-alignment: No Effusion: None Tender to palpation of the medial joint line(s). Stability:Anterior/Posterior- Yes, stable and Varus/Valgus- Yes, stable Quad strength: normal HIP: range of motion no loss ROM NV: intact and Jeramy's negative IMAGING: Xrays: No x-rays today IMPRESSION/PLAN: 68 year old female s/p revision Right TKA At normal post-operative stage of recovery. Plan: 1. Continue range of motion/strengthening exercises and weightbearing as tolerated 2. Continue total knee precautions as discussed 3. Follow-up for repeat clinical evaluation Yanira Garcia MD Electronic Signature documented in this encounterF[facility]06-28-2024 NoteHNO ID: [id number] Author: KEMAL ALDRICH PT Service: ? Author Type: Physical Therapist Type: Progress Notes Filed: 01/23/2024 09:26 Note Text: Episode Visit Count: 7 Therapist That Will Accept/Oversee The Plan Of Care: Kemal Aldrich PT Start of Care Date: 12/18/23 Onset Date: 01/19/19 Plan of Care Certification Date: 12/18/23 Next Certification Due Date: 02/05/24 Patient Identified by Name and Date of : Yes REHABILITATION AND SPORTS THERAPY PHYSICAL THERAPY DISCONTINUANCE OF CARE PLAN OF CARE UPDATE: Assessment: Mariajose Marcelino is discontinued from Physical Therapy services due to goal achievement and maximal benefit. and Patient/Clinician mutual decision to discontinue current plan of care.. Patient was seen for 7 visits from Start of Care Date: 12/18/23 to 01/22/2024 and treatment included: Therapeutic exercise, Neuromuscular re-education, Manual therapy, Therapeutic activities, Self-fdc management, and Gait training. Vasopneumatic Goals for Episode of Care: created on 12/18/23 through 01/29/24 Updated 2023 [place] in home exercise program. Status- achieved Patient will decrease pain to 0/10 at rest and with functional activities to allow patient to improve ambulation. Status- achieved pain 0 -3/ 10 Patient will increase active ROM of R knee to 0-120 degrees to allow pt to to improve gait mechanics / gait pattern . Status: achieved for passive range of motion 115-120 deg Patient will demonstrate increase in B LE strength to 5/5 during manual muscle testing in order to improve function for prior functional tasks. Status : partially achieved- right quad 4/5, right hip abd/ glut 3+ to 4-/ 5. Patient has home exercise program to address continue strengthening Patient will Improve Timed Up and Go to <12 seconds to demonstrate decreased risk of falling. Status: achieved - now 10.9 s Normal gait. Status- achieved Reciprocal stair negotiation. Status- achieved Patient Goals: return to PLOF- now achieved SUBJECTIVE: Pt. reports back to baseline ADLs and function. Walking independent. Stairs are good. Driving 45 min. to 1 hour now . Pt. able to reciprocal stair and walk over gravel/ grass without issues. Able to lift/ carry grocery. Functional Limitations: nothing Pain: Pain Pain Level: 2 Pain Location: Knee - Right Description: Aching Worst Pain Level: 3 Post Treatment Pain Post Treatment Pain Level: 0 Post Treatment Pain Location: Knee - Right PROMIS Scales 01/18/2024 01/06/2024 12/15/2023 Higher is Better Phys Func - Score 45 (within normal limits) Phys Func - Percentile 31 Self-Eff Symptom - Score 69 (High) 69 (High) Self-Eff Symptom - Percentile 97 97 T-scores: mean of general population = 50. 5 points is clinically meaningfully difference Percentiles provide an indication of how the patient's score ranks in relation to the general population. Higher percentile rankings indicate better function/quality of life. 50th percentile is the average of the general population and indicates half of respondents had a worse score. OBJECTIVE MEASURES WITH LEVEL OF FUNCTION: Knee Observations R Knee Presents with: Swelling, Effusion, Warmth, Atrophy, Incision R Swelling: mild post surgical R Effusion: mild R Atrophy : mild quad/ hamstring/ gluts R Incision: well head, mild mid incision scar restriction R Knee Girth (cm): 41.5 cm L Knee Girth (cm): 40 cm LE AROM R Knee Extension: 0 Degrees R Knee Flexion: 115 Degrees L Knee Extension: 2 Degrees L Knee Flexion: 120 Degrees LE PROM R Knee Extension: 0 Degrees R Knee Flexion: 115 Degrees LE Strength R Hip Extension: 4/5 R Hip ABduction: 4/5 R Knee Extension (L3): 4+/5 R Knee Flexion: 4+/5 L Hip Extension: 4+/5 L Hip Flexion (L2): 5/5 L Hip ABduction: 4+/5 L Knee Extension (L3): 5/5 Functional Strength Functional Strength: Minisquat, Lifting Minisquat: 1/2 depth (knee pain 2/ 10) Lifting: able to lift / carry 10 lbs 100 feet and up / down 4-5 steps Gait Gait: Independent Gait Device: None Gait Observation: normal gait, no limping Stairs: Modified Independent Stairs: stair; 4 steps with step to pattern descending acarrying 10 lb KB Balance Static Standing Balance: Single Leg Stance Single Leg Stance: R LE 18 s on FIRM , EO Functional Performance Test Results Assistive Device: None 30 Second Chair Stand Test: 14 reps Timed Up and Go (sec): 10.9 sec 4 Stage Balance Test Single leg stance - right (sec): 18 sec TREATMENT: Therapeutic Exercise: 1: initiated sci-fit bike x 2 1/2 mins forward and 2 1/2 mins in retro to increase knee mobilty and while collecting subjective information. 2: Performed AROM measurement, Functional mobility assessment, gait assessment 9: REviewed SLR hip ER x 15 reps 14: added prone R knee flexion stretch with strap 2 x 30 s 15: added left sidely R hip abd hold 5-7 seconds x 5 reps Skilled Interventio (more content not included)...[facility]06-28-2024 History of Present illness Narrative* Kemal Aldrich PT - 01/22/2024 9:02 AM EDT Episode Visit Count: 7 Therapist That Will Accept/Oversee The Plan Of Care: Kemal Aldrich PT Start of Care Date: 12/18/23 Onset Date: 01/19/19 Plan of Care Certification Date: 12/18/23 Next Certification Due Date: 02/05/24 Patient Identified by Name and Date of : Yes REHABILITATION AND SPORTS THERAPY PHYSICAL THERAPY DISCONTINUANCE OF CARE PLAN OF CARE UPDATE: Assessment: Mariajose Marcelino is discontinued from Physical Therapy services due to goal achievement and maximal benefit. and Patient/Clinician mutual decision to discontinue current plan of care.. Patient was seen for 7 visits from Start of Care Date: 12/18/23 to 01/22/2024 and treatment included: Therapeutic exercise, Neuromuscular re-education, Manual therapy, Therapeutic activities, Self-care homemanagement, and Gait training. Vasopneumatic Goals for Episode of Care: created on 12/18/23 through 01/29/24 Updated 2023 [place] in home exercise program. Status- achieved Patient will decrease pain to 0/10 at rest and with functional activities to allow patient to improve ambulation. Status- achieved pain 0 -3/ 10 Patient will increase active ROM of R knee to 0-120 degrees to allow pt to to improve gait mechanics / gait pattern . Status: achieved for passive range of motion 115-120 deg Patient will demonstrate increase in B LE strength to 5/5 during manual muscle testing in order to improve function for prior functional tasks. Status : partially achieved- right quad 4/5, right hip abd/ glut 3+ to 4-/ 5. Patient has home exercise program to address continue strengthening Patient will Improve Timed Up and Go to <12 seconds to demonstrate decreased risk of falling. Status: achieved - now 10.9 s Normal gait. Status- achieved Reciprocal stair negotiation. Status- achieved Patient Goals: return to PLOF- now achieved SUBJECTIVE: Pt. reports back to baseline ADLs and function. Walking independent. Stairs are good. Driving 45 min. to 1 hour now . Pt. able to reciprocal stair and walk over gravel/ grass without issues. Able to lift/ carry grocery. Functional Limitations: nothing Pain: Pain Pain Level: 2 Pain Location: Knee - Right Description: Aching Worst Pain Level: 3 Post Treatment Pain Post Treatment Pain Level: 0 Post Treatment Pain Location: Knee - Right PROMIS Scales 01/18/2024 01/06/2024 12/15/2023 Higher is Better Phys Func - Score 45 (within normal limits) Phys Func - Percentile 31 Self-Eff Symptom - Score 69 (High) 69 (High) Self-Eff Symptom - Percentile 97 97 T-scores: mean of general population = 50. 5 points is clinically meaningfully difference Percentiles provide an indication of how the patient's score ranks in relation to the general population. Higher percentile rankings indicate better function/quality of life. 50th percentile is the average of the general population and indicates half of respondents had a worse score. OBJECTIVE MEASURES WITH LEVEL OF FUNCTION: Knee Observations R Knee Presents with: Swelling, Effusion, Warmth, Atrophy, Incision R Swelling: mild post surgical R Effusion: mild R Atrophy : mild quad/ hamstring/ gluts R Incision: well head, mild mid incision scar restriction R Knee Girth (cm): 41.5 cm L Knee Girth (cm): 40 cm LE AROM R Knee Extension: 0 Degrees R Knee Flexion: 115 Degrees L Knee Extension: 2 Degrees L Knee Flexion: 120 Degrees LE PROM R Knee Extension: 0 Degrees R Knee Flexion: 115 Degrees LE Strength R Hip Extension: 4/5 R Hip ABduction: 4/5 R Knee Extension (L3): 4+/5 R Knee Flexion: 4+/5 L Hip Extension: 4+/5 L Hip Flexion (L2): 5/5 L Hip ABduction: 4+/5 L Knee Extension (L3): 5/5 Functional Strength Functional Strength: Minisquat, Lifting Minisquat: 1/2 depth (knee pain 2/ 10) Lifting: able to lift / carry 10 lbs 100 feet and up / down 4-5 steps Gait Gait: Independent Gait Device: None Gait Observation: normal gait, no limping Stairs: Modified Independent Stairs: stair; 4 steps with step to pattern descending acarrying 10 lb KB Balance Static Standing Balance: Single Leg Stance Single Leg Stance: R LE 18 s on FIRM , EO Functional Performance Test Results Assistive Device: None 30 Second Chair Stand Test: 14 reps Timed Up and Go (sec): 10.9 sec 4 Stage Balance Test Single leg stance - right (sec): 18 sec TREATMENT: Therapeutic Exercise: 1: initiated sci-fit bike x 2 1/2 mins forward and 2 1/2 mins in retro to increase knee mobilty andwhile collecting subjective information. 2: Performed AROM measurement, Functional mobility assessment, gait assessment 9: REviewed SLR hip ER x 15 reps 14: added prone R knee flexion stretch with strap 2 x 30 s 15: added left sidely R hip abd hold 5-7 seconds x 5 reps Skilled Intervention: Patient was educated in proper exercise technique and purpose for exercises. Skilled judgment was used in selection of appropriate interventions. Educated patient on rationale for performing exercises in regards to including balance, increase ease of ADL, and ROM and function . Patient education as noted. Manual Therapy: 1: Performed PROM meausure, palpation, MMT, special tests, girth measurement for Progress report update. 2: patella mobs 4: proximal/ distal scar mobilization with gloves Skilled Intervention: Manual skills to improve joint mobility, ROM, and decrease pain. Utilized anatomy knowledge of the therapist, and assessment of patient's response to intervention. Gait Trainin: TUG 2: STair assessment - 1 flight reciprocal gait 1 rail and carry 10 lbs up /down 5 steps recip gait with 1 rail Skilled Intervention: Patient was provided independence during pre-gait/gait training to prevent falls and insure safety. Facilitated proper gait cycle with the use of verbal, visual, and tactile cues for correction of gait deviations identified in the objective section above. Gait belt utilized during session for safety. Home Exercise Program Assigned: 1: SLR with ER 2: prone R knee flexion strap assisted 3: stat bike for R knee PROM flexion stretch Billing Therapeutic Exercise Treatment Minutes: 20 Manual TherapyTreatment Minutes: 10 Gait Training Treatment Minutes: 10 Skilled Treatment Time Minutes (timed and untimed codes): 40 Total Session Time (minutes): 46 Session Start Time : 0900 Session Stop Time : 945 Kemal Aldrich PT documented [facility] this [facility]06-25-[facility]24 NoteHNO ID: [id number] Author: DRAKE PAIGE PTA Service: ? Author Type: Section Beamer Type: Progress Notes Filed: 01/19/2024 10:18 Note Text: Episode Visit Count: 6 Therapist That Will Accept/Oversee The Plan Of Care: Kemal Aldrich PT Start of Care Date: 12/18/23 Onset Date: 01/19/19 Plan of Care Certification Date: 12/18/23 Next Certification Due Date: 02/05/24 Patient Identified by Name and Date of : Yes REHABILITATION AND SPORTS THERAPY PHYSICAL THERAPY TREATMENT NOTE ASSESSMENT: Mariajose Marcelino tolerated the session with no issues. She demonstrated improvements in gait and increasing knee RANGE OF MOTION. Continue to work on knee strengthening and knee flexion. Progressing with increasing fluidity of gait. The patient will continue to benefit from ongoing skilled physical therapy to progress toward set goals. PLAN FOR NEXT VISIT: monitor emir lunges and sci-fit bike. Progress Strength and knee flexion SUBJECTIVE: Pt states that knee is doing well. States that she has MD appt. with surgeon next thursday. Pain: Pain Pain Level: 2 (states that symptoms are 1-2/10) Pain Location: Knee - Right Description: Aching Post Treatment Pain Post Treatment Pain Level: No Change OBJECTIVE MEASURES WITH LEVEL OF FUNCTION: TREATMENT: Therapeutic Exercise: 1: initiated sci-fit bike x 2 1/2 mins forward and 2 1/2 mins in retro to increase knee mobilty and while collecting subjective information. (pt able to attain full revolution forward and backward) 2: calf stretch on wedge x 4 reps holding for 15 sec each 3: step up/down x 10 reps/2sets on 6 step 4: forward lunges at 2:00, 3:00, 4:00 and 5:00 x 3 reps with UE support as needed 5: sit<>stand x 10 reps Skilled Intervention: Patient was educated in proper exercise technique and purpose for exercises. Skilled judgment was used in selection of appropriate interventions. Educated patient on rationale for performing exercises in regards to ROM and function . Patient education as noted. Manual Therapy: 1: STM to distal quad 2: patella mobs 3: IASTM to distal quad with pt in supine Skilled Intervention: Manual skills to improve joint mobility, ROM, and decrease pain. Utilized anatomy knowledge of the therapist, and assessment of patient's response to intervention. Billing Therapeutic Exercise Treatment Minutes: 25 Manual TherapyTreatment Minutes: 20 Skilled Treatment Time Minutes (timed and untimed codes): 45 Total Session Time (minutes): 45 Session Start Time : 929 Session Stop Time : [facility]5 [facility] of Present [facility] Narrative* [facility] - 01/19/2024 10:17 AM EDT Episode Visit Count: 6 Therapist That Will Accept/Oversee The Plan Of Care: Kemal Aldrich PT Start of Care Date: 12/18/23 Onset Date: 01/19/19 Plan of Care Certification Date: 12/18/23 Next Certification Due Date: 02/05/24 Patient Identified by Name and Date of : Yes REHABILITATION AND SPORTS THERAPY PHYSICAL THERAPY TREATMENT NOTE ASSESSMENT: Mariajose Marcelino tolerated the session with no issues. She demonstrated improvements in gait and increasing knee RANGE OF MOTION. Continue to work on knee strengthening and knee flexion. Progressing with increasing fluidity of gait. The patient will continue to benefit from ongoing skilledphysical therapy to progress toward set goals. PLAN FOR NEXT VISIT: monitor emir barbour and sci-fit bike. Progress Strength and knee flexion SUBJECTIVE: Pt states that knee is doing well. States that she has MD appt. with surgeon next thursday. Pain: Pain Pain Level: 2 (states that symptoms are 1-2/10) Pain Location: Knee - Right Description: Aching Post Treatment Pain Post Treatment Pain Level: No Change OBJECTIVE MEASURES WITH LEVEL OF FUNCTION: TREATMENT: Therapeutic Exercise: 1: initiated sci-fit bike x 2 1/2 mins forward and 2 1/2 mins in retro to increase knee mobilty andwhile collecting subjective information. (pt able to attain full revolution forward and backward) 2: calf stretch on wedge x 4 reps holding for 15 sec each 3: step up/down x 10 reps/2sets on 6 step 4: forward lunges at 2:00, 3:00, 4:00 and 5:00 x 3 reps with UE support as needed 5: sit<>stand x 10 reps Skilled Intervention: Patient was educated in proper exercise technique and purpose for exercises. Skilled judgment was used in selection of appropriate interventions. Educated patient on rationale for performing exercises in regards to ROM and function . Patient education as noted. Manual Therapy: 1: STM to distal quad 2: patella mobs 3: IASTM to distal quad with pt in supine Skilled Intervention: Manual skills to improve joint mobility, ROM, and decrease pain. Utilized anatomy knowledge of the therapist, and assessment of patient's response to intervention. Billing Therapeutic Exercise Treatment Minutes: 25 Manual TherapyTreatment Minutes: 20 Skilled Treatment Time Minutes (timed and untimed codes): 45 Total Session Time (minutes): 45 Session Start Time : 0930 Session Stop Time : 1015 Drake Paige PTA [facility]24 NoteHNO ID: [id number] Author: KEMAL ALDRICH PT Service: ? Author Type: Physical Therapist Type: Progress Notes Filed: 01/08/2024 12:44 Note Text: Episode Visit Count: 5 Therapist That Will Accept/Oversee The Plan Of Care: Kemal Aldrich PT Start of Care Date: 12/18/23 Onset Date: 01/19/19 Plan of Care Certification Date: 12/18/23 Next Certification Due Date: 02/05/24 Patient Identified by Name and Date of : Yes REHABILITATION AND SPORTS THERAPY PHYSICAL THERAPY TREATMENT NOTE ASSESSMENT: Mariajose Marcelino tolerated the session with fatigue in right quad, expected muscle soreness distal quad and proximal/ distal right anterior knee incision, and imbalance on lateral and forward . She demonstrated difficulty with lateral unstable surface stepping and lateral > forward stepping for 4-5 inch > 3 inch curb steps and improvements in engaging glut for eccentric stand to sit transfers. The patient will continue to benefit from ongoing skilled physical therapy to progress toward set goals. PLAN FOR NEXT VISIT: Monitor and continue gentle scar mobilization , R knee flexion stretches, continue with quad strengthening- CKC > OKC , trial forward lunges SUBJECTIVE: Pt. has intermittent medial left knee pain - brief sharp pains- that come and goes. Pain: Pain Pain Level: 2 Pain Location: Knee - Right Description: Sore Post Treatment Pain Post Treatment Pain Level: No Change Post Treatment Symptoms: fatigue OBJECTIVE MEASURES WITH LEVEL OF FUNCTION: Knee Observations R Knee Girth (cm): 41.5 cm L Knee Girth (cm): 40.5 cm LE AROM R Knee Extension: 0 Degrees R Knee Flexion: 115 Degrees LE PROM R Knee Extension: 0 Degrees R Knee Flexion: 115 Degrees TREATMENT: Therapeutic Exercise: 1: nu-step x 6 mins at level 3.0 to increase knee mobility for R knee flexion PROM and while collecting subjective information 2: calf stretch on wedge x 4 reps holding for 15 sec each 3: sit<>stand x 10 reps 4: hasmtring stretch on step x 4 reps holding for 15 sec each 8: added floor ladder marching ~12' x 2 and retro walking at 12 feet x 4 reps 12: lateral 6 multiple cone and Airex step over [address] x [address] Skilled Intervention: Patient was educated in proper exercise technique and purpose for exercises. Skilled judgment was used in selection of appropriate interventions. Correct performance of therapeutic exercises was facilitated with verbal, visual, and tactile cuing. Patient education as noted. Manual Therapy: 1: STM distal quads-tender medial > lateral 2: CFM med/Lat hamstrings 3: Patellar mobs Superior > inferior 4: proximal/ distal scar mobilization with gloves Skilled Intervention: Manual skills to improve joint mobility, ROM, and decrease pain. Utilized anatomy knowledge of the therapist, and assessment of patient's response to intervention. Gait Trainin: curb step training- 3 and 5-6 inch height 4 reps each Skilled Intervention: Patient was provided contact guard assistance during pre-gait/gait training to prevent falls and insure safety. Facilitated proper gait cycle with the use of verbal and visual cues for correction of gait deviations identified in the objective section above. Billing Therapeutic Exercise Treatment Minutes: 20 Manual TherapyTreatment Minutes: 15 Gait Training Treatment Minutes: 5 Skilled Treatment Time Minutes (timed and untimed codes): 40 Total Session Time (minutes): 45 Session Start Time : 0900 Session Stop Time : 45 [facility] of Present illness Narrative * Valdemar Kemal A, PT - 01/08/2024 8:59 AM EDT Episode Visit Count: 5 Therapist That Will Accept/Oversee The Plan Of Care: Kemal Aldrich PT Start of Care Date: 12/18/23 Onset Date: 01/19/19 Plan of Care Certification Date: 12/18/23 Next Certification Due Date: 02/05/24 Patient Identified by Name and Date of : Yes REHABILITATION AND SPORTS THERAPY PHYSICAL THERAPY TREATMENT NOTE ASSESSMENT: Mariajose Marcelino tolerated the session with fatigue in right quad, expected muscle soreness distal quad and proximal/ distal right anterior knee incision, and imbalance on lateral and forward . She demonstrated difficulty with lateral unstable surface stepping and lateral > forward stepping for 4-5 inch > 3 inch curb steps and improvements in engaging glut for eccentric stand to sit transfers. The patient will continue to benefit from ongoing skilled physical therapy to progress toward set goals. PLAN FOR NEXT VISIT: Monitor and continue gentle scar mobilization , R knee flexion stretches, continue with quad strengthening- CKC > OKC , trial forward lunges SUBJECTIVE: Pt. has intermittent medial left knee pain - brief sharp pains- that come and goes. Pain: Pain Pain Level: 2 Pain Location: Knee - Right Description: Sore Post Treatment Pain Post Treatment Pain Level: No Change Post Treatment Symptoms: fatigue OBJECTIVE MEASURES WITH LEVEL OF FUNCTION: Knee Observations R Knee Girth (cm): 41.5 cm L Knee Girth (cm): 40.5 cm LE AROM R Knee Extension: 0 Degrees R Knee Flexion: 115 Degrees LE PROM R Knee Extension: 0 Degrees R Knee Flexion: 115 Degrees TREATMENT: Therapeutic Exercise: 1: nu-step x 6 mins at level 3.0 to increase knee mobility for R knee flexion PROM and while collecting subjective information 2: calf stretch on wedge x 4 reps holding for 15 sec each 3: sit<>stand x 10 reps 4: hasmtring stretch on step x 4 reps holding for 15 sec each 8: added floor ladder marching ~12' x 2 and retro walking at 12 feet x 4 reps 12: lateral 6 multiple cone and Airex step over [address] Skilled Intervention: Patient was educated in proper exercise technique and purpose for exercises. Skilled judgment was used in selection of appropriate interventions. Correct performance of therapeutic exercises was facilitated with verbal, visual, and tactile cuing. Patient education as noted. Manual Therapy: 1: STM distal quads-tender medial > lateral 2: CFM med/Lat hamstrings 3: Patellar mobs Superior > inferior 4: proximal/ distal scar mobilization with gloves Skilled Intervention: Manual skills to improve joint mobility, ROM, and decrease pain. Utilized anatomy knowledge of the therapist, and assessment of patient's response to intervention. Gait Trainin: curb step training- 3 and 5-6 inch height 4 reps each Skilled Intervention: Patient was provided contact guard assistance during pre- gait/gait training to prevent falls and insure safety. Facilitated proper gait cycle with the use of verbal and visual cues for correction of gait deviations identified in the objective section above. Billing Therapeutic Exercise Treatment Minutes: 20 Manual TherapyTreatment Minutes: 15 Gait Training Treatment Minutes: 5 Skilled Treatment Time Minutes (timed and untimed codes): 40 Total Session Time (minutes): 45 Session Start Time : 0900 Session Stop Time : 944 Kemal Aldrich PT documented [facility]06-11-2024 NoteHNO ID: [id number] Author: DRAKE PAIGE PTA Service: ? Author Type: Section Beamer Type: Progress Notes Filed: 01/05/2024 11:52 Note Text: Episode Visit Count: 4 Therapist That Will Accept/Oversee The Plan Of Care: Kemal Aldrich PT Start of Care Date: 12/18/23 Onset Date: 01/19/19 Plan of Care Certification Date: 12/18/23 Next Certification Due Date: 02/05/24 Patient Identified by Name and Date of : Yes REHABILITATION AND SPORTS THERAPY PHYSICAL THERAPY TREATMENT NOTE ASSESSMENT: Mariajose Marcelino tolerated the session with no issues. She demonstrated challenge with performing dips (step downs) on 6 step. Patient notes some muscle stretch with retro walking at rail. Patient progressing nicely with single leg stance on airex. Continue to note tightness in quad. Incision is healing and scabbing. Noted mild warm. The patient will continue to benefit from ongoing skilled physical therapy to progress toward set goals. PLAN FOR NEXT VISIT: continue with quad strengthening; forward lunges SUBJECTIVE: Pt reports that knee is doing ok. Did some exercises this morning and iced. A little twingy today but not bad. Pain: Pain Pain Level: 2 Pain Location: Knee - Right Description: Aching, Tightness Post Treatment Pain Post Treatment Pain Level: No Change OBJECTIVE MEASURES WITH LEVEL OF FUNCTION: TREATMENT: Therapeutic Exercise: 1: nu-step x 5 mins at level 3.0 to increase knee mobility and while collecting subjective information 2: calf stretch on wedge x 4 reps holding for 15 sec each 3: sit<>stand x 10 reps (v/c to slow down and control movement) 4: hasmtring stretch on step x 4 reps holding for 15 sec each 5: step up/down on 6 step x 10 reps/2sets 6: step down (Dip) on 6 step x 10 reps 7: SLS on airex x 4 reps holding for 20 sec each 8: high marching at rail ~12' x 2 with retro walking at end 9: NK extension bar only, flexion 2.5#, 2 x 10 each Skilled Intervention: Patient was educated in proper exercise technique and purpose for exercises. Reviewed and educated patient on additions/changes for home exercise program sit<>Stand Patient education as noted. Manual Therapy: 1: STM distal quads-tender medial > lateral 2: CFM med/Lat hamstrings 3: Patellar mobs Superior > inferior Skilled Intervention: Manual skills to improve joint mobility, ROM, and decrease pain. Utilized anatomy knowledge of the therapist, and assessment of patient's response to intervention. Billing Therapeutic Exercise Treatment Minutes: 30 Manual TherapyTreatment Minutes: 15 Skilled Treatment Time Minutes (timed and untimed codes): 45 Total Session Time (minutes): 45 Session Start Time : 30 Session Stop Time : 1015 [facility] of Present illness Narrative* [facility]ige [facility] - 01/05/2024 11:46 AM EDT Episode Visit Count: 4 Therapist That Will Accept/Oversee The Plan Of Care: Kemal Aldrich PT Start of Care Date: 12/18/23 Onset Date: 01/19/19 Plan of Care Certification Date: 12/18/23 Next Certification Due Date: 02/05/24 Patient Identified by Name and Date of : Yes REHABILITATION AND SPORTS THERAPY PHYSICAL THERAPY TREATMENT NOTE ASSESSMENT: Mariajose Marcelino tolerated the session with no issues. She demonstrated challenge with performing dips (step downs) on 6 step. Patient notes some muscle stretch with retro walking at rail. Patient progressing nicely with single leg stance on airex. Continue to note tightness in quad. Incision is healing and scabbing. Noted mild warm. The patient will continue to benefit from ongoing skilled physical therapy to progress toward set goals. PLAN FOR NEXT VISIT: continue with quad strengthening; forward lunges SUBJECTIVE: Pt reports that knee is doing ok. Did some exercises this morning and iced. A little twingy today but not bad. Pain: Pain Pain Level: 2 Pain Location: Knee - Right Description: Aching, Tightness Post Treatment Pain Post Treatment Pain Level: No Change OBJECTIVE MEASURES WITH LEVEL OF FUNCTION: TREATMENT: Therapeutic Exercise: 1: nu-step x 5 mins at level 3.0 to increase knee mobility and while collecting subjective information 2: calf stretch on wedge x 4 reps holding for 15 sec each 3: sit<>stand x 10 reps (v/c to slow down and control movement) 4: hasmtring stretch on step x 4 reps holding for 15 sec each 5: step up/down on 6 step x 10 reps/2sets 6: step down (Dip) on 6 step x 10 reps 7: SLS on airex x 4 reps holding for 20 sec each 8: high marching at rail ~12' x 2 with retro walking at end 9: NK extension bar only, flexion 2.5#, 2 x 10 each Skilled Intervention: Patient was educated in proper exercise technique and purpose for exercises. Reviewed and educated patient on additions/changes for home exercise program sit<>Stand Patient education as noted. Manual Therapy: 1: STM distal quads-tender medial > lateral 2: CFM med/Lat hamstrings 3: Patellar mobs Superior > inferior Skilled Intervention: Manual skills to improve joint mobility, ROM, and decrease pain. Utilized anatomy knowledge of the therapist, and assessment of patient's response to intervention. Billing Therapeutic Exercise Treatment Minutes: 30 Manual TherapyTreatment Minutes: 15 Skilled Treatment Time Minutes (timed and untimed codes): 45 Total Session Time (minutes): 45 Session Start Time : 929 Session Stop Time : 1015 Drake Paige PTA documented in this encounterF[facility]06-07-2024 NoteHNO ID: [id number] Author: MADELAINE DICKSON PTA Service: ? Author Type: Section Beamer Type: Progress Notes Filed: 01/01/2024 10:52 Note Text: Episode Visit Count: 3 Therapist That Will Accept/Oversee The Plan Of Care: Kemal Aldrich PT Start of Care Date: 12/18/23 Onset Date: 01/19/19 Plan of Care Certification Date: 12/18/23 Next Certification Due Date: 02/05/24 Patient Identified by Name and Date of : Yes REHABILITATION AND SPORTS THERAPY PHYSICAL THERAPY TREATMENT NOTE ASSESSMENT: Mariajose Marcelino tolerated the session with tenderness at medial distal quads during STM. She demonstrated difficulty with NK extension strength but able to start at minimum level, and improvements in progressions of functional activity and additions for self stretching. The patient will continue to benefit from ongoing skilled physical therapy to progress toward set goals. PLAN FOR NEXT VISIT: progress quad/glute strengthening and knee flexion AAROM/AROM SUBJECTIVE: I did ok after last session. I got my driving privileges back--that is nice. . Pain: Pain Pain Level: 1 Pain Location: Knee - Right Description: Aching, Tightness Post Treatment Pain Post Treatment Pain Level: No Change OBJECTIVE MEASURES WITH LEVEL OF FUNCTION: Stair stretch knee flexion to 118 degrees. TREATMENT: Therapeutic Exercise: 1: sit<>stand x 10 reps from chair without UE support--cuing for knees over toes 2: NK(after manual) extension bar only, flexion 2.5#, 2 x 10 each 4: Taught calf stretch for home ie runners stretch or against a stationary wall/table leg 5: standing on airex SLS x 10 reps 5 sec alternating LEs, finger tips prn for balance 6: calf stretch on wedge x 2 resp holding for 30 sec each 7: soleus stretch on wedge x 2 reps holding for 30 sec each 8: step up/down x 10 reps/2sets on 6 step 9: knee flexion stretch on step x 4 reps holding for 20 sec each--discussed use of ottoman at home w/ safe set up 10: step down(dips) x 10 reps on 4 step 12: lateral 6 multiple cone and Airex step over [address] 13: functional squats x 10 reps Skilled Intervention: Patient was educated in proper exercise technique and purpose for exercises. Reviewed and educated patient on additions/changes for home exercise program as above (*). Skilled judgment was used in selection of appropriate interventions. Correct performance of therapeutic exercises was facilitated with verbal and visual cuing. Educated patient on rationale for performing exercises in regards to decreasing fatigue , improving fitness, including balance, and ROM and function . Manual Therapy: 1: STM distal quads-tender medial > lateral 2: CFM med/Lat hamstrings 3: Patellar mobs Superior > inferior Skilled Intervention: Manual skills to improve joint mobility, ROM, and decrease pain. Utilized anatomy knowledge of the therapist, and assessment of patient's response to intervention. Billing Therapeutic Exercise Treatment Minutes: 30 Manual TherapyTreatment Minutes: 15 Skilled Treatment Time Minutes (timed and untimed codes): 45 Total Session Time (minutes): 45 Session Start Time : 929 Session Stop Time : 1015 [facility] of Present illness Narrative* Madelaine Dickson[facility] - 01/01/[facility]24 10:47 AM EDT Episode Visit Count: 3 Therapist That Will Accept/Oversee The Plan Of Care: Kemal Aldrich PT Start of Care Date: 12/18/23 Onset Date: 01/19/19 Plan of Care Certification Date: 12/18/23 Next Certification Due Date: 02/05/24 Patient Identified by Name and Date of : Yes REHABILITATION AND SPORTS THERAPY PHYSICAL THERAPY TREATMENT NOTE ASSESSMENT: Mariajose Marcelino tolerated the session with tenderness at medial distal quads during STM. She demonstrated difficulty with NK extension strength but able to start at minimum level, and improvements in progressions of functional activity and additions for self stretching. The patient will continue to benefit from ongoing skilled physical therapy to progress toward set goals. PLAN FOR NEXT VISIT: progress quad/glute strengthening and knee flexion AAROM/AROM SUBJECTIVE: I did ok after last session. I got my driving privileges back--that is nice. . Pain: Pain Pain Level: 1 Pain Location: Knee - Right Description: Aching, Tightness Post Treatment Pain Post Treatment Pain Level: No Change OBJECTIVE MEASURES WITH LEVEL OF FUNCTION: Stair stretch knee flexion to 118 degrees. TREATMENT: Therapeutic Exercise: 1: sit<>stand x 10 reps from chair without UE support--cuing for knees over toes 2: NK(after manual) extension bar only, flexion 2.5#, 2 x 10 each 4: Taught calf stretch for home ie runners stretch or against a stationary wall/table leg 5: standing on airex SLS x 10 reps 5 sec alternating LEs, finger tips prn for balance 6: calf stretch on wedge x 2 resp holding for 30 sec each 7: soleus stretch on wedge x 2 reps holding for 30 sec each 8: step up/down x 10 reps/2sets on 6 step 9: knee flexion stretch on step x 4 reps holding for 20 sec each--discussed use of ottoman at home w/ safe set up 10: step down(dips) x 10 reps on 4 step 12: lateral 6 multiple cone and Airex step over [address] 13: functional squats x 10 reps Skilled Intervention: Patient was educated in proper exercise technique and purpose for exercises. Reviewed and educated patient on additions/changes for home exercise program as above (*). Skilled judgment was used in selection of appropriate interventions. Correct performance of therapeutic exercises was facilitated with verbal and visual cuing. Educated patient on rationale for performing exercises in regards to decreasing fatigue , improvingfitness, including balance, and ROM and function . Manual Therapy: 1: STM distal quads-tender medial > lateral 2: CFM med/Lat hamstrings 3: Patellar mobs Superior > inferior Skilled Intervention: Manual skills to improve joint mobility, ROM, and decrease pain. Utilized anatomy knowledge of the therapist, and assessment of patient's response to intervention. Billing Therapeutic Exercise Treatment Minutes: 30 Manual TherapyTreatment Minutes: 15 Skilled Treatment Time Minutes (timed and untimed codes): 45 Total Session Time (minutes): 45 Session Start Time : 929 Session Stop Time : 101 Madelaine Dickson PTA documented [facility] encounterF[facility]06-04-2024 NoteHNO ID: [id number] Author: DRAKE PAIGE PTA Service: ? Author Type: Section Beamer Type: Progress Notes Filed: 12/29/2023 11:10 Note Text: Episode Visit Count: 2 Therapist That Will Accept/Oversee The Plan Of Care: Kemal Aldrich PT Start of Care Date: 12/18/23 Onset Date: 01/19/19 Plan of Care Certification Date: 12/18/23 Next Certification Due Date: 02/05/24 Patient Identified by Name and Date of : Yes REHABILITATION AND SPORTS THERAPY PHYSICAL THERAPY TREATMENT NOTE ASSESSMENT: Mariajose Marcelino tolerated the session with decreased endurance and fatigue. She demonstrated improvements in standing and mobility without assisted device. Continue to note scabbing at incision. Patient with some challenge with performing steps. Noted more effort. Patient deferred CP at end of session. Reports that she is going right home and will ice once at home. The patient will continue to benefit from ongoing skilled physical therapy to progress toward set goals. PLAN FOR NEXT VISIT: progress balance and LE strengthening SUBJECTIVE: Pt reports that she had a restless night last night. Report that she was up this morning and performed exercises and iced prior to coming to therapy. Pain: Pain Pain Level: 2 Pain Location: Knee - Right Description: Tightness, Aching Post Treatment Pain Post Treatment Pain Level: No Change Post Treatment Symptoms: fatigue OBJECTIVE MEASURES WITH LEVEL OF FUNCTION: TREATMENT: Therapeutic Exercise: 1: sit<>stand x 10 reps from chair without UE support 2: hamstring curls x 10 reps/2sets with red t-band 3: standing on airex for marching x 10 reps/2sets 4: standing on airex heel raises x 15 reps 5: standing on airex x 12 reps/2sets each side 6: calf stretch on wedge x 4 resp holding for 15 sec each 7: soleus stretch on wedge x 4 reps holding for 15 sec each 8: step up/down x 10 reps/2sets on 6 step 9: knee flexion stretch on step x 4 reps holding for 15 sec each 10: step down(dips) x 10 reps on 4 step 11: single 6 cone step over x 10 reps 12: lateral 6 single cone step over x 10 reps 13: functional squats x 10 reps Skilled Intervention: Patient was educated in proper exercise technique and purpose for exercises. Skilled judgment was used in selection of appropriate interventions. Correct performance of therapeutic exercises was facilitated with verbal and visual cuing. Educated patient on rationale for performing exercises in regards to including balance and ROM and function . Patient education as noted. Billing Therapeutic Exercise Treatment Minutes: 44 Skilled Treatment Time Minutes (timed and untimed codes): 44 Total Session Time (minutes): 44 Session Start Time : 925 Session Stop Time : 1009 [facility] History of Present illness Narrative* Drake Paige Y, [employer] - 12/29/2023 10:07 AM EDT Episode Visit Count: 2 Therapist That Will Accept/Oversee The Plan Of Care: Kemal Aldrich PT Start of Care Date: 12/18/23 Onset Date: 01/19/19 Plan of Care Certification Date: 12/18/23 Next Certification Due Date: 02/05/24 Patient Identified by Name and Date of : Yes REHABILITATION AND SPORTS THERAPY PHYSICAL THERAPY TREATMENT NOTE ASSESSMENT: Mariajose Marcelino tolerated the session with decreased endurance and fatigue. She demonstrated improvements in standing and mobility without assisted device. Continue to note scabbing at incision. Patient with some challenge with performing steps. Noted more effort. Patient deferred CP at end of session. Reports that she is going right home and will ice once at home. The patient will continue to benefit from ongoing skilled physical therapy to progress toward set goals. PLAN FOR NEXT VISIT: progress balance and LE strengthening SUBJECTIVE: Pt reports that she had a restless night last night. Report that she was up this morning and performed exercises and iced prior to coming to therapy. Pain: Pain Pain Level: 2 Pain Location: Knee - Right Description: Tightness, Aching Post Treatment Pain Post Treatment Pain Level: No Change Post Treatment Symptoms: fatigue OBJECTIVE MEASURES WITH LEVEL OF FUNCTION: TREATMENT: Therapeutic Exercise: 1: sit<>stand x 10 reps from chair without UE support 2: hamstring curls x 10 reps/2sets with red t-band 3: standing on airex for marching x 10 reps/2sets 4: standing on airex heel raises x 15 reps 5: standing on airex x 12 reps/2sets each side 6: calf stretch on wedge x 4 resp holding for 15 sec each 7: soleus stretch on wedge x 4 reps holding for 15 sec each 8: step up/down x 10 reps/2sets on 6 step 9: knee flexion stretch on step x 4 reps holding for 15 sec each 10: step down(dips) x 10 reps on 4 step 11: single 6 cone step over x 10 reps 12: lateral 6 single cone step over x 10 reps 13: functional squats x 10 reps Skilled Intervention: Patient was educated in proper exercise technique and purpose for exercises. Skilled judgment was used in selection of appropriate interventions. Correct performance of therapeutic exercises was facilitated with verbal and visual cuing. Educated patient on rationale for performing exercises in regards to including balance and ROM and function . Patient education as noted. Billing Therapeutic Exercise Treatment Minutes: 44 Skilled Treatment Time Minutes (timed and untimed codes): 44 Total Session Time (minutes): 44 Session Start Time : 925 Session Stop Time : 1009 Drake Paige PTA documented [facility]05-24-[facility]24 History of Present illness Narrative* Royce Peterson PA-C - 12/18/2023 1:08 PM EDT Post-op Office Visit Mariajose Marcelino 68 year old December 18, 2023 1:17 PM Surgery Date: 12/03/2023 History: Mariajose Marcelino is now 2 weeks out from right total knee arthroplasty revision. Post-operative coursehas been without complication. No readmissions. The patient was discharged from [facility] to home with home health care on 12/04/2023. Subjective: Patient reports 4/10 pain. Overall is doing well. Using cane ambulatory aid. She is not taking any opioid pain medication. Patients rates her condition as improving. Reports compliance with DVT ppx. Participating in outpatient PT. Objective: Right knee: Ambulates with cane Incision well-approximated, no drainage, well-healing. Suture tails trimmed today. Knee ROM 0 - 90 degrees Distally DP/PT palpable Distally SILT S/S/SP/DP/T intact at baseline Distally DF/PF motor intact at baseline Negative jeramy/calf tenderness Xrays: Well-positioned total knee replacement in appropriate alignment with no evidence of loosening Assessment and Plan: 68 year old female 2 weeks status post right total knee arthroplasty revision - continue ice, rest, and use of non-narcotic analgesia as needed - reviewed antibiotic prophylactic protocols - discussed home exercises and therapy - continue ASA DVT prophylaxis for 4 weeks total - WBAT on operative extremity - handicap placard Rx issued - discussed driving requirement: 4 weeks post-op, off narcotic pain medication, adequate brake time - follow up in 4 weeks for repeat clinical evaluation with Dr. Garcia Normal post-operative course discussed with patient. Patient reassured and supported. All questions answered. Jason Peterson PA-C Orthopaedic Surgery documented in this encounterFlower Hospital05-24-2024 History of Present illness Narrative* Lino Redding Tech - 12/18/2023 12:40 PM EDT Radiology Service Progress Note PATIENT NAME: Mariajose Marcelino DATE OF SERVICE: December 18, 2023 TIME: 12:41 PM PATIENT IDENTITY VERIFICATION COMPLETED USING TWO (2) IDENTIFIERS: Name and Date of confirmedby patient verbally. FALL SCREENING: Has the patient had 2 falls in the last year or 1 fall with injury or currently using an Ambulatory Assistive Device (Walker, Cane, Wheelchair, Crutches, etc.)? No PATIENT GENDER DATA: Female. status: : No status: NO. 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 Bearing PERIPHERAL IV DATA: Not applicable SIGNED BY: Rashad Pino December 18, 2023 12:41 PM documented in this encounterFlower Hospital05-24-2024 NoteHNO ID: [id number] Author: LINO REDDING Tech Service: ? Author Type: [place] Laborer Type: Progress Notes Filed: 12/18/2023 12:41 Note Text: Radiology Service Progress Note PATIENT NAME: Mariajose Marcelino DATE OF SERVICE: December 18, 2023 TIME: 12:41 PM PATIENT IDENTITY VERIFICATION COMPLETED USING TWO (2) IDENTIFIERS: Name and Date of confirmed by patient verbally. FALL SCREENING: Has the patient had 2 falls in the last year or 1 fall with injury or currently using an Ambulatory Assistive Device (Walker, Cane, Wheelchair, Crutches, etc.)? No PATIENT GENDER DATA: Female. status: : No status: NO. 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 Bearing PERIPHERAL IV DATA: Not applicable SIGNED BY: Rashad Pino December 18, 2023 12:41 [id number] NoteHNO ID: [id number] Author: MARTITA MASCORRO PT Service: ? Author Type: Physical Therapist Type: Progress Notes Filed: 12/18/2023 09:34 Note Text: Episode Visit Count: 1 Therapist That Will Accept/Oversee The Plan Of Care: Laureen Taylor, PT, DPT Start of Care Date: 12/18/23 Onset Date: 01/19/19 Plan of Care Certification Date: 12/18/23 Next Certification Due Date: 02/05/24 Patient Identified by Name and Date of : Yes REHABILITATION AND SPORTS THERAPY PHYSICAL THERAPY EVALUATION PLAN OF CARE: Assessment: Mariajose Marcelino presents with diagnosis of s/p R TKA revision on 12/03/2023 that interferes with walking in the community, stair negotiation, recreational activities, sleeping . She presents with impairments in gait, independence in exercise, overall function, range of motion, strength, and symptom management. PROMIS? (Patient-Reported Outcomes Measurement Information System) scores were reviewed and identified as a rehabilitation concern. Prognosis for therapy is Good due to: current objective clinical presentation . She will benefit from skilled therapy services to meet the goals established for this plan of care as noted below. Goals for Episode of Care: created on 12/18/23 through 01/29/24 [place] in home exercise program. Patient will decrease pain to 0/10 at rest and with functional activities to allow patient to improve ambulation. Patient will increase active ROM of R knee to 0-120 degrees to allow pt to to improve gait mechanics / gait pattern . Patient will demonstrate increase in B LE strength to 5/5 during manual muscle testing in order to improve function for prior functional tasks. Patient will Improve Timed Up and Go to <12 seconds to demonstrate decreased risk of falling. Normal gait. Reciprocal stair negotiation. Patient Goals: return to PLOF Planned Interventions, Frequency, and Duration: Current Frequency: 3x/week Duration: 6 weeks Total Number of Visits Planned: 18 Planned Treatment Interventions: Therapeutic exercise (45723), Manual therapy (33688), Therapeutic activities (86747), Self-fdc management (77493), Gait Training (44899), Patient/Family/Caregiver Education, Body Mechanics Training, Neuromuscular re-education (52491) (hot and cold modalities prn) PLAN FOR NEXT VISIT: Review HEP; continue to progress quad/glute strengthening and knee flexion AAROM/AROM Patient demonstrates good understanding of plan of care and treatment. The above goals and plan of care were discussed and agreed upon by patient/family. SUBJECTIVE: Pt reports she had R TKA on 12/03/2023. She graduated home therapy on 12/17/2023. She ambulates with cane in community and without AD in home. Pt reports decreased swelling and no signs of infection she has noticed. She does perform home exercises from PT and she ices every day. Patient Goals: return to PLOF Functional Limitations: walking in the community, stair negotiation, recreational activities, sleeping Prior Level of Function: Independent without limitations Relevant History Past Relevant Medical Conditions: Thyroid Disease, Asthma Past Relevant Surgical Conditions: (R TKA 01/19/2019; Revision 05/16/2022) Right or Left Handed: Right Employment: Retired Home Environment Patient Lives With: Self/Alone Assistance Available: PRN (4 daughters that can assist) Equipment Owned: Cane, Walker- Wheeled Intake Information: Prescription present Previous Treatment: Physical Therapy , Surgery , Ice Falls Interview: No positive findings with falls interview Pain: Pain Pain Level: 0 Pain Location: Knee - Right Detailed Pain Score: Yes Worst Pain Level: 5 Post Treatment Pain Post Treatment Pain Level: 0 PROMIS Scales 12/15/2023 12/11/2023 08/31/2023 Higher is Better Phys Func - Score 34 (moderate dysfunction) 38 (moderate dysfunction) Phys Func - Percentile 5 12 Self-Eff Symptom - Score 69 (High) Self-Eff Symptom - Percentile 97 T-scores: mean of general population = 50. 5 points is clinically meaningfully difference Percentiles provide an indication of how the patient's score ranks in relation to the general population. Higher percentile rankings indicate better function/quality of life. 50th percentile is the average of the general population and indicates half of respondents had a worse score. OBJECTIVE MEASURES WITH LEVEL OF FUNCTION: Knee Observations R Knee Girth (cm): 44 cm L Knee Girth (cm): 40.7 cm LE AROM R Knee Extension: 0 Degrees R Knee Flexion: 88 Degrees L Knee Extension: 2 Degrees L Knee Flexion: 120 Degrees LE Strength R Hip Extension: 4/5 R Hip Flexion (L2): 4-/5 R Hip ABduction: 4/5 R Hip ADduction: 4+/5 R Knee Extension (L3): 4+/5 R Knee Flexion: 4+/5 R Ankle Dorsiflexion (L4): 5/5 R Ankle Plantar Flexion: 5/5 L Hip Extension: 4+/5 L Hip Flexion (L2): 5/5 L Hip ABduction: 5/5 L Hip ADduction: 5/5 L Knee Extension (L (more content not included)...[facility]05-24-2024 History of Present illness Narrative* Martita Mascorro, PT - 12/18/2023 9:08 AM EDT Images from the original note were not included. Episode Visit Count: 1 Therapist That Will Accept/Oversee The Plan Of Care: Laureen Taylor PT, DPT Start of Care Date: 12/18/23 Onset Date: 01/19/19 Plan of Care Certification Date: 12/18/23 Next Certification Due Date: 02/05/24 Patient Identified by Name and Date of : Yes REHABILITATION AND SPORTS THERAPY PHYSICAL THERAPY EVALUATION PLAN OF CARE: Assessment: Mariajose Marcelino presents with diagnosis of s/p R TKA revision on 12/03/2023 that interferes with walking in the community, stair negotiation, recreational activities, sleeping . She presents with impairments in gait, independence in exercise, overall function, range of motion, strength, and symptom management. PROMIS (Patient-Reported Outcomes Measurement Information System) scores werereviewed and identified as a rehabilitation concern. Prognosis for therapy is Good due to: current objective clinical presentation . She will benefit from skilled therapy services to meet the goals established for this plan of care as noted below. Goals for Episode of Care: created on 12/18/23 through 01/29/24 [place] in home exercise program. Patient will decrease pain to 0/10 at rest and with functional activities to allow patient to improve ambulation. Patient will increase active ROM of R knee to 0-120 degrees to allow pt to to improve gait mechanics / gait pattern . Patient will demonstrate increase in B LE strength to 5/5 during manual muscle testing in order to improve function for prior functional tasks. Patient will Improve Timed Up and Go to <12 seconds to demonstrate decreased risk of falling. Normal gait. Reciprocal stair negotiation. Patient Goals: return to PLOF Planned Interventions, Frequency, and Duration: Current Frequency: 3x/week Duration: 6 weeks Total Number of Visits Planned: 18 Planned Treatment Interventions: Therapeutic exercise (48068), Manual therapy (97681), Therapeutic activities (06872), Self-fdc management (55839), Gait Training (72758), Patient/Family/Caregiver Education, Body Mechanics Training, Neuromuscular re-education (43949) (hot and cold modalities prn) PLAN FOR NEXT VISIT: Review HEP; continue to progress quad/glute strengthening and knee flexion AAROM/AROM Patient demonstrates good understanding of plan of care and treatment. The above goals and plan of care were discussed and agreed upon by patient/family. SUBJECTIVE: Pt reports she had R TKA on 12/03/2023. She graduated home therapy on 12/17/2023. She ambulates with cane in community and without AD in home. Pt reports decreased swelling and no signs of infection she has noticed. She does perform home exercises from PT and she ices every day. Patient Goals: return to PLOF Functional Limitations: walking in the community, stair negotiation, recreational activities, sleeping Prior Level of Function: Independent without limitations Relevant History Past Relevant Medical Conditions: Thyroid Disease, Asthma Past Relevant Surgical Conditions: (R TKA 01/19/2019; Revision 05/16/2022) Right or Left Handed: Right Employment: Retired Home Environment Patient Lives With: Self/Alone Assistance Available: PRN (4 daughters that can assist) Equipment Owned: Cane, Walker- Wheeled Intake Information: Prescription present Previous Treatment: Physical Therapy , Surgery , Ice Falls Interview: No positive findings with falls interview Pain: Pain Pain Level: 0 Pain Location: Knee - Right Detailed Pain Score: Yes Worst Pain Level: 5 Post Treatment Pain Post Treatment Pain Level: 0 PROMIS Scales 12/15/2023 12/11/2023 08/31/2023 Higher is Better Phys Func - Score 34 (moderate dysfunction) 38 (moderate dysfunction) Phys Func - Percentile 5 12 Self-Eff Symptom - Score 69 (High) Self-Eff Symptom - Percentile 97 T-scores: mean of general population = 50. 5 points is clinically meaningfully difference Percentiles provide an indication of how the patient's score ranks in relation to the general population. Higher percentile rankings indicate better function/quality of life. 50th percentile is the average of the general population and indicates half of respondents had a worse score. OBJECTIVE MEASURES WITH LEVEL OF FUNCTION: Knee Observations R Knee Girth (cm): 44 cm L Knee Girth (cm): 40.7 cm LE AROM R Knee Extension: 0 Degrees R Knee Flexion: 88 Degrees L Knee Extension: 2 Degrees L Knee Flexion: 120 Degrees LE Strength R Hip Extension: 4/5 R Hip Flexion (L2): 4-/5 R Hip ABduction: 4/5 R Hip ADduction: 4+/5 R Knee Extension (L3): 4+/5 R Knee Flexion: 4+/5 R Ankle Dorsiflexion (L4): 5/5 R Ankle Plantar Flexion: 5/5 L Hip Extension: 4+/5 L Hip Flexion (L2): 5/5 L Hip ABduction: 5/5 L Hip ADduction: 5/5 L Knee Extension (L3): 5/5 L Knee Flexion: 5/5 L Ankle Dorsiflexion (L4): 5/5 L Ankle Plantar Flexion: 5/5 Gait Gait: Modified Independent Gait Distance (feet): community distances Gait Device: Cane Gait Deviations: General Deviations General Deviations/Observations: Antalgic gait, Ann decreased, Non- functional gait speed, Step length decreased Gait Observation: minimal R antalgic gait Stairs: Modified Independent Stairs: stair; 4 steps with step to pattern descending Functional Performance Test Results Assistive Device: None 30 Second Chair Stand Test: 12 reps Timed Up and Go (sec): 12.59 sec 4 Stage Balance Test Narrow base of support (sec): 15 sec Semi-tandem base of support (sec): 8 sec Tandem base of support (sec): 0 sec Single leg stance - right (sec): 0 sec Single leg stance - left (sec): 0 sec Education: Education Learning Preferences: Demonstration, Explanation, Performance, Printed Materials Barriers: None Learning/educational needs: Safety, Home exercise program, Plan of Care Education Provided: Yes, see treatment interventions for education provided Education Provided To: Patient Education Mode/Type: Demonstration, Explanation/Discussion, Literature/Printed Materials, Performance Response to Education/Teach Back: States/Identifies, Return Demonstration TREATMENT: PT Treatment Interventions: Therapeutic Exercise Evaluation Evaluation Therapeutic Exercise: 1: Seated HS curl green band 2: Seated hip abd/add GTB/ball 3: Sit to stand 4: Step ups 2x10 (4 then 6 step), bilateral Skilled Intervention: Patient was educated in proper exercise technique and purpose for exercises. Skilled judgment was used in selection of appropriate interventions. Provided written instruction for home exercise program to facilitate proper performance and compliance. Correct performance of therapeutic exercises was facilitated with verbal and visual cuing. Billing * Evaluation Low Complexity: 1 Unit Therapeutic Exercise Treatment Minutes: 10 Skilled Treatment Time Minutes (timed and untimed codes): 45 Total Session Time (minutes): 45 Session Start Time : 0800 Session Stop Time : 0845 Martita Mascorro, PT, DPT * Martita Mascorro, PT - 12/18/2023 8:32 AM EDT Program_ID:[id number] Access Code: [email or web address] URL: [email or web address] Date: 12-18-2023 Prepared By: Martita Mascorro Program Notes Exercises - Seated Hip Abduction with Resistance - 1 x daily - 7 x weekly - 3 sets - 10 reps - Seated Hip Adduction Isometrics with Ball - 1 x daily - 7 x weekly - 3 sets - 10 reps - Seated Hamstring Curl with Anchored Resistance - 1 x daily - 7 x weekly - 3 sets - 10 reps - Sit to Stand - 1 x daily - 7 x weekly - 3 sets - 10 reps documented in this encounterFlower Hospital05-23-2024 Miscellaneous Notes* PT DISCHARGE - Candace Raymundo, PT - 12/17/2023 9:23 AM EDT SITUATION: only patient and friend present during today's visit. patient reports the following since the last homecare visit: medications/allergies--no changes, no fall. patient reports that she is scheduled tostart outpatient PT tomorrow. 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 Patient is RI with transfers, gait with and without SPC, and HEP. Balance improved with TUG of 14 seconds without an AD compared to 33 seconds with FWW at the initial eval. R knee AAROM: 0-99 degrees. Physical therapy discharged: goals achieved. Functional performance at discharge - bed mobility independent, transfers independent, ambulation independent and stairs independent. Plan of care, goals, and discharge reviewed and agreed upon with patient and/or caregiver. RECOMMENDATION: Patient discharged from home health services. Instructions to include:home exercise program as directed, follow the recommended ambulation program, begin outpatient therapy on 12/18/23 and follow up with provider as scheduled See intervention summary for intervention/education details. documented in this encounterFlower Hospital05-23-2024 Patient's home Note* HH PT DISCHARGE - Candace Raymundo, PT - 12/17/2023 9:23 AM EDT SITUATION: only patient and friend present during today's visit. patient reports the following since the last homecare visit: medications/allergies--no changes, no fall. patient reports that she is scheduled tostart outpatient PT tomorrow. 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 Patient is RI with transfers, gait with and without SPC, and HEP. Balance improved with TUG of 14 seconds without an AD compared to 33 seconds with FWW at the initial eval. R knee AAROM: 0-99 degrees. Physical therapy discharged: goals achieved. Functional performance at discharge - bed mobility independent, transfers independent, ambulation independent and stairs independent. Plan of care, goals, and discharge reviewed and agreed upon with patient and/or caregiver. RECOMMENDATION: Patient discharged from home health services. Instructions to include:home exercise program as directed, follow the recommended ambulation program, begin outpatient therapy on 12/18/23 and follow up with provider as scheduled See intervention summary for intervention/education details. [facility] Work Phone: 1(585) 845-105105-21-2024 Telephone encounter Note* Telephone Encounter - Candace Raymundo PT - 12/15/2023 12:50 PM EDT Chepe Garcia, The patient is scheduled to be discharged from home care PT this , 12/17/23. She is progressing well. I contacted the traveling phlebotomist to help get her scheduled for outpatient PT. Thank you, Candace -PT [facility] Work Phone: [phone]) 516-486405-21-2024 Miscellaneous Notes* Telephone Encounter - Candace Raymundo PT - 12/15/2023 12:50 PM EDT Chepe Garcia, The patient is scheduled to be discharged from home care PT this , 12/17/23. She is progressing well. I contacted the traveling phlebotomist to help get her scheduled for outpatient PT. Thank you, Candace -PT documented in this encounterFlower Hospital05-21-2024 Miscellaneous Notes* PT ROUTINE/REASSESSMENT/RECERT/CASE MGMT - Candace Raymundo PT - 12/15/2023 11:34 AM EDT SITUATION: only patient present during today's visit. patient reports the following since the last homecare visit: medications/allergies--no changes, no fall. patient reports that she would like to do outpatient PT at [facility]. Patient reported compliance with HEP. BACKGROUND: Diagnoses (reason for Home Care): R TKA revision d/t mechanical loosening 12/02; dc to home 12/03 Past Medical History: HTN, asthma, hyperlipidemia, OA left knee. pt's original TKA surgery was in 2018 Weight Bearing/Precaution Changes: no changes; WBAT RLE ASSESSMENT: Focus of visit NOMNC review, assist to schedule outpatient PT at [facility] per patient request, and therapeutic exercises to increase R knee ROM and strength, standing balance, and gait training with SPC. R knee AAROM: 0-94 degrees Spoke with [place], the traveling phlebotomist, who assisted in scheduling outpatient PT for 12/18/23 but will follow to confirm visit. Plan of care, goals, and visit frequency reviewed and agreed upon with patient and/or caregiver. Current Discharge Plan: outpatient rehab Anticipate discharge by 12/17/23 RECOMMENDATION: Next visit to focus on Discharge planning and instructions, instruct on HEP and walking prorgram. See intervention summary for intervention/education details. documented in this encounterFlower Hospital05-21-2024 Patient's home Note* HH PT ROUTINE/REASSESSMENT/RECERT/CASE MGMT - Candace Raymundo, PT - 12/15/2023 11:34 AM EDT SITUATION: only patient present during today's visit. patient reports the following since the last homecare visit: medications/allergies--no changes, no fall. patient reports that she would like to do outpatient PT at [facility]. Patient reported compliance with HEP. BACKGROUND: Diagnoses (reason for Home Care): R TKA revision d/t mechanical loosening 12/02; dc to home 12/03 Past Medical History: HTN, asthma, hyperlipidemia, OA left knee. pt's original TKA surgery was in 2019 Weight Bearing/Precaution Changes: no changes; WBAT RLE ASSESSMENT: Focus of visit NOMNC review, assist to schedule outpatient PT at [facility] per patient request, and therapeutic exercises to increase R knee ROM and strength, standing balance, and gait training with SPC. R knee AAROM: 0-94 degrees Spoke with [place], the traveling phlebotomist, who assisted in scheduling outpatient PT for 12/18/23 but will follow to confirm visit. Plan of care, goals, and visit frequency reviewed and agreed upon with patient and/or caregiver. Current Discharge Plan: outpatient rehab Anticipate discharge by 12/17/23 RECOMMENDATION: Next visit to focus on Discharge planning and instructions, instruct on HEP and walking prorgram. See intervention summary for intervention/education details. [facility] Work Phone: 1(205) 404-884205-17-2024 Telephone encounter Note* Telephone Encounter - Candace Raymundo PT - 12/11/2023 5:05 PM EDT Chepe Garcia, I just wanted to send an update regarding Mariajose. Today she mentioned that she noticed her lymph node in the L submandibular area was swollen and a little tender to touch. Her vitals were WNL and has no fever. Although, she stated that 98.4 was 1 degree higher than her normal temperature. Her knee looks great and she has no other symptoms. I uploaded a picture of her surgical incision located under scanned documents. Please let me know if you have any questions or concerns. ThanksCandacePT [facility] Work Phone: [phone]) 627-769605-17-2024 Miscellaneous Notes* Telephone Encounter - Candace Raymundo PT - 12/11/2023 5:05 PM EDT Chepe Garcia, I just wanted to send an update regarding Mariajose. Today she mentioned that she noticed her lymph node in the L submandibular area was swollen and a little tender to touch. Her vitals were WNL and has no fever. Although, she stated that 98.4 was 1 degree higher than her normal temperature. Her knee looks great and she has no other symptoms. I uploaded a picture of her surgical incision located under scanned documents. Please let me know if you have any questions or concerns. Candace Womack documented in this encounterFlower Hospital05-17-2024 Miscellaneous Notes* PT ROUTINE/REASSESSMENT/RECERT/CASE MGMT - Candace Raymundo PT - 12/11/2023 8:54 AM EDT SITUATION: only patient present during today's visit. patient reports the following since the last homecare visit: medications/allergies--no changes, no fall. patient reports that her lymph node near her L sideusubmandibular area is slightly swollen and tender to touch. Patient reported compliance with HEP. BACKGROUND: Diagnoses (reason for Home Care): R TKA revision d/t mechanical loosening 12/02; dc to home 12/03 Past Medical History: HTN, asthma, hyperlipidemia, OA left knee. pt's original TKA surgery was in 2018 Weight Bearing/Precaution Changes: no changes; WBAT RLE ASSESSMENT: Focus of visit: standing exercises, gait training, and progress R knee ROM and quad strength to improve independence and ease with transfers and gait. Completed standing side stepping, R hip flexion, R HS curls, B heel raises. Amb 100 ft with SPC, SBA for balance. R knee AAROM: -3 - 88 degrees supine. R knee flexion: 90 degrees while sitting. Plan of care, goals, and visit frequency reviewed and agreed upon with patient and/or caregiver. Current Discharge Plan: outpatient rehab Anticipate discharge by 12/19/23. RECOMMENDATION: Next visit to focus on NOMNC review, assist to schedule outpatient PT at [facility] in [place] per patient request, and therapeutic exercises to increase R knee ROM and strength, standing balance, and gait training with SPC. See intervention summary for intervention/education details. documented in this encounterFlower Hospital05-17-2024 Patient's home Note* PT ROUTINE/REASSESSMENT/RECERT/CASE MGMT - Candace Raymundo PT - 12/11/2023 8:54 AM EDT SITUATION: only patient present during today's visit. patient reports the following since the last homecare visit: medications/allergies--no changes, no fall. patient reports that her lymph node near her L sideusubmandibular area is slightly swollen and tender to touch. Patient reported compliance with HEP. BACKGROUND: Diagnoses (reason for Home Care): R TKA revision d/t mechanical loosening 12/02; dc to home 12/03 Past Medical History: HTN, asthma, hyperlipidemia, OA left knee. pt's original TKA surgery was in 2018 Weight Bearing/Precaution Changes: no changes; WBAT RLE ASSESSMENT: Focus of visit: standing exercises, gait training, and progress R knee ROM and quad strength to improve independence and ease with transfers and gait. Completed standing side stepping, R hip flexion, R HS curls, B heel raises. Amb 100 ft with SPC, SBA for balance. R knee AAROM: -3 - 88 degrees supine. R knee flexion: 90 degrees while sitting. Plan of care, goals, and visit frequency reviewed and agreed upon with patient and/or caregiver. Current Discharge Plan: outpatient rehab Anticipate discharge by 12/19/23. RECOMMENDATION: Next visit to focus on NOMNC review, assist to schedule outpatient PT at [facility] in [place] per patient request, and therapeutic exercises to increase R knee ROM and strength, standing balance, and gait training with SPC. See intervention summary for intervention/education details. [facility] Work Phone: [phone]) 309-354505-16-2024 Miscellaneous Notes* PT ROUTINE/REASSESSMENT/RECERT/CASE MGMT - Candace Raymundo, PT - 12/10/2023 10:27 AM EDT SITUATION: only patient present during today's visit. patient reports the following since the last homecare visit: medications/allergies--no changes, no fall. patient reports compliance with HEP and walking. BACKGROUND: Diagnoses (reason for Home Care): R TKA revision d/t mechanical loosening 12/02; dc to home 12/03 Past Medical History: HTN, asthma, hyperlipidemia, OA left knee. pt's original TKA surgery was in 2018 Weight Bearing/Precaution Changes: WBAT RLE ASSESSMENT: Focus of visit therapeutic exercises to increase R knee ROM and strength, seated heel slides and LAQ added to HEP, and gait training. Dressing removal completed today. Patient provided verbal consentfor wound photography. Initiated standing heel raises and HS curls with RLE at kitchen sink area x10 reps. R knee AAROM: 4-85 degrees. Plan of care, goals, and visit frequency reviewed and agreed upon with patient and/or caregiver. Current Discharge Plan: outpatient rehab. Patient wants to go to outatient PT at [facility]. Anticipate discharge by 12/19/23. RECOMMENDATION: Next visit to focus on standing exercises, gait training, and progress R knee ROM and quad strengthto improve independence and ease with transfers and gait. See intervention summary for intervention/education details. documented in this encounterFlower Hospital05-16-2024 Patient's home Note* PT ROUTINE/REASSESSMENT/RECERT/CASE MGMT - Candace Raymundo PT - 12/10/2023 10:27 AM EDT SITUATION: only patient present during today's visit. patient reports the following since the last homecare visit: medications/allergies--no changes, no fall. patient reports compliance with HEP and walking. BACKGROUND: Diagnoses (reason for Home Care): R TKA revision d/t mechanical loosening 12/02; dc to home 12/03 Past Medical History: HTN, asthma, hyperlipidemia, OA left knee. pt's original TKA surgery was in 2019 Weight Bearing/Precaution Changes: WBAT RLE ASSESSMENT: Focus of visit therapeutic exercises to increase R knee ROM and strength, seated heel slides and LAQ added to HEP, and gait training. Dressing removal completed today. Patient provided verbal consentfor wound photography. Initiated standing heel raises and HS curls with RLE at [facility] area x10 reps. R knee AAROM: 4-85 degrees. Plan of care, goals, and visit frequency reviewed and agreed upon with patient and/or caregiver. Current Discharge Plan: outpatient rehab. Patient wants to go to outatient PT at [facility]. Anticipate discharge by 12/19/23. RECOMMENDATION: Next visit to focus on standing exercises, gait training, and progress R knee ROM and quad strengthto improve independence and ease with transfers and gait. See intervention summary for intervention/education details. [facility] Work Phone: [phone]) 831-990405-14-2024 Telephone encounter Note* Telephone Encounter - Candace Raymundo PT - 12/08/2023 8:02 PM EDT Belinda Garcia, The patient's BP was slightly elevated during today's visit with 142/82 at rest and 142/80 at rest after completing PT visit. All other vitals were WNL and she had no headaches or dizziness. Home care parameters are to notify if a patient's systolic BP is >140. Candace Womack -PT [facility] Work Phone: [phone]) 220-968105-14-2024 Miscellaneous Notes* Telephone Encounter - Candace Raymundo, PT - 12/08/2023 8:02 PM EDT Belinda Garcia, The patient's BP was slightly elevated during today's visit with 142/82 at rest and 142/80 at rest after completing PT visit. All other vitals were WNL and she had no headaches or dizziness. Home care parameters are to notify if a patient's systolic BP is >140. Candace Womack -PT documented in this encounterFlower Hospital05-14-2024 Miscellaneous Notes* PT ROUTINE/REASSESSMENT/RECERT/CASE MGMT - Candace Raymundo PT - 12/08/2023 3:08 PM EDT SITUATION: daughter present during today's visit. patient reports the following since the last homecare visit:medications/allergies--no changes, no fall. patient reports compliance with HEP and walking in homemore. She reported that this is her 3rd R knee surgery. She stated that she would like to do outpatient at [facility] due to being close to her home when she is discharged from home care services. BACKGROUND: Diagnoses (reason for Home Care): R TKA revision d/t mechanical loosening 12/02; dc to home 12/03 Past Medical History: HTN, asthma, hyperlipidemia, OA left knee. pt's original TKA surgery was in 2019 Weight Bearing/Precaution Changes: WBAT RLE ASSESSMENT: Focus of visit: gait training and progression of TKA HEP. Patient ambulated 120 ft with FWW, SBA for balance, min verbal cues to improve R knee flexion with swing phase then heel strike; vs stiff knee gait. Completed bed and sit to stand transfer with SBA for balance. R knee AAROM: 8-80 degrees. Progressed HEP to also include supine heel slides, SAQ, hip abduction, SLR. BP slightly elevated and above home care parameters. telephone encounter sent to physician to notify of BP. Patient had no headache or dizziness throughout the visit. All other vitals were WNL. Plan of care, goals, and visit frequency reviewed and agreed upon with patient and/or caregiver. Current Discharge Plan: outpatient rehab Anticipate discharge by 12/19/23. RECOMMENDATION: Next visit to focus on: therapeutic exercises to increase R knee ROM and strength, seated heel slides and LAQ if tolerable and gait training. Possible dressing removal next visit or on Thursday. See intervention summary for intervention/education details. documented in this encounterFlower Hospital05-14-2024 Patient's home Note* PT ROUTINE/REASSESSMENT/RECERT/CASE MGMT - Candace Raymundo, PT - 12/08/2023 3:08 PM EDT SITUATION: daughter present during today's visit. patient reports the following since the last homecare visit:medications/allergies--no changes, no fall. patient reports compliance with HEP and walking in homemore. She reported that this is her 3rd R knee surgery. She stated that she [place] [facility] [place] when she is discharged from home care services. BACKGROUND: Diagnoses (reason for Home Care): R TKA revision d/t mechanical loosening 12/02; dc to home 12/03 Past Medical History: HTN, asthma, hyperlipidemia, OA left knee. pt's original TKA surgery was in 2019 Weight Bearing/Precaution Changes: WBAT RLE ASSESSMENT: Focus of visit: gait training and progression of TKA HEP. Patient ambulated 120 ft with FWW, SBA for balance, min verbal cues to improve R knee flexion with swing phase then heel strike; vs stiff knee gait. Completed bed and sit to stand transfer with SBA for balance. R knee AAROM: 8-80 degrees. Progressed HEP to also include supine heel slides, SAQ, hip abduction, SLR. BP slightly elevated and above home care parameters. telephone encounter sent to physician to notify of BP. Patient had no headache or dizziness throughout the visit. All other vitals were WNL. Plan of care, goals, and visit frequency reviewed and agreed upon with patient and/or caregiver. Current Discharge Plan: outpatient rehab Anticipate discharge by 12/19/23. RECOMMENDATION: Next visit to focus on: therapeutic exercises to increase R knee ROM and strength, seated heel slides and LAQ if tolerable and gait training. Possible dressing removal next visit or on Thursday. See intervention summary for intervention/education details. [facility] Work Phone: [phone]) 283-856205-12-2024 food safety manager Note* Case Communication - Gema Cummins PT - 12/06/2023 9:27 PM EDTPT start of care visit completed 12/04. Diagnoses (reason for Home Care): rt TKA revision d/t mechanical loosening 12/02; dc to home 12/03. Past Medical History: HTN, asthma, hyperlipidemia, OA left knee. Pt's original TKA surgery was in 2019. This is her second revision surgery since. Weight Bearing or Surgical Precautions: WBAT rt leg Pt lives alone in a 1 floor condo w/ no entry steps. Has 3 dtrs in the area who assist asneeded. 1 dtr is staying w/ pt for at least a few days. Prior to surgery3 , pt was walking without a device and denies any falls. Postop dressing intact w/ no visible drainage or signs of infection. Rt knee AROM 10-62 degrees. Ptverbalized understanding of all instructions including when to call clinician for guidance; signs and symptoms of infection, DVT, and PE; proper positioning of operated leg to minimize swelling and maximize knee ROM; scheduling process; and importance of walking every hour when awake. Plan is to continue PT 3w1,2w1 beginning wk of 12/05 for functional mobility, endurance, ROM, balance, and safety training. Postop dressing to be removed 12/09-12/11 per protocol Pt has followup appt w/ortho on 12/17. She will likely benefit from outpatient PT at conclusion of homecare services although she has not yet scheduled it. Please call mewith any questions. GENNY Womack [facility] Work Phone: [phone]) 371-787905-12-2024 Miscellaneous Notes* Case Communication - Gema Cummins PT - 12/06/2023 9:27 PM EDTPT start of care visit completed 12/04. Diagnoses (reason for Home Care): rt TKA revision d/t mechanical loosening 12/02; dc to home 12/03. Past Medical History: HTN, asthma, hyperlipidemia, OA left knee. Pt's original TKA surgery was in 2019. This is her second revision surgery since. Weight Bearing or Surgical Precautions: WBAT rt leg Pt lives alone in a 1 floor condo w/ no entry steps. Has 3 dtrs in the area who assist asneeded. 1 dtr is staying w/ pt for at least a few days. Prior to surgery3 , pt was walking without a device and denies any falls. Postop dressing intact w/ no visible drainage or signs of infection. Rt knee AROM 10-62 degrees. Ptverbalized understanding of all instructions including when to call clinician for guidance; signs and symptoms of infection, DVT, and PE; proper positioning of operated leg to minimize swelling and maximize knee ROM; scheduling process; and importance of walking every hour when awake. Plan is to continue PT 3w1,2w1 beginning wk of 12/05 for functional mobility, endurance, ROM, balance, and safety training. Postop dressing to be removed 12/09-12/11 per protocol Pt has followup appt w/ortho on 12/17. She will likely benefit from outpatient PT at conclusion of homecare services although she has not yet scheduled it. Please call mewith any questions. GENNY Womack * PT SOC/ADRIANA/FOLLOW UP/OTHER - Gema Cummins PT - 12/05/2023 11:59 AM EDT SITUATION: daughter present during today's visit. patient reports this is her third rt knee surgery. states she did not fill her oxycodone prescription because she is tolerating pain w/ tylenol BACKGROUND: Diagnoses (reason for Home Care): rt TKA revision d/t mechanical loosening 12/02; dc to home 12/03 Past Medical History: HTN, asthma, hyperlipidemia, OA left knee. pt's original TKA surgery was in 2018 Weight Bearing or Surgical Precautions: WBAT rt leg ASSESSMENT: [facility] Reviewed and explained homecare services. Plan of care, goals, and visit frequency developed, reviewed, and agreed upon with patient and/or caregiver. Patient Goal: walk without rt knee pain Patient will benefit from continued physical therapy to address the following deficits: balance, gait, endurance, rt knee ROM and transfers. Current Discharge Plan: outpatient rehab. Anticipate discharge by 12/19/23 RECOMMENDATION: Next visit to focus on continued posture/gt training, progression of TKA hep instr/review Agreeable to PT; declining NA. See intervention summary for intervention/education details. documented in this encounterFlower Hospital05-11-2024 Patient's home Note* PT SOC/ADRIANA/FOLLOW UP/OTHER - Gema Cummins PT - 12/05/2023 11:59 AM EDT SITUATION: daughter present during today's visit. patient reports this is her third rt knee surgery. states she did not fill her oxycodone prescription because she is tolerating pain w/ tylenol BACKGROUND: Diagnoses (reason for Home Care): rt TKA revision d/t mechanical loosening 12/02; dc to home 12/03 Past Medical History: HTN, asthma, hyperlipidemia, OA left knee. pt's original TKA surgery was in 2018 Weight Bearing or Surgical Precautions: WBAT rt leg ASSESSMENT: [facility] Reviewed and explained homecare services. Plan of care, goals, and visit frequency developed, reviewed, and agreed upon with patient and/or caregiver. Patient Goal: walk without rt knee pain Patient will benefit from continued physical therapy to address the following deficits: balance, gait, endurance, rt knee ROM and transfers. Current Discharge Plan: outpatient rehab. Anticipate discharge by 12/19/23 RECOMMENDATION: Next visit to focus on continued posture/gt training, progression of TKA hep instr/review Agreeable to PT; declining NA. See intervention summary for intervention/education details. [facility]05-10-2024 Telephone encounter Note* Telephone Encounter - Gema Cummins PT - 12/04/2023 5:04 PM EDT Patient accepted and confirmed home health start of care (SOC) for 12/05/23. Visit time established. [facility] Work Phone: [phone] Miscellaneous Notes* Telephone Encounter - Gema Cummins PT - 12/04/2023 5:04 PM EDT Patient accepted and confirmed home health start of care (SOC) for 12/05/23. Visit time established. documented in this encounterFlower Hospital05-10-2024 Telephone encounter Note * Telephone Encounter - Kiki Noel - 12/04/2023 3:20 PM EDT Patient accepted and confirmed home health start of care (SOC) for 12/05/23. [facility]05-10-2024 Miscellaneous Notes* Telephone Encounter - Kiki Noel - 12/04/2023 3:20 PM EDT Patient accepted and confirmed home health start of care (SOC) for 12/05/23. documented in this encounterFlower Hospital05-10-2024 NoteHNO ID: [id number] Author: PAPI MAN MD Service: General Internal Medicine Author Type: Physician Type: Progress Notes Filed: 12/04/2023 11:07 Note Text: INPATIENT PROGRESS NOTES Patient Name: Mariajose Marcelino DATE of SERVICE: 12/04/2023 TIME of SERVICE: 7:40 AM PRIMARY SERVICE: medicine INTERVAL HPI: Uneventful night, no nausea or vomiting. No lightheadedness or dizziness. Pain is well-controlled ASSESSMENT AND PLAN: Osteoarthritis, status post right total knee revision, DVT prophylaxis with aspirin Asthma continue Singulair Hypertension currently not any antihypertensive medication Hyperlipidemia continue statins Hypothyroidism continue Synthroid Possible discharge today Home-going meds reviewed Plan of care discussed with: Provider, RN, Patient. PERTINENT ROS: All other reviewed and negative other than HPI. MEDICATIONS: Current Facility-Administered Medications Medication Dose Route Frequency scopolamine - VERIFY patch OTHER q 8 H scopolamine - REMOVE PATCH OTHER ONCE rosuvastatin 40 mg tab(s) (CRESTOR) 40 mg ORAL DAILY montelukast 10 mg tab(s) (SINGULAIR) 10 mg ORAL AT BEDTIME levothyroxine 50 mcg tab(s) (SYNTHROID) 50 mcg ORAL BEFORE BREAKFAST DAILY oxyCODONE IR 5-10 mg tab(s) (ROXICODONE) 5-10 mg ORAL q 3 H PRN acetaminophen 1,000 mg tab(s) (TYLENOL) 1,000 mg ORAL q 8 H ondansetron orally disintegrating 4 mg tab(s) (ZOFRAN ODT) 4 mg ORAL q 6 H PRN Or ondansetron (PF) 4 mg injection (ZOFRAN) 4 mg INTRAVENOUS q 6 H PRN magnesium hydroxide 400 mg/5 mL 30 mL (MOM) 30 mL ORAL DAILY PRN [START ON 12/05/2023] bisacodyl EC 10 mg tab(s) (DULCOLAX) 10 mg ORAL DAILY aluminum-magnesium hydroxide-simethicone 200-200-20 mg/5 mL 30 mL 30 mL ORAL q 2 H PRN ascorbic acid (vitamin C) 500 mg tab(s) (VITAMIN C) 500 mg ORAL BID w MEALS docusate sodium 100 mg cap(s) (COLACE) 100 mg ORAL BID senna 17.2 mg tab(s) (SENOKOT) 17.2 mg ORAL AT BEDTIME aspirin, enteric coated 81 mg tab(s) 81 mg ORAL BID lactated ringers iv infusion 100 mL/hr INTRAVENOUS CONTINUOUS HYDROmorphone 0.4 mg injection (DILAUDID) 0.4 mg INTRAVENOUS q 3 H PRN keTORolac 15 mg injection (Toradol) 15 mg INTRAVENOUS q 6 H PHYSICAL EXAM: Patient Vitals for the past 24 hrs: BP Temp Temp src Pulse Resp SpO2 Height Weight 12/04/23 0839 143/65 -- -- 65 -- 96 % -- -- 12/04/23 0506 140/57 36.6 ?C (97.9 ?F) -- 60 19 99 % -- -- 12/03/23 2326 147/85 36.3 ?C (97.3 ?F) Oral 60 16 96 % -- -- 12/03/23 1949 152/71 36.4 ?C (97.5 ?F) -- 72 18 100 % -- -- 12/03/23 1847 -- -- -- -- 16 -- -- -- 12/03/23 1714 155/76 36.6 ?C (97.8 ?F) Tympanic 74 18 98 % -- -- 12/03/23 1643 149/77 36.4 ?C (97.6 ?F) Temporal Art 72 16 99 % -- -- 12/03/23 1616 -- -- -- -- -- -- 152.4 cm (5') 66.7 kg (147 lb) 12/03/23 1615 141/66 36.3 ?C (97.3 ?F) Axillary 74 16 92 % -- -- 12/03/23 1600 144/65 -- -- 75 13 92 % -- -- 12/03/23 1545 152/72 -- -- 78 17 94 % -- -- 12/03/23 1530 168/77 -- -- 83 17 99 % -- -- 12/03/23 1515 150/72 -- -- 88 16 99 % -- -- 12/03/23 1505 156/72 36.5 ?C (97.7 ?F) Temporal Art 93 17 98 % -- -- Body mass index is 28.71 kg/m?. GENERAL: Alert, no distress, cooperative NECK: No jugulovenous distention LUNGS: Lungs clear to auscultation, CARDIAC: Normal S1 and S2; no rubs, murmurs, or gallops ABDOMEN: Abdomen soft, non-tender, BS normal, No masses or organomegaly EXTREMITIES: no edema CBC: Recent Labs 12/04/23 0635 WBC 16.03* RBC 3.89* HB 11.7 HCT 34.8* PLT 230 MCV 89.5 MCH 30.1 MPV 11.1 Coags: CMP: Recent Labs 12/04/23 0635 NA 135* K 4.5 CHLOR 100 CO2 26 BUN 12 CREAT 0.67 GLUC 129* CA 9.3 ANION 9 SIGNATURE: Papi Man [facility] [id number] Telephone encounter Note* Telephone Encounter - Caren Andrade PSS - 12/04/2023 9:19 AM EDT Date/Time: 12/04/2023 9:19 AM Spoke with Patient @ phone #: [phone] - Preferred # for contact: [phone] Have you received help from a home care company in the last 60 days? No Are you agreeable to [facility] services? Yes What address will we be seeing you at? [address] [place] [address] Do you have any upcoming appointments or things we need to schedule around? No Do you have a teachable CG or can you manage your care independently? Yes [facility]05-10-2024 Miscellaneous Notes* Telephone Encounter - Caren Andrade PSS - 12/04/2023 9:19 AM EDT Date/Time: 12/04/2023 9:19 AM Spoke with Patient @ phone #: [phone] - Preferred # for contact: [phone] Have you received help from a home care company in the last 60 days? No Are you agreeable to HHC services? Yes What address will we be seeing you at? [address] [place] [address] [id number] Do you have any upcoming appointments or things we need to schedule around? No Do you have a teachable CG or can you manage your care independently? Yes documented in this encounterFlower Hospital05-10-2024 NoteHNO ID: [id number] Author: ROYCE PETERSON PA-C Service: Orthopaedic Surgery Author Type: Physician Dry Cure Worker Type: Progress Notes Filed: 12/04/2023 08:22 Note Text: POSTOP NOTE ORTHOPAEDIC SURGERY SERVICE DATE: 12/04/2023 SERVICE TIME: 8:21 AM IMPRESSION/PLAN: S/P Procedure(s) (LRB): REVISION JOINT TOTAL KNEE FEMORAL AND ENTIRE TIBIAL COMPONENT (Right) on 12/03/2023 Physical Therapy evaluation WBAT RLE DVT prophylaxis: Intermittent pneumatic compression device (IPCD) and ASA 81 BID Pain control Case Management for discharge planning Plan of care discussed with: Provider, RN, Patient. Patient Active Hospital Problem List: Complication of internal orthopedic prosthetic device, implant, or graft (HCC) (12/03/2023) POST OPERATIVE COMPLICATIONS: Complicated by uneventful/none SUBJECTIVE: Patient states that they are comfortable Well Controlled knee pain. Denies incisional pain. OBJECTIVE: VITAL SIGNS: BP 140/57 Pulse 60 Temp 36.6 ?C (97.9 ?F) Resp 19 Ht 152.4 cm (5') Wt 66.7 kg (147 lb) SpO2 99% BMI 28.71 kg/m? INTAKE AND OUTPUT: Intake/Output Summary (Last 24 hours) at 12/04/2023 0821 Last data filed at 12/04/2023 0524 Gross per 24 hour Intake 3436 ml Output 800 ml Net 2636 ml LABS: Hemoglobin Date Value Ref Range Status 12/04/2023 11.7 11.5 - 15.5 g/dL Final 12/03/2023 12.9 11.5 - 15.5 g/dL Final Hematocrit Date Value Ref Range Status 12/04/2023 34.8 (L) 36.0 - 46.0 % Final 12/03/2023 38.3 36.0 - 46.0 % Final Platelet Count Date Value Ref Range Status 12/04/2023 230 150 - 400 k/uL Final 11/12/2023 252 150 - 400 k/uL Final WBC Date Value Ref Range Status 12/04/2023 16.03 (H) 3.70 - 11.00 k/uL Final 11/12/2023 5.17 3.70 - 11.00 k/uL Final Creatinine Date Value Ref Range Status 12/04/2023 0.67 0.58 - 0.96 mg/dL Final 11/13/2023 0.70 0.51 - 0.95 mg/dL Final Comment: Patients receiving either N-Acetylcysteine (NAC) or Metamizole prior to venipuncture, may have falsely depressed results. Potassium Date Value Ref Range Status 12/04/2023 4.5 3.7 - 5.1 mmol/L Final 11/13/2023 4.5 3.5 - 5.1 mmol/L Final VTE Prophylaxis: Active VTE Risk Category Order: 12/03/231614 VTE RISK CATEGORY: SURGICAL HIGH RISK (ME,KS) Active VTE Medication Orders: Anticoagulant AND Antiplatelet Medications (From admission, onward) Start Dose Route Frequency Last Action Ordered Stop 12/04/23 0900 aspirin, enteric coated 81 mg tab(s) (Surgical Risk Categories) 81 mg ORAL 2 TIMES DAILY Given, 12/03 0749 12/03/23 161 -- Active VTE Prophylaxis Orders: 12/03/231614 PNEUMATIC COMPRESSION STOCKINGS ([place], [place]) PHYSICAL EXAMINATION: Right Lower Extremity: Dorsalis pedis pulses palpable. Posterior tibial pulses palpable. Dorsi flexion 5/5. Plantar flexion 5/5. Extensor hallucis extension: 5/5. Sensory intact to light touch L4-S1. Dressing clean, dry, and intact. Surgical site no drainage and Silverlon intact. Problem Review and Assessment: Skin and Abdominal Wall: Patient monitored, no new events overnight Cardiovascular and Vascular: Patient monitored, no new events overnight Respiratory: Patient monitored, no new events overnight Endocrine and Metabolic: Patient monitored, no new events overnight Gastrointestinal: Patient monitored, no new events overnight Genitourinary and Nephrology: Patient monitored, no new events overnight Behavioral, Cerebrovascular and Nervous: Patient monitored, no new events overnight Infectious: Patient monitored, no new events overnight DATA: Diagnostic tests reviewed for today's visit: Most recent labs and imaging results. SIGNATURE: Royce Peterson PA-C PATIENT NAME: Mariajose Marcelino DATE: December 04, 2023 TIME: 8:21 AM The patient has undergone major orthopedic surgery and participating in therapy. Pain cannot be managed within an average of 30 MED per day. Patient requiring average of higher than 30 MED per day in order to control pain and allow patient to actively and safely participate in therapy and this is the lowest dose consistent with patient's medical condition. Non-narcotic medication options have been discussed. In addition, the patient has been advised of the benefits and risks of the opioid (including the potential for addiction). Patient demonstrated understanding of risks versus benefits.[facility] NoteHNO ID: [id number] Author: CONCEPCION GUO MD Service: Anesthesiology Author Type: Anesthesiologist Type: Anesthesia Procedure Notes Filed: 12/03/2023 12:41 Note Text: ANESTHESIOLOGY PROCEDURE NOTE Peripheral Nerve Block General Information Procedure Start Time/Medication Administration: 12/03/2023 11:20 AM Procedure End time: 12/03/2023 11:23 AM Patient location during procedure: OR Timeout Performed Pre-procedure: timeout performed Consent Obtained: Yes Patient identity confirmed: arm band and patient sedated or unresponsive Reason for block: post-op pain management/at surgeon's request Staffing Anesthesiologist: Concepcion Guo MD SRNA: Valentino Osorio SRNA Performed by: BRIAN Preparation Sterility Preparation: hand hygiene performed prior to procedure, sterile gloves, drapes, and procedure tray, surgical cap used, mask used, sterile drape used during line insertion, skin prep agent completely dried prior to procedure Site Prep: Chloraprep Pre-Procedure Neuro Exam Location: RLE Sensory: intact Motor: intact Procedure Details Patient Position: supine Monitoring: Pulse OX, EKG and NIBP Block Type Lower Extremity: distal femoral (adductor canal) Laterality: right Injection Technique: single-shot Ultrasound Guided: Yes Image in Chart: yes Needle Needle Type: echogenic Needle Gauge: 20 G Needle Length: 83 mm Needle Localization: ultrasound Test Dose Response: negative test dose Assessment Injection assessment: negative aspiration, no paresthesia on injection, incremental injection and local visualized surrounding nerve on ultrasound Paresthesia: none Post-Procedure Neuro Exam Expected Regional Anesthesia: Yes Medications Administered dexamethasone sodium phosphate injection (DECADRON) - peripheral nerve block 4 mg - 12/03/2023 11:20:00 AM ropivacaine (PF) 5 mg/mL (0.5 %) injection (NAROPIN) - peripheral nerve block 20 mL - 12/03/2023 11:20:00 AM Comments For this procedure, I was physically present for this entire procedure. Concepcion Guo MD SIGNATURE: Derek Fritz APRN.CRNA PATIENT NAME: Mariajose Marcelino DATE: December 03, 2023 TIME: 12:28 PM CSN: [id number] NoteHNO ID: [id number] Author: VALENTINO OSORIO SRNA Service: Anesthesiology Author Type: Student Type: Anesthesia Procedure Notes Filed: 12/03/2023 11:33 Note Text: ANESTHESIOLOGY PROCEDURE NOTE Airway General Information Procedure Start Time/Medication Administration: 12/03/2023 11:18 AM Procedure End Time: 12/03/2023 11:19 AM Patient location during procedure: OR Patient identity confirmed: arm band and patient sedated or unresponsive Staffing Anesthesiologist: Concepcion Guo MD Performed by: anesthesiologist Indications and Patient Condition Indications for airway management: anesthesia Preoxygenated: yes anesthesia circuit Patient position: sniffing Method: asleep Difficult Mask: No Airway Accessory: oral airway Final Airway Details Final airway type: endotracheal airway Final Endotracheal Airway: ETT Cuffed: yes Successful intubation technique: direct laryngoscopy Devices used: intubating stylet Endotracheal tube insertion site: oral Blade: Lana Blade size: #3 ETT size (mm): 7.0 Measured from: lips Measurement (cm): 20 Placement verified by: capnometry Cormack-Lehane Classification: grade I - full view of glottis Number of attempts at approach: 3 or more Ventilation between attempts: BVM Other Attempts Unsuccessful attempted endotracheal techniques: direct laryngoscopy Airway not difficult SIGNATURE: BRIAN Cadena PATIENT NAME: Mariajose Marcelino DATE: December 03, 2023 TIME: 11:32 AM CSN: [id number] Miscellaneous Notes* Telephone Encounter - Vidal Carr RN - 11/13/2023 10:17 AM EDT Spoke with pt and reviewed results. Also reviewed high potassium foods. Pt will go to the lab earlynext week for repeat BMP. Vidal Carr RN November 13, 2023 10:18 AM * Telephone Encounter - Lalitha Thomas PA - 11/13/2023 9:53 AM EDT Mariajose Marcelino is a 67 year old female who is scheduled for Procedure(s): REVISION JOINT TOTAL KNEE FEMORAL AND ENTIRE TIBIAL COMPONENT (Right) at the request of Dr. Linda Garcia at [facility] 12/03/2023. Repeat BMP ordered for elevated K+ levels. documented in [facility]04-18-[facility]24 Instructions* Patient Instructions* Lalitha Thomas PA - 11/12/2023 9:04 AM EDT PATIENT PREOPERATIVE INSTRUCTIONS Yanira Garcia MD has scheduled you for your procedure at this surgery center: [facility]: [phone] -- [address] [address]. Please read below carefully for your personalized instructions. Arrival Time for Surgery: - The Surgery Center or hospital where you are having surgery will call the afternoon before surgery (or Thursday for Thursday surgery) with a scheduled arrival time. - If you have not heard by 4 pm, please contact the surgery center above. Please be aware that emergency situations arise, which may delay or change your surgical time. If this happens, we will notify you as soon as possible and regret any inconvenience. Dietary Restrictions: - No solid food after midnight. - You may have 12 ounces of clear liquids (water, clear juices such as apple juice or gatorade, carbonated beverages, clear tea, black coffee, jello) until 2 hours before scheduled arrival at facility. - Do not drink any alcohol after midnight the night before your surgery. Medications: Unless instructed differently below, stay on all of your medications until your surgery. If you start any new medications after today's visit, please contact your surgeon. Pre-Surgery Med Instructions Medication Instructions Lactobacillus acidophilus (PROBIOTIC ORAL) Do not take the day of surgery albuterol sulfate (PROAIR HFA INHALATION) rosuvastatin (CRESTOR) 40 mg tablet Take the day of surgery with a small sip of water levothyroxine (SYNTHROID) 50 mcg tablet Take the day of surgery with a small sip of water montelukast (SINGULAIR) 10 mg tablet Take the day of surgery with a small sip of water Mupirocin Instructions: Apply 1/2 inch of ointment with a Q-tip to both nostrils in the morning andafternoon for 5 consecutive days before surgery. Do not use on the morning of your COVID swab, resume afterwards. If you start any new medications after today's visit, please contact the surgeon's office. Blood Thinning Medications: - Stop NSAIDS (Ibuprofen, Advil, Aleve, Motrin, Celebrex, Mobic, etc.) 7 days before surgery, as directed by your surgeon. - Stop Aspirin 7 days before surgery, as directed by your surgeon. - Stop Vitamin E, ALL multi-vitamins, herbals and dietary supplements 14 days before surgery. - You may take Tylenol (Acetaminophen) or any of your pain medications that do not contain aspirin or NSAIDS as needed. Important Reminders: - If you are prescribed inhalers for breathing, continue using them. -Please be sure to brush your teeth and you can use mouth wash or rinse your mouth if dry. - Candy, mints, and tobacco products are NOT permitted the morning of surgery. - Hearing aids, dentures and glasses may be worn the morning of surgery. - NO jewelry, body piercings, makeup, hairpins or contacts are to be worn the day of surgery. If you develop symptoms such as a fever, cold, or flu, or have other changes to your health within TWO DAYS of scheduled surgery or the morning of surgery, please contact the surgery center above. Personal Belongings: -Please have photo ID and insurance cards. -If you do not have a copy of advance directives on file with us, please bring a copy with you on the day of surgery. - Leave ALL valuables and money at home or with family members. For Outpatient Procedures: - YOU MUST HAVE A RESPONSIBLE POLICE PILOT TAKE YOU HOME. A MEN'S BASKETBALL COACH OR MECHANICAL SERVICE REPRESENTATIVE CANNOT BE MADE A RESPONSIBLE POLICE PILOT. - We recommend that a responsible person stays with you overnight to take care of you. - You cannot stay in a hotel alone after outpatient surgery. You will not be permitted to have yoursurgery, if you do not have someone to take care of you. If you already have an Advance Directive, please fax a copy to [phone] or email to for it to be added to your chart. If you do not have an Advance Directive, you can find the appropriate form and more information at [email or web address]. We recommend that youcomplete the Advance Directive form found on the website and bring it with you the day of your surgery. It can be witnessed and scanned into your chart that day. KOMAL Rangel documented in this encounterF[facility]04-18-2024 History and physical note * Lalitha Thomas PA - 11/12/2023 8:51 AM EDT HISTORY AND PHYSICAL EXAMINATION SERVICE DATE: 11/12/2023 SERVICE TIME: 9:00 AM PRIMARY CARE PHYSICIAN: Deanna Aponte DO, DO Assessment Patient has the following medical conditions which may affect marco-operative course: Essential hypertension Assessment: Patient reports she no longer requires BP medications after weight loss, EKG ordered. Last 3 Encounter BP Readings: Date: BP: 11/12/2023 143/68 12/28/2022 163/72 06/23/2022 126/76 Other hyperlipidemia Assessment: Continue statin therapy. Mild intermittent asthma without complication Assessment: Follows with PCP. Compliant on inhaler. Denies recent exacerbations or hospitalizations. Lungs CTA. Acquired hypothyroidism Assessment: Clinically euthyroid, continue levothyroxine. Bragg Activity Status Index: METS: Climb a flight of stairs or walk up a hill (5.50 METs) DASI Score: 5.5 Patient denies any chest pain or undue shortness of breath with the above physical activity. Clinical Frailty Scale: 3. Well, with treated comorbid disease STOP-Bang Score: Has or is being treated for high blood pressure Patient over 50 years old Denies snoring loudly Denies feeling tired, fatigued, or sleepy during the daytime Has not been observed to stop breathing or choking/gasping during sleep BMI less than or equal to 35 kg/m^2 Does not have a large neck Non-male patient STOP-Bang Score: 2 [id number] Score: Age: 65-74 Sex: female CHF history: No Hypertension history: Yes Stroke/TIA/thromboembolism history: No Vascular disease history: No Diabetes history: No [id number] Score: 3 ANESTHESIA FINDINGS: Intubation History: No history of difficult intubation. No abnormal airway history Significant Anesthesia Considerations: none Airway History: No history of difficult airway No abnormal airway history I - PHYSICAL EVALUATION AIRWAY Patient intubated: No. Tracheostomy tube not present Mallampati: III. TM distance: >3 FB. Neck ROM: full ROM without neurological symptoms. Mouth opening: adequate. Short neck: no. Thick neck: no Lip Bite Test: II Microretrognathia/Micronagthia/Recessed Chin: No DENTAL Dental findings: teeth intact. II - ANESTHESIA PLAN Anesthetic plan additional comments: *PACC/TCI - anesthesia choice. Beta Allegra Monitoring Plan Post Procedure Analgesic Plan Prepared for Surgery: optimally prepared for surgery, pending [see comment]. EKG and labs. CONSULTS: Patient does not require consults for optimization at this time Planned Anesthetic: anesthesia choice The Following Tests/Procedures Have Been Initiated: Orders Placed This Encounter CMP Standing Status: Future Standing Expiration Date: 02/11/2024 HGB A1C Standing Status: Future Standing Expiration Date: 02/11/2024 IRON + TIBC Standing Status: Future Standing Expiration Date: 02/11/2024 FERRITIN BLD Standing Status: Future Standing Expiration Date: 02/11/2024 CBC with Differential Standing Status: Future Standing Expiration Date: 02/11/2024 Type and Screen, 30 day Standing Status: Future Standing Expiration Date: 02/11/2024 Confirm Blood Type Order Comments: Draw separate from TSCR Standing Status: Future Standing Expiration Date: 02/11/2024 Order Specific Question: Did Blood Bank direct you to place this order: Answer: No - Presurgical Workflow mupirocin (BACTROBAN) 2 % ointment Sig: two times a day for 5 days. Apply 0.5 inch with cotton swab (Q-tip) to each nostril in the morning and evening for 5 days prior to and including day of surgery. Dispense: 22 g Refill: 0 ECG (IN OFFICE) REASON FOR VISIT: Mariajose Marcelino is a 67 year old female who is scheduled for Procedure(s): REVISION JOINT TOTAL KNEE FEMORAL AND ENTIRE TIBIAL COMPONENT (Right) at the request of Dr. Linda Garcia for consultation. My final recommendation will be communicated back to the requesting physician by way of shared medical record or letter. Subjective The patient has the following: ACTIVE PROBLEM LIST Primary Osteoarthritis of Left Knee Essential Hypertension Acquired Hypothyroidism Other Hyperlipidemia Mild Intermittent Asthma Without Complication Status Post Total Right Knee Replacement COVID-19 Immunization Status Overdue - Covid-19 Vaccine () Overdue since 03/27/2023 06/17/2021 Imm Admin: COVID-19 original vaccine, age 12+ yr, monovalent (PFIZER- BIONTECH - PURPLE TOP) 10/05/2020 Imm Admin: COVID-19 original vaccine, age 12+ yr, monovalent (PFIZER- BIONTECH - PURPLE TOP) 09/18/2020 Imm Admin: COVID-19 original vaccine, age 12+ yr, monovalent (PFIZER- BIONTECH - PURPLE TOP) Only the first 3 history entries have been loaded, but more history exists. CHIEF COMPLAINT: Pre-operative evaluation HPI: Patient is a 67 year old year old female presents with right knee pain. Had first joint replacement surgery in 2019 and developed an infection requiring IV antibiotics. Had to have temporary knee replacement. Endorses discomfort. REVIEW OF SYSTEMS: General: Negative for: unintentional weight change and fever. Neurological: Negative for: headaches, multiple sclerosis, Parkinson's disease, peripheral neuropathy, seizures, TIA and strokes. Respiratory: Positive for: asthma. Negative for: COPD, current cough, dyspnea, home oxygen, pneumonia within 6 weeks, URI < 2 weeksand obstructive sleep apnea. Cardiovascular: Positive for: hyperlipidemia and hypertension Negative for: AICD/PPM, arrhythmia, atrial fibrillation, CAD, chest pain, CHF, DVT/PE, recent RI, murmur/valvular heart disease and open heart surgery. GI: Negative for: abdominal pain, GERD, GI bleed <30 days, hepatitis, liver disease, nausea and vomiting. : Negative for: dysuria, frequent urination, hematuria, urgency and urinary tract infection. TOP EXECUTIVE: Negative for: vaginal bleeding. Endocrine: Positive for: hypothyroidism. Negative for: diabetes mellitus and hyperthyroidism. Hematology: Negative for: anemia, bruises/bleeds easily, factor V Leiden, hemophilia, thrombocytopenia, von Willebrand disease and chronic anti-coagulation/platelet meds. Oncology: No history of CA metastasis, chemo within 30 days, or radiotherapy within 90 days. No history of oncological symptoms or problems. Psych: Negative for: anxiety and depression. Musculoskeletal: Positive for: joint pain. Negative for: back pain and swelling. Skin: Negative for lesions, rash and itching. PAST MEDICAL HISTORY Diagnosis Date Asthma due to seasonal allergies Hyperlipidemia Hypertension Hypothyroidism PAST SURGICAL HISTORY Procedure Laterality Date DELIVERY ONLY 10/1978 , low transverse DELIVERY ONLY 05/1980 , low transverse DELIVERY ONLY 11/1982 , low transverse DELIVERY ONLY 11/1984 , low transverse LAPAROSCOPY SURG CHOLECYSTECTOMY 2005 Cholecystectomy, lap PAST SURGICAL HISTORY OF 1998 Partial hysterectomy PAST SURGICAL HISTORY OF Right right knee joint, revision History reviewed. No pertinent family history. Social History Tobacco Use Smoking status: Never Smokeless tobacco: Never Substance Use Topics Alcohol use: No Drug use: No Prior to Admission medications as of 11/12/23 0909 Medication Sig Last Dose Taking mupirocin (BACTROBAN) 2 % ointment two times a day for 5 days. Apply 0.5 inch with cotton swab (Q-tip) to each nostril in the morning and evening for 5 days prior to and including day of surgery. Taking Yes clindamycin (CLEOCIN) 300 mg capsule Take two capsules by mouth one hour prior to dental appointment. Taking Yes cholecalciferol, vitamin D3, (VITAMIN D3 ORAL) Take 1 capsule by mouth once daily. Taking Yes Lactobacillus acidophilus (PROBIOTIC ORAL) Take 1 capsule by mouth once daily. Taking Yes albuterol sulfate (PROAIR HFA INHALATION) Inhale 1 Puff as instructed every 4 hours as needed (wheezing sob). Taking Yes rosuvastatin (CRESTOR) 40 mg tablet Take 40 mg by mouth once daily. Taking Yes estradiol (ESTRACE) 0.01 % (0.1 mg/gram) vaginal cream Use 1 g vaginally twice a week. Taking Yes levothyroxine (SYNTHROID) 50 mcg tablet Take 1 tablet by mouth daily before breakfast. Taking Yes montelukast (SINGULAIR) 10 mg tablet Take 1 tablet by mouth daily at bedtime. Taking Yes therapeutic multivitamin (THERA VITAMIN) tablet Take 1 tablet by mouth once daily. Taking Yes Medication Comments documented by Mercedes Adler RN on 06/24/2022 at 1408. 11/29/[address] Grimaldo honor copat stop date of 06/26/22. 05/27/22- per orders of Dr Chadwick Grimaldo: Hold vancomycin the evening of 05/27/22; Rosita Zaragoza R.N 05/23: Per Dr. Espinosa double to duration time of the infusion, pt. to call him back if any furtherchest discomfort. 05/20-per orders of Dr. Ashwin Grimaldo; Increase Vanco dose to 1.25g IV every 12 hours thru 06/26/22 sever interactions no longer taking toradol RB 05/18/2022 ALLERGIES Allergen Reactions Amoxicillin Rash Ceclor [Cefaclor] Mental Status Change, Rash Objective PHYSICAL EXAM: General: alert and oriented and healthy appearance. Pertinent negatives noted - not distressed. Skin: normal color, no rash or lesions. HEENT: pupils equal round and pupils reactive to light. Cardiovascular: regular rate and rhythm, normal S1 and S2, no rub, murmurs, or gallop. Respiratory: normal breath sounds, no wheezes or crackles. No chest wall deformity or tenderness. Abdomen: bowel sounds present and soft. Pertinent negatives noted - not tender. Extremities: no deformity, no edema or tenderness, no joint swelling or clubbing. Neurological: normal cognition and motor skills. Gait normal. No weakness or sensory deficit. PAIN ASSESSMENT: VITALS: BP 143/68 Pulse 73 Temp 98.1 Resp 20 Ht 5' 3.386 (1.61m) Wt 150 lb 5.7 oz (68.2kg) SpO2 100% BMI 26.31 kg/(m^2). Diagnostic tests reviewed for today's visit: Lab Value Units Date High Low HB 14.0 g/dL 09/04/2023 15.5 11.5 HCT 41.5 % 09/04/2023 46.0 36.0 WBC 7.20 k/uL 09/04/2023 11.00 3.70 PLT 262 k/uL 09/04/2023 400 150 NA No results within date range. K No results within date range. GLUC No results within date range. BUN No results within date range. CREAT No results within date range. PTSEC No results within date range. INR No results within date range. APTT No results within date range. ALT No results within date range. AST No results within date range. TBILI No results within date range. TSH No results within date range. Lab Value Units Date High Low HCGQT No results within date range. UHCG No results within date range. HCG, BODY* No results within date range. Lab Value Units Date High Low ABORHD No results within date range. ABSCREEN No results within date range. No results found for: HBA1C No results found for this or any previous visit (from the past 8760 hour(s)). No results found for this or any previous visit (from the past 48650 hour(s)). Instructions Given to Patient: Instructions located in the after visit summary. Patient given verbal and written preop instructions and voices comprehension and compliance. SIGNATURE: KOMAL Rangel PATIENT NAME: Mariajose Marcelino DATE: November 12, 2023 TIME: 9:00 AM PAGER/CONTACT #: documented in this encounterF[facility] Hospital03-01-2024 History of Present illness Narrative* Vidal Schmitt PA-Khloe - 09/25/2023 9:56 AM EST Images from the original note were not included. [id number] Ms. Marcelino was last seen for painful right total knee three weeks. had the following plan implemented la work, bone scan. She presents today for Established Patient, Knee Replacement, Knee Pain, and Follow Up of the RightKnee. Review of Systems All other systems reviewed and are negative. History: PAIN EVALUATION 09/23/20235 09/25/2023 0916 Pain Level: 4 4 Pain Location: Knee-Right Knee-Right Description: Radiating Radiating;Sharp Duration Amount of Time: 5 -- ongoing Duration Units: Minutes -- Frequency: Intermittent Intermittent Intervention/Comfort measure: Reposition;Relaxation Relaxation;Reposition Comments: Pain when up walking after a while -- The patient denies swelling, warmth, discharge, drainage, fevers, chills, sweats. She reports compliance with therapy, sling/splint/ambulatory device/dressing/wound care, and the use of medications. Previous treatments have included surgery, xray, OTC medicaiton, ice/heat, home rehabilitation, andbone scan. She reports no change in past medical & surgical history, medications, allergies, social history, family history and review of systems since last visit, with the exception of the following: Pain is increasing and at times the knee feels unstable or wobbily. Radiographs: Bone scan completed on 09/16/23 shows uptake along tibia and femoral surfaces consistent with component loosening. Physical Examination: Inspection Skin Positive: swelling. Incision Positive: Well healed anterior midline incision. Atrophy There is mild quadriceps atrophy. Range of Motion Knee 0-0-110 degrees Patella Decreased patellar mobility Palpation Effusion 2+ effusion Tenderness medial joint line, lateral femoral condyle, medial proximal tibia, and lateral proximal tibia Crepitance Positive palpable patellofemoral crepitance Meniscus Negative medial and lateral Agustin's test Stability Slight varus/ valgus play Procedure: Not applicable A/P Painful total knee, aseptic loosening Plan for right knee revision, will need triathlon revision knee system with stems, cones, augments available Will re-aspirate the knee prior to surgery Follow units with Dr. Garcia prior to surgery for questions/ sign op-permit Vidal Schmitt PA-C documented [facility]24 NoteHNO ID: [id number] Author: MARK AYALA RT(R) Service: ? Author Type: Technologist Type: Progress Notes Filed: 09/16/2023 08:35 Note Text: RADIOLOGY SERVICE PROGRESS NOTE SERVICE DATE: 09/16/2023 SERVICE TIME: 8:34 AM PATIENT IDENTITY VERIFICATION COMPLETED USING TWO (2) STANDARD IDENTIFIERS: Name and Date of confirmed by patient verbally FALL SCREENING: Has the patient had 2 falls in the last year or 1 fall with injury or currently using an Ambulatory Assistive Device (Walker, Cane, Wheelchair, Crutches, etc.)? No PATIENT GENDER DATA: .female : No ALLERGIES: NA MEDICATIONS REVIEWED: Not applicable PATIENT RELEVANT IMPLANT DATA REVIEWED: Not Applicable PATIENT PRESENTS WITH AN IMPLANTABLE OR ATTACHED LABORER CARPENTRY DOCK: No CREATININE: Creatinine Date Value Ref Range Status 06/23/2022 0.60 0.58 - 0.96 mg/dL Final 06/16/2022 0.61 0.58 - 0.96 mg/dL Final 06/09/2022 0.59 0.51 - 0.95 mg/dL Final Comment: Patients receiving either N-Acetylcysteine (NAC) or Metamizole prior to venipuncture, may have falsely depressed results. Estimated Glomerular Filtration Rate Date Value Ref Range Status 06/23/2022 98 >=60 mL/min/1.73m? Final Comment: Estimated Glomerular Filtration Rate (eGFR) is calculated using the 2020 CKD-EPI creatinine equation. This equation utilizes serum creatinine, sex, and age as parameters. The creatinine assay has traceable calibration to isotope dilution-mass spectrometry. Refer to KDIGO guidelines for clinical interpretation. In patients with unstable renal function, e.g. those with acute kidney injury, the eGFR may not accurately reflect actual GFR. eGFR- Date Value Ref Range Status 01/20/2019 >60 Final P.O.C.T. RESULTS: N/A September 16, [address] PERFORMED: No IV SITE: Ambulatory: NM only - direct IV injection in the Right antecubital site POST EXAM PIV STATUS: Discontinued PROCEDURE TYPE: NM INJECT: 3 PHASE BONE SCAN. 24.0 mCi Tc99m MDP. No other medications given.. ADMINISTRATION TIME: 0810 PATIENT DISCHARGED TO: Ambulatory patient, left [place] department area. A Diagnostic radioactive procedure has taken place, with no further precautions necessary other than routine body substance precautions. More information regarding radiation safety can be found using this link: [email or web address]%[email or web address] SIGNATURE: RT Bianca([place]) PATIENT NAME: Mariajose Marcelino DATE: September 16, 2023 TIME: 8:34 AM PAGER/CONTACT #:[facility]02-21-2024 History of Present illness Narrative* Mark Ayala RT(R) - 09/16/2023 8:34 AM EST RADIOLOGY SERVICE PROGRESS NOTE SERVICE DATE: 09/16/2023 SERVICE TIME: 8:34 AM PATIENT IDENTITY VERIFICATION COMPLETED USING TWO (2) STANDARD IDENTIFIERS: Name and Date of confirmed by patient verbally FALL SCREENING: Has the patient had 2 falls in the last year or 1 fall with injury or currently using an Ambulatory Assistive Device (Walker, Cane, Wheelchair, Crutches, etc.)? No PATIENT GENDER DATA: .female : No ALLERGIES: NA MEDICATIONS REVIEWED: Not applicable PATIENT RELEVANT IMPLANT DATA REVIEWED: Not Applicable PATIENT PRESENTS WITH AN IMPLANTABLE OR ATTACHED LABORER CARPENTRY DOCK: No CREATININE: Creatinine Date Value Ref Range Status 06/23/2022 0.60 0.58 - 0.96 mg/dL Final 06/16/2022 0.61 0.58 - 0.96 mg/dL Final 06/09/2022 0.59 0.51 - 0.95 mg/dL Final Comment: Patients receiving either N-Acetylcysteine (NAC) or Metamizole prior to venipuncture, may have falsely depressed results. Estimated Glomerular Filtration Rate Date Value Ref Range Status 06/23/2022 98 >=60 mL/min/1.73m Final Comment: Estimated Glomerular Filtration Rate (eGFR) is calculated using the 2020 CKD-EPI creatinine equation. This equation utilizes serum creatinine, sex, and age as parameters. The creatinine assay has traceable calibration to isotope dilution- mass spectrometry. Refer to KDIGO guidelines for clinical interpretation. In patients with unstable renal function, e.g. those with acute kidney injury, the eGFRmay not accurately reflect actual GFR. eGFR- Date Value Ref Range Status 01/20/2019 >60 Final P.O.C.T. RESULTS: N/A September 16, [address] PERFORMED: No IV SITE: Ambulatory: NM only - direct IV injection in the Right antecubital site POST EXAM PIV STATUS: Discontinued PROCEDURE TYPE: [place] INJECT: 3 PHASE BONE SCAN. 24.0 mCi Tc99m MDP. No other medications given.. ADMINISTRATION TIME: 0810 PATIENT DISCHARGED TO: Ambulatory patient, left [place] department area. A Diagnostic radioactive procedure has taken place, with no further precautions necessary other than routine body substance precautions. More information regarding radiation safety can be found usingthis link: [email or web address]%20Nuclear%[email or web address] SIGNATURE: RT Bianca(R) PATIENT NAME: Mariajose Marcelino DATE: September 16, 2023 TIME: 8:34 AM PAGER/CONTACT #: documented in this encounterFlower Hospital02-09-2024 History of Present illness Narrative* Vidal Schmitt PA-C - 09/04/2023 11:51 AM EST Images from the original note were not included. BVLDUK-THBCDT-DMCELL-UP Ms. Marcelino was last seen for right knee follow up six months ago. had the following plan implemented at the time Mariajose was doing well and released to activity as tolerated. She contacted us last week with increased soreness of the knee without a history of trauma. Mariajose is S/P revision for infected knee back on 05/15/22. She has done well since the surgery until now. Current pain is rated 2/10 and is worse when rising from a seated position after rest. She presents today for Established Patient, Knee Pain, and Knee Replacement of the Right Knee. Review of Systems All other systems reviewed and are negative. History: PAIN EVALUATION 08/31/20238 09/04/2023 1119 Pain Level: 2 2 Pain Location: Knee-Right Knee-Right Description: Sharp;Stiffness Sharp;Stiffness Duration Amount of Time: 5 -- 1.5-2 weeks Duration Units: Minutes -- Frequency: Intermittent Intermittent Intervention/Comfort measure: Reposition;Cold Reposition;Cold Comments: Usually when standing up, walking or stairs -- The patient denies swelling, warmth, discharge, drainage, fevers, chills, sweats. She reports compliance with therapy, sling/splint/ambulatory device/dressing/wound care, and the use of medications. Previous treatments have included surgery-05/15/22, tylenol and ice/heat. She reports no change in past medical & surgical history, medications, allergies, social history, family history and review of systems since last visit, with the exception of the following: None Radiographs: Radiographs today revealed patellar fracture, suspect from AVN of the patella, a well placed and well fixed femoral component an all poly tibia in good position with questionable loosening. Otherwise, osseous and soft tissue structures within normal limits. Physical Examination: Inspection Skin Positive: swelling. Incision Positive: Well healed anterior midline incision. Atrophy No evidence of muscular atrophy. Range of Motion Knee 0-0-120 degrees Patella Decreased patellar mobility Palpation Effusion 1+ effusion Tenderness lateral femoral condyle, pes bursa, and lateral patellar facet Crepitance Positive palpable patellofemoral crepitance Meniscus Stability Negative varus/valgus instability, negative Kavita's, negative posterior drawer and negative Dial test Procedure: Blood draw A/P Painful right total knee Patellar fracture right knee Possible loosening tibial component We will check, labs today SED rate CRP CBC Bone scan has been ordered Likely will need surgery in the future but we need to know status of the knee from an infection standpoint first. If no infection revision may be limited to patella +/- tibial component Mariajose will follow up in 3-4 weeks after the bone scan is completed or earlier if symptoms change, charan Schmitt PA-C documented in this encounterFlower Hospital02-09-2024 History of Present illness Narrative* Guadalupe Aponte Tech - 09/04/2023 10:50 AM EST Radiology Service Progress Note PATIENT NAME: Mariajose Marcelino DATE OF SERVICE: September 04, 2023 TIME: 11:16 AM PATIENT IDENTITY VERIFICATION COMPLETED USING TWO (2) IDENTIFIERS: Name and Date of confirmedby patient verbally. FALL SCREENING: Has the patient had 2 falls in the last year or 1 fall with injury or currently using an Ambulatory Assistive Device (Walker, Cane, Wheelchair, Crutches, etc.)? No PATIENT GENDER DATA: Female. status: : No status: NO. 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 Bearing PERIPHERAL IV DATA: Not applicable SIGNED BY: Rashad Guaman September 04, 2023 11:16 AM documented in this encounterFlower Hospital08-14-2023 History of Present illness Narrative* Vidal Schmitt PA-C - 03/09/2023 12:01 PM EDT Images from the original note were not included. DEPARTMENT OF ORTHOPAEDICS CC: Follow-up visit after knee replacement HPI: Ms. Marcelino is here today for her 1 year clinical follow up status post right revision total knee replacement for infection. Since her last visit Ms. Marcelino conveys the interval has been complicated by noticing a bump on the medial patella. Mariajose states the knee feels good there is no pain associated with the bump but is concerned and wanted the area checked. The knee does not limit her activity at all. Pleased with outcome: Yes Pain? 0 on a scale of 1-10 Ambulatory support: none Distance able to walk:> 30 minutes Stairs Normal sequence Requires a handrail: No Able to kneel: uncomfortable to kneel so does not Able to arise from chair: Yes with ease Back issues: No Pain Medication: none REVIEW OF SYSTEMS: No new medical issues PAST MEDICAL HISTORY Diagnosis Date Asthma due to seasonal allergies Hyperlipidemia Hypertension Hypothyroidism PAST SURGICAL HISTORY Procedure Laterality Date DELIVERY ONLY 10/1978 , low transverse DELIVERY ONLY 05/1980 , low transverse DELIVERY ONLY 11/1982 , low transverse DELIVERY ONLY 11/1984 , low transverse LAPAROSCOPY SURG CHOLECYSTECTOMY 2005 Cholecystectomy, lap PAST SURGICAL HISTORY OF 1998 Partial hysterectomy Current Outpatient Medications Medication Sig Dispense Refill cholecalciferol, vitamin D3, (VITAMIN D3 ORAL) Take 1 capsule by mouth once daily. Lactobacillus acidophilus (PROBIOTIC ORAL) Take 1 capsule by mouth once daily. albuterol sulfate (PROAIR HFA INHALATION) Inhale 1 Puff as instructed every 4 hours as needed (wheezing sob). rosuvastatin (CRESTOR) 40 mg tablet Take 40 mg by mouth once daily. estradiol (ESTRACE) 0.01 % (0.1 mg/gram) vaginal cream Use 1 g vaginally twice a week. levothyroxine (SYNTHROID) 50 mcg tablet Take 1 tablet by mouth daily before breakfast. montelukast (SINGULAIR) 10 mg tablet Take 1 tablet by mouth daily at bedtime. therapeutic multivitamin (THERA VITAMIN) tablet Take 1 tablet by mouth once daily. triamcinolone (KENALOG IN ORABASE) 0.1 % paste APPLY A THIN COAT TO THE AFFECTED AREA 4-6 TIMES A DAY No current facility-administered medications for this visit. ALLERGIES Allergen Reactions Amoxicillin Rash Ceclor [Cefaclor] Mental Status Change, Rash No family history on file. Social History Tobacco Use Smoking status: Never Smokeless tobacco: Never Substance Use Topics Alcohol use: No Drug use: No EXAMINATION: GENERAL:normal body habitus and no apparent distress RESP:Unlabored with no shortness of breath CV: No extremity swelling, varices, edema, pallor, erythema Ms. Marcelino has no difficulty arising out of a chair and has no difficulty ambulating in the exam room. her gait was normal. LOWER EXTREMITIES: On the exam table seated and supine, hip range of motion bilaterally was symmetric, unrestricted and non-painful. No trochanteric pain to palpation. Straight leg raise and femoral nerve stretch testswere negative for acute radicular symptoms to suggest spine problems. Examination of the right knee reveals Multiple previous incisions and has no erythema, warmth or tenderness. Range of motion is 0 degrees in extension and 120 degrees of flexion actively. Mild varus-valgus instability with patella tracking midline. No patellofemoral crepitus. Palpable lump on medial aspect of the patella, non-tender to touch, no erythema. Both lower extremities were neurovascularly intact, has no evidence of cellulitis, and has no distal swelling. X-RAYS: right Triathlon revision knee with all poly tibia, showing good component sizing, position,and alignment. The patella tracks midline. Radiographic review has no findings of loosening, has nofindings of wear, and does show a medial patellar osteophyte that corresponds to the bump, no other complicating process. ASSESSMENT: S/P right total knee revision, with osteophyte on patella PLAN: Continue with activities as tolerated Follow up will be in 14 months. If there are any questions or problems, patient instructed to call the office. Rx Drug Management: No prescription given at today's appointment. Vidal Schmitt PA-C documented in this encounterFlower Hospital08-14-2023 History of Present illness Narrative* Guadalupe Aponte Tech - 03/09/2023 11:00 AM EDT Radiology Service Progress Note PATIENT NAME: Mariajose Marcelino DATE OF SERVICE: March 09, 2023 TIME: 11:20 AM PATIENT IDENTITY VERIFICATION COMPLETED USING TWO (2) IDENTIFIERS: Name and Date of confirmedby patient verbally. FALL SCREENING: Has the patient had 2 falls in the last year or 1 fall with injury or currently using an Ambulatory Assistive Device (Walker, Cane, Wheelchair, Crutches, etc.)? No PATIENT GENDER DATA: Female. status: : No status: NO. PATIENT RELEVANT IMPLANT DATA REVIEWED: Not Applicable RADIOLOGY DEPARTMENT: General X-ray: Exam(s) Completed: Lower Extremity X- Ray(s): Knee, AP / Lat / Merchant Right and Wt. Bearing PERIPHERAL IV DATA: Not applicable SIGNED BY: Rashad Guaman March 09, 2023 11:20 AM documented in this encounterFlower Hospital06-05-2023 History of Present illness Narrative* Yanira Garcia MD - 12/29/2022 9:[address] GARCIA- POST-OP KNEE Post-Op F/U Office Visit Mariajose Marcelino presents today for a 7 months status post revision Right TKA. Post-operative recoverywas uneventful. Patient's rating of condition: improving Comments: patient reports significant improvement of pain compaired to preop knee Does the Pt. still experience pain? None Functional difficulties: None Physical Therapy: Completed course of therapy Pain Medication: None Ambulating without assistance. Medications and Allergies reviewed and verified. EXAM: GEN: A&O x3, NAD SKIN:Appropriate postop appearance Incision intact Incision well healed RightKnee: ROM: Flexion/Extension:0 degrees to 115 degrees Pain with ROM:No Mal-alignment: No Effusion: None Non Tender to palpation of the medial and lateral joint line(s). Stability:Anterior/Posterior- Yes, stable and Varus/Valgus- Yes, stable Quad strength: normal HIP: range of motion no loss ROM NV: intact and Jeramy's negative IMAGING: Xrays: No x-rays today IMPRESSION/PLAN: 66 year old female s/p revision Right TKA No complaints or limitations. At normal post-operative stage of recovery , patient We discussed options would like to continue with current knee implants . If it were to become painful, consideration forsecond stage reimplantation could be considered Plan : Cont. WBAT Continue exercises and total knee precautions F/u 5 months for repeat clinical /radiographic evaluation Yanira Garcia MD Electronic Signature documented in this encounterFlower Hospital06-04-2023 History of Present illness Narrative* Casey Garcia MD - 12/28/2022 2:33 PM EDT Mariajose Marcelino is a 67 year old female who presents with Swollen Neck (Below left ear ryan of, pts that she uses ear drops during occurrence, appears ear, sensitive to the touch, no drainage at ear site.) Presents with swollen tender lump on the left side of her neck since yesterday. She been using eardrops for earwax removal but has not helped The history is provided by the patient. No automotive parts interpreter was used. PAST MEDICAL HISTORY Diagnosis Date Asthma due to seasonal allergies Hyperlipidemia Hypertension Hypothyroidism ACTIVE PROBLEM LIST Primary Osteoarthritis of Left Knee Essential Hypertension Acquired Hypothyroidism Other Hyperlipidemia Mild Intermittent Asthma Without Complication Status Post Total Right Knee Replacement Current Outpatient Medications Medication Sig Dispense Refill triamcinolone (KENALOG IN ORABASE) 0.1 % paste APPLY A THIN COAT TO THE AFFECTED AREA 4-6 TIMES A DAY cholecalciferol, vitamin D3, (VITAMIN D3 ORAL) Take 1 capsule by mouth once daily. Lactobacillus acidophilus (PROBIOTIC ORAL) Take 1 capsule by mouth once daily. albuterol sulfate (PROAIR HFA INHALATION) Inhale 1 Puff as instructed every 4 hours as needed (wheezing sob). rosuvastatin (CRESTOR) 40 mg tablet Take 40 mg by mouth once daily. estradiol (ESTRACE) 0.01 % (0.1 mg/gram) vaginal cream Use 1 g vaginally twice a week. levothyroxine (SYNTHROID) 50 mcg tablet Take 1 tablet by mouth daily before breakfast. montelukast (SINGULAIR) 10 mg tablet Take 1 tablet by mouth daily at bedtime. therapeutic multivitamin (THERA VITAMIN) tablet Take 1 tablet by mouth once daily. clindamycin (CLEOCIN) 300 mg capsule Take 1 capsule by mouth three times daily for 7 days. 21 capsule 0 No current facility-administered medications for this visit. Social History Tobacco Use Smoking status: Never Smokeless tobacco: Never Substance Use Topics Alcohol use: No Drug use: No Alcohol Use: No Tobacco Use: Never History reviewed. No pertinent family history. Review of Systems Constitutional: Negative for chills, diaphoresis, fever and malaise/fatigue. HENT: Negative for congestion, ear pain, hearing loss, sinus pain and sore throat. Respiratory: Negative for cough, hemoptysis, sputum production, shortness of breath and wheezing. Cardiovascular: Negative for chest pain and palpitations. Musculoskeletal: Positive for neck pain (: Lymph node on left side of neck). BP 163/72 Pulse 69 Temp 98.4 Resp 20 Wt 144 lb 3.2 oz (65.4kg) SpO2 96% Physical Exam Vitals and nursing note reviewed. Constitutional: Appearance: Normal appearance. She is not ill-appearing. HENT: Right Ear: Tympanic membrane normal. Left Ear: Tympanic membrane normal. Ears: Comments: No sinus tenderness Nose: Nose normal. No congestion or rhinorrhea. Mouth/Throat: Mouth: Mucous membranes are moist. Pharynx: Oropharynx is clear. No oropharyngeal exudate or posterior oropharyngeal erythema. Eyes: Extraocular Movements: Extraocular movements intact. Conjunctiva/sclera: Conjunctivae normal. Pupils: Pupils are equal, round, and reactive to light. Cardiovascular: Rate and Rhythm: Regular rhythm. Pulmonary: Effort: Pulmonary effort is normal. Breath sounds: Normal breath sounds. Lymphadenopathy: Cervical: Cervical adenopathy: Large left submandibular lymphadenopathy that is tender. Skin: General: Skin is warm and dry. Neurological: General: No focal deficit present. Mental Status: She is alert and oriented to person, place, and time. ASSESSMENT/PLAN: 1. Submandibular lymphadenitis - ICD9: 289.3, ICD10: I88.9 Warm compress NSAIDs or acetaminophen Probiotics Complete antibiotics - CLINDAMYCIN HCL 300 MG CAPSULE ice daily for 7 days Casey Garcia MD documented in this encounterFlower Hospital06-04-2023 Instructions* Patient Instructions* Casey Garcia MD - 12/28/2022 2:30 PM EDT Warm compress NSAIDs or acetaminophen Probiotics Complete antibiotics documented in this encounterFlower Hospital12-02-2022 Miscellaneous Notes* [facility] Agency DC - Divya Solomon RN - 06/27/2022 7:55 AM EST SITUATION: Long-Term agency discharge visit completed today. only patient also present during today's visit. patient reports the following: Allergies--reviewed Medications--reviewed current medications Falls--None BACKGROUND: Reason for Home Care: Infection and inflammatory reaction due to internal right knee prosthesis ASSESSMENT: SN greeted at door by patient no DME and demonstrates stable gait. Patient appears in no acute distress. Patient/CG concerns verbalized today: None Vitals (see flow sheet for details): stable SN findings today: Patient completed IV antibiotics. 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 Patient c/o slight pain inright knee that is managed with PRN Tylenol. Patient requested discharge from home care r/t completion of IV antibiotics. SN provided and reviewed discharge instructions. See intervention summary for education details and any skills performed. Specific SN discharge instructions: Continue exercise program as instructed by therapy and report any questions/concerns/complications to MD. Patient encouraged to take all medication as ordered, eat a well-balanced diet and follow up with all physician appointments. NOMNC: patient requested discharge today Discharged due to Goals met. Patient discharged from Home Care to: self-care RECOMMENDATION: Additional follow ups recommended: None Patient to follow up with Dr. Garcia for additional medical questions/concerns. documented in this encounterFlower Hospital11-28-2022 Miscellaneous Notes* SN Routine IV care and labs - Divya Solomon RN - 06/23/2022 8:11 AM EST SITUATION: Long-Term routine IV for IV care and labs visit completed today. Patient only present during today's visit. patient reports the following: Allergies--reviewed Medications--reviewed current medications Falls--None BACKGROUND: Reason for Home Care: Infection and inflammatory reaction due to internal right knee prosthesis ASSESSMENT: SN greeted at door by Patient. Patient ambulates without use of assistive equipment- steady gait. Patient appears in no acute distress. Patient/CG concerns verbalized today: None Vitals (see flow sheet for details): stable SN findings today: SN change dressing to [facility] PICC and obtained lab work. Labs delivered to [facility]. Patient independent with administration of IV antibiotics. Patient has f/u with ID later this week. Right knee incision CLINICAL QUALITY ANALYST without any s/s of infection noted. Patient manages right knee pain with PRN Tylenol. IV care completed with no issues or concerns noted or reported. See intervention summary for education details and skills performed. Plan of care, progress towards goals, and visit frequency reviewed with patient and caregiver. Patient demonstrated a need for further skilled SN services for chronic disease management & education, medication education, wound/skin care, labs and safety. Current Discharge plan: self-care and family support RECOMMENDATION: Next visit to focus on (be specific): D/C and Pull PICC [facility] Miscellaneous Notes* SN PRN IV - Silvia Isaac RN - 06/21/2022 11:26 AM EST SITUATION: Long-Term PRN visit completed today. only patient present during today's visit. patient reports the following: Allergies--reviewed Medications--reviewed current medications Falls--None BACKGROUND: Reason for Home Care: post R knee infection, on home infusion therapy Reason for PRN IV Visit: Infusion management concern ASSESSMENT: SN greeted at door by patient no DME and demonstrates stable gait. Patient appears in no acute distress. Patient/CG concerns verbalized today: pt verbalizes that her IV has been sluggish infusing off and on this week. She feels that the flush has been stiff. Vitals (see flow sheet for details): stable SN findings today: Pt is currently infusing Vancomycin. She has been infusing the Vanco over 3 hours and she has not had any discomfort, itching or side effects at this infusion rate. She states thatlast night's infusion she could not get any more than 3 1/2 drops every 15 seconds and her goal is to be at 5 drops every 15 seconds. She states that this morning's infusion has been running on time. Pt is almost finished with this am's dose. SN stopped the dose and flushed PICC without problem, brisk blood return noted. Reviewed flush procedure with pt and she reports that she is not flushing as vigorously as SN did. Pt was able to return demonstrate a vigorous, pulsating flush which should take care of the issue. See intervention summary for education details and skills performed. RECOMMENDATION: Next visit to focus on (be specific): PICC care and labs. [facility] this encounterF[facility]11-25-2022 Miscellaneous Notes* CARE COORDINATION - Rosita Zaragoza RN - 06/20/2022 8:53 PM EST S- [place]ug[place] Picc Line B- Pt has had Picc Line for 5 weeks. new onset today A- pt gave 3 coughs, bend forward and raise arm while turn her wrist, Flush gave resistance R-sent to scheduling for SN visit documented in this encounterFlower [facility]11-21-2022 Miscellaneous Notes* SN Routine IV care and labs - Divya Solomon RN - 06/16/2022 8:22 AM EST SITUATION: Long-Term routine IV for IV care and labs visit completed today. Patient only present during today's visit. patient reports the following: Allergies--reviewed Medications--reviewed current medications Falls--None BACKGROUND: Reason for Home Care: Infection and inflammatory reaction due to internal right knee prosthesis ASSESSMENT: SN greeted at door by Patient. Patient ambulates without use of assistive equipment- steady gait. Patient appears in no acute distress. Patient/CG concerns verbalized today: Generalized Itching- MD aware. Vitals (see flow sheet for details): stable SN findings today: SN change dressing to [facility] PICC and obtained lab work. Labs delivered to [facility]. SN added extension tubing to PICC line- patient administered IV antibiotic with SN supervision. Patient did not require instruction/education at all. Patient will continue to administer independently Right knee incision CLINICAL QUALITY ANALYST without any s/s of infection noted. Patient manages right knee pain with PRN Tylenol. IV care completed with no issues or concerns noted or reported. See intervention summary for education details and skills performed. Plan of care, progress towards goals, and visit frequency reviewed with patient and caregiver. Patient demonstrated a need for further skilled SN services for chronic disease management & education, medication education, wound/skin care, labs and safety. Current Discharge plan: self-care and family support RECOMMENDATION: Next visit to focus on (be specific): CP check, weekly PICC care, lab work documented in this encounterFlower [facility]11-17-2022 Miscellaneous Notes* SN PRN IV - Divya Solomon RN - 06/12/2022 7:50 AM EST SITUATION: Long-Term PRN IV visit. Only patient present during today's visit. patient and caregiver reports the following: Allergies--reviewed Medications--reviewed current medications Falls--None BACKGROUND: Reason for Home Care: Infection and inflammatory reaction due to internal right knee prosthesis Reason for PRN Visit- Lab work ASSESSMENT: SN greeted at door by Patient. Patient ambulates without use of assistive equipment. Steady gait. Patient appears in no acute distress. Patient/CG concerns verbalized today: None Vitals (see flow sheet for details): stable SN findings today: Patient has RUE SL PICC- dressing dry and intact. SN obtained lab work and delivered to [facility]. Patient independent with administration of IV antibiotic. Right knee incision CLIFFORD without any s/s of infection noted. Patient manages right knee pain with PRN Tylenol. IV care completed with no issues or concerns noted or reported. See intervention summary for education details and skills performed. Plan of care, progress towards goals, and visit frequency reviewed with patient and caregiver. Patient demonstrated a need for further skilled SN services for chronic disease management & education, medication education, wound/skin care, labs and safety. Current Discharge plan: self-care and family support RECOMMENDATION: Next visit to focus on (be specific): CP check, weekly PICC care, lab work documented in this encounterF[facility]11-15-2022 Miscellaneous Notes* CARE COORDINATION - Guadalupe Guadalupe RN - 06/10/2022 2:21 PM EST Mariajose Marcelino Per Moraima Arndt RN with Dr Chadwick Grimaldo: Increase vancomycin to 1gm IV Q12H until 06/26/22 Infuse over 3 hours via [facility] to mix as minibag in 250mL D5W Homecare nurse to draw CBC/diff on 06/12/22 documented in this encounterFlower Hospital11-14-2022 Miscellaneous Notes* SN Routine IV - Concepcion Frederick RN - 06/09/2022 7:57 AM EST SITUATION: Long-Term routine IV visit completed today. only patient also present during today's visit. patient reports the following: Allergies--reviewed Medications--reviewed current medications Falls--None BACKGROUND: Reason for Home Care: Infection and inflammatory reaction due to internal right knee prosthesis, initial encounter Encounter for adjustment and management of vascular access device ASSESSMENT: SN greeted at door by patient no DME and demonstrates stable gait. Patient appears in no acute distress. During visit, patient demonstrated independence with IV infusion and requires no further visits forIV infusion instructions. Patient/CG concerns verbalized today: none Vitals (see flow sheet for details): stable SN findings today: A&Ox4. Nonlabored breathing on room air; lungs clear throughout. Heart rate regular; murmur noted. BSPx4. Right knee edema; incision CLINICAL QUALITY ANALYST, well approximated with steri strips intact. SN completed RU PICC care; labs drawn and taken to [facility].. See intervention summary for education details and skills performed. Plan of care, progress towards goals, and visit frequency reviewed with patient. Patient demonstrated a need for further skilled SN services for wound/skin care and infusion care Current Discharge plan: self-care RECOMMENDATION: Next visit to focus on (be specific): PICC care with labs documented in this encounterFlower Hospital11-08-2022 Miscellaneous Notes* CARE COORDINATION - Guadalupe Guadalupe RN - 06/03/2022 5:04 PM EST Pt Moraima Marcelino VO/TC Per Moraima rAndt RN with Dr Chadwick Grimaldo: Increase Vancomycin to 750mg IV Q12H until 06/26/22 New dosing to start the morning of 06/04/22 AM Infuse over 3 hours via [facility] to mix as minibag in 250mL D5W Spoke with pt - verbalized understanding and agreement with plan - will dose around 8am-8pm documented in this encounterFlower Hospital11-07-2022 Miscellaneous Notes* SN Routine IV care and labs - Diyva Solomon RN - 06/02/2022 8:30 AM EST SITUATION: Long-Term routine IV for IV care and labs visit completed today. daughter also present duringtoday's visit. patient and caregiver reports the following: Allergies--reviewed Medications--reviewed current medications Falls--None BACKGROUND: Reason for Home Care: Infection and inflammatory reaction due to internal right knee prosthesis ASSESSMENT: SN greeted at door by Caregiver. Patient sitting in recliner. Patient appears in no acute distress. Patient/CG concerns verbalized today: Generalized Itching- MD aware. Vitals (see flow sheet for details): stable SN findings today: SN change dressing to RUE PICC and obtained lab work. Labs delivered to [facility]. SN added extension tubing to PICC line- patient administered IV antibiotic with SN supervision. Patient did not require instruction/education at all. Patient will continue to administer independently Right knee incision CLINICAL QUALITY ANALYST without any s/s of infection noted. Patient manages right knee pain with PRN Tylenol. IV care completed with no issues or concerns noted or reported. See intervention summary for education details and skills performed. Plan of care, progress towards goals, and visit frequency reviewed with patient and caregiver. Patient demonstrated a need for further skilled SN services for chronic disease management & education, medication education, wound/skin care, labs and safety. Current Discharge plan: self-care and family support RECOMMENDATION: Next visit to focus on (be specific): CP check, weekly PICC care, lab work documented in this encounterFlower Hospital11-04-2022 History of Present illness Narrative* Vidal Schmitt PA-C - 05/30/2022 11:48 AM EDT Images from the original note were not included. Ortho Knee Follow Up Note Narrative Referring Provider: No referring provider defined for this encounter. PCP: Deanna Aponte, , DO IMPRESSION/PLAN: 66 year old s/p revision Right Total Knee Replacement, insertion prostalac knee, completed on 05/15/2022. Orthopaedic Surgeries 05/15/2022 (2w, 1d) REMOVAL PROSTHESIS JOINT KNEE (Right) Yanira Garcia MD - Posted 01/19/2019 (3yr) ARTHROPLASTY REPLACE JOINT TOTAL KNEE (Right) Xavier River MD; Dominick [place] - Posted PAIN EVALUATION 05/30/2022 1101 Pain Level: 3 Pain Location: Knee-Right Description: Burning;Stiffness;Dull Duration Amount of Time: 15 DOS 05/15/2022 Duration Units: Days Frequency: Intermittent Intervention/Comfort measure: Reposition;Relaxation;Positioning;Cold;Medication Extra Strength Tylenol IMPRESSION: At normal post-operative stage of recovery. Cultures from OD grew one colony of Staph Epi PLAN: Continue current conservative treatment. Rest, Ice, Compression, Elevation PRN. Continue Antibiotics per ID Patient Reassurance: Patient reassured and supported. All questions answered. Follow up 4 weeks No X-Rays Needed Mariajose Marcelino presents today for a a routine 1st post-op visit ACTIVE PROBLEM LIST Primary Osteoarthritis of Left Knee Essential Hypertension Acquired Hypothyroidism Other Hyperlipidemia Mild Intermittent Asthma Without Complication Status Post Total Right Knee Replacement Status post op: BMI: There is no height or weight on file to calculate BMI. Post-operative recovery was complicated by uneventful/none. Readmission(s) since surgery (90 days post)? No ED Visits & Hospitalizations - Last 180 days 05/15/22 Yanira Garcia MD, ME2E Infected orthopedic implant, sequela ..., Admission (Discharged) Patient rates their condition as improving. Does the patient still experience pain? Onset: activity. Location: Right knee. Frequency: intermittently. Pain scale: 3. Pain character: dull, stiff, burning . Relieving factors: Rest and Ice. Aggravating factors: Increased activity Post Op discharge patient location: in home. Functional Assessment is as follows: completed home PT. Functional difficulties: Stair climbing and Arising from chair. Pain Medication: Non-narcotic Currently Ambulating with: a cane Physical Therapy Data 03/22/2019 03/31/2019 04/04/2019 Surgical procedure - - - Surgical procedure date - - - AROM R knee extension -1 -2 -2 AROM R knee flexion 110 112 113 AROM L knee extension - - - AROM L knee flexion - - - Therapist that will oversee plan of care - - - Prognosis - - - Frequency - - - Duration - - - Total number of visits - - - Planned treatment interventions - - - Plan for next visit - - - EXAM: POST OP KNEE Right Post-Operative Knee Ambulates with a limp favoring the right. SKIN: Appropriate postop appearance, No evidence of erythema, warmth, discharge or drainage, and Incision clean/dry/intact. Sutures removed Range of motion is 0 degrees in extension and 90 degrees of flexion. Extension La degrees Pain with ROM: No There is Moderate effusion. Mal-alignment: No Tender to the palpation of None Neurovascular Status: Sensation Intact, Moves foot and ankle up & down, Moves toes up and down,2+ dorsalis pedis, and negative homans sign Stability:Anterior/Posterior- Yes, stable and Varus/Valgus- Yes, stable Quad strength: improving Imagin. Implants are well aligned. Implants are well fixed. There is no evidence of loosening. Patella is well positioned. Provider: Vidal Schmitt PA-C Completed by: Vidal Schmitt PA-C documented in this encounterFlower Hospital11-04-2022 Miscellaneous Notes* [facility] - Alba Mendenhall RT(Chadwick) - 05/30/2022 10:20 AM EDT Radiology Service Progress Note PATIENT NAME: Mariajose Marcelino DATE OF SERVICE: May 30, 2022 TIME: 10:59 AM PATIENT IDENTITY VERIFICATION COMPLETED USING TWO (2) IDENTIFIERS: Name and Date of confirmedby patient verbally. FALL SCREENING: Has the patient had 2 falls in the last year or 1 fall with injury or currently using an Ambulatory Assistive Device (Walker, Cane, Wheelchair, Crutches, etc.)? No PATIENT GENDER DATA: Female. status: : No status: NO. PATIENT RELEVANT IMPLANT DATA REVIEWED: Not Applicable RADIOLOGY DEPARTMENT: General X-ray: Exam(s) Completed: Lower Extremity X- Ray(s): Knee, AP / Lat / Merchant Right PERIPHERAL IV DATA: Not applicable SIGNED BY: RT Ramy(R) May 30, 2022 10:59 AM documented in this encounterFlower Hospital11-04-2022 Progress note* [facility] - Alba Mendenhall RT(R) - 05/30/2022 10:20 AM EDT Radiology Service Progress Note PATIENT NAME: Mariajose Marcelino DATE OF SERVICE: May 30, 2022 TIME: 10:59 AM PATIENT IDENTITY VERIFICATION COMPLETED USING TWO (2) IDENTIFIERS: Name and Date of confirmedby patient verbally. FALL SCREENING: Has the patient had 2 falls in the last year or 1 fall with injury or currently using an Ambulatory Assistive Device (Walker, Cane, Wheelchair, Crutches, etc.)? No PATIENT GENDER DATA: Female. status: : No status: NO. PATIENT RELEVANT IMPLANT DATA REVIEWED: Not Applicable RADIOLOGY DEPARTMENT: General X-ray: Exam(s) Completed: Lower Extremity X- Ray(s): Knee, AP / Lat / Merchant Right PERIPHERAL IV DATA: Not applicable SIGNED BY: RT Ramy(R) May 30, 2022 10:59 AM [facility] Miscellaneous Notes* SN Routine IV - Irene Badillo RN - 05/29/2022 8:46 AM EDT SITUATION: Long-Term routine IV visit completed today. only patient also present during today's visit. patient reports the following: Allergies--reviewed Medications--reviewed current medications Falls--None BACKGROUND: Reason for Home Care: sp infection to rt knee replacement ASSESSMENT: SN greeted at door by caregiver. Upon entrance patient found in chair Patient appears in no acute distress. During visit, patient demonstrated independence with IV infusion and requires no further visits forIV infusion instructions. Patient/CG concerns verbalized today: none Vitals (see flow sheet for details): stable SN findings today: Vanc trough drawn from Rt arm PICC, no complications taken to [facility]. See intervention summary for education details and skills performed. Plan of care, progress towards goals, and visit frequency reviewed with patient. Patient demonstrated a need for further skilled SN services for chronic disease management & education, medication education, wound/skin care, infusion care, labs and safety Current Discharge plan: self-care and family support RECOMMENDATION: Next visit to focus on (be specific): labs picc care and cp assessment documented in this encounterFlower Hospital11-01-2022 Miscellaneous Notes* CARE COORDINATION - Rosita Zaragoza RN - 05/27/2022 6:30 PM EDT per orders of Dr Chadwick Grimaldo: Hold vancomycin the evening of 05/27/22 Decrease vancomycin to 750mg IV Q24H until 06/26/22 New dose to start the morning of 05/28/22 Infuse over 3 hours via [facility] to mix as minibag in 250mL D5W * CARE COORDINATION - Rosita Zaragoza RN - 05/27/2022 6:30 PM EDT per orders of Dr Chadwick Grimaldo draw vancomycin trough on 05/29/22 documented in this encounterFlower Hospital10-31-2022 Miscellaneous Notes* [facility] Routine IV care and labs - Divya Solomon RN - 05/26/2022 8:35 AM EDT SITUATION: Long-Term routine IV for IV care and labs visit completed today. daughter also present duringtoday's visit. patient and caregiver reports the following: Allergies--reviewed Medications--reviewed current medications Falls--None BACKGROUND: Reason for Home Care: Infection and inflammatory reaction due to internal right knee prosthesis ASSESSMENT: SN greeted at door by Caregiver. Patient sitting in recliner. Patient appears in no acute distress. Patient/CG concerns verbalized today: Generalized Itching- MD aware. Vitals (see flow sheet for details): stable SN findings today: SN change dressing to [facility] PICC and obtained lab work. Labs delivered to [facility]. SN administered Vancomycin per caregiver request. Caregiver independent with administration of IV antibiotic on non-SN visit days. Right knee incision CLINICAL QUALITY ANALYST without any s/s of infection noted, sutures intact. Patient manages right knee pain with PRN Tylenol. Patient ambulates with wheeled walker. IV care completed with no issues or concerns noted or reported. See intervention summary for education details and skills performed. Plan of care, progress towards goals, and visit frequency reviewed with patient and caregiver. Patient demonstrated a need for further skilled SN services for chronic disease management & education, medication education, wound/skin care, labs and safety. Current Discharge plan: self-care and family support RECOMMENDATION: Next visit to focus on (be specific): CP check, weekly PICC care, lab work. documented in this encounterFlower Hospital10-28-2022 Miscellaneous Notes* CARE COORDINATION - Mercedes Adler RN - 05/23/2022 9:56 AM EDT Janene with Dr. Grimaldo's office returned call, Dr. Grimaldo instructed pt. to double to duration time of the infusion, and wants her to call office if symptoms persist. Call to patient and explained andshe voiced understaning and gave her dr. Grimaldo's phone number if any further problems. documented in this encounterFlower Hospital10-28-2022 Miscellaneous Notes* CARE COORDINATION - Mercedes Adler RN - 05/23/2022 8:45 AM EDT Received call from patient, she c/o chest discomfort while running vancomycin this am, she states she is running at correct speed, not too fast, no other symptoms , no flushing, no fever, no shortness of breath,she stopped IV and flushed line and discomfort went away. Wants to know is she should continue. Call to Dr. Dante Grimaldo's office, spoke with nurse Watters and explained symptoms and asked for recommendation, she will let the doctor know and call us back with what the doctor suggests. Notified patient we are waiting for a call back. documented in this encounterFlower Hospital10-26-2022 Miscellaneous Notes* SN Routine IV - Divya Solomon RN - 05/21/2022 10:28 AM EDT SITUATION: Long-Term routine IV visit completed today. daughter also present during today's visit. patient and caregiver reports the following: Allergies--reviewed Medications--reviewed current medications Falls--None BACKGROUND: Reason for Home Care: Infection and inflammatory reaction due to internal right knee prosthesis ASSESSMENT: SN greeted at door by caregiver. Upon entrance patient found in chair Patient appears in no acute distress. During visit, caregiver demonstrated independence with IV infusion and requires no further visits for IV infusion instructions. Patient/CG concerns verbalized today: Right Knee Silverlon dressing saturated. Vitals (see flow sheet for details): stable SN findings today: Patient c/o right knee pain that is managed with PRN Tylenol. Silverlon dressingto right knee saturated with blood again. SN removed- cleansed with soap and water, covered with Dry sterile dressing and applied MILTON wrap for compression. SN educated patient/caregiver on changing saturated dressing, applying new dressing and apply MILTON wrap for compression- verbalizes understanding. Caregiver independently administered IV antibiotic prior to SN arrival. She will continue to independently adminster IV flushes and antibiotic throughout duration of therapy. See intervention summary for education details and skills performed. Plan of care, progress towards goals, and visit frequency reviewed with patient and caregiver. Patient demonstrated a need for further skilled SN services for chronic disease management & education, medication education, wound/skin care, infusion care, labs and safety Current Discharge plan: self-care and family support RECOMMENDATION: Next visit to focus on (be specific): CP check, wound assessment, weekly PICC care/lab work. documented in this encounterFlower Hospital10-25-2022 Miscellaneous Notes* Telephone Encounter - Divya Solomon RN - 05/20/2022 11:01 PM EDT I saw patient today for IV antibiotic administration. During visit patient had bloody drainage seeping from right knee dressing. SN removed dressing- incision has no s/s of infection, sutures intact.Patient has active bloody drainage. SN cleansed incision with saline, pat dry and applied new Silverlon dressing. Picture of incision was uploaded into [facility]. I will be seeing patient again tomorrow for follow up. SN instructed patient to keep RLE elevated and apply cold compress as ordered. Thank you, Divya- appeals examiner documented in this encounterFlower Hospital10-25-2022 Miscellaneous Notes* CARE COORDINATION - Rosita Zaragoza RN - 05/20/2022 6:45 PM EDT per orders of Dr. Ashwin Grimaldo Vancomycin 1.25gm IV every 12 hours Infuse over 90 minutes via [facility] to mix as minibag in 250mL D5W documented in this encounterFlower Hospital10-25-2022 Miscellaneous Notes* PT EVALUATION - Amaya Manzano, PT - 05/20/2022 2:25 PM EDT SITUATION: daughter present during today's visit. patient reports the following since the last homecare visit:medications/allergies--no changes, no fall. patient reports having bleeding from incision. Nurse came earlier and shcanged dressing and call to MD. States feels has hematoma and . BACKGROUND: Diagnoses (reason for Home Care): Infection and inflammatory reaction due to internal right knee prosthesis, initial encounter Encounter for adjustment and management of vascular access device Past Medical History: Primary Osteoarthritis of Left Knee Essential Hypertension Acquired Hypothyroidism Other Hyperlipidemia Mild Intermittent Asthma Without Complication Status Post Total Right Knee Replacement Weight Bearing or Surgical Precautions: WBAT ASSESSMENT: [facility] Reviewed and explained homecare services. Plan of care, goals, and visit frequency developed, reviewed, and agreed upon with patient and/or caregiver. Patient on recliner with leg elevated. Reports drainage last night, nurse replaced dressing this morning. MD office called aptient and to limit mobility, ice and elevate with compression milton wrap over knee. Patient feels no PT needs at this time. She had spacer in knee at this time and no therapy for knee at this time. Instructed need to maintain knee extension, circulation, family supportive and to call if questions Patient Goal: return to normal Patient will benefit from continued physical therapy to address the following deficits: strength and endurance. Current Discharge Plan:family support. Anticipate discharge by 05/20/22 RECOMMENDATION: Next visit to focus on PT eval only See intervention summary for intervention/education details. [facility]10-[facility] Miscellaneous Notes* SN Routine IV - Divya Solomon RN - 05/20/2022 10:39 AM EDT SITUATION: Long-Term routine IV for IV care and labs visit completed today. daughter also present duringtoday's visit. patient and caregiver reports the following: Allergies--reviewed Medications--reviewed current medications Falls--None BACKGROUND: Reason for Home Care: Infection and inflammatory reaction due to internal right knee prosthesis ASSESSMENT: SN greeted at door by caregiver. Upon entrance patient found in chair Patient appears in no acute distress. Patient/CG concerns verbalized today: None Vitals (see flow sheet for details): stable SN findings today: Patient c/o right knee pain that is managed with PRN TYlenol and Oxycodone. Patient has Aquacel dressing that has moderate amounts of sang drainage noted. SN removed Silverlon dressing, uploaded picture of incision into EPIC, cleansed with saline, pat dry and reapplied new Silverlon dressing- patient tolerated well. MD notified of above. Patients daughter present for visit and administered IV antibiotic with SN instruction/education. Caregiver requesting further SN instruction/supervision for administration of IV antibiotic. IV care completed with no issues or concerns noted or reported. See intervention summary for education details and skills performed. Plan of care, progress towards goals, and visit frequency reviewed with patient and caregiver. Patient demonstrated a need for further skilled SN services for chronic disease management & education, medication education, wound/skin care, infusion care, labs and safety. Current Discharge plan: self-care and family support RECOMMENDATION: Next visit to focus on (be specific): Weekly PICC care/lab work, education/instruction/supervision of Caregiver administering IV antibiotics, wound assessment documented in this encounterFlower Hospital10-25-2022 Miscellaneous Notes* Telephone Encounter - Kemal Shin Sedc - 05/20/2022 9:24 AM EDT Patient woke up this morning and was cleaning up in the bathroom this morning and had some dark red blood running down her leg. She is not sure what to do. It freaks her out. She has a visiting nurse coming this morning. She would like to speak with Rafita. PH: [phone]. Kemal Carranza Med Sedc documented in this encounterFlower Hospital10-24-2022 Miscellaneous Notes* SN PRN IV - Concepcion Frederick RN - 05/19/2022 8:09 PM EDT SITUATION: Long-Term PRN visit completed today. daughters also present during today's visit. patient reports the following: Allergies--reviewed Medications--reviewed current medications Falls--None BACKGROUND: Reason for Home Care: Infection and inflammatory reaction due to internal right knee prosthesis, initial encounter Encounter for adjustment and management of vascular access device Any one of the comorbidities from the list below may have a deleterious effect on the primary home care diagnosis Reason for PRN IV Visit: Infusion management concern ASSESSMENT: SN greeted at door by caregiver. Upon entrance patient found in chair Patient appears in no acute distress. Patient/CG concerns verbalized today: Daughters need guidance through each step of IV ATB administration and patient is slightly pink and tender around the edge of PICC dressing Vitals (see flow sheet for details): stable SN findings today: A&Ox4. Nonlabored breathing on room air. Patiet denies pain. Patient's threedaughters were present; patient's daughter spiked bag, primed tubing, flushed PICC and started IV ATB with prompting from SN. Daughters still need more teaching. SN emailed pharmacy inquiring about alternative PICC dressings for sensitive skin. See intervention summary for education details and skills performed. RECOMMENDATION: Next visit to focus on (be specific): IV ATB administration teaching documented in this encounterFlower Hospital10-24-2022 Miscellaneous Notes* [facility] Routine IV care and labs - Divya Solomon RN - 05/19/2022 10:11 AM EDT SITUATION: Long-Term routine IV for IV care and labs visit completed today. daughter also present duringtoday's visit. patient and caregiver reports the following: Allergies--reviewed Medications--reviewed current medications Falls--None BACKGROUND: Reason for Home Care: Infection and inflammatory reaction due to internal right knee prosthesis ASSESSMENT: SN greeted at door by caregiver. Upon entrance patient found in chair Patient appears in no acute distress. Patient/CG concerns verbalized today: None Vitals (see flow sheet for details): stable SN findings today: SN changed RUE SL PICC dressing and obtain lab work- labs delivered to [facility]. Patient c/o right knee pain that is managed with PRN TYlenol and Oxycodone. Patient has Aquacel dressing that has scant drainage noted and outlined. SN to remove dressing on 05/22/2022. Patients daughter present for visit and administered IV antibiotic with SN instruction/education. Caregiverrequesting further SN instruction/supervision for administration of IV antibiotic. SN to add visitson for 05/20 an 05/21. SN also added visit on for 05/22/2022 to remove Aquacel Dressing. IV care completed with no issues or concerns noted or reported. See intervention summary for education details and skills performed. Plan of care, progress towards goals, and visit frequency reviewed with patient and caregiver. Patient demonstrated a need for further skilled SN services for chronic disease management & education, medication education, wound/skin care, infusion care, labs and safety. Current Discharge plan: self-care and family support RECOMMENDATION: Next visit to focus on (be specific): Weekly PICC care/lab work, education/instruction/supervision of Caregiver administering IV antibiotics, wound assessment documented in this encounterFlower Hospital10-23-2022 Miscellaneous Notes* Telephone Encounter - Gyant - 05/18/2022 7:14 PM EDT Record ID: [id number] Patient name: Mariajose Marcelino Date: May 18, 2022 - 02:14 Administered by: EVELIA Protocol: Did you receive your discharge instructions? -> yes Do you have any questions about your discharge instructions? Or do you need clarification on anything? -> no Good! Let's move on. -> undefined Do you have a follow-up appointment scheduled already? -> yes Do you think you'll be able to attend your follow-up appointment? -> yes Do you have any questions about getting or taking your medications? -> no Do you have any new or worsening symptoms? -> no How likely is it that you would recommend [facility] to a friend or family member? -> verylikely Please tell me what you liked best about your hospital experience: -> High level of concern for my health situation. documented in this encounterFlower Hospital10-23-2022 Miscellaneous Notes* PRN IV - Romelia Aragon RN - 05/18/2022 4:58 PM EDT SITUATION: Long-Term PRN visit completed today. daughter also present during today's visit. patient and caregiver reports the following: Allergies--reviewed Medications--full medication reconciliation completed Falls--None BACKGROUND: Reason for Home Care: PICC care abd labs Reason for PRN IV Visit: infusion education ASSESSMENT: SN greeted at door by caregiver. Upon entrance patient found in chair Patient appears in no acute distress. Vitals (see flow sheet for details): stableSN findings today: Pt present today in her chair she uses her walker for assist her daughters are present for educated PICC education and atb admin done this visit -t tolerated well See intervention summary for education details and skills performed. RECOMMENDATION: Next visit to focus on (be specific): picc care labs and education documented in this encounterFlower Hospital10-23-2022 Miscellaneous Notes* [facility] SOC - Irene Badillo RN - 05/18/2022 9:20 AM EDT SITUATION: Long-Term SOC visit completed today. daughters also present during today's visit. patient reports the following: Allergies--reviewed Medications--full medication reconciliation completed Falls--None DME-Reviewed and added to chart BACKGROUND: Discharged/Referral from [facility] on following treatment for sp rt knee infection. Pertinent referral information or other diagnoses that may affect plan of care: Primary Osteoarthritis of Left Knee Essential Hypertension Acquired Hypothyroidism Other Hyperlipidemia Mild Intermittent Asthma Without Complication Status Post Total Right Knee Replacement ASSESSMENT: SN greeted at door by caregiver. Upon entrance patient found in recliner with rt leg elevated Patient appears in no acute distress. Patient lives at home alone. Home environment: clean and uncluttered. SOC booklet reviewed & completed with patient and consent obtained for Home Care services. Patient/CG concerns verbalized today: none Vitals (see flow sheet for details): stable SN findings today: pt pleasnat and cooperative with care. Pts daughters are present for visit and will learning to do IV ATB. Pt sitting on recliner with rt knee elevated with ice machine to knee. Ptreports that astham is well controlled no issues at this time. Incision to rt knee covered with post -op dressing to be removed on 05/22/2022. Pt uses walker to ambualte gait slow and unsteady. Pt has been prescribe oxycodone but not using but takes tylenol for pain instead. Pt and Cg will need continued iV teaching this evening and possibly in the am. PICC to rt arm noted, flushes well with brisk blood return, no issues noted. See intervention summary for education details and skills performed. Plan of care and visit frequency established with patient and plan of care agreed upon. Patient demonstrated a need for further skilled SN services for chronic disease management & education, medication education, wound/skin care, infusion care, labs and safety. RECOMMENDATION: Visit Frequency: 3w1 1w6 Need for additional services: Patient agreeable to PT referrals. Patient declined N/A referrals. Additional concerns to be followed up on: NONE Next visit to focus on (be specific): IV education documented in this encounterFlower Hospital10-21-2022 Miscellaneous Notes* Telephone Encounter - Stefanie Murphy LPN - 05/16/2022 4:[address] Yanira Garcia Please advise if you are agreeable to signing and following for [facility] services? Our Clinicians will be sending the Plan of Care to you for review and approval. They will reach out for any appropriate orders required to provide home care services for the patient. We are not able to initiate HHC services without a following provider. Home care clinicians may also obtain orders from [facility] Thank you and we would be happy to answer any questions. Stefanie Murphy LPN 05/16/2022 4:43 PM documented in this encounterFlower Hospital10-20-2022 History of Past illness Narrative* Problem Noted Date Resolved Date Infected orthopedic implant, sequela 05/15/2022 05/16/2022 Arthritis of knee 01/19/2019 01/20/2019 Primary osteoarthritis of right knee 05/24/2018 02/17/2019 documented as of this encounter (statuses as of 05/16/2022) [facility] Narrative* Problem Noted Date Resolved Date Infected orthopedic implant, sequela 05/15/2022 05/16/2022 Arthritis of knee 01/19/2019 01/20/2019 Primary osteoarthritis of right knee 05/24/2018 02/17/2019 documented as of this encounter (statuses as of 05/18/2022) [facility] Narrative* Problem Noted Date Resolved Date Infected orthopedic implant, sequela 05/15/2022 05/16/2022 Arthritis of knee 01/19/2019 01/20/2019 Primary osteoarthritis of right knee 05/24/2018 02/17/2019 documented as of this encounter (statuses as of 05/18/2022) [facility] Narrative* Problem Noted Date Resolved Date Infected orthopedic implant, sequela 05/15/2022 05/16/2022 Arthritis of knee 01/19/2019 01/20/2019 Primary osteoarthritis of right knee 05/24/2018 02/17/2019 documented as of this encounter (statuses as of 05/19/2022) [address]20-2022 History of Past illness Narrative* Problem Noted Date Resolved Date Infected orthopedic implant, sequela 05/15/2022 05/16/2022 Arthritis of knee 01/19/2019 01/20/2019 Primary osteoarthritis of right knee 05/24/2018 02/17/2019 documented as of this encounter (statuses as of 05/20/2022) [facility]* Problem Noted Date Resolved Date Infected orthopedic implant, sequela 05/15/2022 05/16/2022 Arthritis of knee 01/19/2019 01/20/2019 Primary osteoarthritis of right knee 05/24/2018 02/17/2019 documented as of this encounter (statuses as of 05/20/2022) [facility]* Problem Noted Date Resolved Date Infected orthopedic implant, sequela 05/15/2022 05/16/2022 Arthritis of knee 01/19/2019 01/20/2019 Primary osteoarthritis of right knee 05/24/2018 02/17/2019 documented as of this encounter (statuses as of 05/20/2022) [facility]arrative* Problem Noted Date Resolved Date Infected orthopedic implant, sequela 05/15/2022 05/16/2022 Arthritis of knee 01/19/2019 01/20/2019 Primary osteoarthritis of right knee 05/24/2018 02/17/2019 documented as of this encounter (statuses as of 05/21/2022) [facility]* Problem Noted Date Resolved Date Infected orthopedic implant, sequela 05/15/2022 05/16/2022 Arthritis of knee 01/19/2019 01/20/2019 Primary osteoarthritis of right knee 05/24/2018 02/17/2019 documented as of this encounter (statuses as of 05/21/2022) [facility]* Problem Noted Date Resolved Date Infected orthopedic implant, sequela 05/15/2022 05/16/2022 Arthritis of knee 01/19/2019 01/20/2019 Primary osteoarthritis of right knee 05/24/2018 02/17/2019 documented as of this encounter (statuses as of 05/21/2022) [address]20-2022 History of Past illness Narrative* Problem Noted Date Resolved Date Infected orthopedic implant, sequela 05/15/2022 05/16/2022 Arthritis of knee 01/19/2019 01/20/2019 Primary osteoarthritis of right knee 05/24/2018 02/17/2019 documented as of this encounter (statuses as of 05/22/2022) [facility]* Problem Noted Date Resolved Date Infected orthopedic implant, sequela 05/15/2022 05/16/2022 Arthritis of knee 01/19/2019 01/20/2019 Primary osteoarthritis of right knee 05/24/2018 02/17/2019 documented as of this encounter (statuses as of 05/22/2022) [facility]* Problem Noted Date Resolved Date Infected orthopedic implant, sequela 05/15/2022 05/16/2022 Arthritis of knee 01/19/2019 01/20/2019 Primary osteoarthritis of right knee 05/24/2018 02/17/2019 documented as of this encounter (statuses as of 05/22/2022) [facility]* Problem Noted Date Resolved Date Infected orthopedic implant, sequela 05/15/2022 05/16/2022 Arthritis of knee 01/19/2019 01/20/2019 Primary osteoarthritis of right knee 05/24/2018 02/17/2019 documented as of this encounter (statuses as of 05/23/2022) [facility]* Problem Noted Date Resolved Date Infected orthopedic implant, sequela 05/15/2022 05/16/2022 Arthritis of knee 01/19/2019 01/20/2019 Primary osteoarthritis of right knee 05/24/2018 02/17/2019 documented as of this encounter (statuses as of 05/23/2022) [facility]* Problem Noted Date Resolved Date Infected orthopedic implant, sequela 05/15/2022 05/16/2022 Arthritis of knee 01/19/2019 01/20/2019 Primary osteoarthritis of right knee 05/24/2018 02/17/2019 documented as of this encounter (statuses as of 05/23/2022) [facility]* Problem Noted Date Resolved Date Infected orthopedic implant, sequela 05/15/2022 05/16/2022 Arthritis of knee 01/19/2019 01/20/2019 Primary osteoarthritis of right knee 05/24/2018 02/17/2019 documented as of this encounter (statuses as of 05/27/2022) [facility]* Problem Noted Date Resolved Date Infected orthopedic implant, sequela 05/15/2022 05/16/2022 Arthritis of knee 01/19/2019 01/20/2019 Primary osteoarthritis of right knee 05/24/2018 02/17/2019 documented as of this encounter (statuses as of 05/27/2022) [facility]* Problem Noted Date Resolved Date Infected orthopedic implant, sequela 05/15/2022 05/16/2022 Arthritis of knee 01/19/2019 01/20/2019 Primary osteoarthritis of right knee 05/24/2018 02/17/2019 documented as of this encounter (statuses as of 05/29/2022) [facility]* Problem Noted Date Resolved Date Infected orthopedic implant, sequela 05/15/2022 05/16/2022 Arthritis of knee 01/19/2019 01/20/2019 Primary osteoarthritis of right knee 05/24/2018 02/17/2019 documented as of this encounter (statuses as of 05/30/2022) [facility]* Problem Noted Date Resolved Date Infected orthopedic implant, sequela 05/15/2022 05/16/2022 Arthritis of knee 01/19/2019 01/20/2019 Primary osteoarthritis of right knee 05/24/2018 02/17/2019 documented as of this encounter (statuses as of 05/30/2022) [facility]* Problem Noted Date Resolved Date Infected orthopedic implant, sequela 05/15/2022 05/16/2022 Arthritis of knee 01/19/2019 01/20/2019 Primary osteoarthritis of right knee 05/24/2018 02/17/2019 documented as of this encounter (statuses as of 06/03/2022) [facility]* Problem Noted Date Resolved Date Infected orthopedic implant, sequela 05/15/2022 05/16/2022 Arthritis of knee 01/19/2019 01/20/2019 Primary osteoarthritis of right knee 05/24/2018 02/17/2019 documented as of this encounter (statuses as of 06/04/2022) [facility]* Problem Noted Date Resolved Date Infected orthopedic implant, sequela 05/15/2022 05/16/2022 Arthritis of knee 01/19/2019 01/20/2019 Primary osteoarthritis of right knee 05/24/2018 02/17/2019 documented as of this encounter (statuses as of 06/10/2022) [facility]* Problem Noted Date Resolved Date Infected orthopedic implant, sequela 05/15/2022 05/16/2022 Arthritis of knee 01/19/2019 01/20/2019 Primary osteoarthritis of right knee 05/24/2018 02/17/2019 documented as of this encounter (statuses as of 06/12/2022) [facility]* Problem Noted Date Resolved Date Infected orthopedic implant, sequela 05/15/2022 05/16/2022 Arthritis of knee 01/19/2019 01/20/2019 Primary osteoarthritis of right knee 05/24/2018 02/17/2019 documented as of this encounter (statuses as of 06/17/2022) [facility]* Problem Noted Date Resolved Date Infected orthopedic implant, sequela 05/15/2022 05/16/2022 Arthritis of knee 01/19/2019 01/20/2019 Primary osteoarthritis of right knee 05/24/2018 02/17/2019 documented as of this encounter (statuses as of 06/21/2022) [facility]* Problem Noted Date Resolved Date Infected orthopedic implant, sequela 05/15/2022 05/16/2022 Arthritis of knee 01/19/2019 01/20/2019 Primary osteoarthritis of right knee 05/24/2018 02/17/2019 documented as of this encounter (statuses as of 06/23/2022) [facility]* Problem Noted Date Resolved Date Infected orthopedic implant, sequela 05/15/2022 05/16/2022 Arthritis of knee 01/19/2019 01/20/2019 Primary osteoarthritis of right knee 05/24/2018 02/17/2019 documented as of this encounter (statuses as of 06/24/2022) [facility]* Problem Noted Date Resolved Date Infected orthopedic implant, sequela 05/15/2022 05/16/2022 Arthritis of knee 01/19/2019 01/20/2019 Primary osteoarthritis of right knee 05/24/2018 02/17/2019 documented as of this encounter (statuses as of 06/27/2022) [facility]* Problem Noted Date Resolved Date Infected orthopedic implant, sequela 05/15/2022 05/16/2022 Arthritis of knee 01/19/2019 01/20/2019 Primary osteoarthritis of right knee 05/24/2018 02/17/2019 documented as of this encounter (statuses as of 08/14/2022) [facility]* Problem Noted Date Resolved Date Infected orthopedic implant, sequela 05/15/2022 05/16/2022 Arthritis of knee 01/19/2019 01/20/2019 Primary osteoarthritis of right knee 05/24/2018 02/17/2019 documented as of this encounter (statuses as of 12/28/2022) [facility]* Problem Noted Date Resolved Date Infected orthopedic implant, sequela 05/15/2022 05/16/2022 Arthritis of knee 01/19/2019 01/20/2019 Primary osteoarthritis of right knee 05/24/2018 02/17/2019 documented as of this encounter (statuses as of 12/29/2022) [facility]* Problem Noted Date Diagnosed Date Resolved Date Infected orthopedic implant, sequela 05/15/2022 05/16/2022 Arthritis of knee 01/19/2019 01/20/2019 Primary osteoarthritis of right knee 05/24/2018 02/17/2019 documented as of this encounter (statuses as of 03/09/2023) [facility]* Problem Noted Date Diagnosed Date Resolved Date Infected orthopedic implant, sequela 05/15/2022 05/16/2022 Arthritis of knee 01/19/2019 01/20/2019 Primary osteoarthritis of right knee 05/24/2018 02/17/2019 documented as of this encounter (statuses as of 09/04/2023) [facility]* Problem Noted Date Diagnosed Date Resolved Date Infected orthopedic implant, sequela 05/15/2022 05/16/2022 Arthritis of knee 01/19/2019 01/20/2019 Primary osteoarthritis of right knee 05/24/2018 02/17/2019 documented as of this encounter (statuses as of 09/16/2023) [facility]* Problem Noted Date Diagnosed Date Resolved Date Infected orthopedic implant, sequela 05/15/2022 05/16/2022 Arthritis of knee 01/19/2019 01/20/2019 Primary osteoarthritis of right knee 05/24/2018 02/17/2019 documented as of this encounter (statuses as of 09/17/2023) [facility]* Problem Noted Date Diagnosed Date Resolved Date Infected orthopedic implant, sequela 05/15/2022 05/16/2022 Arthritis of knee 01/19/2019 01/20/2019 Primary osteoarthritis of right knee 05/24/2018 02/17/2019 documented as of this encounter (statuses as of 09/17/2023) [facility]* Problem Noted Date Diagnosed Date Resolved Date Infected orthopedic implant, sequela 05/15/2022 05/16/2022 Arthritis of knee 01/19/2019 01/20/2019 Primary osteoarthritis of right knee 05/24/2018 02/17/2019 documented as of this encounter (statuses as of 09/25/2023) [facility]* Problem Noted Date Diagnosed Date Resolved Date Infected orthopedic implant, sequela 05/15/2022 05/16/2022 Arthritis of knee 01/19/2019 01/20/2019 Primary osteoarthritis of right knee 05/24/2018 02/17/2019 documented as of this encounter (statuses as of 09/25/2023) [facility] History of Past illness Narrative* Problem Noted Date Diagnosed Date Resolved Date Infected orthopedic implant, sequela 05/15/2022 05/16/2022 Arthritis of knee 01/19/2019 01/20/2019 Primary osteoarthritis of right knee 05/24/2018 02/17/2019 documented as of this encounter (statuses as of 11/12/2023) [facility] History of Past illness Narrative* Problem Noted Date Diagnosed Date Resolved Date Infected orthopedic implant, sequela 05/15/2022 05/16/2022 Arthritis of knee 01/19/2019 01/20/2019 Primary osteoarthritis of right knee 05/24/2018 02/17/2019 documented as of this encounter (statuses as of 11/13/2023) [facility] Miscellaneous Notes* Telephone Encounter - Vidal Schmitt PA-C - 05/09/2022 2:08 PM EDT Mariajose's aspiration is positive for staph. She understands this will require a two stage procedure and is able to come for surgery next week, 06/15/22. Vidal Schmitt PA-C [facility] History of Present illness Narrative* Vidal Schmitt PA-C - 05/01/2022 11:28 AM EDTAssociated Order(s): Large Joint Arthro/Inj: R knee joint Post-Procedure Diagnose(s): Pain due to total right knee replacement, initial encounter (HCC); Paindue to internal orthopedic prosthetic devices, implants and grafts, initial encounter ([facility]) Images from the original note were not included. DEPARTMENT OF ORTHOPAEDICS Large Joint Arthro/Inj: R knee joint Informed Consent Consent Obtained: Verbal [place] Protocol A moment to CARE was completed. SIGN IN Personnel directly involved with the procedure wore the appropriate PPE. Special Equipment: N/A Patient/Surrogate Stated/Verified: Patient name, Date of , Relevant allergies and Intended procedure TIME OUT Intended patient and procedure match the source document(s). Consent documented and matches the intended procedure. Relevant labs, photos, and/or imaging studies have been reviewed. Correct side/site marked and visible. Medications required for procedure verified. No fire risk assessment and interventions applicable. No implant(s) inserted. 05/01/2022 11:20 AM The procedure site was prepped in the usual sterile fashion. Site: R knee joint Aspirate: 15 mL cloudy and purulent sent for Synovasure analysisAnesthetics: 3 mL lidocaine (PF) 10 mg/mL (1 %) Outcome: Tolerated well, no immediate complications Post-injection instructions were reviewed with the patient and the patient voiced understanding of these instructions. SIGN OUT All specimen containers correctly labeled. No instruments, equipment or retained foreign bodies applicable. Post-procedure follow-up management communicated and Plan of Care Visit completed when applicable Vidal Schmitt PA-C CC: Follow-up visit after knee replacement HPI: Ms. Marcelino is here today for her 3 year clinical follow up status post right total knee replacement.Since her last visit Ms. Marcelino conveys the interval has been complicated by periodic knee swelling and pain. Mariajose states the knee always seems warm to touch. 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 The discomfort does not keep her from activities and she denies fever, chills respiratory or urinary symptoms. Pleased with outcome: Yes Pain? 0 and 5 on a scale of 1-10 Ambulatory support: none Distance able to walk:> 30 minutes Stairs up easier than down Requires a handrail: No Able to kneel: Yes Able to arise from chair: Yes with ease Back issues: denies Pain Medication: none REVIEW OF SYSTEMS: No new medical issues PAST MEDICAL HISTORY Diagnosis Date Asthma due to seasonal allergies Hyperlipidemia Hypertension Hypothyroidism PAST SURGICAL HISTORY Procedure Laterality Date DELIVERY ONLY 10/1978 , low transverse DELIVERY ONLY 05/1980 , low transverse DELIVERY ONLY 11/1982 , low transverse DELIVERY ONLY 11/1984 , low transverse LAPAROSCOPY SURG CHOLECYSTECTOMY 2005 Cholecystectomy, lap PAST SURGICAL HISTORY OF 1998 Partial hysterectomy Current Outpatient Medications Medication Sig Dispense Refill clindamycin (CLEOCIN) 300 mg capsule Take two capsules by mouth one hour prior to dental appointment. 2 capsule 3 Lactobacillus acidophilus (PROBIOTIC ORAL) Take by mouth. albuterol sulfate (PROAIR HFA INHALATION) Inhale 1 Puff as instructed as needed. rosuvastatin (CRESTOR) 40 mg tablet Take 40 mg by mouth once daily. VIT A-I-[id number]-ALA-DHA ORAL Take by mouth. estradiol (ESTRACE) 0.01 % (0.1 mg/gram) vaginal cream Use 1 g vaginally twice a week. levothyroxine (SYNTHROID) 50 mcg tablet Take 1 tablet by mouth daily before breakfast. montelukast (SINGULAIR) 10 mg tablet Take 1 tablet by mouth daily at bedtime. therapeutic multivitamin (THERA VITAMIN) tablet Take 1 tablet by mouth once daily. TURMERIC ROOT EXTRACT ORAL Take 1 capsule by mouth once daily. lisinopril (ZESTRIL, PRINIVIL) 10 mg tablet Take 1 tablet by mouth once daily. No current facility-administered medications for this visit. ALLERGIES Allergen Reactions Ceclor [Cefaclor] Mental Status Change, Rash No family history on file. Social History Tobacco Use Smoking status: Never Smokeless tobacco: Never Substance Use Topics Alcohol use: No Drug use: No EXAMINATION: GENERAL:normal body habitus and no apparent distress RESP:Unlabored with no shortness of breath CV: No extremity swelling, varices, edema, pallor, erythema Ms. Marcelino has no difficulty arising out of a chair and has no difficulty ambulating in the exam room. her gait was normal, able to toe walk without difficulty, and able to heel walk without difficulty. LOWER EXTREMITIES: On the exam table seated and supine, hip range of motion bilaterally was symmetric, unrestricted and non-painful. No trochanteric pain to palpation. Straight leg raise and femoral nerve stretch testswere negative for acute radicular symptoms to suggest spine problems. Examination of the right knee reveals Single previous incisions and has warmth but no erythema or tenderness. Moderate effusion. Range of motion is 0 degrees in extension and 100 degrees of flexion actively. No varus-valgus instability with patella tracking midline. No patellofemoral crepitus. Examination of the left knee reveals No previous incisions and has no erythema, warmth or tenderness. Range of motion is 0 degrees in extension and 120 degrees of flexion actively. Mild varus-valgus instability with patella tracking midline. Significant patellofemoral crepitus. Both lower extremities were neurovascularly intact, has no evidence of cellulitis, and has no distal swelling. X-RAYS: right Triathlon cruciate retained total knee showing good component sizing, position, and alignment. The patella tracks midline. Radiographic review has concerns for loosening with osteolysisbeneath the tibial baseplate medial and lateral and resorption of medial femoral condyle on AP view. has no findings of wear. ASSESSMENT: S/P right total knee arthroplasty and concern for loosening with infection. PLAN: Check inflammatory markers Bone scan Aspiration right knee sent to [facility] Likely will need surgery. Single stage if no infection, probable two stage if infection is present. Follow up will be with Dr. Garcia once test results are avaiable. If there are any questions or problems, patient instructed to call the office. Rx Drug Management: No prescription given at today's appointment. Vidal Schmitt PA-C [facility] Miscellaneous Notes* Telephone Encounter - Tasia Otero - 04/28/2022 3:50 PM EDT Patient is scheduled for 05/01/22. * Telephone Encounter - Vidal Schmitt PA-C - 04/28/2022 2:18 PM EDT I talked with Mariajose. She denies trauma but a week ago started walking more to help with weight bearing exercise and her bone density. Mariajose is 3 years S/P right total knee. I will ask our schedulers to call her to set up an appointment this week. Vidal Schmitt PA-C * Telephone Encounter - Kemal Shin [facility] - 04/28/2022 2:10 PM EDT Patient is S/P R TKA 3 years ago this past December. She states that the back of her knee swells up andinto her calf. Also the knee cap is warm to touch. It doesn't get hot per say like an infection it is just warm. She has been walking 1/2 hour a day per her physicians instructions and she is not sure what to think about the knee. She also mentioned that she gets a massage once a month and her therapist always mentions how stiff her knee. Rafita, I wasn't sure if you could give her a call. I am not sure if this is anything to worry about. Please call her to make an appointment to follow-up with Rafita for right knee pain. S/P R TKA. She will need x-rays prior to her appointment. She can be reached at [phone]. Kemal Shin [facility] in [facility] encounterF[facility] History of Past illness Narrative* Problem Noted Date Resolved Date Arthritis of knee 01/19/2019 01/20/2019 Primary osteoarthritis of right knee 05/24/2018 02/17/2019 documented as of this encounter (statuses as of 04/28/2022) [facility] History of Past illness Narrative* Problem Noted Date Resolved Date Arthritis of knee 01/19/2019 01/20/2019 Primary osteoarthritis of right knee 05/24/2018 02/17/2019 documented as of this encounter (statuses as of 05/01/2022) [facility] History of Past illness Narrative* Problem Noted Date Resolved Date Arthritis of knee 01/19/2019 01/20/2019 Primary osteoarthritis of right knee 05/24/2018 02/17/2019 documented as of this encounter (statuses as of 05/09/2022) [facility] of Past illness Narrative* Problem Noted Date Resolved Date Arthritis of knee 01/19/2019 01/20/2019 Primary osteoarthritis of right knee 05/24/2018 02/17/2019 documented as of this encounter (statuses as of 05/13/2022) [facility] Diagnosis Status post total right knee replacement- Primary Acute pain of right knee [facility]* Diagnosis Pain due to internal orthopedic prosthetic devices, implants and grafts, initial encounter ([facility])- Primary Pain due to total right knee replacement, initial encounter ([facility]) [facility]* Diagnosis Pain due to internal orthopedic prosthetic devices, implants and grafts, initial encounter ([facility])- Primary Pain due to total right knee replacement, initial encounter ([facility]) Encounter for screening for COVID-19 [facility] Diagnosis Right knee pain, unspecified chronicity- Primary [facility]* Diagnosis Pain due to internal orthopedic prosthetic devices, implants and grafts, initial encounter ([facility])- Primary S/P revision of total knee, right documented in this encounter [facility] noteNo assessment information availableWSumma Health Work Phone: Evaluation note* Diagnosis Onset Date Resolution Status Atrophic vaginitis acute Encounter for routine gynecological examination noneactive [facility] Work Phone: Evaluation note* Diagnosis Submandibular lymphadenitis- Primary Lymphadenitis, unspecified, except mesenteric [facility]* Diagnosis S/P revision of total knee, right- Primary documented in this encounter [facility] note* Diagnosis S/P revision of total knee, right- Primary Osteophyte of right knee Other enthesopathy of knee documented in this encounter [facility] note* Diagnosis Pain due to total right knee replacement, initial encounter ([facility])- Primary Status post total right knee replacement Pain due to internal orthopedic prosthetic devices, implants and grafts, initial encounter ([facility]) Effusion, right knee documented in this encounter [facility] note* Diagnosis Pain due to internal orthopedic prosthetic devices, implants and grafts, initial encounter ([facility]) documented in this encounter [facility] note* Diagnosis Status post total right knee replacement- Primary Pain due to total right knee replacement, initial encounter ([facility]) Mechanical loosening of prosthetic knee, 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, 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 devices, implants and grafts, initial encounter ([facility]) documented in this encounter [facility] note* Diagnosis Mechanical loosening of prosthetic knee, subsequent encounter- Primary Pain due to internal orthopedic prosthetic devices, implants and grafts, initial encounter ([facility]) Mechanical loosening of prosthetic knee, 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 devices, implants and grafts, initial encounter ([facility]) documented in this encounter [facility] note* Diagnosis Pre-op evaluation- Primary Preoperative examination, unspecified Abnormal finding of blood chemistry, unspecified Essential hypertension Unspecified essential hypertension Other hyperlipidemia Mild intermittent asthma without complication Unspecified asthma Acquired hypothyroidism Unspecified hypothyroidism Mechanical loosening of prosthetic knee, 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 devices, implants and grafts, initial encounter ([facility]) [facility] Chronic pain of right knee- Primary Muscle weakness (generalized) S/P revision of total knee, right [facility]* Diagnosis S/P revision of total knee, right- Primary [facility]* Diagnosis Chronic pain of right knee- Primary Muscle weakness (generalized) [facility]* Diagnosis Chronic pain of right knee- Primary Muscle weakness (generalized) [facility]* Diagnosis Chronic pain of right knee- Primary Muscle weakness (generalized) [facility]* Diagnosis Chronic pain of right knee- Primary Muscle weakness (generalized) S/P revision of total knee, right Localized edema Edema [facility]* Diagnosis Chronic pain of right knee- Primary Muscle weakness (generalized) [facility] Diagnosis Chronic pain of right knee- Primary Muscle weakness (generalized) S/P revision of total knee, right Localized edema Edema [facility]* Diagnosis S/P revision of total knee, right- Primary [facility]* Diagnosis Preoperative testing- Primary Preoperative examination, unspecified Primary osteoarthritis of right knee Primary localized osteoarthrosis, lower leg Essential hypertension Unspecified essential hypertension Acquired hypothyroidism Unspecified hypothyroidism Other hyperlipidemia Mild intermittent asthma without complication Unspecified asthma Pre-op evaluation- Primary Preoperative examination, unspecified Abnormal finding of blood chemistry, unspecified Essential hypertension Unspecified essential hypertension Other hyperlipidemia Mild intermittent asthma without complication Unspecified asthma Acquired hypothyroidism Unspecified hypothyroidism Right knee pain, unspecified chronicity [facility]* Diagnosis Preoperative testing- Primary Preoperative examination, unspecified Primary osteoarthritis of right knee Primary localized osteoarthrosis, lower leg Essential hypertension Unspecified essential hypertension Acquired hypothyroidism Unspecified hypothyroidism Other hyperlipidemia Mild intermittent asthma without complication Unspecified asthma Right knee pain, unspecified chronicity Pre-op evaluation- Primary Preoperative examination, unspecified Abnormal finding of blood chemistry, unspecified Essential hypertension Unspecified essential hypertension Other hyperlipidemia Mild intermittent asthma without complication Unspecified asthma Acquired hypothyroidism Unspecified hypothyroidism [facility]* Diagnosis Preoperative testing- Primary Preoperative examination, unspecified Primary osteoarthritis of right knee Primary localized osteoarthrosis, lower leg Essential hypertension Unspecified essential hypertension Acquired hypothyroidism Unspecified hypothyroidism Other hyperlipidemia Mild intermittent asthma without complication Unspecified asthma S/P revision of total knee, right Pre-op evaluation- Primary Preoperative examination, unspecified Abnormal finding of blood chemistry, unspecified Essential hypertension Unspecified essential hypertension Other hyperlipidemia Mild intermittent asthma without complication Unspecified asthma Acquired hypothyroidism Unspecified hypothyroidism documented in this encounter [facility] note* Diagnosis Preoperative testing- Primary Preoperative examination, unspecified Primary osteoarthritis of right knee Primary localized osteoarthrosis, lower leg Essential hypertension Unspecified essential hypertension Acquired hypothyroidism Unspecified hypothyroidism Other hyperlipidemia Mild intermittent asthma without complication Unspecified asthma Right knee pain, unspecified chronicity Pre-op evaluation- Primary Preoperative examination, unspecified Abnormal finding of blood chemistry, unspecified Essential hypertension Unspecified essential hypertension Other hyperlipidemia Mild intermittent asthma without complication Unspecified asthma Acquired hypothyroidism Unspecified hypothyroidism documented in this encounter [facility] note* Diagnosis Preoperative testing- Primary Preoperative examination, unspecified Primary osteoarthritis of right knee Primary localized osteoarthrosis, lower leg Essential hypertension Unspecified essential hypertension Acquired hypothyroidism Unspecified hypothyroidism Other hyperlipidemia Mild intermittent asthma without complication Unspecified asthma Pre-op evaluation- Primary Preoperative examination, unspecified Abnormal finding of blood chemistry, unspecified Essential hypertension Unspecified essential hypertension Other hyperlipidemia Mild intermittent asthma without complication Unspecified asthma Acquired hypothyroidism Unspecified hypothyroidism Aftercare following right knee joint replacement surgery- Primary documented in this encounter [facility] note* Diagnosis Preoperative testing- Primary Preoperative examination, unspecified Primary osteoarthritis of right knee Primary localized osteoarthrosis, lower leg Essential hypertension Unspecified essential hypertension Acquired hypothyroidism Unspecified hypothyroidism Other hyperlipidemia Mild intermittent asthma without complication Unspecified asthma Pre-op evaluation- Primary Preoperative examination, unspecified Abnormal finding of blood chemistry, unspecified Essential hypertension Unspecified essential hypertension Other hyperlipidemia Mild intermittent asthma without complication Unspecified asthma Acquired hypothyroidism Unspecified hypothyroidism Bacterial sinusitis- Primary Unspecified sinusitis (chronic) documented in this encounter [facility] note* Diagnosis Preoperative testing- Primary Preoperative examination, unspecified Primary osteoarthritis of right knee Primary localized osteoarthrosis, lower leg Essential hypertension Unspecified essential hypertension Acquired hypothyroidism Unspecified hypothyroidism Other hyperlipidemia Mild intermittent asthma without complication (HCC) Unspecified asthma Pre-op evaluation- Primary Preoperative examination, unspecified Abnormal finding of blood chemistry, unspecified Essential hypertension Unspecified essential hypertension Other hyperlipidemia Mild intermittent asthma without complication (HCC) Unspecified asthma Acquired hypothyroidism Unspecified hypothyroidism Aftercare following right knee joint replacement surgery- Primary [facility]* Diagnosis Preoperative testing- Primary Preoperative examination, unspecified Primary osteoarthritis of right knee Primary localized osteoarthrosis, lower leg Essential hypertension Unspecified essential hypertension Acquired hypothyroidism Unspecified hypothyroidism Other hyperlipidemia Mild intermittent asthma without complication (HCC) Unspecified asthma Pre-op evaluation- Primary Preoperative examination, unspecified Abnormal finding of blood chemistry, unspecified Essential hypertension Unspecified essential hypertension Other hyperlipidemia Mild intermittent asthma without complication (HCC) Unspecified asthma Acquired hypothyroidism Unspecified hypothyroidism Aftercare following right knee joint replacement surgery [facility]* Diagnosis Preoperative testing- Primary Preoperative examination, unspecified Primary osteoarthritis of right knee Primary localized osteoarthrosis, lower leg Essential hypertension Unspecified essential hypertension Acquired hypothyroidism Unspecified hypothyroidism Other hyperlipidemia Mild intermittent asthma without complication (HCC) Unspecified asthma Pre-op evaluation- Primary Preoperative examination, unspecified Abnormal finding of blood chemistry, unspecified Essential hypertension Unspecified essential hypertension Other hyperlipidemia Mild intermittent asthma without complication (HCC) Unspecified asthma Acquired hypothyroidism Unspecified hypothyroidism Status post total right knee replacement [facility] Name Dates Details Patient Instructions Indication:Non-smoker Start:23-Oct-2020 Instruction Type:Provider Instructions for Treatment How to Access Health Informa tion Online using Patient Portal and [employer] Apps Indication:Non-smoker Start:23-Oct-2020 Instruction Type:Patient Education Patient Instructions Indication:Non-smoker Start:23-Jul-2020 Instruction Type:Provider Instructions for Treatment How to Access Health Informa tion Online using Patient Portal and [employer] Apps Indication:Non-smoker Start:23-Jul-2020 Instruction Type:Patient Education How to access health informa tion online Indication:Non-smoker Start:23-Feb-2020 Instruction Type:Patient Education How to access health informa tion online - Detail Indication:Non-smoker Start:23-Feb-2020 Instruction Type:Patient Education Patient Instructions Indication:Non-smoker Start:23-Feb-2020 Instruction Type:Provider Instructions for Treatment How to access health informa tion online Indication:BMI 26.0-26.9,adult Start:18-Jan-2020 Instruction Type:Patient Education How to access health informa tion online - Detail Indication:BMI 26.0-26.9,adult Start:18-Jan-2020 Instruction Type:Patient Education Patient Instructions Indication:BMI 26.0-26.9,adult Start:18-Jan-2020 Instruction Type:Provider Instructions for Treatment How to access health informa tion online Indication:BMI 26.0-26.9,adult Start:18-Jul-2019 Instruction Type:Patient Education How to access health informa tion online - Detail Indication:BMI 26.0-26.9,adult Start:18-Jul-2019 Instruction Type:Patient Education Patient Instructions Indication:BMI 26.0-26.9,adult Start:18-Jul-2019 Instruction Type:Provider Instructions for Treatment How to access health informa tion online Indication:Need for prophylactic vaccination and inoculation against influenza (Renamed from Need for immunization against influenza) Start:09-May-2019 Instruction Type:Patient Education How to access health informa tion online - Detail Indication:Need for prophylactic vaccination and inoculation against influenza (Renamed from Need for immunization against influenza) Start:09-May-2019 Instruction Type:Patient Education Patient Instructions Indication:Need for prophylactic vaccination and inoculation against influenza (Renamed from Need for immunization against influenza) Start:09-May-2019 Instruction Type:Provider Instructions for Treatment How to access health informa tion online Indication:Non-smoker Start:18-Apr-2019 Instruction Type:Patient Education How to access health informa tion online - Detail Indication:Non-smoker Start:18-Apr-2019 Instruction Type:Patient Education Patient Instructions Indication:Non-smoker Start:18-Apr-2019 Instruction Type:Provider Instructions for Treatment How to access health informa tion online Indication:Non-smoker Start:03-Mar-2019 Instruction Type:Patient Education How to access health informa tion online - Detail Indication:Non-smoker Start:03-Mar-2019 Instruction Type:Patient Education Patient Instructions Indication:Non-smoker Start:03-Mar-2019 Instruction Type:Provider Instructions for Treatment How to access health informa tion online Indication:Non-smoker Start:17-Jan-2019 Instruction Type:Patient Education How to access health informa tion online - Detail Indication:Non-smoker Start:17-Jan-2019 Instruction Type:Patient Education Patient Instructions Indication:Non-smoker Start:17-Jan-2019 Instruction Type:Provider Instructions for Treatment How to access health informa tion online Indication:Non-smoker Start:15-Jul-2018 Instruction Type:Patient Education How to access health informa tion online - Detail Indication:Non-smoker Start:15-Jul-2018 Instruction Type:Patient Education Patient Instructions Indication:Non-smoker Start:15-Jul-2018 Instruction Type:Provider Instructions for Treatment How to access health informa tion online Indication:Non-smoker Start:01-Feb-2018 Instruction Type:Patient Education How to access health informa tion online - Detail Indication:Non-smoker Start:01-Feb-2018 Instruction Type:Patient Education Patient Instructions Indication:Non-smoker Start:01-Feb-2018 Instruction Type:Provider Instructions for Treatment How to access health informa tion online - Detail Indication:Non-smoker Start:31-Dec-2017 Instruction Type:Patient Education How to access health informa tion online Indication:Non-smoker Start:31-Dec-2017 Instruction Type:Patient Education Patient Instructions Indication:Non-smoker Start:31-Dec-2017 Instruction Type:Provider Instructions for Treatment How to access health informa tion online Indication:Non-smoker Start:15-Sep-2017 Instruction Type:Patient Education How to access health informa tion online - Detail Indication:Non-smoker Start:15-Sep-2017 Instruction Type:Patient Education Patient Instructions Indication:Non-smoker Start:15-Sep-2017 Instruction Type:Provider Instructions for Treatment How to access health informa tion online Indication:BMI 30.0-30.9,adult Start:04-Sep-2017 Instruction Type:Patient Education How to access health informa tion online - Detail Indication:BMI 30.0-30.9,adult Start:04-Sep-2017 Instruction Type:Patient Education Patient Instructions Indication:BMI 30.0-30.9,adult Start:04-Sep-2017 Instruction Type:Provider Instructions for Treatment [facility]; [facility] Work Phone: Instructions* Name Dates Details Patient Instructions Indication:Non-smoker Start:23-Oct-2020 Instruction Type:Provider Instructions for Treatment How to Access Health Informa tion Online using Patient Portal and [employer] Apps Indication:Non-smoker Start:23-Oct-2020 Instruction Type:Patient Education Patient Instructions Indication:Non-smoker Start:23-Jul-2020 Instruction Type:Provider Instructions for Treatment How to Access Health Informa tion Online using Patient Portal and [employer] Apps Indication:Non-smoker Start:23-Jul-2020 Instruction Type:Patient Education How to access health informa tion online Indication:Non-smoker Start:23-Feb-2020 Instruction Type:Patient Education How to access health informa tion online - Detail Indication:Non-smoker Start:23-Feb-2020 Instruction Type:Patient Education Patient Instructions Indication:Non-smoker Start:23-Feb-2020 Instruction Type:Provider Instructions for Treatment How to access health informa tion online Indication:BMI 26.0-26.9,adult Start:18-Jan-2020 Instruction Type:Patient Education How to access health informa tion online - Detail Indication:BMI 26.0-26.9,adult Start:18-Jan-2020 Instruction Type:Patient Education Patient Instructions Indication:BMI 26.0-26.9,adult Start:18-Jan-2020 Instruction Type:Provider Instructions for Treatment How to access health informa tion online Indication:BMI 26.0-26.9,adult Start:18-Jul-2019 Instruction Type:Patient Education How to access health informa tion online - Detail Indication:BMI 26.0-26.9,adult Start:18-Jul-2019 Instruction Type:Patient Education Patient Instructions Indication:BMI 26.0-26.9,adult Start:18-Jul-2019 Instruction Type:Provider Instructions for Treatment How to access health informa tion online Indication:Need for prophylactic vaccination and inoculation against influenza (Renamed from Need for immunization against influenza) Start:09-May-2019 Instruction Type:Patient Education How to access health informa tion online - Detail Indication:Need for prophylactic vaccination and inoculation against influenza (Renamed from Need for immunization against influenza) Start:09-May-2019 Instruction Type:Patient Education Patient Instructions Indication:Need for prophylactic vaccination and inoculation against influenza (Renamed from Need for immunization against influenza) Start:09-May-2019 Instruction Type:Provider Instructions for Treatment How to access health informa tion online Indication:Non-smoker Start:18-Apr-2019 Instruction Type:Patient Education How to access health informa tion online - Detail Indication:Non-smoker Start:18-Apr-2019 Instruction Type:Patient Education Patient Instructions Indication:Non-smoker Start:18-Apr-2019 Instruction Type:Provider Instructions for Treatment How to access health informa tion online Indication:Non-smoker Start:03-Mar-2019 Instruction Type:Patient Education How to access health informa tion online - Detail Indication:Non-smoker Start:03-Mar-2019 Instruction Type:Patient Education Patient Instructions Indication:Non-smoker Start:03-Mar-2019 Instruction Type:Provider Instructions for Treatment How to access health informa tion online Indication:Non-smoker Start:17-Jan-2019 Instruction Type:Patient Education How to access health informa tion online - Detail Indication:Non-smoker Start:17-Jan-2019 Instruction Type:Patient Education Patient Instructions Indication:Non-smoker Start:17-Jan-2019 Instruction Type:Provider Instructions for Treatment How to access health informa tion online Indication:Non-smoker Start:15-Jul-2018 Instruction Type:Patient Education How to access health informa tion online - Detail Indication:Non-smoker Start:15-Jul-2018 Instruction Type:Patient Education Patient Instructions Indication:Non-smoker Start:15-Jul-2018 Instruction Type:Provider Instructions for Treatment How to access health informa tion online Indication:Non-smoker Start:01-Feb-2018 Instruction Type:Patient Education How to access health informa tion online - Detail Indication:Non-smoker Start:01-Feb-2018 Instruction Type:Patient Education Patient Instructions Indication:Non-smoker Start:01-Feb-2018 Instruction Type:Provider Instructions for Treatment How to access health informa tion online - Detail Indication:Non-smoker Start:31-Dec-2017 Instruction Type:Patient Education How to access health informa tion online Indication:Non-smoker Start:31-Dec-2017 Instruction Type:Patient Education Patient Instructions Indication:Non-smoker Start:31-Dec-2017 Instruction Type:Provider Instructions for Treatment How to access health informa tion online Indication:Non-smoker Start:15-Sep-2017 Instruction Type:Patient Education How to access health informa tion online - Detail Indication:Non-smoker Start:15-Sep-2017 Instruction Type:Patient Education Patient Instructions Indication:Non-smoker Start:15-Sep-2017 Instruction Type:Provider Instructions for Treatment How to access health informa tion online Indication:BMI 30.0-30.9,adult Start:04-Sep-2017 Instruction Type:Patient Education How to access health informa tion online - Detail Indication:BMI 30.0-30.9,adult Start:04-Sep-2017 Instruction Type:Patient Education Patient Instructions Indication:BMI 30.0-30.9,adult Start:04-Sep-2017 Instruction Type:Provider Instructions for Treatment [facility]; [facility] Work Phone: Instructions* Name Dates Details Patient Instructions Indication:Non-smoker Start:23-Oct-2020 Instruction Type:Provider Instructions for Treatment How to Access Health Informa tion Online using Patient Portal and [employer] Apps Indication:Non-smoker Start:23-Oct-2020 Instruction Type:Patient Education Patient Instructions Indication:Non-smoker Start:23-Jul-2020 Instruction Type:Provider Instructions for Treatment How to Access Health Informa tion Online using Patient Portal and [employer] Apps Indication:Non-smoker Start:23-Jul-2020 Instruction Type:Patient Education How to access health informa tion online Indication:Non-smoker Start:23-Feb-2020 Instruction Type:Patient Education How to access health informa tion online - Detail Indication:Non-smoker Start:23-Feb-2020 Instruction Type:Patient Education Patient Instructions Indication:Non-smoker Start:23-Feb-2020 Instruction Type:Provider Instructions for Treatment How to access health informa tion online Indication:BMI 26.0-26.9,adult Start:18-Jan-2020 Instruction Type:Patient Education How to access health informa tion online - Detail Indication:BMI 26.0-26.9,adult Start:18-Jan-2020 Instruction Type:Patient Education Patient Instructions Indication:BMI 26.0-26.9,adult Start:18-Jan-2020 Instruction Type:Provider Instructions for Treatment How to access health informa tion online Indication:BMI 26.0-26.9,adult Start:18-Jul-2019 Instruction Type:Patient Education How to access health informa tion online - Detail Indication:BMI 26.0-26.9,adult Start:18-Jul-2019 Instruction Type:Patient Education Patient Instructions Indication:BMI 26.0-26.9,adult Start:18-Jul-2019 Instruction Type:Provider Instructions for Treatment How to access health informa tion online Indication:Need for prophylactic vaccination and inoculation against influenza (Renamed from Need for immunization against influenza) Start:09-May-2019 Instruction Type:Patient Education How to access health informa tion online - Detail Indication:Need for prophylactic vaccination and inoculation against influenza (Renamed from Need for immunization against influenza) Start:09-May-2019 Instruction Type:Patient Education Patient Instructions Indication:Need for prophylactic vaccination and inoculation against influenza (Renamed from Need for immunization against influenza) Start:09-May-2019 Instruction Type:Provider Instructions for Treatment How to access health informa tion online Indication:Non-smoker Start:18-Apr-2019 Instruction Type:Patient Education How to access health informa tion online - Detail Indication:Non-smoker Start:18-Apr-2019 Instruction Type:Patient Education Patient Instructions Indication:Non-smoker Start:18-Apr-2019 Instruction Type:Provider Instructions for Treatment How to access health informa tion online Indication:Non-smoker Start:03-Mar-2019 Instruction Type:Patient Education How to access health informa tion online - Detail Indication:Non-smoker Start:03-Mar-2019 Instruction Type:Patient Education Patient Instructions Indication:Non-smoker Start:03-Mar-2019 Instruction Type:Provider Instructions for Treatment How to access health informa tion online Indication:Non-smoker Start:17-Jan-2019 Instruction Type:Patient Education How to access health informa tion online - Detail Indication:Non-smoker Start:17-Jan-2019 Instruction Type:Patient Education Patient Instructions Indication:Non-smoker Start:17-Jan-2019 Instruction Type:Provider Instructions for Treatment How to access health informa tion online Indication:Non-smoker Start:15-Jul-2018 Instruction Type:Patient Education How to access health informa tion online - Detail Indication:Non-smoker Start:15-Jul-2018 Instruction Type:Patient Education Patient Instructions Indication:Non-smoker Start:15-Jul-2018 Instruction Type:Provider Instructions for Treatment How to access health informa tion online Indication:Non-smoker Start:01-Feb-2018 Instruction Type:Patient Education How to access health informa tion online - Detail Indication:Non-smoker Start:01-Feb-2018 Instruction Type:Patient Education Patient Instructions Indication:Non-smoker Start:01-Feb-2018 Instruction Type:Provider Instructions for Treatment How to access health informa tion online - Detail Indication:Non-smoker Start:31-Dec-2017 Instruction Type:Patient Education How to access health informa tion online Indication:Non-smoker Start:31-Dec-2017 Instruction Type:Patient Education Patient Instructions Indication:Non-smoker Start:31-Dec-2017 Instruction Type:Provider Instructions for Treatment How to access health informa tion online Indication:Non-smoker Start:15-Sep-2017 Instruction Type:Patient Education How to access health informa tion online - Detail Indication:Non-smoker Start:15-Sep-2017 Instruction Type:Patient Education Patient Instructions Indication:Non-smoker Start:15-Sep-2017 Instruction Type:Provider Instructions for Treatment How to access health informa tion online Indication:BMI 30.0-30.9,adult Start:04-Sep-2017 Instruction Type:Patient Education How to access health informa tion online - Detail Indication:BMI 30.0-30.9,adult Start:04-Sep-2017 Instruction Type:Patient Education Patient Instructions Indication:BMI 30.0-30.9,adult Start:04-Sep-2017 Instruction Type:Provider Instructions for Treatment [facility]; [facility] Work Phone: Instructions* Name Dates Details Patient Instructions Indication:BMI 26.0-26.9,adult Start:13-Feb-2021 Instruction Type:Provider Instructions for Treatment How to Access Health Informa tion Online using Patient Portal and [employer] Apps Indication:BMI 26.0-26.9,adult Start:13-Feb-2021 Instruction Type:Patient Education Patient Instructions Indication:Non-smoker Start:23-Oct-2020 Instruction Type:Provider Instructions for Treatment How to Access Health Informa tion Online using Patient Portal and [employer] Apps Indication:Non-smoker Start:23-Oct-2020 Instruction Type:Patient Education Patient Instructions Indication:Non-smoker Start:23-Jul-2020 Instruction Type:Provider Instructions for Treatment How to Access Health Informa tion Online using Patient Portal and [employer] Apps Indication:Non-smoker Start:23-Jul-2020 Instruction Type:Patient Education How to access health informa tion online Indication:Non-smoker Start:23-Feb-2020 Instruction Type:Patient Education How to access health informa tion online - Detail Indication:Non-smoker Start:23-Feb-2020 Instruction Type:Patient Education Patient Instructions Indication:Non-smoker Start:23-Feb-2020 Instruction Type:Provider Instructions for Treatment How to access health informa tion online Indication:BMI 26.0-26.9,adult Start:18-Jan-2020 Instruction Type:Patient Education How to access health informa tion online - Detail Indication:BMI 26.0-26.9,adult Start:18-Jan-2020 Instruction Type:Patient Education Patient Instructions Indication:BMI 26.0-26.9,adult Start:18-Jan-2020 Instruction Type:Provider Instructions for Treatment How to access health informa tion online Indication:BMI 26.0-26.9,adult Start:18-Jul-2019 Instruction Type:Patient Education How to access health informa tion online - Detail Indication:BMI 26.0-26.9,adult Start:18-Jul-2019 Instruction Type:Patient Education Patient Instructions Indication:BMI 26.0-26.9,adult Start:18-Jul-2019 Instruction Type:Provider Instructions for Treatment How to access health informa tion online Indication:Need for prophylactic vaccination and inoculation against influenza (Renamed from Need for immunization against influenza) Start:09-May-2019 Instruction Type:Patient Education How to access health informa tion online - Detail Indication:Need for prophylactic vaccination and inoculation against influenza (Renamed from Need for immunization against influenza) Start:09-May-2019 Instruction Type:Patient Education Patient Instructions Indication:Need for prophylactic vaccination and inoculation against influenza (Renamed from Need for immunization against influenza) Start:09-May-2019 Instruction Type:Provider Instructions for Treatment How to access health informa tion online Indication:Non-smoker Start:18-Apr-2019 Instruction Type:Patient Education How to access health informa tion online - Detail Indication:Non-smoker Start:18-Apr-2019 Instruction Type:Patient Education Patient Instructions Indication:Non-smoker Start:18-Apr-2019 Instruction Type:Provider Instructions for Treatment How to access health informa tion online Indication:Non-smoker Start:03-Mar-2019 Instruction Type:Patient Education How to access health informa tion online - Detail Indication:Non-smoker Start:03-Mar-2019 Instruction Type:Patient Education Patient Instructions Indication:Non-smoker Start:03-Mar-2019 Instruction Type:Provider Instructions for Treatment How to access health informa tion online Indication:Non-smoker Start:17-Jan-2019 Instruction Type:Patient Education How to access health informa tion online - Detail Indication:Non-smoker Start:17-Jan-2019 Instruction Type:Patient Education Patient Instructions Indication:Non-smoker Start:17-Jan-2019 Instruction Type:Provider Instructions for Treatment How to access health informa tion online Indication:Non-smoker Start:15-Jul-2018 Instruction Type:Patient Education How to access health informa tion online - Detail Indication:Non-smoker Start:15-Jul-2018 Instruction Type:Patient Education Patient Instructions Indication:Non-smoker Start:15-Jul-2018 Instruction Type:Provider Instructions for Treatment How to access health informa tion online Indication:Non-smoker Start:01-Feb-2018 Instruction Type:Patient Education How to access health informa tion online - Detail Indication:Non-smoker Start:01-Feb-2018 Instruction Type:Patient Education Patient Instructions Indication:Non-smoker Start:01-Feb-2018 Instruction Type:Provider Instructions for Treatment How to access health informa tion online - Detail Indication:Non-smoker Start:31-Dec-2017 Instruction Type:Patient Education How to access health informa tion online Indication:Non-smoker Start:31-Dec-2017 Instruction Type:Patient Education Patient Instructions Indication:Non-smoker Start:31-Dec-2017 Instruction Type:Provider Instructions for Treatment How to access health informa tion online Indication:Non-smoker Start:15-Sep-2017 Instruction Type:Patient Education How to access health informa tion online - Detail Indication:Non-smoker Start:15-Sep-2017 Instruction Type:Patient Education Patient Instructions Indication:Non-smoker Start:15-Sep-2017 Instruction Type:Provider Instructions for Treatment How to access health informa tion online Indication:BMI 30.0-30.9,adult Start:04-Sep-2017 Instruction Type:Patient Education How to access health informa tion online - Detail Indication:BMI 30.0-30.9,adult Start:04-Sep-2017 Instruction Type:Patient Education Patient Instructions Indication:BMI 30.0-30.9,adult Start:04-Sep-2017 Instruction Type:Provider Instructions for Treatment [facility]; [facility] Work Phone: Instructions* Name Dates Details Patient Instructions Indication:BMI 26.0-26.9,adult Start:13-Feb-2021 Instruction Type:Provider Instructions for Treatment How to Access Health Informa tion Online using Patient Portal and [employer] Apps Indication:BMI 26.0-26.9,adult Start:13-Feb-2021 Instruction Type:Patient Education Patient Instructions Indication:Non-smoker Start:23-Oct-2020 Instruction Type:Provider Instructions for Treatment How to Access Health Informa tion Online using Patient Portal and [employer] Apps Indication:Non-smoker Start:23-Oct-2020 Instruction Type:Patient Education Patient Instructions Indication:Non-smoker Start:23-Jul-2020 Instruction Type:Provider Instructions for Treatment How to Access Health Informa tion Online using Patient Portal and [employer] Apps Indication:Non-smoker Start:23-Jul-2020 Instruction Type:Patient Education How to access health informa tion online Indication:Non-smoker Start:23-Feb-2020 Instruction Type:Patient Education How to access health informa tion online - Detail Indication:Non-smoker Start:23-Feb-2020 Instruction Type:Patient Education Patient Instructions Indication:Non-smoker Start:23-Feb-2020 Instruction Type:Provider Instructions for Treatment How to access health informa tion online Indication:BMI 26.0-26.9,adult Start:18-Jan-2020 Instruction Type:Patient Education How to access health informa tion online - Detail Indication:BMI 26.0-26.9,adult Start:18-Jan-2020 Instruction Type:Patient Education Patient Instructions Indication:BMI 26.0-26.9,adult Start:18-Jan-2020 Instruction Type:Provider Instructions for Treatment How to access health informa tion online Indication:BMI 26.0-26.9,adult Start:18-Jul-2019 Instruction Type:Patient Education How to access health informa tion online - Detail Indication:BMI 26.0-26.9,adult Start:18-Jul-2019 Instruction Type:Patient Education Patient Instructions Indication:BMI 26.0-26.9,adult Start:18-Jul-2019 Instruction Type:Provider Instructions for Treatment How to access health informa tion online Indication:Need for prophylactic vaccination and inoculation against influenza (Renamed from Need for immunization against influenza) Start:09-May-2019 Instruction Type:Patient Education How to access health informa tion online - Detail Indication:Need for prophylactic vaccination and inoculation against influenza (Renamed from Need for immunization against influenza) Start:09-May-2019 Instruction Type:Patient Education Patient Instructions Indication:Need for prophylactic vaccination and inoculation against influenza (Renamed from Need for immunization against influenza) Start:09-May-2019 Instruction Type:Provider Instructions for Treatment How to access health informa tion online Indication:Non-smoker Start:18-Apr-2019 Instruction Type:Patient Education How to access health informa tion online - Detail Indication:Non-smoker Start:18-Apr-2019 Instruction Type:Patient Education Patient Instructions Indication:Non-smoker Start:18-Apr-2019 Instruction Type:Provider Instructions for Treatment How to access health informa tion online Indication:Non-smoker Start:03-Mar-2019 Instruction Type:Patient Education How to access health informa tion online - Detail Indication:Non-smoker Start:03-Mar-2019 Instruction Type:Patient Education Patient Instructions Indication:Non-smoker Start:03-Mar-2019 Instruction Type:Provider Instructions for Treatment How to access health informa tion online Indication:Non-smoker Start:17-Jan-2019 Instruction Type:Patient Education How to access health informa tion online - Detail Indication:Non-smoker Start:17-Jan-2019 Instruction Type:Patient Education Patient Instructions Indication:Non-smoker Start:17-Jan-2019 Instruction Type:Provider Instructions for Treatment How to access health informa tion online Indication:Non-smoker Start:15-Jul-2018 Instruction Type:Patient Education How to access health informa tion online - Detail Indication:Non-smoker Start:15-Jul-2018 Instruction Type:Patient Education Patient Instructions Indication:Non-smoker Start:15-Jul-2018 Instruction Type:Provider Instructions for Treatment How to access health informa tion online Indication:Non-smoker Start:01-Feb-2018 Instruction Type:Patient Education How to access health informa tion online - Detail Indication:Non-smoker Start:01-Feb-2018 Instruction Type:Patient Education Patient Instructions Indication:Non-smoker Start:01-Feb-2018 Instruction Type:Provider Instructions for Treatment How to access health informa tion online - Detail Indication:Non-smoker Start:31-Dec-2017 Instruction Type:Patient Education How to access health informa tion online Indication:Non-smoker Start:31-Dec-2017 Instruction Type:Patient Education Patient Instructions Indication:Non-smoker Start:31-Dec-2017 Instruction Type:Provider Instructions for Treatment How to access health informa tion online Indication:Non-smoker Start:15-Sep-2017 Instruction Type:Patient Education How to access health informa tion online - Detail Indication:Non-smoker Start:15-Sep-2017 Instruction Type:Patient Education Patient Instructions Indication:Non-smoker Start:15-Sep-2017 Instruction Type:Provider Instructions for Treatment How to access health informa tion online Indication:BMI 30.0-30.9,adult Start:04-Sep-2017 Instruction Type:Patient Education How to access health informa tion online - Detail Indication:BMI 30.0-30.9,adult Start:04-Sep-2017 Instruction Type:Patient Education Patient Instructions Indication:BMI 30.0-30.9,adult Start:04-Sep-2017 Instruction Type:Provider Instructions for Treatment [facility]; [facility] Work Phone: Instructions* Name Dates Details Patient Instructions Indication:BMI 26.0-26.9,adult Start:15-Aug-2021 Instruction Type:Provider Instructions for Treatment How to Access Health Informa tion Online using Patient Portal and [employer] Apps Indication:BMI 26.0-26.9,adult Start:15-Aug-2021 Instruction Type:Patient Education Patient Instructions Indication:BMI 26.0-26.9,adult Start:13-Feb-2021 Instruction Type:Provider Instructions for Treatment How to Access Health Informa tion Online using Patient Portal and [employer] Apps Indication:BMI 26.0-26.9,adult Start:13-Feb-2021 Instruction Type:Patient Education Patient Instructions Indication:Non-smoker Start:23-Oct-2020 Instruction Type:Provider Instructions for Treatment How to Access Health Informa tion Online using Patient Portal and [employer] Apps Indication:Non-smoker Start:23-Oct-2020 Instruction Type:Patient Education Patient Instructions Indication:Non-smoker Start:23-Jul-2020 Instruction Type:Provider Instructions for Treatment How to Access Health Informa tion Online using Patient Portal and [employer] Apps Indication:Non-smoker Start:23-Jul-2020 Instruction Type:Patient Education How to access health informa tion online Indication:Non-smoker Start:23-Feb-2020 Instruction Type:Patient Education How to access health informa tion online - Detail Indication:Non-smoker Start:23-Feb-2020 Instruction Type:Patient Education Patient Instructions Indication:Non-smoker Start:23-Feb-2020 Instruction Type:Provider Instructions for Treatment How to access health informa tion online Indication:BMI 26.0-26.9,adult Start:18-Jan-2020 Instruction Type:Patient Education How to access health informa tion online - Detail Indication:BMI 26.0-26.9,adult Start:18-Jan-2020 Instruction Type:Patient Education Patient Instructions Indication:BMI 26.0-26.9,adult Start:18-Jan-2020 Instruction Type:Provider Instructions for Treatment How to access health informa tion online Indication:BMI 26.0-26.9,adult Start:18-Jul-2019 Instruction Type:Patient Education How to access health informa tion online - Detail Indication:BMI 26.0-26.9,adult Start:18-Jul-2019 Instruction Type:Patient Education Patient Instructions Indication:BMI 26.0-26.9,adult Start:18-Jul-2019 Instruction Type:Provider Instructions for Treatment How to access health informa tion online Indication:Need for prophylactic vaccination and inoculation against influenza (Renamed from Need for immunization against influenza) Start:09-May-2019 Instruction Type:Patient Education How to access health informa tion online - Detail Indication:Need for prophylactic vaccination and inoculation against influenza (Renamed from Need for immunization against influenza) Start:09-May-2019 Instruction Type:Patient Education Patient Instructions Indication:Need for prophylactic vaccination and inoculation against influenza (Renamed from Need for immunization against influenza) Start:09-May-2019 Instruction Type:Provider Instructions for Treatment How to access health informa tion online Indication:Non-smoker Start:18-Apr-2019 Instruction Type:Patient Education How to access health informa tion online - Detail Indication:Non-smoker Start:18-Apr-2019 Instruction Type:Patient Education Patient Instructions Indication:Non-smoker Start:18-Apr-2019 Instruction Type:Provider Instructions for Treatment How to access health informa tion online Indication:Non-smoker Start:03-Mar-2019 Instruction Type:Patient Education How to access health informa tion online - Detail Indication:Non-smoker Start:03-Mar-2019 Instruction Type:Patient Education Patient Instructions Indication:Non-smoker Start:03-Mar-2019 Instruction Type:Provider Instructions for Treatment How to access health informa tion online Indication:Non-smoker Start:17-Jan-2019 Instruction Type:Patient Education How to access health informa tion online - Detail Indication:Non-smoker Start:17-Jan-2019 Instruction Type:Patient Education Patient Instructions Indication:Non-smoker Start:17-Jan-2019 Instruction Type:Provider Instructions for Treatment How to access health informa tion online Indication:Non-smoker Start:15-Jul-2018 Instruction Type:Patient Education How to access health informa tion online - Detail Indication:Non-smoker Start:15-Jul-2018 Instruction Type:Patient Education Patient Instructions Indication:Non-smoker Start:15-Jul-2018 Instruction Type:Provider Instructions for Treatment How to access health informa tion online Indication:Non-smoker Start:01-Feb-2018 Instruction Type:Patient Education How to access health informa tion online - Detail Indication:Non-smoker Start:01-Feb-2018 Instruction Type:Patient Education Patient Instructions Indication:Non-smoker Start:01-Feb-2018 Instruction Type:Provider Instructions for Treatment How to access health informa tion online - Detail Indication:Non-smoker Start:31-Dec-2017 Instruction Type:Patient Education How to access health informa tion online Indication:Non-smoker Start:31-Dec-2017 Instruction Type:Patient Education Patient Instructions Indication:Non-smoker Start:31-Dec-2017 Instruction Type:Provider Instructions for Treatment How to access health informa tion online Indication:Non-smoker Start:15-Sep-2017 Instruction Type:Patient Education How to access health informa tion online - Detail Indication:Non-smoker Start:15-Sep-2017 Instruction Type:Patient Education Patient Instructions Indication:Non-smoker Start:15-Sep-2017 Instruction Type:Provider Instructions for Treatment How to access health informa tion online Indication:BMI 30.0-30.9,adult Start:04-Sep-2017 Instruction Type:Patient Education How to access health informa tion online - Detail Indication:BMI 30.0-30.9,adult Start:04-Sep-2017 Instruction Type:Patient Education Patient Instructions Indication:BMI 30.0-30.9,adult Start:04-Sep-2017 Instruction Type:Provider Instructions for Treatment [facility]; [facility] Work Phone: Instructions* Name Dates Details Patient Instructions Indication:BMI 26.0-26.9,adult Start:15-Aug-2021 Instruction Type:Provider Instructions for Treatment How to Access Health Informa tion Online using Patient Portal and [employer] Apps Indication:BMI 26.0-26.9,adult Start:15-Aug-2021 Instruction Type:Patient Education Patient Instructions Indication:BMI 26.0-26.9,adult Start:13-Feb-2021 Instruction Type:Provider Instructions for Treatment How to Access Health Informa tion Online using Patient Portal and [employer] Apps Indication:BMI 26.0-26.9,adult Start:13-Feb-2021 Instruction Type:Patient Education Patient Instructions Indication:Non-smoker Start:23-Oct-2020 Instruction Type:Provider Instructions for Treatment How to Access Health Informa tion Online using Patient Portal and [employer] Apps Indication:Non-smoker Start:23-Oct-2020 Instruction Type:Patient Education Patient Instructions Indication:Non-smoker Start:23-Jul-2020 Instruction Type:Provider Instructions for Treatment How to Access Health Informa tion Online using Patient Portal and [employer] Apps Indication:Non-smoker Start:23-Jul-2020 Instruction Type:Patient Education How to access health informa tion online Indication:Non-smoker Start:23-Feb-2020 Instruction Type:Patient Education How to access health informa tion online - Detail Indication:Non-smoker Start:23-Feb-2020 Instruction Type:Patient Education Patient Instructions Indication:Non-smoker Start:23-Feb-2020 Instruction Type:Provider Instructions for Treatment How to access health informa tion online Indication:BMI 26.0-26.9,adult Start:18-Jan-2020 Instruction Type:Patient Education How to access health informa tion online - Detail Indication:BMI 26.0-26.9,adult Start:18-Jan-2020 Instruction Type:Patient Education Patient Instructions Indication:BMI 26.0-26.9,adult Start:18-Jan-2020 Instruction Type:Provider Instructions for Treatment How to access health informa tion online Indication:BMI 26.0-26.9,adult Start:18-Jul-2019 Instruction Type:Patient Education How to access health informa tion online - Detail Indication:BMI 26.0-26.9,adult Start:18-Jul-2019 Instruction Type:Patient Education Patient Instructions Indication:BMI 26.0-26.9,adult Start:18-Jul-2019 Instruction Type:Provider Instructions for Treatment How to access health informa tion online Indication:Need for prophylactic vaccination and inoculation against influenza (Renamed from Need for immunization against influenza) Start:09-May-2019 Instruction Type:Patient Education How to access health informa tion online - Detail Indication:Need for prophylactic vaccination and inoculation against influenza (Renamed from Need for immunization against influenza) Start:09-May-2019 Instruction Type:Patient Education Patient Instructions Indication:Need for prophylactic vaccination and inoculation against influenza (Renamed from Need for immunization against influenza) Start:09-May-2019 Instruction Type:Provider Instructions for Treatment How to access health informa tion online Indication:Non-smoker Start:18-Apr-2019 Instruction Type:Patient Education How to access health informa tion online - Detail Indication:Non-smoker Start:18-Apr-2019 Instruction Type:Patient Education Patient Instructions Indication:Non-smoker Start:18-Apr-2019 Instruction Type:Provider Instructions for Treatment How to access health informa tion online Indication:Non-smoker Start:03-Mar-2019 Instruction Type:Patient Education How to access health informa tion online - Detail Indication:Non-smoker Start:03-Mar-2019 Instruction Type:Patient Education Patient Instructions Indication:Non-smoker Start:03-Mar-2019 Instruction Type:Provider Instructions for Treatment How to access health informa tion online Indication:Non-smoker Start:17-Jan-2019 Instruction Type:Patient Education How to access health informa tion online - Detail Indication:Non-smoker Start:17-Jan-2019 Instruction Type:Patient Education Patient Instructions Indication:Non-smoker Start:17-Jan-2019 Instruction Type:Provider Instructions for Treatment How to access health informa tion online Indication:Non-smoker Start:15-Jul-2018 Instruction Type:Patient Education How to access health informa tion online - Detail Indication:Non-smoker Start:15-Jul-2018 Instruction Type:Patient Education Patient Instructions Indication:Non-smoker Start:15-Jul-2018 Instruction Type:Provider Instructions for Treatment How to access health informa tion online Indication:Non-smoker Start:01-Feb-2018 Instruction Type:Patient Education How to access health informa tion online - Detail Indication:Non-smoker Start:01-Feb-2018 Instruction Type:Patient Education Patient Instructions Indication:Non-smoker Start:01-Feb-2018 Instruction Type:Provider Instructions for Treatment How to access health informa tion online - Detail Indication:Non-smoker Start:31-Dec-2017 Instruction Type:Patient Education How to access health informa tion online Indication:Non-smoker Start:31-Dec-2017 Instruction Type:Patient Education Patient Instructions Indication:Non-smoker Start:31-Dec-2017 Instruction Type:Provider Instructions for Treatment How to access health informa tion online Indication:Non-smoker Start:15-Sep-2017 Instruction Type:Patient Education How to access health informa tion online - Detail Indication:Non-smoker Start:15-Sep-2017 Instruction Type:Patient Education Patient Instructions Indication:Non-smoker Start:15-Sep-2017 Instruction Type:Provider Instructions for Treatment How to access health informa tion online Indication:BMI 30.0-30.9,adult Start:04-Sep-2017 Instruction Type:Patient Education How to access health informa tion online - Detail Indication:BMI 30.0-30.9,adult Start:04-Sep-2017 Instruction Type:Patient Education Patient Instructions Indication:BMI 30.0-30.9,adult Start:04-Sep-2017 Instruction Type:Provider Instructions for Treatment [facility]; [facility] Work Phone: Instructions* Name Dates Details Patient Instructions Indication:Non-smoker Start:26-Feb-2022 Instruction Type:Provider Instructions for Treatment How to Access Health Informa tion Online using Patient Portal and [employer] Apps Indication:Non-smoker Start:26-Feb-2022 Instruction Type:Patient Education Patient Instructions Indication:BMI 26.0-26.9,adult Start:15-Aug-2021 Instruction Type:Provider Instructions for Treatment How to Access Health Informa tion Online using Patient Portal and [employer] Apps Indication:BMI 26.0-26.9,adult Start:15-Aug-2021 Instruction Type:Patient Education Patient Instructions Indication:BMI 26.0-26.9,adult Start:13-Feb-2021 Instruction Type:Provider Instructions for Treatment How to Access Health Informa tion Online using Patient Portal and [employer] Apps Indication:BMI 26.0-26.9,adult Start:13-Feb-2021 Instruction Type:Patient Education Patient Instructions Indication:Non-smoker Start:23-Oct-2020 Instruction Type:Provider Instructions for Treatment How to Access Health Informa tion Online using Patient Portal and [employer] Apps Indication:Non-smoker Start:23-Oct-2020 Instruction Type:Patient Education Patient Instructions Indication:Non-smoker Start:23-Jul-2020 Instruction Type:Provider Instructions for Treatment How to Access Health Informa tion Online using Patient Portal and [employer] Apps Indication:Non-smoker Start:23-Jul-2020 Instruction Type:Patient Education How to access health informa tion online Indication:Non-smoker Start:23-Feb-2020 Instruction Type:Patient Education How to access health informa tion online - Detail Indication:Non-smoker Start:23-Feb-2020 Instruction Type:Patient Education Patient Instructions Indication:Non-smoker Start:23-Feb-2020 Instruction Type:Provider Instructions for Treatment How to access health informa tion online Indication:BMI 26.0-26.9,adult Start:18-Jan-2020 Instruction Type:Patient Education How to access health informa tion online - Detail Indication:BMI 26.0-26.9,adult Start:18-Jan-2020 Instruction Type:Patient Education Patient Instructions Indication:BMI 26.0-26.9,adult Start:18-Jan-2020 Instruction Type:Provider Instructions for Treatment How to access health informa tion online Indication:BMI 26.0-26.9,adult Start:18-Jul-2019 Instruction Type:Patient Education How to access health informa tion online - Detail Indication:BMI 26.0-26.9,adult Start:18-Jul-2019 Instruction Type:Patient Education Patient Instructions Indication:BMI 26.0-26.9,adult Start:18-Jul-2019 Instruction Type:Provider Instructions for Treatment How to access health informa tion online Indication:Need for prophylactic vaccination and inoculation against influenza (Renamed from Need for immunization against influenza) Start:09-May-2019 Instruction Type:Patient Education How to access health informa tion online - Detail Indication:Need for prophylactic vaccination and inoculation against influenza (Renamed from Need for immunization against influenza) Start:09-May-2019 Instruction Type:Patient Education Patient Instructions Indication:Need for prophylactic vaccination and inoculation against influenza (Renamed from Need for immunization against influenza) Start:09-May-2019 Instruction Type:Provider Instructions for Treatment How to access health informa tion online Indication:Non-smoker Start:18-Apr-2019 Instruction Type:Patient Education How to access health informa tion online - Detail Indication:Non-smoker Start:18-Apr-2019 Instruction Type:Patient Education Patient Instructions Indication:Non-smoker Start:18-Apr-2019 Instruction Type:Provider Instructions for Treatment How to access health informa tion online Indication:Non-smoker Start:03-Mar-2019 Instruction Type:Patient Education How to access health informa tion online - Detail Indication:Non-smoker Start:03-Mar-2019 Instruction Type:Patient Education Patient Instructions Indication:Non-smoker Start:03-Mar-2019 Instruction Type:Provider Instructions for Treatment How to access health informa tion online Indication:Non-smoker Start:17-Jan-2019 Instruction Type:Patient Education How to access health informa tion online - Detail Indication:Non-smoker Start:17-Jan-2019 Instruction Type:Patient Education Patient Instructions Indication:Non-smoker Start:17-Jan-2019 Instruction Type:Provider Instructions for Treatment How to access health informa tion online Indication:Non-smoker Start:15-Jul-2018 Instruction Type:Patient Education How to access health informa tion online - Detail Indication:Non-smoker Start:15-Jul-2018 Instruction Type:Patient Education Patient Instructions Indication:Non-smoker Start:15-Jul-2018 Instruction Type:Provider Instructions for Treatment How to access health informa tion online Indication:Non-smoker Start:01-Feb-2018 Instruction Type:Patient Education How to access health informa tion online - Detail Indication:Non-smoker Start:01-Feb-2018 Instruction Type:Patient Education Patient Instructions Indication:Non-smoker Start:01-Feb-2018 Instruction Type:Provider Instructions for Treatment How to access health informa tion online - Detail Indication:Non-smoker Start:31-Dec-2017 Instruction Type:Patient Education How to access health informa tion online Indication:Non-smoker Start:31-Dec-2017 Instruction Type:Patient Education Patient Instructions Indication:Non-smoker Start:31-Dec-2017 Instruction Type:Provider Instructions for Treatment How to access health informa tion online Indication:Non-smoker Start:15-Sep-2017 Instruction Type:Patient Education How to access health informa tion online - Detail Indication:Non-smoker Start:15-Sep-2017 Instruction Type:Patient Education Patient Instructions Indication:Non-smoker Start:15-Sep-2017 Instruction Type:Provider Instructions for Treatment How to access health informa tion online Indication:BMI 30.0-30.9,adult Start:04-Sep-2017 Instruction Type:Patient Education How to access health informa tion online - Detail Indication:BMI 30.0-30.9,adult Start:04-Sep-2017 Instruction Type:Patient Education Patient Instructions Indication:BMI 30.0-30.9,adult Start:04-Sep-2017 Instruction Type:Provider Instructions for Treatment [facility]; [facility] Work Phone: Instructions* Name Dates Details Patient Instructions Indication:Non-smoker Start:17-Apr-2022 Instruction Type:Provider Instructions for Treatment How to Access Health Informa tion Online using Patient Portal and [employer] Apps Indication:Non-smoker Start:17-Apr-2022 Instruction Type:Patient Education Patient Instructions Indication:Non-smoker Start:26-Feb-2022 Instruction Type:Provider Instructions for Treatment How to Access Health Informa tion Online using Patient Portal and [employer] Apps Indication:Non-smoker Start:26-Feb-2022 Instruction Type:Patient Education Patient Instructions Indication:BMI 26.0-26.9,adult Start:15-Aug-2021 Instruction Type:Provider Instructions for Treatment How to Access Health Informa tion Online using Patient Portal and [employer] Apps Indication:BMI 26.0-26.9,adult Start:15-Aug-2021 Instruction Type:Patient Education Patient Instructions Indication:BMI 26.0-26.9,adult Start:13-Feb-2021 Instruction Type:Provider Instructions for Treatment How to Access Health Informa tion Online using Patient Portal and [employer] Apps Indication:BMI 26.0-26.9,adult Start:13-Feb-2021 Instruction Type:Patient Education Patient Instructions Indication:Non-smoker Start:23-Oct-2020 Instruction Type:Provider Instructions for Treatment How to Access Health Informa tion Online using Patient Portal and [employer] Apps Indication:Non-smoker Start:23-Oct-2020 Instruction Type:Patient Education Patient Instructions Indication:Non-smoker Start:23-Jul-2020 Instruction Type:Provider Instructions for Treatment How to Access Health Informa tion Online using Patient Portal and [employer] Apps Indication:Non-smoker Start:23-Jul-2020 Instruction Type:Patient Education How to access health informa tion online Indication:Non-smoker Start:23-Feb-2020 Instruction Type:Patient Education How to access health informa tion online - Detail Indication:Non-smoker Start:23-Feb-2020 Instruction Type:Patient Education Patient Instructions Indication:Non-smoker Start:23-Feb-2020 Instruction Type:Provider Instructions for Treatment How to access health informa tion online Indication:BMI 26.0-26.9,adult Start:18-Jan-2020 Instruction Type:Patient Education How to access health informa tion online - Detail Indication:BMI 26.0-26.9,adult Start:18-Jan-2020 Instruction Type:Patient Education Patient Instructions Indication:BMI 26.0-26.9,adult Start:18-Jan-2020 Instruction Type:Provider Instructions for Treatment How to access health informa tion online Indication:BMI 26.0-26.9,adult Start:18-Jul-2019 Instruction Type:Patient Education How to access health informa tion online - Detail Indication:BMI 26.0-26.9,adult Start:18-Jul-2019 Instruction Type:Patient Education Patient Instructions Indication:BMI 26.0-26.9,adult Start:18-Jul-2019 Instruction Type:Provider Instructions for Treatment How to access health informa tion online Indication:Need for prophylactic vaccination and inoculation against influenza (Renamed from Need for immunization against influenza) Start:09-May-2019 Instruction Type:Patient Education How to access health informa tion online - Detail Indication:Need for prophylactic vaccination and inoculation against influenza (Renamed from Need for immunization against influenza) Start:09-May-2019 Instruction Type:Patient Education Patient Instructions Indication:Need for prophylactic vaccination and inoculation against influenza (Renamed from Need for immunization against influenza) Start:09-May-2019 Instruction Type:Provider Instructions for Treatment How to access health informa tion online Indication:Non-smoker Start:18-Apr-2019 Instruction Type:Patient Education How to access health informa tion online - Detail Indication:Non-smoker Start:18-Apr-2019 Instruction Type:Patient Education Patient Instructions Indication:Non-smoker Start:18-Apr-2019 Instruction Type:Provider Instructions for Treatment How to access health informa tion online Indication:Non-smoker Start:03-Mar-2019 Instruction Type:Patient Education How to access health informa tion online - Detail Indication:Non-smoker Start:03-Mar-2019 Instruction Type:Patient Education Patient Instructions Indication:Non-smoker Start:03-Mar-2019 Instruction Type:Provider Instructions for Treatment How to access health informa tion online Indication:Non-smoker Start:17-Jan-2019 Instruction Type:Patient Education How to access health informa tion online - Detail Indication:Non-smoker Start:17-Jan-2019 Instruction Type:Patient Education Patient Instructions Indication:Non-smoker Start:17-Jan-2019 Instruction Type:Provider Instructions for Treatment How to access health informa tion online Indication:Non-smoker Start:15-Jul-2018 Instruction Type:Patient Education How to access health informa tion online - Detail Indication:Non-smoker Start:15-Jul-2018 Instruction Type:Patient Education Patient Instructions Indication:Non-smoker Start:15-Jul-2018 Instruction Type:Provider Instructions for Treatment How to access health informa tion online Indication:Non-smoker Start:01-Feb-2018 Instruction Type:Patient Education How to access health informa tion online - Detail Indication:Non-smoker Start:01-Feb-2018 Instruction Type:Patient Education Patient Instructions Indication:Non-smoker Start:01-Feb-2018 Instruction Type:Provider Instructions for Treatment How to access health informa tion online - Detail Indication:Non-smoker Start:31-Dec-2017 Instruction Type:Patient Education How to access health informa tion online Indication:Non-smoker Start:31-Dec-2017 Instruction Type:Patient Education Patient Instructions Indication:Non-smoker Start:31-Dec-2017 Instruction Type:Provider Instructions for Treatment How to access health informa tion online Indication:Non-smoker Start:15-Sep-2017 Instruction Type:Patient Education How to access health informa tion online - Detail Indication:Non-smoker Start:15-Sep-2017 Instruction Type:Patient Education Patient Instructions Indication:Non-smoker Start:15-Sep-2017 Instruction Type:Provider Instructions for Treatment How to access health informa tion online Indication:BMI 30.0-30.9,adult Start:04-Sep-2017 Instruction Type:Patient Education How to access health informa tion online - Detail Indication:BMI 30.0-30.9,adult Start:04-Sep-2017 Instruction Type:Patient Education Patient Instructions Indication:BMI 30.0-30.9,adult Start:04-Sep-2017 Instruction Type:Provider Instructions for Treatment [facility]; [facility] Work Phone: Instructions* Name Dates Details Patient Instructions Indication:Non-smoker Start:17-Apr-2022 Instruction Type:Provider Instructions for Treatment How to Access Health Informa tion Online using Patient Portal and [employer] Indication:Non-smoker Start:17-Apr-2022 Instruction Type:Patient Education Patient Instructions Indication:Non-smoker Start:26-Feb-2022 Instruction Type:Provider Instructions for Treatment How to Access Health Informa tion Online using Patient Portal and [employer] Apps Indication:Non-smoker Start:26-Feb-2022 Instruction Type:Patient Education Patient Instructions Indication:BMI 26.0-26.9,adult Start:15-Aug-2021 Instruction Type:Provider Instructions for Treatment How to Access Health Informa tion Online using Patient Portal and [employer] Apps Indication:BMI 26.0-26.9,adult Start:15-Aug-2021 Instruction Type:Patient Education Patient Instructions Indication:BMI 26.0-26.9,adult Start:13-Feb-2021 Instruction Type:Provider Instructions for Treatment How to Access Health Informa tion Online using Patient Portal and [employer] Indication:BMI 26.0-26.9,adult Start:13-Feb-2021 Instruction Type:Patient Education Patient Instructions Indication:Non-smoker Start:23-Oct-2020 Instruction Type:Provider Instructions for Treatment How to Access Health Informa tion Online using Patient Portal and [employer] Apps Indication:Non-smoker Start:23-Oct-2020 Instruction Type:Patient Education Patient Instructions Indication:Non-smoker Start:23-Jul-2020 Instruction Type:Provider Instructions for Treatment How to Access Health Informa tion Online using Patient Portal and [employer] Apps Indication:Non-smoker Start:23-Jul-2020 Instruction Type:Patient Education How to access health informa tion online Indication:Non-smoker Start:23-Feb-2020 Instruction Type:Patient Education How to access health informa tion online - Detail Indication:Non-smoker Start:23-Feb-2020 Instruction Type:Patient Education Patient Instructions Indication:Non-smoker Start:23-Feb-2020 Instruction Type:Provider Instructions for Treatment How to access health informa tion online Indication:BMI 26.0-26.9,adult Start:18-Jan-2020 Instruction Type:Patient Education How to access health informa tion online - Detail Indication:BMI 26.0-26.9,adult Start:18-Jan-2020 Instruction Type:Patient Education Patient Instructions Indication:BMI 26.0-26.9,adult Start:18-Jan-2020 Instruction Type:Provider Instructions for Treatment How to access health informa tion online Indication:BMI 26.0-26.9,adult Start:18-Jul-2019 Instruction Type:Patient Education How to access health informa tion online - Detail Indication:BMI 26.0-26.9,adult Start:18-Jul-2019 Instruction Type:Patient Education Patient Instructions Indication:BMI 26.0-26.9,adult Start:18-Jul-2019 Instruction Type:Provider Instructions for Treatment How to access health informa tion online Indication:Need for prophylactic vaccination and inoculation against influenza (Renamed from Need for immunization against influenza) Start:09-May-2019 Instruction Type:Patient Education How to access health informa tion online - Detail Indication:Need for prophylactic vaccination and inoculation against influenza (Renamed from Need for immunization against influenza) Start:09-May-2019 Instruction Type:Patient Education Patient Instructions Indication:Need for prophylactic vaccination and inoculation against influenza (Renamed from Need for immunization against influenza) Start:09-May-2019 Instruction Type:Provider Instructions for Treatment How to access health informa tion online Indication:Non-smoker Start:18-Apr-2019 Instruction Type:Patient Education How to access health informa tion online - Detail Indication:Non-smoker Start:18-Apr-2019 Instruction Type:Patient Education Patient Instructions Indication:Non-smoker Start:18-Apr-2019 Instruction Type:Provider Instructions for Treatment How to access health informa tion online Indication:Non-smoker Start:03-Mar-2019 Instruction Type:Patient Education How to access health informa tion online - Detail Indication:Non-smoker Start:03-Mar-2019 Instruction Type:Patient Education Patient Instructions Indication:Non-smoker Start:03-Mar-2019 Instruction Type:Provider Instructions for Treatment How to access health informa tion online Indication:Non-smoker Start:17-Jan-2019 Instruction Type:Patient Education How to access health informa tion online - Detail Indication:Non-smoker Start:17-Jan-2019 Instruction Type:Patient Education Patient Instructions Indication:Non-smoker Start:17-Jan-2019 Instruction Type:Provider Instructions for Treatment How to access health informa tion online Indication:Non-smoker Start:15-Jul-2018 Instruction Type:Patient Education How to access health informa tion online - Detail Indication:Non-smoker Start:15-Jul-2018 Instruction Type:Patient Education Patient Instructions Indication:Non-smoker Start:15-Jul-2018 Instruction Type:Provider Instructions for Treatment How to access health informa tion online Indication:Non-smoker Start:01-Feb-2018 Instruction Type:Patient Education How to access health informa tion online - Detail Indication:Non-smoker Start:01-Feb-2018 Instruction Type:Patient Education Patient Instructions Indication:Non-smoker Start:01-Feb-2018 Instruction Type:Provider Instructions for Treatment How to access health informa tion online - Detail Indication:Non-smoker Start:31-Dec-2017 Instruction Type:Patient Education How to access health informa tion online Indication:Non-smoker Start:31-Dec-2017 Instruction Type:Patient Education Patient Instructions Indication:Non-smoker Start:31-Dec-2017 Instruction Type:Provider Instructions for Treatment How to access health informa tion online Indication:Non-smoker Start:15-Sep-2017 Instruction Type:Patient Education How to access health informa tion online - Detail Indication:Non-smoker Start:15-Sep-2017 Instruction Type:Patient Education Patient Instructions Indication:Non-smoker Start:15-Sep-2017 Instruction Type:Provider Instructions for Treatment How to access health informa tion online Indication:BMI 30.0-30.9,adult Start:04-Sep-2017 Instruction Type:Patient Education How to access health informa tion online - Detail Indication:BMI 30.0-30.9,adult Start:04-Sep-2017 Instruction Type:Patient Education Patient Instructions Indication:BMI 30.0-30.9,adult Start:04-Sep-2017 Instruction Type:Provider Instructions for Treatment [facility]; [facility] Work Phone: Instructions* Name Dates Details Patient Instructions Indication:Non-smoker Start:17-Apr-2022 Instruction Type:Provider Instructions for Treatment How to Access Health Informa tion Online using Patient Portal and [employer] Apps Indication:Non-smoker Start:17-Apr-2022 Instruction Type:Patient Education Patient Instructions Indication:Non-smoker Start:26-Feb-2022 Instruction Type:Provider Instructions for Treatment How to Access Health Informa tion Online using Patient Portal and [employer] Apps Indication:Non-smoker Start:26-Feb-2022 Instruction Type:Patient Education Patient Instructions Indication:BMI 26.0-26.9,adult Start:15-Aug-2021 Instruction Type:Provider Instructions for Treatment How to Access Health Informa tion Online using Patient Portal and [employer] Apps Indication:BMI 26.0-26.9,adult Start:15-Aug-2021 Instruction Type:Patient Education Patient Instructions Indication:BMI 26.0-26.9,adult Start:13-Feb-2021 Instruction Type:Provider Instructions for Treatment How to Access Health Informa tion Online using Patient Portal and [employer] Apps Indication:BMI 26.0-26.9,adult Start:13-Feb-2021 Instruction Type:Patient Education Patient Instructions Indication:Non-smoker Start:23-Oct-2020 Instruction Type:Provider Instructions for Treatment How to Access Health Informa tion Online using Patient Portal and [employer] Apps Indication:Non-smoker Start:23-Oct-2020 Instruction Type:Patient Education Patient Instructions Indication:Non-smoker Start:23-Jul-2020 Instruction Type:Provider Instructions for Treatment How to Access Health Informa tion Online using Patient Portal and [employer] Apps Indication:Non-smoker Start:23-Jul-2020 Instruction Type:Patient Education How to access health informa tion online Indication:Non-smoker Start:23-Feb-2020 Instruction Type:Patient Education How to access health informa tion online - Detail Indication:Non-smoker Start:23-Feb-2020 Instruction Type:Patient Education Patient Instructions Indication:Non-smoker Start:23-Feb-2020 Instruction Type:Provider Instructions for Treatment How to access health informa tion online Indication:BMI 26.0-26.9,adult Start:18-Jan-2020 Instruction Type:Patient Education How to access health informa tion online - Detail Indication:BMI 26.0-26.9,adult Start:18-Jan-2020 Instruction Type:Patient Education Patient Instructions Indication:BMI 26.0-26.9,adult Start:18-Jan-2020 Instruction Type:Provider Instructions for Treatment How to access health informa tion online Indication:BMI 26.0-26.9,adult Start:18-Jul-2019 Instruction Type:Patient Education How to access health informa tion online - Detail Indication:BMI 26.0-26.9,adult Start:18-Jul-2019 Instruction Type:Patient Education Patient Instructions Indication:BMI 26.0-26.9,adult Start:18-Jul-2019 Instruction Type:Provider Instructions for Treatment How to access health informa tion online Indication:Need for prophylactic vaccination and inoculation against influenza (Renamed from Need for immunization against influenza) Start:09-May-2019 Instruction Type:Patient Education How to access health informa tion online - Detail Indication:Need for prophylactic vaccination and inoculation against influenza (Renamed from Need for immunization against influenza) Start:09-May-2019 Instruction Type:Patient Education Patient Instructions Indication:Need for prophylactic vaccination and inoculation against influenza (Renamed from Need for immunization against influenza) Start:09-May-2019 Instruction Type:Provider Instructions for Treatment How to access health informa tion online Indication:Non-smoker Start:18-Apr-2019 Instruction Type:Patient Education How to access health informa tion online - Detail Indication:Non-smoker Start:18-Apr-2019 Instruction Type:Patient Education Patient Instructions Indication:Non-smoker Start:18-Apr-2019 Instruction Type:Provider Instructions for Treatment How to access health informa tion online Indication:Non-smoker Start:03-Mar-2019 Instruction Type:Patient Education How to access health informa tion online - Detail Indication:Non-smoker Start:03-Mar-2019 Instruction Type:Patient Education Patient Instructions Indication:Non-smoker Start:03-Mar-2019 Instruction Type:Provider Instructions for Treatment How to access health informa tion online Indication:Non-smoker Start:17-Jan-2019 Instruction Type:Patient Education How to access health informa tion online - Detail Indication:Non-smoker Start:17-Jan-2019 Instruction Type:Patient Education Patient Instructions Indication:Non-smoker Start:17-Jan-2019 Instruction Type:Provider Instructions for Treatment How to access health informa tion online Indication:Non-smoker Start:15-Jul-2018 Instruction Type:Patient Education How to access health informa tion online - Detail Indication:Non-smoker Start:15-Jul-2018 Instruction Type:Patient Education Patient Instructions Indication:Non-smoker Start:15-Jul-2018 Instruction Type:Provider Instructions for Treatment How to access health informa tion online Indication:Non-smoker Start:01-Feb-2018 Instruction Type:Patient Education How to access health informa tion online - Detail Indication:Non-smoker Start:01-Feb-2018 Instruction Type:Patient Education Patient Instructions Indication:Non-smoker Start:01-Feb-2018 Instruction Type:Provider Instructions for Treatment How to access health informa tion online - Detail Indication:Non-smoker Start:31-Dec-2017 Instruction Type:Patient Education How to access health informa tion online Indication:Non-smoker Start:31-Dec-2017 Instruction Type:Patient Education Patient Instructions Indication:Non-smoker Start:31-Dec-2017 Instruction Type:Provider Instructions for Treatment How to access health informa tion online Indication:Non-smoker Start:15-Sep-2017 Instruction Type:Patient Education How to access health informa tion online - Detail Indication:Non-smoker Start:15-Sep-2017 Instruction Type:Patient Education Patient Instructions Indication:Non-smoker Start:15-Sep-2017 Instruction Type:Provider Instructions for Treatment How to access health informa tion online Indication:BMI 30.0-30.9,adult Start:04-Sep-2017 Instruction Type:Patient Education How to access health informa tion online - Detail Indication:BMI 30.0-30.9,adult Start:04-Sep-2017 Instruction Type:Patient Education Patient Instructions Indication:BMI 30.0-30.9,adult Start:04-Sep-2017 Instruction Type:Provider Instructions for Treatment [facility]; [facility] Work Phone: Instructions* Name Dates Details Patient Instructions Indication:Non-smoker Start:17-Apr-2022 Instruction Type:Provider Instructions for Treatment How to Access Health Informa tion Online using Patient Portal and [employer] Apps Indication:Non-smoker Start:17-Apr-2022 Instruction Type:Patient Education Patient Instructions Indication:Non-smoker Start:26-Feb-2022 Instruction Type:Provider Instructions for Treatment How to Access Health Informa tion Online using Patient Portal and [employer] Apps Indication:Non-smoker Start:26-Feb-2022 Instruction Type:Patient Education Patient Instructions Indication:BMI 26.0-26.9,adult Start:15-Aug-2021 Instruction Type:Provider Instructions for Treatment How to Access Health Informa tion Online using Patient Portal and [employer] Apps Indication:BMI 26.0-26.9,adult Start:15-Aug-2021 Instruction Type:Patient Education Patient Instructions Indication:BMI 26.0-26.9,adult Start:13-Feb-2021 Instruction Type:Provider Instructions for Treatment How to Access Health Informa tion Online using Patient Portal and [employer] Apps Indication:BMI 26.0-26.9,adult Start:13-Feb-2021 Instruction Type:Patient Education Patient Instructions Indication:Non-smoker Start:23-Oct-2020 Instruction Type:Provider Instructions for Treatment How to Access Health Informa tion Online using Patient Portal and [employer] Apps Indication:Non-smoker Start:23-Oct-2020 Instruction Type:Patient Education Patient Instructions Indication:Non-smoker Start:23-Jul-2020 Instruction Type:Provider Instructions for Treatment How to Access Health Informa tion Online using Patient Portal and [employer] Apps Indication:Non-smoker Start:23-Jul-2020 Instruction Type:Patient Education How to access health informa tion online Indication:Non-smoker Start:23-Feb-2020 Instruction Type:Patient Education How to access health informa tion online - Detail Indication:Non-smoker Start:23-Feb-2020 Instruction Type:Patient Education Patient Instructions Indication:Non-smoker Start:23-Feb-2020 Instruction Type:Provider Instructions for Treatment How to access health informa tion online Indication:BMI 26.0-26.9,adult Start:18-Jan-2020 Instruction Type:Patient Education How to access health informa tion online - Detail Indication:BMI 26.0-26.9,adult Start:18-Jan-2020 Instruction Type:Patient Education Patient Instructions Indication:BMI 26.0-26.9,adult Start:18-Jan-2020 Instruction Type:Provider Instructions for Treatment How to access health informa tion online Indication:BMI 26.0-26.9,adult Start:18-Jul-2019 Instruction Type:Patient Education How to access health informa tion online - Detail Indication:BMI 26.0-26.9,adult Start:18-Jul-2019 Instruction Type:Patient Education Patient Instructions Indication:BMI 26.0-26.9,adult Start:18-Jul-2019 Instruction Type:Provider Instructions for Treatment How to access health informa tion online Indication:Need for prophylactic vaccination and inoculation against influenza (Renamed from Need for immunization against influenza) Start:09-May-2019 Instruction Type:Patient Education How to access health informa tion online - Detail Indication:Need for prophylactic vaccination and inoculation against influenza (Renamed from Need for immunization against influenza) Start:09-May-2019 Instruction Type:Patient Education Patient Instructions Indication:Need for prophylactic vaccination and inoculation against influenza (Renamed from Need for immunization against influenza) Start:09-May-2019 Instruction Type:Provider Instructions for Treatment How to access health informa tion online Indication:Non-smoker Start:18-Apr-2019 Instruction Type:Patient Education How to access health informa tion online - Detail Indication:Non-smoker Start:18-Apr-2019 Instruction Type:Patient Education Patient Instructions Indication:Non-smoker Start:18-Apr-2019 Instruction Type:Provider Instructions for Treatment How to access health informa tion online Indication:Non-smoker Start:03-Mar-2019 Instruction Type:Patient Education How to access health informa tion online - Detail Indication:Non-smoker Start:03-Mar-2019 Instruction Type:Patient Education Patient Instructions Indication:Non-smoker Start:03-Mar-2019 Instruction Type:Provider Instructions for Treatment How to access health informa tion online Indication:Non-smoker Start:17-Jan-2019 Instruction Type:Patient Education How to access health informa tion online - Detail Indication:Non-smoker Start:17-Jan-2019 Instruction Type:Patient Education Patient Instructions Indication:Non-smoker Start:17-Jan-2019 Instruction Type:Provider Instructions for Treatment How to access health informa tion online Indication:Non-smoker Start:15-Jul-2018 Instruction Type:Patient Education How to access health informa tion online - Detail Indication:Non-smoker Start:15-Jul-2018 Instruction Type:Patient Education Patient Instructions Indication:Non-smoker Start:15-Jul-2018 Instruction Type:Provider Instructions for Treatment How to access health informa tion online Indication:Non-smoker Start:01-Feb-2018 Instruction Type:Patient Education How to access health informa tion online - Detail Indication:Non-smoker Start:01-Feb-2018 Instruction Type:Patient Education Patient Instructions Indication:Non-smoker Start:01-Feb-2018 Instruction Type:Provider Instructions for Treatment How to access health informa tion online - Detail Indication:Non-smoker Start:31-Dec-2017 Instruction Type:Patient Education How to access health informa tion online Indication:Non-smoker Start:31-Dec-2017 Instruction Type:Patient Education Patient Instructions Indication:Non-smoker Start:31-Dec-2017 Instruction Type:Provider Instructions for Treatment How to access health informa tion online Indication:Non-smoker Start:15-Sep-2017 Instruction Type:Patient Education How to access health informa tion online - Detail Indication:Non-smoker Start:15-Sep-2017 Instruction Type:Patient Education Patient Instructions Indication:Non-smoker Start:15-Sep-2017 Instruction Type:Provider Instructions for Treatment How to access health informa tion online Indication:BMI 30.0-30.9,adult Start:04-Sep-2017 Instruction Type:Patient Education How to access health informa tion online - Detail Indication:BMI 30.0-30.9,adult Start:04-Sep-2017 Instruction Type:Patient Education Patient Instructions Indication:BMI 30.0-30.9,adult Start:04-Sep-2017 Instruction Type:Provider Instructions for Treatment [facility]; [facility] Work Phone: Instructions* Name Dates Details Patient Instructions Indication:BMI 26.0-26.9,adult Start:07-Jul-2022 Instruction Type:Provider Instructions for Treatment How to Access Health Informa tion Online using Patient Portal and [employer] Indication:BMI 26.0-26.9,adult Start:07-Jul-2022 Instruction Type:Patient Education Patient Instructions Indication:Non-smoker Start:17-Apr-2022 Instruction Type:Provider Instructions for Treatment How to Access Health Informa tion Online using Patient Portal and [employer] Indication:Non-smoker Start:17-Apr-2022 Instruction Type:Patient Education Patient Instructions Indication:Non-smoker Start:26-Feb-2022 Instruction Type:Provider Instructions for Treatment How to Access Health Informa tion Online using Patient Portal and [employer] Apps Indication:Non-smoker Start:26-Feb-2022 Instruction Type:Patient Education Patient Instructions Indication:BMI 26.0-26.9,adult Start:15-Aug-2021 Instruction Type:Provider Instructions for Treatment How to Access Health Informa tion Online using Patient Portal and [employer] Indication:BMI 26.0-26.9,adult Start:15-Aug-2021 Instruction Type:Patient Education Patient Instructions Indication:BMI 26.0-26.9,adult Start:13-Feb-2021 Instruction Type:Provider Instructions for Treatment How to Access Health Informa tion Online using Patient Portal and [employer] Indication:BMI 26.0-26.9,adult Start:13-Feb-2021 Instruction Type:Patient Education Patient Instructions Indication:Non-smoker Start:23-Oct-2020 Instruction Type:Provider Instructions for Treatment How to Access Health Informa tion Online using Patient Portal and [employer] Indication:Non-smoker Start:23-Oct-2020 Instruction Type:Patient Education Patient Instructions Indication:Non-smoker Start:23-Jul-2020 Instruction Type:Provider Instructions for Treatment How to Access Health Informa tion Online using Patient Portal and [employer] Indication:Non-smoker Start:23-Jul-2020 Instruction Type:Patient Education How to access health informa tion online Indication:Non-smoker Start:23-Feb-2020 Instruction Type:Patient Education How to access health informa tion online - Detail Indication:Non-smoker Start:23-Feb-2020 Instruction Type:Patient Education Patient Instructions Indication:Non-smoker Start:23-Feb-2020 Instruction Type:Provider Instructions for Treatment How to access health informa tion online Indication:BMI 26.0-26.9,adult Start:18-Jan-2020 Instruction Type:Patient Education How to access health informa tion online - Detail Indication:BMI 26.0-26.9,adult Start:18-Jan-2020 Instruction Type:Patient Education Patient Instructions Indication:BMI 26.0-26.9,adult Start:18-Jan-2020 Instruction Type:Provider Instructions for Treatment How to access health informa tion online Indication:BMI 26.0-26.9,adult Start:18-Jul-2019 Instruction Type:Patient Education How to access health informa tion online - Detail Indication:BMI 26.0-26.9,adult Start:18-Jul-2019 Instruction Type:Patient Education Patient Instructions Indication:BMI 26.0-26.9,adult Start:18-Jul-2019 Instruction Type:Provider Instructions for Treatment How to access health informa tion online Indication:Need for prophylactic vaccination and inoculation against influenza (Renamed from Need for immunization against influenza) Start:09-May-2019 Instruction Type:Patient Education How to access health informa tion online - Detail Indication:Need for prophylactic vaccination and inoculation against influenza (Renamed from Need for immunization against influenza) Start:09-May-2019 Instruction Type:Patient Education Patient Instructions Indication:Need for prophylactic vaccination and inoculation against influenza (Renamed from Need for immunization against influenza) Start:09-May-2019 Instruction Type:Provider Instructions for Treatment How to access health informa tion online Indication:Non-smoker Start:18-Apr-2019 Instruction Type:Patient Education How to access health informa tion online - Detail Indication:Non-smoker Start:18-Apr-2019 Instruction Type:Patient Education Patient Instructions Indication:Non-smoker Start:18-Apr-2019 Instruction Type:Provider Instructions for Treatment How to access health informa tion online Indication:Non-smoker Start:03-Mar-2019 Instruction Type:Patient Education How to access health informa tion online - Detail Indication:Non-smoker Start:03-Mar-2019 Instruction Type:Patient Education Patient Instructions Indication:Non-smoker Start:03-Mar-2019 Instruction Type:Provider Instructions for Treatment How to access health informa tion online Indication:Non-smoker Start:17-Jan-2019 Instruction Type:Patient Education How to access health informa tion online - Detail Indication:Non-smoker Start:17-Jan-2019 Instruction Type:Patient Education Patient Instructions Indication:Non-smoker Start:17-Jan-2019 Instruction Type:Provider Instructions for Treatment How to access health informa tion online Indication:Non-smoker Start:15-Jul-2018 Instruction Type:Patient Education How to access health informa tion online - Detail Indication:Non-smoker Start:15-Jul-2018 Instruction Type:Patient Education Patient Instructions Indication:Non-smoker Start:15-Jul-2018 Instruction Type:Provider Instructions for Treatment How to access health informa tion online Indication:Non-smoker Start:01-Feb-2018 Instruction Type:Patient Education How to access health informa tion online - Detail Indication:Non-smoker Start:01-Feb-2018 Instruction Type:Patient Education Patient Instructions Indication:Non-smoker Start:01-Feb-2018 Instruction Type:Provider Instructions for Treatment How to access health informa tion online - Detail Indication:Non-smoker Start:31-Dec-2017 Instruction Type:Patient Education How to access health informa tion online Indication:Non-smoker Start:31-Dec-2017 Instruction Type:Patient Education Patient Instructions Indication:Non-smoker Start:31-Dec-2017 Instruction Type:Provider Instructions for Treatment How to access health informa tion online Indication:Non-smoker Start:15-Sep-2017 Instruction Type:Patient Education How to access health informa tion online - Detail Indication:Non-smoker Start:15-Sep-2017 Instruction Type:Patient Education Patient Instructions Indication:Non-smoker Start:15-Sep-2017 Instruction Type:Provider Instructions for Treatment How to access health informa tion online Indication:BMI 30.0-30.9,adult Start:04-Sep-2017 Instruction Type:Patient Education How to access health informa tion online - Detail Indication:BMI 30.0-30.9,adult Start:04-Sep-2017 Instruction Type:Patient Education Patient Instructions Indication:BMI 30.0-30.9,adult Start:04-Sep-2017 Instruction Type:Provider Instructions for Treatment [facility]; [facility] Work Phone: Instructions* Name Dates Details Patient Instructions Indication:BMI 26.0-26.9,adult Start:07-Jul-2022 Instruction Type:Provider Instructions for Treatment How to Access Health Informa tion Online using Patient Portal and [employer] Apps Indication:BMI 26.0-26.9,adult Start:07-Jul-2022 Instruction Type:Patient Education Patient Instructions Indication:Non-smoker Start:17-Apr-2022 Instruction Type:Provider Instructions for Treatment How to Access Health Informa tion Online using Patient Portal and [employer] Apps Indication:Non-smoker Start:17-Apr-2022 Instruction Type:Patient Education Patient Instructions Indication:Non-smoker Start:26-Feb-2022 Instruction Type:Provider Instructions for Treatment How to Access Health Informa tion Online using Patient Portal and [employer] Apps Indication:Non-smoker Start:26-Feb-2022 Instruction Type:Patient Education Patient Instructions Indication:BMI 26.0-26.9,adult Start:15-Aug-2021 Instruction Type:Provider Instructions for Treatment How to Access Health Informa tion Online using Patient Portal and [employer] Apps Indication:BMI 26.0-26.9,adult Start:15-Aug-2021 Instruction Type:Patient Education Patient Instructions Indication:BMI 26.0-26.9,adult Start:13-Feb-2021 Instruction Type:Provider Instructions for Treatment How to Access Health Informa tion Online using Patient Portal and [employer] Apps Indication:BMI 26.0-26.9,adult Start:13-Feb-2021 Instruction Type:Patient Education Patient Instructions Indication:Non-smoker Start:23-Oct-2020 Instruction Type:Provider Instructions for Treatment How to Access Health Informa tion Online using Patient Portal and [employer] Apps Indication:Non-smoker Start:23-Oct-2020 Instruction Type:Patient Education Patient Instructions Indication:Non-smoker Start:23-Jul-2020 Instruction Type:Provider Instructions for Treatment How to Access Health Informa tion Online using Patient Portal and [employer] Apps Indication:Non-smoker Start:23-Jul-2020 Instruction Type:Patient Education How to access health informa tion online Indication:Non-smoker Start:23-Feb-2020 Instruction Type:Patient Education How to access health informa tion online - Detail Indication:Non-smoker Start:23-Feb-2020 Instruction Type:Patient Education Patient Instructions Indication:Non-smoker Start:23-Feb-2020 Instruction Type:Provider Instructions for Treatment How to access health informa tion online Indication:BMI 26.0-26.9,adult Start:18-Jan-2020 Instruction Type:Patient Education How to access health informa tion online - Detail Indication:BMI 26.0-26.9,adult Start:18-Jan-2020 Instruction Type:Patient Education Patient Instructions Indication:BMI 26.0-26.9,adult Start:18-Jan-2020 Instruction Type:Provider Instructions for Treatment How to access health informa tion online Indication:BMI 26.0-26.9,adult Start:18-Jul-2019 Instruction Type:Patient Education How to access health informa tion online - Detail Indication:BMI 26.0-26.9,adult Start:18-Jul-2019 Instruction Type:Patient Education Patient Instructions Indication:BMI 26.0-26.9,adult Start:18-Jul-2019 Instruction Type:Provider Instructions for Treatment How to access health informa tion online Indication:Need for prophylactic vaccination and inoculation against influenza (Renamed from Need for immunization against influenza) Start:09-May-2019 Instruction Type:Patient Education How to access health informa tion online - Detail Indication:Need for prophylactic vaccination and inoculation against influenza (Renamed from Need for immunization against influenza) Start:09-May-2019 Instruction Type:Patient Education Patient Instructions Indication:Need for prophylactic vaccination and inoculation against influenza (Renamed from Need for immunization against influenza) Start:09-May-2019 Instruction Type:Provider Instructions for Treatment How to access health informa tion online Indication:Non-smoker Start:18-Apr-2019 Instruction Type:Patient Education How to access health informa tion online - Detail Indication:Non-smoker Start:18-Apr-2019 Instruction Type:Patient Education Patient Instructions Indication:Non-smoker Start:18-Apr-2019 Instruction Type:Provider Instructions for Treatment How to access health informa tion online Indication:Non-smoker Start:03-Mar-2019 Instruction Type:Patient Education How to access health informa tion online - Detail Indication:Non-smoker Start:03-Mar-2019 Instruction Type:Patient Education Patient Instructions Indication:Non-smoker Start:03-Mar-2019 Instruction Type:Provider Instructions for Treatment How to access health informa tion online Indication:Non-smoker Start:17-Jan-2019 Instruction Type:Patient Education How to access health informa tion online - Detail Indication:Non-smoker Start:17-Jan-2019 Instruction Type:Patient Education Patient Instructions Indication:Non-smoker Start:17-Jan-2019 Instruction Type:Provider Instructions for Treatment How to access health informa tion online Indication:Non-smoker Start:15-Jul-2018 Instruction Type:Patient Education How to access health informa tion online - Detail Indication:Non-smoker Start:15-Jul-2018 Instruction Type:Patient Education Patient Instructions Indication:Non-smoker Start:15-Jul-2018 Instruction Type:Provider Instructions for Treatment How to access health informa tion online Indication:Non-smoker Start:01-Feb-2018 Instruction Type:Patient Education How to access health informa tion online - Detail Indication:Non-smoker Start:01-Feb-2018 Instruction Type:Patient Education Patient Instructions Indication:Non-smoker Start:01-Feb-2018 Instruction Type:Provider Instructions for Treatment How to access health informa tion online - Detail Indication:Non-smoker Start:31-Dec-2017 Instruction Type:Patient Education How to access health informa tion online Indication:Non-smoker Start:31-Dec-2017 Instruction Type:Patient Education Patient Instructions Indication:Non-smoker Start:31-Dec-2017 Instruction Type:Provider Instructions for Treatment How to access health informa tion online Indication:Non-smoker Start:15-Sep-2017 Instruction Type:Patient Education How to access health informa tion online - Detail Indication:Non-smoker Start:15-Sep-2017 Instruction Type:Patient Education Patient Instructions Indication:Non-smoker Start:15-Sep-2017 Instruction Type:Provider Instructions for Treatment How to access health informa tion online Indication:BMI 30.0-30.9,adult Start:04-Sep-2017 Instruction Type:Patient Education How to access health informa tion online - Detail Indication:BMI 30.0-30.9,adult Start:04-Sep-2017 Instruction Type:Patient Education Patient Instructions Indication:BMI 30.0-30.9,adult Start:04-Sep-2017 Instruction Type:Provider Instructions for Treatment [facility]; [facility] Work Phone: Instructions* Name Dates Details Patient Instructions Indication:BMI 26.0-26.9,adult Start:10-Sep-2022 Instruction Type:Provider Instructions for Treatment How to Access Health Informa tion Online using Patient Portal and [employer] Apps Indication:BMI 26.0-26.9,adult Start:10-Sep-2022 Instruction Type:Patient Education Patient Instructions Indication:BMI 26.0-26.9,adult Start:07-Jul-2022 Instruction Type:Provider Instructions for Treatment How to Access Health Informa tion Online using Patient Portal and [employer] Apps Indication:BMI 26.0-26.9,adult Start:07-Jul-2022 Instruction Type:Patient Education Patient Instructions Indication:Non-smoker Start:17-Apr-2022 Instruction Type:Provider Instructions for Treatment How to Access Health Informa tion Online using Patient Portal and [employer] Apps Indication:Non-smoker Start:17-Apr-2022 Instruction Type:Patient Education Patient Instructions Indication:Non-smoker Start:26-Feb-2022 Instruction Type:Provider Instructions for Treatment How to Access Health Informa tion Online using Patient Portal and [employer] Apps Indication:Non-smoker Start:26-Feb-2022 Instruction Type:Patient Education Patient Instructions Indication:BMI 26.0-26.9,adult Start:15-Aug-2021 Instruction Type:Provider Instructions for Treatment How to Access Health Informa tion Online using Patient Portal and [employer] Apps Indication:BMI 26.0-26.9,adult Start:15-Aug-2021 Instruction Type:Patient Education Patient Instructions Indication:BMI 26.0-26.9,adult Start:13-Feb-2021 Instruction Type:Provider Instructions for Treatment How to Access Health Informa tion Online using Patient Portal and [employer] Apps Indication:BMI 26.0-26.9,adult Start:13-Feb-2021 Instruction Type:Patient Education Patient Instructions Indication:Non-smoker Start:23-Oct-2020 Instruction Type:Provider Instructions for Treatment How to Access Health Informa tion Online using Patient Portal and [employer] Apps Indication:Non-smoker Start:23-Oct-2020 Instruction Type:Patient Education Patient Instructions Indication:Non-smoker Start:23-Jul-2020 Instruction Type:Provider Instructions for Treatment How to Access Health Informa tion Online using Patient Portal and [employer] Apps Indication:Non-smoker Start:23-Jul-2020 Instruction Type:Patient Education How to access health informa tion online Indication:Non-smoker Start:23-Feb-2020 Instruction Type:Patient Education How to access health informa tion online - Detail Indication:Non-smoker Start:23-Feb-2020 Instruction Type:Patient Education Patient Instructions Indication:Non-smoker Start:23-Feb-2020 Instruction Type:Provider Instructions for Treatment How to access health informa tion online Indication:BMI 26.0-26.9,adult Start:18-Jan-2020 Instruction Type:Patient Education How to access health informa tion online - Detail Indication:BMI 26.0-26.9,adult Start:18-Jan-2020 Instruction Type:Patient Education Patient Instructions Indication:BMI 26.0-26.9,adult Start:18-Jan-2020 Instruction Type:Provider Instructions for Treatment How to access health informa tion online Indication:BMI 26.0-26.9,adult Start:18-Jul-2019 Instruction Type:Patient Education How to access health informa tion online - Detail Indication:BMI 26.0-26.9,adult Start:18-Jul-2019 Instruction Type:Patient Education Patient Instructions Indication:BMI 26.0-26.9,adult Start:18-Jul-2019 Instruction Type:Provider Instructions for Treatment How to access health informa tion online Indication:Need for prophylactic vaccination and inoculation against influenza (Renamed from Need for immunization against influenza) Start:09-May-2019 Instruction Type:Patient Education How to access health informa tion online - Detail Indication:Need for prophylactic vaccination and inoculation against influenza (Renamed from Need for immunization against influenza) Start:09-May-2019 Instruction Type:Patient Education Patient Instructions Indication:Need for prophylactic vaccination and inoculation against influenza (Renamed from Need for immunization against influenza) Start:09-May-2019 Instruction Type:Provider Instructions for Treatment How to access health informa tion online Indication:Non-smoker Start:18-Apr-2019 Instruction Type:Patient Education How to access health informa tion online - Detail Indication:Non-smoker Start:18-Apr-2019 Instruction Type:Patient Education Patient Instructions Indication:Non-smoker Start:18-Apr-2019 Instruction Type:Provider Instructions for Treatment How to access health informa tion online Indication:Non-smoker Start:03-Mar-2019 Instruction Type:Patient Education How to access health informa tion online - Detail Indication:Non-smoker Start:03-Mar-2019 Instruction Type:Patient Education Patient Instructions Indication:Non-smoker Start:03-Mar-2019 Instruction Type:Provider Instructions for Treatment How to access health informa tion online Indication:Non-smoker Start:17-Jan-2019 Instruction Type:Patient Education How to access health informa tion online - Detail Indication:Non-smoker Start:17-Jan-2019 Instruction Type:Patient Education Patient Instructions Indication:Non-smoker Start:17-Jan-2019 Instruction Type:Provider Instructions for Treatment How to access health informa tion online Indication:Non-smoker Start:15-Jul-2018 Instruction Type:Patient Education How to access health informa tion online - Detail Indication:Non-smoker Start:15-Jul-2018 Instruction Type:Patient Education Patient Instructions Indication:Non-smoker Start:15-Jul-2018 Instruction Type:Provider Instructions for Treatment How to access health informa tion online Indication:Non-smoker Start:01-Feb-2018 Instruction Type:Patient Education How to access health informa tion online - Detail Indication:Non-smoker Start:01-Feb-2018 Instruction Type:Patient Education Patient Instructions Indication:Non-smoker Start:01-Feb-2018 Instruction Type:Provider Instructions for Treatment How to access health informa tion online - Detail Indication:Non-smoker Start:31-Dec-2017 Instruction Type:Patient Education How to access health informa tion online Indication:Non-smoker Start:31-Dec-2017 Instruction Type:Patient Education Patient Instructions Indication:Non-smoker Start:31-Dec-2017 Instruction Type:Provider Instructions for Treatment How to access health informa tion online Indication:Non-smoker Start:15-Sep-2017 Instruction Type:Patient Education How to access health informa tion online - Detail Indication:Non-smoker Start:15-Sep-2017 Instruction Type:Patient Education Patient Instructions Indication:Non-smoker Start:15-Sep-2017 Instruction Type:Provider Instructions for Treatment How to access health informa tion online Indication:BMI 30.0-30.9,adult Start:04-Sep-2017 Instruction Type:Patient Education How to access health informa tion online - Detail Indication:BMI 30.0-30.9,adult Start:04-Sep-2017 Instruction Type:Patient Education Patient Instructions Indication:BMI 30.0-30.9,adult Start:04-Sep-2017 Instruction Type:Provider Instructions for Treatment [facility]; [facility] Work Phone: Instructions* Name Dates Details Patient Instructions Indication:BMI 26.0-26.9,adult Start:10-Sep-2022 Instruction Type:Provider Instructions for Treatment How to Access Health Informa tion Online using Patient Portal and [employer] Apps Indication:BMI 26.0-26.9,adult Start:10-Sep-2022 Instruction Type:Patient Education Patient Instructions Indication:BMI 26.0-26.9,adult Start:07-Jul-2022 Instruction Type:Provider Instructions for Treatment How to Access Health Informa tion Online using Patient Portal and [employer] Apps Indication:BMI 26.0-26.9,adult Start:07-Jul-2022 Instruction Type:Patient Education Patient Instructions Indication:Non-smoker Start:17-Apr-2022 Instruction Type:Provider Instructions for Treatment How to Access Health Informa tion Online using Patient Portal and [employer] Apps Indication:Non-smoker Start:17-Apr-2022 Instruction Type:Patient Education Patient Instructions Indication:Non-smoker Start:26-Feb-2022 Instruction Type:Provider Instructions for Treatment How to Access Health Informa tion Online using Patient Portal and [employer] Apps Indication:Non-smoker Start:26-Feb-2022 Instruction Type:Patient Education Patient Instructions Indication:BMI 26.0-26.9,adult Start:15-Aug-2021 Instruction Type:Provider Instructions for Treatment How to Access Health Informa tion Online using Patient Portal and [employer] Apps Indication:BMI 26.0-26.9,adult Start:15-Aug-2021 Instruction Type:Patient Education Patient Instructions Indication:BMI 26.0-26.9,adult Start:13-Feb-2021 Instruction Type:Provider Instructions for Treatment How to Access Health Informa tion Online using Patient Portal and [employer] Apps Indication:BMI 26.0-26.9,adult Start:13-Feb-2021 Instruction Type:Patient Education Patient Instructions Indication:Non-smoker Start:23-Oct-2020 Instruction Type:Provider Instructions for Treatment How to Access Health Informa tion Online using Patient Portal and [employer] Apps Indication:Non-smoker Start:23-Oct-2020 Instruction Type:Patient Education Patient Instructions Indication:Non-smoker Start:23-Jul-2020 Instruction Type:Provider Instructions for Treatment How to Access Health Informa tion Online using Patient Portal and [employer] Apps Indication:Non-smoker Start:23-Jul-2020 Instruction Type:Patient Education How to access health informa tion online Indication:Non-smoker Start:23-Feb-2020 Instruction Type:Patient Education How to access health informa tion online - Detail Indication:Non-smoker Start:23-Feb-2020 Instruction Type:Patient Education Patient Instructions Indication:Non-smoker Start:23-Feb-2020 Instruction Type:Provider Instructions for Treatment How to access health informa tion online Indication:BMI 26.0-26.9,adult Start:18-Jan-2020 Instruction Type:Patient Education How to access health informa tion online - Detail Indication:BMI 26.0-26.9,adult Start:18-Jan-2020 Instruction Type:Patient Education Patient Instructions Indication:BMI 26.0-26.9,adult Start:18-Jan-2020 Instruction Type:Provider Instructions for Treatment How to access health informa tion online Indication:BMI 26.0-26.9,adult Start:18-Jul-2019 Instruction Type:Patient Education How to access health informa tion online - Detail Indication:BMI 26.0-26.9,adult Start:18-Jul-2019 Instruction Type:Patient Education Patient Instructions Indication:BMI 26.0-26.9,adult Start:18-Jul-2019 Instruction Type:Provider Instructions for Treatment How to access health informa tion online Indication:Need for prophylactic vaccination and inoculation against influenza (Renamed from Need for immunization against influenza) Start:09-May-2019 Instruction Type:Patient Education How to access health informa tion online - Detail Indication:Need for prophylactic vaccination and inoculation against influenza (Renamed from Need for immunization against influenza) Start:09-May-2019 Instruction Type:Patient Education Patient Instructions Indication:Need for prophylactic vaccination and inoculation against influenza (Renamed from Need for immunization against influenza) Start:09-May-2019 Instruction Type:Provider Instructions for Treatment How to access health informa tion online Indication:Non-smoker Start:18-Apr-2019 Instruction Type:Patient Education How to access health informa tion online - Detail Indication:Non-smoker Start:18-Apr-2019 Instruction Type:Patient Education Patient Instructions Indication:Non-smoker Start:18-Apr-2019 Instruction Type:Provider Instructions for Treatment How to access health informa tion online Indication:Non-smoker Start:03-Mar-2019 Instruction Type:Patient Education How to access health informa tion online - Detail Indication:Non-smoker Start:03-Mar-2019 Instruction Type:Patient Education Patient Instructions Indication:Non-smoker Start:03-Mar-2019 Instruction Type:Provider Instructions for Treatment How to access health informa tion online Indication:Non-smoker Start:17-Jan-2019 Instruction Type:Patient Education How to access health informa tion online - Detail Indication:Non-smoker Start:17-Jan-2019 Instruction Type:Patient Education Patient Instructions Indication:Non-smoker Start:17-Jan-2019 Instruction Type:Provider Instructions for Treatment How to access health informa tion online Indication:Non-smoker Start:15-Jul-2018 Instruction Type:Patient Education How to access health informa tion online - Detail Indication:Non-smoker Start:15-Jul-2018 Instruction Type:Patient Education Patient Instructions Indication:Non-smoker Start:15-Jul-2018 Instruction Type:Provider Instructions for Treatment How to access health informa tion online Indication:Non-smoker Start:01-Feb-2018 Instruction Type:Patient Education How to access health informa tion online - Detail Indication:Non-smoker Start:01-Feb-2018 Instruction Type:Patient Education Patient Instructions Indication:Non-smoker Start:01-Feb-2018 Instruction Type:Provider Instructions for Treatment How to access health informa tion online - Detail Indication:Non-smoker Start:31-Dec-2017 Instruction Type:Patient Education How to access health informa tion online Indication:Non-smoker Start:31-Dec-2017 Instruction Type:Patient Education Patient Instructions Indication:Non-smoker Start:31-Dec-2017 Instruction Type:Provider Instructions for Treatment How to access health informa tion online Indication:Non-smoker Start:15-Sep-2017 Instruction Type:Patient Education How to access health informa tion online - Detail Indication:Non-smoker Start:15-Sep-2017 Instruction Type:Patient Education Patient Instructions Indication:Non-smoker Start:15-Sep-2017 Instruction Type:Provider Instructions for Treatment How to access health informa tion online Indication:BMI 30.0-30.9,adult Start:04-Sep-2017 Instruction Type:Patient Education How to access health informa tion online - Detail Indication:BMI 30.0-30.9,adult Start:04-Sep-2017 Instruction Type:Patient Education Patient Instructions Indication:BMI 30.0-30.9,adult Start:04-Sep-2017 Instruction Type:Provider Instructions for Treatment [facility]; [facility] Work Phone: Instructions* Name Dates Details Patient Instructions Indication:BMI 26.0-26.9,adult Start:10-Sep-2022 Instruction Type:Provider Instructions for Treatment How to Access Health Informa tion Online using Patient Portal and [employer] Apps Indication:BMI 26.0-26.9,adult Start:10-Sep-2022 Instruction Type:Patient Education Patient Instructions Indication:BMI 26.0-26.9,adult Start:07-Jul-2022 Instruction Type:Provider Instructions for Treatment How to Access Health Informa tion Online using Patient Portal and [employer] Apps Indication:BMI 26.0-26.9,adult Start:07-Jul-2022 Instruction Type:Patient Education Patient Instructions Indication:Non-smoker Start:17-Apr-2022 Instruction Type:Provider Instructions for Treatment How to Access Health Informa tion Online using Patient Portal and [employer] Apps Indication:Non-smoker Start:17-Apr-2022 Instruction Type:Patient Education Patient Instructions Indication:Non-smoker Start:26-Feb-2022 Instruction Type:Provider Instructions for Treatment How to Access Health Informa tion Online using Patient Portal and [employer] Apps Indication:Non-smoker Start:26-Feb-2022 Instruction Type:Patient Education Patient Instructions Indication:BMI 26.0-26.9,adult Start:15-Aug-2021 Instruction Type:Provider Instructions for Treatment How to Access Health Informa tion Online using Patient Portal and [employer] Apps Indication:BMI 26.0-26.9,adult Start:15-Aug-2021 Instruction Type:Patient Education Patient Instructions Indication:BMI 26.0-26.9,adult Start:13-Feb-2021 Instruction Type:Provider Instructions for Treatment How to Access Health Informa tion Online using Patient Portal and [employer] Apps Indication:BMI 26.0-26.9,adult Start:13-Feb-2021 Instruction Type:Patient Education Patient Instructions Indication:Non-smoker Start:23-Oct-2020 Instruction Type:Provider Instructions for Treatment How to Access Health Informa tion Online using Patient Portal and [employer] Apps Indication:Non-smoker Start:23-Oct-2020 Instruction Type:Patient Education Patient Instructions Indication:Non-smoker Start:23-Jul-2020 Instruction Type:Provider Instructions for Treatment How to Access Health Informa tion Online using Patient Portal and [employer] Apps Indication:Non-smoker Start:23-Jul-2020 Instruction Type:Patient Education How to access health informa tion online Indication:Non-smoker Start:23-Feb-2020 Instruction Type:Patient Education How to access health informa tion online - Detail Indication:Non-smoker Start:23-Feb-2020 Instruction Type:Patient Education Patient Instructions Indication:Non-smoker Start:23-Feb-2020 Instruction Type:Provider Instructions for Treatment How to access health informa tion online Indication:BMI 26.0-26.9,adult Start:18-Jan-2020 Instruction Type:Patient Education How to access health informa tion online - Detail Indication:BMI 26.0-26.9,adult Start:18-Jan-2020 Instruction Type:Patient Education Patient Instructions Indication:BMI 26.0-26.9,adult Start:18-Jan-2020 Instruction Type:Provider Instructions for Treatment How to access health informa tion online Indication:BMI 26.0-26.9,adult Start:18-Jul-2019 Instruction Type:Patient Education How to access health informa tion online - Detail Indication:BMI 26.0-26.9,adult Start:18-Jul-2019 Instruction Type:Patient Education Patient Instructions Indication:BMI 26.0-26.9,adult Start:18-Jul-2019 Instruction Type:Provider Instructions for Treatment How to access health informa tion online Indication:Need for prophylactic vaccination and inoculation against influenza (Renamed from Need for immunization against influenza) Start:09-May-2019 Instruction Type:Patient Education How to access health informa tion online - Detail Indication:Need for prophylactic vaccination and inoculation against influenza (Renamed from Need for immunization against influenza) Start:09-May-2019 Instruction Type:Patient Education Patient Instructions Indication:Need for prophylactic vaccination and inoculation against influenza (Renamed from Need for immunization against influenza) Start:09-May-2019 Instruction Type:Provider Instructions for Treatment How to access health informa tion online Indication:Non-smoker Start:18-Apr-2019 Instruction Type:Patient Education How to access health informa tion online - Detail Indication:Non-smoker Start:18-Apr-2019 Instruction Type:Patient Education Patient Instructions Indication:Non-smoker Start:18-Apr-2019 Instruction Type:Provider Instructions for Treatment How to access health informa tion online Indication:Non-smoker Start:03-Mar-2019 Instruction Type:Patient Education How to access health informa tion online - Detail Indication:Non-smoker Start:03-Mar-2019 Instruction Type:Patient Education Patient Instructions Indication:Non-smoker Start:03-Mar-2019 Instruction Type:Provider Instructions for Treatment How to access health informa tion online Indication:Non-smoker Start:17-Jan-2019 Instruction Type:Patient Education How to access health informa tion online - Detail Indication:Non-smoker Start:17-Jan-2019 Instruction Type:Patient Education Patient Instructions Indication:Non-smoker Start:17-Jan-2019 Instruction Type:Provider Instructions for Treatment How to access health informa tion online Indication:Non-smoker Start:15-Jul-2018 Instruction Type:Patient Education How to access health informa tion online - Detail Indication:Non-smoker Start:15-Jul-2018 Instruction Type:Patient Education Patient Instructions Indication:Non-smoker Start:15-Jul-2018 Instruction Type:Provider Instructions for Treatment How to access health informa tion online Indication:Non-smoker Start:01-Feb-2018 Instruction Type:Patient Education How to access health informa tion online - Detail Indication:Non-smoker Start:01-Feb-2018 Instruction Type:Patient Education Patient Instructions Indication:Non-smoker Start:01-Feb-2018 Instruction Type:Provider Instructions for Treatment How to access health informa tion online - Detail Indication:Non-smoker Start:31-Dec-2017 Instruction Type:Patient Education How to access health informa tion online Indication:Non-smoker Start:31-Dec-2017 Instruction Type:Patient Education Patient Instructions Indication:Non-smoker Start:31-Dec-2017 Instruction Type:Provider Instructions for Treatment How to access health informa tion online Indication:Non-smoker Start:15-Sep-2017 Instruction Type:Patient Education How to access health informa tion online - Detail Indication:Non-smoker Start:15-Sep-2017 Instruction Type:Patient Education Patient Instructions Indication:Non-smoker Start:15-Sep-2017 Instruction Type:Provider Instructions for Treatment How to access health informa tion online Indication:BMI 30.0-30.9,adult Start:04-Sep-2017 Instruction Type:Patient Education How to access health informa tion online - Detail Indication:BMI 30.0-30.9,adult Start:04-Sep-2017 Instruction Type:Patient Education Patient Instructions Indication:BMI 30.0-30.9,adult Start:04-Sep-2017 Instruction Type:Provider Instructions for Treatment [facility]; [facility] Work Phone: Instructions* Name Dates Details Patient Instructions Indication:Non-smoker Start:08-Oct-2022 Instruction Type:Provider Instructions for Treatment How to Access Health Informa tion Online using Patient Portal and [employer] Apps Indication:Non-smoker Start:08-Oct-2022 Instruction Type:Patient Education Patient Instructions Indication:BMI 26.0-26.9,adult Start:10-Sep-2022 Instruction Type:Provider Instructions for Treatment How to Access Health Informa tion Online using Patient Portal and [employer] Apps Indication:BMI 26.0-26.9,adult Start:10-Sep-2022 Instruction Type:Patient Education Patient Instructions Indication:BMI 26.0-26.9,adult Start:07-Jul-2022 Instruction Type:Provider Instructions for Treatment How to Access Health Informa tion Online using Patient Portal and [employer] Apps Indication:BMI 26.0-26.9,adult Start:07-Jul-2022 Instruction Type:Patient Education Patient Instructions Indication:Non-smoker Start:17-Apr-2022 Instruction Type:Provider Instructions for Treatment How to Access Health Informa tion Online using Patient Portal and [employer] Apps Indication:Non-smoker Start:17-Apr-2022 Instruction Type:Patient Education Patient Instructions Indication:Non-smoker Start:26-Feb-2022 Instruction Type:Provider Instructions for Treatment How to Access Health Informa tion Online using Patient Portal and [employer] Apps Indication:Non-smoker Start:26-Feb-2022 Instruction Type:Patient Education Patient Instructions Indication:BMI 26.0-26.9,adult Start:15-Aug-2021 Instruction Type:Provider Instructions for Treatment How to Access Health Informa tion Online using Patient Portal and [employer] Apps Indication:BMI 26.0-26.9,adult Start:15-Aug-2021 Instruction Type:Patient Education Patient Instructions Indication:BMI 26.0-26.9,adult Start:13-Feb-2021 Instruction Type:Provider Instructions for Treatment How to Access Health Informa tion Online using Patient Portal and [employer] Apps Indication:BMI 26.0-26.9,adult Start:13-Feb-2021 Instruction Type:Patient Education Patient Instructions Indication:Non-smoker Start:23-Oct-2020 Instruction Type:Provider Instructions for Treatment How to Access Health Informa tion Online using Patient Portal and [employer] Apps Indication:Non-smoker Start:23-Oct-2020 Instruction Type:Patient Education Patient Instructions Indication:Non-smoker Start:23-Jul-2020 Instruction Type:Provider Instructions for Treatment How to Access Health Informa tion Online using Patient Portal and [employer] Apps Indication:Non-smoker Start:23-Jul-2020 Instruction Type:Patient Education How to access health informa tion online Indication:Non-smoker Start:23-Feb-2020 Instruction Type:Patient Education How to access health informa tion online - Detail Indication:Non-smoker Start:23-Feb-2020 Instruction Type:Patient Education Patient Instructions Indication:Non-smoker Start:23-Feb-2020 Instruction Type:Provider Instructions for Treatment How to access health informa tion online Indication:BMI 26.0-26.9,adult Start:18-Jan-2020 Instruction Type:Patient Education How to access health informa tion online - Detail Indication:BMI 26.0-26.9,adult Start:18-Jan-2020 Instruction Type:Patient Education Patient Instructions Indication:BMI 26.0-26.9,adult Start:18-Jan-2020 Instruction Type:Provider Instructions for Treatment How to access health informa tion online Indication:BMI 26.0-26.9,adult Start:18-Jul-2019 Instruction Type:Patient Education How to access health informa tion online - Detail Indication:BMI 26.0-26.9,adult Start:18-Jul-2019 Instruction Type:Patient Education Patient Instructions Indication:BMI 26.0-26.9,adult Start:18-Jul-2019 Instruction Type:Provider Instructions for Treatment How to access health informa tion online Indication:Need for prophylactic vaccination and inoculation against influenza (Renamed from Need for immunization against influenza) Start:09-May-2019 Instruction Type:Patient Education How to access health informa tion online - Detail Indication:Need for prophylactic vaccination and inoculation against influenza (Renamed from Need for immunization against influenza) Start:09-May-2019 Instruction Type:Patient Education Patient Instructions Indication:Need for prophylactic vaccination and inoculation against influenza (Renamed from Need for immunization against influenza) Start:09-May-2019 Instruction Type:Provider Instructions for Treatment How to access health informa tion online Indication:Non-smoker Start:18-Apr-2019 Instruction Type:Patient Education How to access health informa tion online - Detail Indication:Non-smoker Start:18-Apr-2019 Instruction Type:Patient Education Patient Instructions Indication:Non-smoker Start:18-Apr-2019 Instruction Type:Provider Instructions for Treatment How to access health informa tion online Indication:Non-smoker Start:03-Mar-2019 Instruction Type:Patient Education How to access health informa tion online - Detail Indication:Non-smoker Start:03-Mar-2019 Instruction Type:Patient Education Patient Instructions Indication:Non-smoker Start:03-Mar-2019 Instruction Type:Provider Instructions for Treatment How to access health informa tion online Indication:Non-smoker Start:17-Jan-2019 Instruction Type:Patient Education How to access health informa tion online - Detail Indication:Non-smoker Start:17-Jan-2019 Instruction Type:Patient Education Patient Instructions Indication:Non-smoker Start:17-Jan-2019 Instruction Type:Provider Instructions for Treatment How to access health informa tion online Indication:Non-smoker Start:15-Jul-2018 Instruction Type:Patient Education How to access health informa tion online - Detail Indication:Non-smoker Start:15-Jul-2018 Instruction Type:Patient Education Patient Instructions Indication:Non-smoker Start:15-Jul-2018 Instruction Type:Provider Instructions for Treatment How to access health informa tion online Indication:Non-smoker Start:01-Feb-2018 Instruction Type:Patient Education How to access health informa tion online - Detail Indication:Non-smoker Start:01-Feb-2018 Instruction Type:Patient Education Patient Instructions Indication:Non-smoker Start:01-Feb-2018 Instruction Type:Provider Instructions for Treatment How to access health informa tion online - Detail Indication:Non-smoker Start:31-Dec-2017 Instruction Type:Patient Education How to access health informa tion online Indication:Non-smoker Start:31-Dec-2017 Instruction Type:Patient Education Patient Instructions Indication:Non-smoker Start:31-Dec-2017 Instruction Type:Provider Instructions for Treatment How to access health informa tion online Indication:Non-smoker Start:15-Sep-2017 Instruction Type:Patient Education How to access health informa tion online - Detail Indication:Non-smoker Start:15-Sep-2017 Instruction Type:Patient Education Patient Instructions Indication:Non-smoker Start:15-Sep-2017 Instruction Type:Provider Instructions for Treatment How to access health informa tion online Indication:BMI 30.0-30.9,adult Start:04-Sep-2017 Instruction Type:Patient Education How to access health informa tion online - Detail Indication:BMI 30.0-30.9,adult Start:04-Sep-2017 Instruction Type:Patient Education Patient Instructions Indication:BMI 30.0-30.9,adult Start:04-Sep-2017 Instruction Type:Provider Instructions for Treatment [facility]; [facility] Work Phone: Instructions* Name Dates Details Patient Instructions Indication:Non-smoker Start:08-Oct-2022 Instruction Type:Provider Instructions for Treatment How to Access Health Informa tion Online using Patient Portal and [employer] Apps Indication:Non-smoker Start:08-Oct-2022 Instruction Type:Patient Education Patient Instructions Indication:BMI 26.0-26.9,adult Start:10-Sep-2022 Instruction Type:Provider Instructions for Treatment How to Access Health Informa tion Online using Patient Portal and [employer] Apps Indication:BMI 26.0-26.9,adult Start:10-Sep-2022 Instruction Type:Patient Education Patient Instructions Indication:BMI 26.0-26.9,adult Start:07-Jul-2022 Instruction Type:Provider Instructions for Treatment How to Access Health Informa tion Online using Patient Portal and [employer] Apps Indication:BMI 26.0-26.9,adult Start:07-Jul-2022 Instruction Type:Patient Education Patient Instructions Indication:Non-smoker Start:17-Apr-2022 Instruction Type:Provider Instructions for Treatment How to Access Health Informa tion Online using Patient Portal and [employer] Apps Indication:Non-smoker Start:17-Apr-2022 Instruction Type:Patient Education Patient Instructions Indication:Non-smoker Start:26-Feb-2022 Instruction Type:Provider Instructions for Treatment How to Access Health Informa tion Online using Patient Portal and [employer] Apps Indication:Non-smoker Start:26-Feb-2022 Instruction Type:Patient Education Patient Instructions Indication:BMI 26.0-26.9,adult Start:15-Aug-2021 Instruction Type:Provider Instructions for Treatment How to Access Health Informa tion Online using Patient Portal and [employer] Apps Indication:BMI 26.0-26.9,adult Start:15-Aug-2021 Instruction Type:Patient Education Patient Instructions Indication:BMI 26.0-26.9,adult Start:13-Feb-2021 Instruction Type:Provider Instructions for Treatment How to Access Health Informa tion Online using Patient Portal and [employer] Apps Indication:BMI 26.0-26.9,adult Start:13-Feb-2021 Instruction Type:Patient Education Patient Instructions Indication:Non-smoker Start:23-Oct-2020 Instruction Type:Provider Instructions for Treatment How to Access Health Informa tion Online using Patient Portal and [employer] Apps Indication:Non-smoker Start:23-Oct-2020 Instruction Type:Patient Education Patient Instructions Indication:Non-smoker Start:23-Jul-2020 Instruction Type:Provider Instructions for Treatment How to Access Health Informa tion Online using Patient Portal and [employer] Apps Indication:Non-smoker Start:23-Jul-2020 Instruction Type:Patient Education How to access health informa tion online Indication:Non-smoker Start:23-Feb-2020 Instruction Type:Patient Education How to access health informa tion online - Detail Indication:Non-smoker Start:23-Feb-2020 Instruction Type:Patient Education Patient Instructions Indication:Non-smoker Start:23-Feb-2020 Instruction Type:Provider Instructions for Treatment How to access health informa tion online Indication:BMI 26.0-26.9,adult Start:18-Jan-2020 Instruction Type:Patient Education How to access health informa tion online - Detail Indication:BMI 26.0-26.9,adult Start:18-Jan-2020 Instruction Type:Patient Education Patient Instructions Indication:BMI 26.0-26.9,adult Start:18-Jan-2020 Instruction Type:Provider Instructions for Treatment How to access health informa tion online Indication:BMI 26.0-26.9,adult Start:18-Jul-2019 Instruction Type:Patient Education How to access health informa tion online - Detail Indication:BMI 26.0-26.9,adult Start:18-Jul-2019 Instruction Type:Patient Education Patient Instructions Indication:BMI 26.0-26.9,adult Start:18-Jul-2019 Instruction Type:Provider Instructions for Treatment How to access health informa tion online Indication:Need for prophylactic vaccination and inoculation against influenza (Renamed from Need for immunization against influenza) Start:09-May-2019 Instruction Type:Patient Education How to access health informa tion online - Detail Indication:Need for prophylactic vaccination and inoculation against influenza (Renamed from Need for immunization against influenza) Start:09-May-2019 Instruction Type:Patient Education Patient Instructions Indication:Need for prophylactic vaccination and inoculation against influenza (Renamed from Need for immunization against influenza) Start:09-May-2019 Instruction Type:Provider Instructions for Treatment How to access health informa tion online Indication:Non-smoker Start:18-Apr-2019 Instruction Type:Patient Education How to access health informa tion online - Detail Indication:Non-smoker Start:18-Apr-2019 Instruction Type:Patient Education Patient Instructions Indication:Non-smoker Start:18-Apr-2019 Instruction Type:Provider Instructions for Treatment How to access health informa tion online Indication:Non-smoker Start:03-Mar-2019 Instruction Type:Patient Education How to access health informa tion online - Detail Indication:Non-smoker Start:03-Mar-2019 Instruction Type:Patient Education Patient Instructions Indication:Non-smoker Start:03-Mar-2019 Instruction Type:Provider Instructions for Treatment How to access health informa tion online Indication:Non-smoker Start:17-Jan-2019 Instruction Type:Patient Education How to access health informa tion online - Detail Indication:Non-smoker Start:17-Jan-2019 Instruction Type:Patient Education Patient Instructions Indication:Non-smoker Start:17-Jan-2019 Instruction Type:Provider Instructions for Treatment How to access health informa tion online Indication:Non-smoker Start:15-Jul-2018 Instruction Type:Patient Education How to access health informa tion online - Detail Indication:Non-smoker Start:15-Jul-2018 Instruction Type:Patient Education Patient Instructions Indication:Non-smoker Start:15-Jul-2018 Instruction Type:Provider Instructions for Treatment How to access health informa tion online Indication:Non-smoker Start:01-Feb-2018 Instruction Type:Patient Education How to access health informa tion online - Detail Indication:Non-smoker Start:01-Feb-2018 Instruction Type:Patient Education Patient Instructions Indication:Non-smoker Start:01-Feb-2018 Instruction Type:Provider Instructions for Treatment How to access health informa tion online - Detail Indication:Non-smoker Start:31-Dec-2017 Instruction Type:Patient Education How to access health informa tion online Indication:Non-smoker Start:31-Dec-2017 Instruction Type:Patient Education Patient Instructions Indication:Non-smoker Start:31-Dec-2017 Instruction Type:Provider Instructions for Treatment How to access health informa tion online Indication:Non-smoker Start:15-Sep-2017 Instruction Type:Patient Education How to access health informa tion online - Detail Indication:Non-smoker Start:15-Sep-2017 Instruction Type:Patient Education Patient Instructions Indication:Non-smoker Start:15-Sep-2017 Instruction Type:Provider Instructions for Treatment How to access health informa tion online Indication:BMI 30.0-30.9,adult Start:04-Sep-2017 Instruction Type:Patient Education How to access health informa tion online - Detail Indication:BMI 30.0-30.9,adult Start:04-Sep-2017 Instruction Type:Patient Education Patient Instructions Indication:BMI 30.0-30.9,adult Start:04-Sep-2017 Instruction Type:Provider Instructions for Treatment [facility]; [facility] Work Phone: Instructions* Name Dates Details Patient Instructions Indication:Non-smoker Start:08-Oct-2022 Instruction Type:Provider Instructions for Treatment How to Access Health Informa tion Online using Patient Portal and [employer] Apps Indication:Non-smoker Start:08-Oct-2022 Instruction Type:Patient Education Patient Instructions Indication:BMI 26.0-26.9,adult Start:10-Sep-2022 Instruction Type:Provider Instructions for Treatment How to Access Health Informa tion Online using Patient Portal and [employer] Apps Indication:BMI 26.0-26.9,adult Start:10-Sep-2022 Instruction Type:Patient Education Patient Instructions Indication:BMI 26.0-26.9,adult Start:07-Jul-2022 Instruction Type:Provider Instructions for Treatment How to Access Health Informa tion Online using Patient Portal and [employer] Apps Indication:BMI 26.0-26.9,adult Start:07-Jul-2022 Instruction Type:Patient Education Patient Instructions Indication:Non-smoker Start:17-Apr-2022 Instruction Type:Provider Instructions for Treatment How to Access Health Informa tion Online using Patient Portal and [employer] Indication:Non-smoker Start:17-Apr-2022 Instruction Type:Patient Education Patient Instructions Indication:Non-smoker Start:26-Feb-2022 Instruction Type:Provider Instructions for Treatment How to Access Health Informa tion Online using Patient Portal and [employer] Apps Indication:Non-smoker Start:26-Feb-2022 Instruction Type:Patient Education Patient Instructions Indication:BMI 26.0-26.9,adult Start:15-Aug-2021 Instruction Type:Provider Instructions for Treatment How to Access Health Informa tion Online using Patient Portal and [employer] Apps Indication:BMI 26.0-26.9,adult Start:15-Aug-2021 Instruction Type:Patient Education Patient Instructions Indication:BMI 26.0-26.9,adult Start:13-Feb-2021 Instruction Type:Provider Instructions for Treatment How to Access Health Informa tion Online using Patient Portal and [employer] Apps Indication:BMI 26.0-26.9,adult Start:13-Feb-2021 Instruction Type:Patient Education Patient Instructions Indication:Non-smoker Start:23-Oct-2020 Instruction Type:Provider Instructions for Treatment How to Access Health Informa tion Online using Patient Portal and [employer] Apps Indication:Non-smoker Start:23-Oct-2020 Instruction Type:Patient Education Patient Instructions Indication:Non-smoker Start:23-Jul-2020 Instruction Type:Provider Instructions for Treatment How to Access Health Informa tion Online using Patient Portal and [employer] Apps Indication:Non-smoker Start:23-Jul-2020 Instruction Type:Patient Education How to access health informa tion online Indication:Non-smoker Start:23-Feb-2020 Instruction Type:Patient Education How to access health informa tion online - Detail Indication:Non-smoker Start:23-Feb-2020 Instruction Type:Patient Education Patient Instructions Indication:Non-smoker Start:23-Feb-2020 Instruction Type:Provider Instructions for Treatment How to access health informa tion online Indication:BMI 26.0-26.9,adult Start:18-Jan-2020 Instruction Type:Patient Education How to access health informa tion online - Detail Indication:BMI 26.0-26.9,adult Start:18-Jan-2020 Instruction Type:Patient Education Patient Instructions Indication:BMI 26.0-26.9,adult Start:18-Jan-2020 Instruction Type:Provider Instructions for Treatment How to access health informa tion online Indication:BMI 26.0-26.9,adult Start:18-Jul-2019 Instruction Type:Patient Education How to access health informa tion online - Detail Indication:BMI 26.0-26.9,adult Start:18-Jul-2019 Instruction Type:Patient Education Patient Instructions Indication:BMI 26.0-26.9,adult Start:18-Jul-2019 Instruction Type:Provider Instructions for Treatment How to access health informa tion online Indication:Need for prophylactic vaccination and inoculation against influenza (Renamed from Need for immunization against influenza) Start:09-May-2019 Instruction Type:Patient Education How to access health informa tion online - Detail Indication:Need for prophylactic vaccination and inoculation against influenza (Renamed from Need for immunization against influenza) Start:09-May-2019 Instruction Type:Patient Education Patient Instructions Indication:Need for prophylactic vaccination and inoculation against influenza (Renamed from Need for immunization against influenza) Start:09-May-2019 Instruction Type:Provider Instructions for Treatment How to access health informa tion online Indication:Non-smoker Start:18-Apr-2019 Instruction Type:Patient Education How to access health informa tion online - Detail Indication:Non-smoker Start:18-Apr-2019 Instruction Type:Patient Education Patient Instructions Indication:Non-smoker Start:18-Apr-2019 Instruction Type:Provider Instructions for Treatment How to access health informa tion online Indication:Non-smoker Start:03-Mar-2019 Instruction Type:Patient Education How to access health informa tion online - Detail Indication:Non-smoker Start:03-Mar-2019 Instruction Type:Patient Education Patient Instructions Indication:Non-smoker Start:03-Mar-2019 Instruction Type:Provider Instructions for Treatment How to access health informa tion online Indication:Non-smoker Start:17-Jan-2019 Instruction Type:Patient Education How to access health informa tion online - Detail Indication:Non-smoker Start:17-Jan-2019 Instruction Type:Patient Education Patient Instructions Indication:Non-smoker Start:17-Jan-2019 Instruction Type:Provider Instructions for Treatment How to access health informa tion online Indication:Non-smoker Start:15-Jul-2018 Instruction Type:Patient Education How to access health informa tion online - Detail Indication:Non-smoker Start:15-Jul-2018 Instruction Type:Patient Education Patient Instructions Indication:Non-smoker Start:15-Jul-2018 Instruction Type:Provider Instructions for Treatment How to access health informa tion online Indication:Non-smoker Start:01-Feb-2018 Instruction Type:Patient Education How to access health informa tion online - Detail Indication:Non-smoker Start:01-Feb-2018 Instruction Type:Patient Education Patient Instructions Indication:Non-smoker Start:01-Feb-2018 Instruction Type:Provider Instructions for Treatment How to access health informa tion online - Detail Indication:Non-smoker Start:31-Dec-2017 Instruction Type:Patient Education How to access health informa tion online Indication:Non-smoker Start:31-Dec-2017 Instruction Type:Patient Education Patient Instructions Indication:Non-smoker Start:31-Dec-2017 Instruction Type:Provider Instructions for Treatment How to access health informa tion online Indication:Non-smoker Start:15-Sep-2017 Instruction Type:Patient Education How to access health informa tion online - Detail Indication:Non-smoker Start:15-Sep-2017 Instruction Type:Patient Education Patient Instructions Indication:Non-smoker Start:15-Sep-2017 Instruction Type:Provider Instructions for Treatment How to access health informa tion online Indication:BMI 30.0-30.9,adult Start:04-Sep-2017 Instruction Type:Patient Education How to access health informa tion online - Detail Indication:BMI 30.0-30.9,adult Start:04-Sep-2017 Instruction Type:Patient Education Patient Instructions Indication:BMI 30.0-30.9,adult Start:04-Sep-2017 Instruction Type:Provider Instructions for Treatment [facility]; [facility] Work Phone: Instructions* Name Dates Details Patient Instructions Indication:Non-smoker Start:08-Oct-2022 Instruction Type:Provider Instructions for Treatment How to Access Health Informa tion Online using Patient Portal and [employer] Apps Indication:Non-smoker Start:08-Oct-2022 Instruction Type:Patient Education Patient Instructions Indication:BMI 26.0-26.9,adult Start:10-Sep-2022 Instruction Type:Provider Instructions for Treatment How to Access Health Informa tion Online using Patient Portal and [employer] Apps Indication:BMI 26.0-26.9,adult Start:10-Sep-2022 Instruction Type:Patient Education Patient Instructions Indication:BMI 26.0-26.9,adult Start:07-Jul-2022 Instruction Type:Provider Instructions for Treatment How to Access Health Informa tion Online using Patient Portal and [employer] Apps Indication:BMI 26.0-26.9,adult Start:07-Jul-2022 Instruction Type:Patient Education Patient Instructions Indication:Non-smoker Start:17-Apr-2022 Instruction Type:Provider Instructions for Treatment How to Access Health Informa tion Online using Patient Portal and [employer] Apps Indication:Non-smoker Start:17-Apr-2022 Instruction Type:Patient Education Patient Instructions Indication:Non-smoker Start:26-Feb-2022 Instruction Type:Provider Instructions for Treatment How to Access Health Informa tion Online using Patient Portal and [employer] Apps Indication:Non-smoker Start:26-Feb-2022 Instruction Type:Patient Education Patient Instructions Indication:BMI 26.0-26.9,adult Start:15-Aug-2021 Instruction Type:Provider Instructions for Treatment How to Access Health Informa tion Online using Patient Portal and [employer] Apps Indication:BMI 26.0-26.9,adult Start:15-Aug-2021 Instruction Type:Patient Education Patient Instructions Indication:BMI 26.0-26.9,adult Start:13-Feb-2021 Instruction Type:Provider Instructions for Treatment How to Access Health Informa tion Online using Patient Portal and [employer] Apps Indication:BMI 26.0-26.9,adult Start:13-Feb-2021 Instruction Type:Patient Education Patient Instructions Indication:Non-smoker Start:23-Oct-2020 Instruction Type:Provider Instructions for Treatment How to Access Health Informa tion Online using Patient Portal and [employer] Apps Indication:Non-smoker Start:23-Oct-2020 Instruction Type:Patient Education Patient Instructions Indication:Non-smoker Start:23-Jul-2020 Instruction Type:Provider Instructions for Treatment How to Access Health Informa tion Online using Patient Portal and [employer] Apps Indication:Non-smoker Start:23-Jul-2020 Instruction Type:Patient Education How to access health informa tion online Indication:Non-smoker Start:23-Feb-2020 Instruction Type:Patient Education How to access health informa tion online - Detail Indication:Non-smoker Start:23-Feb-2020 Instruction Type:Patient Education Patient Instructions Indication:Non-smoker Start:23-Feb-2020 Instruction Type:Provider Instructions for Treatment How to access health informa tion online Indication:BMI 26.0-26.9,adult Start:18-Jan-2020 Instruction Type:Patient Education How to access health informa tion online - Detail Indication:BMI 26.0-26.9,adult Start:18-Jan-2020 Instruction Type:Patient Education Patient Instructions Indication:BMI 26.0-26.9,adult Start:18-Jan-2020 Instruction Type:Provider Instructions for Treatment How to access health informa tion online Indication:BMI 26.0-26.9,adult Start:18-Jul-2019 Instruction Type:Patient Education How to access health informa tion online - Detail Indication:BMI 26.0-26.9,adult Start:18-Jul-2019 Instruction Type:Patient Education Patient Instructions Indication:BMI 26.0-26.9,adult Start:18-Jul-2019 Instruction Type:Provider Instructions for Treatment How to access health informa tion online Indication:Need for prophylactic vaccination and inoculation against influenza (Renamed from Need for immunization against influenza) Start:09-May-2019 Instruction Type:Patient Education How to access health informa tion online - Detail Indication:Need for prophylactic vaccination and inoculation against influenza (Renamed from Need for immunization against influenza) Start:09-May-2019 Instruction Type:Patient Education Patient Instructions Indication:Need for prophylactic vaccination and inoculation against influenza (Renamed from Need for immunization against influenza) Start:09-May-2019 Instruction Type:Provider Instructions for Treatment How to access health informa tion online Indication:Non-smoker Start:18-Apr-2019 Instruction Type:Patient Education How to access health informa tion online - Detail Indication:Non-smoker Start:18-Apr-2019 Instruction Type:Patient Education Patient Instructions Indication:Non-smoker Start:18-Apr-2019 Instruction Type:Provider Instructions for Treatment How to access health informa tion online Indication:Non-smoker Start:03-Mar-2019 Instruction Type:Patient Education How to access health informa tion online - Detail Indication:Non-smoker Start:03-Mar-2019 Instruction Type:Patient Education Patient Instructions Indication:Non-smoker Start:03-Mar-2019 Instruction Type:Provider Instructions for Treatment How to access health informa tion online Indication:Non-smoker Start:17-Jan-2019 Instruction Type:Patient Education How to access health informa tion online - Detail Indication:Non-smoker Start:17-Jan-2019 Instruction Type:Patient Education Patient Instructions Indication:Non-smoker Start:17-Jan-2019 Instruction Type:Provider Instructions for Treatment How to access health informa tion online Indication:Non-smoker Start:15-Jul-2018 Instruction Type:Patient Education How to access health informa tion online - Detail Indication:Non-smoker Start:15-Jul-2018 Instruction Type:Patient Education Patient Instructions Indication:Non-smoker Start:15-Jul-2018 Instruction Type:Provider Instructions for Treatment How to access health informa tion online Indication:Non-smoker Start:01-Feb-2018 Instruction Type:Patient Education How to access health informa tion online - Detail Indication:Non-smoker Start:01-Feb-2018 Instruction Type:Patient Education Patient Instructions Indication:Non-smoker Start:01-Feb-2018 Instruction Type:Provider Instructions for Treatment How to access health informa tion online - Detail Indication:Non-smoker Start:31-Dec-2017 Instruction Type:Patient Education How to access health informa tion online Indication:Non-smoker Start:31-Dec-2017 Instruction Type:Patient Education Patient Instructions Indication:Non-smoker Start:31-Dec-2017 Instruction Type:Provider Instructions for Treatment How to access health informa tion online Indication:Non-smoker Start:15-Sep-2017 Instruction Type:Patient Education How to access health informa tion online - Detail Indication:Non-smoker Start:15-Sep-2017 Instruction Type:Patient Education Patient Instructions Indication:Non-smoker Start:15-Sep-2017 Instruction Type:Provider Instructions for Treatment How to access health informa tion online Indication:BMI 30.0-30.9,adult Start:04-Sep-2017 Instruction Type:Patient Education How to access health informa tion online - Detail Indication:BMI 30.0-30.9,adult Start:04-Sep-2017 Instruction Type:Patient Education Patient Instructions Indication:BMI 30.0-30.9,adult Start:04-Sep-2017 Instruction Type:Provider Instructions for Treatment [facility]; [facility] Work Phone: Instructions* Name Dates Details Patient Instructions Indication:Non-smoker Start:08-Oct-2022 Instruction Type:Provider Instructions for Treatment How to Access Health Informa tion Online using Patient Portal and [employer] Apps Indication:Non-smoker Start:08-Oct-2022 Instruction Type:Patient Education Patient Instructions Indication:BMI 26.0-26.9,adult Start:10-Sep-2022 Instruction Type:Provider Instructions for Treatment How to Access Health Informa tion Online using Patient Portal and [employer] Apps Indication:BMI 26.0-26.9,adult Start:10-Sep-2022 Instruction Type:Patient Education Patient Instructions Indication:BMI 26.0-26.9,adult Start:07-Jul-2022 Instruction Type:Provider Instructions for Treatment How to Access Health Informa tion Online using Patient Portal and [employer] Apps Indication:BMI 26.0-26.9,adult Start:07-Jul-2022 Instruction Type:Patient Education Patient Instructions Indication:Non-smoker Start:17-Apr-2022 Instruction Type:Provider Instructions for Treatment How to Access Health Informa tion Online using Patient Portal and [employer] Apps Indication:Non-smoker Start:17-Apr-2022 Instruction Type:Patient Education Patient Instructions Indication:Non-smoker Start:26-Feb-2022 Instruction Type:Provider Instructions for Treatment How to Access Health Informa tion Online using Patient Portal and [employer] Apps Indication:Non-smoker Start:26-Feb-2022 Instruction Type:Patient Education Patient Instructions Indication:BMI 26.0-26.9,adult Start:15-Aug-2021 Instruction Type:Provider Instructions for Treatment How to Access Health Informa tion Online using Patient Portal and [employer] Apps Indication:BMI 26.0-26.9,adult Start:15-Aug-2021 Instruction Type:Patient Education Patient Instructions Indication:BMI 26.0-26.9,adult Start:13-Feb-2021 Instruction Type:Provider Instructions for Treatment How to Access Health Informa tion Online using Patient Portal and [employer] Apps Indication:BMI 26.0-26.9,adult Start:13-Feb-2021 Instruction Type:Patient Education Patient Instructions Indication:Non-smoker Start:23-Oct-2020 Instruction Type:Provider Instructions for Treatment How to Access Health Informa tion Online using Patient Portal and [employer] Indication:Non-smoker Start:23-Oct-2020 Instruction Type:Patient Education Patient Instructions Indication:Non-smoker Start:23-Jul-2020 Instruction Type:Provider Instructions for Treatment How to Access Health Informa tion Online using Patient Portal and [employer] Apps Indication:Non-smoker Start:23-Jul-2020 Instruction Type:Patient Education How to access health informa tion online Indication:Non-smoker Start:23-Feb-2020 Instruction Type:Patient Education How to access health informa tion online - Detail Indication:Non-smoker Start:23-Feb-2020 Instruction Type:Patient Education Patient Instructions Indication:Non-smoker Start:23-Feb-2020 Instruction Type:Provider Instructions for Treatment How to access health informa tion online Indication:BMI 26.0-26.9,adult Start:18-Jan-2020 Instruction Type:Patient Education How to access health informa tion online - Detail Indication:BMI 26.0-26.9,adult Start:18-Jan-2020 Instruction Type:Patient Education Patient Instructions Indication:BMI 26.0-26.9,adult Start:18-Jan-2020 Instruction Type:Provider Instructions for Treatment How to access health informa tion online Indication:BMI 26.0-26.9,adult Start:18-Jul-2019 Instruction Type:Patient Education How to access health informa tion online - Detail Indication:BMI 26.0-26.9,adult Start:18-Jul-2019 Instruction Type:Patient Education Patient Instructions Indication:BMI 26.0-26.9,adult Start:18-Jul-2019 Instruction Type:Provider Instructions for Treatment How to access health informa tion online Indication:Need for prophylactic vaccination and inoculation against influenza (Renamed from Need for immunization against influenza) Start:09-May-2019 Instruction Type:Patient Education How to access health informa tion online - Detail Indication:Need for prophylactic vaccination and inoculation against influenza (Renamed from Need for immunization against influenza) Start:09-May-2019 Instruction Type:Patient Education Patient Instructions Indication:Need for prophylactic vaccination and inoculation against influenza (Renamed from Need for immunization against influenza) Start:09-May-2019 Instruction Type:Provider Instructions for Treatment How to access health informa tion online Indication:Non-smoker Start:18-Apr-2019 Instruction Type:Patient Education How to access health informa tion online - Detail Indication:Non-smoker Start:18-Apr-2019 Instruction Type:Patient Education Patient Instructions Indication:Non-smoker Start:18-Apr-2019 Instruction Type:Provider Instructions for Treatment How to access health informa tion online Indication:Non-smoker Start:03-Mar-2019 Instruction Type:Patient Education How to access health informa tion online - Detail Indication:Non-smoker Start:03-Mar-2019 Instruction Type:Patient Education Patient Instructions Indication:Non-smoker Start:03-Mar-2019 Instruction Type:Provider Instructions for Treatment How to access health informa tion online Indication:Non-smoker Start:17-Jan-2019 Instruction Type:Patient Education How to access health informa tion online - Detail Indication:Non-smoker Start:17-Jan-2019 Instruction Type:Patient Education Patient Instructions Indication:Non-smoker Start:17-Jan-2019 Instruction Type:Provider Instructions for Treatment How to access health informa tion online Indication:Non-smoker Start:15-Jul-2018 Instruction Type:Patient Education How to access health informa tion online - Detail Indication:Non-smoker Start:15-Jul-2018 Instruction Type:Patient Education Patient Instructions Indication:Non-smoker Start:15-Jul-2018 Instruction Type:Provider Instructions for Treatment How to access health informa tion online Indication:Non-smoker Start:01-Feb-2018 Instruction Type:Patient Education How to access health informa tion online - Detail Indication:Non-smoker Start:01-Feb-2018 Instruction Type:Patient Education Patient Instructions Indication:Non-smoker Start:01-Feb-2018 Instruction Type:Provider Instructions for Treatment How to access health informa tion online - Detail Indication:Non-smoker Start:31-Dec-2017 Instruction Type:Patient Education How to access health informa tion online Indication:Non-smoker Start:31-Dec-2017 Instruction Type:Patient Education Patient Instructions Indication:Non-smoker Start:31-Dec-2017 Instruction Type:Provider Instructions for Treatment How to access health informa tion online Indication:Non-smoker Start:15-Sep-2017 Instruction Type:Patient Education How to access health informa tion online - Detail Indication:Non-smoker Start:15-Sep-2017 Instruction Type:Patient Education Patient Instructions Indication:Non-smoker Start:15-Sep-2017 Instruction Type:Provider Instructions for Treatment How to access health informa tion online Indication:BMI 30.0-30.9,adult Start:04-Sep-2017 Instruction Type:Patient Education How to access health informa tion online - Detail Indication:BMI 30.0-30.9,adult Start:04-Sep-2017 Instruction Type:Patient Education Patient Instructions Indication:BMI 30.0-30.9,adult Start:04-Sep-2017 Instruction Type:Provider Instructions for Treatment [facility]; [facility] Work Phone: Instructions* Name Dates Details Patient Instructions Indication:Non-smoker Start:08-Oct-2022 Instruction Type:Provider Instructions for Treatment How to Access Health Informa tion Online using Patient Portal and [employer] Indication:Non-smoker Start:08-Oct-2022 Instruction Type:Patient Education Patient Instructions Indication:BMI 26.0-26.9,adult Start:10-Sep-2022 Instruction Type:Provider Instructions for Treatment How to Access Health Informa tion Online using Patient Portal and [employer] Indication:BMI 26.0-26.9,adult Start:10-Sep-2022 Instruction Type:Patient Education Patient Instructions Indication:BMI 26.0-26.9,adult Start:07-Jul-2022 Instruction Type:Provider Instructions for Treatment How to Access Health Informa tion Online using Patient Portal and [employer] Indication:BMI 26.0-26.9,adult Start:07-Jul-2022 Instruction Type:Patient Education Patient Instructions Indication:Non-smoker Start:17-Apr-2022 Instruction Type:Provider Instructions for Treatment How to Access Health Informa tion Online using Patient Portal and [employer] Apps Indication:Non-smoker Start:17-Apr-2022 Instruction Type:Patient Education Patient Instructions Indication:Non-smoker Start:26-Feb-2022 Instruction Type:Provider Instructions for Treatment How to Access Health Informa tion Online using Patient Portal and [employer] Apps Indication:Non-smoker Start:26-Feb-2022 Instruction Type:Patient Education Patient Instructions Indication:BMI 26.0-26.9,adult Start:15-Aug-2021 Instruction Type:Provider Instructions for Treatment How to Access Health Informa tion Online using Patient Portal and [employer] Indication:BMI 26.0-26.9,adult Start:15-Aug-2021 Instruction Type:Patient Education Patient Instructions Indication:BMI 26.0-26.9,adult Start:13-Feb-2021 Instruction Type:Provider Instructions for Treatment How to Access Health Informa tion Online using Patient Portal and [employer] Indication:BMI 26.0-26.9,adult Start:13-Feb-2021 Instruction Type:Patient Education Patient Instructions Indication:Non-smoker Start:23-Oct-2020 Instruction Type:Provider Instructions for Treatment How to Access Health Informa tion Online using Patient Portal and [employer] Apps Indication:Non-smoker Start:23-Oct-2020 Instruction Type:Patient Education Patient Instructions Indication:Non-smoker Start:23-Jul-2020 Instruction Type:Provider Instructions for Treatment How to Access Health Informa tion Online using Patient Portal and [employer] Apps Indication:Non-smoker Start:23-Jul-2020 Instruction Type:Patient Education How to access health informa tion online Indication:Non-smoker Start:23-Feb-2020 Instruction Type:Patient Education How to access health informa tion online - Detail Indication:Non-smoker Start:23-Feb-2020 Instruction Type:Patient Education Patient Instructions Indication:Non-smoker Start:23-Feb-2020 Instruction Type:Provider Instructions for Treatment How to access health informa tion online Indication:BMI 26.0-26.9,adult Start:18-Jan-2020 Instruction Type:Patient Education How to access health informa tion online - Detail Indication:BMI 26.0-26.9,adult Start:18-Jan-2020 Instruction Type:Patient Education Patient Instructions Indication:BMI 26.0-26.9,adult Start:18-Jan-2020 Instruction Type:Provider Instructions for Treatment How to access health informa tion online Indication:BMI 26.0-26.9,adult Start:18-Jul-2019 Instruction Type:Patient Education How to access health informa tion online - Detail Indication:BMI 26.0-26.9,adult Start:18-Jul-2019 Instruction Type:Patient Education Patient Instructions Indication:BMI 26.0-26.9,adult Start:18-Jul-2019 Instruction Type:Provider Instructions for Treatment How to access health informa tion online Indication:Need for prophylactic vaccination and inoculation against influenza (Renamed from Need for immunization against influenza) Start:09-May-2019 Instruction Type:Patient Education How to access health informa tion online - Detail Indication:Need for prophylactic vaccination and inoculation against influenza (Renamed from Need for immunization against influenza) Start:09-May-2019 Instruction Type:Patient Education Patient Instructions Indication:Need for prophylactic vaccination and inoculation against influenza (Renamed from Need for immunization against influenza) Start:09-May-2019 Instruction Type:Provider Instructions for Treatment How to access health informa tion online Indication:Non-smoker Start:18-Apr-2019 Instruction Type:Patient Education How to access health informa tion online - Detail Indication:Non-smoker Start:18-Apr-2019 Instruction Type:Patient Education Patient Instructions Indication:Non-smoker Start:18-Apr-2019 Instruction Type:Provider Instructions for Treatment How to access health informa tion online Indication:Non-smoker Start:03-Mar-2019 Instruction Type:Patient Education How to access health informa tion online - Detail Indication:Non-smoker Start:03-Mar-2019 Instruction Type:Patient Education Patient Instructions Indication:Non-smoker Start:03-Mar-2019 Instruction Type:Provider Instructions for Treatment How to access health informa tion online Indication:Non-smoker Start:17-Jan-2019 Instruction Type:Patient Education How to access health informa tion online - Detail Indication:Non-smoker Start:17-Jan-2019 Instruction Type:Patient Education Patient Instructions Indication:Non-smoker Start:17-Jan-2019 Instruction Type:Provider Instructions for Treatment How to access health informa tion online Indication:Non-smoker Start:15-Jul-2018 Instruction Type:Patient Education How to access health informa tion online - Detail Indication:Non-smoker Start:15-Jul-2018 Instruction Type:Patient Education Patient Instructions Indication:Non-smoker Start:15-Jul-2018 Instruction Type:Provider Instructions for Treatment How to access health informa tion online Indication:Non-smoker Start:01-Feb-2018 Instruction Type:Patient Education How to access health informa tion online - Detail Indication:Non-smoker Start:01-Feb-2018 Instruction Type:Patient Education Patient Instructions Indication:Non-smoker Start:01-Feb-2018 Instruction Type:Provider Instructions for Treatment How to access health informa tion online - Detail Indication:Non-smoker Start:31-Dec-2017 Instruction Type:Patient Education How to access health informa tion online Indication:Non-smoker Start:31-Dec-2017 Instruction Type:Patient Education Patient Instructions Indication:Non-smoker Start:31-Dec-2017 Instruction Type:Provider Instructions for Treatment How to access health informa tion online Indication:Non-smoker Start:15-Sep-2017 Instruction Type:Patient Education How to access health informa tion online - Detail Indication:Non-smoker Start:15-Sep-2017 Instruction Type:Patient Education Patient Instructions Indication:Non-smoker Start:15-Sep-2017 Instruction Type:Provider Instructions for Treatment How to access health informa tion online Indication:BMI 30.0-30.9,adult Start:04-Sep-2017 Instruction Type:Patient Education How to access health informa tion online - Detail Indication:BMI 30.0-30.9,adult Start:04-Sep-2017 Instruction Type:Patient Education Patient Instructions Indication:BMI 30.0-30.9,adult Start:04-Sep-2017 Instruction Type:Provider Instructions for Treatment [facility]; [facility] Work Phone: Instructions* Name Dates Details Patient Instructions Indication:BMI 26.0-26.9,adult Start:13-Apr-2023 Instruction Type:Provider Instructions for Treatment How to Access Health Informa tion Online using Patient Portal and [employer] Apps Indication:BMI 26.0-26.9,adult Start:13-Apr-2023 Instruction Type:Patient Education Patient Instructions Indication:Non-smoker Start:08-Oct-2022 Instruction Type:Provider Instructions for Treatment How to Access Health Informa tion Online using Patient Portal and [employer] Apps Indication:Non-smoker Start:08-Oct-2022 Instruction Type:Patient Education Patient Instructions Indication:BMI 26.0-26.9,adult Start:10-Sep-2022 Instruction Type:Provider Instructions for Treatment How to Access Health Informa tion Online using Patient Portal and [employer] Apps Indication:BMI 26.0-26.9,adult Start:10-Sep-2022 Instruction Type:Patient Education Patient Instructions Indication:BMI 26.0-26.9,adult Start:07-Jul-2022 Instruction Type:Provider Instructions for Treatment How to Access Health Informa tion Online using Patient Portal and [employer] Apps Indication:BMI 26.0-26.9,adult Start:07-Jul-2022 Instruction Type:Patient Education Patient Instructions Indication:Non-smoker Start:17-Apr-2022 Instruction Type:Provider Instructions for Treatment How to Access Health Informa tion Online using Patient Portal and [employer] Apps Indication:Non-smoker Start:17-Apr-2022 Instruction Type:Patient Education Patient Instructions Indication:Non-smoker Start:26-Feb-2022 Instruction Type:Provider Instructions for Treatment How to Access Health Informa tion Online using Patient Portal and [employer] Apps Indication:Non-smoker Start:26-Feb-2022 Instruction Type:Patient Education Patient Instructions Indication:BMI 26.0-26.9,adult Start:15-Aug-2021 Instruction Type:Provider Instructions for Treatment How to Access Health Informa tion Online using Patient Portal and [employer] Apps Indication:BMI 26.0-26.9,adult Start:15-Aug-2021 Instruction Type:Patient Education Patient Instructions Indication:BMI 26.0-26.9,adult Start:13-Feb-2021 Instruction Type:Provider Instructions for Treatment How to Access Health Informa tion Online using Patient Portal and [employer] Apps Indication:BMI 26.0-26.9,adult Start:13-Feb-2021 Instruction Type:Patient Education Patient Instructions Indication:Non-smoker Start:23-Oct-2020 Instruction Type:Provider Instructions for Treatment How to Access Health Informa tion Online using Patient Portal and [employer] Apps Indication:Non-smoker Start:23-Oct-2020 Instruction Type:Patient Education Patient Instructions Indication:Non-smoker Start:23-Jul-2020 Instruction Type:Provider Instructions for Treatment How to Access Health Informa tion Online using Patient Portal and [employer] Apps Indication:Non-smoker Start:23-Jul-2020 Instruction Type:Patient Education How to access health informa tion online Indication:Non-smoker Start:23-Feb-2020 Instruction Type:Patient Education How to access health informa tion online - Detail Indication:Non-smoker Start:23-Feb-2020 Instruction Type:Patient Education Patient Instructions Indication:Non-smoker Start:23-Feb-2020 Instruction Type:Provider Instructions for Treatment How to access health informa tion online Indication:BMI 26.0-26.9,adult Start:18-Jan-2020 Instruction Type:Patient Education How to access health informa tion online - Detail Indication:BMI 26.0-26.9,adult Start:18-Jan-2020 Instruction Type:Patient Education Patient Instructions Indication:BMI 26.0-26.9,adult Start:18-Jan-2020 Instruction Type:Provider Instructions for Treatment How to access health informa tion online Indication:BMI 26.0-26.9,adult Start:18-Jul-2019 Instruction Type:Patient Education How to access health informa tion online - Detail Indication:BMI 26.0-26.9,adult Start:18-Jul-2019 Instruction Type:Patient Education Patient Instructions Indication:BMI 26.0-26.9,adult Start:18-Jul-2019 Instruction Type:Provider Instructions for Treatment How to access health informa tion online Indication:Need for prophylactic vaccination and inoculation against influenza (Renamed from Need for immunization against influenza) Start:09-May-2019 Instruction Type:Patient Education How to access health informa tion online - Detail Indication:Need for prophylactic vaccination and inoculation against influenza (Renamed from Need for immunization against influenza) Start:09-May-2019 Instruction Type:Patient Education Patient Instructions Indication:Need for prophylactic vaccination and inoculation against influenza (Renamed from Need for immunization against influenza) Start:09-May-2019 Instruction Type:Provider Instructions for Treatment How to access health informa tion online Indication:Non-smoker Start:18-Apr-2019 Instruction Type:Patient Education How to access health informa tion online - Detail Indication:Non-smoker Start:18-Apr-2019 Instruction Type:Patient Education Patient Instructions Indication:Non-smoker Start:18-Apr-2019 Instruction Type:Provider Instructions for Treatment How to access health informa tion online Indication:Non-smoker Start:03-Mar-2019 Instruction Type:Patient Education How to access health informa tion online - Detail Indication:Non-smoker Start:03-Mar-2019 Instruction Type:Patient Education Patient Instructions Indication:Non-smoker Start:03-Mar-2019 Instruction Type:Provider Instructions for Treatment How to access health informa tion online Indication:Non-smoker Start:17-Jan-2019 Instruction Type:Patient Education How to access health informa tion online - Detail Indication:Non-smoker Start:17-Jan-2019 Instruction Type:Patient Education Patient Instructions Indication:Non-smoker Start:17-Jan-2019 Instruction Type:Provider Instructions for Treatment How to access health informa tion online Indication:Non-smoker Start:15-Jul-2018 Instruction Type:Patient Education How to access health informa tion online - Detail Indication:Non-smoker Start:15-Jul-2018 Instruction Type:Patient Education Patient Instructions Indication:Non-smoker Start:15-Jul-2018 Instruction Type:Provider Instructions for Treatment How to access health informa tion online Indication:Non-smoker Start:01-Feb-2018 Instruction Type:Patient Education How to access health informa tion online - Detail Indication:Non-smoker Start:01-Feb-2018 Instruction Type:Patient Education Patient Instructions Indication:Non-smoker Start:01-Feb-2018 Instruction Type:Provider Instructions for Treatment How to access health informa tion online - Detail Indication:Non-smoker Start:31-Dec-2017 Instruction Type:Patient Education How to access health informa tion online Indication:Non-smoker Start:31-Dec-2017 Instruction Type:Patient Education Patient Instructions Indication:Non-smoker Start:31-Dec-2017 Instruction Type:Provider Instructions for Treatment How to access health informa tion online Indication:Non-smoker Start:15-Sep-2017 Instruction Type:Patient Education How to access health informa tion online - Detail Indication:Non-smoker Start:15-Sep-2017 Instruction Type:Patient Education Patient Instructions Indication:Non-smoker Start:15-Sep-2017 Instruction Type:Provider Instructions for Treatment How to access health informa tion online Indication:BMI 30.0-30.9,adult Start:04-Sep-2017 Instruction Type:Patient Education How to access health informa tion online - Detail Indication:BMI 30.0-30.9,adult Start:04-Sep-2017 Instruction Type:Patient Education Patient Instructions Indication:BMI 30.0-30.9,adult Start:04-Sep-2017 Instruction Type:Provider Instructions for Treatment [facility]; [facility] Work Phone: Instructions* Name Dates Details Patient Instructions Indication:BMI 26.0-26.9,adult Start:13-Apr-2023 Instruction Type:Provider Instructions for Treatment How to Access Health Informa tion Online using Patient Portal and [employer] Apps Indication:BMI 26.0-26.9,adult Start:13-Apr-2023 Instruction Type:Patient Education Patient Instructions Indication:Non-smoker Start:08-Oct-2022 Instruction Type:Provider Instructions for Treatment How to Access Health Informa tion Online using Patient Portal and [employer] Apps Indication:Non-smoker Start:08-Oct-2022 Instruction Type:Patient Education Patient Instructions Indication:BMI 26.0-26.9,adult Start:10-Sep-2022 Instruction Type:Provider Instructions for Treatment How to Access Health Informa tion Online using Patient Portal and [employer] Apps Indication:BMI 26.0-26.9,adult Start:10-Sep-2022 Instruction Type:Patient Education Patient Instructions Indication:BMI 26.0-26.9,adult Start:07-Jul-2022 Instruction Type:Provider Instructions for Treatment How to Access Health Informa tion Online using Patient Portal and [employer] Apps Indication:BMI 26.0-26.9,adult Start:07-Jul-2022 Instruction Type:Patient Education Patient Instructions Indication:Non-smoker Start:17-Apr-2022 Instruction Type:Provider Instructions for Treatment How to Access Health Informa tion Online using Patient Portal and [employer] Apps Indication:Non-smoker Start:17-Apr-2022 Instruction Type:Patient Education Patient Instructions Indication:Non-smoker Start:26-Feb-2022 Instruction Type:Provider Instructions for Treatment How to Access Health Informa tion Online using Patient Portal and [employer] Apps Indication:Non-smoker Start:26-Feb-2022 Instruction Type:Patient Education Patient Instructions Indication:BMI 26.0-26.9,adult Start:15-Aug-2021 Instruction Type:Provider Instructions for Treatment How to Access Health Informa tion Online using Patient Portal and [employer] Apps Indication:BMI 26.0-26.9,adult Start:15-Aug-2021 Instruction Type:Patient Education Patient Instructions Indication:BMI 26.0-26.9,adult Start:13-Feb-2021 Instruction Type:Provider Instructions for Treatment How to Access Health Informa tion Online using Patient Portal and [employer] Apps Indication:BMI 26.0-26.9,adult Start:13-Feb-2021 Instruction Type:Patient Education Patient Instructions Indication:Non-smoker Start:23-Oct-2020 Instruction Type:Provider Instructions for Treatment How to Access Health Informa tion Online using Patient Portal and [employer] Apps Indication:Non-smoker Start:23-Oct-2020 Instruction Type:Patient Education Patient Instructions Indication:Non-smoker Start:23-Jul-2020 Instruction Type:Provider Instructions for Treatment How to Access Health Informa tion Online using Patient Portal and [employer] Apps Indication:Non-smoker Start:23-Jul-2020 Instruction Type:Patient Education How to access health informa tion online Indication:Non-smoker Start:23-Feb-2020 Instruction Type:Patient Education How to access health informa tion online - Detail Indication:Non-smoker Start:23-Feb-2020 Instruction Type:Patient Education Patient Instructions Indication:Non-smoker Start:23-Feb-2020 Instruction Type:Provider Instructions for Treatment How to access health informa tion online Indication:BMI 26.0-26.9,adult Start:18-Jan-2020 Instruction Type:Patient Education How to access health informa tion online - Detail Indication:BMI 26.0-26.9,adult Start:18-Jan-2020 Instruction Type:Patient Education Patient Instructions Indication:BMI 26.0-26.9,adult Start:18-Jan-2020 Instruction Type:Provider Instructions for Treatment How to access health informa tion online Indication:BMI 26.0-26.9,adult Start:18-Jul-2019 Instruction Type:Patient Education How to access health informa tion online - Detail Indication:BMI 26.0-26.9,adult Start:18-Jul-2019 Instruction Type:Patient Education Patient Instructions Indication:BMI 26.0-26.9,adult Start:18-Jul-2019 Instruction Type:Provider Instructions for Treatment How to access health informa tion online Indication:Need for prophylactic vaccination and inoculation against influenza (Renamed from Need for immunization against influenza) Start:09-May-2019 Instruction Type:Patient Education How to access health informa tion online - Detail Indication:Need for prophylactic vaccination and inoculation against influenza (Renamed from Need for immunization against influenza) Start:09-May-2019 Instruction Type:Patient Education Patient Instructions Indication:Need for prophylactic vaccination and inoculation against influenza (Renamed from Need for immunization against influenza) Start:09-May-2019 Instruction Type:Provider Instructions for Treatment How to access health informa tion online Indication:Non-smoker Start:18-Apr-2019 Instruction Type:Patient Education How to access health informa tion online - Detail Indication:Non-smoker Start:18-Apr-2019 Instruction Type:Patient Education Patient Instructions Indication:Non-smoker Start:18-Apr-2019 Instruction Type:Provider Instructions for Treatment How to access health informa tion online Indication:Non-smoker Start:03-Mar-2019 Instruction Type:Patient Education How to access health informa tion online - Detail Indication:Non-smoker Start:03-Mar-2019 Instruction Type:Patient Education Patient Instructions Indication:Non-smoker Start:03-Mar-2019 Instruction Type:Provider Instructions for Treatment How to access health informa tion online Indication:Non-smoker Start:17-Jan-2019 Instruction Type:Patient Education How to access health informa tion online - Detail Indication:Non-smoker Start:17-Jan-2019 Instruction Type:Patient Education Patient Instructions Indication:Non-smoker Start:17-Jan-2019 Instruction Type:Provider Instructions for Treatment How to access health informa tion online Indication:Non-smoker Start:15-Jul-2018 Instruction Type:Patient Education How to access health informa tion online - Detail Indication:Non-smoker Start:15-Jul-2018 Instruction Type:Patient Education Patient Instructions Indication:Non-smoker Start:15-Jul-2018 Instruction Type:Provider Instructions for Treatment How to access health informa tion online Indication:Non-smoker Start:01-Feb-2018 Instruction Type:Patient Education How to access health informa tion online - Detail Indication:Non-smoker Start:01-Feb-2018 Instruction Type:Patient Education Patient Instructions Indication:Non-smoker Start:01-Feb-2018 Instruction Type:Provider Instructions for Treatment How to access health informa tion online - Detail Indication:Non-smoker Start:31-Dec-2017 Instruction Type:Patient Education How to access health informa tion online Indication:Non-smoker Start:31-Dec-2017 Instruction Type:Patient Education Patient Instructions Indication:Non-smoker Start:31-Dec-2017 Instruction Type:Provider Instructions for Treatment How to access health informa tion online Indication:Non-smoker Start:15-Sep-2017 Instruction Type:Patient Education How to access health informa tion online - Detail Indication:Non-smoker Start:15-Sep-2017 Instruction Type:Patient Education Patient Instructions Indication:Non-smoker Start:15-Sep-2017 Instruction Type:Provider Instructions for Treatment How to access health informa tion online Indication:BMI 30.0-30.9,adult Start:04-Sep-2017 Instruction Type:Patient Education How to access health informa tion online - Detail Indication:BMI 30.0-30.9,adult Start:04-Sep-2017 Instruction Type:Patient Education Patient Instructions Indication:BMI 30.0-30.9,adult Start:04-Sep-2017 Instruction Type:Provider Instructions for Treatment [facility]; [facility] Work Phone: Instructions* Name Dates Details Patient Instructions Indication:BMI 26.0-26.9,adult Start:13-Apr-2023 Instruction Type:Provider Instructions for Treatment How to Access Health Informa tion Online using Patient Portal and [employer] Apps Indication:BMI 26.0-26.9,adult Start:13-Apr-2023 Instruction Type:Patient Education Patient Instructions Indication:Non-smoker Start:08-Oct-2022 Instruction Type:Provider Instructions for Treatment How to Access Health Informa tion Online using Patient Portal and [employer] Apps Indication:Non-smoker Start:08-Oct-2022 Instruction Type:Patient Education Patient Instructions Indication:BMI 26.0-26.9,adult Start:10-Sep-2022 Instruction Type:Provider Instructions for Treatment How to Access Health Informa tion Online using Patient Portal and [employer] Apps Indication:BMI 26.0-26.9,adult Start:10-Sep-2022 Instruction Type:Patient Education Patient Instructions Indication:BMI 26.0-26.9,adult Start:07-Jul-2022 Instruction Type:Provider Instructions for Treatment How to Access Health Informa tion Online using Patient Portal and [employer] Apps Indication:BMI 26.0-26.9,adult Start:07-Jul-2022 Instruction Type:Patient Education Patient Instructions Indication:Non-smoker Start:17-Apr-2022 Instruction Type:Provider Instructions for Treatment How to Access Health Informa tion Online using Patient Portal and [employer] Apps Indication:Non-smoker Start:17-Apr-2022 Instruction Type:Patient Education Patient Instructions Indication:Non-smoker Start:26-Feb-2022 Instruction Type:Provider Instructions for Treatment How to Access Health Informa tion Online using Patient Portal and [employer] Apps Indication:Non-smoker Start:26-Feb-2022 Instruction Type:Patient Education Patient Instructions Indication:BMI 26.0-26.9,adult Start:15-Aug-2021 Instruction Type:Provider Instructions for Treatment How to Access Health Informa tion Online using Patient Portal and [employer] Apps Indication:BMI 26.0-26.9,adult Start:15-Aug-2021 Instruction Type:Patient Education Patient Instructions Indication:BMI 26.0-26.9,adult Start:13-Feb-2021 Instruction Type:Provider Instructions for Treatment How to Access Health Informa tion Online using Patient Portal and [employer] Apps Indication:BMI 26.0-26.9,adult Start:13-Feb-2021 Instruction Type:Patient Education Patient Instructions Indication:Non-smoker Start:23-Oct-2020 Instruction Type:Provider Instructions for Treatment How to Access Health Informa tion Online using Patient Portal and [employer] Apps Indication:Non-smoker Start:23-Oct-2020 Instruction Type:Patient Education Patient Instructions Indication:Non-smoker Start:23-Jul-2020 Instruction Type:Provider Instructions for Treatment How to Access Health Informa tion Online using Patient Portal and [employer] Apps Indication:Non-smoker Start:23-Jul-2020 Instruction Type:Patient Education How to access health informa tion online Indication:Non-smoker Start:23-Feb-2020 Instruction Type:Patient Education How to access health informa tion online - Detail Indication:Non-smoker Start:23-Feb-2020 Instruction Type:Patient Education Patient Instructions Indication:Non-smoker Start:23-Feb-2020 Instruction Type:Provider Instructions for Treatment How to access health informa tion online Indication:BMI 26.0-26.9,adult Start:18-Jan-2020 Instruction Type:Patient Education How to access health informa tion online - Detail Indication:BMI 26.0-26.9,adult Start:18-Jan-2020 Instruction Type:Patient Education Patient Instructions Indication:BMI 26.0-26.9,adult Start:18-Jan-2020 Instruction Type:Provider Instructions for Treatment How to access health informa tion online Indication:BMI 26.0-26.9,adult Start:18-Jul-2019 Instruction Type:Patient Education How to access health informa tion online - Detail Indication:BMI 26.0-26.9,adult Start:18-Jul-2019 Instruction Type:Patient Education Patient Instructions Indication:BMI 26.0-26.9,adult Start:18-Jul-2019 Instruction Type:Provider Instructions for Treatment How to access health informa tion online Indication:Need for prophylactic vaccination and inoculation against influenza (Renamed from Need for immunization against influenza) Start:09-May-2019 Instruction Type:Patient Education How to access health informa tion online - Detail Indication:Need for prophylactic vaccination and inoculation against influenza (Renamed from Need for immunization against influenza) Start:09-May-2019 Instruction Type:Patient Education Patient Instructions Indication:Need for prophylactic vaccination and inoculation against influenza (Renamed from Need for immunization against influenza) Start:09-May-2019 Instruction Type:Provider Instructions for Treatment How to access health informa tion online Indication:Non-smoker Start:18-Apr-2019 Instruction Type:Patient Education How to access health informa tion online - Detail Indication:Non-smoker Start:18-Apr-2019 Instruction Type:Patient Education Patient Instructions Indication:Non-smoker Start:18-Apr-2019 Instruction Type:Provider Instructions for Treatment How to access health informa tion online Indication:Non-smoker Start:03-Mar-2019 Instruction Type:Patient Education How to access health informa tion online - Detail Indication:Non-smoker Start:03-Mar-2019 Instruction Type:Patient Education Patient Instructions Indication:Non-smoker Start:03-Mar-2019 Instruction Type:Provider Instructions for Treatment How to access health informa tion online Indication:Non-smoker Start:17-Jan-2019 Instruction Type:Patient Education How to access health informa tion online - Detail Indication:Non-smoker Start:17-Jan-2019 Instruction Type:Patient Education Patient Instructions Indication:Non-smoker Start:17-Jan-2019 Instruction Type:Provider Instructions for Treatment How to access health informa tion online Indication:Non-smoker Start:15-Jul-2018 Instruction Type:Patient Education How to access health informa tion online - Detail Indication:Non-smoker Start:15-Jul-2018 Instruction Type:Patient Education Patient Instructions Indication:Non-smoker Start:15-Jul-2018 Instruction Type:Provider Instructions for Treatment How to access health informa tion online Indication:Non-smoker Start:01-Feb-2018 Instruction Type:Patient Education How to access health informa tion online - Detail Indication:Non-smoker Start:01-Feb-2018 Instruction Type:Patient Education Patient Instructions Indication:Non-smoker Start:01-Feb-2018 Instruction Type:Provider Instructions for Treatment How to access health informa tion online - Detail Indication:Non-smoker Start:31-Dec-2017 Instruction Type:Patient Education How to access health informa tion online Indication:Non-smoker Start:31-Dec-2017 Instruction Type:Patient Education Patient Instructions Indication:Non-smoker Start:31-Dec-2017 Instruction Type:Provider Instructions for Treatment How to access health informa tion online Indication:Non-smoker Start:15-Sep-2017 Instruction Type:Patient Education How to access health informa tion online - Detail Indication:Non-smoker Start:15-Sep-2017 Instruction Type:Patient Education Patient Instructions Indication:Non-smoker Start:15-Sep-2017 Instruction Type:Provider Instructions for Treatment How to access health informa tion online Indication:BMI 30.0-30.9,adult Start:04-Sep-2017 Instruction Type:Patient Education How to access health informa tion online - Detail Indication:BMI 30.0-30.9,adult Start:04-Sep-2017 Instruction Type:Patient Education Patient Instructions Indication:BMI 30.0-30.9,adult Start:04-Sep-2017 Instruction Type:Provider Instructions for Treatment [facility]; [facility] Work Phone: [facility] Plan of care note* Visit Details Visit Type -SN SOC IV Discipline -Long-Term Problems Problem Description Start Date Status Goals Interve ntions Medication Education Disciplines: Skilled Services 05/18/2022 Active 1 goal linked to scheduled/documen jluis intervention 1 goal intervention scheduled/document ed in this visit Sepsis Disciplines: Skilled Services 05/18/2022 Active 1 goal linked to scheduled/documen jluis intervention 1 goal intervention scheduled/document ed in this visit Physician Specific Parameters Disciplines: Skilled Services 05/18/2022 Active 1 goal linked to scheduled/documen jluis intervention 1 goal intervention scheduled/document ed in this visit Risk for Falls Disciplines: Skilled Services 05/18/2022 Active 1 goal linked to scheduled/documen jluis intervention 1 goal intervention scheduled/document ed in this visit Pain Disciplines: Skilled Services 05/18/2022 Active 1 goal linked to scheduled/documen jluis intervention 1 goal intervention scheduled/document ed in this visit Nutrition/Hydration Disciplines: Skilled Services 05/18/2022 Active 1 goal linked to scheduled/documen jluis intervention 1 goal intervention scheduled/document ed in this visit High Risk Medications Disciplines: Skilled Services 05/18/2022 Active 1 goal linked to scheduled/documen jluis intervention 1 goal intervention scheduled/document ed in this visit Advance Directives Disciplines: Skilled Services 05/18/2022 Active 1 goal linked to scheduled/documen jluis intervention 1 goal intervention scheduled/document ed in this visit SN IV THERAPY Disciplines: SN 05/18/2022 Active 1 goal linked to scheduled/documen jluis intervention 1 goal intervention scheduled/document ed in this visit SN Edema Disciplines: SN 05/18/2022 Active 1 goal linked to scheduled/documen jluis intervention 1 goal intervention scheduled/document ed in this visit SN Cardiovascular Condition Disciplines: SN 05/18/2022 Active 1 goal linked to scheduled/documen jluis intervention 1 goal intervention scheduled/document ed in this visit SN Learning Assessment Disciplines: SN 05/18/2022 Active 1 goal linked to scheduled/documen jluis intervention 1 goal intervention scheduled/document ed in this visit SN Ortho Procedure/Surgery Disciplines: SN 05/18/2022 Active 1 goal linked to scheduled/documen jluis intervention 1 goal intervention scheduled/document ed in this visit SN Respiratory Disease Disciplines: SN 05/18/2022 Active 1 goal linked to scheduled/documen jluis intervention 1 goal intervention scheduled/document ed in this visit Goals Goal Associated Problem Outcome Goal Met? Visit Notes Patient/caregiver will demonstrate ability to obtain, store, identify and administer ordered medications, keep accurate medication list in home, and adhere to medication schedule Description: Patient/caregiver will demonstrate ability to obtain, store, identify and administer ordered medications, keep accurate medication list in home, and adhere to medication schedule by 07/16 . Medication Education No Patient/caregiver will be able to identify and report symptoms of sepsis Description: Patient/caregiver will be able to identify signs/symptoms of sepsis infection and will verbalize actions to take if suspected by 07/16. Sepsis No Patient to maintain parameters within physician-specified ranges throughout certification period Physician Specific Parameters No Manage Risk for falls Description: Patient/caregiver will verbalize knowledge of individualized fall prevention strategies by 07/16. Risk for Falls No Manage Pain Description: Patient/caregiver will verbalize knowledge and understanding of appropriate techniques to control pain, including pain medication and non-pharmacological techniques. Patient will verbalize or demonstrate an acceptable level of pain as evidenced by a pain score of 0/10 and improvement in ability to perform activities of daily living to be achieved by 07/16. Pain No Manage Nutrition/Hydration Description: Patient/caregiver will verbalize/demonstrate knowledge of prescribed diet and/or healthy nutrition to be achieved by 07/16. Nutrition/Hydration No Patient/caregiver will teach back high risk medication side effect and precaution education High Risk Medications No Patient/caregiver will make healthcare providers aware of and any changes to Advance Directives throughout certification period Advance Directives No Patient/Caregiver will remain free of IV therapy complications Description: Patient/caregiver will verbalize understanding of infusion therapy & demonstrate appropriate access device management as evidenced by patient remaining free of IV complications by CoPat end 6 weeks SN IV THERAPY No Patient will have improved edema management Description: Patient/caregiver will demonstrate an understanding of edema management strategies as evidenced by resolution or stabilization of edema by 07/16 . SN Edema No Improved management of cardiovascular disease Description: Improve patient/caregiver management of cardiac disease as evidenced by patient/caregiver ability to teach back cardiac management strategies by 07/16. SN Cardiovascular Condition No Demonstrate understanding of education Description: Patient and/or caregiver will verbalize understanding of educational instruction provided throughout certification period. SN Learning Assessment No Effective management of ortho post-op condition Description: Increase understanding of management of condition following orthopedic procedure/surgery as evidenced by patient's/caregiver's ability to teachback precautions and s/s of complications by 07/16. SN Ortho Procedure/Surgery No Improved management of respiratory condition Description: Improve respiratory management as evidenced by patient/caregiver's ability to teach back strategies for improving respiratory status by 07/16. SN Respiratory Disease No Interventions Intervention Associated Problem/Goal Status Variance Visit Notes Medication Education Description: Evaluate/instruct patient/caregiver on obtaining, storing, identifying and administering ordered medications as well as keeping accurate medication list in the home and adhereing to medication schedule Problem:Medication Education Goal:Patient/caregive r will demonstrate ability to obtain, store, identify and administer ordered medications, keep accurate medication list in home, and adhere to medication schedule Completed Patient instructed on importance of keeping accurate medication list in home and adhering to medication schedule. Risk of Sepsis Description: Patient is at risk for sepsis. Monitor closely for s/s of sepsis. Problem:Sepsis Goal:Patient/caregive r will be able to identify and report symptoms of sepsis Completed SPO2 Description: Notify if pulse ox is <92% at rest. Problem:Physician Specific Parameters Goal:Patient to maintain parameters within physician-specified ranges throughout certification period Completed Instruct on individual fall risk factors and strategies to prevent falls and injuries caused by falls. Problem:Risk for Falls Goal:Manage Risk for falls Completed SN: Patient instructed on Managing Impaired Functional Mobility: Use assistive device(s): standard walker Managing Pain: Recommended pain medication schedule and management of side effects to minimize fall risk Instruct on pain and instruct on strategies to control pain Problem:Pain Goal:Manage Pain Completed patient instructed on techniques to control pain including Pharmacological measures and Non-Pharmacological measures; rest and positioning/elevation. Define patient s appetite/hydration status and implement strategies to improve compliance with prescribed diet and/or healthy nutrition. Problem:Nutrition/Hyd ration Goal:Manage Nutrition/Hydration Completed instructed patient on implementing strategies to comply with healthy nutrition and adequate hydration Opioids- Instruct on high risk medication Problem:High Risk Medications Goal:Patient/caregive r will teach back high risk medication side effect and precaution education Completed patient instructed on the following: Possible side effects of opioid medication including sedation, decreased rate of breathing, and constipation. Instructed on reporting over sedation to prescribing physician, practice deep breathing techniques every hour while awake, and prevention of constipation by increasing water and fiber intake, increase activity as tolerated, and use stool softener as prescribed. Only take opioids as prescribed, do not share your medications, and take proper precautions in storing and properly disposing of opioids once no longer needed. Follow providers guidelines for driving and weaning from prescribed opioid. Determine patient's Advance Directive Status Description: Patient does not have advance directives. Patient/Caregiver declined Advance Directive information. Problem:Advance Directives Goal:Patient/caregive r will make healthcare providers aware of and any changes to Advance Directives throughout certification period Completed Discussed Advance Directives with Patient and/or Caregiver. Referred patient to Home Care handbook for further information on Healthcare DPOA & Living Will. Instruct patient/cargiver on management of infusion and access device Problem:SN IV THERAPY Goal:Patient/Caregive r will remain free of IV therapy complications Completed patient and caregiver instructed on the following: purpose and goal of infusion therapy, how to contact [facility], how and when to contact the pharmacy, aseptic handling and maintaining a clean area for infusion therapy supplies, preparation and administration of infusion, safe handling, storage and disposal of infusion therapy supplies, medications, flushes and hazardous waste and flushing the venous access device Assess and instruct on measures to reduce edema Problem:SN Edema Goal:Patient will have improved edema management Completed patient instructed on elevation, compression, ice, diet and benefits of activity. Instruct on cardiovascular disease process and management of condition Description: Patient has following cardiac diagnosis(es): Hypertension. Problem:SN Cardiovascular Condition Goal:Improved management of cardiovascular disease Completed patient instructed on cardiac disease process. Instruct and educate on knowledge deficits Problem:SN Learning Assessment Goal:Demonstrate understanding of education Completed patient verbalize and/or demonstrate understanding of nursing education completed today. Education methods include: verbal cues. Further education required to improve knowledge and compliance with cardiac disease management, fall prevention/home safety strategies, incision/wound care management, infusion care management, medication management, nutrition, orthopedic condition management, pain management and pulmonary disease management. 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 [facility] Visit Details Visit Type -SN IV OC 1 Discipline -Long-Term Problems Problem Description Start Date Status Goals Interve ntions SN IV THERAPY Disciplines: SN 05/18/2022 Active 1 goal linked to scheduled/documente d intervention 1 goal intervention scheduled/documente d in this visit Goals Goal Associated Problem Outcome Goal Met? Visit Notes Patient/Caregiver will remain free of IV therapy complications Description: Patient/caregiver will verbalize understanding of infusion therapy & demonstrate appropriate access device management as evidenced by patient remaining free of IV complications by CoPat end 6 weeks SN IV THERAPY No Interventions Intervention Associated Problem/Goal Status Variance Visit Notes Instruct patient/cargiver on management of infusion and access device Problem:SN IV THERAPY Goal:Patient/Caregive r will remain free of IV therapy complications Completed patient instructed on the following: name, purpose and goal of infusion therapy, how to contact [facility], how and when to contact the pharmacy, aseptic handling and maintaining a clean area for infusion therapy supplies, preparation and administration of infusion, safe handling, storage and disposal of infusion therapy supplies, medications, flushes and hazardous waste, flushing the venous access device and maintaining accurate records (I&O, weights, infusion times) [facility] Visit Details Visit Type -SN ROUTINE IV Discipline -Long-Term Problems Problem Description Start Date Status Goals Interve ntions Medication Education Disciplines: Skilled Services 05/18/2022 Active 1 goal linked to scheduled/documen jluis intervention 1 goal intervention scheduled/document ed in this visit Sepsis Disciplines: Skilled Services 05/18/2022 Active 1 goal linked to scheduled/documen jluis intervention 1 goal intervention scheduled/document ed in this visit Physician Specific Parameters Disciplines: Skilled Services 05/18/2022 Active 1 goal linked to scheduled/documen jluis intervention 1 goal intervention scheduled/document ed in this visit Risk for Falls Disciplines: Skilled Services 05/18/2022 Active 1 goal linked to scheduled/documen jluis intervention 1 goal intervention scheduled/document ed in this visit Pain Disciplines: Skilled Services 05/18/2022 Active 1 goal linked to scheduled/documen jluis intervention 1 goal intervention scheduled/document ed in this visit Nutrition/Hydration Disciplines: Skilled Services 05/18/2022 Active 1 goal linked to scheduled/documen jluis intervention 1 goal intervention scheduled/document ed in this visit High Risk Medications Disciplines: Skilled Services 05/18/2022 Active 1 goal linked to scheduled/documen jluis intervention 1 goal intervention scheduled/document ed in this visit Discharge Disciplines: Skilled Services 05/18/2022 Active 1 goal linked to scheduled/documen jluis intervention 1 goal intervention scheduled/document ed in this visit SN IV THERAPY Disciplines: SN 05/18/2022 Active 1 goal linked to scheduled/documen jluis intervention 2 goal interventions scheduled/document ed in this visit SN Cardiovascular Condition Disciplines: SN 05/18/2022 Active 1 goal linked to scheduled/documen jluis intervention 1 goal intervention scheduled/document ed in this visit SN Learning Assessment Disciplines: 05/18/2022 Active 1 goal linked to scheduled/documen jluis intervention 1 goal intervention scheduled/document ed in this visit SN Ortho Procedure/Surgery Disciplines: 05/18/2022 Active 1 goal linked to scheduled/documen jluis intervention 1 goal intervention scheduled/document ed in this visit SN Labwork Disciplines: 05/18/2022 Active 1 goal linked to scheduled/documen jluis intervention 1 goal intervention scheduled/document ed in this visit SN Respiratory Disease Disciplines: 05/18/2022 Active 1 goal linked to scheduled/documen jluis intervention 1 goal intervention scheduled/document ed in this visit Goals Goal Associated Problem Outcome Goal Met? Visit Notes Patient/caregiver will demonstrate ability to obtain, store, identify and administer ordered medications, keep accurate medication list in home, and adhere to medication schedule Description: Patient/caregiver will demonstrate ability to obtain, store, identify and administer ordered medications, keep accurate medication list in home, and adhere to medication schedule by 07/16 . Medication Education No Patient/caregiver will be able to identify and report symptoms of sepsis Description: Patient/caregiver will be able to identify signs/symptoms of sepsis infection and will verbalize actions to take if suspected by 07/16. Sepsis No Patient to maintain parameters within physician-specified ranges throughout certification period Physician Specific Parameters No Manage Risk for falls Description: Patient/caregiver will verbalize knowledge of individualized fall prevention strategies by 07/16. Risk for Falls No Manage Pain Description: Patient/caregiver will verbalize knowledge and understanding of appropriate techniques to control pain, including pain medication and non-pharmacological techniques. Patient will verbalize or demonstrate an acceptable level of pain as evidenced by a pain score of 0/10 and improvement in ability to perform activities of daily living to be achieved by 07/16. Pain No Manage Nutrition/Hydration Description: Patient/caregiver will verbalize/demonstrate knowledge of prescribed diet and/or healthy nutrition to be achieved by 07/16. Nutrition/Hydration No Patient/caregiver will teach back high risk medication side effect and precaution education High Risk Medications No Manage discharge planning Description: Patient/caregiver will verbalize understanding of ongoing discharge plan provided related to disease management, arrangements for outpatient and/or community services, obtaining medications, supplies, and DME, as needed throughout certification period. Discharge No Patient/Caregiver will remain free of IV therapy complications Description: Patient/caregiver will verbalize understanding of infusion therapy & demonstrate appropriate access device management as evidenced by patient remaining free of IV complications by CoPat end 6 weeks SN IV THERAPY No Improved management of cardiovascular disease Description: Improve patient/caregiver management of cardiac disease as evidenced by patient/caregiver ability to teach back cardiac management strategies by 07/16. SN Cardiovascular Condition No Demonstrate understanding of education Description: Patient and/or caregiver will verbalize understanding of educational instruction provided throughout certification period. SN Learning Assessment No Effective management of ortho post-op condition Description: Increase understanding of management of condition following orthopedic procedure/surgery as evidenced by patient's/caregiver's ability to teachback precautions and s/s of complications by 07/16. SN Ortho Procedure/Surgery No SN to obtain lab specimen without difficulty when ordered throughout certification period SN Labwork No Improved management of respiratory condition Description: Improve respiratory management as evidenced by patient/caregiver's ability to teach back strategies for improving respiratory status by 07/16. SN Respiratory Disease No Interventions Intervention Associated Problem/Goal Status Variance Visit Notes Medication Education Description: Evaluate/instruct patient/caregiver on obtaining, storing, identifying and administering ordered medications as well as keeping accurate medication list in the home and adhereing to medication schedule Problem:Medication Education Goal:Patient/caregive r will demonstrate ability to obtain, store, identify and administer ordered medications, keep accurate medication list in home, and adhere to medication schedule Completed Patient and Caregiver instructed on importance of keeping accurate medication list in home, adhering to medication schedule and proper storage of medications. Risk of Sepsis Description: Patient is at risk for sepsis. Monitor closely for s/s of sepsis. Problem:Sepsis Goal:Patient/caregive r will be able to identify and report symptoms of sepsis Completed SPO2 Description: Notify Dr. Yanira Garcia if pulse ox is <92% at rest. Problem:Physician Specific Parameters Goal:Patient to maintain parameters within physician-specified ranges throughout certification period Completed Instruct on individual fall risk factors and strategies to prevent falls and injuries caused by falls. Problem:Risk for Falls Goal:Manage Risk for falls Completed SN: Patient and Caregiver instructed on Eliminating Environmental Hazards: Keep pathways clear, Move furniture from pathways, Keep rooms and walkways well lit, Wear supportive shoes or non-skid socks and Keep frequently used items within reach Managing Impaired Functional Mobility: Use assistive device(s): front wheeled walker and Caregiver to provide assist with: Ambulation, Steps, Transfers and ADL/IADLs Instruct on pain and instruct on strategies to control pain Problem:Pain Goal:Manage Pain Completed patient and caregiver instructed on techniques to control pain including Pharmacological measures and Non-Pharmacological measures; rest, positioning/elevation and mobility/therapeutic exercise. Define patient s appetite/hydration status and implement strategies to improve compliance with prescribed diet and/or healthy nutrition. Problem:Nutrition/Hyd ration Goal:Manage Nutrition/Hydration Completed reinforced patient and caregiver on implementing strategies to comply with prescribed diet, healthy nutrition and adequate hydration Opioids- Instruct on high risk medication Problem:High Risk Medications Goal:Patient/caregive r will teach back high risk medication side effect and precaution education Completed patient and caregiver instructed on the following: Possible side effects of opioid medication including sedation, decreased rate of breathing, and constipation. Instructed on reporting over sedation to prescribing physician, practice deep breathing techniques every hour while awake, and prevention of constipation by increasing water and fiber intake, increase activity as tolerated, and use stool softener as prescribed. Only take opioids as prescribed, do not share your medications, and take proper precautions in storing and properly disposing of opioids once no longer needed. Follow providers guidelines for driving and weaning from prescribed opioid. Instruct on ongoing discharge plan Problem:Discharge Goal:Manage discharge planning Completed Ongoing Discharge plan: Discharge plan discussed with patient and caregiver including frequency and duration for home SN and plan for transition to: live independently at home without ongoing services. Complete PICC catheter care per order Description: Measure external catheter length with every dressing change. Measure upper arm circumference 10 cm above the anticubital fossa at initial assessment and when clinically indicated. Change extension tubing weekly and PRN. Change dressing weekly and PRN for lifting edges of dressing, visible soiling, presence of moisture, drainage or blood, compromised skin integrity. Cleanse site with 2% chlorhexidine gluconate for 30 seconds. Allow to air dry completely. Apply skin barrier solution and allow to air dry completely. Cover/secure with StatLock , BIOPATCH and transparent semi-permeable dressing. Problem:SN IV THERAPY Goal:Patient/Caregive r will remain free of IV therapy complications Completed Instruct patient/cargiver on management of infusion and access device Problem:SN IV THERAPY Goal:Patient/Caregive r will remain free of IV therapy complications Completed patient and caregiver instructed on the following: name, purpose and goal of infusion therapy, how to contact [facility], how and when to contact the pharmacy, aseptic handling and maintaining a clean area for infusion therapy supplies, preparation and administration of infusion, safe handling, storage and disposal of infusion therapy supplies, medications, flushes and hazardous waste and flushing the venous access device Instruct on cardiovascular disease process and management of condition Description: Patient has following cardiac diagnosis(es): Hypertension. Problem:SN Cardiovascular Condition Goal:Improved management of cardiovascular disease Completed patient and caregiver instructed on cardiac disease process and self monitoring & symptom reporting. Instruct and educate on knowledge deficits Problem:SN Learning Assessment Goal:Demonstrate understanding of education Completed patient and caregiver verbalize and/or demonstrate understanding of nursing education completed today. Education methods include: verbal cues. Further education required to improve knowledge and compliance with cardiac disease management, fall prevention/home safety strategies, gastrointestinal care management, hematological care management, incision/wound care management, infusion care management, medication management, nutrition, pain management and surgical care precautions. 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 Grimaldo Results to Fax lab results to pharmacy: [phone]). Dx code(s): T84.53XA] . If unable to draw blood through IV access device, may draw blood peripherally. Problem:SN Labwork Goal:SN to obtain lab specimen without difficulty when ordered throughout certification period Completed Instruct on respiratory disease process and management of condition Description: Patient has following respiratory diagnosis(es): asthma Problem:SN Respiratory Disease Goal:Improved management of respiratory condition Completed patient and caregiver assessed and reinforced on respiratory disease process and self monitoring & symptom reporting. [facility] Visit Details Visit Type -SN IV PRN ON TAMMY L Discipline -Long-Term Problems Problem Description Start Date Status Goals Interve ntions SN IV THERAPY Disciplines: SN 05/18/2022 Active 1 goal linked to scheduled/documente d intervention 1 goal intervention scheduled/documente d in this visit Goals Goal Associated Problem Outcome Goal Met? Visit Notes Patient/Caregiver will remain free of IV therapy complications Description: Patient/caregiver will verbalize understanding of infusion therapy & demonstrate appropriate access device management as evidenced by patient remaining free of IV complications by CoPat end 6 weeks SN IV THERAPY No Interventions Intervention Associated Problem/Goal Status Variance Visit Notes Instruct patient/cargiver on management of infusion and access device Problem:SN IV THERAPY Goal:Patient/Caregive r will remain free of IV therapy complications Completed patient instructed on the following: aseptic handling and maintaining a clean area for infusion therapy supplies, preparation and administration of infusion, safe handling, storage and disposal of infusion therapy supplies, medications, flushes and hazardous waste and flushing the venous access device documented in this encounter [facility] Plan of care note* Visit Details Visit Type -SN ROUTINE IV Discipline -Long-Term Problems Problem Description Start Date Status Goals Interve ntions Medication Education Disciplines: Skilled Services 05/18/2022 Active 1 goal linked to scheduled/documen jluis intervention 1 goal intervention scheduled/document ed in this visit Sepsis Disciplines: Skilled Services 05/18/2022 Active 1 goal linked to scheduled/documen jluis intervention 1 goal intervention scheduled/document ed in this visit Physician Specific Parameters Disciplines: Skilled Services 05/18/2022 Active 1 goal linked to scheduled/documen jluis intervention 1 goal intervention scheduled/document ed in this visit Risk for Falls Disciplines: Skilled Services 05/18/2022 Active 1 goal linked to scheduled/documen jluis intervention 1 goal intervention scheduled/document ed in this visit Pain Disciplines: Skilled Services 05/18/2022 Active 1 goal linked to scheduled/documen jluis intervention 1 goal intervention scheduled/document ed in this visit Nutrition/Hydration Disciplines: Skilled Services 05/18/2022 Active 1 goal linked to scheduled/documen jluis intervention 1 goal intervention scheduled/document ed in this visit High Risk Medications Disciplines: Skilled Services 05/18/2022 Active 1 goal linked to scheduled/documen jluis intervention 1 goal intervention scheduled/document ed in this visit Discharge Disciplines: Skilled Services 05/18/2022 Active 1 goal linked to scheduled/documen jluis intervention 1 goal intervention scheduled/document ed in this visit SN IV THERAPY Disciplines: SN 05/18/2022 Active 1 goal linked to scheduled/documen jluis intervention 1 goal intervention scheduled/document ed in this visit SN Edema Disciplines: SN 05/18/2022 Active 1 goal linked to scheduled/documen jluis intervention 1 goal intervention scheduled/document ed in this visit SN Integumentary/Wound s Disciplines: 05/18/2022 Active 1 goal linked to scheduled/documen jluis intervention 1 goal intervention scheduled/document ed in this visit SN Cardiovascular Condition Disciplines: 05/18/2022 Active 1 goal linked to scheduled/documen jluis intervention 1 goal intervention scheduled/document ed in this visit SN Learning Assessment Disciplines: 05/18/2022 Active 1 goal linked to scheduled/documen jluis intervention 1 goal intervention scheduled/document ed in this visit SN Ortho Procedure/Surgery Disciplines: 05/18/2022 Active 1 goal linked to scheduled/documen jluis intervention 1 goal intervention scheduled/document ed in this visit SN Respiratory Disease Disciplines: 05/18/2022 Active 1 goal linked to scheduled/documen jluis intervention 1 goal intervention scheduled/document ed in this visit Goals Goal Associated Problem Outcome Goal Met? Visit Notes Patient/caregiver will demonstrate ability to obtain, store, identify and administer ordered medications, keep accurate medication list in home, and adhere to medication schedule Description: Patient/caregiver will demonstrate ability to obtain, store, identify and administer ordered medications, keep accurate medication list in home, and adhere to medication schedule by 07/16 . Medication Education No Patient/caregiver will be able to identify and report symptoms of sepsis Description: Patient/caregiver will be able to identify signs/symptoms of sepsis infection and will verbalize actions to take if suspected by 07/16. Sepsis No Patient to maintain parameters within physician-specified ranges throughout certification period Physician Specific Parameters No Manage Risk for falls Description: Patient/caregiver will verbalize knowledge of individualized fall prevention strategies by 07/16. Risk for Falls No Manage Pain Description: Patient/caregiver will verbalize knowledge and understanding of appropriate techniques to control pain, including pain medication and non-pharmacological techniques. Patient will verbalize or demonstrate an acceptable level of pain as evidenced by a pain score of 0/10 and improvement in ability to perform activities of daily living to be achieved by 07/16. Pain No Manage Nutrition/Hydration Description: Patient/caregiver will verbalize/demonstrate knowledge of prescribed diet and/or healthy nutrition to be achieved by 07/16. Nutrition/Hydration No Patient/caregiver will teach back high risk medication side effect and precaution education High Risk Medications No Manage discharge planning Description: Patient/caregiver will verbalize understanding of ongoing discharge plan provided related to disease management, arrangements for outpatient and/or community services, obtaining medications, supplies, and DME, as needed throughout certification period. Discharge No Patient/Caregiver will remain free of IV therapy complications Description: Patient/caregiver will verbalize understanding of infusion therapy & demonstrate appropriate access device management as evidenced by patient remaining free of IV complications by CoPat end 6 weeks SN IV THERAPY No Patient will have improved edema management Description: Patient/caregiver will demonstrate an understanding of edema management strategies as evidenced by resolution or stabilization of edema by 07/16 . SN Edema No Patient/Caregiver will have improved healing and be free of signs and symptoms of complications Description: Patient/caregiver will verbalize management strategies to promote wound healing & prevent complications as evidenced by improved healing & no complications by 07/16 . SN Integumentary/Wounds No Improved management of cardiovascular disease Description: Improve patient/caregiver management of cardiac disease as evidenced by patient/caregiver ability to teach back cardiac management strategies by 07/16. SN Cardiovascular Condition No Demonstrate understanding of education Description: Patient and/or caregiver will verbalize understanding of educational instruction provided throughout certification period. SN Learning Assessment No Effective management of ortho post-op condition Description: Increase understanding of management of condition following orthopedic procedure/surgery as evidenced by patient's/caregiver's ability to teachback precautions and s/s of complications by 07/16. SN Ortho Procedure/Surgery No Improved management of respiratory condition Description: Improve respiratory management as evidenced by patient/caregiver's ability to teach back strategies for improving respiratory status by 07/16. SN Respiratory Disease No Interventions Intervention Associated Problem/Goal Status Variance Visit Notes Medication Education Description: Evaluate/instruct patient/caregiver on obtaining, storing, identifying and administering ordered medications as well as keeping accurate medication list in the home and adhereing to medication schedule Problem:Medication Education Goal:Patient/caregive r will demonstrate ability to obtain, store, identify and administer ordered medications, keep accurate medication list in home, and adhere to medication schedule Completed Patient and Caregiver instructed on importance of keeping accurate medication list in home, adhering to medication schedule and proper storage of medications. Risk of Sepsis Description: Patient is at risk for sepsis. Monitor closely for s/s of sepsis. Problem:Sepsis Goal:Patient/caregive r will be able to identify and report symptoms of sepsis Completed SPO2 Description: Notify Dr. Yanira Garcia if pulse ox is <92% at rest. Problem:Physician Specific Parameters Goal:Patient to maintain parameters within physician-specified ranges throughout certification period Completed Instruct on individual fall risk factors and strategies to prevent falls and injuries caused by falls. Problem:Risk for Falls Goal:Manage Risk for falls Completed SN: Patient and Caregiver instructed on Eliminating Environmental Hazards: Keep pathways clear, Move furniture from pathways, Keep rooms and walkways well lit, Wear supportive shoes or non-skid socks and Keep frequently used items within reach Managing Impaired Functional Mobility: Use assistive device(s): front wheeled walker and Caregiver to provide assist with: Ambulation, Steps, Transfers and ADL/IADLs Instruct on pain and instruct on strategies to control pain Problem:Pain Goal:Manage Pain Completed patient and caregiver instructed on techniques to control pain including Pharmacological measures and Non-Pharmacological measures; rest, positioning/elevation and mobility/therapeutic exercise. Define patient s appetite/hydration status and implement strategies to improve compliance with prescribed diet and/or healthy nutrition. Problem:Nutrition/Hyd ration Goal:Manage Nutrition/Hydration Completed reinforced patient and caregiver on implementing strategies to comply with prescribed diet, healthy nutrition and adequate hydration Opioids- Instruct on high risk medication Problem:High Risk Medications Goal:Patient/caregive r will teach back high risk medication side effect and precaution education Completed patient and caregiver instructed on the following: Possible side effects of opioid medication including sedation, decreased rate of breathing, and constipation. Instructed on reporting over sedation to prescribing physician, practice deep breathing techniques every hour while awake, and prevention of constipation by increasing water and fiber intake, increase activity as tolerated, and use stool softener as prescribed. Only take opioids as prescribed, do not share your medications, and take proper precautions in storing and properly disposing of opioids once no longer needed. Follow providers guidelines for driving and weaning from prescribed opioid. Instruct on ongoing discharge plan Problem:Discharge Goal:Manage discharge planning Completed Ongoing Discharge plan: Discharge plan discussed with patient and caregiver including frequency and duration for home SN and plan for transition to: live independently at home without ongoing services. Instruct patient/cargiver on management of infusion and access device Problem:SN IV THERAPY Goal:Patient/Caregive r will remain free of IV therapy complications Completed patient and caregiver instructed on the following: name, purpose and goal of infusion therapy, how to contact [facility], how and when to contact the pharmacy, aseptic handling and maintaining a clean area for infusion therapy supplies, preparation and administration of infusion, safe handling, storage and disposal of infusion therapy supplies, medications, flushes and hazardous waste and flushing the venous access device Assess and instruct on measures to reduce edema Problem:SN Edema Goal:Patient will have improved edema management Completed patient and caregiver instructed on elevation, compression, ice, medication compliance and benefits of activity. Wound Care: Perform wound care (1) Description: Wound Care Order: Incision location: RT knee Wound type (etiology): Incision Order: remove dressing 05/22 then clifford Wound care to be completed by patient and/or caregiver except for scheduled SN wound care visits . Measure wound/incision at least weekly. Okay to substitute comparable products from home care formulary. Problem:SN Integumentary/Wounds Goal:Patient/Caregive r will have improved healing and be free of signs and symptoms of complications Completed Completed by SN. Patient did tolerate well. Instruct on cardiovascular disease process and management of condition Description: Patient has following cardiac diagnosis(es): Hypertension. Problem:SN Cardiovascular Condition Goal:Improved management of cardiovascular disease Completed patient and caregiver instructed on cardiac disease process and self monitoring & symptom reporting. Instruct and educate on knowledge deficits Problem:SN Learning Assessment Goal:Demonstrate understanding of education Completed patient and caregiver verbalize and/or demonstrate understanding of nursing education completed today. Education methods include: verbal cues. Further education required to improve knowledge and compliance with cardiac disease management, fall prevention/home safety strategies, gastrointestinal care management, hematological care management, incision/wound care management, infusion care management, integumentary care management, medication management, nutrition, pain management and surgical care precautions. 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 [facility] Visit Details Visit Type -SN ROUTINE IV Discipline -Long-Term Problems Problem Description Start Date Status Goals Interve ntions Medication Education Disciplines: Skilled Services 05/18/2022 Active 1 goal linked to scheduled/docume nted intervention 1 goal intervention scheduled/documen jluis in this visit Sepsis Disciplines: Skilled Services 05/18/2022 Active 1 goal linked to scheduled/docume nted intervention 1 goal intervention scheduled/documen jluis in this visit Physician Specific Parameters Disciplines: Skilled Services 05/18/2022 Active 1 goal linked to scheduled/docume nted intervention 1 goal intervention scheduled/documen jluis in this visit Risk for Falls Disciplines: Skilled Services 05/18/2022 Active 1 goal linked to scheduled/docume nted intervention 1 goal intervention scheduled/documen jluis in this visit Pain Disciplines: Skilled Services 05/18/2022 Active 1 goal linked to scheduled/docume nted intervention 1 goal intervention scheduled/documen jluis in this visit Nutrition/Hydration Disciplines: Skilled Services 05/18/2022 Active 1 goal linked to scheduled/docume nted intervention 1 goal intervention scheduled/documen jluis in this visit High Risk Medications Disciplines: Skilled Services 05/18/2022 Resolved on 05/21/2022 1 goal linked to scheduled/docume nted intervention Discharge Disciplines: Skilled Services 05/18/2022 Active 1 goal linked to scheduled/docume nted intervention 1 goal intervention scheduled/documen jluis in this visit SN IV THERAPY Disciplines: SN 05/18/2022 Active 1 goal linked to scheduled/docume nted intervention 1 goal intervention scheduled/documen jluis in this visit SN Edema Disciplines: SN 05/18/2022 Active 1 goal linked to scheduled/docume nted intervention 1 goal intervention scheduled/documen jluis in this visit SN Integumentary/Wound s Disciplines: SN 05/18/2022 Resolved on 05/21/2022 1 goal linked to scheduled/docume nted intervention SN Cardiovascular Condition Disciplines: SN 05/18/2022 Active 1 goal linked to scheduled/docume nted intervention 1 goal intervention scheduled/documen jluis in this visit SN Learning Assessment Disciplines: SN 05/18/2022 Active 1 goal linked to scheduled/docume nted intervention 1 goal intervention scheduled/documen jluis in this visit SN Ortho Procedure/Surgery Disciplines: SN 05/18/2022 Active 1 goal linked to scheduled/docume nted intervention 1 goal intervention scheduled/documen jluis in this visit SN Respiratory Disease Disciplines: SN 05/18/2022 Active 1 goal linked to scheduled/docume nted intervention 1 goal intervention scheduled/documen jluis in this visit SN Integumentary/Wound s Disciplines: SN 05/21/2022 Active 1 goal linked to scheduled/docume nted intervention 1 goal intervention scheduled/documen jluis in this visit Goals Goal Associated Problem Outcome Goal Met? Visit Notes Patient/caregiver will demonstrate ability to obtain, store, identify and administer ordered medications, keep accurate medication list in home, and adhere to medication schedule Description: Patient/caregiver will demonstrate ability to obtain, store, identify and administer ordered medications, keep accurate medication list in home, and adhere to medication schedule by 07/16 . Medication Education No Patient/caregiver will be able to identify and report symptoms of sepsis Description: Patient/caregiver will be able to identify signs/symptoms of sepsis infection and will verbalize actions to take if suspected by 07/16. Sepsis No Patient to maintain parameters within physician-specified ranges throughout certification period Physician Specific Parameters No Manage Risk for falls Description: Patient/caregiver will verbalize knowledge of individualized fall prevention strategies by 07/16. Risk for Falls No Manage Pain Description: Patient/caregiver will verbalize knowledge and understanding of appropriate techniques to control pain, including pain medication and non-pharmacological techniques. Patient will verbalize or demonstrate an acceptable level of pain as evidenced by a pain score of 0/10 and improvement in ability to perform activities of daily living to be achieved by 07/16. Pain No Manage Nutrition/Hydration Description: Patient/caregiver will verbalize/demonstrate knowledge of prescribed diet and/or healthy nutrition to be achieved by 07/16. Nutrition/Hydration No Patient/caregiver will teach back high risk medication side effect and precaution education High Risk Medications Completed Yes Goal Met Manage discharge planning Description: Patient/caregiver will verbalize understanding of ongoing discharge plan provided related to disease management, arrangements for outpatient and/or community services, obtaining medications, supplies, and DME, as needed throughout certification period. Discharge No Patient/Caregiver will remain free of IV therapy complications Description: Patient/caregiver will verbalize understanding of infusion therapy & demonstrate appropriate access device management as evidenced by patient remaining free of IV complications by CoPat end 6 weeks SN IV THERAPY No Patient will have improved edema management Description: Patient/caregiver will demonstrate an understanding of edema management strategies as evidenced by resolution or stabilization of edema by 07/16 . SN Edema No Patient/Caregiver will have improved healing and be free of signs and symptoms of complications Description: Patient/caregiver will verbalize management strategies to promote wound healing & prevent complications as evidenced by improved healing & no complications by 07/16 . SN Integumentary/Wounds Completed Yes Goal Met Improved management of cardiovascular disease Description: Improve patient/caregiver management of cardiac disease as evidenced by patient/caregiver ability to teach back cardiac management strategies by 07/16. SN Cardiovascular Condition No Demonstrate understanding of education Description: Patient and/or caregiver will verbalize understanding of educational instruction provided throughout certification period. SN Learning Assessment No Effective management of ortho post-op condition Description: Increase understanding of management of condition following orthopedic procedure/surgery as evidenced by patient's/caregiver's ability to teachback precautions and s/s of complications by 07/16. SN Ortho Procedure/Surgery No Improved management of respiratory condition Description: Improve respiratory management as evidenced by patient/caregiver's ability to teach back strategies for improving respiratory status by 07/16. SN Respiratory Disease No Patient/Caregiver will have improved healing and be free of signs and symptoms of complications Description: Patient/caregiver will verbalize management strategies to promote wound healing & prevent complications as evidenced by improved healing & no complications by 07/16/2022. SN Integumentary/Wounds No Interventions Intervention Associated Problem/Goal Status Variance Visit Notes Medication Education Description: Evaluate/instruct patient/caregiver on obtaining, storing, identifying and administering ordered medications as well as keeping accurate medication list in the home and adhereing to medication schedule Problem:Medication Education Goal:Patient/caregi dorene will demonstrate ability to obtain, store, identify and administer ordered medications, keep accurate medication list in home, and adhere to medication schedule Completed Patient and Caregiver instructed on importance of keeping accurate medication list in home, adhering to medication schedule and proper storage of medications. Risk of Sepsis Description: Patient is at risk for sepsis. Monitor closely for s/s of sepsis. Problem:Sepsis Goal:Patient/caregi dorene will be able to identify and report symptoms of sepsis Completed SPO2 Description: Notify Dr. Yanira Garcia if pulse ox is <92% at rest. Problem:Physician Specific Parameters Goal:Patient to maintain parameters within physician-specified ranges throughout certification period Completed Instruct on individual fall risk factors and strategies to prevent falls and injuries caused by falls. Problem:Risk for Falls Goal:Manage Risk for falls Completed SN: Patient and Caregiver instructed on Eliminating Environmental Hazards: Keep pathways clear, Move furniture from pathways, Keep rooms and walkways well lit, Wear supportive shoes or non-skid socks and Keep frequently used items within reach Managing Impaired Functional Mobility: Use assistive device(s): front wheeled walker and Caregiver to provide assist with: Ambulation, Steps, Transfers and ADL/IADLs Instruct on pain and instruct on strategies to control pain Problem:Pain Goal:Manage Pain Completed patient and caregiver instructed on techniques to control pain including Pharmacological measures and Non-Pharmacological measures; rest, positioning/elevatio n and mobility/therapeutic exercise. Define patient s appetite/hydration status and implement strategies to improve compliance with prescribed diet and/or healthy nutrition. Problem:Nutrition/H ydration Goal:Manage Nutrition/Hydration Completed reinforced patient and caregiver on implementing strategies to comply with prescribed diet, healthy nutrition and adequate hydration Instruct on ongoing discharge plan Problem:Discharge Goal:Manage discharge planning Completed Ongoing Discharge plan: Discharge plan discussed with patient and caregiver including frequency and duration for home SN and plan for transition to: independent living. Instruct patient/cargiver on management of infusion and access device Problem:SN IV THERAPY Goal:Patient/Caregi dorene will remain free of IV therapy complications Caregiver independent Assess and instruct on measures to reduce edema Problem:SN Edema Goal:Patient will have improved edema management Completed patient and caregiver instructed on elevation, compression, ice, diet, medication compliance and benefits of activity. Instruct on cardiovascular disease process and management of condition Description: Patient has following cardiac diagnosis(es): Hypertension. Problem:SN Cardiovascular Condition Goal:Improved management of cardiovascular disease Completed patient and caregiver instructed on cardiac disease process, self monitoring & symptom reporting, DVT/PE prevention and Cardiac Diet. Instruct and educate on knowledge deficits Problem:SN Learning Assessment Goal:Demonstrate understanding of education Completed patient and caregiver verbalize and/or demonstrate understanding of nursing education completed today. Education methods include: verbal cues. Further education required to improve knowledge and compliance with cardiac disease management, fall prevention/home safety strategies, gastrointestinal care management, hematological care management, incision/wound care management, infusion care management, integumentary care management, medication management, nutrition, pain management and surgical care precautions. 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 Wound Care: Perform wound care (1) Description: Wound Care Order: Incision location: Right Knee Wound type (etiology): Incision Order: Cleanse with soap and water, cover with dry sterile dressing and apply MILTON wrap for compression Frequency: Daily and as needed for saturated dressing. Wound care to be completed by caregiver except for scheduled SN wound care visits. Measure wound/incision at least weekly. Okay to substitute comparable products from home care formulary. Problem:SN Integumentary/Wound s Goal:Patient/Caregi dorene will have improved healing and be free of signs and symptoms of complications Completed Completed by SN. Patient did tolerate well. [facility] Visit Details Visit Type -PT EVAL Discipline -Physical Therapy Problems Problem Description Start Date Status Goals Interve ntions Sepsis Disciplines: Skilled Services 05/18/2022 Active 1 goal linked to scheduled/document ed intervention 1 goal intervention scheduled/document ed in this visit PT Referral Disciplines: Skilled Services met 05/18/2022 Active 1 goal linked to scheduled/document ed intervention 1 goal intervention scheduled/document ed in this visit Physician Specific Parameters Disciplines: Skilled Services 05/18/2022 Active 1 goal linked to scheduled/document ed intervention 1 goal intervention scheduled/document ed in this visit Risk for Falls Disciplines: Skilled Services 05/18/2022 Active 1 goal linked to scheduled/document ed intervention 1 goal intervention scheduled/document ed in this visit Pain Disciplines: Skilled Services 05/18/2022 Active 1 goal linked to scheduled/document ed intervention 1 goal intervention scheduled/document ed in this visit Nutrition/Hydrati on Disciplines: Skilled Services 05/18/2022 Active 1 goal linked to scheduled/document ed intervention 1 goal intervention scheduled/document ed in this visit Discharge Disciplines: Skilled Services 05/18/2022 Active 1 goal linked to scheduled/document ed intervention 1 goal intervention scheduled/document ed in this visit PT Impaired muscle performance and/or ROM Disciplines: PT met 05/20/2022 Active 1 goal linked to scheduled/document ed intervention 1 goal intervention scheduled/document ed in this visit PT Orthopedic Condition Disciplines: PT met 05/20/2022 Active 1 goal linked to scheduled/document ed intervention 3 goal interventions scheduled/document ed in this visit PT Learning Assessment Disciplines: PT met 05/20/2022 Active 1 goal linked to scheduled/document ed intervention 1 goal intervention scheduled/document ed in this visit Goals Goal Associated Problem Outcome Goal Met? Visit Notes Patient/caregiver will be able to identify and report symptoms of sepsis Description: Patient/caregiver will be able to identify signs/symptoms of sepsis infection and will verbalize actions to take if suspected by 07/16. Sepsis No Patient will be referred to additional discipline as needed PT Referral No Patient to maintain parameters within physician-specified ranges throughout certification period Physician Specific Parameters No Manage Risk for falls Description: Patient/caregiver will verbalize knowledge of individualized fall prevention strategies by 07/16. Risk for Falls No Manage Pain Description: Patient/caregiver will verbalize knowledge and understanding of appropriate techniques to control pain, including pain medication and non-pharmacological techniques. Patient will verbalize or demonstrate an acceptable level of pain as evidenced by a pain score of 0/10 and improvement in ability to perform activities of daily living to be achieved by 07/16. Pain No Manage Nutrition/Hydration Description: Patient/caregiver will verbalize/demonstrate knowledge of prescribed diet and/or healthy nutrition to be achieved by 07/16. Nutrition/Hydration No Manage discharge planning Description: Patient/caregiver will verbalize understanding of ongoing discharge plan provided related to disease management, arrangements for outpatient and/or community services, obtaining medications, supplies, and DME, as needed throughout certification period. Discharge No Improved Muscle Performance and/or ROM Description: STG: Patient and/or caregiver will verbalize/demonstrate independence with home exercise program, to improve functional mobility, to be achieved by 05/20/22. PT Impaired muscle performance and/or ROM No Manage Orthopedic Condition Description: Improve patient and/or caregiver understanding of post surgical and/or non-surgical orthopedic intervention management as evidenced by patient and/or caregiver able to verbalize, demonstrate, and teach back instruction, to be achieved by 05/20/22. PT Orthopedic Condition No Demonstrate understanding of education Description: Patient and/or caregiver will understand educational instruction to be achieved by 05/20/22. PT Learning Assessment No Interventions Intervention Associated Problem/Goal Status Variance Visit Notes Risk of Sepsis Description: Patient is at risk for sepsis. Monitor closely for s/s of sepsis. Problem:Sepsis Goal:Patient/caregiv er will be able to identify and report symptoms of sepsis Completed PT evaluation and treatment Description: Evaluate and treat for the assessment of functional deficits and establishment of appropriate interventions and education, including recommendations for functional mobility training, balance training for fall reduction, and strengthening. Problem:PT Referral Goal:Patient will be referred to additional discipline as needed Completed SPO2 Description: Notify Dr. Yanira Garcia if pulse ox is <92% at rest. Problem:Physician Specific Parameters Goal:Patient to maintain parameters within physician-specified ranges throughout certification period Completed Instruct on individual fall risk factors and strategies to prevent falls and injuries caused by falls. Problem:Risk for Falls Goal:Manage Risk for falls Completed PT: Patient instructed on Eliminating Environmental Hazards: Keep pathways clear, Keep rooms and walkways well lit, Wear supportive shoes or non-skid socks and Keep frequently used items within reach Managing Impaired Functional Mobility: Use assistive device(s): front wheeled walker Managing Pain Instruct on pain and instruct on strategies to control pain Problem:Pain Goal:Manage Pain Completed patient instructed on techniques to control pain including Pharmacological measures and Non-Pharmacological measures; positioning/elevation, mobility/therapeutic exercise and use of thermal modalities, apply ice to affected area for the following prescribed frequency: as needed . Define patient s appetite/hydration status and implement strategies to improve compliance with prescribed diet and/or healthy nutrition. Problem:Nutrition/Hy dration Goal:Manage Nutrition/Hydration Completed reinforced patient on implementing strategies to comply with healthy nutrition and adequate hydration Instruct on ongoing discharge plan Problem:Discharge Goal:Manage discharge planning Completed Ongoing Discharge plan: Discharge plan discussed with patient including frequency and duration for home PT and plan for transition to: caregiver assistance. Physical Therapy Therapeutic Exercises Problem:PT Impaired muscle performance and/or ROM Goal:Improved Muscle Performance and/or ROM Completed patient instructed on strengthening exercises including ankle pumps, SLR, hip abduction x 10 reps with verbal and visual cues for technique. patient and caregiver instructed to perform home exercise program twice a day which included above exercises . Instruct on orthopedic precautions and weight bearing restrictions Description: Weight bearing restrictions include: WBAT of involved extremity. Problem:PT Orthopedic Condition Goal:Manage Orthopedic Condition Completed patient and caregiver instructed on orthopedic precautions. Instruct on management of edema Problem:PT Orthopedic Condition Goal:Manage Orthopedic Condition Completed Instruct patient and caregiver on management of edema including elevation of right ankle above the level of the heart. Instruct on self-management of post surgical and/or non-surgical orthopedic intervention Problem:PT Orthopedic Condition Goal:Manage Orthopedic Condition Completed patient instructed on managagement of orthopedic condition, staying well hydrated, eating foods with high protein, follow provider guidance for showering , instructed on when to call provider and instructed on when to call 911. Instruct and educate on knowledge deficits Problem:PT Learning Assessment Goal:Demonstrate understanding of education Completed patient and caregiver verbalize and/or demonstrate understanding of physical therapy education including orthopedic condition management, surgical precautions, pain management, fall prevention strategies, home safety, integumentary and incision/wound care management, infection control precautions, functional activity and home exercise program. Education methods include: verbal cues, written instructions and teach back. Further education required to improve knowledge and compliance with orthopedic condition management, surgical precautions, pain management and integumentary and incision/wound care management. [facility] Visit Details Visit Type -SN ROUTINE IV Discipline -Long-Term Problems Problem Description Start Date Status Goals Interve ntions Medication Education Disciplines: Skilled Services 05/18/2022 Active 1 goal linked to scheduled/documen jluis intervention 1 goal intervention scheduled/document ed in this visit Sepsis Disciplines: Skilled Services 05/18/2022 Active 1 goal linked to scheduled/documen jluis intervention 1 goal intervention scheduled/document ed in this visit Physician Specific Parameters Disciplines: Skilled Services 05/18/2022 Active 1 goal linked to scheduled/documen jluis intervention 1 goal intervention scheduled/document ed in this visit Risk for Falls Disciplines: Skilled Services 05/18/2022 Active 1 goal linked to scheduled/documen jluis intervention 1 goal intervention scheduled/document ed in this visit Pain Disciplines: Skilled Services 05/18/2022 Active 1 goal linked to scheduled/documen jluis intervention 1 goal intervention scheduled/document ed in this visit Nutrition/Hydration Disciplines: Skilled Services 05/18/2022 Active 1 goal linked to scheduled/documen jluis intervention 1 goal intervention scheduled/document ed in this visit Discharge Disciplines: Skilled Services 05/18/2022 Active 1 goal linked to scheduled/documen jluis intervention 1 goal intervention scheduled/document ed in this visit SN IV THERAPY Disciplines: SN 05/18/2022 Active 1 goal linked to scheduled/documen jluis intervention 2 goal interventions scheduled/document ed in this visit SN Edema Disciplines: SN 05/18/2022 Active 1 goal linked to scheduled/documen jluis intervention 1 goal intervention scheduled/document ed in this visit SN Cardiovascular Condition Disciplines: 05/18/2022 Active 1 goal linked to scheduled/documen jluis intervention 1 goal intervention scheduled/document ed in this visit SN Learning Assessment Disciplines: 05/18/2022 Active 1 goal linked to scheduled/documen jluis intervention 1 goal intervention scheduled/document ed in this visit SN Ortho Procedure/Surgery Disciplines: 05/18/2022 Active 1 goal linked to scheduled/documen jluis intervention 1 goal intervention scheduled/document ed in this visit SN Labwork Disciplines: 05/18/2022 Active 1 goal linked to scheduled/documen jluis intervention 1 goal intervention scheduled/document ed in this visit SN Respiratory Disease Disciplines: 05/18/2022 Active 1 goal linked to scheduled/documen jluis intervention 1 goal intervention scheduled/document ed in this visit SN Integumentary/Wound s Disciplines: 05/21/2022 Active 1 goal linked to scheduled/documen jluis intervention 1 goal intervention scheduled/document ed in this visit Goals Goal Associated Problem Outcome Goal Met? Visit Notes Patient/caregiver will demonstrate ability to obtain, store, identify and administer ordered medications, keep accurate medication list in home, and adhere to medication schedule Description: Patient/caregiver will demonstrate ability to obtain, store, identify and administer ordered medications, keep accurate medication list in home, and adhere to medication schedule by 07/16 . Medication Education No Patient/caregiver will be able to identify and report symptoms of sepsis Description: Patient/caregiver will be able to identify signs/symptoms of sepsis infection and will verbalize actions to take if suspected by 07/16. Sepsis No Patient to maintain parameters within physician-specified ranges throughout certification period Physician Specific Parameters No Manage Risk for falls Description: Patient/caregiver will verbalize knowledge of individualized fall prevention strategies by 07/16. Risk for Falls No Manage Pain Description: Patient/caregiver will verbalize knowledge and understanding of appropriate techniques to control pain, including pain medication and non-pharmacological techniques. Patient will verbalize or demonstrate an acceptable level of pain as evidenced by a pain score of 0/10 and improvement in ability to perform activities of daily living to be achieved by 07/16. Pain No Manage Nutrition/Hydration Description: Patient/caregiver will verbalize/demonstrate knowledge of prescribed diet and/or healthy nutrition to be achieved by 07/16. Nutrition/Hydration No Manage discharge planning Description: Patient/caregiver will verbalize understanding of ongoing discharge plan provided related to disease management, arrangements for outpatient and/or community services, obtaining medications, supplies, and DME, as needed throughout certification period. Discharge No Patient/Caregiver will remain free of IV therapy complications Description: Patient/caregiver will verbalize understanding of infusion therapy & demonstrate appropriate access device management as evidenced by patient remaining free of IV complications by CoPat end 6 weeks SN IV THERAPY No Patient will have improved edema management Description: Patient/caregiver will demonstrate an understanding of edema management strategies as evidenced by resolution or stabilization of edema by 07/16 . SN Edema No Improved management of cardiovascular disease Description: Improve patient/caregiver management of cardiac disease as evidenced by patient/caregiver ability to teach back cardiac management strategies by 07/16. SN Cardiovascular Condition No Demonstrate understanding of education Description: Patient and/or caregiver will verbalize understanding of educational instruction provided throughout certification period. SN Learning Assessment No Effective management of ortho post-op condition Description: Increase understanding of management of condition following orthopedic procedure/surgery as evidenced by patient's/caregiver's ability to teachback precautions and s/s of complications by 07/16. SN Ortho Procedure/Surgery No SN to obtain lab specimen without difficulty when ordered throughout certification period SN Labwork No Improved management of respiratory condition Description: Improve respiratory management as evidenced by patient/caregiver's ability to teach back strategies for improving respiratory status by 07/16. SN Respiratory Disease No Patient/Caregiver will have improved healing and be free of signs and symptoms of complications Description: Patient/caregiver will verbalize management strategies to promote wound healing & prevent complications as evidenced by improved healing & no complications by 07/16/2022. SN Integumentary/Wounds No Interventions Intervention Associated Problem/Goal Status Variance Visit Notes Medication Education Description: Evaluate/instruct patient/caregiver on obtaining, storing, identifying and administering ordered medications as well as keeping accurate medication list in the home and adhereing to medication schedule Problem:Medication Education Goal:Patient/caregi dorene will demonstrate ability to obtain, store, identify and administer ordered medications, keep accurate medication list in home, and adhere to medication schedule Completed Patient and Caregiver instructed on importance of keeping accurate medication list in home, adhering to medication schedule and proper storage of medications. Risk of Sepsis Description: Patient is at risk for sepsis. Monitor closely for s/s of sepsis. Problem:Sepsis Goal:Patient/caregi dorene will be able to identify and report symptoms of sepsis Completed SPO2 Description: Notify Dr. Yanira Garcia if pulse ox is <92% at rest. Problem:Physician Specific Parameters Goal:Patient to maintain parameters within physician-specified ranges throughout certification period Completed Instruct on individual fall risk factors and strategies to prevent falls and injuries caused by falls. Problem:Risk for Falls Goal:Manage Risk for falls Completed SN: Patient and Caregiver instructed on Eliminating Environmental Hazards: Keep pathways clear, Move furniture from pathways, Keep rooms and walkways well lit, Wear supportive shoes or non-skid socks and Keep frequently used items within reach Managing Impaired Functional Mobility: Use assistive device(s): front wheeled walker and Caregiver to provide assist with: Ambulation, Steps, Transfers and ADL/IADLs Instruct on pain and instruct on strategies to control pain Problem:Pain Goal:Manage Pain Completed patient and caregiver instructed on techniques to control pain including Pharmacological measures and Non-Pharmacological measures; rest, positioning/elevatio n, mobility/therapeutic exercise and distraction. Define patient s appetite/hydration status and implement strategies to improve compliance with prescribed diet and/or healthy nutrition. Problem:Nutrition/H ydration Goal:Manage Nutrition/Hydration Completed reinforced patient and caregiver on implementing strategies to comply with prescribed diet, healthy nutrition and adequate hydration Instruct on ongoing discharge plan Problem:Discharge Goal:Manage discharge planning Completed Ongoing Discharge plan: Discharge plan discussed with patient and caregiver including frequency and duration for home SN and plan for transition to: live independently at home without ongoing services. Complete PICC catheter care per order Description: Measure external catheter length with every dressing change. Measure upper arm circumference 10 cm above the anticubital fossa at initial assessment and when clinically indicated. Change extension tubing weekly and PRN. Change dressing weekly and PRN for lifting edges of dressing, visible soiling, presence of moisture, drainage or blood, compromised skin integrity. Cleanse site with 2% chlorhexidine gluconate for 30 seconds. Allow to air dry completely. Apply skin barrier solution and allow to air dry completely. Cover/secure with StatLock , BIOPATCH and transparent semi-permeable dressing. Problem:SN IV THERAPY Goal:Patient/Caregi dorene will remain free of IV therapy complications Completed Instruct patient/cargiver on management of infusion and access device Problem:SN IV THERAPY Goal:Patient/Caregi dorene will remain free of IV therapy complications Caregiver independent Assess and instruct on measures to reduce edema Problem:SN Edema Goal:Patient will have improved edema management Completed patient and caregiver instructed on elevation, compression, ice, diet, medication compliance and benefits of activity. Instruct on cardiovascular disease process and management of condition Description: Patient has following cardiac diagnosis(es): Hypertension. Problem:SN Cardiovascular Condition Goal:Improved management of cardiovascular disease Completed patient and caregiver instructed on cardiac disease process, self monitoring & symptom reporting and Cardiac Diet. Instruct and educate on knowledge deficits Problem:SN Learning Assessment Goal:Demonstrate understanding of education Completed patient and caregiver verbalize and/or demonstrate understanding of nursing education completed today. Education methods include: verbal cues. Further education required to improve knowledge and compliance with cardiac disease management, fall prevention/home safety strategies, hematological care management, incision/wound care management, integumentary care management, medication management, nutrition, pain management and surgical care precautions. 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 Grimaldo Results to Fax lab results to pharmacy: [phone]). Dx code(s): T84.53XA] . If unable to draw blood through IV access device, may draw blood peripherally. Problem:SN Labwork Goal:SN to obtain lab specimen without difficulty when ordered throughout certification period Completed Instruct on respiratory disease process and management of condition Description: Patient has following respiratory diagnosis(es): asthma Problem:SN Respiratory Disease Goal:Improved management of respiratory condition Completed patient and caregiver assessed and reinforced on respiratory disease process, zone sheet and self monitoring & symptom reporting. Wound Care: Perform wound care (1) Description: Wound Care Order: Incision location: Right Knee Wound type (etiology): Incision Order: Cleanse with soap and water, cover with dry sterile dressing and apply MILTON wrap for compression Frequency: Daily and as needed for saturated dressing. Wound care to be completed by caregiver except for scheduled SN wound care visits. Measure wound/incision at least weekly. Okay to substitute comparable products from home care formulary. Problem:SN Integumentary/Wound s Goal:Patient/Caregi dorene will have improved healing and be free of signs and symptoms of complications Completed Completed by SN. Patient did tolerate well. documented in this encounter [facility] home Plan of care note* Visit Details Visit Type -SN IV PRN Discipline -Long-Term Problems Problem Description Start Date Status Goals Interve ntions Medication Education Disciplines: Skilled Services 05/18/2022 Active 1 goal linked to scheduled/document ed intervention 1 goal intervention scheduled/documente d in this visit Sepsis Disciplines: Skilled Services 05/18/2022 Active 1 goal linked to scheduled/document ed intervention 1 goal intervention scheduled/documente d in this visit Physician Specific Parameters Disciplines: Skilled Services 05/18/2022 Active 1 goal linked to scheduled/document ed intervention 1 goal intervention scheduled/documente d in this visit Risk for Falls Disciplines: Skilled Services 05/18/2022 Active 1 goal linked to scheduled/document ed intervention 1 goal intervention scheduled/documente d in this visit Pain Disciplines: Skilled Services 05/18/2022 Active 1 goal linked to scheduled/document ed intervention 1 goal intervention scheduled/documente d in this visit Nutrition/Hydra tion Disciplines: Skilled Services 05/18/2022 Active 1 goal linked to scheduled/document ed intervention 1 goal intervention scheduled/documente d in this visit SN Learning Assessment Disciplines: SN 05/18/2022 Active 1 goal linked to scheduled/document ed intervention 1 goal intervention scheduled/documente d in this visit SN Labwork Disciplines: SN 05/27/2022 Active 1 goal linked to scheduled/document ed intervention 1 goal intervention scheduled/documente d in this visit Goals Goal Associated Problem Outcome Goal Met? Visit Notes Patient/caregiver will demonstrate ability to obtain, store, identify and administer ordered medications, keep accurate medication list in home, and adhere to medication schedule Description: Patient/caregiver will demonstrate ability to obtain, store, identify and administer ordered medications, keep accurate medication list in home, and adhere to medication schedule by 07/16 . Medication Education No Patient/caregiver will be able to identify and report symptoms of sepsis Description: Patient/caregiver will be able to identify signs/symptoms of sepsis infection and will verbalize actions to take if suspected by 07/16. Sepsis No Patient to maintain parameters within physician-specified ranges throughout certification period Physician Specific Parameters No Manage Risk for falls Description: Patient/caregiver will verbalize knowledge of individualized fall prevention strategies by 07/16. Risk for Falls No Manage Pain Description: Patient/caregiver will verbalize knowledge and understanding of appropriate techniques to control pain, including pain medication and non-pharmacological techniques. Patient will verbalize or demonstrate an acceptable level of pain as evidenced by a pain score of 0/10 and improvement in ability to perform activities of daily living to be achieved by 07/16. Pain No Manage Nutrition/Hydration Description: Patient/caregiver will verbalize/demonstrate knowledge of prescribed diet and/or healthy nutrition to be achieved by 07/16. Nutrition/Hydration No Demonstrate understanding of education Description: Patient and/or caregiver will verbalize understanding of educational instruction provided throughout certification period. SN Learning Assessment No SN to obtain lab specimen without difficulty when ordered throughout certification period SN Labwork No Interventions Intervention Associated Problem/Goal Status Variance Visit Notes Medication Education Description: Evaluate/instruct patient/caregiver on obtaining, storing, identifying and administering ordered medications as well as keeping accurate medication list in the home and adhereing to medication schedule Problem:Medication Education Goal:Patient/caregive r will demonstrate ability to obtain, store, identify and administer ordered medications, keep accurate medication list in home, and adhere to medication schedule Completed Patient instructed on importance of keeping accurate medication list in home and adhering to medication schedule. Risk of Sepsis Description: Patient is at risk for sepsis. Monitor closely for s/s of sepsis. Problem:Sepsis Goal:Patient/caregive r will be able to identify and report symptoms of sepsis Completed SPO2 Description: Notify Dr. Yanira Garcia if pulse ox is <92% at rest. Problem:Physician Specific Parameters Goal:Patient to maintain parameters within physician-specified ranges throughout certification period Completed Instruct on individual fall risk factors and strategies to prevent falls and injuries caused by falls. Problem:Risk for Falls Goal:Manage Risk for falls Completed SN: Patient instructed on Managing Impaired Functional Mobility: Use assistive device(s): standard walker Instruct on pain and instruct on strategies to control pain Problem:Pain Goal:Manage Pain Completed patient instructed on techniques to control pain including Pharmacological measures and Non-Pharmacological measures; rest, positioning/elevation and breathing/relaxation. Define patient s appetite/hydration status and implement strategies to improve compliance with prescribed diet and/or healthy nutrition. Problem:Nutrition/Hyd ration Goal:Manage Nutrition/Hydration Completed reinforced patient on implementing strategies to comply with healthy nutrition Instruct and educate on knowledge deficits Problem:SN Learning Assessment Goal:Demonstrate understanding of education Completed patient verbalize and/or demonstrate understanding of nursing education completed today. Education methods include: verbal cues. Further education required to improve knowledge and compliance with fall prevention/home safety strategies, infusion care management, medication management, nutrition, pain management and surgical care precautions. SN to obtain blood specimen (1) Description: per orders of Dr Chadwick Grimaldo draw vancomycin trough on 05/29/22 Problem:SN Labwork Goal:SN to obtain lab specimen without difficulty when ordered throughout certification period Completed documented in this encounter [facility] home Plan of care note* Visit Details Visit Type -SN ROUTINE IV Discipline -Long-Term Problems Problem Description Start Date Status Goals Interve ntions Medication Education Disciplines: Skilled Services 05/18/2022 Active 1 goal linked to scheduled/docume nted intervention 1 goal intervention scheduled/documen jluis in this visit Sepsis Disciplines: Skilled Services 05/18/2022 Active 1 goal linked to scheduled/docume nted intervention 1 goal intervention scheduled/documen jluis in this visit Physician Specific Parameters Disciplines: Skilled Services 05/18/2022 Active 1 goal linked to scheduled/docume nted intervention 1 goal intervention scheduled/documen jluis in this visit Risk for Falls Disciplines: Skilled Services 05/18/2022 Active 1 goal linked to scheduled/docume nted intervention 1 goal intervention scheduled/documen jluis in this visit Pain Disciplines: Skilled Services 05/18/2022 Active 1 goal linked to scheduled/docume nted intervention 1 goal intervention scheduled/documen jluis in this visit Nutrition/Hydration Disciplines: Skilled Services 05/18/2022 Active 1 goal linked to scheduled/docume nted intervention 1 goal intervention scheduled/documen jluis in this visit Discharge Disciplines: Skilled Services 05/18/2022 Active 1 goal linked to scheduled/docume nted intervention 1 goal intervention scheduled/documen jluis in this visit SN IV THERAPY Disciplines: SN 05/18/2022 Active 1 goal linked to scheduled/docume nted intervention 2 goal interventions scheduled/documen jluis in this visit SN Edema Disciplines: SN 05/18/2022 Active 1 goal linked to scheduled/docume nted intervention 1 goal intervention scheduled/documen jluis in this visit SN Cardiovascular Condition Disciplines: SN 05/18/2022 Active 1 goal linked to scheduled/docume nted intervention 1 goal intervention scheduled/documen jluis in this visit SN Learning Assessment Disciplines: SN 05/18/2022 Active 1 goal linked to scheduled/docume nted intervention 1 goal intervention scheduled/documen jluis in this visit SN Ortho Procedure/Surgery Disciplines: 05/18/2022 Active 1 goal linked to scheduled/docume nted intervention 1 goal intervention scheduled/documen jluis in this visit SN Labwork Disciplines: 05/18/2022 Active 1 goal linked to scheduled/docume nted intervention 1 goal intervention scheduled/documen jluis in this visit SN Respiratory Disease Disciplines: 05/18/2022 Resolved on 06/02/2022 1 goal linked to scheduled/docume nted intervention 1 goal intervention scheduled/documen jluis in this visit SN Labwork Disciplines: 05/27/2022 Resolved on 06/02/2022 1 goal linked to scheduled/docume nted intervention Goals Goal Associated Problem Outcome Goal Met? Visit Notes Patient/caregiver will demonstrate ability to obtain, store, identify and administer ordered medications, keep accurate medication list in home, and adhere to medication schedule Description: Patient/caregiver will demonstrate ability to obtain, store, identify and administer ordered medications, keep accurate medication list in home, and adhere to medication schedule by 07/16 . Medication Education No Patient/caregiver will be able to identify and report symptoms of sepsis Description: Patient/caregiver will be able to identify signs/symptoms of sepsis infection and will verbalize actions to take if suspected by 07/16. Sepsis No Patient to maintain parameters within physician-specified ranges throughout certification period Physician Specific Parameters No Manage Risk for falls Description: Patient/caregiver will verbalize knowledge of individualized fall prevention strategies by 07/16. Risk for Falls No Manage Pain Description: Patient/caregiver will verbalize knowledge and understanding of appropriate techniques to control pain, including pain medication and non-pharmacological techniques. Patient will verbalize or demonstrate an acceptable level of pain as evidenced by a pain score of 0/10 and improvement in ability to perform activities of daily living to be achieved by 07/16. Pain No Manage Nutrition/Hydration Description: Patient/caregiver will verbalize/demonstrate knowledge of prescribed diet and/or healthy nutrition to be achieved by 07/16. Nutrition/Hydration No Manage discharge planning Description: Patient/caregiver will verbalize understanding of ongoing discharge plan provided related to disease management, arrangements for outpatient and/or community services, obtaining medications, supplies, and DME, as needed throughout certification period. Discharge No Patient/Caregiver will remain free of IV therapy complications Description: Patient/caregiver will verbalize understanding of infusion therapy & demonstrate appropriate access device management as evidenced by patient remaining free of IV complications by CoPat end 6 weeks SN IV THERAPY No Patient will have improved edema management Description: Patient/caregiver will demonstrate an understanding of edema management strategies as evidenced by resolution or stabilization of edema by 07/16 . SN Edema No Improved management of cardiovascular disease Description: Improve patient/caregiver management of cardiac disease as evidenced by patient/caregiver ability to teach back cardiac management strategies by 07/16. SN Cardiovascular Condition No Demonstrate understanding of education Description: Patient and/or caregiver will verbalize understanding of educational instruction provided throughout certification period. SN Learning Assessment No Effective management of ortho post-op condition Description: Increase understanding of management of condition following orthopedic procedure/surgery as evidenced by patient's/caregiver's ability to teachback precautions and s/s of complications by 07/16. SN Ortho Procedure/Surgery No SN to obtain lab specimen without difficulty when ordered throughout certification period SN Labwork No Improved management of respiratory condition Description: Improve respiratory management as evidenced by patient/caregiver's ability to teach back strategies for improving respiratory status by 07/16. SN Respiratory Disease Completed Yes Goal Met SN to obtain lab specimen without difficulty when ordered throughout certification period SN Labwork Completed Yes Goal Met Interventions Intervention Associated Problem/Goal Status Variance Visit Notes Medication Education Description: Evaluate/instruct patient/caregiver on obtaining, storing, identifying and administering ordered medications as well as keeping accurate medication list in the home and adhereing to medication schedule Problem:Medication Education Goal:Patient/caregive r will demonstrate ability to obtain, store, identify and administer ordered medications, keep accurate medication list in home, and adhere to medication schedule Completed Patient and Caregiver instructed on importance of keeping accurate medication list in home, adhering to medication schedule and proper storage of medications. Risk of Sepsis Description: Patient is at risk for sepsis. Monitor closely for s/s of sepsis. Problem:Sepsis Goal:Patient/caregive r will be able to identify and report symptoms of sepsis Completed SPO2 Description: Notify Dr. Yanira Gacria if pulse ox is <92% at rest. Problem:Physician Specific Parameters Goal:Patient to maintain parameters within physician-specified ranges throughout certification period Completed Instruct on individual fall risk factors and strategies to prevent falls and injuries caused by falls. Problem:Risk for Falls Goal:Manage Risk for falls Completed SN: Patient and Caregiver instructed on Eliminating Environmental Hazards: Keep pathways clear, Remove unsafe rugs, Move furniture from pathways, Keep rooms and walkways well lit, Wear supportive shoes or non-skid socks and Keep frequently used items within reach Instruct on pain and instruct on strategies to control pain Problem:Pain Goal:Manage Pain Completed patient and caregiver instructed on techniques to control pain including Pharmacological measures and Non-Pharmacological measures; rest, positioning/elevation and mobility/therapeutic exercise. Define patient s appetite/hydration status and implement strategies to improve compliance with prescribed diet and/or healthy nutrition. Problem:Nutrition/Hyd ration Goal:Manage Nutrition/Hydration Completed reinforced patient and caregiver on implementing strategies to comply with prescribed diet, healthy nutrition and adequate hydration Instruct on ongoing discharge plan Problem:Discharge Goal:Manage discharge planning Completed Ongoing Discharge plan: Discharge plan discussed with patient and caregiver including frequency and duration for home SN and plan for transition to: live independently at home without ongoing services. Complete PICC catheter care per order Description: Measure external catheter length with every dressing change. Measure upper arm circumference 10 cm above the anticubital fossa at initial assessment and when clinically indicated. Change extension tubing weekly and PRN. Change dressing weekly and PRN for lifting edges of dressing, visible soiling, presence of moisture, drainage or blood, compromised skin integrity. Cleanse site with 2% chlorhexidine gluconate for 30 seconds. Allow to air dry completely. Apply skin barrier solution and allow to air dry completely. Cover/secure with StatLock , BIOPATCH and transparent semi-permeable dressing. Problem:SN IV THERAPY Goal:Patient/Caregive r will remain free of IV therapy complications Completed Instruct patient/cargiver on management of infusion and access device Problem:SN IV THERAPY Goal:Patient/Caregive r will remain free of IV therapy complications Completed patient and caregiver instructed on the following: name, purpose and goal of infusion therapy, how to contact [facility], how and when to contact the pharmacy, aseptic handling and maintaining a clean area for infusion therapy supplies, preparation and administration of infusion, safe handling, storage and disposal of infusion therapy supplies, medications, flushes and hazardous waste and flushing the venous access device Assess and instruct on measures to reduce edema Problem:SN Edema Goal:Patient will have improved edema management Completed patient and caregiver instructed on elevation, compression, medication compliance and benefits of activity. Instruct on cardiovascular disease process and management of condition Description: Patient has following cardiac diagnosis(es): Hypertension. Problem:SN Cardiovascular Condition Goal:Improved management of cardiovascular disease Completed patient and caregiver instructed on cardiac disease process, self monitoring & symptom reporting and Cardiac Diet. Instruct and educate on knowledge deficits Problem:SN Learning Assessment Goal:Demonstrate understanding of education Completed patient and caregiver verbalize and/or demonstrate understanding of nursing education completed today. Education methods include: verbal cues. Further education required to improve knowledge and compliance with cardiac disease management, fall prevention/home safety strategies, hematological care management, incision/wound care management, integumentary care management, medication management, nutrition and pain management. 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 Grimaldo Results to Fax lab results to pharmacy: [phone]). Dx code(s): T84.53XA] . If unable to draw blood through IV access device, may draw blood peripherally. Problem:SN Labwork Goal:SN to obtain lab specimen without difficulty when ordered throughout certification period Completed Instruct on respiratory disease process and management of condition Description: Patient has following respiratory diagnosis(es): asthma Problem:SN Respiratory Disease Goal:Improved management of respiratory condition Completed patient and caregiver assessed and reinforced on respiratory disease process, zone sheet and self monitoring & symptom reporting. [facility] Visit Details Visit Type -SN ROUTINE IV Discipline -Long-Term Problems Problem Description Start Date Status Goals Interve ntions Medication Education Disciplines: Skilled Services 05/18/2022 Active 1 goal linked to scheduled/documen jluis intervention 1 goal intervention scheduled/document ed in this visit Sepsis Disciplines: Skilled Services 05/18/2022 Active 1 goal linked to scheduled/documen jluis intervention 1 goal intervention scheduled/document ed in this visit Physician Specific Parameters Disciplines: Skilled Services 05/18/2022 Active 1 goal linked to scheduled/documen jluis intervention 1 goal intervention scheduled/document ed in this visit Risk for Falls Disciplines: Skilled Services 05/18/2022 Active 1 goal linked to scheduled/documen jluis intervention 1 goal intervention scheduled/document ed in this visit Pain Disciplines: Skilled Services 05/18/2022 Active 1 goal linked to scheduled/documen jluis intervention 1 goal intervention scheduled/document ed in this visit Nutrition/Hydration Disciplines: Skilled Services 05/18/2022 Active 1 goal linked to scheduled/documen jluis intervention 1 goal intervention scheduled/document ed in this visit SN IV THERAPY Disciplines: SN 05/18/2022 Active 1 goal linked to scheduled/documen jluis intervention 1 goal intervention scheduled/document ed in this visit SN Edema Disciplines: SN 05/18/2022 Active 1 goal linked to scheduled/documen jluis intervention 1 goal intervention scheduled/document ed in this visit SN Cardiovascular Condition Disciplines: 05/18/2022 Active 1 goal linked to scheduled/documen jluis intervention 1 goal intervention scheduled/document ed in this visit SN Learning Assessment Disciplines: 05/18/2022 Active 1 goal linked to scheduled/documen jluis intervention 1 goal intervention scheduled/document ed in this visit SN Ortho Procedure/Surgery Disciplines: 05/18/2022 Active 1 goal linked to scheduled/documen jluis intervention 1 goal intervention scheduled/document ed in this visit SN Labwork Disciplines: 05/18/2022 Active 1 goal linked to scheduled/documen jluis intervention 1 goal intervention scheduled/document ed in this visit Goals Goal Associated Problem Outcome Goal Met? Visit Notes Patient/caregiver will demonstrate ability to obtain, store, identify and administer ordered medications, keep accurate medication list in home, and adhere to medication schedule Description: Patient/caregiver will demonstrate ability to obtain, store, identify and administer ordered medications, keep accurate medication list in home, and adhere to medication schedule by 07/16 . Medication Education No Patient/caregiver will be able to identify and report symptoms of sepsis Description: Patient/caregiver will be able to identify signs/symptoms of sepsis infection and will verbalize actions to take if suspected by 07/16. Sepsis No Patient to maintain parameters within physician-specified ranges throughout certification period Physician Specific Parameters No Manage Risk for falls Description: Patient/caregiver will verbalize knowledge of individualized fall prevention strategies by 07/16. Risk for Falls No Manage Pain Description: Patient/caregiver will verbalize knowledge and understanding of appropriate techniques to control pain, including pain medication and non-pharmacological techniques. Patient will verbalize or demonstrate an acceptable level of pain as evidenced by a pain score of 0/10 and improvement in ability to perform activities of daily living to be achieved by 07/16. Pain No Manage Nutrition/Hydration Description: Patient/caregiver will verbalize/demonstrate knowledge of prescribed diet and/or healthy nutrition to be achieved by 07/16. Nutrition/Hydration No Patient/Caregiver will remain free of IV therapy complications Description: Patient/caregiver will verbalize understanding of infusion therapy & demonstrate appropriate access device management as evidenced by patient remaining free of IV complications by CoPat end 6 weeks SN IV THERAPY No Patient will have improved edema management Description: Patient/caregiver will demonstrate an understanding of edema management strategies as evidenced by resolution or stabilization of edema by 07/16 . SN Edema No Improved management of cardiovascular disease Description: Improve patient/caregiver management of cardiac disease as evidenced by patient/caregiver ability to teach back cardiac management strategies by 07/16. SN Cardiovascular Condition No Demonstrate understanding of education Description: Patient and/or caregiver will verbalize understanding of educational instruction provided throughout certification period. SN Learning Assessment No Effective management of ortho post-op condition Description: Increase understanding of management of condition following orthopedic procedure/surgery as evidenced by patient's/caregiver's ability to teachback precautions and s/s of complications by 07/16. SN Ortho Procedure/Surgery No SN to obtain lab specimen without difficulty when ordered throughout certification period SN Labwork No Interventions Intervention Associated Problem/Goal Status Variance Visit Notes Medication Education Description: Evaluate/instruct patient/caregiver on obtaining, storing, identifying and administering ordered medications as well as keeping accurate medication list in the home and adhereing to medication schedule Problem:Medication Education Goal:Patient/caregiver will demonstrate ability to obtain, store, identify and administer ordered medications, keep accurate medication list in home, and adhere to medication schedule Completed Patient instructed on adhering to medication schedule. Risk of Sepsis Description: Patient is at risk for sepsis. Monitor closely for s/s of sepsis. Problem:Sepsis Goal:Patient/caregiver will be able to identify and report symptoms of sepsis Completed SPO2 Description: Notify Dr. Yanira Garcia if pulse ox is <92% at rest. Problem:Physician Specific Parameters Goal:Patient to maintain parameters within physician-specified ranges throughout certification period Completed Instruct on individual fall risk factors and strategies to prevent falls and injuries caused by falls. Problem:Risk for Falls Goal:Manage Risk for falls Completed SN: Patient instructed on Eliminating Environmental Hazards: Keep pathways clear, Keep rooms and walkways well lit and Wear supportive shoes or non-skid socks Instruct on pain and instruct on strategies to control pain Problem:Pain Goal:Manage Pain Completed patient instructed on techniques to control pain including Non-Pharmacological measures; rest, positioning/elevatio n and mobility/therapeutic exercise. Define patient s appetite/hydration status and implement strategies to improve compliance with prescribed diet and/or healthy nutrition. Problem:Nutrition/Hydr ation Goal:Manage Nutrition/Hydration Completed reinforced patient on implementing strategies to comply with healthy nutrition and adequate hydration Complete PICC catheter care per order Description: Measure external catheter length with every dressing change. Measure upper arm circumference 10 cm above the anticubital fossa at initial assessment and when clinically indicated. Change extension tubing weekly and PRN. Change dressing weekly and PRN for lifting edges of dressing, visible soiling, presence of moisture, drainage or blood, compromised skin integrity. Cleanse site with 2% chlorhexidine gluconate for 30 seconds. Allow to air dry completely. Apply skin barrier solution and allow to air dry completely. Cover/secure with StatLock , BIOPATCH and transparent semi-permeable dressing. Problem:SN IV THERAPY Goal:Patient/Caregiver will remain free of IV therapy complications Completed Assess and instruct on measures to reduce edema Problem:SN Edema Goal:Patient will have improved edema management Completed patient instructed on elevation. Instruct on cardiovascular disease process and management of condition Description: Patient has following cardiac diagnosis(es): Hypertension. Problem:SN Cardiovascular Condition Goal:Improved management of cardiovascular disease Completed patient instructed on self monitoring & symptom reporting. Instruct and educate on knowledge deficits Problem:SN Learning Assessment Goal:Demonstrate understanding of education Completed patient verbalize and/or demonstrate understanding of nursing education completed today. Education methods include: verbal cues. Further education required to improve knowledge and compliance with fall prevention/home safety strategies. 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 Grimaldo Results to Fax lab results to pharmacy: [phone]). Dx code(s): T84.53XA] . If unable to draw blood through IV access device, may draw blood peripherally. Problem:SN Labwork Goal:SN to obtain lab specimen without difficulty when ordered throughout certification period Completed documented in this encounter [facility] home Plan of care note* Visit Details Visit Type -SN IV PRN Discipline -Long-Term Problems Problem Description Start Date Status Goals Interve ntions Medication Education Disciplines: Skilled Services 05/18/2022 Active 1 goal linked to scheduled/documen jluis intervention 1 goal intervention scheduled/document ed in this visit Sepsis Disciplines: Skilled Services 05/18/2022 Active 1 goal linked to scheduled/documen jluis intervention 1 goal intervention scheduled/document ed in this visit Physician Specific Parameters Disciplines: Skilled Services 05/18/2022 Active 1 goal linked to scheduled/documen jluis intervention 1 goal intervention scheduled/document ed in this visit Risk for Falls Disciplines: Skilled Services 05/18/2022 Active 1 goal linked to scheduled/documen jluis intervention 1 goal intervention scheduled/document ed in this visit Pain Disciplines: Skilled Services 05/18/2022 Active 1 goal linked to scheduled/documen jluis intervention 1 goal intervention scheduled/document ed in this visit Nutrition/Hydration Disciplines: Skilled Services 05/18/2022 Active 1 goal linked to scheduled/documen jluis intervention 1 goal intervention scheduled/document ed in this visit Discharge Disciplines: Skilled Services 05/18/2022 Active 1 goal linked to scheduled/documen jluis intervention 1 goal intervention scheduled/document ed in this visit SN Edema Disciplines: SN 05/18/2022 Active 1 goal linked to scheduled/documen jluis intervention 1 goal intervention scheduled/document ed in this visit SN Cardiovascular Condition Disciplines: SN 05/18/2022 Active 1 goal linked to scheduled/documen jluis intervention 1 goal intervention scheduled/document ed in this visit SN Learning Assessment Disciplines: SN 05/18/2022 Active 1 goal linked to scheduled/documen jluis intervention 1 goal intervention scheduled/document ed in this visit SN Ortho Procedure/Surgery Disciplines: SN 05/18/2022 Active 1 goal linked to scheduled/documen jluis intervention 1 goal intervention scheduled/document ed in this visit SN Labwork Disciplines: SN 06/10/2022 Active 1 goal linked to scheduled/documen jluis intervention 1 goal intervention scheduled/document ed in this visit Goals Goal Associated Problem Outcome Goal Met? Visit Notes Patient/caregiver will demonstrate ability to obtain, store, identify and administer ordered medications, keep accurate medication list in home, and adhere to medication schedule Description: Patient/caregiver will demonstrate ability to obtain, store, identify and administer ordered medications, keep accurate medication list in home, and adhere to medication schedule by 07/16 . Medication Education No Patient/caregiver will be able to identify and report symptoms of sepsis Description: Patient/caregiver will be able to identify signs/symptoms of sepsis infection and will verbalize actions to take if suspected by 07/16. Sepsis No Patient to maintain parameters within physician-specified ranges throughout certification period Physician Specific Parameters No Manage Risk for falls Description: Patient/caregiver will verbalize knowledge of individualized fall prevention strategies by 07/16. Risk for Falls No Manage Pain Description: Patient/caregiver will verbalize knowledge and understanding of appropriate techniques to control pain, including pain medication and non-pharmacological techniques. Patient will verbalize or demonstrate an acceptable level of pain as evidenced by a pain score of 0/10 and improvement in ability to perform activities of daily living to be achieved by 07/16. Pain No Manage Nutrition/Hydration Description: Patient/caregiver will verbalize/demonstrate knowledge of prescribed diet and/or healthy nutrition to be achieved by 07/16. Nutrition/Hydration No Manage discharge planning Description: Patient/caregiver will verbalize understanding of ongoing discharge plan provided related to disease management, arrangements for outpatient and/or community services, obtaining medications, supplies, and DME, as needed throughout certification period. Discharge No Patient will have improved edema management Description: Patient/caregiver will demonstrate an understanding of edema management strategies as evidenced by resolution or stabilization of edema by 07/16 . SN Edema No Improved management of cardiovascular disease Description: Improve patient/caregiver management of cardiac disease as evidenced by patient/caregiver ability to teach back cardiac management strategies by 07/16. SN Cardiovascular Condition No Demonstrate understanding of education Description: Patient and/or caregiver will verbalize understanding of educational instruction provided throughout certification period. SN Learning Assessment No Effective management of ortho post-op condition Description: Increase understanding of management of condition following orthopedic procedure/surgery as evidenced by patient's/caregiver's ability to teachback precautions and s/s of complications by 07/16. SN Ortho Procedure/Surgery No SN to obtain lab specimen without difficulty when ordered throughout certification period SN Labwork No Interventions Intervention Associated Problem/Goal Status Variance Visit Notes Medication Education Description: Evaluate/instruct patient/caregiver on obtaining, storing, identifying and administering ordered medications as well as keeping accurate medication list in the home and adhereing to medication schedule Problem:Medication Education Goal:Patient/caregive r will demonstrate ability to obtain, store, identify and administer ordered medications, keep accurate medication list in home, and adhere to medication schedule Completed Patient instructed on importance of keeping accurate medication list in home, adhering to medication schedule and proper storage of medications. Risk of Sepsis Description: Patient is at risk for sepsis. Monitor closely for s/s of sepsis. Problem:Sepsis Goal:Patient/caregive r will be able to identify and report symptoms of sepsis Completed SPO2 Description: Notify Dr. Yanira Garcia if pulse ox is <92% at rest. Problem:Physician Specific Parameters Goal:Patient to maintain parameters within physician-specified ranges throughout certification period Completed Instruct on individual fall risk factors and strategies to prevent falls and injuries caused by falls. Problem:Risk for Falls Goal:Manage Risk for falls Completed SN: Patient instructed on Eliminating Environmental Hazards: Keep pathways clear, Move furniture from pathways, Keep rooms and walkways well lit, Wear supportive shoes or non-skid socks and Keep frequently used items within reach Instruct on pain and instruct on strategies to control pain Problem:Pain Goal:Manage Pain Completed patient instructed on techniques to control pain including Pharmacological measures and Non-Pharmacological measures; rest, positioning/elevation and mobility/therapeutic exercise. Define patient s appetite/hydration status and implement strategies to improve compliance with prescribed diet and/or healthy nutrition. Problem:Nutrition/Hyd ration Goal:Manage Nutrition/Hydration Completed reinforced patient on implementing strategies to comply with prescribed diet, healthy nutrition and adequate hydration Instruct on ongoing discharge plan Problem:Discharge Goal:Manage discharge planning Completed Ongoing Discharge plan: Discharge plan discussed with patient including frequency and duration for home SN and plan for transition to: live independently at home without ongoing services. Assess and instruct on measures to reduce edema Problem:SN Edema Goal:Patient will have improved edema management Completed patient instructed on elevation, compression, ice, diet, medication compliance and benefits of activity. Instruct on cardiovascular disease process and management of condition Description: Patient has following cardiac diagnosis(es): Hypertension. Problem:SN Cardiovascular Condition Goal:Improved management of cardiovascular disease Completed patient instructed on cardiac disease process and self monitoring & symptom reporting. Instruct and educate on knowledge deficits Problem:SN Learning Assessment Goal:Demonstrate understanding of education Completed patient verbalize and/or demonstrate understanding of nursing education completed today. Education methods include: verbal cues. Further education required to improve knowledge and compliance with cardiac disease management, fall prevention/home safety strategies, hematological care management, incision/wound care management, infusion care management, integumentary care management, medication management, nutrition and pain management. 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 Grimaldo nurse to draw CBC/diff on 06/12/22 If unable to draw blood through IV access device, may draw blood peripherally. Problem:SN Labwork Goal:SN to obtain lab specimen without difficulty when ordered throughout certification period Completed documented in this encounter [facility]'s home Plan of care note* Visit Details Visit Type -SN ROUTINE IV Discipline -Long-Term Problems Problem Description Start Date Status Goals Interve ntions Medication Education Disciplines: Skilled Services 05/18/2022 Active 1 goal linked to scheduled/documen jluis intervention 1 goal intervention scheduled/document ed in this visit Sepsis Disciplines: Skilled Services 05/18/2022 Active 1 goal linked to scheduled/documen jluis intervention 1 goal intervention scheduled/document ed in this visit Physician Specific Parameters Disciplines: Skilled Services 05/18/2022 Active 1 goal linked to scheduled/documen jluis intervention 1 goal intervention scheduled/document ed in this visit Risk for Falls Disciplines: Skilled Services 05/18/2022 Active 1 goal linked to scheduled/documen jluis intervention 1 goal intervention scheduled/document ed in this visit Pain Disciplines: Skilled Services 05/18/2022 Active 1 goal linked to scheduled/documen jluis intervention 1 goal intervention scheduled/document ed in this visit Nutrition/Hydration Disciplines: Skilled Services 05/18/2022 Active 1 goal linked to scheduled/documen jluis intervention 1 goal intervention scheduled/document ed in this visit Discharge Disciplines: Skilled Services 05/18/2022 Active 1 goal linked to scheduled/documen jluis intervention 1 goal intervention scheduled/document ed in this visit SN IV THERAPY Disciplines: SN 05/18/2022 Active 1 goal linked to scheduled/documen jluis intervention 1 goal intervention scheduled/document ed in this visit SN Edema Disciplines: 05/18/2022 Active 1 goal linked to scheduled/documen jluis intervention 1 goal intervention scheduled/document ed in this visit SN Cardiovascular Condition Disciplines: 05/18/2022 Active 1 goal linked to scheduled/documen jluis intervention 1 goal intervention scheduled/document ed in this visit SN Learning Assessment Disciplines: 05/18/2022 Active 1 goal linked to scheduled/documen jluis intervention 1 goal intervention scheduled/document ed in this visit SN Ortho Procedure/Surgery Disciplines: 05/18/2022 Active 1 goal linked to scheduled/documen jluis intervention 1 goal intervention scheduled/document ed in this visit SN Labwork Disciplines: 05/18/2022 Active 1 goal linked to scheduled/documen jluis intervention 1 goal intervention scheduled/document ed in this visit Goals Goal Associated Problem Outcome Goal Met? Visit Notes Patient/caregiver will demonstrate ability to obtain, store, identify and administer ordered medications, keep accurate medication list in home, and adhere to medication schedule Description: Patient/caregiver will demonstrate ability to obtain, store, identify and administer ordered medications, keep accurate medication list in home, and adhere to medication schedule by 07/16 . Medication Education No Patient/caregiver will be able to identify and report symptoms of sepsis Description: Patient/caregiver will be able to identify signs/symptoms of sepsis infection and will verbalize actions to take if suspected by 07/16. Sepsis No Patient to maintain parameters within physician-specified ranges throughout certification period Physician Specific Parameters No Manage Risk for falls Description: Patient/caregiver will verbalize knowledge of individualized fall prevention strategies by 07/16. Risk for Falls No Manage Pain Description: Patient/caregiver will verbalize knowledge and understanding of appropriate techniques to control pain, including pain medication and non-pharmacological techniques. Patient will verbalize or demonstrate an acceptable level of pain as evidenced by a pain score of 0/10 and improvement in ability to perform activities of daily living to be achieved by 07/16. Pain No Manage Nutrition/Hydration Description: Patient/caregiver will verbalize/demonstrate knowledge of prescribed diet and/or healthy nutrition to be achieved by 07/16. Nutrition/Hydration No Manage discharge planning Description: Patient/caregiver will verbalize understanding of ongoing discharge plan provided related to disease management, arrangements for outpatient and/or community services, obtaining medications, supplies, and DME, as needed throughout certification period. Discharge No Patient/Caregiver will remain free of IV therapy complications Description: Patient/caregiver will verbalize understanding of infusion therapy & demonstrate appropriate access device management as evidenced by patient remaining free of IV complications by CoPat end 6 weeks SN IV THERAPY No Patient will have improved edema management Description: Patient/caregiver will demonstrate an understanding of edema management strategies as evidenced by resolution or stabilization of edema by 07/16 . SN Edema No Improved management of cardiovascular disease Description: Improve patient/caregiver management of cardiac disease as evidenced by patient/caregiver ability to teach back cardiac management strategies by 07/16. SN Cardiovascular Condition No Demonstrate understanding of education Description: Patient and/or caregiver will verbalize understanding of educational instruction provided throughout certification period. SN Learning Assessment No Effective management of ortho post-op condition Description: Increase understanding of management of condition following orthopedic procedure/surgery as evidenced by patient's/caregiver's ability to teachback precautions and s/s of complications by 07/16. SN Ortho Procedure/Surgery No SN to obtain lab specimen without difficulty when ordered throughout certification period SN Labwork No Interventions Intervention Associated Problem/Goal Status Variance Visit Notes Medication Education Description: Evaluate/instruct patient/caregiver on obtaining, storing, identifying and administering ordered medications as well as keeping accurate medication list in the home and adhereing to medication schedule Problem:Medication Education Goal:Patient/caregive r will demonstrate ability to obtain, store, identify and administer ordered medications, keep accurate medication list in home, and adhere to medication schedule Completed Patient instructed on importance of keeping accurate medication list in home, adhering to medication schedule and proper storage of medications. Risk of Sepsis Description: Patient is at risk for sepsis. Monitor closely for s/s of sepsis. Problem:Sepsis Goal:Patient/caregive r will be able to identify and report symptoms of sepsis Completed SPO2 Description: Notify Dr. Yanira Garcia if pulse ox is <92% at rest. Problem:Physician Specific Parameters Goal:Patient to maintain parameters within physician-specified ranges throughout certification period Completed Instruct on individual fall risk factors and strategies to prevent falls and injuries caused by falls. Problem:Risk for Falls Goal:Manage Risk for falls Completed SN: Patient instructed on Eliminating Environmental Hazards: Keep pathways clear, Move furniture from pathways, Keep rooms and walkways well lit, Wear supportive shoes or non-skid socks and Keep frequently used items within reach Instruct on pain and instruct on strategies to control pain Problem:Pain Goal:Manage Pain Completed patient instructed on techniques to control pain including Pharmacological measures and Non-Pharmacological measures; rest, positioning/elevation and mobility/therapeutic exercise. Define patient s appetite/hydration status and implement strategies to improve compliance with prescribed diet and/or healthy nutrition. Problem:Nutrition/Hyd ration Goal:Manage Nutrition/Hydration Completed reinforced patient on implementing strategies to comply with prescribed diet, healthy nutrition and adequate hydration Instruct on ongoing discharge plan Problem:Discharge Goal:Manage discharge planning Completed Ongoing Discharge plan: Discharge plan discussed with patient including frequency and duration for home SN and plan for transition to: live independently at home without ongoing services. Complete PICC catheter care per order Description: Measure external catheter length with every dressing change. Measure upper arm circumference 10 cm above the anticubital fossa at initial assessment and when clinically indicated. Change extension tubing weekly and PRN. Change dressing weekly and PRN for lifting edges of dressing, visible soiling, presence of moisture, drainage or blood, compromised skin integrity. Cleanse site with 2% chlorhexidine gluconate for 30 seconds. Allow to air dry completely. Apply skin barrier solution and allow to air dry completely. Cover/secure with StatLock , BIOPATCH and transparent semi-permeable dressing. Problem:SN IV THERAPY Goal:Patient/Caregive r will remain free of IV therapy complications Completed Assess and instruct on measures to reduce edema Problem:SN Edema Goal:Patient will have improved edema management Completed patient instructed on elevation, compression, ice, diet, medication compliance and benefits of activity. Instruct on cardiovascular disease process and management of condition Description: Patient has following cardiac diagnosis(es): Hypertension. Problem:SN Cardiovascular Condition Goal:Improved management of cardiovascular disease Completed patient instructed on cardiac disease process and self monitoring & symptom reporting. Instruct and educate on knowledge deficits Problem:SN Learning Assessment Goal:Demonstrate understanding of education Completed patient verbalize and/or demonstrate understanding of nursing education completed today. Education methods include: verbal cues. Further education required to improve knowledge and compliance with cardiac disease management, fall prevention/home safety strategies, gastrointestinal care management, hematological care management, incision/wound care management, infusion care management, integumentary care management, medication management, nutrition and pain management. 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 Grimaldo Results to Fax lab results to pharmacy: [phone]). Dx code(s): T84.53XA] . If unable to draw blood through IV access device, may draw blood peripherally. Problem:SN Labwork Goal:SN to obtain lab specimen without difficulty when ordered throughout certification period Completed documented in this encounter [facility] home Plan of care note* Visit Details Visit Type -SN IV PRN Discipline -Long-Term Problems Problem Description Start Date Status Goals Interve ntions Medication Education Disciplines: Skilled Services 05/18/2022 Active 1 goal linked to scheduled/document ed intervention 1 goal intervention scheduled/documente d in this visit Sepsis Disciplines: Skilled Services 05/18/2022 Active 1 goal linked to scheduled/document ed intervention 1 goal intervention scheduled/documente d in this visit Risk for Falls Disciplines: Skilled Services 05/18/2022 Active 1 goal linked to scheduled/document ed intervention 1 goal intervention scheduled/documente d in this visit SN Edema Disciplines: SN 05/18/2022 Active 1 goal linked to scheduled/document ed intervention 1 goal intervention scheduled/documente d in this visit SN Learning Assessment Disciplines: SN 05/18/2022 Active 1 goal linked to scheduled/document ed intervention 1 goal intervention scheduled/documente d in this visit SN Ortho Procedure/Surge ry Disciplines: SN 05/18/2022 Active 1 goal linked to scheduled/document ed intervention 1 goal intervention scheduled/documente d in this visit Goals Goal Associated Problem Outcome Goal Met? Visit Notes Patient/caregiver will demonstrate ability to obtain, store, identify and administer ordered medications, keep accurate medication list in home, and adhere to medication schedule Description: Patient/caregiver will demonstrate ability to obtain, store, identify and administer ordered medications, keep accurate medication list in home, and adhere to medication schedule by 07/16 . Medication Education No Patient/caregiver will be able to identify and report symptoms of sepsis Description: Patient/caregiver will be able to identify signs/symptoms of sepsis infection and will verbalize actions to take if suspected by 07/16. Sepsis No Manage Risk for falls Description: Patient/caregiver will verbalize knowledge of individualized fall prevention strategies by 07/16. Risk for Falls No Patient will have improved edema management Description: Patient/caregiver will demonstrate an understanding of edema management strategies as evidenced by resolution or stabilization of edema by 07/16 . SN Edema No Demonstrate understanding of education Description: Patient and/or caregiver will verbalize understanding of educational instruction provided throughout certification period. SN Learning Assessment No Effective management of ortho post-op condition Description: Increase understanding of management of condition following orthopedic procedure/surgery as evidenced by patient's/caregiver's ability to teachback precautions and s/s of complications by 07/16. SN Ortho Procedure/Surgery No Interventions Intervention Associated Problem/Goal Status Variance Visit Notes Medication Education Description: Evaluate/instruct patient/caregiver on obtaining, storing, identifying and administering ordered medications as well as keeping accurate medication list in the home and adhereing to medication schedule Problem:Medication Education Goal:Patient/caregive r will demonstrate ability to obtain, store, identify and administer ordered medications, keep accurate medication list in home, and adhere to medication schedule Completed Patient instructed on adhering to medication schedule. Risk of Sepsis Description: Patient is at risk for sepsis. Monitor closely for s/s of sepsis. Problem:Sepsis Goal:Patient/caregive r will be able to identify and report symptoms of sepsis Completed Instruct on individual fall risk factors and strategies to prevent falls and injuries caused by falls. Problem:Risk for Falls Goal:Manage Risk for falls Completed SN: Patient instructed on Managing Impaired Functional Mobility: Caregiver to provide assist with: Steps Assess and instruct on measures to reduce edema Problem:SN Edema Goal:Patient will have improved edema management Completed patient instructed on elevation. Instruct and educate on knowledge deficits Problem:SN Learning Assessment Goal:Demonstrate understanding of education Completed patient verbalize and/or demonstrate understanding of nursing education completed today. Education methods include: verbal cues, tactile cues, visual cues and teach back. Further education required to improve knowledge and compliance with fall prevention/home safety strategies, infusion care management and pain management. 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 Problem:SN Ortho Procedure/Surgery Goal:Effective management of ortho post-op condition Completed patient instructed on the following precautions/restricti ons:s/s of DVT and weight-bearing status as tolerated [facility] Visit Details Visit Type -SN ROUTINE IV Discipline -Long-Term Problems Problem Description Start Date Status Goals Interve ntions Medication Education Disciplines: Skilled Services 05/18/2022 Active 1 goal linked to scheduled/docume nted intervention 1 goal intervention scheduled/documen jluis in this visit Sepsis Disciplines: Skilled Services 05/18/2022 Active 1 goal linked to scheduled/docume nted intervention 1 goal intervention scheduled/documen jluis in this visit Physician Specific Parameters Disciplines: Skilled Services 05/18/2022 Active 1 goal linked to scheduled/docume nted intervention 1 goal intervention scheduled/documen jluis in this visit Risk for Falls Disciplines: Skilled Services 05/18/2022 Active 1 goal linked to scheduled/docume nted intervention 1 goal intervention scheduled/documen jluis in this visit Pain Disciplines: Skilled Services 05/18/2022 Active 1 goal linked to scheduled/docume nted intervention 1 goal intervention scheduled/documen jluis in this visit Nutrition/Hydration Disciplines: Skilled Services 05/18/2022 Active 1 goal linked to scheduled/docume nted intervention 1 goal intervention scheduled/documen jluis in this visit Discharge Disciplines: Skilled Services 05/18/2022 Active 1 goal linked to scheduled/docume nted intervention 1 goal intervention scheduled/documen jluis in this visit SN IV THERAPY Disciplines: SN 05/18/2022 Active 1 goal linked to scheduled/docume nted intervention 1 goal intervention scheduled/documen jluis in this visit SN Edema Disciplines: SN 05/18/2022 Resolved on 06/23/2022 1 goal linked to scheduled/docume nted intervention SN Cardiovascular Condition Disciplines: SN 05/18/2022 Resolved on 06/23/2022 1 goal linked to scheduled/docume nted intervention 1 goal intervention scheduled/documen jluis in this visit SN Learning Assessment Disciplines: SN 05/18/2022 Active 1 goal linked to scheduled/docume nted intervention 1 goal intervention scheduled/documen jluis in this visit SN Ortho Procedure/Surgery Disciplines: SN 05/18/2022 Resolved on 06/23/2022 1 goal linked to scheduled/docume nted intervention 1 goal intervention scheduled/documen jluis in this visit SN Labwork Disciplines: SN 05/18/2022 Active 1 goal linked to scheduled/docume nted intervention 1 goal intervention scheduled/documen jluis in this visit SN Labwork Disciplines: SN 06/10/2022 Resolved on 06/23/2022 1 goal linked to scheduled/docume nted intervention Goals Goal Associated Problem Outcome Goal Met? Visit Notes Patient/caregiver will demonstrate ability to obtain, store, identify and administer ordered medications, keep accurate medication list in home, and adhere to medication schedule Description: Patient/caregiver will demonstrate ability to obtain, store, identify and administer ordered medications, keep accurate medication list in home, and adhere to medication schedule by 07/16 . Medication Education No Patient/caregiver will be able to identify and report symptoms of sepsis Description: Patient/caregiver will be able to identify signs/symptoms of sepsis infection and will verbalize actions to take if suspected by 07/16. Sepsis No Patient to maintain parameters within physician-specified ranges throughout certification period Physician Specific Parameters No Manage Risk for falls Description: Patient/caregiver will verbalize knowledge of individualized fall prevention strategies by 07/16. Risk for Falls No Manage Pain Description: Patient/caregiver will verbalize knowledge and understanding of appropriate techniques to control pain, including pain medication and non-pharmacological techniques. Patient will verbalize or demonstrate an acceptable level of pain as evidenced by a pain score of 0/10 and improvement in ability to perform activities of daily living to be achieved by 07/16. Pain No Manage Nutrition/Hydration Description: Patient/caregiver will verbalize/demonstrate knowledge of prescribed diet and/or healthy nutrition to be achieved by 07/16. Nutrition/Hydration No Manage discharge planning Description: Patient/caregiver will verbalize understanding of ongoing discharge plan provided related to disease management, arrangements for outpatient and/or community services, obtaining medications, supplies, and DME, as needed throughout certification period. Discharge No Patient/Caregiver will remain free of IV therapy complications Description: Patient/caregiver will verbalize understanding of infusion therapy & demonstrate appropriate access device management as evidenced by patient remaining free of IV complications by CoPat end 6 weeks SN IV THERAPY No Patient will have improved edema management Description: Patient/caregiver will demonstrate an understanding of edema management strategies as evidenced by resolution or stabilization of edema by 07/16 . SN Edema Completed Yes Goal Met Improved management of cardiovascular disease Description: Improve patient/caregiver management of cardiac disease as evidenced by patient/caregiver ability to teach back cardiac management strategies by 07/16. SN Cardiovascular Condition Completed Yes Goal Met Demonstrate understanding of education Description: Patient and/or caregiver will verbalize understanding of educational instruction provided throughout certification period. SN Learning Assessment No Effective management of ortho post-op condition Description: Increase understanding of management of condition following orthopedic procedure/surgery as evidenced by patient's/caregiver's ability to teachback precautions and s/s of complications by 07/16. SN Ortho Procedure/Surgery Completed Yes Goal Met SN to obtain lab specimen without difficulty when ordered throughout certification period SN Labwork No SN to obtain lab specimen without difficulty when ordered throughout certification period SN Labwork Completed Yes goal Met Interventions Intervention Associated Problem/Goal Status Variance Visit Notes Medication Education Description: Evaluate/instruct patient/caregiver on obtaining, storing, identifying and administering ordered medications as well as keeping accurate medication list in the home and adhereing to medication schedule Problem:Medication Education Goal:Patient/caregive r will demonstrate ability to obtain, store, identify and administer ordered medications, keep accurate medication list in home, and adhere to medication schedule Completed Patient instructed on importance of keeping accurate medication list in home, adhering to medication schedule and proper storage of medications. Risk of Sepsis Description: Patient is at risk for sepsis. Monitor closely for s/s of sepsis. Problem:Sepsis Goal:Patient/caregive r will be able to identify and report symptoms of sepsis Completed SPO2 Description: Notify Dr. Yanira Garcia if pulse ox is <92% at rest. Problem:Physician Specific Parameters Goal:Patient to maintain parameters within physician-specified ranges throughout certification period Completed Instruct on individual fall risk factors and strategies to prevent falls and injuries caused by falls. Problem:Risk for Falls Goal:Manage Risk for falls Completed SN: Patient instructed on Eliminating Environmental Hazards: Keep pathways clear, Move furniture from pathways, Keep rooms and walkways well lit, Wear supportive shoes or non-skid socks and Keep frequently used items within reach Instruct on pain and instruct on strategies to control pain Problem:Pain Goal:Manage Pain Completed patient instructed on techniques to control pain including Pharmacological measures and Non-Pharmacological measures; rest, positioning/elevation and mobility/therapeutic exercise. Define patient s appetite/hydration status and implement strategies to improve compliance with prescribed diet and/or healthy nutrition. Problem:Nutrition/Hyd ration Goal:Manage Nutrition/Hydration Completed reinforced patient on implementing strategies to comply with prescribed diet, healthy nutrition and adequate hydration Instruct on ongoing discharge plan Problem:Discharge Goal:Manage discharge planning Completed Ongoing Discharge plan: Discharge plan discussed with patient including frequency and duration for home SN and plan for transition to: live independently at home without ongoing services. Complete PICC catheter care per order Description: Measure external catheter length with every dressing change. Measure upper arm circumference 10 cm above the anticubital fossa at initial assessment and when clinically indicated. Change extension tubing weekly and PRN. Change dressing weekly and PRN for lifting edges of dressing, visible soiling, presence of moisture, drainage or blood, compromised skin integrity. Cleanse site with 2% chlorhexidine gluconate for 30 seconds. Allow to air dry completely. Apply skin barrier solution and allow to air dry completely. Cover/secure with StatLock , BIOPATCH and transparent semi-permeable dressing. Problem:SN IV THERAPY Goal:Patient/Caregive r will remain free of IV therapy complications Completed Instruct on cardiovascular disease process and management of condition Description: Patient has following cardiac diagnosis(es): Hypertension. Problem:SN Cardiovascular Condition Goal:Improved management of cardiovascular disease Completed patient instructed on cardiac disease process. Instruct and educate on knowledge deficits Problem:SN Learning Assessment Goal:Demonstrate understanding of education Completed patient verbalize and/or demonstrate understanding of nursing education completed today. Education methods include: verbal cues. Further education required to improve knowledge and compliance with fall prevention/home safety strategies, gastrointestinal care management, genitourinary care management, incision/wound care management, nutrition and pain management. 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 Grimaldo Results to Fax lab results to pharmacy: [phone]). Dx code(s): T84.53XA] . If unable to draw blood through IV access device, may draw blood peripherally. Problem:SN Labwork Goal:SN to obtain lab specimen without difficulty when ordered throughout certification period [facility] Visit Details Visit Type -SN AGENCY DC W V ISIT IV Discipline -Long-Term Problems Problem Description Start Date Status Goals Interve ntions Medication Education Disciplines: Skilled Services 05/18/2022 Resolved on 06/27/2022 1 goal linked to scheduled/document ed intervention 1 goal intervention scheduled/document ed in this visit Sepsis Disciplines: Skilled Services 05/18/2022 Resolved on 06/27/2022 1 goal linked to scheduled/document ed intervention 1 goal intervention scheduled/document ed in this visit Physician Specific Parameters Disciplines: Skilled Services 05/18/2022 Resolved on 06/27/2022 1 goal linked to scheduled/document ed intervention 1 goal intervention scheduled/document ed in this visit Risk for Falls Disciplines: Skilled Services 05/18/2022 Resolved on 06/27/2022 1 goal linked to scheduled/document ed intervention 1 goal intervention scheduled/document ed in this visit Pain Disciplines: Skilled Services 05/18/2022 Resolved on 06/27/2022 1 goal linked to scheduled/document ed intervention 1 goal intervention scheduled/document ed in this visit Nutrition/Hydr ation Disciplines: Skilled Services 05/18/2022 Resolved on 06/27/2022 1 goal linked to scheduled/document ed intervention 1 goal intervention scheduled/document ed in this visit Discharge Disciplines: Skilled Services 05/18/2022 Resolved on 06/27/2022 1 goal linked to scheduled/document ed intervention 1 goal intervention scheduled/document ed in this visit Advance Directives Disciplines: Skilled Services 05/18/2022 Resolved on 06/27/2022 1 goal linked to scheduled/document ed intervention SN IV THERAPY Disciplines: SN 05/18/2022 Resolved on 06/27/2022 1 goal linked to scheduled/document ed intervention 1 goal intervention scheduled/document ed in this visit SN Learning Assessment Disciplines: SN 05/18/2022 Resolved on 06/27/2022 1 goal linked to scheduled/document ed intervention 1 goal intervention scheduled/document ed in this visit SN Labwork Disciplines: SN 05/18/2022 Resolved on 06/27/2022 1 goal linked to scheduled/document ed intervention SN Integumentary/ Wounds Disciplines: SN 05/18/2022 Resolved on 06/27/2022 1 goal linked to scheduled/document ed intervention Goals Goal Associated Problem Outcome Goal Met? Visit Notes Patient/caregiver will demonstrate ability to obtain, store, identify and administer ordered medications, keep accurate medication list in home, and adhere to medication schedule Description: Patient/caregiver will demonstrate ability to obtain, store, identify and administer ordered medications, keep accurate medication list in home, and adhere to medication schedule by 07/16 . Medication Education Completed Yes Goal Met Patient/caregiver will be able to identify and report symptoms of sepsis Description: Patient/caregiver will be able to identify signs/symptoms of sepsis infection and will verbalize actions to take if suspected by 07/16. Sepsis Completed Yes Goal MEt Patient to maintain parameters within physician-specified ranges throughout certification period Physician Specific Parameters Completed Yes GOal Met Manage Risk for falls Description: Patient/caregiver will verbalize knowledge of individualized fall prevention strategies by 07/16. Risk for Falls Completed Yes Goal Met Manage Pain Description: Patient/caregiver will verbalize knowledge and understanding of appropriate techniques to control pain, including pain medication and non-pharmacological techniques. Patient will verbalize or demonstrate an acceptable level of pain as evidenced by a pain score of 0/10 and improvement in ability to perform activities of daily living to be achieved by 07/16. Pain Completed Yes Goal Met Manage Nutrition/Hydration Description: Patient/caregiver will verbalize/demonstrate knowledge of prescribed diet and/or healthy nutrition to be achieved by 07/16. Nutrition/Hydration Completed Yes Goal Met Manage discharge planning Description: Patient/caregiver will verbalize understanding of ongoing discharge plan provided related to disease management, arrangements for outpatient and/or community services, obtaining medications, supplies, and DME, as needed throughout certification period. Discharge Completed Yes Goal Met Patient/caregiver will make healthcare providers aware of and any changes to Advance Directives throughout certification period Advance Directives Completed Yes Goal Met Patient/Caregiver will remain free of IV therapy complications Description: Patient/caregiver will verbalize understanding of infusion therapy & demonstrate appropriate access device management as evidenced by patient remaining free of IV complications by CoPat end 6 weeks SN IV THERAPY Completed Yes Goal Met Demonstrate understanding of education Description: Patient and/or caregiver will verbalize understanding of educational instruction provided throughout certification period. SN Learning Assessment Completed Yes Goal Met SN to obtain lab specimen without difficulty when ordered throughout certification period SN Labwork Completed Yes Goal Met Patient/Caregiver will have improved healing and be free of signs and symptoms of complications Description: Patient/caregiver will verbalize management strategies to promote wound healing & prevent complications as evidenced by improved healing & no complications by 07/16/2022. SN Integumentary/Wounds Completed Yes Goal Met Interventions Intervention Associated Problem/Goal Status Variance Visit Notes Medication Education Description: Evaluate/instruct patient/caregiver on obtaining, storing, identifying and administering ordered medications as well as keeping accurate medication list in the home and adhereing to medication schedule Problem:Medication Education Goal:Patient/caregive r will demonstrate ability to obtain, store, identify and administer ordered medications, keep accurate medication list in home, and adhere to medication schedule Completed Patient instructed on importance of keeping accurate medication list in home, adhering to medication schedule and proper storage of medications. Risk of Sepsis Description: Patient is at risk for sepsis. Monitor closely for s/s of sepsis. Problem:Sepsis Goal:Patient/caregive r will be able to identify and report symptoms of sepsis Completed SPO2 Description: Notify Dr. Yanira Garcia if pulse ox is <92% at rest. Problem:Physician Specific Parameters Goal:Patient to maintain parameters within physician-specified ranges throughout certification period Completed Instruct on individual fall risk factors and strategies to prevent falls and injuries caused by falls. Problem:Risk for Falls Goal:Manage Risk for falls Completed SN: Patient instructed on Eliminating Environmental Hazards: Keep pathways clear, Move furniture from pathways, Keep rooms and walkways well lit, Wear supportive shoes or non-skid socks and Keep frequently used items within reach Instruct on pain and instruct on strategies to control pain Problem:Pain Goal:Manage Pain Completed patient instructed on techniques to control pain including Pharmacological measures and Non-Pharmacological measures; rest, positioning/elevation and mobility/therapeutic exercise. Define patient s appetite/hydration status and implement strategies to improve compliance with prescribed diet and/or healthy nutrition. Problem:Nutrition/Hyd ration Goal:Manage Nutrition/Hydration Completed reinforced patient on implementing strategies to comply with prescribed diet, healthy nutrition and adequate hydration Instruct on final discharge plan and deliver discharge instructions Problem:Discharge Goal:Manage discharge planning Completed Delivered Discharge plan: Discharge plan discussed with patient for plan for transition to: live independently at home without ongoing services Remove PICC line/midline catheter per physician order Description: Per Dr. Ashwin Grimaldo honor copat stop date 06/26/22, remove picc line after last dose. Problem:SN IV THERAPY Goal:Patient/Caregive r will remain free of IV therapy complications Completed Completed Patient Tolerated Procedure Patient did tolerate procedure well. Instruct and educate on knowledge deficits Problem:SN Learning Assessment Goal:Demonstrate understanding of education Completed patient verbalize and/or demonstrate understanding of nursing education completed today. Education methods include: verbal cues. Further education required to improve knowledge and compliance with cardiac disease management, hematological care management, incision/wound care management, infusion care management, integumentary care management, medication management, nutrition and pain management. [facility] Visit Details Visit Type -PT SOC Discipline -Physical Therapy Problems Problem Description Start Date Status Goals Interve ntions Medication Education Disciplines: Skilled Services 12/05/2023 Active 1 goal linked to scheduled/docume nted intervention 1 goal intervention scheduled/documen jluis in this visit Sepsis Disciplines: Skilled Services 12/05/2023 Active 1 goal linked to scheduled/docume nted intervention 1 goal intervention scheduled/documen jluis in this visit PT Referral Disciplines: Skilled Services 12/05/2023 Resolved on 12/05/2023 1 goal linked to scheduled/docume nted intervention 1 goal intervention scheduled/documen jluis in this visit Physician Specific Parameters Disciplines: Skilled Services 12/05/2023 Active 1 goal linked to scheduled/docume nted intervention 1 goal intervention scheduled/documen jluis in this visit Risk for Falls Disciplines: Skilled Services 12/05/2023 Active 1 goal linked to scheduled/docume nted intervention 1 goal intervention scheduled/documen jluis in this visit Pain Disciplines: Skilled Services 12/05/2023 Active 1 goal linked to scheduled/docume nted intervention 1 goal intervention scheduled/documen jluis in this visit Nutrition/Hydration Disciplines: Skilled Services 12/05/2023 Active 1 goal linked to scheduled/docume nted intervention 1 goal intervention scheduled/documen jluis in this visit High Risk Medications Disciplines: Skilled Services 12/05/2023 Active 1 goal linked to scheduled/docume nted intervention 2 goal interventions scheduled/documen jluis in this visit Discharge Disciplines: Skilled Services 12/05/2023 Active 1 goal linked to scheduled/docume nted intervention 1 goal intervention scheduled/documen jluis in this visit Advance Directives Disciplines: Skilled Services 12/05/2023 Resolved on 12/05/2023 1 goal linked to scheduled/docume nted intervention 1 goal intervention scheduled/documen jluis in this visit PT Impaired muscle performance and/or ROM Disciplines: PT 12/05/2023 Active 1 goal linked to scheduled/docume nted intervention 1 goal intervention scheduled/documen jluis in this visit PT Orthopedic Condition Disciplines: PT 12/05/2023 Active 1 goal linked to scheduled/docume nted intervention 3 goal interventions scheduled/documen jluis in this visit PT Cardiovascular Disease Disciplines: PT 12/05/2023 Active 1 goal linked to scheduled/docume nted intervention 1 goal intervention scheduled/documen jluis in this visit PT Pulmonary Disease Disciplines: PT 12/05/2023 Active 1 goal linked to scheduled/docume nted intervention 1 goal intervention scheduled/documen jluis in this visit Goals Goal Associated Problem Outcome Goal Met? Visit Notes Patient/caregiver will demonstrate ability to obtain, store, identify and administer ordered medications, keep accurate medication list in home, and adhere to medication schedule Description: Patient/caregiver will demonstrate ability to obtain, store, identify and administer ordered medications, keep accurate medication list in home, and adhere to medication schedule by 02/02/24. Medication Education No Patient/caregiver will be able to identify and report symptoms of sepsis Description: Patient/caregiver will be able to identify signs/symptoms of sepsis infection and will verbalize actions to take if suspected by 02/02/24. Sepsis No Patient will be referred to additional discipline as needed PT Referral Completed Yes Patient to maintain parameters within physician-specified ranges throughout certification period Physician Specific Parameters No Manage Risk for falls Description: Patient/caregiver will verbalize knowledge of individualized fall prevention strategies by 02/02/24. Risk for Falls No Manage Pain Description: Patient/caregiver will verbalize knowledge and understanding of appropriate techniques to control pain, including pain medication and non-pharmacological techniques. Patient will verbalize or demonstrate an acceptable level of pain as evidenced by a pain score of 0/10 and improvement in ability to perform activities of daily living to be achieved by 02/02/24. Pain No Manage Nutrition/Hydration Description: Patient/caregiver will verbalize/demonstrate knowledge of prescribed diet and/or healthy nutrition to be achieved by 02/02/24, Nutrition/Hydration No Patient/caregiver will teach back high risk medication side effect and precaution education Description: STG Patient/caregiver will verbalize understanding of high risk medication side effects and precautions to be achieved by 12/19/23. LTG Patient/caregiver will continue to verbalize understanding of high risk medication side effects and precautions throughout certification period. High Risk Medications No Manage discharge planning Description: Patient/caregiver will verbalize understanding of ongoing discharge plan provided related to disease management, arrangements for outpatient and/or community services, obtaining medications, supplies, and DME, as needed throughout certification period. Discharge No Patient/caregiver will make healthcare providers aware of and any changes to Advance Directives throughout certification period Advance Directives Completed Yes Improved Muscle Performance and/or ROM Description: STG: Patient will demonstrate improved right knee active range of motion to 5-95 degrees, to meet functional goals, to be achieved by 12/19/23. LTG: Patient and/or caregiver will verbalize/demonstrate independence with home exercise program, to improve functional mobility, to be achieved by 02/02/24. PT Impaired muscle performance and/or ROM No Manage Orthopedic Condition Description: Improve patient and/or caregiver understanding of post surgical and/or non-surgical orthopedic intervention management as evidenced by patient and/or caregiver able to verbalize, demonstrate, and teach back instruction, to be achieved by 12/19/23. PT Orthopedic Condition No Manage Secondary Cardiovascular disease Description: Improve patient and/or caregiver understanding of secondary cardiovascular disease management as evidenced by patient and/or caregiver able to verbalize, demonstrate, and teach back instruction, to be achieved by 12/19/23. PT Cardiovascular Disease No Manage Secondary Pulmonary Disease Description: Improve patient and/or caregiver understanding of secondary pulmonary disease management as evidenced by patient and/or caregiver able to verbalize, demonstrate, and teach back instruction, to be achieved by 12/19/23. PT Pulmonary Disease No Interventions Intervention Associated Problem/Goal Status Variance Visit Notes Medication Education Description: Evaluate/instruct patient/caregiver on obtaining, storing, identifying and administering ordered medications as well as keeping accurate medication list in the home and adhereing to medication schedule Problem:Medication Education Goal:Patient/caregive r will demonstrate ability to obtain, store, identify and administer ordered medications, keep accurate medication list in home, and adhere to medication schedule Completed Patient instructed on importance of keeping accurate medication list in home, need to take up-to-date medication list to all medical provider appointments and adhering to medication schedule. Risk of Sepsis Description: Patient is at risk for sepsis. Monitor closely for s/s of sepsis. Problem:Sepsis Goal:Patient/caregive r will be able to identify and report symptoms of sepsis Completed PT evaluation and treatment Description: Evaluate and treat for the assessment of functional deficits and establishment of appropriate interventions and education, including recommendations for functional mobility training, balance training for fall reduction, and strengthening. Problem:PT Referral Goal:Patient will be referred to additional discipline as needed Completed SPO2 Description: Notify Dr. Garcia if pulse ox is <92% at rest. Problem:Physician Specific Parameters Goal:Patient to maintain parameters within physician-specified ranges throughout certification period Completed Instruct on individual fall risk factors and strategies to prevent falls and injuries caused by falls. Problem:Risk for Falls Goal:Manage Risk for falls Completed PT: Patient instructed on Eliminating Environmental Hazards: Keep pathways clear, Remove unsafe rugs, Move furniture from pathways, Keep rooms and walkways well lit, Wear supportive shoes or non-skid socks and Keep frequently used items within reach Managing Impaired Functional Mobility: Use assistive device(s): front wheeled walker Instruct on pain and instruct on strategies to control pain Problem:Pain Goal:Manage Pain Completed patient instructed on techniques to control pain including Pharmacological measures and Non-Pharmacological measures; positioning/elevation and mobility/therapeutic exercise. Define patient s appetite/hydration status and implement strategies to improve compliance with prescribed diet and/or healthy nutrition. Problem:Nutrition/Hyd ration Goal:Manage Nutrition/Hydration Completed instructed patient on implementing strategies to comply with healthy nutrition and adequate hydration Antiplatelet- educated on high risk medication Problem:High Risk Medications Goal:Patient/caregive r will teach back high risk medication side effect and precaution education Completed patient educated on taking medication(s) as prescribed by provider. Do not stop medication or alter doses without speaking with your provider. Discuss medication effectiveness or side effect concerns with your provider and home care team. Discuss all medications you are taking, even kpiy-ygo-[id number] medicines, with your provider and pharmacist since many drugs can interact with antiplatelet medications. If you forget to take a dose, DO NOT take a double dose. Take the missed dose as soon as possible on the same day. DO NOT take a double dose the next day to make up for the missed dose. Watch for signs of abnormal or excessive bleeding and bruising (refer to Bleeding Precautions education). Call your health care provider right away if you suspect something is wrong. Antibiotic- educated on high risk medication Problem:High Risk Medications Goal:Patient/caregive r will teach back high risk medication side effect and precaution education Completed patient educated on taking medication(s) as prescribed by provider. Do not stop medication or alter doses without speaking with your provider. Discuss medication effectiveness or side effect concerns with your provider and home care team. Take the full dispensed amount even if you start feeling better, as bacteria can become resistant to antibiotic treatment if you do not finish your prescription. Common side effects are upset stomach and diarrhea. Take your antibiotics with food unless otherwise indicated to help with indigestion. Taking an gxzd-ngk-zmxjoka probiotic or eating yogurt with live and active cultures three times a day can help prevent antibiotic-associated diarrhea. Call your provider immediately if you develop rashes or hives as this could be a delayed allergic reaction. Seek emergency treatment if you develop severe allergic reaction symptoms such as mouth or tongue swelling. Instruct on ongoing discharge plan Problem:Discharge Goal:Manage discharge planning Completed Ongoing Discharge plan: Discharge plan discussed with patient including frequency and duration for home PT and plan for transition to: outpatient therapy. Determine patient's Advance Directive Status Description: Patient does not have advance directives. Patient/Caregiver declined Advance Directive information. Problem:Advance Directives Goal:Patient/caregive r will make healthcare providers aware of and any changes to Advance Directives throughout certification period Completed Discussed Advance Directives with Patient and/or Caregiver. Referred patient to Home Care handbook for further information on Healthcare DPOA & Living Will. Physical Therapy Therapeutic Exercises Problem:PT Impaired muscle performance and/or ROM Goal:Improved Muscle Performance and/or ROM Completed patient instructed on strengthening and range of motion exercises including ankle pumps, quad and gluteal sets, and closed chain rt knee flexion with visual, verbal and written cues for technique. patient instructed to perform home exercise program hourly. Instruct on orthopedic precautions and weight bearing restrictions Description: Orthopedic precautions including right total knee: no knee flexed over pillow at rest and no twisting. Weight bearing restrictions include: WBAT of involved extremity. Problem:PT Orthopedic Condition Goal:Manage Orthopedic Condition Completed patient instructed on orthopedic precautions and weight bearing restrictions. Instruct on management of edema Problem:PT Orthopedic Condition Goal:Manage Orthopedic Condition Completed Instruct patient on management of edema including elevation of rt foot above the level of the heart, ice and benefits of activity. Instruct on self-management of post surgical and/or non-surgical orthopedic intervention Problem:PT Orthopedic Condition Goal:Manage Orthopedic Condition Completed patient instructed on staying well hydrated, eating foods with high protein, signs and symptoms of infection, signs and symptoms of DVT/PE, follow provider guidance for showering , instructed on when to call provider and instructed on when to call 911. Instruct on signs, symptoms, and management of secondary cardiovascular disease Problem:PT Cardiovascular Disease Goal:Manage Secondary Cardiovascular disease Completed Instructed patient on diagnosis of HTN. Instruct on signs, symptoms, and management of secondary pulmonary disease Problem:PT Pulmonary Disease Goal:Manage Secondary Pulmonary Disease Completed patient instructed on diagnosis of asthma. [facility] Visit Details Visit Type -PT CASE MANAGEME NT VISIT Discipline -Physical Therapy Problems Problem Description Start Date Status Goals Interve ntions Medication Education Disciplines: Skilled Services 12/05/2023 Active 1 goal linked to scheduled/document ed intervention 1 goal intervention scheduled/document ed in this visit Sepsis Disciplines: Skilled Services 12/05/2023 Active 1 goal linked to scheduled/document ed intervention 1 goal intervention scheduled/document ed in this visit Physician Specific Parameters Disciplines: Skilled Services 12/05/2023 Active 1 goal linked to scheduled/document ed intervention 1 goal intervention scheduled/document ed in this visit Risk for Falls Disciplines: Skilled Services 12/05/2023 Active 1 goal linked to scheduled/document ed intervention 1 goal intervention scheduled/document ed in this visit Pain Disciplines: Skilled Services 12/05/2023 Active 1 goal linked to scheduled/document ed intervention 1 goal intervention scheduled/document ed in this visit Nutrition/Hydrati on Disciplines: Skilled Services 12/05/2023 Active 1 goal linked to scheduled/document ed intervention 1 goal intervention scheduled/document ed in this visit High Risk Medications Disciplines: Skilled Services 12/05/2023 Active 1 goal linked to scheduled/document ed intervention 1 goal intervention scheduled/document ed in this visit Discharge Disciplines: Skilled Services 12/05/2023 Active 1 goal linked to scheduled/document ed intervention 2 goal interventions scheduled/document ed in this visit PT Impaired muscle performance and/or ROM Disciplines: PT 12/05/2023 Active 1 goal linked to scheduled/document ed intervention 1 goal intervention scheduled/document ed in this visit PT Impaired mobility Disciplines: PT 12/05/2023 Active 1 goal linked to scheduled/document ed intervention 1 goal intervention scheduled/document ed in this visit PT Impaired gait Disciplines: PT 12/05/2023 Active 1 goal linked to scheduled/document ed intervention 1 goal intervention scheduled/document ed in this visit PT Orthopedic Condition Disciplines: PT 12/05/2023 Active 1 goal linked to scheduled/document ed intervention 3 goal interventions scheduled/document ed in this visit PT Learning Assessment Disciplines: PT 12/05/2023 Active 1 goal linked to scheduled/document ed intervention 1 goal intervention scheduled/document ed in this visit Goals Goal Associated Problem Outcome Goal Met? Visit Notes Patient/caregiver will demonstrate ability to obtain, store, identify and administer ordered medications, keep accurate medication list in home, and adhere to medication schedule Description: Patient/caregiver will demonstrate ability to obtain, store, identify and administer ordered medications, keep accurate medication list in home, and adhere to medication schedule by 02/02/24. Medication Education No Patient/caregiver will be able to identify and report symptoms of sepsis Description: Patient/caregiver will be able to identify signs/symptoms of sepsis infection and will verbalize actions to take if suspected by 02/02/24. Sepsis No Patient to maintain parameters within physician-specified ranges throughout certification period Physician Specific Parameters No Manage Risk for falls Description: Patient/caregiver will verbalize knowledge of individualized fall prevention strategies by 02/02/24. Risk for Falls No Manage Pain Description: Patient/caregiver will verbalize knowledge and understanding of appropriate techniques to control pain, including pain medication and non-pharmacological techniques. Patient will verbalize or demonstrate an acceptable level of pain as evidenced by a pain score of 0/10 and improvement in ability to perform activities of daily living to be achieved by 02/02/24. Pain No Manage Nutrition/Hydration Description: Patient/caregiver will verbalize/demonstrate knowledge of prescribed diet and/or healthy nutrition to be achieved by 02/02/24, Nutrition/Hydration No Patient/caregiver will teach back high risk medication side effect and precaution education Description: STG Patient/caregiver will verbalize understanding of high risk medication side effects and precautions to be achieved by 12/19/23. LTG Patient/caregiver will continue to verbalize understanding of high risk medication side effects and precautions throughout certification period. High Risk Medications No Manage discharge planning Description: Patient/caregiver will verbalize understanding of ongoing discharge plan provided related to disease management, arrangements for outpatient and/or community services, obtaining medications, supplies, and DME, as needed throughout certification period. Discharge No Improved Muscle Performance and/or ROM Description: STG: Patient will demonstrate improved right knee active range of motion to 5-95 degrees, to meet functional goals, to be achieved by 12/19/23. LTG: Patient and/or caregiver will verbalize/demonstrate independence with home exercise program, to improve functional mobility, to be achieved by 02/02/24. PT Impaired muscle performance and/or ROM No Improved Transfers Description: STG: Patient will demonstrate safe transfers to/from bed, chair and toilet independently, to be achieved by 12/19/23. PT Impaired mobility No Improved Gait Description: STG: Patient will demonstrate improved gait ability as evidenced by ambulation 150 feet with front wheeled walker or cane independently with AD, in order to access all areas of house and driveway, to be achieved by 12/19/23. PT Impaired gait No Manage Orthopedic Condition Description: Improve patient and/or caregiver understanding of post surgical and/or non-surgical orthopedic intervention management as evidenced by patient and/or caregiver able to verbalize, demonstrate, and teach back instruction, to be achieved by 12/19/23. PT Orthopedic Condition No Demonstrate understanding of education Description: Patient and/or caregiver will understand educational instruction to be achieved by 12/19/23. PT Learning Assessment No Interventions Intervention Associated Problem/Goal Status Variance Visit Notes Medication Education Description: Evaluate/instruct patient/caregiver on obtaining, storing, identifying and administering ordered medications as well as keeping accurate medication list in the home and adhereing to medication schedule Problem:Medication Education Goal:Patient/caregive r will demonstrate ability to obtain, store, identify and administer ordered medications, keep accurate medication list in home, and adhere to medication schedule Completed Patient instructed on adhering to medication schedule. Risk of Sepsis Description: Patient is at risk for sepsis. Monitor closely for s/s of sepsis. Problem:Sepsis Goal:Patient/caregive r will be able to identify and report symptoms of sepsis Completed SPO2 Description: Notify Dr. Garcia if pulse ox is <92% at rest. Problem:Physician Specific Parameters Goal:Patient to maintain parameters within physician-specified ranges throughout certification period Completed Instruct on individual fall risk factors and strategies to prevent falls and injuries caused by falls. Problem:Risk for Falls Goal:Manage Risk for falls Completed PT: Patient instructed on Eliminating Environmental Hazards: Keep pathways clear, Wear supportive shoes or non-skid socks and Keep frequently used items within reach Managing Impaired Functional Mobility: Use assistive device(s): front wheeled walker Managing Pain Instruct on pain and instruct on strategies to control pain Problem:Pain Goal:Manage Pain Completed patient instructed on techniques to control pain including Pharmacological measures and Non-Pharmacological measures; rest, positioning/elevation, use of DME/assistive devices and use of thermal modalities, apply ice to affected area for the following prescribed frequency: after completed HEP and as needed. Define patient s appetite/hydration status and implement strategies to improve compliance with prescribed diet and/or healthy nutrition. Problem:Nutrition/Hyd ration Goal:Manage Nutrition/Hydration Completed instructed patient on implementing strategies to comply with healthy nutrition and adequate hydration Antiplatelet- educated on high risk medication Problem:High Risk Medications Goal:Patient/caregive r will teach back high risk medication side effect and precaution education Completed patient educated on taking medication(s) as prescribed by provider. Do not stop medication or alter doses without speaking with your provider. Discuss medication effectiveness or side effect concerns with your provider and home care team. Discuss all medications you are taking, even [id number] medicines, with your provider and pharmacist since many drugs can interact with antiplatelet medications. If you forget to take a dose, DO NOT take a double dose. Take the missed dose as soon as possible on the same day. DO NOT take a double dose the next day to make up for the missed dose. Watch for signs of abnormal or excessive bleeding and bruising (refer to Bleeding Precautions education). Call your health care provider right away if you suspect something is wrong. Instruct on ongoing discharge plan Problem:Discharge Goal:Manage discharge planning Completed Ongoing Discharge plan: Discharge plan discussed with patient including frequency and duration for home PT and plan for transition to: outpatient therapy. Instruct on importance of follow-up appts and continued monitoring with medical provider &/or chronic care clinic Problem:Discharge Goal:Manage discharge planning Completed Education provided on importance of compliance with follow-up appointment(s). Physical Therapy Therapeutic Exercises Problem:PT Impaired muscle performance and/or ROM Goal:Improved Muscle Performance and/or ROM Completed Developed, implemented, and instructed patient/caregiver on strengthening/range of motion, exercises with supine: ankle pumps, quad sets, glute sets, SAQ, heel slides, SLR, and hip abduction x10 reps RLE. Verbal cues provided for proper technique and pacing exercises. Instructed patient to perform exercises slowly for maximum benefit. Patient required AAROM for heel slides this date. Instructed patient and caregiver to perform HEP 3 x daily in order to continue to improve ROM and strength for functional mobility. Educated to walk with walker every 1-2 hours. Patient verbalized understanding and compliance. Physical Therapy Transfer Training Problem:PT Impaired mobility Goal:Improved Transfers Completed Transfer training and instruction to patient on safe transfers to and from bed and chair with stand by assist and verbal cues for walker placement. Training on the following adaptive equipment/durable medical equipment: walker. Physical Therapy Gait Training Problem:PT Impaired gait Goal:Improved Gait Completed Gait training and instruction to patient on safe ambulation with front wheeled walker for 120 feet with stand by assist, with verbal cues for corrections of gait deviations including increase R knee flexion with swing phase then heel strike vs stiff knee gait. Instruct on orthopedic precautions and weight bearing restrictions Description: Orthopedic precautions including right total knee: no knee flexed over pillow at rest and no twisting. Weight bearing restrictions include: WBAT of involved extremity. Problem:PT Orthopedic Condition Goal:Manage Orthopedic Condition Completed patient instructed on orthopedic precautions and weight bearing restrictions. Instruct on management of edema Problem:PT Orthopedic Condition Goal:Manage Orthopedic Condition Completed Instruct patient on management of edema including elevation of RLE above the level of the heart and ice. Instruct on self-management of post surgical and/or non-surgical orthopedic intervention Problem:PT Orthopedic Condition Goal:Manage Orthopedic Condition Completed patient instructed on managagement of orthopedic condition, staying well hydrated, eating foods with high protein, signs and symptoms of infection, instructed on when to call provider and instructed on when to call 911. Instruct and educate on knowledge deficits Problem:PT Learning Assessment Goal:Demonstrate understanding of education Completed patient verbalize and/or demonstrate understanding of physical therapy education including orthopedic condition management, weight bearing precautions, fall prevention strategies, home safety, functional activity and home exercise program. Education methods include: verbal cues, written instructions and teach back. Further education required to improve knowledge and compliance with fall prevention strategies, functional activity and home exercise program. documented in this encounter [facility] home Plan of care note* Visit Details Visit Type -PT ROUTINE Discipline -Physical Therapy Problems Problem Description Start Date Status Goals Interve ntions Medication Education Disciplines: Skilled Services 12/05/2023 Active 1 goal linked to scheduled/document ed intervention 1 goal intervention scheduled/document ed in this visit Sepsis Disciplines: Skilled Services 12/05/2023 Active 1 goal linked to scheduled/document ed intervention 1 goal intervention scheduled/document ed in this visit Physician Specific Parameters Disciplines: Skilled Services 12/05/2023 Active 1 goal linked to scheduled/document ed intervention 1 goal intervention scheduled/document ed in this visit Risk for Falls Disciplines: Skilled Services 12/05/2023 Active 1 goal linked to scheduled/document ed intervention 1 goal intervention scheduled/document ed in this visit Pain Disciplines: Skilled Services 12/05/2023 Active 1 goal linked to scheduled/document ed intervention 1 goal intervention scheduled/document ed in this visit Nutrition/Hydrati on Disciplines: Skilled Services 12/05/2023 Active 1 goal linked to scheduled/document ed intervention 1 goal intervention scheduled/document ed in this visit High Risk Medications Disciplines: Skilled Services 12/05/2023 Active 1 goal linked to scheduled/document ed intervention 1 goal intervention scheduled/document ed in this visit Discharge Disciplines: Skilled Services 12/05/2023 Active 1 goal linked to scheduled/document ed intervention 1 goal intervention scheduled/document ed in this visit PT Impaired muscle performance and/or ROM Disciplines: PT 12/05/2023 Active 1 goal linked to scheduled/document ed intervention 1 goal intervention scheduled/document ed in this visit PT Impaired mobility Disciplines: PT 12/05/2023 Active 1 goal linked to scheduled/document ed intervention 1 goal intervention scheduled/document ed in this visit PT Impaired gait Disciplines: PT 12/05/2023 Active 1 goal linked to scheduled/document ed intervention 1 goal intervention scheduled/document ed in this visit PT Impaired balance Disciplines: PT 12/05/2023 Active 1 goal linked to scheduled/document ed intervention 1 goal intervention scheduled/document ed in this visit PT Orthopedic Condition Disciplines: PT 12/05/2023 Active 1 goal linked to scheduled/document ed intervention 4 goal interventions scheduled/document ed in this visit PT Learning Assessment Disciplines: PT 12/05/2023 Active 1 goal linked to scheduled/document ed intervention 1 goal intervention scheduled/document ed in this visit Goals Goal Associated Problem Outcome Goal Met? Visit Notes Patient/caregiver will demonstrate ability to obtain, store, identify and administer ordered medications, keep accurate medication list in home, and adhere to medication schedule Description: Patient/caregiver will demonstrate ability to obtain, store, identify and administer ordered medications, keep accurate medication list in home, and adhere to medication schedule by 02/02/24. Medication Education No Patient/caregiver will be able to identify and report symptoms of sepsis Description: Patient/caregiver will be able to identify signs/symptoms of sepsis infection and will verbalize actions to take if suspected by 02/02/24. Sepsis No Patient to maintain parameters within physician-specified ranges throughout certification period Physician Specific Parameters No Manage Risk for falls Description: Patient/caregiver will verbalize knowledge of individualized fall prevention strategies by 02/02/24. Risk for Falls No Manage Pain Description: Patient/caregiver will verbalize knowledge and understanding of appropriate techniques to control pain, including pain medication and non-pharmacological techniques. Patient will verbalize or demonstrate an acceptable level of pain as evidenced by a pain score of 0/10 and improvement in ability to perform activities of daily living to be achieved by 02/02/24. Pain No Manage Nutrition/Hydration Description: Patient/caregiver will verbalize/demonstrate knowledge of prescribed diet and/or healthy nutrition to be achieved by 02/02/24, Nutrition/Hydration No Patient/caregiver will teach back high risk medication side effect and precaution education Description: STG Patient/caregiver will verbalize understanding of high risk medication side effects and precautions to be achieved by 12/19/23. LTG Patient/caregiver will continue to verbalize understanding of high risk medication side effects and precautions throughout certification period. High Risk Medications No Manage discharge planning Description: Patient/caregiver will verbalize understanding of ongoing discharge plan provided related to disease management, arrangements for outpatient and/or community services, obtaining medications, supplies, and DME, as needed throughout certification period. Discharge No Improved Muscle Performance and/or ROM Description: STG: Patient will demonstrate improved right knee active range of motion to 5-95 degrees, to meet functional goals, to be achieved by 12/19/23. LTG: Patient and/or caregiver will verbalize/demonstrate independence with home exercise program, to improve functional mobility, to be achieved by 02/02/24. PT Impaired muscle performance and/or ROM No Improved Transfers Description: STG: Patient will demonstrate safe transfers to/from bed, chair and toilet independently, to be achieved by 12/19/23. PT Impaired mobility No Improved Gait Description: STG: Patient will demonstrate improved gait ability as evidenced by ambulation 150 feet with front wheeled walker or cane independently with AD, in order to access all areas of house and driveway, to be achieved by 12/19/23. PT Impaired gait No Improved Balance Description: STG: Patient will demonstrate improved standing balance to meet functional goals as evidenced by TUG score of 12, to be achieved by 12/19/23. PT Impaired balance No Manage Orthopedic Condition Description: Improve patient and/or caregiver understanding of post surgical and/or non-surgical orthopedic intervention management as evidenced by patient and/or caregiver able to verbalize, demonstrate, and teach back instruction, to be achieved by 12/19/23. PT Orthopedic Condition No Demonstrate understanding of education Description: Patient and/or caregiver will understand educational instruction to be achieved by 12/19/23. PT Learning Assessment No Interventions Intervention Associated Problem/Goal Status Variance Visit Notes Medication Education Description: Evaluate/instruct patient/caregiver on obtaining, storing, identifying and administering ordered medications as well as keeping accurate medication list in the home and adhereing to medication schedule Problem:Medication Education Goal:Patient/caregive r will demonstrate ability to obtain, store, identify and administer ordered medications, keep accurate medication list in home, and adhere to medication schedule Completed Patient instructed on adhering to medication schedule. Risk of Sepsis Description: Patient is at risk for sepsis. Monitor closely for s/s of sepsis. Problem:Sepsis Goal:Patient/caregive r will be able to identify and report symptoms of sepsis Completed SPO2 Description: Notify Dr. Garcia if pulse ox is <92% at rest. Problem:Physician Specific Parameters Goal:Patient to maintain parameters within physician-specified ranges throughout certification period Completed Instruct on individual fall risk factors and strategies to prevent falls and injuries caused by falls. Problem:Risk for Falls Goal:Manage Risk for falls Completed PT: Patient instructed on Eliminating Environmental Hazards: Keep pathways clear and Wear supportive shoes or non-skid socks Managing Impaired Functional Mobility: Use assistive device(s): front wheeled walker Managing Pain Instruct on pain and instruct on strategies to control pain Problem:Pain Goal:Manage Pain Completed patient instructed on techniques to control pain including Pharmacological measures and Non-Pharmacological measures; rest, positioning/elevation, use of DME/assistive devices and use of thermal modalities, apply ice to affected area for the following prescribed frequency: PRN and after completing HEP. Define patient s appetite/hydration status and implement strategies to improve compliance with prescribed diet and/or healthy nutrition. Problem:Nutrition/Hyd ration Goal:Manage Nutrition/Hydration Completed instructed patient on implementing strategies to comply with healthy nutrition and adequate hydration Antiplatelet- educated on high risk medication Problem:High Risk Medications Goal:Patient/caregive r will teach back high risk medication side effect and precaution education Completed patient educated on taking medication(s) as prescribed by provider. Do not stop medication or alter doses without speaking with your provider. Discuss medication effectiveness or side effect concerns with your provider and home care team. Discuss all medications you are taking, even [id number]-[id number] medicines, with your provider and pharmacist since many drugs can interact with antiplatelet medications. If you forget to take a dose, DO NOT take a double dose. Take the missed dose as soon as possible on the same day. DO NOT take a double dose the next day to make up for the missed dose. Watch for signs of abnormal or excessive bleeding and bruising (refer to Bleeding Precautions education). Call your health care provider right away if you suspect something is wrong. Instruct on ongoing discharge plan Problem:Discharge Goal:Manage discharge planning Completed Ongoing Discharge plan: Discharge plan discussed with patient including frequency and duration for home PT and plan for transition to: outpatient therapy. Physical Therapy Therapeutic Exercises Problem:PT Impaired muscle performance and/or ROM Goal:Improved Muscle Performance and/or ROM Completed Developed, implemented, and instructed patient/caregiver on strengthening/range of motion, exercises with supine: ankle pumps, quad sets, glute sets, SAQ, heel slides, SLR, and hip abduction x10 reps RLE. Completed additional knee flexion with AAROM x10 reps. Verbal cues provided for proper technique and pacing exercises. Instructed patient to perform exercises slowly for maximum benefit. Completed and added seated heel slides and LAQ x10 reps to HEP. Instructed patient and caregiver to perform HEP 3 x daily in order to continue to improve ROM and strength for functional mobility. Physical Therapy Transfer Training Problem:PT Impaired mobility Goal:Improved Transfers Completed Transfer training and instruction to patient on safe transfers to and from bed and chair with supervision and verbal cues for walker placement. Training on the following adaptive equipment/durable medical equipment: walker. Physical Therapy Gait Training Problem:PT Impaired gait Goal:Improved Gait Completed Gait training and instruction to patient on safe ambulation with front wheeled walker for 140 feet with supervision and stand by assist, with verbal cues for corrections of gait deviations including R knee flexion with swing phase and even stride length. Physical Therapy Balance Training Problem:PT Impaired balance Goal:Improved Balance Completed Developed, implemented, and instructed patient on standing balance exercises including B heel raises and R knee flexion with BUE support at kitchen sink. Required min verbal cues on sequencing. Instruct on orthopedic precautions and weight bearing restrictions Description: Orthopedic precautions including right total knee: no knee flexed over pillow at rest and no twisting. Weight bearing restrictions include: WBAT of involved extremity. Problem:PT Orthopedic Condition Goal:Manage Orthopedic Condition Completed patient instructed on orthopedic precautions and weight bearing restrictions. Instruct on management of edema Problem:PT Orthopedic Condition Goal:Manage Orthopedic Condition Completed Instruct patient on management of edema including elevation of RLE above the level of the heart and ice. Physical therapy to perform surgical incision/wound management Description: Removal of post-op dressing on 12/09-12/11. If no drainage is present, leave open to air; if drainage is present, cover with clean dressing and contact provider and PT case packer and sealer. Problem:PT Orthopedic Condition Goal:Manage Orthopedic Condition Completed Intervention completed this date. Instruct on self-management of post surgical and/or non-surgical orthopedic intervention Problem:PT Orthopedic Condition Goal:Manage Orthopedic Condition Completed patient instructed on managagement of orthopedic condition, staying well hydrated, eating foods with high protein, signs and symptoms of infection and instructed on when to call provider. Instruct and educate on knowledge deficits Problem:PT Learning Assessment Goal:Demonstrate understanding of education Completed patient verbalize and/or demonstrate understanding of physical therapy education including orthopedic condition management, weight bearing precautions, fall prevention strategies, home safety and home exercise program. Education methods include: verbal cues, written instructions and teach back. Further education required to improve knowledge and compliance with functional activity and home exercise program[facility] Visit Details Visit Type -PT ROUTINE Discipline -Physical Therapy Problems Problem Description Start Date Status Goals Interve ntions Medication Education Disciplines: Skilled Services 12/05/2023 Active 1 goal linked to scheduled/document ed intervention 1 goal intervention scheduled/document ed in this visit Sepsis Disciplines: Skilled Services 12/05/2023 Active 1 goal linked to scheduled/document ed intervention 1 goal intervention scheduled/document ed in this visit Physician Specific Parameters Disciplines: Skilled Services 12/05/2023 Active 1 goal linked to scheduled/document ed intervention 1 goal intervention scheduled/document ed in this visit Risk for Falls Disciplines: Skilled Services 12/05/2023 Active 1 goal linked to scheduled/document ed intervention 1 goal intervention scheduled/document ed in this visit Pain Disciplines: Skilled Services 12/05/2023 Active 1 goal linked to scheduled/document ed intervention 1 goal intervention scheduled/document ed in this visit Nutrition/Hydrati on Disciplines: Skilled Services 12/05/2023 Active 1 goal linked to scheduled/document ed intervention 1 goal intervention scheduled/document ed in this visit High Risk Medications Disciplines: Skilled Services 12/05/2023 Active 1 goal linked to scheduled/document ed intervention 1 goal intervention scheduled/document ed in this visit Discharge Disciplines: Skilled Services 12/05/2023 Active 1 goal linked to scheduled/document ed intervention 2 goal interventions scheduled/document ed in this visit PT Impaired muscle performance and/or ROM Disciplines: PT 12/05/2023 Active 1 goal linked to scheduled/document ed intervention 1 goal intervention scheduled/document ed in this visit PT Impaired mobility Disciplines: PT 12/05/2023 Active 1 goal linked to scheduled/document ed intervention 1 goal intervention scheduled/document ed in this visit PT Impaired gait Disciplines: PT 12/05/2023 Active 1 goal linked to scheduled/document ed intervention 1 goal intervention scheduled/document ed in this visit PT Impaired balance Disciplines: PT 12/05/2023 Active 1 goal linked to scheduled/document ed intervention 1 goal intervention scheduled/document ed in this visit PT Orthopedic Condition Disciplines: PT 12/05/2023 Active 1 goal linked to scheduled/document ed intervention 3 goal interventions scheduled/document ed in this visit PT Learning Assessment Disciplines: PT 12/05/2023 Active 1 goal linked to scheduled/document ed intervention 1 goal intervention scheduled/document ed in this visit Goals Goal Associated Problem Outcome Goal Met? Visit Notes Patient/caregiver will demonstrate ability to obtain, store, identify and administer ordered medications, keep accurate medication list in home, and adhere to medication schedule Description: Patient/caregiver will demonstrate ability to obtain, store, identify and administer ordered medications, keep accurate medication list in home, and adhere to medication schedule by 02/02/24. Medication Education No Patient/caregiver will be able to identify and report symptoms of sepsis Description: Patient/caregiver will be able to identify signs/symptoms of sepsis infection and will verbalize actions to take if suspected by 02/02/24. Sepsis No Patient to maintain parameters within physician-specified ranges throughout certification period Physician Specific Parameters No Manage Risk for falls Description: Patient/caregiver will verbalize knowledge of individualized fall prevention strategies by 02/02/24. Risk for Falls No Manage Pain Description: Patient/caregiver will verbalize knowledge and understanding of appropriate techniques to control pain, including pain medication and non-pharmacological techniques. Patient will verbalize or demonstrate an acceptable level of pain as evidenced by a pain score of 0/10 and improvement in ability to perform activities of daily living to be achieved by 02/02/24. Pain No Manage Nutrition/Hydration Description: Patient/caregiver will verbalize/demonstrate knowledge of prescribed diet and/or healthy nutrition to be achieved by 02/02/24, Nutrition/Hydration No Patient/caregiver will teach back high risk medication side effect and precaution education Description: STG Patient/caregiver will verbalize understanding of high risk medication side effects and precautions to be achieved by 12/19/23. LTG Patient/caregiver will continue to verbalize understanding of high risk medication side effects and precautions throughout certification period. High Risk Medications No Manage discharge planning Description: Patient/caregiver will verbalize understanding of ongoing discharge plan provided related to disease management, arrangements for outpatient and/or community services, obtaining medications, supplies, and DME, as needed throughout certification period. Discharge No Improved Muscle Performance and/or ROM Description: STG: Patient will demonstrate improved right knee active range of motion to 5-95 degrees, to meet functional goals, to be achieved by 12/19/23. LTG: Patient and/or caregiver will verbalize/demonstrate independence with home exercise program, to improve functional mobility, to be achieved by 02/02/24. PT Impaired muscle performance and/or ROM No Improved Transfers Description: STG: Patient will demonstrate safe transfers to/from bed, chair and toilet independently, to be achieved by 12/19/23. PT Impaired mobility No Improved Gait Description: STG: Patient will demonstrate improved gait ability as evidenced by ambulation 150 feet with front wheeled walker or cane independently with AD, in order to access all areas of house and driveway, to be achieved by 12/19/23. PT Impaired gait No Improved Balance Description: STG: Patient will demonstrate improved standing balance to meet functional goals as evidenced by TUG score of 12, to be achieved by 12/19/23. PT Impaired balance No Manage Orthopedic Condition Description: Improve patient and/or caregiver understanding of post surgical and/or non-surgical orthopedic intervention management as evidenced by patient and/or caregiver able to verbalize, demonstrate, and teach back instruction, to be achieved by 12/19/23. PT Orthopedic Condition No Demonstrate understanding of education Description: Patient and/or caregiver will understand educational instruction to be achieved by 12/19/23. PT Learning Assessment No Interventions Intervention Associated Problem/Goal Status Variance Visit Notes Medication Education Description: Evaluate/instruct patient/caregiver on obtaining, storing, identifying and administering ordered medications as well as keeping accurate medication list in the home and adhereing to medication schedule Problem:Medication Education Goal:Patient/caregive r will demonstrate ability to obtain, store, identify and administer ordered medications, keep accurate medication list in home, and adhere to medication schedule Completed Patient instructed on adhering to medication schedule. Risk of Sepsis Description: Patient is at risk for sepsis. Monitor closely for s/s of sepsis. Problem:Sepsis Goal:Patient/caregive r will be able to identify and report symptoms of sepsis Completed SPO2 Description: Notify Dr. Garcia if pulse ox is <92% at rest. Problem:Physician Specific Parameters Goal:Patient to maintain parameters within physician-specified ranges throughout certification period Completed Instruct on individual fall risk factors and strategies to prevent falls and injuries caused by falls. Problem:Risk for Falls Goal:Manage Risk for falls Completed PT: Patient instructed on Eliminating Environmental Hazards: Keep pathways clear, Keep pets out of pathways and Wear supportive shoes or non-skid socks Managing Impaired Functional Mobility: Use assistive device(s): front wheeled walker and single point cane Managing Pain Instruct on pain and instruct on strategies to control pain Problem:Pain Goal:Manage Pain Completed patient instructed on techniques to control pain including Pharmacological measures and Non-Pharmacological measures; rest, positioning/elevation, use of DME/assistive devices and use of thermal modalities, apply ice to affected area for the following prescribed frequency: after completing HEP and as needed. Define patient s appetite/hydration status and implement strategies to improve compliance with prescribed diet and/or healthy nutrition. Problem:Nutrition/Hyd ration Goal:Manage Nutrition/Hydration Completed instructed patient on implementing strategies to comply with healthy nutrition and adequate hydration Antiplatelet- educated on high risk medication Problem:High Risk Medications Goal:Patient/caregive r will teach back high risk medication side effect and precaution education Completed patient educated on taking medication(s) as prescribed by provider. Do not stop medication or alter doses without speaking with your provider. Discuss medication effectiveness or side effect concerns with your provider and home care team. Discuss all medications you are taking, even [id number] medicines, with your provider and pharmacist since many drugs can interact with antiplatelet medications. If you forget to take a dose, DO NOT take a double dose. Take the missed dose as soon as possible on the same day. DO NOT take a double dose the next day to make up for the missed dose. Watch for signs of abnormal or excessive bleeding and bruising (refer to Bleeding Precautions education). Call your health care provider right away if you suspect something is wrong. Instruct on ongoing discharge plan Problem:Discharge Goal:Manage discharge planning Completed Ongoing Discharge plan: Discharge plan discussed with patient including frequency and duration for home PT and plan for transition to: outpatient therapy. Instruct on importance of follow-up appts and continued monitoring with medical provider &/or chronic care clinic Problem:Discharge Goal:Manage discharge planning Completed Education provided on importance of compliance with follow-up appointment(s). Patient requested to do outpatient PT at [facility] in [place]. Will assist to schedule this at the next visit. Physical Therapy Therapeutic Exercises Problem:PT Impaired muscle performance and/or ROM Goal:Improved Muscle Performance and/or ROM Completed Instructed patient/caregiver on strengthening/range of motion, exercises with supine: ankle pumps, quad sets, glute sets, SAQ, heel slides, SLR, and hip abduction x10 reps RLE. Verbal cues provided for proper technique and pacing exercises. Instructed patient to perform exercises slowly for maximum benefit. Completed additional AAROM for heel slides x10 reps. Completed seated RLE heel slides and LAQ x10 reps each. Instructed patient and caregiver to perform HEP 2-3 x daily in order to continue to improve ROM and strength for functional mobility. Physical Therapy Transfer Training Problem:PT Impaired mobility Goal:Improved Transfers Completed Transfer training and instruction to patient on safe transfers to and from bed and chair with supervision and verbal cues for walker placement. Recommended the following adaptive equipment/durable medical equipment: walker or cane. Physical Therapy Gait Training Problem:PT Impaired gait Goal:Improved Gait Completed Gait training and instruction to patient on safe ambulation with front wheeled walker for 150 feet with supervision, with verbal cues for corrections of gait deviations including R knee flexion with swing phase then heel strike. Gait training and instruction to patient on safe ambulation with single point cane for 100 feet with stand by assist, with verbal cues for corrections of gait deviations including sequencing. Recommended to ease to use SPC during the day and walker in the morning and evenings as she fatigues. Patient verbalized understanding of instructions. Physical Therapy Balance Training Problem:PT Impaired balance Goal:Improved Balance Completed Patient instructed in standing HEP this date with BUE support. Standing: B heel raises, R marching, R knee flexion x10 reps bilaterally. Verbal, visual, and tactile cues provided for proper technique and pacing for activity exercises this date. Instructed patient in upright posture throughout all exercises. Completed dynamic standing balance with amb 10 ft each with side stepping. Required standby assist for balance and verbal cues for sequencing. Instruct on orthopedic precautions and weight bearing restrictions Description: Orthopedic precautions including right total knee: no knee flexed over pillow at rest and no twisting. Weight bearing restrictions include: WBAT of involved extremity. Problem:PT Orthopedic Condition Goal:Manage Orthopedic Condition Completed patient instructed on orthopedic precautions and weight bearing restrictions. Instruct on management of edema Problem:PT Orthopedic Condition Goal:Manage Orthopedic Condition Completed Instruct patient on management of edema including elevation of RLE above the level of the heart and ice. Instruct on self-management of post surgical and/or non-surgical orthopedic intervention Problem:PT Orthopedic Condition Goal:Manage Orthopedic Condition Completed patient instructed on managagement of orthopedic condition, staying well hydrated, eating foods with high protein, signs and symptoms of infection, instructed on when to call provider and instructed on when to call 911. Instruct and educate on knowledge deficits Problem:PT Learning Assessment Goal:Demonstrate understanding of education Completed patient verbalize and/or demonstrate understanding of physical therapy education including orthopedic condition management, pain management, fall prevention strategies, home safety, infection control precautions and home exercise program. Education methods include: verbal cues and teach back. Further education required to improve knowledge and compliance with fall prevention strategies, infection control precautions, functional activity and home exercise program. [facility] Visit Details Visit Type -PT ROUTINE Discipline -Physical Therapy Problems Problem Description Start Date Status Goals Interve ntions Medication Education Disciplines: Skilled Services 12/05/2023 Active 1 goal linked to scheduled/document ed intervention 1 goal intervention scheduled/document ed in this visit Sepsis Disciplines: Skilled Services 12/05/2023 Active 1 goal linked to scheduled/document ed intervention 1 goal intervention scheduled/document ed in this visit Physician Specific Parameters Disciplines: Skilled Services 12/05/2023 Active 1 goal linked to scheduled/document ed intervention 1 goal intervention scheduled/document ed in this visit Risk for Falls Disciplines: Skilled Services 12/05/2023 Active 1 goal linked to scheduled/document ed intervention 1 goal intervention scheduled/document ed in this visit Pain Disciplines: Skilled Services 12/05/2023 Active 1 goal linked to scheduled/document ed intervention 1 goal intervention scheduled/document ed in this visit High Risk Medications Disciplines: Skilled Services 12/05/2023 Active 1 goal linked to scheduled/document ed intervention 1 goal intervention scheduled/document ed in this visit Discharge Disciplines: Skilled Services 12/05/2023 Active 1 goal linked to scheduled/document ed intervention 2 goal interventions scheduled/document ed in this visit PT Impaired muscle performance and/or ROM Disciplines: PT 12/05/2023 Active 1 goal linked to scheduled/document ed intervention 1 goal intervention scheduled/document ed in this visit PT Impaired mobility Disciplines: PT 12/05/2023 Active 1 goal linked to scheduled/document ed intervention 1 goal intervention scheduled/document ed in this visit PT Impaired gait Disciplines: PT 12/05/2023 Active 1 goal linked to scheduled/document ed intervention 1 goal intervention scheduled/document ed in this visit PT Impaired balance Disciplines: PT 12/05/2023 Active 1 goal linked to scheduled/document ed intervention 1 goal intervention scheduled/document ed in this visit PT Orthopedic Condition Disciplines: PT 12/05/2023 Active 1 goal linked to scheduled/document ed intervention 3 goal interventions scheduled/document ed in this visit PT Learning Assessment Disciplines: PT 12/05/2023 Active 1 goal linked to scheduled/document ed intervention 1 goal intervention scheduled/document ed in this visit Goals Goal Associated Problem Outcome Goal Met? Visit Notes Patient/caregiver will demonstrate ability to obtain, store, identify and administer ordered medications, keep accurate medication list in home, and adhere to medication schedule Description: Patient/caregiver will demonstrate ability to obtain, store, identify and administer ordered medications, keep accurate medication list in home, and adhere to medication schedule by 02/02/24. Medication Education No Patient/caregiver will be able to identify and report symptoms of sepsis Description: Patient/caregiver will be able to identify signs/symptoms of sepsis infection and will verbalize actions to take if suspected by 02/02/24. Sepsis No Patient to maintain parameters within physician-specified ranges throughout certification period Physician Specific Parameters No Manage Risk for falls Description: Patient/caregiver will verbalize knowledge of individualized fall prevention strategies by 02/02/24. Risk for Falls No Manage Pain Description: Patient/caregiver will verbalize knowledge and understanding of appropriate techniques to control pain, including pain medication and non-pharmacological techniques. Patient will verbalize or demonstrate an acceptable level of pain as evidenced by a pain score of 0/10 and improvement in ability to perform activities of daily living to be achieved by 02/02/24. Pain No Patient/caregiver will teach back high risk medication side effect and precaution education Description: STG Patient/caregiver will verbalize understanding of high risk medication side effects and precautions to be achieved by 12/19/23. LTG Patient/caregiver will continue to verbalize understanding of high risk medication side effects and precautions throughout certification period. High Risk Medications No Manage discharge planning Description: Patient/caregiver will verbalize understanding of ongoing discharge plan provided related to disease management, arrangements for outpatient and/or community services, obtaining medications, supplies, and DME, as needed throughout certification period. Discharge No Improved Muscle Performance and/or ROM Description: STG: Patient will demonstrate improved right knee active range of motion to 5-95 degrees, to meet functional goals, to be achieved by 12/19/23. LTG: Patient and/or caregiver will verbalize/demonstrate independence with home exercise program, to improve functional mobility, to be achieved by 02/02/24. PT Impaired muscle performance and/or ROM No Improved Transfers Description: STG: Patient will demonstrate safe transfers to/from bed, chair and toilet independently, to be achieved by 12/19/23. PT Impaired mobility No Improved Gait Description: STG: Patient will demonstrate improved gait ability as evidenced by ambulation 150 feet with front wheeled walker or cane independently with AD, in order to access all areas of house and driveway, to be achieved by 12/19/23. PT Impaired gait No Improved Balance Description: STG: Patient will demonstrate improved standing balance to meet functional goals as evidenced by TUG score of 12, to be achieved by 12/19/23. PT Impaired balance No Manage Orthopedic Condition Description: Improve patient and/or caregiver understanding of post surgical and/or non-surgical orthopedic intervention management as evidenced by patient and/or caregiver able to verbalize, demonstrate, and teach back instruction, to be achieved by 12/19/23. PT Orthopedic Condition No Demonstrate understanding of education Description: Patient and/or caregiver will understand educational instruction to be achieved by 12/19/23. PT Learning Assessment No Interventions Intervention Associated Problem/Goal Status Variance Visit Notes Medication Education Description: Evaluate/instruct patient/caregiver on obtaining, storing, identifying and administering ordered medications as well as keeping accurate medication list in the home and adhereing to medication schedule Problem:Medication Education Goal:Patient/caregive r will demonstrate ability to obtain, store, identify and administer ordered medications, keep accurate medication list in home, and adhere to medication schedule Completed Patient instructed on adhering to medication schedule. Risk of Sepsis Description: Patient is at risk for sepsis. Monitor closely for s/s of sepsis. Problem:Sepsis Goal:Patient/caregive r will be able to identify and report symptoms of sepsis Completed SPO2 Description: Notify Dr. Garcia if pulse ox is <92% at rest. Problem:Physician Specific Parameters Goal:Patient to maintain parameters within physician-specified ranges throughout certification period Completed Instruct on individual fall risk factors and strategies to prevent falls and injuries caused by falls. Problem:Risk for Falls Goal:Manage Risk for falls Completed PT: Patient instructed on Eliminating Environmental Hazards: Keep pathways clear and Wear supportive shoes or non-skid socks Managing Impaired Functional Mobility: Use assistive device(s): single point cane Managing Pain Instruct on pain and instruct on strategies to control pain Problem:Pain Goal:Manage Pain Completed patient instructed on techniques to control pain including Pharmacological measures and Non-Pharmacological measures; rest, positioning/elevation, use of DME/assistive devices and use of thermal modalities, apply ice to affected area for the following prescribed frequency: PRN. Antiplatelet- educated on high risk medication Problem:High Risk Medications Goal:Patient/caregive r will teach back high risk medication side effect and precaution education Completed patient educated on taking medication(s) as prescribed by provider. Do not stop medication or alter doses without speaking with your provider. Discuss medication effectiveness or side effect concerns with your provider and home care team. Discuss all medications you are taking, even [id number] medicines, with your provider and pharmacist since many drugs can interact with antiplatelet medications. If you forget to take a dose, DO NOT take a double dose. Take the missed dose as soon as possible on the same day. DO NOT take a double dose the next day to make up for the missed dose. Watch for signs of abnormal or excessive bleeding and bruising (refer to Bleeding Precautions education). Call your health care provider right away if you suspect something is wrong. Instruct on ongoing discharge plan Problem:Discharge Goal:Manage discharge planning Completed Ongoing Discharge plan: Discharge plan discussed with patient including frequency and duration for home PT and plan for transition to: outpatient therapy. Instruct on importance of follow-up appts and continued monitoring with medical provider &/or chronic care clinic Problem:Discharge Goal:Manage discharge planning Completed Education provided on importance of compliance with follow-up appointment(s). Physical Therapy Therapeutic Exercises Problem:PT Impaired muscle performance and/or ROM Goal:Improved Muscle Performance and/or ROM Completed Instructed patient/caregiver on strengthening/range of motion, exercises with supine: ankle pumps, quad sets, glute sets, SAQ, heel slides, SLR, and hip abduction x12 reps RLE. Verbal cues provided for proper technique and pacing exercises. Instructed patient to perform exercises slowly for maximum benefit. Completed additional AAROM for heel slides x10 reps. Completed seated RLE heel slides and LAQ x12 reps each. Instructed patient and caregiver to perform HEP 2-3 x daily in order to continue to improve ROM and strength for functional mobility. Physical Therapy Transfer Training Problem:PT Impaired mobility Goal:Improved Transfers Completed Transfer training and instruction to patient on safe transfers to and from bed and chair with independent with SPC. Physical Therapy Gait Training Problem:PT Impaired gait Goal:Improved Gait Completed Gait training and instruction to patient on safe ambulation with single point cane for 150 feet with supervision, with verbal cues for corrections of gait deviations including even stride length and pacing self. Physical Therapy Balance Training Problem:PT Impaired balance Goal:Improved Balance Completed Patient instructed in standing HEP this date with BUE support. Standing: heel raises, B marching, R knee flexion x12 reps bilaterally. Verbal, visual, and tactile cues provided for proper technique and pacing for activity exercises this date. Instructed patient in upright posture throughout all exercises. Completed dynamic standing balance with amb 20 ft each with side stepping. Required supervision assist for balance. Instruct on orthopedic precautions and weight bearing restrictions Description: Orthopedic precautions including right total knee: no knee flexed over pillow at rest and no twisting. Weight bearing restrictions include: WBAT of involved extremity. Problem:PT Orthopedic Condition Goal:Manage Orthopedic Condition Completed patient instructed on orthopedic precautions and weight bearing restrictions. Instruct on management of edema Problem:PT Orthopedic Condition Goal:Manage Orthopedic Condition Completed Instruct patient on management of edema including elevation of RLE above the level of the heart and ice. Instruct on self-management of post surgical and/or non-surgical orthopedic intervention Problem:PT Orthopedic Condition Goal:Manage Orthopedic Condition Completed patient instructed on staying well hydrated, eating foods with high protein and instructed on when to call provider. Instruct and educate on knowledge deficits Problem:PT Learning Assessment Goal:Demonstrate understanding of education Completed patient verbalize and/or demonstrate understanding of physical therapy education including orthopedic condition management, weight bearing precautions, pain management, fall prevention strategies, home safety, functional activity and home exercise program. Education methods include: verbal cues and teach back. Further education required to improve knowledge and compliance with home exercise program. [facility] Visit Details Visit Type -PT AGENCY LIZETH MELARA Discipline -Physical Therapy Problems Problem Description Start Date Status Goals Interve ntions Medication Education Disciplines: Skilled Services 12/05/2023 Resolved on 12/17/2023 1 goal linked to scheduled/docume nted intervention 1 goal intervention scheduled/documen jluis in this visit Sepsis Disciplines: Skilled Services 12/05/2023 Resolved on 12/17/2023 1 goal linked to scheduled/docume nted intervention 1 goal intervention scheduled/documen jluis in this visit Physician Specific Parameters Disciplines: Skilled Services 12/05/2023 Resolved on 12/17/2023 1 goal linked to scheduled/docume nted intervention 1 goal intervention scheduled/documen jluis in this visit Risk for Falls Disciplines: Skilled Services 12/05/2023 Resolved on 12/17/2023 1 goal linked to scheduled/docume nted intervention 1 goal intervention scheduled/documen jluis in this visit Pain Disciplines: Skilled Services 12/05/2023 Resolved on 12/17/2023 1 goal linked to scheduled/docume nted intervention 1 goal intervention scheduled/documen jluis in this visit Nutrition/Hydration Disciplines: Skilled Services 12/05/2023 Resolved on 12/17/2023 1 goal linked to scheduled/docume nted intervention 1 goal intervention scheduled/documen jluis in this visit High Risk Medications Disciplines: Skilled Services 12/05/2023 Resolved on 12/17/2023 1 goal linked to scheduled/docume nted intervention 1 goal intervention scheduled/documen jluis in this visit Discharge Disciplines: Skilled Services 12/05/2023 Resolved on 12/17/2023 1 goal linked to scheduled/docume nted intervention 2 goal interventions scheduled/documen jluis in this visit PT Impaired muscle performance and/or ROM Disciplines: PT 12/05/2023 Resolved on 12/17/2023 1 goal linked to scheduled/docume nted intervention 1 goal intervention scheduled/documen jluis in this visit PT Impaired mobility Disciplines: PT 12/05/2023 Resolved on 12/17/2023 1 goal linked to scheduled/docume nted intervention 1 goal intervention scheduled/documen jluis in this visit PT Impaired gait Disciplines: PT 12/05/2023 Resolved on 12/17/2023 1 goal linked to scheduled/docume nted intervention 1 goal intervention scheduled/documen jluis in this visit PT Impaired balance Disciplines: PT 12/05/2023 Resolved on 12/17/2023 1 goal linked to scheduled/docume nted intervention PT Orthopedic Condition Disciplines: PT 12/05/2023 Resolved on 12/17/2023 1 goal linked to scheduled/docume nted intervention 3 goal interventions scheduled/documen jluis in this visit PT Learning Assessment Disciplines: PT 12/05/2023 Resolved on 12/17/2023 1 goal linked to scheduled/docume nted intervention 1 goal intervention scheduled/documen jluis in this visit PT Cardiovascular Disease Disciplines: PT 12/05/2023 Resolved on 12/17/2023 1 goal linked to scheduled/docume nted intervention 1 goal intervention scheduled/documen jluis in this visit PT Pulmonary Disease Disciplines: PT 12/05/2023 Resolved on 12/17/2023 1 goal linked to scheduled/docume nted intervention 1 goal intervention scheduled/documen jluis in this visit Goals Goal Associated Problem Outcome Goal Met? Visit Notes Patient/caregiver will demonstrate ability to obtain, store, identify and administer ordered medications, keep accurate medication list in home, and adhere to medication schedule Description: Patient/caregiver will demonstrate ability to obtain, store, identify and administer ordered medications, keep accurate medication list in home, and adhere to medication schedule by 02/02/24. Medication Education Completed Yes Patient/caregiver will be able to identify and report symptoms of sepsis Description: Patient/caregiver will be able to identify signs/symptoms of sepsis infection and will verbalize actions to take if suspected by 02/02/24. Sepsis Completed Yes Patient to maintain parameters within physician-specified ranges throughout certification period Physician Specific Parameters Completed Yes Manage Risk for falls Description: Patient/caregiver will verbalize knowledge of individualized fall prevention strategies by 02/02/24. Risk for Falls Completed Yes Manage Pain Description: Patient/caregiver will verbalize knowledge and understanding of appropriate techniques to control pain, including pain medication and non-pharmacological techniques. Patient will verbalize or demonstrate an acceptable level of pain as evidenced by a pain score of 0/10 and improvement in ability to perform activities of daily living to be achieved by 02/02/24. Pain Completed Yes Manage Nutrition/Hydration Description: Patient/caregiver will verbalize/demonstrate knowledge of prescribed diet and/or healthy nutrition to be achieved by 02/02/24, Nutrition/Hydration Completed Yes Patient/caregiver will teach back high risk medication side effect and precaution education Description: STG Patient/caregiver will verbalize understanding of high risk medication side effects and precautions to be achieved by 12/19/23. LTG Patient/caregiver will continue to verbalize understanding of high risk medication side effects and precautions throughout certification period. High Risk Medications Completed Yes Manage discharge planning Description: Patient/caregiver will verbalize understanding of ongoing discharge plan provided related to disease management, arrangements for outpatient and/or community services, obtaining medications, supplies, and DME, as needed throughout certification period. Discharge Completed Yes Improved Muscle Performance and/or ROM Description: STG: Patient will demonstrate improved right knee active range of motion to 5-95 degrees, to meet functional goals, to be achieved by 12/19/23. LTG: Patient and/or caregiver will verbalize/demonstrate independence with home exercise program, to improve functional mobility, to be achieved by 02/02/24. PT Impaired muscle performance and/or ROM Completed Yes Improved Transfers Description: STG: Patient will demonstrate safe transfers to/from bed, chair and toilet independently, to be achieved by 12/19/23. PT Impaired mobility Completed Yes Improved Gait Description: STG: Patient will demonstrate improved gait ability as evidenced by ambulation 150 feet with front wheeled walker or cane independently with AD, in order to access all areas of house and driveway, to be achieved by 12/19/23. PT Impaired gait Completed Yes Improved Balance Description: STG: Patient will demonstrate improved standing balance to meet functional goals as evidenced by TUG score of 12, to be achieved by 12/19/23. PT Impaired balance Appropriate For Discharge Yes Manage Orthopedic Condition Description: Improve patient and/or caregiver understanding of post surgical and/or non-surgical orthopedic intervention management as evidenced by patient and/or caregiver able to verbalize, demonstrate, and teach back instruction, to be achieved by 12/19/23. PT Orthopedic Condition Completed Yes Demonstrate understanding of education Description: Patient and/or caregiver will understand educational instruction to be achieved by 12/19/23. PT Learning Assessment Completed Yes Manage Secondary Cardiovascular disease Description: Improve patient and/or caregiver understanding of secondary cardiovascular disease management as evidenced by patient and/or caregiver able to verbalize, demonstrate, and teach back instruction, to be achieved by 12/19/23. PT Cardiovascular Disease Completed Yes Manage Secondary Pulmonary Disease Description: Improve patient and/or caregiver understanding of secondary pulmonary disease management as evidenced by patient and/or caregiver able to verbalize, demonstrate, and teach back instruction, to be achieved by 12/19/23. PT Pulmonary Disease Completed Yes Interventions Intervention Associated Problem/Goal Status Variance Visit Notes Medication Education Description: Evaluate/instruct patient/caregiver on obtaining, storing, identifying and administering ordered medications as well as keeping accurate medication list in the home and adhereing to medication schedule Problem:Medication Education Goal:Patient/caregive r will demonstrate ability to obtain, store, identify and administer ordered medications, keep accurate medication list in home, and adhere to medication schedule Completed Patient instructed on adhering to medication schedule. Risk of Sepsis Description: Patient is at risk for sepsis. Monitor closely for s/s of sepsis. Problem:Sepsis Goal:Patient/caregive r will be able to identify and report symptoms of sepsis Completed SPO2 Description: Notify Dr. Garcia if pulse ox is <92% at rest. Problem:Physician Specific Parameters Goal:Patient to maintain parameters within physician-specified ranges throughout certification period Completed Instruct on individual fall risk factors and strategies to prevent falls and injuries caused by falls. Problem:Risk for Falls Goal:Manage Risk for falls Completed PT: Patient instructed on Eliminating Environmental Hazards: Keep pathways clear and Wear supportive shoes or non-skid socks Managing Pain Instruct on pain and instruct on strategies to control pain Problem:Pain Goal:Manage Pain Completed patient instructed on techniques to control pain including Pharmacological measures and Non-Pharmacological measures; rest, positioning/elevation, use of DME/assistive devices and use of thermal modalities, apply ice to affected area for the following prescribed frequency: PRN. Define patient s appetite/hydration status and implement strategies to improve compliance with prescribed diet and/or healthy nutrition. Problem:Nutrition/Hyd ration Goal:Manage Nutrition/Hydration Completed instructed patient on implementing strategies to comply with healthy nutrition and adequate hydration Antiplatelet- educated on high risk medication Problem:High Risk Medications Goal:Patient/caregive r will teach back high risk medication side effect and precaution education Completed patient educated on taking medication(s) as prescribed by provider. Do not stop medication or alter doses without speaking with your provider. Discuss medication effectiveness or side effect concerns with your provider and home care team. Discuss all medications you are taking, even rlfl-[id number]-[id number] medicines, with your provider and pharmacist since many drugs can interact with antiplatelet medications. If you forget to take a dose, DO NOT take a double dose. Take the missed dose as soon as possible on the same day. DO NOT take a double dose the next day to make up for the missed dose. Watch for signs of abnormal or excessive bleeding and bruising (refer to Bleeding Precautions education). Call your health care provider right away if you suspect something is wrong. Instruct on final discharge plan and deliver discharge instructions Problem:Discharge Goal:Manage discharge planning Completed Delivered Discharge plan: Discharge plan discussed with patient for plan for transition to: outpatient therapy Instruct on importance of follow-up appts and continued monitoring with medical provider &/or chronic care clinic Problem:Discharge Goal:Manage discharge planning Completed Education provided on importance of compliance with follow-up appointment(s). Physical Therapy Therapeutic Exercises Problem:PT Impaired muscle performance and/or ROM Goal:Improved Muscle Performance and/or ROM Completed Developed, implemented, and instructed patient/caregiver on strengthening/range of motion, exercises with supine: ankle pumps, quad sets, glute sets, SAQ, heel slides, SLR, and hip abduction x15 reps RLE. Verbal cues provided for proper technique and pacing exercises. Instructed patient to perform exercises slowly for maximum benefit. Completed AAROM for heel slides x5 additional reps this date. Completed seated LAQ and heels slides x15 reps. Instructed patient and caregiver to perform HEP 2-3 x daily in order to continue to improve ROM and strength for functional mobility. Patient verbalized understanding and compliance. Physical Therapy Transfer Training Problem:PT Impaired mobility Goal:Improved Transfers Completed Transfer training and instruction to patient on safe transfers to and from bed and chair with independent. Physical Therapy Gait Training Problem:PT Impaired gait Goal:Improved Gait Completed Gait training and instruction to patient on safe ambulation with single point cane for 200 feet with independent. Gait training and instruction to patient on safe ambulation with no device for 50 feet with independent. Instruct on orthopedic precautions and weight bearing restrictions Description: Orthopedic precautions including right total knee: no knee flexed over pillow at rest and no twisting. Weight bearing restrictions include: WBAT of involved extremity. Problem:PT Orthopedic Condition Goal:Manage Orthopedic Condition Completed patient instructed on orthopedic precautions and weight bearing restrictions. Instruct on management of edema Problem:PT Orthopedic Condition Goal:Manage Orthopedic Condition Completed Instruct patient on management of edema including elevation of RLE above the level of the heart and ice. Instruct on self-management of post surgical and/or non-surgical orthopedic intervention Problem:PT Orthopedic Condition Goal:Manage Orthopedic Condition Completed patient instructed on managagement of orthopedic condition, staying well hydrated, signs and symptoms of infection and instructed on when to call provider. Instruct and educate on knowledge deficits Problem:PT Learning Assessment Goal:Demonstrate understanding of education Completed patient verbalize and/or demonstrate understanding of physical therapy education including surgical precautions, pain management, fall prevention strategies, home safety, functional activity and home exercise program. Education methods include: verbal cues and teach back. Instruct on signs, symptoms, and management of secondary cardiovascular disease Problem:PT Cardiovascular Disease Goal:Manage Secondary Cardiovascular disease Completed Instructed patient on exercise and activity guidelines. Instruct on signs, symptoms, and management of secondary pulmonary disease Problem:PT Pulmonary Disease Goal:Manage Secondary Pulmonary Disease Completed patient instructed on exercise and activity guidelines. [facility] Diagnostic Procedure Only (Routine) - Pending Review Specialty Diagnoses / Procedures Referred By Jaimeac t Referred To Contact XR IMAGING Diagnoses Status post total right knee replacement Acute pain of right knee Procedures XR KNEE POST OP 3V AP/LAT/MERCHANT RIGHT RADIOLOGIC EXAMINATION KNEE 3 VIEWS Vidal Schmitt PA-C [address] [place] [address] Xr Imaging Referral ID Status Reason Start Date Expiration Date Visits Requested Visits Authorized [id number] Pending Review Auto-Generat ed Referral 04/28/2022 05/28/2023 [facility] Diagnostic Procedure Only (Routine) - Authorized Specialty Diagnoses / Procedures Referred By Isma boyd Referred To Contact MOLECULAR & FUNCTIONAL IMAGING Diagnoses Pain due to internal orthopedic prosthetic devices, implants and grafts, initial encounter (HCC) Pain due to total right knee replacement, initial encounter (HCC) Procedures NM BONE 3 PHASE BONE &/JOINT IMAGING 3 PHASE STUDY Vidal Schmitt PA-C [address] [place] [address] Molecular & Functional Imaging [address] [place] [address] Referral ID Status Reason Start Date Expiration Date Visits Requested Visits Authorized [id number] Authorized Auto-Generat ed Referral 05/01/2022 05/31/2023 [facility] Diagnostic Procedure Only (Routine) - Authorized Specialty Diagnoses / Procedures Referred By Jaimeac t Referred To Contact XR IMAGING Diagnoses Right knee pain, unspecified chronicity Procedures XR KNEE POST OP 3V AP/LAT/MERCHANT RIGHT RADIOLOGIC EXAMINATION KNEE 3 VIEWS Vidal Schmitt PA-C [address] [place] [address] Xr Imaging Referral ID Status Reason Start Date Expiration Date Visits Requested Visits Authorized [id number] Authorized Auto-Generat ed Referral 06/20/2023 1 1 [facility] for referral (narrative)* Diagnostic Procedure Only (Routine) - Pending Review Specialty Diagnoses / Procedures Referred By Contac t Referred To Contact MOLECULAR & FUNCTIONAL IMAGING Diagnoses Pain due to internal orthopedic prosthetic devices, implants and grafts, initial encounter (HCC) Procedures NM BONE 3 PHASE BONE &/JOINT IMAGING 3 PHASE STUDY Vidal Schmitt PA-C [address] [place] [address] Molecular & Functional Imaging [address] [id number] Referral ID Status Reason Start Date Expiration Date Visits Requested Visits Authorized [id number] Pending Review Auto-Generat ed Referral 09/04/2023 10/03/2024 1 1 [facility] for referral (narrative)* Diagnostic Procedure Only (Routine) - Closed Specialty Diagnoses / Procedures Referred By Contac t Referred To Contact MOLECULAR & FUNCTIONAL IMAGING Diagnoses Pain due to internal orthopedic prosthetic devices, implants and grafts, initial encounter (HCC) Procedures NM BONE 3 PHASE BONE &/JOINT IMAGING 3 PHASE STUDY Vidal Schmitt PA-C [address] [place] [address] Molecular & Functional Imaging [address] [id number] Referral ID Status Reason Start Date Expiration Date V isits Requested Visits Authorized [id number] Closed Auto-Generate d Referral 09/04/2023 10/03/2024 1 1 [facility] for referral (narrative)* Outpatient Procedure (Routine) - Pending Review Specialty Diagnoses / Procedures Referred By Contac t Referred To Contact [facility] Diagnoses Pre-op evaluation Procedures ECG COMPLETE ECG ROUTINE ECG W/LEAST 12 LDS W/I&R Lalitha Thomas PA [address] [place] [address] [facility] [place] [address] [place] [address] Referral ID Status Reason Start Date Expiration Date Visits Requested Visits Authorized [id number] Pending Review Auto-Generat ed Referral 11/12/2023 11/11/2024 1 1 [facility] for referral (narrative)* Diagnostic Procedure Only (Routine) - Closed Specialty Diagnoses / Procedures Referred By Contac t Referred To Contact XR IMAGING Diagnoses Right knee pain, unspecified chronicity Procedures XR KNEE POST OP 3V AP/LAT/MERCHANT RIGHT RADIOLOGIC EXAMINATION KNEE 3 VIEWS Royce Peterson PA-C [address] [place] [address] Xr Imaging [facility] [address] Referral ID Status Reason Start Date Expiration Date V isits Requested Visits Authorized [id number] Closed Auto-Generate d Referral 12/04/2023 01/02/2025 1 1 [facility] referral (narrative)* Diagnostic Procedure Only (Routine) - Closed Specialty Diagnoses / Procedures Referred By Contac t Referred To Contact XR IMAGING Diagnoses Right knee pain, unspecified chronicity Procedures XR KNEE POST OP 3V AP/LAT/MERCHANT RIGHT RADIOLOGIC EXAMINATION KNEE 3 VIEWS Vidal Schmitt PA-C [address] [place] [address] [place] [address] Referral ID Status Reason Start Date Expiration Date V isits Requested Visits Authorized [id number] Closed Auto-Generate d Referral 08/31/2023 09/29/2024 1 1 [facility] for referral (narrative)* Diagnostic Procedure Only (Routine) - Closed Specialty Diagnoses / Procedures Referred By Contac t Referred To Contact XR IMAGING Diagnoses S/P revision of total knee, right Procedures XR KNEE POST OP 3V AP/LAT/MERCHANT RIGHT RADIOLOGIC EXAMINATION KNEE 3 VIEWS Vidal Schmitt PA-C [address] [place] [address] [place] [address] Referral ID Status Reason Start Date Expiration Date V isits Requested Visits Authorized [id number] Closed Auto-Generate d Referral 02/24/2023 03/25/2024 1 1 [facility] referral (narrative)* Diagnostic Procedure Only (Routine) - Closed Specialty Diagnoses / Procedures Referred By Contac t Referred To Contact XR IMAGING Diagnoses Right knee pain, unspecified chronicity Procedures XR KNEE POST OP 3V AP/LAT/MERCHANT RIGHT RADIOLOGIC EXAMINATION KNEE 3 VIEWS Vidal Schmitt PA-C [address] [place] [address] [place] [address] Referral ID Status Reason Start Date Expiration Date V isits Requested Visits Authorized [id number] Closed Auto-Generate d Referral 05/21/2022 06/20/2023 1 1 [facility] for referral (narrative)[facility] for [facility] Narrative* Diagnostic Procedure Only (Routine) - Closed Specialty Diagnoses / Procedures Referred By Contac t Referred To Contact MOLECULAR & FUNCTIONAL IMAGING Diagnoses Pain due to internal orthopedic prosthetic devices, implants and grafts, initial encounter (HCC) Procedures NM BONE 3 PHASE BONE &/JOINT IMAGING 3 PHASE STUDY Vidal Schmitt PA-C [address] [place] [address] Molecular [facility] Functional Imaging [address] [place] [address] Referral ID Status Reason Start Date Expiration Date V isits Requested Visits Authorized [id number] Closed Auto-Generate d Referral 09/04/2023 10/03/2024 1 1 [facility] visit Narrative* Diagnostic Procedure Only (Routine) - Closed Specialty Diagnoses / Procedures Referred By Contac t Referred To Contact XR IMAGING Diagnoses Right knee pain, unspecified chronicity Procedures XR KNEE POST OP 3V AP/LAT/MERCHANT RIGHT RADIOLOGIC EXAMINATION KNEE 3 VIEWS Royce Peterson PA-C [address] [place] [address] [place] [address] Referral ID Status Reason Start Date Expiration Date V isits Requested Visits Authorized [id number] Closed Auto-Generate d Referral 12/04/2023 01/02/2025 1 1 [facility] visit Narrative* Diagnostic Procedure Only (Routine) - Closed Specialty Diagnoses / Procedures Referred By Contac t Referred To Contact XR IMAGING Diagnoses Right knee pain, unspecified chronicity Procedures XR KNEE POST OP 3V AP/LAT/MERCHANT RIGHT RADIOLOGIC EXAMINATION KNEE 3 VIEWS Vidal Schmitt PA-C [address] [place] [address] [place] [address] Referral ID Status Reason Start Date Expiration Date V isits Requested Visits Authorized [id number] Closed Auto-Generate d Referral 08/31/2023 09/29/2024 1 1 [facility] visit Narrative* Diagnostic Procedure Only (Routine) - Closed Specialty Diagnoses / Procedures Referred By Contac t Referred To Contact XR IMAGING Diagnoses S/P revision of total knee, right Procedures XR KNEE POST OP 3V AP/LAT/MERCHANT RIGHT RADIOLOGIC EXAMINATION KNEE 3 VIEWS Vidal Schmitt PA-C [address] [place] [address] [place] [address] Referral ID Status Reason Start Date Expiration Date V isits Requested Visits Authorized [id number] Closed Auto-Generate d Referral 02/24/2023 03/25/2024 1 1 [facility] for visit Narrative* Diagnostic Procedure Only (Routine) - Closed Specialty Diagnoses / Procedures Referred By Contac t Referred To Contact XR IMAGING Diagnoses Right knee pain, unspecified chronicity Procedures XR KNEE POST OP 3V AP/LAT/MERCHANT RIGHT RADIOLOGIC EXAMINATION KNEE 3 VIEWS Vidal Schmitt PA-C [address] [place] [address] [place] [address] Referral ID Status Reason Start Date Expiration Date V isits Requested Visits Authorized [id number] Closed Auto-Generate d Referral 05/21/2022 06/20/2023 [facility] Diagnostic Procedure Only (Routine) - Closed Specialty Diagnoses / Procedures Referred By Isma t Referred To Contact XR IMAGING Diagnoses Aftercare following right knee joint replacement surgery Procedures XR KNEE POST OP 3V AP/LAT/MERCHANT RIGHT RADIOLOGIC EXAMINATION KNEE 3 VIEWS Vidal Schmitt PA-C [address] [place] [address] Phone: tel: fax: [place] [address] Referral ID Status Reason Start Date Expiration Date V isits Requested Visits Authorized [id number] Closed Auto-Generate d Referral 11/14/2024 12/14/2025 1 1 [facility] Summary Purpose Family History No Family History Records FoundUnknown Family Member Name Dates Details Colon Cancer Comments:Mother. Status:Active Heart Disease Comments:Mother. Maternal Gr andmother. Father. Paternal Grandfather. Status:Active Hypertension Comments:Mother. Status:Active Parkinson's Disease Comments:Father. Status:Active Unknown Family Member Name Dates Details Colon Cancer Comments:Mother. Status:Active Heart Disease Comments:Mother. Maternal Gr andmother. Father. Paternal Grandfather. Status:Active Hypertension Comments:Mother. Status:Active Parkinson's Disease Comments:Father. Status:Active Unknown Family Member Name Dates Details Colon Cancer Comments:Mother. Status:Active Heart Disease Comments:Mother. Maternal Gr andmother. Father. Paternal Grandfather. Status:Active Hypertension Comments:Mother. Status:Active Parkinson's Disease Comments:Father. Status:Active Unknown Family Member Name Dates Details Colon Cancer Comments:Mother. Status:Active Heart Disease Comments:Mother. Maternal Gr andmother. Father. Paternal Grandfather. Status:Active Hypertension Comments:Mother. Status:Active Parkinson's Disease Comments:Father. Status:Active Unknown Family Member Name Dates Details Colon Cancer Comments:Mother. Status:Active Heart Disease Comments:Mother. Maternal Gr andmother. Father. Paternal Grandfather. Status:Active Hypertension Comments:Mother. Status:Active Parkinson's Disease Comments:Father. Status:Active Unknown Family Member Name Dates Details Colon Cancer Comments:Mother. Status:Active Heart Disease Comments:Mother. Maternal Gr andmother. Father. Paternal Grandfather. Status:Active Hypertension Comments:Mother. Status:Active Parkinson's Disease Comments:Father. Status:Active Unknown Family Member Name Dates Details Colon Cancer Comments:Mother. Status:Active Heart Disease Comments:Mother. Maternal Gr andmother. Father. Paternal Grandfather. Status:Active Hypertension Comments:Mother. Status:Active Parkinson's Disease Comments:Father. Status:Active Unknown Family Member Name Dates Details Colon Cancer Comments:Mother. Status:Active Heart Disease Comments:Mother. Maternal Gr andmother. Father. Paternal Grandfather. Status:Active Hypertension Comments:Mother. Status:Active Parkinson's Disease Comments:Father. Status:Active Unknown Family Member Name Dates Details Colon Cancer Comments:Mother. Status:Active Heart Disease Comments:Mother. Maternal Gr andmother. Father. Paternal Grandfather. Status:Active Hypertension Comments:Mother. Status:Active Parkinson's Disease Comments:Father. Status:Active Unknown Family Member Name Dates Details Colon Cancer Comments:Mother. Status:Active Heart Disease Comments:Mother. Maternal Gr andmother. Father. Paternal Grandfather. Status:Active Hypertension Comments:Mother. Status:Active Parkinson's Disease Comments:Father. Status:Active Unknown Family Member Name Dates Details Colon Cancer Comments:Mother. Status:Active Heart Disease Comments:Mother. Maternal Gr andmother. Father. Paternal Grandfather. Status:Active Hypertension Comments:Mother. Status:Active Parkinson's Disease Comments:Father. Status:Active Unknown Family Member Name Dates Details Colon Cancer Comments:Mother. Status:Active Heart Disease Comments:Mother. Maternal Gr andmother. Father. Paternal Grandfather. Status:Active Hypertension Comments:Mother. Status:Active Parkinson's Disease Comments:Father. Status:Active Unknown Family Member Name Dates Details Colon Cancer Comments:Mother. Status:Active Heart Disease Comments:Mother. Maternal Gr andmother. Father. Paternal Grandfather. Status:Active Hypertension Comments:Mother. Status:Active Parkinson's Disease Comments:Father. Status:Active Unknown Family Member Name Dates Details Colon Cancer Comments:Mother. Status:Active Heart Disease Comments:Mother. Maternal Gr andmother. Father. Paternal Grandfather. Status:Active Hypertension Comments:Mother. Status:Active Parkinson's Disease Comments:Father. Status:Active Unknown Family Member Name Dates Details Colon Cancer Comments:Mother. Status:Active Heart Disease Comments:Mother. Maternal Gr andmother. Father. Paternal Grandfather. Status:Active Hypertension Comments:Mother. Status:Active Parkinson's Disease Comments:Father. Status:Active Unknown Family Member Name Dates Details Colon Cancer Comments:Mother. Status:Active Heart Disease Comments:Mother. Maternal Gr andmother. Father. Paternal Grandfather. Status:Active Hypertension Comments:Mother. Status:Active Parkinson's Disease Comments:Father. Status:Active Unknown Family Member Name Dates Details Colon Cancer Comments:Mother. Status:Active Heart Disease Comments:Mother. Maternal Gr andmother. Father. Paternal Grandfather. Status:Active Hypertension Comments:Mother. Status:Active Parkinson's Disease Comments:Father. Status:Active Unknown Family Member Name Dates Details Colon Cancer Comments:Mother. Status:Active Heart Disease Comments:Mother. Maternal Gr andmother. Father. Paternal Grandfather. Status:Active Hypertension Comments:Mother. Status:Active Parkinson's Disease Comments:Father. Status:Active Unknown Family Member Name Dates Details Colon Cancer Comments:Mother. Status:Active Heart Disease Comments:Mother. Maternal Gr andmother. Father. Paternal Grandfather. Status:Active Hypertension Comments:Mother. Status:Active Parkinson's Disease Comments:Father. Status:Active Unknown Family Member Name Dates Details Colon Cancer Comments:Mother. Status:Active Heart Disease Comments:Mother. Maternal Gr andmother. Father. Paternal Grandfather. Status:Active Hypertension Comments:Mother. Status:Active Parkinson's Disease Comments:Father. Status:Active Unknown Family Member Name Dates Details Colon Cancer Comments:Mother. Status:Active Heart Disease Comments:Mother. Maternal Gr andmother. Father. Paternal Grandfather. Status:Active Hypertension Comments:Mother. Status:Active Parkinson's Disease Comments:Father. Status:Active Unknown Family Member Name Dates Details Colon Cancer Comments:Mother. Status:Active Heart Disease Comments:Mother. Maternal Gr andmother. Father. Paternal Grandfather. Status:Active Hypertension Comments:Mother. Status:Active Parkinson's Disease Comments:Father. Status:Active Unknown Family Member Name Dates Details Colon Cancer Comments:Mother. Status:Active Heart Disease Comments:Mother. Maternal Gr andmother. Father. Paternal Grandfather. Status:Active Hypertension Comments:Mother. Status:Active Parkinson's Disease Comments:Father. Status:Active Unknown Family Member Name Dates Details Colon Cancer Comments:Mother. Status:Active Heart Disease Comments:Mother. Maternal Gr andmother. Father. Paternal Grandfather. Status:Active Hypertension Comments:Mother. Status:Active Parkinson's Disease Comments:Father. Status:Active Unknown Family Member Name Dates Details Colon Cancer Comments:Mother. Status:Active Heart Disease Comments:Mother. Maternal Gr andmother. Father. Paternal Grandfather. Status:Active Hypertension Comments:Mother. Status:Active Parkinson's Disease Comments:Father. Status:Active Unknown Family Member Name Dates Details Colon Cancer Comments:Mother. Status:Active Heart Disease Comments:Mother. Maternal Gr andmother. Father. Paternal Grandfather. Status:Active Hypertension Comments:Mother. Status:Active Parkinson's Disease Comments:Father. Status:Active Unknown Family Member Name Dates Details Colon Cancer Comments:Mother. Status:Active Heart Disease Comments:Mother. Maternal Gr andmother. Father. Paternal Grandfather. Status:Active Hypertension Comments:Mother. Status:Active Parkinson's Disease Comments:Father. Status:Active Unknown Family Member Name Dates Details Colon Cancer Comments:Mother. Status:Active Heart Disease Comments:Mother. Maternal Gr andmother. Father. Paternal Grandfather. Status:Active Hypertension Comments:Mother. Status:Active Parkinson's Disease Comments:Father. Status:Active Unknown Family Member Name Dates Details Colon Cancer Comments:Mother. Status:Active Heart Disease Comments:Mother. Maternal Gr andmother. Father. Paternal Grandfather. Status:Active Hypertension Comments:Mother. Status:Active Parkinson's Disease Comments:Father. Status:Active Unknown Family Member Name Dates Details Colon Cancer Comments:Mother. Status:Active Heart Disease Comments:Mother. Maternal Gr andmother. Father. Paternal Grandfather. Status:Active Hypertension Comments:Mother. Status:Active Parkinson's Disease Comments:Father. Status:Active Unknown Family Member Name Dates Details Colon Cancer Comments:Mother. Status:Active Heart Disease Comments:Mother. Maternal Gr andmother. Father. Paternal Grandfather. Status:Active Hypertension Comments:Mother. Status:Active Parkinson's Disease Comments:Father. Status:Active Unknown Family Member Name Dates Details Colon Cancer Comments:Mother. Status:Active Heart Disease Comments:Mother. Maternal Gr andmother. Father. Paternal Grandfather. Status:Active Hypertension Comments:Mother. Status:Active Parkinson's Disease Comments:Father. Status:Active Unknown Family Member Name Dates Details Colon Cancer Comments:Mother. Status:Active Heart Disease Comments:Mother. Maternal Gr andmother. Father. Paternal Grandfather. Status:Active Hypertension Comments:Mother. Status:Active Parkinson's Disease Comments:Father. Status:Active Unknown Family Member Name Dates Details Colon Cancer Comments:Mother. Status:Active Heart Disease Comments:Mother. Maternal Gr andmother. Father. Paternal Grandfather. Status:Active Hypertension Comments:Mother. Status:Active Parkinson's Disease Comments:Father. Status:Active Unknown Family Member Name Dates Details Colon Cancer Comments:Mother. Status:Active Heart Disease Comments:Mother. Maternal Gr andmother. Father. Paternal Grandfather. Status:Active Hypertension Comments:Mother. Status:Active Parkinson's Disease Comments:Father. Status:Active Unknown Family Member Name Dates Details Colon Cancer Comments:Mother. Status:Active Heart Disease Comments:Mother. Maternal Gr andmother. Father. Paternal Grandfather. Status:Active Hypertension Comments:Mother. Status:Active Parkinson's Disease Comments:Father. Status:Active Unknown Family Member Name Dates Details Colon Cancer Comments:Mother. Status:Active Heart Disease Comments:Mother. Maternal Gr andmother. Father. Paternal Grandfather. Status:Active Hypertension Comments:Mother. Status:Active Parkinson's Disease Comments:Father. Status:Active Unknown Family Member Name Dates Details Colon Cancer Comments:Mother. Status:Active Heart Disease Comments:Mother. Maternal Gr andmother. Father. Paternal Grandfather. Status:Active Hypertension Comments:Mother. Status:Active Parkinson's Disease Comments:Father. Status:Active Unknown Family Member Name Dates Details Colon Cancer Comments:Mother. Status:Active Heart Disease Comments:Mother. Maternal Gr andmother. Father. Paternal Grandfather. Status:Active Hypertension Comments:Mother. Status:Active Parkinson's Disease Comments:Father. Status:Active Relationship Condition Age at [place] Recorded Date/T destiny mother Malignant neoplasm of colon Unknown Myocardial infarction Unknown father Parkinson's disease Unknown Unknown Family Member Name Dates Details Colon Cancer Comments:Mother. Status:Active Heart Disease Comments:Mother. Maternal Gr andmother. Father. Paternal Grandfather. Status:Active Hypertension Comments:Mother. Status:Active Parkinson's Disease Comments:Father. Status:Active Unknown Family Member Name Dates Details Colon Cancer Comments:Mother. Status:Active Heart Disease Comments:Mother. Maternal Gr andmother. Father. Paternal Grandfather. Status:Active Hypertension Comments:Mother. Status:Active Parkinson's Disease Comments:Father. Status:Active Unknown Family Member Name Dates Details Colon Cancer Comments:Mother. Status:Active Heart Disease Comments:Mother. Maternal Gr andmother. Father. Paternal Grandfather. Status:Active Hypertension Comments:Mother. Status:Active Parkinson's Disease Comments:Father. Status:Active Unknown Family Member Name Dates Details Colon Cancer Comments:Mother. Status:Active Heart Disease Comments:Mother. Maternal Gr andmother. Father. Paternal Grandfather. Status:Active Hypertension Comments:Mother. Status:Active Parkinson's Disease Comments:Father. Status:Active Unknown Family Member Name Dates Details Colon Cancer Comments:Mother. Status:Active Heart Disease Comments:Mother. Maternal Gr andmother. Father. Paternal Grandfather. Status:Active Hypertension Comments:Mother. Status:Active Parkinson's Disease Comments:Father. Status:Active Unknown Family Member Name Dates Details Colon Cancer Comments:Mother. Status:Active Heart Disease Comments:Mother. Maternal Gr andmother. Father. Paternal Grandfather. Status:Active Hypertension Comments:Mother. Status:Active Parkinson's Disease Comments:Father. Status:Active Unknown Family Member Name Dates Details Colon Cancer Comments:Mother. Status:Active Heart Disease Comments:Mother. Maternal Gr andmother. Father. Paternal Grandfather. Status:Active Hypertension Comments:Mother. Status:Active Parkinson's Disease Comments:Father. Status:Active Unknown Family Member Name Dates Details Colon Cancer Comments:Mother. Status:Active Heart Disease Comments:Mother. Maternal Gr andmother. Father. Paternal Grandfather. Status:Active Hypertension Comments:Mother. Status:Active Parkinson's Disease Comments:Father. Status:Active Unknown Family Member Name Dates Details Colon Cancer Comments:Mother. Status:Active Heart Disease Comments:Mother. Maternal Gr andmother. Father. Paternal Grandfather. Status:Active Hypertension Comments:Mother. Status:Active Parkinson's Disease Comments:Father. Status:Active Unknown Family Member Name Dates Details Colon Cancer Comments:Mother. Status:Active Heart Disease Comments:Mother. Maternal Gr andmother. Father. Paternal Grandfather. Status:Active Hypertension Comments:Mother. Status:Active Parkinson's Disease Comments:Father. Status:Active Unknown Family Member Name Dates Details Colon Cancer Comments:Mother. Status:Active Heart Disease Comments:Mother. Maternal Gr andmother. Father. Paternal Grandfather. Status:Active Hypertension Comments:Mother. Status:Active Parkinson's Disease Comments:Father. Status:Active Unknown Family Member Name Dates Details Colon Cancer Comments:Mother. Status:Active Heart Disease Comments:Mother. Maternal Gr andmother. Father. Paternal Grandfather. Status:Active Hypertension Comments:Mother. Status:Active Parkinson's Disease Comments:Father. Status:Active Unknown Family Member Name Dates Details Colon Cancer Comments:Mother. Status:Active Heart Disease Comments:Mother. Maternal Gr andmother. Father. Paternal Grandfather. Status:Active Hypertension Comments:Mother. Status:Active Parkinson's Disease Comments:Father. Status:Active Unknown Family Member Name Dates Details Colon Cancer Comments:Mother. Status:Active Heart Disease Comments:Mother. Maternal Gr andmother. Father. Paternal Grandfather. Status:Active Hypertension Comments:Mother. Status:Active Parkinson's Disease Comments:Father. Status:Active Advance Directives No Advanced Directives Records Found Name Dates Details Immunization Registry [place] - Effective on 09/04/2017. Expiration date unspecified Effective:04-Sep-2017 Name Dates Details Immunization [facility] [place] - Effective on 09/04/2017. Expiration date unspecified Effective:04-Sep-2017 Name Dates Details Immunization [facility] [place] - Effective on 09/04/2017. Expiration date unspecified Effective:04-Sep-2017 Name Dates Details Immunization [facility] [place] - Effective on 09/04/2017. Expiration date unspecified Effective:04-Sep-2017 Name Dates Details Immunization [facility] [place] - Effective on 09/04/2017. Expiration date unspecified Effective:04-Sep-2017 Name Dates Details Immunization [facility] - Effective on 09/04/2017. Expiration date unspecified Effective:04-Sep-2017 Name Dates Details Immunization [facility] - Effective on 09/04/2017. Expiration date unspecified Effective:04-Sep-2017 Name Dates Details Immunization [facility] - Effective on 09/04/2017. Expiration date unspecified Effective:04-Sep-2017 Name Dates Details Immunization [facility] - Effective on 09/04/2017. Expiration date unspecified Effective:04-Sep-2017 Name Dates Details Immunization [facility] - Effective on 09/04/2017. Expiration date unspecified Effective:04-Sep-2017 Name Dates Details Immun[facility] - Effective on 09/04/2017. Expiration date unspecified Effective:04-Sep-2017 Name Dates Details Immunization [facility] - Effective on 09/04/2017. Expiration date unspecified Effective:04-Sep-2017 Name Dates Details [facility] - Effective on 09/04/2017. Expiration date unspecified Effective:04-Sep-2017 Name Dates Details Immun[facility] - Effective on 09/04/2017. Expiration date unspecified Effective:04-Sep-2017 Name Dates Details Immun[facility] - Effective on 09/04/2017. Expiration date unspecified Effective:04-Sep-2017 Name Dates Details Immun[facility] - Effective on 09/04/2017. Expiration date unspecified Effective:04-Sep-2017 Name Dates Details Immun[facility] - Effective on 09/04/2017. Expiration date unspecified Effective:04-Sep-2017 Name Dates Details Immun[facility] - Effective on 09/04/2017. Expiration date unspecified Effective:04-Sep-2017 Name Dates Details Immun[facility] - Effective on 09/04/2017. Expiration date unspecified Effective:04-Sep-2017 Name Dates Details Immun[facility] [place] - Effective on 09/04/2017. Expiration date unspecified Effective:04-Sep-2017 Name Dates Details [facility] - Effective on 09/04/2017. Expiration date unspecified Effective:04-Sep-2017 Name Dates Details Immun[facility] - Effective on 09/04/2017. Expiration date unspecified Effective:04-Sep-2017 Name Dates Details Immun[facility] - Effective on 09/04/2017. Expiration date unspecified Effective:04-Sep-2017 Name Dates Details [facility] - Effective on 09/04/2017. Expiration date unspecified Effective:04-Sep-2017 Name Dates Details Immun[facility] - Effective on 09/04/2017. Expiration date unspecified Effective:04-Sep-2017 Name Dates Details Immun[facility] - Effective on 09/04/2017. Expiration date unspecified Effective:04-Sep-2017 Name Dates Details Immun[facility] - Effective on 09/04/2017. Expiration date unspecified Effective:04-Sep-2017 Name Dates Details Immun[facility] - Effective on 09/04/2017. Expiration date unspecified Effective:04-Sep-2017 Name Dates Details Immunization [facility] [place] - Effective on 09/04/2017. Expiration date unspecified Effective:04-Sep-2017 Name Dates Details Immunization [facility] - Effective on 09/04/2017. Expiration date unspecified Effective:04-Sep-2017 Latest Code Status on File Code Status Date Activated Date Inactivated Comments Full Code 01/21/2019 12:11 PM Full Code 01/19/2019 11:43 AM 01/20/2019 5:09 PM Full Code Order Discussed With: Patient Name Dates Details Immunization [facility] [place] - Effective on 09/04/2017. Expiration date unspecified Effective:04-Sep-2017 Latest Code Status on File Code Status Date Activated Date Inactivated Comments Full Code 01/21/2019 12:11 PM Full Code 01/19/2019 11:43 AM 01/20/2019 5:09 PM Latest Code Status on File Code Status Date Activated Date Inactivated Comments Full Code 01/21/2019 12:11 PM 05/15/2022 10:23 AM Latest Code Status on File Code Status Date Activated Date Inactivated Comments Full Code 05/18/2022 12:15 PM Full Code 05/17/2022 8:17 AM 05/17/2022 10:20 PM Full Code 01/21/2019 12:11 PM 05/15/2022 10:23 AM Latest Code Status on File Code Status Date Activated Date Inactivated Comments Full Code 05/18/2022 12:15 PM Full Code 05/17/2022 8:17 AM 05/17/2022 10:20 PM Full Code 01/21/2019 12:11 PM 05/15/2022 10:23 AM Name Dates Details Immunization [facility] [place] - Effective on 09/04/2017. Expiration date unspecified Effective:04-Sep-2017 Name Dates Details Immunization [facility] [place] - Effective on 09/04/2017. Expiration date unspecified Effective:04-Sep-2017 Name Dates Details Immunization [facility] [place] - Effective on 07/07/2022. Expiration date unspecified Effective:07-Jul-2022 Name Dates Details Immunization [facility] - Effective on 07/07/2022. Expiration date unspecified Effective:07-Jul-2022 Name Dates Details Immunization [facility] - Effective on 07/07/2022. Expiration date unspecified Effective:07-Jul-2022 Name Dates Details Immunization [facility] - Effective on 07/07/2022. Expiration date unspecified Effective:07-Jul-2022 Name Dates Details Immunization [facility] - Effective on 07/07/2022. Expiration date unspecified Effective:07-Jul-2022 Name Dates Details Immunization [facility] - Effective on 07/07/2022. Expiration date unspecified Effective:07-Jul-2022 Name Dates Details Immunization [facility] - Effective on 07/07/2022. Expiration date unspecified Effective:07-Jul-2022 Name Dates Details Immunization [facility] - Effective on 07/07/2022. Expiration date unspecified Effective:07-Jul-2022 Name Dates Details Immun[facility] - Effective on 07/07/2022. Expiration date unspecified Effective:07-Jul-2022 Latest Code Status on File Code Status Date Activated Date Inactivated Comments Full Code 05/18/2022 12:15 PM Code Status History Code Status Date Activated Date Inactivated Comments Full Code 05/17/2022 8:17 AM 05/17/2022 10:20 PM Question Answer Comments Full Code Order Discussed With: Patient Full Code 01/21/2019 12:11 PM 05/15/2022 10:23 AM Full Code 01/19/2019 11:43 AM 01/20/2019 5:09 PM Question Answer Comments Full Code Order Discussed With: Patient Name Dates Details Immunization [facility] [place] - Effective on 07/07/2022. Expiration date unspecified Effective:07-Jul-2022 Name Dates Details Immunization [facility] [place] - Effective on 07/07/2022. Expiration date unspecified Effective:07-Jul-2022 Name Dates Details Immunization [facility] - Effective on 07/07/2022. Expiration date unspecified Effective:07-Jul-2022 Name Dates Details Immunization [facility] - Effective on 07/07/2022. Expiration date unspecified Effective:07-Jul-2022 Name Dates Details Immunization [facility] - Effective on 07/07/2022. Expiration date unspecified Effective:07-Jul-2022 Latest Code Status on File Code Status Date Activated Date Inactivated Comments Full Code 05/18/2022 12:15 PM Code Status History Code Status Date Activated Date Inactivated Comments Full Code 05/17/2022 8:17 AM 05/17/2022 10:20 PM Question Answer Comments Full Code Order Discussed With: Patient Full Code 01/21/2019 12:11 PM 05/15/2022 10:23 AM Full Code 01/19/2019 11:43 AM 01/20/2019 5:09 PM Question Answer Comments Full Code Order Discussed With: Patient Date Activated Date Inactivated Comments 05/18/2022 12:15 PM Date Activated Date Inactivated Comments 05/17/2022 8:17 AM 05/17/2022 10:20 PM Question Answer Comments Full Code Order Discussed With: Patient Date Activated Date Inactivated Comments 01/21/2019 12:11 PM 05/15/2022 10:23 AM Date Activated Date Inactivated Comments 01/19/2019 11:43 AM 01/20/2019 5:09 PM Question Answer Comments Full Code Order Discussed With: Patient Date Activated Date Inactivated Comments 05/18/2022 12:15 PM Date Activated Date Inactivated Comments 05/17/2022 8:17 AM 05/17/2022 10:20 PM Question Answer Comments Full Code Order Discussed With: Patient Date Activated Date Inactivated Comments 01/21/2019 12:11 PM 05/15/2022 10:23 AM Date Activated Date Inactivated Comments 01/19/2019 11:43 AM 01/20/2019 5:09 PM Question Answer Comments Full Code Order Discussed With: Patient Date Activated Date Inactivated Comments 12/03/2023 4:14 PM 12/04/2023 3:06 PM Question Answer Comments Full Code Order Discussed With: Patient Date Activated Date Inactivated Comments 05/18/2022 12:15 PM 12/03/2023 7:42 AM Date Activated Date Inactivated Comments 05/17/2022 8:17 AM 05/17/2022 10:20 PM Question Answer Comments Full Code Order Discussed With: Patient Date Activated Date Inactivated Comments 01/21/2019 12:11 PM 05/15/2022 10:23 AM Date Activated Date Inactivated Comments 01/19/2019 11:43 AM 01/20/2019 5:09 PM Question Answer Comments Full Code Order Discussed With: Patient Date Activated Date Inactivated Comments 12/05/2023 1:35 PM Date Activated Date Inactivated Comments 12/03/2023 4:14 PM 12/04/2023 3:06 PM Date Activated Date Inactivated Comments 05/18/2022 12:15 PM 12/03/2023 7:42 AM Date Activated Date Inactivated Comments 05/17/2022 8:17 AM 05/17/2022 10:20 PM Date Activated Date Inactivated Comments 01/21/2019 12:11 PM 05/15/2022 10:23 AM Date Activated Date Inactivated Comments 12/05/2023 1:35 PM Date Activated Date Inactivated Comments 12/03/2023 4:14 PM 12/04/2023 3:06 PM Date Activated Date Inactivated Comments 05/18/2022 12:15 PM 12/03/2023 7:42 AM Date Activated Date Inactivated Comments 05/17/2022 8:17 AM 05/17/2022 10:20 PM Date Activated Date Inactivated Comments 01/21/2019 12:11 PM 05/15/2022 10:23 AM Instructions Name Dates Details Non-smoker : How to access h ealth information online Indication:Non-smoker Non-smoker : How to access h ealth information online - Detail Indication:Non-smoker Non-smoker : Patient Instruc tions Indication:Non-smoker BMI 30.0-30.9,adult : How to access health information online Indication:BMI 30.0-30.9,adult BMI 30.0-30.9,adult : How to access health information online - Detail Indication:BMI 30.0-30.9,adult BMI 30.0-30.9,adult : Patien t Instructions Indication:BMI 30.0-30.9,adult Name Dates Details Non-smoker : How to access h ealth information online Indication:Non-smoker Non-smoker : How to access h ealth information online - Detail Indication:Non-smoker Non-smoker : Patient Instruc tions Indication:Non-smoker BMI 30.0-30.9,adult : How to access health information online Indication:BMI 30.0-30.9,adult BMI 30.0-30.9,adult : How to access health information online - Detail Indication:BMI 30.0-30.9,adult BMI 30.0-30.9,adult : Patien t Instructions Indication:BMI 30.0-30.9,adult Name Dates Details How to access health informa tion online Indication:Non-smoker Start:17-Jan-2019 Instruction Type:Patient Education How to access health informa tion online - Detail Indication:Non-smoker Start:17-Jan-2019 Instruction Type:Patient Education Patient Instructions Indication:Non-smoker Start:17-Jan-2019 Instruction Type:Provider Instructions for Treatment How to access health informa tion online Indication:Non-smoker Start:15-Jul-2018 Instruction Type:Patient Education How to access health informa tion online - Detail Indication:Non-smoker Start:15-Jul-2018 Instruction Type:Patient Education Patient Instructions Indication:Non-smoker Start:15-Jul-2018 Instruction Type:Provider Instructions for Treatment How to access health informa tion online Indication:Non-smoker Start:01-Feb-2018 Instruction Type:Patient Education How to access health informa tion online - Detail Indication:Non-smoker Start:01-Feb-2018 Instruction Type:Patient Education Patient Instructions Indication:Non-smoker Start:01-Feb-2018 Instruction Type:Provider Instructions for Treatment How to access health informa tion online - Detail Indication:Non-smoker Start:31-Dec-2017 Instruction Type:Patient Education How to access health informa tion online Indication:Non-smoker Start:31-Dec-2017 Instruction Type:Patient Education Patient Instructions Indication:Non-smoker Start:31-Dec-2017 Instruction Type:Provider Instructions for Treatment How to access health informa tion online Indication:Non-smoker Start:15-Sep-2017 Instruction Type:Patient Education How to access health informa tion online - Detail Indication:Non-smoker Start:15-Sep-2017 Instruction Type:Patient Education Patient Instructions Indication:Non-smoker Start:15-Sep-2017 Instruction Type:Provider Instructions for Treatment How to access health informa tion online Indication:BMI 30.0-30.9,adult Start:04-Sep-2017 Instruction Type:Patient Education How to access health informa tion online - Detail Indication:BMI 30.0-30.9,adult Start:04-Sep-2017 Instruction Type:Patient Education Patient Instructions Indication:BMI 30.0-30.9,adult Start:04-Sep-2017 Instruction Type:Provider Instructions for Treatment Name Dates Details How to access health informa tion online Indication:Non-smoker Start:17-Jan-2019 Instruction Type:Patient Education How to access health informa tion online - Detail Indication:Non-smoker Start:17-Jan-2019 Instruction Type:Patient Education Patient Instructions Indication:Non-smoker Start:17-Jan-2019 Instruction Type:Provider Instructions for Treatment How to access health informa tion online Indication:Non-smoker Start:15-Jul-2018 Instruction Type:Patient Education How to access health informa tion online - Detail Indication:Non-smoker Start:15-Jul-2018 Instruction Type:Patient Education Patient Instructions Indication:Non-smoker Start:15-Jul-2018 Instruction Type:Provider Instructions for Treatment How to access health informa tion online Indication:Non-smoker Start:01-Feb-2018 Instruction Type:Patient Education How to access health informa tion online - Detail Indication:Non-smoker Start:01-Feb-2018 Instruction Type:Patient Education Patient Instructions Indication:Non-smoker Start:01-Feb-2018 Instruction Type:Provider Instructions for Treatment How to access health informa tion online - Detail Indication:Non-smoker Start:31-Dec-2017 Instruction Type:Patient Education How to access health informa tion online Indication:Non-smoker Start:31-Dec-2017 Instruction Type:Patient Education Patient Instructions Indication:Non-smoker Start:31-Dec-2017 Instruction Type:Provider Instructions for Treatment How to access health informa tion online Indication:Non-smoker Start:15-Sep-2017 Instruction Type:Patient Education How to access health informa tion online - Detail Indication:Non-smoker Start:15-Sep-2017 Instruction Type:Patient Education Patient Instructions Indication:Non-smoker Start:15-Sep-2017 Instruction Type:Provider Instructions for Treatment How to access health informa tion online Indication:BMI 30.0-30.9,adult Start:04-Sep-2017 Instruction Type:Patient Education How to access health informa tion online - Detail Indication:BMI 30.0-30.9,adult Start:04-Sep-2017 Instruction Type:Patient Education Patient Instructions Indication:BMI 30.0-30.9,adult Start:04-Sep-2017 Instruction Type:Provider Instructions for Treatment Name Dates Details How to access health informa tion online Indication:Non-smoker Start:17-Jan-2019 Instruction Type:Patient Education How to access health informa tion online - Detail Indication:Non-smoker Start:17-Jan-2019 Instruction Type:Patient Education Patient Instructions Indication:Non-smoker Start:17-Jan-2019 Instruction Type:Provider Instructions for Treatment How to access health informa tion online Indication:Non-smoker Start:15-Jul-2018 Instruction Type:Patient Education How to access health informa tion online - Detail Indication:Non-smoker Start:15-Jul-2018 Instruction Type:Patient Education Patient Instructions Indication:Non-smoker Start:15-Jul-2018 Instruction Type:Provider Instructions for Treatment How to access health informa tion online Indication:Non-smoker Start:01-Feb-2018 Instruction Type:Patient Education How to access health informa tion online - Detail Indication:Non-smoker Start:01-Feb-2018 Instruction Type:Patient Education Patient Instructions Indication:Non-smoker Start:01-Feb-2018 Instruction Type:Provider Instructions for Treatment How to access health informa tion online - Detail Indication:Non-smoker Start:31-Dec-2017 Instruction Type:Patient Education How to access health informa tion online Indication:Non-smoker Start:31-Dec-2017 Instruction Type:Patient Education Patient Instructions Indication:Non-smoker Start:31-Dec-2017 Instruction Type:Provider Instructions for Treatment How to access health informa tion online Indication:Non-smoker Start:15-Sep-2017 Instruction Type:Patient Education How to access health informa tion online - Detail Indication:Non-smoker Start:15-Sep-2017 Instruction Type:Patient Education Patient Instructions Indication:Non-smoker Start:15-Sep-2017 Instruction Type:Provider Instructions for Treatment How to access health informa tion online Indication:BMI 30.0-30.9,adult Start:04-Sep-2017 Instruction Type:Patient Education How to access health informa tion online - Detail Indication:BMI 30.0-30.9,adult Start:04-Sep-2017 Instruction Type:Patient Education Patient Instructions Indication:BMI 30.0-30.9,adult Start:04-Sep-2017 Instruction Type:Provider Instructions for Treatment Name Dates Details How to access health informa tion online Indication:Non-smoker Start:03-Mar-2019 Instruction Type:Patient Education How to access health informa tion online - Detail Indication:Non-smoker Start:03-Mar-2019 Instruction Type:Patient Education Patient Instructions Indication:Non-smoker Start:03-Mar-2019 Instruction Type:Provider Instructions for Treatment How to access health informa tion online Indication:Non-smoker Start:17-Jan-2019 Instruction Type:Patient Education How to access health informa tion online - Detail Indication:Non-smoker Start:17-Jan-2019 Instruction Type:Patient Education Patient Instructions Indication:Non-smoker Start:17-Jan-2019 Instruction Type:Provider Instructions for Treatment How to access health informa tion online Indication:Non-smoker Start:15-Jul-2018 Instruction Type:Patient Education How to access health informa tion online - Detail Indication:Non-smoker Start:15-Jul-2018 Instruction Type:Patient Education Patient Instructions Indication:Non-smoker Start:15-Jul-2018 Instruction Type:Provider Instructions for Treatment How to access health informa tion online Indication:Non-smoker Start:01-Feb-2018 Instruction Type:Patient Education How to access health informa tion online - Detail Indication:Non-smoker Start:01-Feb-2018 Instruction Type:Patient Education Patient Instructions Indication:Non-smoker Start:01-Feb-2018 Instruction Type:Provider Instructions for Treatment How to access health informa tion online - Detail Indication:Non-smoker Start:31-Dec-2017 Instruction Type:Patient Education How to access health informa tion online Indication:Non-smoker Start:31-Dec-2017 Instruction Type:Patient Education Patient Instructions Indication:Non-smoker Start:31-Dec-2017 Instruction Type:Provider Instructions for Treatment How to access health informa tion online Indication:Non-smoker Start:15-Sep-2017 Instruction Type:Patient Education How to access health informa tion online - Detail Indication:Non-smoker Start:15-Sep-2017 Instruction Type:Patient Education Patient Instructions Indication:Non-smoker Start:15-Sep-2017 Instruction Type:Provider Instructions for Treatment How to access health informa tion online Indication:BMI 30.0-30.9,adult Start:04-Sep-2017 Instruction Type:Patient Education How to access health informa tion online - Detail Indication:BMI 30.0-30.9,adult Start:04-Sep-2017 Instruction Type:Patient Education Patient Instructions Indication:BMI 30.0-30.9,adult Start:04-Sep-2017 Instruction Type:Provider Instructions for Treatment Name Dates Details How to access health informa tion online Indication:Non-smoker Start:03-Mar-2019 Instruction Type:Patient Education How to access health informa tion online - Detail Indication:Non-smoker Start:03-Mar-2019 Instruction Type:Patient Education Patient Instructions Indication:Non-smoker Start:03-Mar-2019 Instruction Type:Provider Instructions for Treatment How to access health informa tion online Indication:Non-smoker Start:17-Jan-2019 Instruction Type:Patient Education How to access health informa tion online - Detail Indication:Non-smoker Start:17-Jan-2019 Instruction Type:Patient Education Patient Instructions Indication:Non-smoker Start:17-Jan-2019 Instruction Type:Provider Instructions for Treatment How to access health informa tion online Indication:Non-smoker Start:15-Jul-2018 Instruction Type:Patient Education How to access health informa tion online - Detail Indication:Non-smoker Start:15-Jul-2018 Instruction Type:Patient Education Patient Instructions Indication:Non-smoker Start:15-Jul-2018 Instruction Type:Provider Instructions for Treatment How to access health informa tion online Indication:Non-smoker Start:01-Feb-2018 Instruction Type:Patient Education How to access health informa tion online - Detail Indication:Non-smoker Start:01-Feb-2018 Instruction Type:Patient Education Patient Instructions Indication:Non-smoker Start:01-Feb-2018 Instruction Type:Provider Instructions for Treatment How to access health informa tion online - Detail Indication:Non-smoker Start:31-Dec-2017 Instruction Type:Patient Education How to access health informa tion online Indication:Non-smoker Start:31-Dec-2017 Instruction Type:Patient Education Patient Instructions Indication:Non-smoker Start:31-Dec-2017 Instruction Type:Provider Instructions for Treatment How to access health informa tion online Indication:Non-smoker Start:15-Sep-2017 Instruction Type:Patient Education How to access health informa tion online - Detail Indication:Non-smoker Start:15-Sep-2017 Instruction Type:Patient Education Patient Instructions Indication:Non-smoker Start:15-Sep-2017 Instruction Type:Provider Instructions for Treatment How to access health informa tion online Indication:BMI 30.0-30.9,adult Start:04-Sep-2017 Instruction Type:Patient Education How to access health informa tion online - Detail Indication:BMI 30.0-30.9,adult Start:04-Sep-2017 Instruction Type:Patient Education Patient Instructions Indication:BMI 30.0-30.9,adult Start:04-Sep-2017 Instruction Type:Provider Instructions for Treatment Name Dates Details How to access health informa tion online Indication:Non-smoker Start:03-Mar-2019 Instruction Type:Patient Education How to access health informa tion online - Detail Indication:Non-smoker Start:03-Mar-2019 Instruction Type:Patient Education Patient Instructions Indication:Non-smoker Start:03-Mar-2019 Instruction Type:Provider Instructions for Treatment How to access health informa tion online Indication:Non-smoker Start:17-Jan-2019 Instruction Type:Patient Education How to access health informa tion online - Detail Indication:Non-smoker Start:17-Jan-2019 Instruction Type:Patient Education Patient Instructions Indication:Non-smoker Start:17-Jan-2019 Instruction Type:Provider Instructions for Treatment How to access health informa tion online Indication:Non-smoker Start:15-Jul-2018 Instruction Type:Patient Education How to access health informa tion online - Detail Indication:Non-smoker Start:15-Jul-2018 Instruction Type:Patient Education Patient Instructions Indication:Non-smoker Start:15-Jul-2018 Instruction Type:Provider Instructions for Treatment How to access health informa tion online Indication:Non-smoker Start:01-Feb-2018 Instruction Type:Patient Education How to access health informa tion online - Detail Indication:Non-smoker Start:01-Feb-2018 Instruction Type:Patient Education Patient Instructions Indication:Non-smoker Start:01-Feb-2018 Instruction Type:Provider Instructions for Treatment How to access health informa tion online - Detail Indication:Non-smoker Start:31-Dec-2017 Instruction Type:Patient Education How to access health informa tion online Indication:Non-smoker Start:31-Dec-2017 Instruction Type:Patient Education Patient Instructions Indication:Non-smoker Start:31-Dec-2017 Instruction Type:Provider Instructions for Treatment How to access health informa tion online Indication:Non-smoker Start:15-Sep-2017 Instruction Type:Patient Education How to access health informa tion online - Detail Indication:Non-smoker Start:15-Sep-2017 Instruction Type:Patient Education Patient Instructions Indication:Non-smoker Start:15-Sep-2017 Instruction Type:Provider Instructions for Treatment How to access health informa tion online Indication:BMI 30.0-30.9,adult Start:04-Sep-2017 Instruction Type:Patient Education How to access health informa tion online - Detail Indication:BMI 30.0-30.9,adult Start:04-Sep-2017 Instruction Type:Patient Education Patient Instructions Indication:BMI 30.0-30.9,adult Start:04-Sep-2017 Instruction Type:Provider Instructions for Treatment Name Dates Details How to access health informa tion online Indication:Need for prophylactic vaccination and inoculation against influenza (Renamed from Need for immunization against influenza) Start:09-May-2019 Instruction Type:Patient Education How to access health informa tion online - Detail Indication:Need for prophylactic vaccination and inoculation against influenza (Renamed from Need for immunization against influenza) Start:09-May-2019 Instruction Type:Patient Education Patient Instructions Indication:Need for prophylactic vaccination and inoculation against influenza (Renamed from Need for immunization against influenza) Start:09-May-2019 Instruction Type:Provider Instructions for Treatment How to access health informa tion online Indication:Non-smoker Start:18-Apr-2019 Instruction Type:Patient Education How to access health informa tion online - Detail Indication:Non-smoker Start:18-Apr-2019 Instruction Type:Patient Education Patient Instructions Indication:Non-smoker Start:18-Apr-2019 Instruction Type:Provider Instructions for Treatment How to access health informa tion online Indication:Non-smoker Start:03-Mar-2019 Instruction Type:Patient Education How to access health informa tion online - Detail Indication:Non-smoker Start:03-Mar-2019 Instruction Type:Patient Education Patient Instructions Indication:Non-smoker Start:03-Mar-2019 Instruction Type:Provider Instructions for Treatment How to access health informa tion online Indication:Non-smoker Start:17-Jan-2019 Instruction Type:Patient Education How to access health informa tion online - Detail Indication:Non-smoker Start:17-Jan-2019 Instruction Type:Patient Education Patient Instructions Indication:Non-smoker Start:17-Jan-2019 Instruction Type:Provider Instructions for Treatment How to access health informa tion online Indication:Non-smoker Start:15-Jul-2018 Instruction Type:Patient Education How to access health informa tion online - Detail Indication:Non-smoker Start:15-Jul-2018 Instruction Type:Patient Education Patient Instructions Indication:Non-smoker Start:15-Jul-2018 Instruction Type:Provider Instructions for Treatment How to access health informa tion online Indication:Non-smoker Start:01-Feb-2018 Instruction Type:Patient Education How to access health informa tion online - Detail Indication:Non-smoker Start:01-Feb-2018 Instruction Type:Patient Education Patient Instructions Indication:Non-smoker Start:01-Feb-2018 Instruction Type:Provider Instructions for Treatment How to access health informa tion online - Detail Indication:Non-smoker Start:31-Dec-2017 Instruction Type:Patient Education How to access health informa tion online Indication:Non-smoker Start:31-Dec-2017 Instruction Type:Patient Education Patient Instructions Indication:Non-smoker Start:31-Dec-2017 Instruction Type:Provider Instructions for Treatment How to access health informa tion online Indication:Non-smoker Start:15-Sep-2017 Instruction Type:Patient Education How to access health informa tion online - Detail Indication:Non-smoker Start:15-Sep-2017 Instruction Type:Patient Education Patient Instructions Indication:Non-smoker Start:15-Sep-2017 Instruction Type:Provider Instructions for Treatment How to access health informa tion online Indication:BMI 30.0-30.9,adult Start:04-Sep-2017 Instruction Type:Patient Education How to access health informa tion online - Detail Indication:BMI 30.0-30.9,adult Start:04-Sep-2017 Instruction Type:Patient Education Patient Instructions Indication:BMI 30.0-30.9,adult Start:04-Sep-2017 Instruction Type:Provider Instructions for Treatment Name Dates Details How to access health informa tion online Indication:Need for prophylactic vaccination and inoculation against influenza (Renamed from Need for immunization against influenza) Start:09-May-2019 Instruction Type:Patient Education How to access health informa tion online - Detail Indication:Need for prophylactic vaccination and inoculation against influenza (Renamed from Need for immunization against influenza) Start:09-May-2019 Instruction Type:Patient Education Patient Instructions Indication:Need for prophylactic vaccination and inoculation against influenza (Renamed from Need for immunization against influenza) Start:09-May-2019 Instruction Type:Provider Instructions for Treatment How to access health informa tion online Indication:Non-smoker Start:18-Apr-2019 Instruction Type:Patient Education How to access health informa tion online - Detail Indication:Non-smoker Start:18-Apr-2019 Instruction Type:Patient Education Patient Instructions Indication:Non-smoker Start:18-Apr-2019 Instruction Type:Provider Instructions for Treatment How to access health informa tion online Indication:Non-smoker Start:03-Mar-2019 Instruction Type:Patient Education How to access health informa tion online - Detail Indication:Non-smoker Start:03-Mar-2019 Instruction Type:Patient Education Patient Instructions Indication:Non-smoker Start:03-Mar-2019 Instruction Type:Provider Instructions for Treatment How to access health informa tion online Indication:Non-smoker Start:17-Jan-2019 Instruction Type:Patient Education How to access health informa tion online - Detail Indication:Non-smoker Start:17-Jan-2019 Instruction Type:Patient Education Patient Instructions Indication:Non-smoker Start:17-Jan-2019 Instruction Type:Provider Instructions for Treatment How to access health informa tion online Indication:Non-smoker Start:15-Jul-2018 Instruction Type:Patient Education How to access health informa tion online - Detail Indication:Non-smoker Start:15-Jul-2018 Instruction Type:Patient Education Patient Instructions Indication:Non-smoker Start:15-Jul-2018 Instruction Type:Provider Instructions for Treatment How to access health informa tion online Indication:Non-smoker Start:01-Feb-2018 Instruction Type:Patient Education How to access health informa tion online - Detail Indication:Non-smoker Start:01-Feb-2018 Instruction Type:Patient Education Patient Instructions Indication:Non-smoker Start:01-Feb-2018 Instruction Type:Provider Instructions for Treatment How to access health informa tion online - Detail Indication:Non-smoker Start:31-Dec-2017 Instruction Type:Patient Education How to access health informa tion online Indication:Non-smoker Start:31-Dec-2017 Instruction Type:Patient Education Patient Instructions Indication:Non-smoker Start:31-Dec-2017 Instruction Type:Provider Instructions for Treatment How to access health informa tion online Indication:Non-smoker Start:15-Sep-2017 Instruction Type:Patient Education How to access health informa tion online - Detail Indication:Non-smoker Start:15-Sep-2017 Instruction Type:Patient Education Patient Instructions Indication:Non-smoker Start:15-Sep-2017 Instruction Type:Provider Instructions for Treatment How to access health informa tion online Indication:BMI 30.0-30.9,adult Start:04-Sep-2017 Instruction Type:Patient Education How to access health informa tion online - Detail Indication:BMI 30.0-30.9,adult Start:04-Sep-2017 Instruction Type:Patient Education Patient Instructions Indication:BMI 30.0-30.9,adult Start:04-Sep-2017 Instruction Type:Provider Instructions for Treatment Name Dates Details How to access health informa tion online Indication:Need for prophylactic vaccination and inoculation against influenza (Renamed from Need for immunization against influenza) Start:09-May-2019 Instruction Type:Patient Education How to access health informa tion online - Detail Indication:Need for prophylactic vaccination and inoculation against influenza (Renamed from Need for immunization against influenza) Start:09-May-2019 Instruction Type:Patient Education Patient Instructions Indication:Need for prophylactic vaccination and inoculation against influenza (Renamed from Need for immunization against influenza) Start:09-May-2019 Instruction Type:Provider Instructions for Treatment How to access health informa tion online Indication:Non-smoker Start:18-Apr-2019 Instruction Type:Patient Education How to access health informa tion online - Detail Indication:Non-smoker Start:18-Apr-2019 Instruction Type:Patient Education Patient Instructions Indication:Non-smoker Start:18-Apr-2019 Instruction Type:Provider Instructions for Treatment How to access health informa tion online Indication:Non-smoker Start:03-Mar-2019 Instruction Type:Patient Education How to access health informa tion online - Detail Indication:Non-smoker Start:03-Mar-2019 Instruction Type:Patient Education Patient Instructions Indication:Non-smoker Start:03-Mar-2019 Instruction Type:Provider Instructions for Treatment How to access health informa tion online Indication:Non-smoker Start:17-Jan-2019 Instruction Type:Patient Education How to access health informa tion online - Detail Indication:Non-smoker Start:17-Jan-2019 Instruction Type:Patient Education Patient Instructions Indication:Non-smoker Start:17-Jan-2019 Instruction Type:Provider Instructions for Treatment How to access health informa tion online Indication:Non-smoker Start:15-Jul-2018 Instruction Type:Patient Education How to access health informa tion online - Detail Indication:Non-smoker Start:15-Jul-2018 Instruction Type:Patient Education Patient Instructions Indication:Non-smoker Start:15-Jul-2018 Instruction Type:Provider Instructions for Treatment How to access health informa tion online Indication:Non-smoker Start:01-Feb-2018 Instruction Type:Patient Education How to access health informa tion online - Detail Indication:Non-smoker Start:01-Feb-2018 Instruction Type:Patient Education Patient Instructions Indication:Non-smoker Start:01-Feb-2018 Instruction Type:Provider Instructions for Treatment How to access health informa tion online - Detail Indication:Non-smoker Start:31-Dec-2017 Instruction Type:Patient Education How to access health informa tion online Indication:Non-smoker Start:31-Dec-2017 Instruction Type:Patient Education Patient Instructions Indication:Non-smoker Start:31-Dec-2017 Instruction Type:Provider Instructions for Treatment How to access health informa tion online Indication:Non-smoker Start:15-Sep-2017 Instruction Type:Patient Education How to access health informa tion online - Detail Indication:Non-smoker Start:15-Sep-2017 Instruction Type:Patient Education Patient Instructions Indication:Non-smoker Start:15-Sep-2017 Instruction Type:Provider Instructions for Treatment How to access health informa tion online Indication:BMI 30.0-30.9,adult Start:04-Sep-2017 Instruction Type:Patient Education How to access health informa tion online - Detail Indication:BMI 30.0-30.9,adult Start:04-Sep-2017 Instruction Type:Patient Education Patient Instructions Indication:BMI 30.0-30.9,adult Start:04-Sep-2017 Instruction Type:Provider Instructions for Treatment Name Dates Details How to access health informa tion online Indication:BMI 26.0-26.9,adult Start:18-Jan-2020 Instruction Type:Patient Education How to access health informa tion online - Detail Indication:BMI 26.0-26.9,adult Start:18-Jan-2020 Instruction Type:Patient Education Patient Instructions Indication:BMI 26.0-26.9,adult Start:18-Jan-2020 Instruction Type:Provider Instructions for Treatment How to access health informa tion online Indication:BMI 26.0-26.9,adult Start:18-Jul-2019 Instruction Type:Patient Education How to access health informa tion online - Detail Indication:BMI 26.0-26.9,adult Start:18-Jul-2019 Instruction Type:Patient Education Patient Instructions Indication:BMI 26.0-26.9,adult Start:18-Jul-2019 Instruction Type:Provider Instructions for Treatment How to access health informa tion online Indication:Need for prophylactic vaccination and inoculation against influenza (Renamed from Need for immunization against influenza) Start:09-May-2019 Instruction Type:Patient Education How to access health informa tion online - Detail Indication:Need for prophylactic vaccination and inoculation against influenza (Renamed from Need for immunization against influenza) Start:09-May-2019 Instruction Type:Patient Education Patient Instructions Indication:Need for prophylactic vaccination and inoculation against influenza (Renamed from Need for immunization against influenza) Start:09-May-2019 Instruction Type:Provider Instructions for Treatment How to access health informa tion online Indication:Non-smoker Start:18-Apr-2019 Instruction Type:Patient Education How to access health informa tion online - Detail Indication:Non-smoker Start:18-Apr-2019 Instruction Type:Patient Education Patient Instructions Indication:Non-smoker Start:18-Apr-2019 Instruction Type:Provider Instructions for Treatment How to access health informa tion online Indication:Non-smoker Start:03-Mar-2019 Instruction Type:Patient Education How to access health informa tion online - Detail Indication:Non-smoker Start:03-Mar-2019 Instruction Type:Patient Education Patient Instructions Indication:Non-smoker Start:03-Mar-2019 Instruction Type:Provider Instructions for Treatment How to access health informa tion online Indication:Non-smoker Start:17-Jan-2019 Instruction Type:Patient Education How to access health informa tion online - Detail Indication:Non-smoker Start:17-Jan-2019 Instruction Type:Patient Education Patient Instructions Indication:Non-smoker Start:17-Jan-2019 Instruction Type:Provider Instructions for Treatment How to access health informa tion online Indication:Non-smoker Start:15-Jul-2018 Instruction Type:Patient Education How to access health informa tion online - Detail Indication:Non-smoker Start:15-Jul-2018 Instruction Type:Patient Education Patient Instructions Indication:Non-smoker Start:15-Jul-2018 Instruction Type:Provider Instructions for Treatment How to access health informa tion online Indication:Non-smoker Start:01-Feb-2018 Instruction Type:Patient Education How to access health informa tion online - Detail Indication:Non-smoker Start:01-Feb-2018 Instruction Type:Patient Education Patient Instructions Indication:Non-smoker Start:01-Feb-2018 Instruction Type:Provider Instructions for Treatment How to access health informa tion online - Detail Indication:Non-smoker Start:31-Dec-2017 Instruction Type:Patient Education How to access health informa tion online Indication:Non-smoker Start:31-Dec-2017 Instruction Type:Patient Education Patient Instructions Indication:Non-smoker Start:31-Dec-2017 Instruction Type:Provider Instructions for Treatment How to access health informa tion online Indication:Non-smoker Start:15-Sep-2017 Instruction Type:Patient Education How to access health informa tion online - Detail Indication:Non-smoker Start:15-Sep-2017 Instruction Type:Patient Education Patient Instructions Indication:Non-smoker Start:15-Sep-2017 Instruction Type:Provider Instructions for Treatment How to access health informa tion online Indication:BMI 30.0-30.9,adult Start:04-Sep-2017 Instruction Type:Patient Education How to access health informa tion online - Detail Indication:BMI 30.0-30.9,adult Start:04-Sep-2017 Instruction Type:Patient Education Patient Instructions Indication:BMI 30.0-30.9,adult Start:04-Sep-2017 Instruction Type:Provider Instructions for Treatment Name Dates Details How to access health informa tion online Indication:Non-smoker Start:23-Feb-2020 Instruction Type:Patient Education How to access health informa tion online - Detail Indication:Non-smoker Start:23-Feb-2020 Instruction Type:Patient Education Patient Instructions Indication:Non-smoker Start:23-Feb-2020 Instruction Type:Provider Instructions for Treatment How to access health informa tion online Indication:BMI 26.0-26.9,adult Start:18-Jan-2020 Instruction Type:Patient Education How to access health informa tion online - Detail Indication:BMI 26.0-26.9,adult Start:18-Jan-2020 Instruction Type:Patient Education Patient Instructions Indication:BMI 26.0-26.9,adult Start:18-Jan-2020 Instruction Type:Provider Instructions for Treatment How to access health informa tion online Indication:BMI 26.0-26.9,adult Start:18-Jul-2019 Instruction Type:Patient Education How to access health informa tion online - Detail Indication:BMI 26.0-26.9,adult Start:18-Jul-2019 Instruction Type:Patient Education Patient Instructions Indication:BMI 26.0-26.9,adult Start:18-Jul-2019 Instruction Type:Provider Instructions for Treatment How to access health informa tion online Indication:Need for prophylactic vaccination and inoculation against influenza (Renamed from Need for immunization against influenza) Start:09-May-2019 Instruction Type:Patient Education How to access health informa tion online - Detail Indication:Need for prophylactic vaccination and inoculation against influenza (Renamed from Need for immunization against influenza) Start:09-May-2019 Instruction Type:Patient Education Patient Instructions Indication:Need for prophylactic vaccination and inoculation against influenza (Renamed from Need for immunization against influenza) Start:09-May-2019 Instruction Type:Provider Instructions for Treatment How to access health informa tion online Indication:Non-smoker Start:18-Apr-2019 Instruction Type:Patient Education How to access health informa tion online - Detail Indication:Non-smoker Start:18-Apr-2019 Instruction Type:Patient Education Patient Instructions Indication:Non-smoker Start:18-Apr-2019 Instruction Type:Provider Instructions for Treatment How to access health informa tion online Indication:Non-smoker Start:03-Mar-2019 Instruction Type:Patient Education How to access health informa tion online - Detail Indication:Non-smoker Start:03-Mar-2019 Instruction Type:Patient Education Patient Instructions Indication:Non-smoker Start:03-Mar-2019 Instruction Type:Provider Instructions for Treatment How to access health informa tion online Indication:Non-smoker Start:17-Jan-2019 Instruction Type:Patient Education How to access health informa tion online - Detail Indication:Non-smoker Start:17-Jan-2019 Instruction Type:Patient Education Patient Instructions Indication:Non-smoker Start:17-Jan-2019 Instruction Type:Provider Instructions for Treatment How to access health informa tion online Indication:Non-smoker Start:15-Jul-2018 Instruction Type:Patient Education How to access health informa tion online - Detail Indication:Non-smoker Start:15-Jul-2018 Instruction Type:Patient Education Patient Instructions Indication:Non-smoker Start:15-Jul-2018 Instruction Type:Provider Instructions for Treatment How to access health informa tion online Indication:Non-smoker Start:01-Feb-2018 Instruction Type:Patient Education How to access health informa tion online - Detail Indication:Non-smoker Start:01-Feb-2018 Instruction Type:Patient Education Patient Instructions Indication:Non-smoker Start:01-Feb-2018 Instruction Type:Provider Instructions for Treatment How to access health informa tion online - Detail Indication:Non-smoker Start:31-Dec-2017 Instruction Type:Patient Education How to access health informa tion online Indication:Non-smoker Start:31-Dec-2017 Instruction Type:Patient Education Patient Instructions Indication:Non-smoker Start:31-Dec-2017 Instruction Type:Provider Instructions for Treatment How to access health informa tion online Indication:Non-smoker Start:15-Sep-2017 Instruction Type:Patient Education How to access health informa tion online - Detail Indication:Non-smoker Start:15-Sep-2017 Instruction Type:Patient Education Patient Instructions Indication:Non-smoker Start:15-Sep-2017 Instruction Type:Provider Instructions for Treatment How to access health informa tion online Indication:BMI 30.0-30.9,adult Start:04-Sep-2017 Instruction Type:Patient Education How to access health informa tion online - Detail Indication:BMI 30.0-30.9,adult Start:04-Sep-2017 Instruction Type:Patient Education Patient Instructions Indication:BMI 30.0-30.9,adult Start:04-Sep-2017 Instruction Type:Provider Instructions for Treatment Name Dates Details How to access health informa tion online Indication:Non-smoker Start:23-Feb-2020 Instruction Type:Patient Education How to access health informa tion online - Detail Indication:Non-smoker Start:23-Feb-2020 Instruction Type:Patient Education Patient Instructions Indication:Non-smoker Start:23-Feb-2020 Instruction Type:Provider Instructions for Treatment How to access health informa tion online Indication:BMI 26.0-26.9,adult Start:18-Jan-2020 Instruction Type:Patient Education How to access health informa tion online - Detail Indication:BMI 26.0-26.9,adult Start:18-Jan-2020 Instruction Type:Patient Education Patient Instructions Indication:BMI 26.0-26.9,adult Start:18-Jan-2020 Instruction Type:Provider Instructions for Treatment How to access health informa tion online Indication:BMI 26.0-26.9,adult Start:18-Jul-2019 Instruction Type:Patient Education How to access health informa tion online - Detail Indication:BMI 26.0-26.9,adult Start:18-Jul-2019 Instruction Type:Patient Education Patient Instructions Indication:BMI 26.0-26.9,adult Start:18-Jul-2019 Instruction Type:Provider Instructions for Treatment How to access health informa tion online Indication:Need for prophylactic vaccination and inoculation against influenza (Renamed from Need for immunization against influenza) Start:09-May-2019 Instruction Type:Patient Education How to access health informa tion online - Detail Indication:Need for prophylactic vaccination and inoculation against influenza (Renamed from Need for immunization against influenza) Start:09-May-2019 Instruction Type:Patient Education Patient Instructions Indication:Need for prophylactic vaccination and inoculation against influenza (Renamed from Need for immunization against influenza) Start:09-May-2019 Instruction Type:Provider Instructions for Treatment How to access health informa tion online Indication:Non-smoker Start:18-Apr-2019 Instruction Type:Patient Education How to access health informa tion online - Detail Indication:Non-smoker Start:18-Apr-2019 Instruction Type:Patient Education Patient Instructions Indication:Non-smoker Start:18-Apr-2019 Instruction Type:Provider Instructions for Treatment How to access health informa tion online Indication:Non-smoker Start:03-Mar-2019 Instruction Type:Patient Education How to access health informa tion online - Detail Indication:Non-smoker Start:03-Mar-2019 Instruction Type:Patient Education Patient Instructions Indication:Non-smoker Start:03-Mar-2019 Instruction Type:Provider Instructions for Treatment How to access health informa tion online Indication:Non-smoker Start:17-Jan-2019 Instruction Type:Patient Education How to access health informa tion online - Detail Indication:Non-smoker Start:17-Jan-2019 Instruction Type:Patient Education Patient Instructions Indication:Non-smoker Start:17-Jan-2019 Instruction Type:Provider Instructions for Treatment How to access health informa tion online Indication:Non-smoker Start:15-Jul-2018 Instruction Type:Patient Education How to access health informa tion online - Detail Indication:Non-smoker Start:15-Jul-2018 Instruction Type:Patient Education Patient Instructions Indication:Non-smoker Start:15-Jul-2018 Instruction Type:Provider Instructions for Treatment How to access health informa tion online Indication:Non-smoker Start:01-Feb-2018 Instruction Type:Patient Education How to access health informa tion online - Detail Indication:Non-smoker Start:01-Feb-2018 Instruction Type:Patient Education Patient Instructions Indication:Non-smoker Start:01-Feb-2018 Instruction Type:Provider Instructions for Treatment How to access health informa tion online - Detail Indication:Non-smoker Start:31-Dec-2017 Instruction Type:Patient Education How to access health informa tion online Indication:Non-smoker Start:31-Dec-2017 Instruction Type:Patient Education Patient Instructions Indication:Non-smoker Start:31-Dec-2017 Instruction Type:Provider Instructions for Treatment How to access health informa tion online Indication:Non-smoker Start:15-Sep-2017 Instruction Type:Patient Education How to access health informa tion online - Detail Indication:Non-smoker Start:15-Sep-2017 Instruction Type:Patient Education Patient Instructions Indication:Non-smoker Start:15-Sep-2017 Instruction Type:Provider Instructions for Treatment How to access health informa tion online Indication:BMI 30.0-30.9,adult Start:04-Sep-2017 Instruction Type:Patient Education How to access health informa tion online - Detail Indication:BMI 30.0-30.9,adult Start:04-Sep-2017 Instruction Type:Patient Education Patient Instructions Indication:BMI 30.0-30.9,adult Start:04-Sep-2017 Instruction Type:Provider Instructions for Treatment Name Dates Details How to access health informa tion online Indication:Non-smoker Start:23-Feb-2020 Instruction Type:Patient Education How to access health informa tion online - Detail Indication:Non-smoker Start:23-Feb-2020 Instruction Type:Patient Education Patient Instructions Indication:Non-smoker Start:23-Feb-2020 Instruction Type:Provider Instructions for Treatment How to access health informa tion online Indication:BMI 26.0-26.9,adult Start:18-Jan-2020 Instruction Type:Patient Education How to access health informa tion online - Detail Indication:BMI 26.0-26.9,adult Start:18-Jan-2020 Instruction Type:Patient Education Patient Instructions Indication:BMI 26.0-26.9,adult Start:18-Jan-2020 Instruction Type:Provider Instructions for Treatment How to access health informa tion online Indication:BMI 26.0-26.9,adult Start:18-Jul-2019 Instruction Type:Patient Education How to access health informa tion online - Detail Indication:BMI 26.0-26.9,adult Start:18-Jul-2019 Instruction Type:Patient Education Patient Instructions Indication:BMI 26.0-26.9,adult Start:18-Jul-2019 Instruction Type:Provider Instructions for Treatment How to access health informa tion online Indication:Need for prophylactic vaccination and inoculation against influenza (Renamed from Need for immunization against influenza) Start:09-May-2019 Instruction Type:Patient Education How to access health informa tion online - Detail Indication:Need for prophylactic vaccination and inoculation against influenza (Renamed from Need for immunization against influenza) Start:09-May-2019 Instruction Type:Patient Education Patient Instructions Indication:Need for prophylactic vaccination and inoculation against influenza (Renamed from Need for immunization against influenza) Start:09-May-2019 Instruction Type:Provider Instructions for Treatment How to access health informa tion online Indication:Non-smoker Start:18-Apr-2019 Instruction Type:Patient Education How to access health informa tion online - Detail Indication:Non-smoker Start:18-Apr-2019 Instruction Type:Patient Education Patient Instructions Indication:Non-smoker Start:18-Apr-2019 Instruction Type:Provider Instructions for Treatment How to access health informa tion online Indication:Non-smoker Start:03-Mar-2019 Instruction Type:Patient Education How to access health informa tion online - Detail Indication:Non-smoker Start:03-Mar-2019 Instruction Type:Patient Education Patient Instructions Indication:Non-smoker Start:03-Mar-2019 Instruction Type:Provider Instructions for Treatment How to access health informa tion online Indication:Non-smoker Start:17-Jan-2019 Instruction Type:Patient Education How to access health informa tion online - Detail Indication:Non-smoker Start:17-Jan-2019 Instruction Type:Patient Education Patient Instructions Indication:Non-smoker Start:17-Jan-2019 Instruction Type:Provider Instructions for Treatment How to access health informa tion online Indication:Non-smoker Start:15-Jul-2018 Instruction Type:Patient Education How to access health informa tion online - Detail Indication:Non-smoker Start:15-Jul-2018 Instruction Type:Patient Education Patient Instructions Indication:Non-smoker Start:15-Jul-2018 Instruction Type:Provider Instructions for Treatment How to access health informa tion online Indication:Non-smoker Start:01-Feb-2018 Instruction Type:Patient Education How to access health informa tion online - Detail Indication:Non-smoker Start:01-Feb-2018 Instruction Type:Patient Education Patient Instructions Indication:Non-smoker Start:01-Feb-2018 Instruction Type:Provider Instructions for Treatment How to access health informa tion online - Detail Indication:Non-smoker Start:31-Dec-2017 Instruction Type:Patient Education How to access health informa tion online Indication:Non-smoker Start:31-Dec-2017 Instruction Type:Patient Education Patient Instructions Indication:Non-smoker Start:31-Dec-2017 Instruction Type:Provider Instructions for Treatment How to access health informa tion online Indication:Non-smoker Start:15-Sep-2017 Instruction Type:Patient Education How to access health informa tion online - Detail Indication:Non-smoker Start:15-Sep-2017 Instruction Type:Patient Education Patient Instructions Indication:Non-smoker Start:15-Sep-2017 Instruction Type:Provider Instructions for Treatment How to access health informa tion online Indication:BMI 30.0-30.9,adult Start:04-Sep-2017 Instruction Type:Patient Education How to access health informa tion online - Detail Indication:BMI 30.0-30.9,adult Start:04-Sep-2017 Instruction Type:Patient Education Patient Instructions Indication:BMI 30.0-30.9,adult Start:04-Sep-2017 Instruction Type:Provider Instructions for Treatment Name Dates Details How to access health informa tion online Indication:Non-smoker Start:23-Feb-2020 Instruction Type:Patient Education How to access health informa tion online - Detail Indication:Non-smoker Start:23-Feb-2020 Instruction Type:Patient Education Patient Instructions Indication:Non-smoker Start:23-Feb-2020 Instruction Type:Provider Instructions for Treatment How to access health informa tion online Indication:BMI 26.0-26.9,adult Start:18-Jan-2020 Instruction Type:Patient Education How to access health informa tion online - Detail Indication:BMI 26.0-26.9,adult Start:18-Jan-2020 Instruction Type:Patient Education Patient Instructions Indication:BMI 26.0-26.9,adult Start:18-Jan-2020 Instruction Type:Provider Instructions for Treatment How to access health informa tion online Indication:BMI 26.0-26.9,adult Start:18-Jul-2019 Instruction Type:Patient Education How to access health informa tion online - Detail Indication:BMI 26.0-26.9,adult Start:18-Jul-2019 Instruction Type:Patient Education Patient Instructions Indication:BMI 26.0-26.9,adult Start:18-Jul-2019 Instruction Type:Provider Instructions for Treatment How to access health informa tion online Indication:Need for prophylactic vaccination and inoculation against influenza (Renamed from Need for immunization against influenza) Start:09-May-2019 Instruction Type:Patient Education How to access health informa tion online - Detail Indication:Need for prophylactic vaccination and inoculation against influenza (Renamed from Need for immunization against influenza) Start:09-May-2019 Instruction Type:Patient Education Patient Instructions Indication:Need for prophylactic vaccination and inoculation against influenza (Renamed from Need for immunization against influenza) Start:09-May-2019 Instruction Type:Provider Instructions for Treatment How to access health informa tion online Indication:Non-smoker Start:18-Apr-2019 Instruction Type:Patient Education How to access health informa tion online - Detail Indication:Non-smoker Start:18-Apr-2019 Instruction Type:Patient Education Patient Instructions Indication:Non-smoker Start:18-Apr-2019 Instruction Type:Provider Instructions for Treatment How to access health informa tion online Indication:Non-smoker Start:03-Mar-2019 Instruction Type:Patient Education How to access health informa tion online - Detail Indication:Non-smoker Start:03-Mar-2019 Instruction Type:Patient Education Patient Instructions Indication:Non-smoker Start:03-Mar-2019 Instruction Type:Provider Instructions for Treatment How to access health informa tion online Indication:Non-smoker Start:17-Jan-2019 Instruction Type:Patient Education How to access health informa tion online - Detail Indication:Non-smoker Start:17-Jan-2019 Instruction Type:Patient Education Patient Instructions Indication:Non-smoker Start:17-Jan-2019 Instruction Type:Provider Instructions for Treatment How to access health informa tion online Indication:Non-smoker Start:15-Jul-2018 Instruction Type:Patient Education How to access health informa tion online - Detail Indication:Non-smoker Start:15-Jul-2018 Instruction Type:Patient Education Patient Instructions Indication:Non-smoker Start:15-Jul-2018 Instruction Type:Provider Instructions for Treatment How to access health informa tion online Indication:Non-smoker Start:01-Feb-2018 Instruction Type:Patient Education How to access health informa tion online - Detail Indication:Non-smoker Start:01-Feb-2018 Instruction Type:Patient Education Patient Instructions Indication:Non-smoker Start:01-Feb-2018 Instruction Type:Provider Instructions for Treatment How to access health informa tion online - Detail Indication:Non-smoker Start:31-Dec-2017 Instruction Type:Patient Education How to access health informa tion online Indication:Non-smoker Start:31-Dec-2017 Instruction Type:Patient Education Patient Instructions Indication:Non-smoker Start:31-Dec-2017 Instruction Type:Provider Instructions for Treatment How to access health informa tion online Indication:Non-smoker Start:15-Sep-2017 Instruction Type:Patient Education How to access health informa tion online - Detail Indication:Non-smoker Start:15-Sep-2017 Instruction Type:Patient Education Patient Instructions Indication:Non-smoker Start:15-Sep-2017 Instruction Type:Provider Instructions for Treatment How to access health informa tion online Indication:BMI 30.0-30.9,adult Start:04-Sep-2017 Instruction Type:Patient Education How to access health informa tion online - Detail Indication:BMI 30.0-30.9,adult Start:04-Sep-2017 Instruction Type:Patient Education Patient Instructions Indication:BMI 30.0-30.9,adult Start:04-Sep-2017 Instruction Type:Provider Instructions for Treatment Name Dates Details How to access health informa tion online Indication:Non-smoker Start:23-Feb-2020 Instruction Type:Patient Education How to access health informa tion online - Detail Indication:Non-smoker Start:23-Feb-2020 Instruction Type:Patient Education Patient Instructions Indication:Non-smoker Start:23-Feb-2020 Instruction Type:Provider Instructions for Treatment How to access health informa tion online Indication:BMI 26.0-26.9,adult Start:18-Jan-2020 Instruction Type:Patient Education How to access health informa tion online - Detail Indication:BMI 26.0-26.9,adult Start:18-Jan-2020 Instruction Type:Patient Education Patient Instructions Indication:BMI 26.0-26.9,adult Start:18-Jan-2020 Instruction Type:Provider Instructions for Treatment How to access health informa tion online Indication:BMI 26.0-26.9,adult Start:18-Jul-2019 Instruction Type:Patient Education How to access health informa tion online - Detail Indication:BMI 26.0-26.9,adult Start:18-Jul-2019 Instruction Type:Patient Education Patient Instructions Indication:BMI 26.0-26.9,adult Start:18-Jul-2019 Instruction Type:Provider Instructions for Treatment How to access health informa tion online Indication:Need for prophylactic vaccination and inoculation against influenza (Renamed from Need for immunization against influenza) Start:09-May-2019 Instruction Type:Patient Education How to access health informa tion online - Detail Indication:Need for prophylactic vaccination and inoculation against influenza (Renamed from Need for immunization against influenza) Start:09-May-2019 Instruction Type:Patient Education Patient Instructions Indication:Need for prophylactic vaccination and inoculation against influenza (Renamed from Need for immunization against influenza) Start:09-May-2019 Instruction Type:Provider Instructions for Treatment How to access health informa tion online Indication:Non-smoker Start:18-Apr-2019 Instruction Type:Patient Education How to access health informa tion online - Detail Indication:Non-smoker Start:18-Apr-2019 Instruction Type:Patient Education Patient Instructions Indication:Non-smoker Start:18-Apr-2019 Instruction Type:Provider Instructions for Treatment How to access health informa tion online Indication:Non-smoker Start:03-Mar-2019 Instruction Type:Patient Education How to access health informa tion online - Detail Indication:Non-smoker Start:03-Mar-2019 Instruction Type:Patient Education Patient Instructions Indication:Non-smoker Start:03-Mar-2019 Instruction Type:Provider Instructions for Treatment How to access health informa tion online Indication:Non-smoker Start:17-Jan-2019 Instruction Type:Patient Education How to access health informa tion online - Detail Indication:Non-smoker Start:17-Jan-2019 Instruction Type:Patient Education Patient Instructions Indication:Non-smoker Start:17-Jan-2019 Instruction Type:Provider Instructions for Treatment How to access health informa tion online Indication:Non-smoker Start:15-Jul-2018 Instruction Type:Patient Education How to access health informa tion online - Detail Indication:Non-smoker Start:15-Jul-2018 Instruction Type:Patient Education Patient Instructions Indication:Non-smoker Start:15-Jul-2018 Instruction Type:Provider Instructions for Treatment How to access health informa tion online Indication:Non-smoker Start:01-Feb-2018 Instruction Type:Patient Education How to access health informa tion online - Detail Indication:Non-smoker Start:01-Feb-2018 Instruction Type:Patient Education Patient Instructions Indication:Non-smoker Start:01-Feb-2018 Instruction Type:Provider Instructions for Treatment How to access health informa tion online - Detail Indication:Non-smoker Start:31-Dec-2017 Instruction Type:Patient Education How to access health informa tion online Indication:Non-smoker Start:31-Dec-2017 Instruction Type:Patient Education Patient Instructions Indication:Non-smoker Start:31-Dec-2017 Instruction Type:Provider Instructions for Treatment How to access health informa tion online Indication:Non-smoker Start:15-Sep-2017 Instruction Type:Patient Education How to access health informa tion online - Detail Indication:Non-smoker Start:15-Sep-2017 Instruction Type:Patient Education Patient Instructions Indication:Non-smoker Start:15-Sep-2017 Instruction Type:Provider Instructions for Treatment How to access health informa tion online Indication:BMI 30.0-30.9,adult Start:04-Sep-2017 Instruction Type:Patient Education How to access health informa tion online - Detail Indication:BMI 30.0-30.9,adult Start:04-Sep-2017 Instruction Type:Patient Education Patient Instructions Indication:BMI 30.0-30.9,adult Start:04-Sep-2017 Instruction Type:Provider Instructions for Treatment Name Dates Details How to access health informa tion online Indication:Non-smoker Start:23-Feb-2020 Instruction Type:Patient Education How to access health informa tion online - Detail Indication:Non-smoker Start:23-Feb-2020 Instruction Type:Patient Education Patient Instructions Indication:Non-smoker Start:23-Feb-2020 Instruction Type:Provider Instructions for Treatment How to access health informa tion online Indication:BMI 26.0-26.9,adult Start:18-Jan-2020 Instruction Type:Patient Education How to access health informa tion online - Detail Indication:BMI 26.0-26.9,adult Start:18-Jan-2020 Instruction Type:Patient Education Patient Instructions Indication:BMI 26.0-26.9,adult Start:18-Jan-2020 Instruction Type:Provider Instructions for Treatment How to access health informa tion online Indication:BMI 26.0-26.9,adult Start:18-Jul-2019 Instruction Type:Patient Education How to access health informa tion online - Detail Indication:BMI 26.0-26.9,adult Start:18-Jul-2019 Instruction Type:Patient Education Patient Instructions Indication:BMI 26.0-26.9,adult Start:18-Jul-2019 Instruction Type:Provider Instructions for Treatment How to access health informa tion online Indication:Need for prophylactic vaccination and inoculation against influenza (Renamed from Need for immunization against influenza) Start:09-May-2019 Instruction Type:Patient Education How to access health informa tion online - Detail Indication:Need for prophylactic vaccination and inoculation against influenza (Renamed from Need for immunization against influenza) Start:09-May-2019 Instruction Type:Patient Education Patient Instructions Indication:Need for prophylactic vaccination and inoculation against influenza (Renamed from Need for immunization against influenza) Start:09-May-2019 Instruction Type:Provider Instructions for Treatment How to access health informa tion online Indication:Non-smoker Start:18-Apr-2019 Instruction Type:Patient Education How to access health informa tion online - Detail Indication:Non-smoker Start:18-Apr-2019 Instruction Type:Patient Education Patient Instructions Indication:Non-smoker Start:18-Apr-2019 Instruction Type:Provider Instructions for Treatment How to access health informa tion online Indication:Non-smoker Start:03-Mar-2019 Instruction Type:Patient Education How to access health informa tion online - Detail Indication:Non-smoker Start:03-Mar-2019 Instruction Type:Patient Education Patient Instructions Indication:Non-smoker Start:03-Mar-2019 Instruction Type:Provider Instructions for Treatment How to access health informa tion online Indication:Non-smoker Start:17-Jan-2019 Instruction Type:Patient Education How to access health informa tion online - Detail Indication:Non-smoker Start:17-Jan-2019 Instruction Type:Patient Education Patient Instructions Indication:Non-smoker Start:17-Jan-2019 Instruction Type:Provider Instructions for Treatment How to access health informa tion online Indication:Non-smoker Start:15-Jul-2018 Instruction Type:Patient Education How to access health informa tion online - Detail Indication:Non-smoker Start:15-Jul-2018 Instruction Type:Patient Education Patient Instructions Indication:Non-smoker Start:15-Jul-2018 Instruction Type:Provider Instructions for Treatment How to access health informa tion online Indication:Non-smoker Start:01-Feb-2018 Instruction Type:Patient Education How to access health informa tion online - Detail Indication:Non-smoker Start:01-Feb-2018 Instruction Type:Patient Education Patient Instructions Indication:Non-smoker Start:01-Feb-2018 Instruction Type:Provider Instructions for Treatment How to access health informa tion online - Detail Indication:Non-smoker Start:31-Dec-2017 Instruction Type:Patient Education How to access health informa tion online Indication:Non-smoker Start:31-Dec-2017 Instruction Type:Patient Education Patient Instructions Indication:Non-smoker Start:31-Dec-2017 Instruction Type:Provider Instructions for Treatment How to access health informa tion online Indication:Non-smoker Start:15-Sep-2017 Instruction Type:Patient Education How to access health informa tion online - Detail Indication:Non-smoker Start:15-Sep-2017 Instruction Type:Patient Education Patient Instructions Indication:Non-smoker Start:15-Sep-2017 Instruction Type:Provider Instructions for Treatment How to access health informa tion online Indication:BMI 30.0-30.9,adult Start:04-Sep-2017 Instruction Type:Patient Education How to access health informa tion online - Detail Indication:BMI 30.0-30.9,adult Start:04-Sep-2017 Instruction Type:Patient Education Patient Instructions Indication:BMI 30.0-30.9,adult Start:04-Sep-2017 Instruction Type:Provider Instructions for Treatment Name Dates Details How to access health informa tion online Indication:Non-smoker Start:23-Feb-2020 Instruction Type:Patient Education How to access health informa tion online - Detail Indication:Non-smoker Start:23-Feb-2020 Instruction Type:Patient Education Patient Instructions Indication:Non-smoker Start:23-Feb-2020 Instruction Type:Provider Instructions for Treatment How to access health informa tion online Indication:BMI 26.0-26.9,adult Start:18-Jan-2020 Instruction Type:Patient Education How to access health informa tion online - Detail Indication:BMI 26.0-26.9,adult Start:18-Jan-2020 Instruction Type:Patient Education Patient Instructions Indication:BMI 26.0-26.9,adult Start:18-Jan-2020 Instruction Type:Provider Instructions for Treatment How to access health informa tion online Indication:BMI 26.0-26.9,adult Start:18-Jul-2019 Instruction Type:Patient Education How to access health informa tion online - Detail Indication:BMI 26.0-26.9,adult Start:18-Jul-2019 Instruction Type:Patient Education Patient Instructions Indication:BMI 26.0-26.9,adult Start:18-Jul-2019 Instruction Type:Provider Instructions for Treatment How to access health informa tion online Indication:Need for prophylactic vaccination and inoculation against influenza (Renamed from Need for immunization against influenza) Start:09-May-2019 Instruction Type:Patient Education How to access health informa tion online - Detail Indication:Need for prophylactic vaccination and inoculation against influenza (Renamed from Need for immunization against influenza) Start:09-May-2019 Instruction Type:Patient Education Patient Instructions Indication:Need for prophylactic vaccination and inoculation against influenza (Renamed from Need for immunization against influenza) Start:09-May-2019 Instruction Type:Provider Instructions for Treatment How to access health informa tion online Indication:Non-smoker Start:18-Apr-2019 Instruction Type:Patient Education How to access health informa tion online - Detail Indication:Non-smoker Start:18-Apr-2019 Instruction Type:Patient Education Patient Instructions Indication:Non-smoker Start:18-Apr-2019 Instruction Type:Provider Instructions for Treatment How to access health informa tion online Indication:Non-smoker Start:03-Mar-2019 Instruction Type:Patient Education How to access health informa tion online - Detail Indication:Non-smoker Start:03-Mar-2019 Instruction Type:Patient Education Patient Instructions Indication:Non-smoker Start:03-Mar-2019 Instruction Type:Provider Instructions for Treatment How to access health informa tion online Indication:Non-smoker Start:17-Jan-2019 Instruction Type:Patient Education How to access health informa tion online - Detail Indication:Non-smoker Start:17-Jan-2019 Instruction Type:Patient Education Patient Instructions Indication:Non-smoker Start:17-Jan-2019 Instruction Type:Provider Instructions for Treatment How to access health informa tion online Indication:Non-smoker Start:15-Jul-2018 Instruction Type:Patient Education How to access health informa tion online - Detail Indication:Non-smoker Start:15-Jul-2018 Instruction Type:Patient Education Patient Instructions Indication:Non-smoker Start:15-Jul-2018 Instruction Type:Provider Instructions for Treatment How to access health informa tion online Indication:Non-smoker Start:01-Feb-2018 Instruction Type:Patient Education How to access health informa tion online - Detail Indication:Non-smoker Start:01-Feb-2018 Instruction Type:Patient Education Patient Instructions Indication:Non-smoker Start:01-Feb-2018 Instruction Type:Provider Instructions for Treatment How to access health informa tion online - Detail Indication:Non-smoker Start:31-Dec-2017 Instruction Type:Patient Education How to access health informa tion online Indication:Non-smoker Start:31-Dec-2017 Instruction Type:Patient Education Patient Instructions Indication:Non-smoker Start:31-Dec-2017 Instruction Type:Provider Instructions for Treatment How to access health informa tion online Indication:Non-smoker Start:15-Sep-2017 Instruction Type:Patient Education How to access health informa tion online - Detail Indication:Non-smoker Start:15-Sep-2017 Instruction Type:Patient Education Patient Instructions Indication:Non-smoker Start:15-Sep-2017 Instruction Type:Provider Instructions for Treatment How to access health informa tion online Indication:BMI 30.0-30.9,adult Start:04-Sep-2017 Instruction Type:Patient Education How to access health informa tion online - Detail Indication:BMI 30.0-30.9,adult Start:04-Sep-2017 Instruction Type:Patient Education Patient Instructions Indication:BMI 30.0-30.9,adult Start:04-Sep-2017 Instruction Type:Provider Instructions for Treatment Name Dates Details Patient Instructions Indication:Non-smoker Start:23-Jul-2020 Instruction Type:Provider Instructions for Treatment How to Access Health Informa tion Online using Patient Portal and [employer] Apps Indication:Non-smoker Start:23-Jul-2020 Instruction Type:Patient Education How to access health informa tion online Indication:Non-smoker Start:23-Feb-2020 Instruction Type:Patient Education How to access health informa tion online - Detail Indication:Non-smoker Start:23-Feb-2020 Instruction Type:Patient Education Patient Instructions Indication:Non-smoker Start:23-Feb-2020 Instruction Type:Provider Instructions for Treatment How to access health informa tion online Indication:BMI 26.0-26.9,adult Start:18-Jan-2020 Instruction Type:Patient Education How to access health informa tion online - Detail Indication:BMI 26.0-26.9,adult Start:18-Jan-2020 Instruction Type:Patient Education Patient Instructions Indication:BMI 26.0-26.9,adult Start:18-Jan-2020 Instruction Type:Provider Instructions for Treatment How to access health informa tion online Indication:BMI 26.0-26.9,adult Start:18-Jul-2019 Instruction Type:Patient Education How to access health informa tion online - Detail Indication:BMI 26.0-26.9,adult Start:18-Jul-2019 Instruction Type:Patient Education Patient Instructions Indication:BMI 26.0-26.9,adult Start:18-Jul-2019 Instruction Type:Provider Instructions for Treatment How to access health informa tion online Indication:Need for prophylactic vaccination and inoculation against influenza (Renamed from Need for immunization against influenza) Start:09-May-2019 Instruction Type:Patient Education How to access health informa tion online - Detail Indication:Need for prophylactic vaccination and inoculation against influenza (Renamed from Need for immunization against influenza) Start:09-May-2019 Instruction Type:Patient Education Patient Instructions Indication:Need for prophylactic vaccination and inoculation against influenza (Renamed from Need for immunization against influenza) Start:09-May-2019 Instruction Type:Provider Instructions for Treatment How to access health informa tion online Indication:Non-smoker Start:18-Apr-2019 Instruction Type:Patient Education How to access health informa tion online - Detail Indication:Non-smoker Start:18-Apr-2019 Instruction Type:Patient Education Patient Instructions Indication:Non-smoker Start:18-Apr-2019 Instruction Type:Provider Instructions for Treatment How to access health informa tion online Indication:Non-smoker Start:03-Mar-2019 Instruction Type:Patient Education How to access health informa tion online - Detail Indication:Non-smoker Start:03-Mar-2019 Instruction Type:Patient Education Patient Instructions Indication:Non-smoker Start:03-Mar-2019 Instruction Type:Provider Instructions for Treatment How to access health informa tion online Indication:Non-smoker Start:17-Jan-2019 Instruction Type:Patient Education How to access health informa tion online - Detail Indication:Non-smoker Start:17-Jan-2019 Instruction Type:Patient Education Patient Instructions Indication:Non-smoker Start:17-Jan-2019 Instruction Type:Provider Instructions for Treatment How to access health informa tion online Indication:Non-smoker Start:15-Jul-2018 Instruction Type:Patient Education How to access health informa tion online - Detail Indication:Non-smoker Start:15-Jul-2018 Instruction Type:Patient Education Patient Instructions Indication:Non-smoker Start:15-Jul-2018 Instruction Type:Provider Instructions for Treatment How to access health informa tion online Indication:Non-smoker Start:01-Feb-2018 Instruction Type:Patient Education How to access health informa tion online - Detail Indication:Non-smoker Start:01-Feb-2018 Instruction Type:Patient Education Patient Instructions Indication:Non-smoker Start:01-Feb-2018 Instruction Type:Provider Instructions for Treatment How to access health informa tion online - Detail Indication:Non-smoker Start:31-Dec-2017 Instruction Type:Patient Education How to access health informa tion online Indication:Non-smoker Start:31-Dec-2017 Instruction Type:Patient Education Patient Instructions Indication:Non-smoker Start:31-Dec-2017 Instruction Type:Provider Instructions for Treatment How to access health informa tion online Indication:Non-smoker Start:15-Sep-2017 Instruction Type:Patient Education How to access health informa tion online - Detail Indication:Non-smoker Start:15-Sep-2017 Instruction Type:Patient Education Patient Instructions Indication:Non-smoker Start:15-Sep-2017 Instruction Type:Provider Instructions for Treatment How to access health informa tion online Indication:BMI 30.0-30.9,adult Start:04-Sep-2017 Instruction Type:Patient Education How to access health informa tion online - Detail Indication:BMI 30.0-30.9,adult Start:04-Sep-2017 Instruction Type:Patient Education Patient Instructions Indication:BMI 30.0-30.9,adult Start:04-Sep-2017 Instruction Type:Provider Instructions for Treatment Name Dates Details Patient Instructions Indication:Non-smoker Start:23-Jul-2020 Instruction Type:Provider Instructions for Treatment How to Access Health Informa tion Online using Patient Portal and [employer] Apps Indication:Non-smoker Start:23-Jul-2020 Instruction Type:Patient Education How to access health informa tion online Indication:Non-smoker Start:23-Feb-2020 Instruction Type:Patient Education How to access health informa tion online - Detail Indication:Non-smoker Start:23-Feb-2020 Instruction Type:Patient Education Patient Instructions Indication:Non-smoker Start:23-Feb-2020 Instruction Type:Provider Instructions for Treatment How to access health informa tion online Indication:BMI 26.0-26.9,adult Start:18-Jan-2020 Instruction Type:Patient Education How to access health informa tion online - Detail Indication:BMI 26.0-26.9,adult Start:18-Jan-2020 Instruction Type:Patient Education Patient Instructions Indication:BMI 26.0-26.9,adult Start:18-Jan-2020 Instruction Type:Provider Instructions for Treatment How to access health informa tion online Indication:BMI 26.0-26.9,adult Start:18-Jul-2019 Instruction Type:Patient Education How to access health informa tion online - Detail Indication:BMI 26.0-26.9,adult Start:18-Jul-2019 Instruction Type:Patient Education Patient Instructions Indication:BMI 26.0-26.9,adult Start:18-Jul-2019 Instruction Type:Provider Instructions for Treatment How to access health informa tion online Indication:Need for prophylactic vaccination and inoculation against influenza (Renamed from Need for immunization against influenza) Start:09-May-2019 Instruction Type:Patient Education How to access health informa tion online - Detail Indication:Need for prophylactic vaccination and inoculation against influenza (Renamed from Need for immunization against influenza) Start:09-May-2019 Instruction Type:Patient Education Patient Instructions Indication:Need for prophylactic vaccination and inoculation against influenza (Renamed from Need for immunization against influenza) Start:09-May-2019 Instruction Type:Provider Instructions for Treatment How to access health informa tion online Indication:Non-smoker Start:18-Apr-2019 Instruction Type:Patient Education How to access health informa tion online - Detail Indication:Non-smoker Start:18-Apr-2019 Instruction Type:Patient Education Patient Instructions Indication:Non-smoker Start:18-Apr-2019 Instruction Type:Provider Instructions for Treatment How to access health informa tion online Indication:Non-smoker Start:03-Mar-2019 Instruction Type:Patient Education How to access health informa tion online - Detail Indication:Non-smoker Start:03-Mar-2019 Instruction Type:Patient Education Patient Instructions Indication:Non-smoker Start:03-Mar-2019 Instruction Type:Provider Instructions for Treatment How to access health informa tion online Indication:Non-smoker Start:17-Jan-2019 Instruction Type:Patient Education How to access health informa tion online - Detail Indication:Non-smoker Start:17-Jan-2019 Instruction Type:Patient Education Patient Instructions Indication:Non-smoker Start:17-Jan-2019 Instruction Type:Provider Instructions for Treatment How to access health informa tion online Indication:Non-smoker Start:15-Jul-2018 Instruction Type:Patient Education How to access health informa tion online - Detail Indication:Non-smoker Start:15-Jul-2018 Instruction Type:Patient Education Patient Instructions Indication:Non-smoker Start:15-Jul-2018 Instruction Type:Provider Instructions for Treatment How to access health informa tion online Indication:Non-smoker Start:01-Feb-2018 Instruction Type:Patient Education How to access health informa tion online - Detail Indication:Non-smoker Start:01-Feb-2018 Instruction Type:Patient Education Patient Instructions Indication:Non-smoker Start:01-Feb-2018 Instruction Type:Provider Instructions for Treatment How to access health informa tion online - Detail Indication:Non-smoker Start:31-Dec-2017 Instruction Type:Patient Education How to access health informa tion online Indication:Non-smoker Start:31-Dec-2017 Instruction Type:Patient Education Patient Instructions Indication:Non-smoker Start:31-Dec-2017 Instruction Type:Provider Instructions for Treatment How to access health informa tion online Indication:Non-smoker Start:15-Sep-2017 Instruction Type:Patient Education How to access health informa tion online - Detail Indication:Non-smoker Start:15-Sep-2017 Instruction Type:Patient Education Patient Instructions Indication:Non-smoker Start:15-Sep-2017 Instruction Type:Provider Instructions for Treatment How to access health informa tion online Indication:BMI 30.0-30.9,adult Start:04-Sep-2017 Instruction Type:Patient Education How to access health informa tion online - Detail Indication:BMI 30.0-30.9,adult Start:04-Sep-2017 Instruction Type:Patient Education Patient Instructions Indication:BMI 30.0-30.9,adult Start:04-Sep-2017 Instruction Type:Provider Instructions for Treatment Name Dates Details How to access health informa tion online Indication:Non-smoker Start:15-Jul-2018 Instruction Type:Patient Education How to access health informa tion online - Detail Indication:Non-smoker Start:15-Jul-2018 Instruction Type:Patient Education Patient Instructions Indication:Non-smoker Start:15-Jul-2018 Instruction Type:Provider Instructions for Treatment How to access health informa tion online Indication:Non-smoker Start:01-Feb-2018 Instruction Type:Patient Education How to access health informa tion online - Detail Indication:Non-smoker Start:01-Feb-2018 Instruction Type:Patient Education Patient Instructions Indication:Non-smoker Start:01-Feb-2018 Instruction Type:Provider Instructions for Treatment How to access health informa tion online - Detail Indication:Non-smoker Start:31-Dec-2017 Instruction Type:Patient Education How to access health informa tion online Indication:Non-smoker Start:31-Dec-2017 Instruction Type:Patient Education Patient Instructions Indication:Non-smoker Start:31-Dec-2017 Instruction Type:Provider Instructions for Treatment How to access health informa tion online Indication:Non-smoker Start:15-Sep-2017 Instruction Type:Patient Education How to access health informa tion online - Detail Indication:Non-smoker Start:15-Sep-2017 Instruction Type:Patient Education Patient Instructions Indication:Non-smoker Start:15-Sep-2017 Instruction Type:Provider Instructions for Treatment How to access health informa tion online Indication:BMI 30.0-30.9,adult Start:04-Sep-2017 Instruction Type:Patient Education How to access health informa tion online - Detail Indication:BMI 30.0-30.9,adult Start:04-Sep-2017 Instruction Type:Patient Education Patient Instructions Indication:BMI 30.0-30.9,adult Start:04-Sep-2017 Instruction Type:Provider Instructions for Treatment Name Dates Details How to access health informa tion online Indication:Non-smoker Start:18-Apr-2019 Instruction Type:Patient Education How to access health informa tion online - Detail Indication:Non-smoker Start:18-Apr-2019 Instruction Type:Patient Education Patient Instructions Indication:Non-smoker Start:18-Apr-2019 Instruction Type:Provider Instructions for Treatment How to access health informa tion online Indication:Non-smoker Start:03-Mar-2019 Instruction Type:Patient Education How to access health informa tion online - Detail Indication:Non-smoker Start:03-Mar-2019 Instruction Type:Patient Education Patient Instructions Indication:Non-smoker Start:03-Mar-2019 Instruction Type:Provider Instructions for Treatment How to access health informa tion online Indication:Non-smoker Start:17-Jan-2019 Instruction Type:Patient Education How to access health informa tion online - Detail Indication:Non-smoker Start:17-Jan-2019 Instruction Type:Patient Education Patient Instructions Indication:Non-smoker Start:17-Jan-2019 Instruction Type:Provider Instructions for Treatment How to access health informa tion online Indication:Non-smoker Start:15-Jul-2018 Instruction Type:Patient Education How to access health informa tion online - Detail Indication:Non-smoker Start:15-Jul-2018 Instruction Type:Patient Education Patient Instructions Indication:Non-smoker Start:15-Jul-2018 Instruction Type:Provider Instructions for Treatment How to access health informa tion online Indication:Non-smoker Start:01-Feb-2018 Instruction Type:Patient Education How to access health informa tion online - Detail Indication:Non-smoker Start:01-Feb-2018 Instruction Type:Patient Education Patient Instructions Indication:Non-smoker Start:01-Feb-2018 Instruction Type:Provider Instructions for Treatment How to access health informa tion online - Detail Indication:Non-smoker Start:31-Dec-2017 Instruction Type:Patient Education How to access health informa tion online Indication:Non-smoker Start:31-Dec-2017 Instruction Type:Patient Education Patient Instructions Indication:Non-smoker Start:31-Dec-2017 Instruction Type:Provider Instructions for Treatment How to access health informa tion online Indication:Non-smoker Start:15-Sep-2017 Instruction Type:Patient Education How to access health informa tion online - Detail Indication:Non-smoker Start:15-Sep-2017 Instruction Type:Patient Education Patient Instructions Indication:Non-smoker Start:15-Sep-2017 Instruction Type:Provider Instructions for Treatment How to access health informa tion online Indication:BMI 30.0-30.9,adult Start:04-Sep-2017 Instruction Type:Patient Education How to access health informa tion online - Detail Indication:BMI 30.0-30.9,adult Start:04-Sep-2017 Instruction Type:Patient Education Patient Instructions Indication:BMI 30.0-30.9,adult Start:04-Sep-2017 Instruction Type:Provider Instructions for Treatment Name Dates Details Patient Instructions Indication:Non-smoker Start:23-Jul-2020 Instruction Type:Provider Instructions for Treatment How to Access Health Informa tion Online using Patient Portal and [employer] Apps Indication:Non-smoker Start:23-Jul-2020 Instruction Type:Patient Education How to access health informa tion online Indication:Non-smoker Start:23-Feb-2020 Instruction Type:Patient Education How to access health informa tion online - Detail Indication:Non-smoker Start:23-Feb-2020 Instruction Type:Patient Education Patient Instructions Indication:Non-smoker Start:23-Feb-2020 Instruction Type:Provider Instructions for Treatment How to access health informa tion online Indication:BMI 26.0-26.9,adult Start:18-Jan-2020 Instruction Type:Patient Education How to access health informa tion online - Detail Indication:BMI 26.0-26.9,adult Start:18-Jan-2020 Instruction Type:Patient Education Patient Instructions Indication:BMI 26.0-26.9,adult Start:18-Jan-2020 Instruction Type:Provider Instructions for Treatment How to access health informa tion online Indication:BMI 26.0-26.9,adult Start:18-Jul-2019 Instruction Type:Patient Education How to access health informa tion online - Detail Indication:BMI 26.0-26.9,adult Start:18-Jul-2019 Instruction Type:Patient Education Patient Instructions Indication:BMI 26.0-26.9,adult Start:18-Jul-2019 Instruction Type:Provider Instructions for Treatment How to access health informa tion online Indication:Need for prophylactic vaccination and inoculation against influenza (Renamed from Need for immunization against influenza) Start:09-May-2019 Instruction Type:Patient Education How to access health informa tion online - Detail Indication:Need for prophylactic vaccination and inoculation against influenza (Renamed from Need for immunization against influenza) Start:09-May-2019 Instruction Type:Patient Education Patient Instructions Indication:Need for prophylactic vaccination and inoculation against influenza (Renamed from Need for immunization against influenza) Start:09-May-2019 Instruction Type:Provider Instructions for Treatment How to access health informa tion online Indication:Non-smoker Start:18-Apr-2019 Instruction Type:Patient Education How to access health informa tion online - Detail Indication:Non-smoker Start:18-Apr-2019 Instruction Type:Patient Education Patient Instructions Indication:Non-smoker Start:18-Apr-2019 Instruction Type:Provider Instructions for Treatment How to access health informa tion online Indication:Non-smoker Start:03-Mar-2019 Instruction Type:Patient Education How to access health informa tion online - Detail Indication:Non-smoker Start:03-Mar-2019 Instruction Type:Patient Education Patient Instructions Indication:Non-smoker Start:03-Mar-2019 Instruction Type:Provider Instructions for Treatment How to access health informa tion online Indication:Non-smoker Start:17-Jan-2019 Instruction Type:Patient Education How to access health informa tion online - Detail Indication:Non-smoker Start:17-Jan-2019 Instruction Type:Patient Education Patient Instructions Indication:Non-smoker Start:17-Jan-2019 Instruction Type:Provider Instructions for Treatment How to access health informa tion online Indication:Non-smoker Start:15-Jul-2018 Instruction Type:Patient Education How to access health informa tion online - Detail Indication:Non-smoker Start:15-Jul-2018 Instruction Type:Patient Education Patient Instructions Indication:Non-smoker Start:15-Jul-2018 Instruction Type:Provider Instructions for Treatment How to access health informa tion online Indication:Non-smoker Start:01-Feb-2018 Instruction Type:Patient Education How to access health informa tion online - Detail Indication:Non-smoker Start:01-Feb-2018 Instruction Type:Patient Education Patient Instructions Indication:Non-smoker Start:01-Feb-2018 Instruction Type:Provider Instructions for Treatment How to access health informa tion online - Detail Indication:Non-smoker Start:31-Dec-2017 Instruction Type:Patient Education How to access health informa tion online Indication:Non-smoker Start:31-Dec-2017 Instruction Type:Patient Education Patient Instructions Indication:Non-smoker Start:31-Dec-2017 Instruction Type:Provider Instructions for Treatment How to access health informa tion online Indication:Non-smoker Start:15-Sep-2017 Instruction Type:Patient Education How to access health informa tion online - Detail Indication:Non-smoker Start:15-Sep-2017 Instruction Type:Patient Education Patient Instructions Indication:Non-smoker Start:15-Sep-2017 Instruction Type:Provider Instructions for Treatment How to access health informa tion online Indication:BMI 30.0-30.9,adult Start:04-Sep-2017 Instruction Type:Patient Education How to access health informa tion online - Detail Indication:BMI 30.0-30.9,adult Start:04-Sep-2017 Instruction Type:Patient Education Patient Instructions Indication:BMI 30.0-30.9,adult Start:04-Sep-2017 Instruction Type:Provider Instructions for Treatment Name Dates Details Non-smoker : How to access h ealth information online Indication:Non-smoker Non-smoker : How to access h ealth information online - Detail Indication:Non-smoker Non-smoker : Patient Instruc tions Indication:Non-smoker BMI 30.0-30.9,adult : How to access health information online Indication:BMI 30.0-30.9,adult BMI 30.0-30.9,adult : How to access health information online - Detail Indication:BMI 30.0-30.9,adult BMI 30.0-30.9,adult : Patien t Instructions Indication:BMI 30.0-30.9,adult Name Dates Details Patient Instructions Indication:Non-smoker Start:23-Oct-2020 Instruction Type:Provider Instructions for Treatment How to Access Health Informa tion Online using Patient Portal and [employer] Apps Indication:Non-smoker Start:23-Oct-2020 Instruction Type:Patient Education Patient Instructions Indication:Non-smoker Start:23-Jul-2020 Instruction Type:Provider Instructions for Treatment How to Access Health Informa tion Online using Patient Portal and [employer] Apps Indication:Non-smoker Start:23-Jul-2020 Instruction Type:Patient Education How to access health informa tion online Indication:Non-smoker Start:23-Feb-2020 Instruction Type:Patient Education How to access health informa tion online - Detail Indication:Non-smoker Start:23-Feb-2020 Instruction Type:Patient Education Patient Instructions Indication:Non-smoker Start:23-Feb-2020 Instruction Type:Provider Instructions for Treatment How to access health informa tion online Indication:BMI 26.0-26.9,adult Start:18-Jan-2020 Instruction Type:Patient Education How to access health informa tion online - Detail Indication:BMI 26.0-26.9,adult Start:18-Jan-2020 Instruction Type:Patient Education Patient Instructions Indication:BMI 26.0-26.9,adult Start:18-Jan-2020 Instruction Type:Provider Instructions for Treatment How to access health informa tion online Indication:BMI 26.0-26.9,adult Start:18-Jul-2019 Instruction Type:Patient Education How to access health informa tion online - Detail Indication:BMI 26.0-26.9,adult Start:18-Jul-2019 Instruction Type:Patient Education Patient Instructions Indication:BMI 26.0-26.9,adult Start:18-Jul-2019 Instruction Type:Provider Instructions for Treatment How to access health informa tion online Indication:Need for prophylactic vaccination and inoculation against influenza (Renamed from Need for immunization against influenza) Start:09-May-2019 Instruction Type:Patient Education How to access health informa tion online - Detail Indication:Need for prophylactic vaccination and inoculation against influenza (Renamed from Need for immunization against influenza) Start:09-May-2019 Instruction Type:Patient Education Patient Instructions Indication:Need for prophylactic vaccination and inoculation against influenza (Renamed from Need for immunization against influenza) Start:09-May-2019 Instruction Type:Provider Instructions for Treatment How to access health informa tion online Indication:Non-smoker Start:18-Apr-2019 Instruction Type:Patient Education How to access health informa tion online - Detail Indication:Non-smoker Start:18-Apr-2019 Instruction Type:Patient Education Patient Instructions Indication:Non-smoker Start:18-Apr-2019 Instruction Type:Provider Instructions for Treatment How to access health informa tion online Indication:Non-smoker Start:03-Mar-2019 Instruction Type:Patient Education How to access health informa tion online - Detail Indication:Non-smoker Start:03-Mar-2019 Instruction Type:Patient Education Patient Instructions Indication:Non-smoker Start:03-Mar-2019 Instruction Type:Provider Instructions for Treatment How to access health informa tion online Indication:Non-smoker Start:17-Jan-2019 Instruction Type:Patient Education How to access health informa tion online - Detail Indication:Non-smoker Start:17-Jan-2019 Instruction Type:Patient Education Patient Instructions Indication:Non-smoker Start:17-Jan-2019 Instruction Type:Provider Instructions for Treatment How to access health informa tion online Indication:Non-smoker Start:15-Jul-2018 Instruction Type:Patient Education How to access health informa tion online - Detail Indication:Non-smoker Start:15-Jul-2018 Instruction Type:Patient Education Patient Instructions Indication:Non-smoker Start:15-Jul-2018 Instruction Type:Provider Instructions for Treatment How to access health informa tion online Indication:Non-smoker Start:01-Feb-2018 Instruction Type:Patient Education How to access health informa tion online - Detail Indication:Non-smoker Start:01-Feb-2018 Instruction Type:Patient Education Patient Instructions Indication:Non-smoker Start:01-Feb-2018 Instruction Type:Provider Instructions for Treatment How to access health informa tion online - Detail Indication:Non-smoker Start:31-Dec-2017 Instruction Type:Patient Education How to access health informa tion online Indication:Non-smoker Start:31-Dec-2017 Instruction Type:Patient Education Patient Instructions Indication:Non-smoker Start:31-Dec-2017 Instruction Type:Provider Instructions for Treatment How to access health informa tion online Indication:Non-smoker Start:15-Sep-2017 Instruction Type:Patient Education How to access health informa tion online - Detail Indication:Non-smoker Start:15-Sep-2017 Instruction Type:Patient Education Patient Instructions Indication:Non-smoker Start:15-Sep-2017 Instruction Type:Provider Instructions for Treatment How to access health informa tion online Indication:BMI 30.0-30.9,adult Start:04-Sep-2017 Instruction Type:Patient Education How to access health informa tion online - Detail Indication:BMI 30.0-30.9,adult Start:04-Sep-2017 Instruction Type:Patient Education Patient Instructions Indication:BMI 30.0-30.9,adult Start:04-Sep-2017 Instruction Type:Provider Instructions for Treatment Medications Administered Section Inactive Administered Medications - up to 3 most recent administrations Medication Order MAR Action Action Date Dose Rate Site lidocaine (PF) 10 mg/mL (1 %) 3 mL injection (XYLOCAINE) 3 mL, Injection - FOR ORTHO USE ONLY, ONE TIME INJECTION, 1 dose, Starting on [place] 05/01/22 at 1120, Until [place] 05/01/22 at 1120 Given 05/01/2022 11:20 AM EDT 3 mL Knee, Right Active Administered Medications - up to 3 most recent administrations Medication Order MAR Action Action Date Dose Rate Site vancomycin HCl in 5 % dextrose (VANCOMYCIN HCL IN DEXTROSE) 1 gram/250 mL soln Inject 1 g intravenously q 12 HR., Home [facility] Historical Meds Given 05/18/2022 3:06 PM EDT 1 g Active Administered Medications - up to 3 most recent administrations Medication Order MAR Action Action Date Dose Rate Site sodium chloride (NaCl) 0.9% injection solution Inject 10-30 mL intravenously as directed. Flush PICC with 10cc before and after infusion, 10cc before blood work, 20cc after blood work and 30cc for sluggish line., Home [facility] Historical Meds Given 05/19/2022 10:31 AM EDT 30 mL Arm, Right Active Administered Medications - up to 3 most recent administrations Medication Order MAR Action Action Date Dose Rate Site vancomycin HCl in 5 % dextrose (VANCOMYCIN HCL IN DEXTROSE) 1 gram/250 mL soln Inject 1 g intravenously q 12 HR., Home Health Historical Meds Given 05/19/2022 8:30 PM EDT 1 g Active Administered Medications - up to 3 most recent administrations Medication Order MAR Action Action Date Dose Rate Site sodium chloride 0.9 %, flush, (0.9% NACL) 3 mL syrg Inject 2-10 mL intravenously as directed. Flush before and after each dose with 10 mL. Flush unused lumens with 10 mL daily., Flush before blood draws with 10 mL and after blood draws with 20 mL., [facility] Historical Meds Given 05/26/2022 8:41 AM EDT 30 mL Arm, Right vancomycin (VANCOCIN) 1.25 gram/250 mL in dextrose 5% Inject 250 mL intravenously every 12 hours. Vancomycin 1.25gm IV every 12 hours Infuse over 3 hours via [facility] to mix as minibag in 250mL D5W as directed by physician due to pt discomfort during infusion. Tentative stop date: 06/26/22 Weekly labs: CBC/Diff, Creatinine, Vanco trough every Thursday, Normal, [id number] mL, R-0, Vancomycin 1.25gm IV every 12 Hrs- Infuse over 3 hrs via [facility] as directed by physician due to pt discomfort during infusion. Tentative stop date: 06/26/22 Weekly labs: CBC/Diff, SCR, Vanco trough Q Mon Given 05/26/2022 8:41 AM EDT 1.25 g Arm, Right Active Administered Medications - up to 3 most recent administrations Medication Order MAR Action Action Date Dose Rate Site sodium chloride 0.9 %, flush, (0.9% NACL) 3 mL syrg Inject 2-10 mL intravenously as directed. Flush before and after each dose with 10 mL. Flush unused lumens with 10 mL daily., Flush before blood draws with 10 mL and after blood draws with 20 mL., [facility] Historical Meds Given 05/29/2022 7:55 PM EDT 30 mL Active Administered Medications - up to 3 most recent administrations Medication Order MAR Action Action Date Dose Rate Site sodium chloride 0.9 %, flush, (0.9% NACL) 3 mL syrg Inject 2-10 mL intravenously as directed. Flush before and after each dose with 10 mL. Flush unused lumens with 10 mL daily., Flush before blood draws with 10 mL and after blood draws with 20 mL., [facility] Historical Meds Given 06/02/2022 8:10 AM EST 20 mL Arm, Right Active Administered Medications - up to 3 most recent administrations Medication Order MAR Action Action Date Dose Rate Site sodium chloride 0.9 %, flush, (0.9% NACL) 3 mL syrg Inject 2-10 mL intravenously as directed. Flush before and after each dose with 10 mL. Flush unused lumens with 10 mL daily., Flush before blood draws with 10 mL and after blood draws with 20 mL., [facility] Historical Meds Given 06/12/2022 8:00 AM EST 30 mL Arm, Right Active Administered Medications - up to 3 most recent administrations Medication Order MAR Action Action Date Dose Rate Site sodium chloride 0.9 %, flush, (0.9% NACL) 3 mL syrg Inject 2-10 mL intravenously as directed. Flush before and after each dose with 10 mL. Flush unused lumens with 10 mL daily., Flush before blood draws with 10 mL and after blood draws with 20 mL., [facility] Historical Meds Given 06/16/2022 8:10 AM EST 30 mL Arm, Right Active Administered Medications - up to 3 most recent administrations Medication Order MAR Action Action Date Dose Rate Site sodium chloride 0.9 %, flush, (0.9% NACL) 3 mL syrg Inject 2-10 mL intravenously as directed. Flush before and after each dose with 10 mL. Flush unused lumens with 10 mL daily., Flush before blood draws with 10 mL and after blood draws with 20 mL., [facility] Historical Meds Given 06/21/2022 11:40 AM EST 20 mL IV Active Administered Medications - up to 3 most recent administrations Medication Order MAR Action Action Date Dose Rate Site sodium chloride 0.9 %, flush, (0.9% NACL) 3 mL syrg Inject 2-10 mL intravenously as directed. Flush before and after each dose with 10 mL. 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) Reason for Visit Atrophic vaginitis Encounter for routine gynecological examination Chief Complaint Admit Date Pain left breast/axilla February 22, 2025 11:30am Chief Complaint Admit Date Pain left breast/axilla February 22, 2025 11:30am LT BREAST PAIN March 06, 2025 8: 25am Reason for Visit Admit Date Breast pain, left February 22, 2025 11:3 0am Reason for Referral Specialty Diagnoses / Procedures Referred By Isma t Referred To Contact [facility] Diagnoses S/P revision of total knee, right Procedures CONSULT TO PHYSICAL THERAPY PHYSICAL THERAPY EVALUATION HIGH COMPLEX 45 MINS Royce Peterson PA-C [address] [place] [address] [facility] [address] [address] Referral ID Status Reason Start Date Expiration Date Visits Requested Visits Authorized [id number] Authorized PCP Requested Referral Auto-Generate d Referral 12/18/2023 12/17/[phone] Additional Source Comments INFORMATION SOURCE (unrecogn ized section and content) DATE CREATED AUTHOR 01/15/2018 [facility] DATE CREATED AUTHOR AUTHOR'S ORGANIZ ATION 10/09/2022 [facility] DATE CREATED AUTHOR AUTHOR'S ORGANIZ ATION 08/10/2024 [facility] DATE CREATED AUTHOR AUTHOR'S ORGANIZ ATION 12/02/2024 [facility] DATE CREATED AUTHOR AUTHOR'S ORGANIZ ATION 12/24/2024 [facility] DATE CREATED AUTHOR AUTHOR'S ORGANIZ ATION 05/28/2025 [facility] Source Comments (unrecognize d section and content) In the event this informatio n is protected by the Federal Confidentiality of Alcohol and Drug Abuse Patient Records regulations: The Federal rules restrict any use of the information to criminally investigate or prosecute any alcohol or drug abuse patient.[facility] HospitalIn the event this information is protected by the Federal Confidentiality of Alcohol and Drug Abuse Patient Records regulations: The Federal rules restrict any use of the information to criminally investigate or prosecute any alcohol or drug abuse patient.[facility] HospitalIn the event this information is protected by the Federal Confidentiality of Alcohol and Drug Abuse Patient Records regulations: The Federal rules restrict any use of the information to criminally investigate or prosecute any alcohol or drug abuse patient.[facility] HospitalIn the event this information is protected by the Federal Confidentiality of Alcohol and Drug Abuse Patient Records regulations: The Federal rules restrict any use of the information to criminally investigate or prosecute any alcohol or drug abuse patient.[facility] HospitalIn the event this information is protected by the Federal Confidentiality of Alcohol and Drug Abuse Patient Records regulations: The Federal rules restrict any use of the information to criminally investigate or prosecute any alcohol or drug abuse patient.[facility] HospitalIn the event this information is protected by the Federal Confidentiality of Alcohol and Drug Abuse Patient Records regulations: The Federal rules restrict any use of the information to criminally investigate or prosecute any alcohol or drug abuse patient.[facility] HospitalIn the event this information is protected by the Federal Confidentiality of Alcohol and Drug Abuse Patient Records regulations: The Federal rules restrict any use of the information to criminally investigate or prosecute any alcohol or drug abuse patient.[facility] HospitalIn the event this information is protected by the Federal Confidentiality of Alcohol and Drug Abuse Patient Records regulations: The Federal rules restrict any use of the information to criminally investigate or prosecute any alcohol or drug abuse patient.[facility] HospitalIn the event this information is protected by the Federal Confidentiality of Alcohol and Drug Abuse Patient Records regulations: The Federal rules restrict any use of the information to criminally investigate or prosecute any alcohol or drug abuse patient.[facility] HospitalIn the event this information is protected by the Federal Confidentiality of Alcohol and Drug Abuse Patient Records regulations: The Federal rules restrict any use of the information to criminally investigate or prosecute any alcohol or drug abuse patient.[facility] HospitalIn the event this information is protected by the Federal Confidentiality of Alcohol and Drug Abuse Patient Records regulations: The Federal rules restrict any use of the information to criminally investigate or prosecute any alcohol or drug abuse patient.[facility] HospitalIn the event this information is protected by the Federal Confidentiality of Alcohol and Drug Abuse Patient Records regulations: The Federal rules restrict any use of the information to criminally investigate or prosecute any alcohol or drug abuse patient.[facility] HospitalIn the event this information is protected by the Federal Confidentiality of Alcohol and Drug Abuse Patient Records regulations: The Federal rules restrict any use of the information to criminally investigate or prosecute any alcohol or drug abuse patient.[facility] HospitalIn the event this information is protected by the Federal Confidentiality of Alcohol and Drug Abuse Patient Records regulations: The Federal rules restrict any use of the information to criminally investigate or prosecute any alcohol or drug abuse patient.[facility] HospitalIn the event this information is protected by the Federal Confidentiality of Alcohol and Drug Abuse Patient Records regulations: The Federal rules restrict any use of the information to criminally investigate or prosecute any alcohol or drug abuse patient.[facility] HospitalIn the event this information is protected by the Federal Confidentiality of Alcohol and Drug Abuse Patient Records regulations: The Federal rules restrict any use of the information to criminally investigate or prosecute any alcohol or drug abuse patient.[facility] HospitalIn the event this information is protected by the Federal Confidentiality of Alcohol and Drug Abuse Patient Records regulations: The Federal rules restrict any use of the information to criminally investigate or prosecute any alcohol or drug abuse patient.[facility] HospitalIn the event this information is protected by the Federal Confidentiality of Alcohol and Drug Abuse Patient Records regulations: The Federal rules restrict any use of the information to criminally investigate or prosecute any alcohol or drug abuse patient.[facility] HospitalIn the event this information is protected by the Federal Confidentiality of Alcohol and Drug Abuse Patient Records regulations: The Federal rules restrict any use of the information to criminally investigate or prosecute any alcohol or drug abuse patient.[facility] HospitalIn the event this information is protected by the Federal Confidentiality of Alcohol and Drug Abuse Patient Records regulations: The Federal rules restrict any use of the information to criminally investigate or prosecute any alcohol or drug abuse patient.[facility] HospitalIn the event this information is protected by the Federal Confidentiality of Alcohol and Drug Abuse Patient Records regulations: The Federal rules restrict any use of the information to criminally investigate or prosecute any alcohol or drug abuse patient.[facility] HospitalIn the event this information is protected by the Federal Confidentiality of Alcohol and Drug Abuse Patient Records regulations: The Federal rules restrict any use of the information to criminally investigate or prosecute any alcohol or drug abuse patient.[facility] HospitalIn the event this information is protected by the Federal Confidentiality of Alcohol and Drug Abuse Patient Records regulations: The Federal rules restrict any use of the information to criminally investigate or prosecute any alcohol or drug abuse patient.[facility] HospitalIn the event this information is protected by the Federal Confidentiality of Alcohol and Drug Abuse Patient Records regulations: The Federal rules restrict any use of the information to criminally investigate or prosecute any alcohol or drug abuse patient.[facility] HospitalIn the event this information is protected by the Federal Confidentiality of Alcohol and Drug Abuse Patient Records regulations: The Federal rules restrict any use of the information to criminally investigate or prosecute any alcohol or drug abuse patient.[facility] HospitalIn the event this information is protected by the Federal Confidentiality of Alcohol and Drug Abuse Patient Records regulations: The Federal rules restrict any use of the information to criminally investigate or prosecute any alcohol or drug abuse patient.[facility] HospitalIn the event this information is protected by the Federal Confidentiality of Alcohol and Drug Abuse Patient Records regulations: The Federal rules restrict any use of the information to criminally investigate or prosecute any alcohol or drug abuse patient.[facility] HospitalIn the event this information is protected by the Federal Confidentiality of Alcohol and Drug Abuse Patient Records regulations: The Federal rules restrict any use of the information to criminally investigate or prosecute any alcohol or drug abuse patient.[facility] HospitalIn the event this information is protected by the Federal Confidentiality of Alcohol and Drug Abuse Patient Records regulations: The Federal rules restrict any use of the information to criminally investigate or prosecute any alcohol or drug abuse patient.[facility] HospitalIn the event this information is protected by the Federal Confidentiality of Alcohol and Drug Abuse Patient Records regulations: The Federal rules restrict any use of the information to criminally investigate or prosecute any alcohol or drug abuse patient.[facility] HospitalIn the event this information is protected by the Federal Confidentiality of Alcohol and Drug Abuse Patient Records regulations: The Federal rules restrict any use of the information to criminally investigate or prosecute any alcohol or drug abuse patient.[facility] HospitalIn the event this information is protected by the Federal Confidentiality of Alcohol and Drug Abuse Patient Records regulations: The Federal rules restrict any use of the information to criminally investigate or prosecute any alcohol or drug abuse patient.[facility] HospitalIn the event this information is protected by the Federal Confidentiality of Alcohol and Drug Abuse Patient Records regulations: The Federal rules restrict any use of the information to criminally investigate or prosecute any alcohol or drug abuse patient.[facility] HospitalIn the event this information is protected by the Federal Confidentiality of Alcohol and Drug Abuse Patient Records regulations: The Federal rules restrict any use of the information to criminally investigate or prosecute any alcohol or drug abuse patient.[facility] HospitalIn the event this information is protected by the Federal Confidentiality of Alcohol and Drug Abuse Patient Records regulations: The Federal rules restrict any use of the information to criminally investigate or prosecute any alcohol or drug abuse patient.[facility] HospitalIn the event this information is protected by the Federal Confidentiality of Alcohol and Drug Abuse Patient Records regulations: The Federal rules restrict any use of the information to criminally investigate or prosecute any alcohol or drug abuse patient.[facility] HospitalIn the event this information is protected by the Federal Confidentiality of Alcohol and Drug Abuse Patient Records regulations: The Federal rules restrict any use of the information to criminally investigate or prosecute any alcohol or drug abuse patient.[facility] HospitalIn the event this information is protected by the Federal Confidentiality of Alcohol and Drug Abuse Patient Records regulations: The Federal rules restrict any use of the information to criminally investigate or prosecute any alcohol or drug abuse patient.[facility] HospitalIn the event this information is protected by the Federal Confidentiality of Alcohol and Drug Abuse Patient Records regulations: The Federal rules restrict any use of the information to criminally investigate or prosecute any alcohol or drug abuse patient.[facility] HospitalIn the event this information is protected by the Federal Confidentiality of Alcohol and Drug Abuse Patient Records regulations: The Federal rules restrict any use of the information to criminally investigate or prosecute any alcohol or drug abuse patient.[facility] HospitalIn the event this information is protected by the Federal Confidentiality of Alcohol and Drug Abuse Patient Records regulations: The Federal rules restrict any use of the information to criminally investigate or prosecute any alcohol or drug abuse patient.[facility] HospitalIn the event this information is protected by the Federal Confidentiality of Alcohol and Drug Abuse Patient Records regulations: The Federal rules restrict any use of the information to criminally investigate or prosecute any alcohol or drug abuse patient.[facility] HospitalIn the event this information is protected by the Federal Confidentiality of Alcohol and Drug Abuse Patient Records regulations: The Federal rules restrict any use of the information to criminally investigate or prosecute any alcohol or drug abuse patient.[facility] HospitalIn the event this information is protected by the Federal Confidentiality of Alcohol and Drug Abuse Patient Records regulations: The Federal rules restrict any use of the information to criminally investigate or prosecute any alcohol or drug abuse patient.[facility] HospitalIn the event this information is protected by the Federal Confidentiality of Alcohol and Drug Abuse Patient Records regulations: The Federal rules restrict any use of the information to criminally investigate or prosecute any alcohol or drug abuse patient.[facility] HospitalIn the event this information is protected by the Federal Confidentiality of Alcohol and Drug Abuse Patient Records regulations: The Federal rules restrict any use of the information to criminally investigate or prosecute any alcohol or drug abuse patient.[facility] HospitalIn the event this information is protected by the Federal Confidentiality of Alcohol and Drug Abuse Patient Records regulations: The Federal rules restrict any use of the information to criminally investigate or prosecute any alcohol or drug abuse patient.[facility] HospitalIn the event this information is protected by the Federal Confidentiality of Alcohol and Drug Abuse Patient Records regulations: The Federal rules restrict any use of the information to criminally investigate or prosecute any alcohol or drug abuse patient.[facility] HospitalIn the event this information is protected by the Federal Confidentiality of Alcohol and Drug Abuse Patient Records regulations: The Federal rules restrict any use of the information to criminally investigate or prosecute any alcohol or drug abuse patient.[facility] HospitalIn the event this information is protected by the Federal Confidentiality of Alcohol and Drug Abuse Patient Records regulations: The Federal rules restrict any use of the information to criminally investigate or prosecute any alcohol or drug abuse patient.[facility] HospitalIn the event this information is protected by the Federal Confidentiality of Alcohol and Drug Abuse Patient Records regulations: The Federal rules restrict any use of the information to criminally investigate or prosecute any alcohol or drug abuse patient.[facility] HospitalIn the event this information is protected by the Federal Confidentiality of Alcohol and Drug Abuse Patient Records regulations: The Federal rules restrict any use of the information to criminally investigate or prosecute any alcohol or drug abuse patient.[facility] HospitalIn the event this information is protected by the Federal Confidentiality of Alcohol and Drug Abuse Patient Records regulations: The Federal rules restrict any use of the information to criminally investigate or prosecute any alcohol or drug abuse patient.[facility] HospitalIn the event this information is protected by the Federal Confidentiality of Alcohol and Drug Abuse Patient Records regulations: The Federal rules restrict any use of the information to criminally investigate or prosecute any alcohol or drug abuse patient.[facility] HospitalIn the event this information is protected by the Federal Confidentiality of Alcohol and Drug Abuse Patient Records regulations: The Federal rules restrict any use of the information to criminally investigate or prosecute any alcohol or drug abuse patient.[facility] HospitalIn the event this information is protected by the Federal Confidentiality of Alcohol and Drug Abuse Patient Records regulations: The Federal rules restrict any use of the information to criminally investigate or prosecute any alcohol or drug abuse patient.[facility] HospitalIn the event this information is protected by the Federal Confidentiality of Alcohol and Drug Abuse Patient Records regulations: The Federal rules restrict any use of the information to criminally investigate or prosecute any alcohol or drug abuse patient.[facility] HospitalIn the event this information is protected by the Federal Confidentiality of Alcohol and Drug Abuse Patient Records regulations: The Federal rules restrict any use of the information to criminally investigate or prosecute any alcohol or drug abuse patient.[facility] HospitalIn the event this information is protected by the Federal Confidentiality of Alcohol and Drug Abuse Patient Records regulations: The Federal rules restrict any use of the information to criminally investigate or prosecute any alcohol or drug abuse patient.[facility] HospitalIn the event this information is protected by the Federal Confidentiality of Alcohol and Drug Abuse Patient Records regulations: The Federal rules restrict any use of the information to criminally investigate or prosecute any alcohol or drug abuse patient.[facility] HospitalIn the event this information is protected by the Federal Confidentiality of Alcohol and Drug Abuse Patient Records regulations: The Federal rules restrict any use of the information to criminally investigate or prosecute any alcohol or drug abuse patient.[facility] HospitalIn the event this information is protected by the Federal Confidentiality of Alcohol and Drug Abuse Patient Records regulations: The Federal rules restrict any use of the information to criminally investigate or prosecute any alcohol or drug abuse patient.[facility] HospitalIn the event this information is protected by the Federal Confidentiality of Alcohol and Drug Abuse Patient Records regulations: The Federal rules restrict any use of the information to criminally investigate or prosecute any alcohol or drug abuse patient.[facility] HospitalIn the event this information is protected by the Federal Confidentiality of Alcohol and Drug Abuse Patient Records regulations: The Federal rules restrict any use of the information to criminally investigate or prosecute any alcohol or drug abuse patient.[facility] HospitalIn the event this information is protected by the Federal Confidentiality of Alcohol and Drug Abuse Patient Records regulations: The Federal rules restrict any use of the information to criminally investigate or prosecute any alcohol or drug abuse patient.[facility] HospitalIn the event this information is protected by the Federal Confidentiality of Alcohol and Drug Abuse Patient Records regulations: The Federal rules restrict any use of the information to criminally investigate or prosecute any alcohol or drug abuse patient.[facility] HospitalIn the event this information is protected by the Federal Confidentiality of Alcohol and Drug Abuse Patient Records regulations: The Federal rules restrict any use of the information to criminally investigate or prosecute any alcohol or drug abuse patient.[facility] HospitalIn the event this information is protected by the Federal Confidentiality of Alcohol and Drug Abuse Patient Records regulations: The Federal rules restrict any use of the information to criminally investigate or prosecute any alcohol or drug abuse patient.[facility] HospitalIn the event this information is protected by the Federal Confidentiality of Alcohol and Drug Abuse Patient Records regulations: The Federal rules restrict any use of the information to criminally investigate or prosecute any alcohol or drug abuse patient.[facility] HospitalIn the event this information is protected by the Federal Confidentiality of Alcohol and Drug Abuse Patient Records regulations: The Federal rules restrict any use of the information to criminally investigate or prosecute any alcohol or drug abuse patient.[facility] HospitalIn the event this information is protected by the Federal Confidentiality of Alcohol and Drug Abuse Patient Records regulations: The Federal rules restrict any use of the information to criminally investigate or prosecute any alcohol or drug abuse patient.[facility] HospitalIn the event this information is protected by the Federal Confidentiality of Alcohol and Drug Abuse Patient Records regulations: The Federal rules restrict any use of the information to criminally investigate or prosecute any alcohol or drug abuse patient.[facility] HospitalIn the event this information is protected by the Federal Confidentiality of Alcohol and Drug Abuse Patient Records regulations: The Federal rules restrict any use of the information to criminally investigate or prosecute any alcohol or drug abuse patient.[facility] HospitalIn the event this information is protected by the Federal Confidentiality of Alcohol and Drug Abuse Patient Records regulations: The Federal rules restrict any use of the information to criminally investigate or prosecute any alcohol or drug abuse patient.[facility] HospitalIn the event this information is protected by the Federal Confidentiality of Alcohol and Drug Abuse Patient Records regulations: The Federal rules restrict any use of the information to criminally investigate or prosecute any alcohol or drug abuse patient.[facility] HospitalIn the event this information is protected by the Federal Confidentiality of Alcohol and Drug Abuse Patient Records regulations: The Federal rules restrict any use of the information to criminally investigate or prosecute any alcohol or drug abuse patient.[facility] HospitalIn the event this information is protected by the Federal Confidentiality of Alcohol and Drug Abuse Patient Records regulations: The Federal rules restrict any use of the information to criminally investigate or prosecute any alcohol or drug abuse patient.[facility] HospitalIn the event this information is protected by the Federal Confidentiality of Alcohol and Drug Abuse Patient Records regulations: The Federal rules restrict any use of the information to criminally investigate or prosecute any alcohol or drug abuse patient.[facility] HospitalIn the event this information is protected by the Federal Confidentiality of Alcohol and Drug Abuse Patient Records regulations: The Federal rules restrict any use of the information to criminally investigate or prosecute any alcohol or drug abuse patient.[facility] HospitalIn the event this information is protected by the Federal Confidentiality of Alcohol and Drug Abuse Patient Records regulations: The Federal rules restrict any use of the information to criminally investigate or prosecute any alcohol or drug abuse patient.[facility] HospitalIn the event this information is protected by the Federal Confidentiality of Alcohol and Drug Abuse Patient Records regulations: The Federal rules restrict any use of the information to criminally investigate or prosecute any alcohol or drug abuse patient.[facility] HospitalIn the event this information is protected by the Federal Confidentiality of Alcohol and Drug Abuse Patient Records regulations: The Federal rules restrict any use of the information to criminally investigate or prosecute any alcohol or drug abuse patient.[facility] HospitalIn the event this information is protected by the Federal Confidentiality of Alcohol and Drug Abuse Patient Records regulations: The Federal rules restrict any use of the information to criminally investigate or prosecute any alcohol or drug abuse patient.[facility] Reason for Visit (unrecogniz ed section and content) Reason Comments PT Progress Note PT Discharge Specialty Diagnoses / Procedures Referred By Contac t Referred To Contact PHYSICAL THERAPY Diagnoses Mechanical loosening of internal right knee prosthetic joint, subsequent encounter Procedures EST RS PHYSICAL THERAPY Yanira Garcia MD [address] [id number] [address] [place] [address] Referral ID Status Reason Start Date Expiration Date V isits Requested Visits Authorized [id number] Authorized 07/27/2023 07/26/2024 99 99 Reason Comments Physical Therapy Reason Comments Patient Question Appointment Reason Comments Established Patient Stiffness Follow Up Stiffness Swelling Stiffness Knee Replacement Stiffness Follow Up Swelling, Stiffness, Occasional Sharp Pain Reason Comments Patient Update Reason Comments CoPat Start Reason Comments Patient Question Reason Comments Home Care MD to Follow Reason Comments Home Care Reason Onset Date Comments Refill Request 05/20/2022 Reason Onset Date Comments Refill Request 05/23/2022 Reason Comments Established Patient Post Op Knee Replacement Knee Pain Reason Comments Swollen Neck Below left ear ryan o f, pts that she uses ear drops during occurrence, appears ear, sensitive to the touch, no drainage at ear site. Reason Comments Knee Replacement Follow Up Reason Comments Established Patient Follow Up Knee Replacement Reason Comments Established Patient Knee Pain Knee Replacement Reason Comments Radiology [place] Reason Comments Established Patient Knee Replacement Knee Pain Follow Up Reason Comments Pre-Op Visit Reason Comments Pre-Op Update Abnormal PACC labs Reason Comments Home Care PT SOC Confirmation Call Reason Comments Home Care Start of care schedu ling Reason Comments Home Care Confirmation Call Reason Comments Home Care Vitals Reason Comments Home Care Lymph node Reason Comments Home Care Discharge planning Reason Comments PT Eval Reason Comments Established Patient Follow Up Post Op Knee Replacement Reason Comments Med Change Request Reason Comments Post Op revision Knee Replacement revision Reason Comments Follow Up revision Knee Replacement revision Reason Comments URI Sinus drainage/conge stion, productive cough, watery eyes, and sore throat x's 6 days Reason Comments Follow Up Knee Replacement Care Teams (unrecognized sec tion and content) Pipe Threader Relationship Specialty Start Date End Date Deanna Aponte, [address] [place] [address] PCP - General Internal Medicine 01/25/18 Xavier River MD [address] [facility] [address] [place] [address] Home Care Provider Orthopedics 01/20/19 Pipe Threader Relationship Specialty Start Date End Date Deanna Aponte, DO [address] [place] [address] PCP - General Internal Medicine 01/25/18 Xavier River MD [address] [place] [address] Home Care Provider Orthopedics 01/20/19 Pipe Threader Relationship Specialty Start Date End Date Deanna Aponte, DO [address] [place] [address] PCP - General Internal Medicine 01/25/18 Xavier River MD [address] [place] [address] Home Care Provider Orthopedics 01/20/19 Pipe Threader Relationship Specialty Start Date End Date Deanna Aponte, DO [address] [place] [address] PCP - General Internal Medicine 01/25/18 Xavier River MD [address] [place] [address] Home Care Provider Orthopedics 01/20/19 Pipe Threader Relationship Specialty Start Date End Date Deanna Aponte, DO [address] [place] [address] PCP - General Internal Medicine 01/25/18 Xavier River MD [facility] [address] [address] Home Care Provider Orthopedics 01/20/19 Pipe Threader Relationship Specialty Start Date End Date Deanna Aponte, DO [address] [place] [address] PCP - General Internal Medicine 01/25/18 Yanira Garcia MD [address] [address] Home Care Provider Orthopedics 05/17/22 Royce Peterson Pa-C, PASonidoC Referring 05/17/22 Divya Solomon, RN [address] [place] [address] Deputy Harbormaster Post Acute Care 05/17/22 Pipe Threader Relationship Specialty Start Date End Date Deanna Aponte, DO [address] [place] [address] PCP - General Internal Medicine 01/25/18 Yanira Gacria MD [address] [address] Home Care Provider Orthopedics 05/17/22 Royce Peterson Pa-C, PASonidoC Referring 05/17/22 Divya Solomon RN [address] [facility] [place] [address] Deputy Harbormaster Post Acute Care 05/17/22 Pipe Threader Relationship Specialty Start Date End Date Deanna Aponte, DO [address] [place] [address] PCP - General Internal Medicine 01/25/18 Yanira Garcia MD [address] [address] Home Care Provider Orthopedics 05/17/22 Royce Peterson Pa-C, PANikia Referring 05/17/22 Divya Solomon, ANDRES [address] [place] [address] Deputy Harbormaster Post Acute Care 05/17/22 Pipe Threader Relationship Specialty Start Date End Date Deanna Aponte, DO [address] [place] [address] PCP - General Internal Medicine 01/25/18 Yanira Garcia MD [address] [address] Home Care Provider Orthopedics 05/17/22 Royce Peterson Pa-C, JAYDEN Referring 05/17/22 Divya Solomon RN [address] [facility], [place] [address] Deputy Harbormaster Post Acute Care 05/17/22 Pipe Threader Relationship Specialty Start Date End Date Deanna Aponte, DO [address] [place] [address] PCP - General Internal Medicine 01/25/18 Xavier River MD [address] [address] Home Care Provider Orthopedics 01/20/19 05/16/22 Yanira Garcia MD [address] [address] Home Care Provider Orthopedics 05/17/22 Royce Peterson Pa-C, JAYDEN Referring 05/17/22 Divya Solomon RN [address] [facility], [place] [address] Deputy Harbormaster Post Acute Care 05/17/22 Pipe Threader Relationship Specialty Start Date End Date Deanna Aponte, DO [address] [place] [address] PCP - General Internal Medicine 01/25/18 Yanira Garcia MD [address] [address] Home Care Provider Orthopedics 05/17/22 Royce Peterson Pa-C, JAYDEN Referring 05/17/22 Divya Solomon RN [address] [place] [address] Deputy Harbormaster Post Acute Care 05/17/22 Pipe Threader Relationship Specialty Start Date End Date Deanna Aponte Maggi, DO [address] [place] [address] PCP - General Internal Medicine 01/25/18 Yanira Garcia MD [address] [address] Home Care Provider Orthopedics 05/17/22 Royce Peterson Pa-C, PA-C Referring 05/17/22 Divya Solomon RN [address] [place] [address] Deputy Harbormaster Post Acute Care 05/17/22 Pipe Threader Relationship Specialty Start Date End Date Christal Apontesuzanna Hoyt, DO [address] [place] [address] PCP - General Internal Medicine 01/25/18 Yanira Garcia MD [address] [address] Home Care Provider Orthopedics 05/17/22 Royce Peterson Pa-C, PA-C Referring 05/17/22 Divya Solomon RN [address] [place] [address] Deputy Harbormaster Post Acute Care 05/17/22 Pipe Threader Relationship Specialty Start Date End Date Pipo Apontesofiya Hoyt, DO [address] [place] [address] PCP - General Internal Medicine 01/25/18 Yanira Garcia MD [address] [address] Home Care Provider Orthopedics 05/17/22 Royce Peterson Pa-C, PASonidoC Referring 05/17/22 Divya Solomon RN [address] [place] [address] Deputy Harbormaster Post Acute Care 05/17/22 Pipe Threader Relationship Specialty Start Date End Date Deanna Aponte, DO [address] [place] [address] PCP - General Internal Medicine 01/25/18 Yanira Garcia MD [address] [address] Home Care Provider Orthopedics 05/17/22 Royce Peterson Pa-C, PA-C Referring 05/17/22 Divya Solomon RN [address] [place] [address] Deputy Harbormaster Post Acute Care 05/17/22 Pipe Threader Relationship Specialty Start Date End Date Deanna Aponte, DO [address] [place] [address] PCP - General Internal Medicine 01/25/18 Yanira Gracia MD [address] [address] Home Care Provider Orthopedics 05/17/22 Royce Peterson Pa-C, PA-C Referring 05/17/22 Divya Solomon RN [address] [place] [address] Deputy Harbormaster Post Acute Care 05/17/22 Pipe Threader Relationship Specialty Start Date End Date Deanna Aponte, DO [address] [place] [address] PCP - General Internal Medicine 01/25/18 Yanira Garica MD [address] [address] Home Care Provider Orthopedics 05/17/22 Royce Peterson Pa-C, PA-C Referring 05/17/22 Divya Solomon RN [address] [place] [address] Deputy Harbormaster Post Acute Care 05/17/22 Pipe Threader Relationship Specialty Start Date End Date Deanna Aponte, DO [address] [place] [address] PCP - General Internal Medicine 01/25/18 Yanira Garcia MD [address] [address] Home Care Provider Orthopedics 05/17/22 Royce Peterson Pa-C, PA-C Referring 05/17/22 Divya Solomon RN [address] [place] [address] Deputy Harbormaster Post Acute Care 05/17/22 Pipe Threader Relationship Specialty Start Date End Date Deanna Aponte, DO [address] [place] [address] PCP - General Internal Medicine 01/25/18 Yanira Garcia MD [address] [address] Home Care Provider Orthopedics 05/17/22 Royce Peterson Pa-C, PA-C Referring 05/17/22 Divya Solomon RN [address] [place] [address] Deputy Harbormaster Post Acute Care 05/17/22 Pipe Threader Relationship Specialty Start Date End Date Deanna Aponte DO [address] [place] [address] PCP - General Internal Medicine 01/25/18 Yanira Garcia MD [address] [address] Home Care Provider Orthopedics 05/17/22 Royce Peterson Pa-C, PA-C Referring 05/17/22 Divya Solomon, RN [address] [place] [address] Deputy Harbormaster Post Acute Care 05/17/22 Pipe Threader Relationship Specialty Start Date End Date Deanna Aponte, DO [address] [place] [address] PCP - General Internal Medicine 01/25/18 Yanira Garcia MD [address] [address] Home Care Provider Orthopedics 05/17/22 Royce Peterson Pa-C, PASonidoC Referring 05/17/22 Divya Solomon RN [address] [place] [address] Deputy Harbormaster Post Acute Care 05/17/22 Pipe Threader Relationship Specialty Start Date End Date Deanna Aponte, DO [address] [place] [address] PCP - General Internal Medicine 01/25/18 Yanira Garcia MD [address] [address] Home Care Provider Orthopedics 05/17/22 Royce Peterson Pa-C, PASonidoC Referring 05/17/22 Divya Soloomn RN [address] [place] [address] Deputy Harbormaster Post Acute Care 05/17/22 Team Status: Active Member Role Status Dates Dr. Deanna Aponte , DO Family Provider Active Dr. Deanna Aponte , DO Primary Care Provider Active Team Status: Inactive Member Role Status Dates Dr. Deanna Aponte , DO Primary Care Provider, Referr ing Provider Active Shruti De La Cruz [employer], [employer]-C Attending Provider Active Team Status: Inactive Member Role Status Dates Dr. Deanna Aponte , DO Primary Care Provider Active Storm HUANG MD Attending Provider Active Team Status: Inactive Member Role Status Dates Dr. Deanna Aponte DO Primary Care Provider, Attend ing Provider Active Team Status: Inactive Member Role Status Dates Dr. Deanna Aponte DO Primary Care Pr ovider, Attending Provider, Referring Provider Active Pipe Threader Relationship Specialty Start Date End Date Deanna Aponte DO [address] [place] [address] PCP - General Internal Medicine 01/25/18 Yanira Garcia MD [address] [address] Home Care Provider Orthopedics 05/17/22 Royce Peterson Pa-C, JAYDEN Referring 05/17/22 Divya Solomon RN [address] [place] [address] Deputy Harbormaster Post Acute Care 05/17/22 Pipe Threader Relationship Specialty Start Date End Date Deanna Aponte DO [address] [place] [address] PCP - General Internal Medicine 01/25/18 Yanira Garcia MD [address] [address] Home Care Provider Orthopedics 05/17/22 Royce Peterson Pa-C, JAYDEN Referring 05/17/22 Divya Solomon RN [address] [place] [address] Deputy Harbormaster Post Acute Care 05/17/22 Pipe Threader Relationship Specialty Start Date End Date Deanna Aponte DO [address] [place] [address] PCP - General Internal Medicine 01/25/18 Yanira Garcia MD [address] [address] Home Care Provider Orthopedics 05/17/22 Royce Peterson Pa-C, JAYDEN Referring 05/17/22 Divya Solomon, ANDRES [address] [facility], [place] [address] Deputy Harbormaster Post Acute Care 05/17/22 Team Status: Inactive Member Role Status Dates Dr. Deanna Aponte DO Primary Care Provider Active Shruti De La Cruz [employer], [employer]-C Attending Provider, Referring Provider Active Pipe Threader Relationship Specialty Start Date End Date Deanna Aponte DO [address] [place] [address] PCP - General Internal Medicine 01/25/18 Yanira Garcia MD [address] [address] Home Care Provider Orthopedics 05/17/22 Royce Peterson Pa-C, JAYDEN Referring 05/17/22 Divya Solomon RN [address] [facility], [place] [address] Deputy Harbormaster Post Acute Care 05/17/22 Pipe Threader Relationship Specialty Start Date End Date Deanna Aponte DO [address] [place] [address] PCP - General Internal Medicine 01/25/18 Yanira Garcia MD [address] [address] Home Care Provider Orthopedics 05/17/22 Royce Peterson Pa-C, JAYDEN Referring 05/17/22 Divya Solomon RN [address] [place], [place] [address] Deputy Harbormaster Post Acute Care 05/17/22 Pipe Threader Relationship Specialty Start Date End Date Deanna Aponte DO [address] [place] [address] PCP - General Internal Medicine 01/25/18 Yanira Garcia MD [address] [address] Home Care Provider Orthopedics 05/17/22 Royce Peterson Pa-C, JAYDEN Referring 05/17/22 Divya Solomon, ANDRES [address] [place] [address] Deputy Harbormaster Post Acute Care 05/17/22 Pipe Threader Relationship Specialty Start Date End Date Deanna Aponte DO [address] [place] [address] PCP - General Internal Medicine 01/25/18 Yanira Garcia MD [address] [address] Home Care Provider Orthopedics 05/17/22 Royce Peterson Pa-C, JAYDEN Referring 05/17/22 Divya Solomon RN [address] [place] [address] Deputy Harbormaster Post Acute Care 05/17/22 Pipe Threader Relationship Specialty Start Date End Date Deanna Aponte DO [address] [place] [address] PCP - General Internal Medicine 01/25/18 Yanira Garcia MD [address] [address] Home Care Provider Orthopedics 05/17/22 Royce Peterson Pa-C, JAYDEN Referring 05/17/22 Divya Solomon RN [address] [place] [address] Deputy Harbormaster Post Acute Care 05/17/22 Pipe Threader Relationship Specialty Start Date End Date Deanna Aponte DO [address] [facility] [address] [place] [address] PCP - General Internal Medicine 01/25/18 Yanira Gracia MD [address] [address] Home Care Provider Orthopedics 05/17/22 Royce Peterson Pa-C, PASonidoC Referring 05/17/22 Divya Solomon RN [address] [place] [address] Deputy Harbormaster Post Acute Care 05/17/22 Pipe Threader Relationship Specialty Start Date End Date Deanna Aponte DO [address] [facility] [address] [place] [address] PCP - General Internal Medicine 01/25/18 Yanira Garcia MD [address] [place] [address] Home Care Provider Orthopedics 05/17/22 Royce Peterson Pa-C, PASonidoC Referring 05/17/22 Divya Solomon RN [address] [place] [address] Deputy Harbormaster Post Acute Care 05/17/22 Pipe Threader Relationship Specialty Start Date End Date Deanna Aponte DO [address] [facility] [address] [place] [address] PCP - General Internal Medicine 01/25/18 Yanira Garcia MD [address] [address] Home Care Provider Orthopedics 05/17/22 Royce Peterson Pa-C, JAYDEN Referring 05/17/22 Candace Raymundo, PT [address] [facility] [place] [address] Deputy Harbormaster Post Acute Care 12/04/23 Pipe Threader Relationship Specialty Start Date End Date Deanna Aponte DO [address] [place] [address] PCP - General Internal Medicine 01/25/18 Yanira Garcia MD [address] [address] Home Care Provider Orthopedics 05/17/22 Royce Peterson Pa-C, JAYDEN Referring 05/17/22 Candace Raymundo, PT [address] [facility] [place] [address] Deputy Harbormaster Post Acute Care 12/04/23 Pipe Threader Relationship Specialty Start Date End Date Deanna Aponte DO [address] [place] [address] PCP - General Internal Medicine 01/25/18 Yanira Garcia MD [address] [address] Home Care Provider Orthopedics 05/17/22 Royce Peterson Pa-C, PA-C Referring 05/17/22 Candace Raymudno, PT [address] [facility] [place] [address] Deputy Harbormaster Post Acute Care 12/04/23 Pipe Threader Relationship Specialty Start Date End Date Deanna Aponte DO [address] [place] [address] PCP - General Internal Medicine 01/25/18 Yanira Garcia MD [address] [address] Home Care Provider Orthopedics 05/17/22 Royce Peterson Pa-C, PASonidoC Referring 05/17/22 Candace Raymundo, PT [address] [facility] [place], [place] [address] Deputy Harbormaster Post Acute Care 12/04/23 Pipe Threader Relationship Specialty Start Date End Date Deanna Aponte DO [address] [place] [address] PCP - General Internal Medicine 01/25/18 Yanira Garcia MD [address] [place] [address] Home Care Provider Orthopedics 05/17/22 Royce Peterson Pa-C, PASonidoC Referring 05/17/22 Candace Raymundo, PT [address] [place] [address] Deputy Harbormaster Post Acute Care 12/04/23 Pipe Threader Relationship Specialty Start Date End Date Deanna Aponte DO [address] [place] [address] PCP - General Internal Medicine 01/25/18 Yanira Garcia MD [address] [address] Home Care Provider Orthopedics 05/17/22 Royce Peterson Pa-C, JAYDEN Referring 05/17/22 Candace Raymundo, PT [address] [facility] [place] [address] Deputy Harbormaster Post Acute Care 12/04/23 Pipe Threader Relationship Specialty Start Date End Date Deanna Aponte DO [address] [place] [address] PCP - General Internal Medicine 01/25/18 Yanira Garcia MD [facility] [address] [address] Home Care Provider Orthopedics 05/17/22 Royce Peterson Pa-C, JAYDEN Referring 05/17/22 Candace Raymundo, PT [address] [facility] [place] [address] Deputy Harbormaster Post Acute Care 12/04/23 Pipe Threader Relationship Specialty Start Date End Date Deanna Aponte DO [address] [place] [address] PCP - General Internal Medicine 01/25/18 Yanira Garcia MD [address] [address] Home Care Provider Orthopedics 05/17/22 Royce Peterson Pa-C, JAYDEN Referring 05/17/22 Candace Raymundo, PT [address] [facility] [place] [address] Deputy Harbormaster Post Acute Care 12/04/23 Pipe Threader Relationship Specialty Start Date End Date Deanna Apnote DO [address] [place] [address] PCP - General Internal Medicine 01/25/18 Yanira Garcia MD [address] [address] Home Care Provider Orthopedics 05/17/22 Royce Peterson Pa-C, PASonidoC Referring 05/17/22 Candace Raymundo, PT [address] [facility] [place], [place] [address] Deputy Harbormaster Post Acute Care 12/04/23 Pipe Threader Relationship Specialty Start Date End Date Deanna Aponte DO [address] [place] [address] PCP - General Internal Medicine 01/25/18 Yanira Garcia MD [address] [address] Home Care Provider Orthopedics 05/17/22 Royce Peterson Pa-C, PASonidoC Referring 05/17/22 Candace Raymundo, PT [address] [facility] [place] [address] Deputy Harbormaster Post Acute Care 12/04/23 Pipe Threader Relationship Specialty Start Date End Date Deanna Aponte DO [address] [place], [place] [address] PCP - General Internal Medicine 01/25/18 Yanira Garcia MD [address] [address] Home Care Provider Orthopedics 05/17/22 Royce Peterson Pa-C, JAYDEN Referring 05/17/22 Candace Raymundo, PT [address] [place], [place] [address] Deputy Harbormaster Post Acute Care 12/04/23 Pipe Threader Relationship Specialty Start Date End Date Deanna Aponte DO [address] [place] [address] PCP - General Internal Medicine 01/25/18 Yanira Garcia MD [address] [address] Home Care Provider Orthopedics 05/17/22 Royce Peterson Pa-C, JAYDEN Referring 05/17/22 Pipe Threader Relationship Specialty Start Date End Date Deanna Aponte DO [address] [place] [address] PCP - General Internal Medicine 01/25/18 Yanira Garcia MD [address] [address] Home Care Provider Orthopedics 05/17/22 Royce Peterson Pa-C, JAYDEN Referring 05/17/22 Pipe Threader Relationship Specialty Start Date End Date Deanna Aponte DO [address] [place] [address] PCP - General Internal Medicine 01/25/18 Yanira Garcia MD [address] [address] Home Care Provider Orthopedics 05/17/22 Royce Peterson Pa-C, JAYDEN Referring 05/17/22 Candace Raymundo, PT [address] [place] [phone] Deputy Harbormaster Post Acute Care 12/04/23 01/21/24 Pipe Threader Relationship Specialty Start Date End Date Deanna Aponte DO [address] [place] [address] PCP - General Internal Medicine 01/25/18 Yanira Garcia MD [address] [address] Home Care Provider Orthopedics 05/17/22 Royce Peterson Pa-C, JAYDEN Referring 05/17/22 Divya Solomon RN [address] [place] [phone] Deputy Harbormaster Post Acute Care 05/17/22 12/03/23 Pipe Threader Relationship Specialty Start Date End Date Deanna Aponte DO [address] [place] [address] PCP - General Internal Medicine 01/25/18 Yanira Garcia MD [address] [address] Home Care Provider Orthopedics 05/17/22 Royce Peterson Pa-C, JAYDEN Referring 05/17/22 Divya Solomon RN [address] [place], [place] [phone] Deputy Harbormaster Post Acute Care 05/17/22 12/03/23 Pipe Threader Relationship Specialty Start Date End Date Deanna Aponte DO [address] [facility] [address] [place] [address] PCP - General Internal Medicine 01/25/18 Yanira Garcia MD [address] [address] Home Care Provider Orthopedics 05/17/22 Royce Peterson Pa-C, JAYDEN Referring 05/17/22 Pipe Threader Relationship Specialty Start Date End Date Deanna Aponte DO [address] [place] [address] PCP - General Internal Medicine 01/25/18 Yanira Garcia MD [address] [address] Home Care Provider Orthopedics 05/17/22 Royce Peterson Pa-C, JAYDEN Referring 05/17/22 Pipe Threader Relationship Specialty Start Date End Date Deanna Aponte DO [address] [place] [address] PCP - General Internal Medicine 01/25/18 Yanira Garcia MD [address] [address] Home Care Provider Orthopedics 05/17/22 Royce Peterson Pa-C, JAYDEN Referring 05/17/22 Pipe Threader Relationship Specialty Start Date End Date Deanna Aponte DO [address] [place] [address] PCP - General Internal Medicine 01/25/18 Yanira Garcia MD [address] [address] Home Care Provider Orthopedics 05/17/22 Royce Peterson Pa-C, JAYDEN Referring 05/17/22 Pipe Threader Relationship Specialty Start Date End Date Deanna Aponte DO [address] [facility] [address] [place] [address] PCP - General Internal Medicine 01/25/18 Yanira Garcia MD [address] [address] Home Care Provider Orthopedics 05/17/22 Royce Peterson Pa-C, PA-C Referring 05/17/22 Team Status: Active Member Role/Relationship Status Dates Dr. Deanna Aponte DO Primary Care Provider Active Team Status: Inactive Member Role/Relationship Status Dates Dr. Deanna Aponte DO Primary Care Provider Active Start: February 22, 2025 End: February 22, 2025 Dr. Deanna Aponte DO Referring Provider Active Start: February 22, 2025 End: February 22, 2025 Shruti De La Cruz NP, NP-C Attending Provider Active Start: February 22, 2025 End: February 22, 2025 Team Status: Inactive Member Role/Relationship Status Dates Dr. Deanna Aponte DO Primary Care Provider Active Start: March 06, 2025 End: March 06, 2025 KVNG Chandler NP Attending Provider Active Start: March 06, 2025 End: March 06, 2025 Shruti De La Cruz NP, NP-C Referring Provider Active Start: March 06, 2025 End: March 06, 2025 Goals (unrecognized section and content) Goals may be documented in a n alternate sectionGoals may be documented in an alternate sectionGoals may be documented in an alternate sectionGoals may be documented in an alternate sectionGoals may be documented in an alternate section FOR RECORDS PERTAINING TO PATIENTS WHO ARE OR HAVE BEEN ENROLLED IN A CHEMICAL DEPENDENCY/SUBSTANCEABUSE PROGRAM, SOME INFORMATION MAY BE OMITTED. This clinical summary was aggregated from multiple sources. Caution should be exercised in using it in the provision of clinical care. This summary normalizes information from multiple sources, and as a consequence, information in this document may materially change the coding, format and clinical context of patient data. In addition, data may be omitted in some cases. CLINICAL DECISIONS SHOULD BE BASED ON THE PRIMARY CLINICAL RECORDS. [facility] [employer] [facility] provides no warranty or guarantee of the accuracy or completeness of information in this document.
--- NOTE | 2025-06-06 12:26 | STRESSREP ---
Stress Test Report Date: 06/06/2025 Procedure: Exercise tolerance test/imaging study Indications: Chest pain Consent: Per the patient Procedure: The patient exercised on a Ras protocol for 5 minutes and 10 seconds achieving a peak heart rate of 130 bpm (87% predicted maximal heart rate) with a peak blood pressure 152/72 mmHg and a peak MET capacity of 7.0 METs. The baseline ECG demonstrated sinus rhythm. The peak exercise ECG showed sinus tachycardia. No ischemic changes with exercise or in recovery. No significant cardiac dysrhythmias noted. The functional capacity was considered very good for age. There was no complaint of chest discomfort during exercise or recovery. The examination was discontinued secondary to target heart rate being achieved and dyspnea. The patient was injected with 11.8 mCi of technetium 99m Cardiolite and subsequently rest SPECT Cardiolite nuclear imaging was obtained in the horizontal long, vertical long, and short axis views. Post-exercise, the patient was injected with 34.4 mCi of technetium 99m Cardiolite and subsequently stress SPECT Cardiolite nuclear imaging was obtained in the horizontal long, vertical long, and short axis views. A gated Cardiolite study at peak stress was obtained. Rest and stress SPECT Cardiolite nuclear imaging status post realignment, normalization, and attenuation correction, demonstrates the appearance of relative uniform tracer uptake and myocardial perfusion appearing within normal limits. There is end systolic thickening and brightening. The gated Cardiolite study demonstrates myocardial thickening and inward wall motion. The reported LVEF is 82%. Impression: 1. Technically adequate (percent predicted maximal heart rate greater than 85%) exercise tolerance test 2. Peak exercise ECG with no ischemic changes 3. No significant cardiac dysrhythmias noted. No chest pain reported 4. Rest and stress SPECT Cardiolite nuclear imaging demonstrate relative uniform tracer uptake and myocardial perfusion appearing within normal limits. 5. The gated Cardiolite study reports an LVEF of 82%. This note was generated with [employer] software. It may contain incorrect words, spelling, and punctuation that were not noted in checking the note before signing.
== END | disposition home or self-care (01) ==
LOC: CVS 06:38
PROVIDERS: PCP Internal Medicine; Referring Provider Internal Medicine; Visit Provider Internal Medicine
DX: R07.89 Other chest pain (principal); R94.31 Abnormal electrocardiogram [ECG] [EKG]
CPT/HCPCS: 78452; 93017; 93306; A9500; A4216

== ENCOUNTER → 2025-07-05 | Outpatient (CLI) | payer MEDICARE, OTHER, SELFPAY ==
[2025-07-05 13:01] LABS: AST(SGOT) 33 U/L (<=31); Alanine Aminotransfer ALT/SGPT 21 U/L (<=34); Albumin, Serum 4.3 g/dL (3.4-4.8); Alkaline Phosphatase 93 U/L (35-104); Anion Gap 11 (5-15); BUN 12 mg/dL (4-19); BUN/Creat Ratio 16.3 RATIO (10-20); Calcium,Total 10.0 mg/dL (7.6-11.0); Carbon Dioxide 25.6 mmol/L (21.0-32.0); Chloride 104 mmol/L (98-108); Globulin 2.6 g/dL (2.2-4.2); Glucose 98 mg/dL (70-99); Potassium 4.5 mmol/L (3.3-5.1)
== END | disposition home or self-care (01) ==
LOC: MTLAB 09:20
PROVIDERS: PCP Internal Medicine; Referring Provider Internal Medicine; Visit Provider Internal Medicine
DX: I10 Essential (primary) hypertension (principal); R73.09 Other abnormal glucose
CPT/HCPCS: 36415; 80053; 83036